=== PATIENT | female | born 1945 | race Caucasian/White ===

== ENCOUNTER → 2018-04-01 00:46 | Outpatient (CLI) | payer MEDICARE, OTHER, SELFPAY ==
--- NOTE | 2018-04-01 09:30 | MERGEMPI_ITS ---
*[facility]* *[facility]* [address] [place] [address] Myocardial Perfusion Imaging - SPECT Yao protocol Date of study: 04/01/2018 *PATIENT PRESENTATION* Height: 160cm (63in) Blood Pressure: Weight: 97.3kg (214lb) BSA: 2.13m^2 Referring physician: Joel Heaton Ordering physician: Jena Mitchell Impressions: In this patient with moderate risk sue treadmill score the pefusion scan being normal predicts a low risk of cardiac events. Summary: 1. Myocardial perfusion imaging: No myocardial perfusion defects noted. 2. The calculated left ventricular ejection fraction after stress: 63%. LV global systolic function is normal. No left ventricular regional motion abnormality. 3. Stress ECG conclusions: The stress ECG is negative. Sue treadmill score: 4. This score predicts a moderate risk of cardiac events. 4. Stress: The target heart rate was achieved. There is resting hypertension with a blunted response to stress. Exercise capacity is fair (6 METS). 5. Baseline ECG: Normal ECG. Indication: R07.9. History: REASON FOR TESTING: VERY OCASIONAL CHEST CRAMPING WITH LEFT ARM NUMBNESS. PMH: NEUROGENIC MEDIATED PRESYNCOPE, CEREBRAL POSTERIOR CIRCULATION DISEASE, SVT, HEADACHES, HYPERTENSION, SLEEP APNEA, GERD, HYPOTHYROIDISM, PROBABLE CVA VS TIA. 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 BREAST CANCER. FAMILY HX: FATHER-CAD. SMOKING: NEVER SMOKER. EXCERCISE: WALKS DAILY. Risk factors: Family history of coronary artery disease. Hypertension. Obesity. Cholesterol: 246mg/dl. HDL: 34mg/dl. LDL: 198mg/dl. Triglycerides: 144mg/dl. ALLERGIES: ANASTROZOLE 1 MG DAILY, DILTIAZEM HCL 300 MG DAILY, ESCITALOPRAM OXALATE 20 MG DAILY, FLAXSEED OIL 4000 MG DAILY, FLUTICASONE PROPIONATE 2 SPRAYS DAILY NEEDED, HYDROCHLOROTHIAZIDE 25 MG DAILY, ADVIL PM 1 NEEDED, LEVOTHYROXINE 137 MCG DAILY, LOSARTAN 100 MG DAILY, MAGNESIUM OXIDE 400 MG DAILY, OMEPRAZOLE 40 MG DAILY. Imaging Technique: Protocol: Yao protocol. Acquisition: Gated SPECT; 1 day - rest/stress. The patient was imaged in the supine position. Attenuation correction used. Isotope administration: - Rest. Tc[99m]-sestamibi. Dose: 10.4mCi. Injection time: 08:30 AM. Injection to stress time: 00:45. - Stress. Tc[99m]-sestamibi. Dose: 33mCi. Injection time: 10:50 AM. 1-2 min before end of exercise Baseline ECG: LAST EKG 06/13/16 SINUS RHYTHM, HR 60. TODAY'S EKG-SINUS RHYTHM, HR 69. Normal ECG. Stress protocol: + +---+ +---+ !Stage !HR !BP (mmHg) !Sat! + +---+ +---+ !Baseline supine !69 !168/80 (109)!---! + +---+ +---+ !Baseline standing !75 !166/80 (109)!97%! + +---+ +---+ !Stage I; 1.7mph, 10degrees; 3 min!119!174/80 (111)!95%! + +---+ +---+ !Recovery; 1 min !119!170/76 (107)!---! + +---+ +---+ !Recovery; 3 min !81 !178/80 (113)!---! + +---+ +---+ !Recovery; 6 min !76 !170/74 (106)!---! + +---+ +---+ * Stress results: Maximal heart rate during stress was 138bpm (95% of maximal predicted heart rate). The maximal predicted heart rate was 145bpm. The target heart rate was achieved. There is resting hypertension with a blunted response to stress. The rate-pressure product for the peak heart rate and blood pressure was 68134fm Hg/min. Exercise capacity is fair (6 METS). Stress ECG: EXCERCISE TESTING ENDED IN 4 MINS 14 SECS DUE TO FATIGUE. MAX HR WAS 138, 95% OF TARGET. NORMAL BLOOD PRESSURE RESPONSE. METS: 6.11 ECTOPY: NONE SEEN. ANGINA: NO REPORTED CHEST PAIN OR PRESSURE. ISCHEMIA: NO ISCHEMIC CHANGES NOTED. FUNCTIONAL CAPACITY: AVERAGE CAPACITY. The stress ECG is negative. Sue treadmill score: 4. This score predicts a moderate risk of cardiac events. Myocardial perfusion: Imaging information: gated. The image quality was good. Left ventricular size is normal. Right ventricular size is normal. No myocardial perfusion defects noted. Ventricular Function (Wall Motion): The calculated left ventricular ejection fraction after stress: 63%. LV global systolic function is normal. No left ventricular regional motion abnormality. Right ventricular function is normal. Study data: Joel Heaton MD supervised and was readily available during the procedure. This study was interpreted by [facility]. Study status: Routine. Consent: The risks, benefits, and alternatives to the procedure were explained to the patient and informed consent was obtained. Procedure: Initial setup. A baseline ECG was recorded. Surface ECG leads and manual cuff blood pressure measurements were monitored. Heart sounds: Normal. Lung sounds: Normal. Treadmill exercise testing was performed using the Yao protocol. Study completion: All catheters inserted during the procedure were removed. The patient tolerated the procedure well and was discharged from the lab. Discharge: The patient left the laboratory in stable condition. Birthdate: Patient birthdate: 1945. Sex: Gender: female. Study date: Study date: 04/01/2018. Study time: 12:30 PM. Signature Documentation: - The imaging portion of this study was interpreted by Nuclear Biomedical Engineer Joel Heaton MD. - The Stress ECG portion of this study was interpreted by Joel Heaton MD. Electronically signed by Joel Heaton 04/01/2018 13:04
== END ==
PROVIDERS: PCP Family Medicine; Visit Provider Family Medicine
DX: R07.89 Other chest pain (principal); R55 Syncope and collapse; R20.0 Anesthesia of skin; I10 Essential (primary) hypertension
CPT/HCPCS: 78452; 93017; 93016; 93018

== ENCOUNTER 2018-05-05 01:59 | Observation (INO) | payer MEDICARE, OTHER, SELFPAY ==
[2018-05-05] VITALS (14 sets, daily range): BP systolic 134–188; BP diastolic 43–83; PULSE 71–91; RESP 16–20; TEMP 36.1–37.1; O2SAT 93–98
[2018-05-05] MEDS: Normal Saline Flush 10 ML SYR IVP ×3 (02:15→08:30)
[2018-05-05 02:32] LABS: Bilirubin Negative (Negative); Blood Negative (Negative); Clarity Clear; Glucose Negative (Negative); Ketones Negative (Negative); Leukocyte Esterase Small (Negative); Nitrite Negative (Negative); Urobilinogen 0.2 EU/dL (Up TO 0.2); pH 5.5 (5-8)
--- NOTE | 2018-05-05 02:38 | W.ED.GENAD ---
Discharge Plan Disposition Patient Disposition: [facility] INPATIENT Condition: Good Discharge Details Chief Complaint: Abd Prob Clinical Impression: Right upper quadrant abdominal pain Primary Care Provider: Jena Mitchell ED Provider: Leonel iKng Meds and New Rx's Prescriptions: No Action anastrozole 1 MG tablet 1 mg PO DAILY RF: 0 diltiazem HCl [Cartia XT] 300 MG capsule,extended release 24hr 300 mg PO DAILY RF: 0 escitalopram oxalate 20 MG tablet 20 mg PO DAILY RF: 0 hydrochlorothiazide 12.5 MG tablet 25 mg PO DAILY RF: 0 ibuprofen-diphenhydramine cit [Advil PM] 1 EACH tablet 1 ea PO PRN RF: 0 levothyroxine 137 MCG tablet 150 mcg PO DAILY RF: 0 omeprazole 40 MG capsule,delayed release(DR/EC) 40 mg PO DAILY RF: 0 magnesium oxide 400 MG capsule 400 mg PO DAILY RF: 0 liraglutide [Victoza 2-Tray] 0.6 mg/0.1 mL (18 mg/3 mL) pen injector RF: 0 Medical Decision Making MDM Narrative Medical decision making narrative: Patient presenting with complaint of pleuritic right sided abdominal pain with tenderness and guarding in the RUQ making this most likely gall bladder disease. IV started and patient made NPO. Labs sent. CT scan ordered. Fentanyl ordered prn for pain. Labs are unremarkable. Urine is contaminated. CT scan shows hepatomegaly and distended gallbladder. Patient continues to have tenderness and guarding on exam. Discussed with surgery, Dr. Mishra for admission for fluids and pain medications and U/S this morning. Patient accepted to surgical service. EKG for admission ordered. Medical Records Medical records reviewed: Yes I reviewed the patient's medical records. Lab Data Lab results reviewed: Yes I reviewed the patient's lab results. Lab results narrative: Patient's labs are unremarkable. Normal WBC. Contaminated urine. ECG Data Attestation: I personally reviewed and interpreted this ECG (s) as follows: Interpretation: Normal sinus rhythm at 77 with normal axis and intervals. Normal EKG HPI - General Adult General Mode of arrival: ambulatory. Date/Time Provider Initiated Documentation: 05/05/18 02:38. Limitations to Documentation: no limitations. Information obtained by: patient, RN notes reviewed and old records reviewed. HPI Narrative: Patient presents to ED with right sided abdominal pain that she noticed just before bed. It has got worse as the night has gone on. She states it hurts more if she takes a deep breath but pain is in abdomen not chest or back. She does not feel short of breath at all. She denies any nausea or vomiting. She has had normal elimination without problems. She has had no fever. She has not noticed a rash. Related Data Home Medications Medication Instructions Recorded Confirmed levothyroxine 150 mcg PO DAILY 09/23/13 05/05/18 magnesium oxide 400 mg PO DAILY 09/23/13 05/05/18 omeprazole 40 mg PO DAILY 09/23/13 05/05/18 anastrozole 1 mg PO DAILY tab-cap 02/29/16 diltiazem HCl [Cartia Xt] 300 mg PO DAILY tab-cap 02/29/16 05/05/18 escitalopram oxalate 20 mg PO DAILY tab-cap 02/29/16 05/05/18 hydrochlorothiazide 25 mg PO DAILY tab-cap 02/29/16 05/05/18 ibuprofen-diphenhydramine cit 1 ea PO PRN 02/29/16 05/05/18 [Advil Pm Caplet] liraglutide [Victoza 2-Tray] 05/05/18 Allergies Allergy/AdvReac Type Severity Reaction Status Date / Time glipizide AdvReac Intermediate body aches Unverified 05/05/18 02:09 Jfaagcq-Kje-Jxr Reductase AdvReac Intermediate Unverified 05/05/18 02:09 Inhibitor General Stated Complaint: Abd Prob JUANITA: 3 Review of Systems Constitutional Denies chills, Denies fever(s), Denies malaise and Denies weakness Eyes Patient Reports system reviewed and no additional complaints, except as docu ENT Reports system reviewed and no additional complaints, except as docu Cardiovascular Denies chest pain, Denies pedal edema, Denies lightheadedness and Denies dyspnea Respiratory Denies cough, Reports pain on inspiration (in abdomen not chest) and Denies dyspnea Gastrointestinal Reports abdominal pain, Denies bloating, Denies constipation, Denies diarrhea, Denies nausea and Denies vomiting Genitourinary Denies hematuria, Denies urinary frequency, Denies difficulty voiding and Denies dysuria Musculoskeletal Reports system reviewed and no additional complaints, except as docu Integumentary/Breasts Reports system reviewed and no additional complaints, except as docu Neurologic Reports system reviewed and no additional complaints, except as docu and Denies weakness PFSH Medical History Diabetes mellitus (Chronic) SVT (supraventricular tachycardia) (Chronic) Syncope (Chronic) Breast Cancer GERD HTN Hypothyroidism Lymphoma Renal Artery stenosis Rotator Cuff Injury Social History Smoking/Tobacco Use Status: Never alcohol intake: never substance use type: does not use Surgical History Excision of neck mass Nail removal (toe) Partial mastectomy with sentinal node Rotator Cuff Repair Exam Const General: cooperative, comfortable and no acute distress Nutritional Appearance: obese Orientation: alert and oriented x3 HENMT Head: normocephalic and atraumatic Mouth: moist mucous membranes Eyes Sclera: sclerae normal Neck Neck: normal visual inspection and supple Resp Effort & Inspection: normal respiratory effort Auscultation: clear to auscultation bilaterally Cardio Rate: regular rate Rhythm: regular rhythm Heart Sounds: S1 normal and S2 normal Pulses: normal peripheral pulses GI Inspection: normal to inspection and non-distended Palpation: soft, not firm, guarding in the RUQ and tender in the RUQ and Guerrero's sign positive Back/Spine/Pelvis Back: no CVA tenderness Skin Rashes: no rashes Neuro General: alert, oriented x3, gait normal, no focal motor deficits and CN's II-XI intact bilaterally Sensory Exam: no sensory deficits noted Extrem General: normal to inspection, no pedal edema and no calf tenderness Course Vital Signs Temperature 97.2 F L 05/05/18 02:01 Pulse 87 05/05/18 02:01 Respiratory Rate 20 05/05/18 02:01 Blood Pressure 186/83 H 05/05/18 02:01 Pulse Oximetry 98 05/05/18 02:01 Temperature 97.2 F L 05/05/18 02:01 Pulse 87 05/05/18 02:01 Respiratory Rate 20 05/05/18 02:01 Blood Pressure 186/83 H 05/05/18 02:01 Pulse Oximetry 98 05/05/18 02:01
[2018-05-05 02:42] LABS: Abs Immature Grans 0.02 k/cumm (0.0-0.09); Absolute Basophil Count 0.02 k/cumm (0.0-0.2); Absolute Eosinophil Count 0.27 k/cumm (0.0-0.7); Absolute Lymphocyte Count 2.06 k/cumm (1.2-3.4); Absolute Monocyte Count 0.75 k/cumm (0.11-0.7); Basophils % 0.2; Eosinophils % 3.2; HCT 41.6 % (36.0-46.0); HGB 13.8 g/dL (12.0-15.5); Immature Grans % 0.2; Lymphocytes % 24.2; Mean Corp. HGB Concentration 33.2 g/dL (32.0-36.0); Mean Corpuscular Hemoglobin 31.2 pg (27.0-33.0); Mean Corpuscular Volume 93.9 fL (80-95); Monocytes % 8.8; Neutrophils % 63.4; Platelet Count 149 x1000/uL (130-400); RBC 4.43 m/cumm (4.00-5.20); RBC Distribution Width 13.9 % (11.7-14.6); White Blood Cell Count 8.52 k/cumm (4.4-10.8)
[2018-05-05 02:50] LABS: Bacteria Moderate HPF (Negative); C & S Indicated? No/Sq. Contamination; Casts Negative LPF (Negative); Crystals Negative HPF (Negative); Epithelial Cells Moderate HPF (Negative); Mucus Negative (Negative); RBC 0-2 (0-2); WBC 20-50 HPF (0-5)
[2018-05-05] MEDS: fentaNYL 100 MCG/2 ML VIAL 50 MCG IVP ×3 (02:53→08:29)
[2018-05-05] MEDS: Lactated Ringers 1,000 ML 150 ML IV (02:53)
[2018-05-05 02:54] LABS: Lipase 217 U/L (73-393)
[2018-05-05 02:59] LABS: ALT 55 U/L (12-78); AST 49 U/L (15-37); Albumin 3.6 g/dL (3.4-5.0); Alkaline Phosphatase 82 U/L (46-116); Anion Gap 7.6 mmol/L (3-11); BUN 20 mg/dL (7-18); Bilirubin, Total 0.6 mg/dL (0.2-1.0); CO2 29.4 mmol/L (21.0-32.0); CREATININE 1.04 mg/dL (0.55-1.02); Calcium 9.2 mg/dL (8.5-10.1); Chloride 103 mmol/L (98-107); Estimated GFR 51.66 (mL/min/1.73m2); Glucose 149 mg/dL (70-100); Potassium 3.9 mmol/L (3.5-5.1); Sodium 140 mmol/L (136-145); Total Protein 7.3 g/dL (6.4-8.2)
--- NOTE | 2018-05-05 03:04 | ED.GENADUL_ITS ---
Discharge Plan Disposition Patient Disposition: [facility] INPATIENT Condition: Good Discharge Details Chief Complaint: Abd Prob Clinical Impression: Right upper quadrant abdominal pain Primary Care Provider: Jena Mitchell ED Provider: Leonel King Meds and New Rx's Prescriptions: No Action anastrozole 1 MG tablet 1 mg PO DAILY RF: 0 diltiazem HCl [Cartia XT] 300 MG capsule,extended release 24hr 300 mg PO DAILY RF: 0 escitalopram oxalate 20 MG tablet 20 mg PO DAILY RF: 0 hydrochlorothiazide 12.5 MG tablet 25 mg PO DAILY RF: 0 ibuprofen-diphenhydramine cit [Advil PM] 1 EACH tablet 1 ea PO PRN RF: 0 levothyroxine 137 MCG tablet 150 mcg PO DAILY RF: 0 omeprazole 40 MG capsule,delayed release(DR/EC) 40 mg PO DAILY RF: 0 magnesium oxide 400 MG capsule 400 mg PO DAILY RF: 0 liraglutide [Victoza 2-Tray] 0.6 mg/0.1 mL (18 mg/3 mL) pen injector RF: 0 Medical Decision Making MDM Narrative Medical decision making narrative: Patient presenting with complaint of pleuritic right sided abdominal pain with tenderness and guarding in the RUQ making this most likely gall bladder disease. IV started and patient made NPO. Labs sent. CT scan ordered. Fentanyl ordered prn for pain. Labs are unremarkable. Urine is contaminated. CT scan shows hepatomegaly and distended gallbladder. Patient continues to have tenderness and guarding on exam. Discussed with surgery, Dr. Mishra for admission for fluids and pain medications and U/S this morning. Patient accepted to surgical service. EKG for admission ordered. Medical Records Medical records reviewed: Yes I reviewed the patient's medical records. Lab Data Lab results reviewed: Yes I reviewed the patient's lab results. Lab results narrative: Patient's labs are unremarkable. Normal WBC. Contaminated urine. ECG Data Attestation: I personally reviewed and interpreted this ECG (s) as follows: Interpretation: Normal sinus rhythm at 77 with normal axis and intervals. Normal EKG HPI - General Adult General Mode of arrival: ambulatory . Date/Time Provider Initiated Documentation: 05/05/18 02:38 . Limitations to Documentation: no limitations . Information obtained by: patient, RN notes reviewed and old records reviewed . HPI Narrative: Patient presents to ED with right sided abdominal pain that she noticed just before bed. It has got worse as the night has gone on. She states it hurts more if she takes a deep breath but pain is in abdomen not chest or back. She does not feel short of breath at all. She denies any nausea or vomiting. She has had normal elimination without problems. She has had no fever. She has not noticed a rash. Related Data Home Medications Medication Instructions Recorded Confirmed levothyroxine 150 mcg PO DAILY 09/23/13 05/05/18 magnesium oxide 400 mg PO DAILY 09/23/13 05/05/18 omeprazole 40 mg PO DAILY 09/23/13 05/05/18 anastrozole 1 mg PO DAILY tab-cap 02/29/16 diltiazem HCl [Cartia Xt] 300 mg PO DAILY tab-cap 02/29/16 05/05/18 escitalopram oxalate 20 mg PO DAILY tab-cap 02/29/16 05/05/18 hydrochlorothiazide 25 mg PO DAILY tab-cap 02/29/16 05/05/18 ibuprofen-diphenhydramine cit 1 ea PO PRN 02/29/16 05/05/18 [Advil Pm Caplet] liraglutide [Victoza 2-Tray] 05/05/18 Allergies Allergy/AdvReac Type Severity Reaction Status Date / Time glipizide AdvReac Intermediate body aches Unverified 05/05/18 02:09 Bjwzowx-Bet-Mox Reductase AdvReac Intermediate Unverified 05/05/18 02:09 Inhibitor General Stated Complaint: Abd Prob JUANITA: 3 Review of Systems Constitutional Denies chills, Denies fever(s), Denies malaise and Denies weakness Eyes Patient Reports system reviewed and no additional complaints, except as docu ENT Reports system reviewed and no additional complaints, except as docu Cardiovascular Denies chest pain, Denies pedal edema, Denies lightheadedness and Denies dyspnea Respiratory Denies cough, Reports pain on inspiration (in abdomen not chest) and Denies dyspnea Gastrointestinal Reports abdominal pain, Denies bloating, Denies constipation, Denies diarrhea, Denies nausea and Denies vomiting Genitourinary Denies hematuria, Denies urinary frequency, Denies difficulty voiding and Denies dysuria Musculoskeletal Reports system reviewed and no additional complaints, except as docu Integumentary/Breasts Reports system reviewed and no additional complaints, except as docu Neurologic Reports system reviewed and no additional complaints, except as docu and Denies weakness PFSH Medical History Diabetes mellitus (Chronic) SVT (supraventricular tachycardia) (Chronic) Syncope (Chronic) Breast Cancer GERD HTN Hypothyroidism Lymphoma Renal Artery stenosis Rotator Cuff Injury Social History Smoking/Tobacco Use Status: Never alcohol intake: never substance use type: does not use Surgical History Excision of neck mass Nail removal (toe) Partial mastectomy with sentinal node Rotator Cuff Repair Exam Const General: cooperative, comfortable and no acute distress Nutritional Appearance: obese Orientation: alert and oriented x3 HENMT Head: normocephalic and atraumatic Mouth: moist mucous membranes Eyes Sclera: sclerae normal Neck Neck: normal visual inspection and supple Resp Effort & Inspection: normal respiratory effort Auscultation: clear to auscultation bilaterally Cardio Rate: regular rate Rhythm: regular rhythm Heart Sounds: S1 normal and S2 normal Pulses: normal peripheral pulses GI Inspection: normal to inspection and non-distended Palpation: soft, not firm, guarding in the RUQ and tender in the RUQ and Guerrero' s sign positive Back/Spine/Pelvis Back: no CVA tenderness Skin Rashes: no rashes Neuro General: alert, oriented x3, gait normal, no focal motor deficits and CN's II- XI intact bilaterally Sensory Exam: no sensory deficits noted Extrem General: normal to inspection, no pedal edema and no calf tenderness Course Vital Signs Temperature 97.2 F L 05/05/18 02:01 Pulse 87 05/05/18 02:01 Respiratory Rate 20 05/05/18 02:01 Blood Pressure 186/83 H 05/05/18 02:01 Pulse Oximetry 98 05/05/18 02:01 Temperature 97.2 F L 05/05/18 02:01 Pulse 87 05/05/18 02:01 Respiratory Rate 20 05/05/18 02:01 Blood Pressure 186/83 H 05/05/18 02:01 Pulse Oximetry 98 05/05/18 02:01
[2018-05-05] MEDS: Omnipaque 350 MG/ML 100 ML BTL IJ (03:13)
--- NOTE | 2018-05-05 03:35 | DI.CT_ITS ---
SYMPTOM/DIAGNOSIS: RUQ PAIN AND TENDERNESS CT ABDOMEN AND PELVIS: Comparison is made with 25 Apr 2016. Images were performed from the lung bases through the ischial tuberosities after IV and without oral contrast. The lung bases are clear. The liver again shows a nodular contour, consistent with cirrhosis. No focal masses are seen. The gallbladder is unremarkable. No wall thickening, stones or abnormal distension seen. The spleen is generous in size measuring 13.5 cm x 15 x 6 cm. A small splenule is again noted. There are small lymph nodes in the region of the celiac axis unchanged The pancreas, adrenals and kidneys are unremarkable. There are mild varices adjacent to the spleen. There is no ascites. The appendix appears normal. There are diverticula in the sigmoid colon but no evidence of diverticulitis. There is a moderate quantity of stool. No small bowel dilatation or wall thickening seen. 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 The endometrium was unremarkable on the previous exam. The bladder appears normal. There are bilateral renal artery stents. There are atherosclerotic changes of the aorta and iliac arteries but no evidence of an aneurysm. Degenerative changes are noted in the spine. No lytic or blastic lesions are identified. IMPRESSION: No acute abnormalities identified. Stable findings of cirrhosis and mild splenomegaly. The gallbladder is unremarkable. Endometrial thickening is noted. Pelvic ultrasound could be considered for further evaluation.
--- NOTE | 2018-05-05 05:11 | DI.VRAD_ITS ---
EXAM: CT Abdomen and Pelvis With Intravenous Contrast EXAM DATE/TIME: 05/05/2018 2:42 AM CLINICAL HISTORY: 73 years old, female; Pain; Abdominal pain; Localized; Right; Patient HX: HX od breast CA in r breast 3 years ago, right sided pain today TECHNIQUE: Axial computed tomography images of the abdomen and pelvis with intravenous contrast. All CT scans at this facility use at least one of these dose optimization techniques: automated exposure control; mA and/or kV adjustment per patient size (includes targeted exams where dose is matched to clinical indication); or iterative reconstruction. Coronal and sagittal reformatted images were created and reviewed. CONTRAST: 100 ml of Omnipaque 350 administered intravenously. COMPARISON: CT - CHEST ABD PELVIS WITH CONTRAST 04/25/2016 9:08 AM FINDINGS: Lower thorax: No acute findings. ABDOMEN: Liver: Moderate hepatic steatosis. Contour of the liver is somewhat nodular. Moderate hepatomegaly. Gallbladder and bile ducts: Gallbladder is moderately distended. Pancreas: Normal. No ductal dilation. Spleen: Small accessory spleen (normal variant). Moderate splenomegaly. Adrenals: Normal. No mass. Kidneys and ureters: Bilateral renal stents are noted. Stomach and bowel: Normal. No obstruction. No mucosal thickening. Appendix: Normal appendix. PELVIS: Bladder: Unremarkable as visualized. Reproductive: Probable bicornuate uterus, better visualized on today's study than on the 2016 study. ABDOMEN and PELVIS: Intraperitoneal space: Normal. No free air. No significant fluid collection. Bones/joints: Moderate degenerative changes, lumbar spine. Mild lumbar scoliosis. Soft tissues: Small, fat containing umbilical hernia. Vasculature: Extensive atherosclerotic change of the aorta and iliac vessels. Aorta is moderately tortuous. Lymph nodes: Normal. No enlarged lymph nodes. IMPRESSION: No acute findings. Hepatocellular disease, moderate to severe. Normal appendix. No hydronephrosis or renal/ureteral calculus. No significant change from the previous study. Dictated and Authenticated by: Hansel Lopez MD. Ordering:FLACO HUTSON MD
--- NOTE | 2018-05-05 05:20 | DI.US_ITS ---
SYMPTOM/DIAGNOSIS: RUQ TENDERNESS/PAIN WITH POS GUERRERO ABDOMEN ULTRASOUND: Comparison is made with CT of the abdomen and pelvis performed earlier the same day. The liver has a coarse echotexture and nodular surface, consistent with cirrhosis. No biliary dilatation is seen. The gallbladder is unremarkable. No wall thickening, stones or sonographic Guerrero's sign seen. There is no ascites. A small accessory spleen is seen. The kidneys, pancreas and aorta are unremarkable. IMPRESSION: Cirrhotic appearing liver. Mild splenomegaly. No evidence of acute cholecystitis or cholelithiasis.
--- NOTE | 2018-05-05 10:45 | PDOC.CMIN ---
- If Service Date Differs Date of service: 05/05/18 Time of Service: 10:45 Care Management Initial Assess REASON FOR HOSPITALIZATION:: RUQ Pain. PAST MEDICAL HISTORY/PAST SURGICAL HISTORY:: Breast cancer, diabetes, GERD, hypertension, hypothyroidism, lymphoma, renal artery stenosis, SVT. Surgical hx: excision of neck mass, partial mastectomy with sentinal node, rotator cuff repair. PREVIOUS FUNCTIONAL STATUS/SOCIAL/FAMILY SUPPORTS:: Silvia resides in her own home in [place] with her , Andi. She has four adult children, two of whom reside locally. Silvia worked for years at [employer] in various capacities and retired five years ago. She reports that she has a great support system with her and children and has no concerns about returning home when medically ready. She is independent with her ADLs and transportation, however reports that she rarely drives at night unless necessary. CURRENT FUNCTIONAL STATUS:: Silvia is lying in bed in ICU when CM visits this morning. She is engaged in conversation, makes good eye contact and is talkative. Silvia reports that her pain is minimal unless she is taking deep breaths. She continues to receive IV fluids. Her ultrasound has just been completed and pt reports she is waiting for results. Silvia reports that she and her have been having difficulty getting their medications due to costs and insurance limitations. Her , Andi, had a [place] in February and is now reportedly taking nine different medications. Silvia reports that she has been taking victoza with good results but the cost is prohibitive. CM discussed [facility] and their services and Silvia agreed to a referral. CM spoke with [facility] and faxed referral; [facility] will follow up with Silvia following her discharge. ADVANCE DIRECTIVES:: None on file at [facility]. Has patient been provided with information about the portal?: Yes Did the patient sign up for the portal?: No CODE STATUS:: Full Code INSURANCE COVERAGE / FINANCIAL ISSUES:: Aetna, Medicare. CURRENT HOME/COMMUNITY SERVICES/EQUIPMENT:: Silvia has no current home or community services. PRIMARY CARE PHYSICIAN:: Jena Mitchell. POTENTIAL DISCHARGE NEEDS:: Follow up appointment with PCP. PATIENT/FAMILY EDUCATION NEEDS:: Discharge education, any limitations and follow up plan of care. Ask Me Three discussion. ANTICIPATED BARRIERS TO DISCHARGE:: No anticipated barriers to discharge. TRANSPORTATION:: Silvia will transport via private vehicle with , Andi. PLAN:: Silvia will discharge home when medically ready per MD. Anticipate pt will discharge with no services and a referral to [facility]. Silvia will follow up with her PCP and plan of care. CM will continue to provide support to patient, family and care team regarding discharge planning and disposition.
--- NOTE | 2018-05-05 10:59 | INITIAL_ITS ---
- If Service Date Differs Date of service: 05/05/18 Time of Service: 10:45 Care Management Initial Assess REASON FOR HOSPITALIZATION:: RUQ Pain. PAST MEDICAL HISTORY/PAST SURGICAL HISTORY:: Breast cancer, diabetes, GERD, hypertension, hypothyroidism, lymphoma, renal artery stenosis, SVT. Surgical hx : excision of neck mass, partial mastectomy with sentinal node, rotator cuff repair. PREVIOUS FUNCTIONAL STATUS/SOCIAL/FAMILY SUPPORTS:: Silvia resides in her own home in [place] with her , Andi. She has four adult children, two of whom reside locally. Silvia worked for years at [employer] in various capacities and retired five years ago. She reports that she has a great support system with her and children and has no concerns about returning home when medically ready. She is independent with her ADLs and transportation, however reports that she rarely drives at night unless necessary. CURRENT FUNCTIONAL STATUS:: Silvia is lying in bed in ICU when CM visits this morning. She is engaged in conversation, makes good eye contact and is talkative. Silvia reports that her pain is minimal unless she is taking deep breaths. She continues to receive IV fluids. Her ultrasound has just been completed and pt reports she is waiting for results. Silvia reports that she and her have been having difficulty getting their medications due to costs and insurance limitations. Her , Andi, had a [place] in February and is now reportedly taking nine different medications. Silvia reports that she has been taking victoza with good results but the cost is prohibitive. CM discussed [facility] and their services and Silvia agreed to a referral. CM spoke with [facility] and faxed referral; [facility] will follow up with Silvia following her discharge. ADVANCE DIRECTIVES:: None on file at [facility]. Has patient been provided with information about the portal?: Yes Did the patient sign up for the portal?: No CODE STATUS:: Full Code INSURANCE COVERAGE / FINANCIAL ISSUES:: Aetna, Medicare. CURRENT HOME/COMMUNITY SERVICES/EQUIPMENT:: Silvia has no current home or community services. PRIMARY CARE PHYSICIAN:: Jena Mitchell. POTENTIAL DISCHARGE NEEDS:: Follow up appointment with PCP. PATIENT/FAMILY EDUCATION NEEDS:: Discharge education, any limitations and follow up plan of care. Ask Me Three discussion. ANTICIPATED BARRIERS TO DISCHARGE:: No anticipated barriers to discharge. TRANSPORTATION:: Silvia will transport via private vehicle with , Andi. PLAN:: Silvia will discharge home when medically ready per MD. Anticipate pt will discharge with no services and a referral to [facility]. Silvia will follow up with her PCP and plan of care. CM will continue to provide support to patient, family and care team regarding discharge planning and disposition.
[2018-05-05] MEDS: Levothyroxine 150 MCG TAB PO (11:21)
[2018-05-05] MEDS: Hydrochlorothiazide 25 MG TAB PO (11:21)
[2018-05-05] MEDS: Magnesium Oxide 400 MG TAB PO (11:22)
--- NOTE | 2018-05-05 13:52 | CHAPLAIN ---
Silvia was in bed when I visited. She was pleasant and easily engaged in a conversation. 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 Silvia told me that test results and eliminated anything bad and she has a follow up appointment with her liver doctor at [facility]. She expects to be discharged later today. She had concerns about covering the cost of a new medication she was taking that was working well for her, and said that her Test Worker Rosa Maria Gonzalez was helping with a referral to the [facility] to see what resources were available to assist with medication expenses. I left when Silvia called.
--- NOTE | 2018-05-05 14:04 | HPE_ITS ---
Date of service: 05/05/18 Time of Service: 07:15 Assessment and Plan (1) RUQ abdominal pain: Start date: 05/05/18 Start time: 07:15 Current visit: Yes Status: Acute 73-year-old woman with a right upper quadrant abdominal pain, clinical exam findings the positive Guerrero sign. Normal laboratory studies. Will admit for pain control fluid hydration, and antiemetics. Will obtain ultrasound right upper quadrant to assess Gault for gallbladder pathology further recommendations be pending diagnostic findings History of Present Illness Chief Complaint: Right upper quadrant abdominal pain Narrative: 73-year-old woman presenting to the emergency room with less than 24 hours of gradual onset right upper quadrant abdominal. The pain started in the right upper quadrant last evening which felt like a small nagging sensation at the outset. The pain persisted through the night eventually waking her due to the intensity. She denies any fever, chills, malaise. She has had no associated nausea vomiting. She does not relate this to eating any particular foods. She has she has had no sick contacts. She has had no similar pain to this. She had a positive Guerrero sign on physical examination by the ER attending. Surgery was consulted to evaluate Review of Systems Constitutional Denies body ache(s), Denies chills, Denies excessive sweating, Denies fever(s), Denies frequent falls, Denies headache(s), Denies malaise, Denies night sweats and Denies weight loss Eyes Patient Denies blurry vision, Denies diplopia, Denies loss of vision and Reports requires corrective lenses ENT Denies dysphagia, Denies vertigo, Denies dizziness, Denies headache(s), Denies hearing loss, Denies hoarseness, Denies epistaxis, Denies neck pain, Denies tinnitus and Denies throat swelling Cardiovascular Denies chest pain at rest, Denies chest pain with activity, Denies syncope, Denies pedal edema, Denies irregular heart rhythm, Denies palpitations and Denies dyspnea Respiratory Denies chest congestion, Denies cough, Denies dyspnea and Denies wheezing Gastrointestinal Reports abdominal pain, Denies melena, Denies bloating, Denies hematochezia, Denies dysphagia, Denies nausea and Denies vomiting Genitourinary Denies urinary frequency, Denies urinary incontinence and Denies urinary hesitancy Musculoskeletal Denies back pain, Denies myalgias, Denies arthralgias, Denies neck pain and Denies stiffness Neurologic Denies vertigo, Denies dizziness, Denies syncope, Denies frequent falls, Denies headache(s), Denies loss of vision and Denies seizure-like activity Psychiatric Denies difficulty concentrating, Denies irritability and Denies mood swings Endocrine Denies excessive sweating and Denies palpitations Hematologic/Lymphatic Denies easy bleeding and Denies easy bruising Allergic/Immunologic Denies throat swelling and Denies wheezing PFSH Medical History Diabetes mellitus (Chronic) SVT (supraventricular tachycardia) (Chronic) Syncope (Chronic) Breast Cancer GERD HTN Hypothyroidism Lymphoma Renal Artery stenosis Rotator Cuff Injury Social History Smoking/Tobacco Use Status: Never alcohol intake: never substance use type: does not use Surgical History Excision of neck mass Nail removal (toe) Partial mastectomy with sentinal node Rotator Cuff Repair Female Reproductive History Menstrual Menopause type: natural Meds Home Medications Medication Instructions Recorded Confirmed Type levothyroxine 150 mcg PO DAILY 09/23/13 05/05/18 History magnesium oxide 400 mg PO DAILY 09/23/13 05/05/18 History omeprazole 40 mg PO DAILY 09/23/13 05/05/18 History anastrozole 1 mg PO DAILY tab-cap 02/29/16 History diltiazem HCl [Cartia Xt] 300 mg PO DAILY tab-cap 02/29/16 05/05/18 History escitalopram oxalate 20 mg PO DAILY tab-cap 02/29/16 05/05/18 History hydrochlorothiazide 25 mg PO DAILY tab-cap 02/29/16 05/05/18 History ibuprofen-diphenhydramine cit 1 ea PO PRN 02/29/16 05/05/18 History [Advil Pm Caplet] liraglutide [Victoza 2-Tray] 05/05/18 History Allergies Allergy/AdvReac Type Severity Reaction Status Date / Time glipizide AdvReac Intermediate body aches Unverified 05/05/18 02:09 [id number] Reductase AdvReac Intermediate Unverified 05/05/18 02:09 Inhibitor Exam Const General: cooperative, comfortable and no acute distress Nutritional Appearance: obese Orientation: alert, awake and oriented x3 HENMT Head: normocephalic and atraumatic Ears: hearing grossly normal bilaterally General nose exam: external nose normal Face and sinus: normal facial exam Mouth: moist mucous membranes Eyes General: appearance normal, both eyes and all related structures Conjunctivae: conjunctivae normal Sclera: sclerae normal Pupils: PERRL EOM: EOM intact bilaterally Neck Neck: normal visual inspection, trachea midline and supple Resp Effort & Inspection: normal respiratory effort, no audible wheezes and not labored Cardio Rate: regular rate Rhythm: regular rhythm Pulses: normal peripheral pulses GI Inspection: non-distended, large pannus and obesity Palpation: soft, no guarding and tender in the RUQ; with no rebound tenderness Rectal Exam - female: deferred Skin General skin exam: no rashes or lesions noted and turgor normal Neuro General: moves all extremities, no focal motor deficits and CN's II-XI intact bilaterally Extrem General: no clubbing, cyanosis or edema Psych Mental Status: mental status grossly normal Affect: normal affect Attitude: cooperative Judgment: judgment good Results Labs : 05/05/18 02:15 05/05/18 02:15 Laboratory Results - last 24 hr 05/05/18 05/05/18 05/05/18 02:09 02:15 02:15 WBC 8.52 RBC 4.43 Hgb 13.8 Hct 41.6 MCV 93.9 MCH 31.2 MCHC 33.2 RDW 13.9 Plt Count 149 MPV 11.0 Immature Gran % 0.2 Neutrophils % 63.4 Lymphocytes % 24.2 Monocytes % 8.8 Eosinophils % 3.2 Basophils % 0.2 Absolute Neutrophils 5.40 Absolute Lymphocytes 2.06 Absolute Monocytes 0.75 H Absolute Eosinophils 0.27 Absolute Basophils 0.02 Sodium 140 Potassium 3.9 Chloride 103 Carbon Dioxide 29.4 Anion Gap 7.6 BUN 20 H Creatinine 1.04 H Estimated GFR/1.73 m2 51.66 Glucose 149 H Calcium 9.2 Total Bilirubin 0.6 AST 49 H ALT 55 Alkaline Phosphatase 82 Total Protein 7.3 Albumin 3.6 Lipase Urine Color Yellow Urine Clarity Clear Urine pH 5.5 Ur Specific [place] 1.010 Urine Protein Negative Urine Ketones Negative Urine Blood Negative Urine Nitrite Negative Urine Bilirubin Negative Urine Urobilinogen 0.2 Ur Leukocyte Esterase Small H Urine RBC 0-2 Urine WBC 20-50 Ur Epithelial Cells Moderate Urine Crystals Negative Urine Bacteria Moderate Urine Casts Negative Urine Mucus Negative Ur Culture Indicated? No/sq. contamination Urine Glucose Negative 05/05/18 02:15 WBC RBC Hgb Hct MCV MCH MCHC RDW Plt Count MPV Immature Gran % Neutrophils % Lymphocytes % Monocytes % Eosinophils % Basophils % Absolute Neutrophils Absolute Lymphocytes Absolute Monocytes Absolute Eosinophils Absolute Basophils Sodium Potassium Chloride Carbon Dioxide Anion Gap BUN Creatinine Estimated GFR/1.73 m2 Glucose Calcium Total Bilirubin AST ALT Alkaline Phosphatase Total Protein Albumin Lipase 217 Urine Color Urine Clarity Urine pH Ur Specific [place] Urine Protein Urine Ketones Urine Blood Urine Nitrite Urine Bilirubin Urine Urobilinogen Ur Leukocyte Esterase Urine RBC Urine WBC Ur Epithelial Cells Urine Crystals Urine Bacteria Urine Casts Urine Mucus Ur Culture Indicated? Urine Glucose
--- NOTE | 2018-05-05 15:11 | DSE_ITS ---
Date of service: 05/05/18 Time of Service: 15:00 DS: Diagnosis Discharge Diagnosis (1) Right flank pain: Start date: 05/04/18 Status: Acute Asessment and Plan: A\\ Right Flank pain associated with activity and breathing. Not affected by eating. US showed cirrhosis of the liver and normal gallbladder P\\ D/C home on Ibuprofen and Tylenol Heat and ice alternating. Follow up with PCP Discharge Plan Disposition Patient Disposition: HOME Condition: Good Discharge Details Reason For Visit: right Flank pain Admit Date/Time: 05/05/18 05:22 Admit Provider: Brennon Mishra Attending Provider: Brennon Mishra Primary Care Provider: Jena Mitchell [facility] Course Hospital Course: Mrs. Vega is a pleasant 73 year old admitted early this morning for Abdominal pain and ? Gallbladder disease. CT scan showed a dilated Gallbladder. Us was done this am and showed cirrhosis of the liver and a normal Galbladder. Patient was started on a diet which she tolerated well. No N/V. No increase in pain with eating. Patient states pain is about the same as when it started. Pain is made worse with movement and breathing. On exam pain is located mostly in the right flank area. There is bruising in the RUQ of the abdominal wall. No Murphies sign. Patient had a normal BM today and is urinating without pain. Home Meds and New Rx's Prescriptions: Continue anastrozole 1 MG tablet 1 mg PO DAILY RF: 0 diltiazem HCl [Cartia XT] 300 MG capsule,extended release 24hr 300 mg PO DAILY RF: 0 escitalopram oxalate 20 MG tablet 20 mg PO DAILY RF: 0 hydrochlorothiazide 12.5 MG tablet 25 mg PO DAILY RF: 0 ibuprofen-diphenhydramine cit [Advil PM] 1 EACH tablet 1 ea PO PRN RF: 0 levothyroxine 137 MCG tablet 150 mcg PO DAILY RF: 0 omeprazole 40 MG capsule,delayed release(DR/EC) 40 mg PO DAILY RF: 0 magnesium oxide 400 MG capsule 400 mg PO DAILY RF: 0 liraglutide 0.6 mg/0.1 mL (18 mg/3 mL) pen injector RF: 0 Discharge Instructions Additional Instructions: Please follow up with your Primary care Physician. Please return to the ED if you develop: fevers >101.5 Nausea or Vomiting Increased shortness of breath Worsening abdominal pain Referrals: Jena Mitchell MD [Primary Care Provider] - (Please see patient for admission follow up. No acute surgical issues found. ) Activity:: Activity as Tolerated Equipment/Supplies:: No Equipment Needed Diet:: Diabetic, heart healthy DS: Summary Time Spent with Patient Greater than 30 minutes Exam Const General: comfortable and no acute distress GI Inspection: abdominal wall ecchymosis (RUQ small bruise is noted) Palpation: soft and tender (Pain in the right flanki area just above the pelvic bone. No guarding or rebound) Abdomen image: 2 1. DS: Data Vitals/I&O Vitals and I&O: Vital Signs Temp 97.0 F L 05/05/18 09:47 Pulse 72 05/05/18 11:25 Resp 18 05/05/18 06:36 BP 185/69 H 05/05/18 11:25 Pulse Ox 96 05/05/18 09:57 Intake & Output 05/04/18 05/05/18 05/05/18 23:59 11:59 23:59 Intake Total 1242.5 / 1242.5 577.5 / 577.5 Output Total 850 / 850 Balance 392.5 / 392.5 577.5 / 577.5 Weight 216 lb 0.848 oz Intake: IV 1242.5 / 1242.5 157.5 / 157.5 Oral 420 / 420 Output: Urine 850 / 850 Other: Urine Color Yellow Urine Appearance Clear Urine Odor None Stool Characteristics Soft Formed Brown Voiding Methods Bedside Commode Labs on day of discharge: Labs from last 24 hours 05/05/18 05/05/18 05/05/18 02:15 02:15 02:15 WBC 8.52 RBC 4.43 Hgb 13.8 Hct 41.6 MCV 93.9 MCH 31.2 MCHC 33.2 RDW 13.9 Plt Count 149 MPV 11.0 Immature Gran % 0.2 Neutrophils % 63.4 Lymphocytes % 24.2 Monocytes % 8.8 Eosinophils % 3.2 Basophils % 0.2 Absolute Neutrophils 5.40 Absolute Lymphocytes 2.06 Absolute Monocytes 0.75 H Absolute Eosinophils 0.27 Absolute Basophils 0.02 Sodium 140 Potassium 3.9 Chloride 103 Carbon Dioxide 29.4 Anion Gap 7.6 BUN 20 H Creatinine 1.04 H Estimated GFR/1.73 m2 51.66 Glucose 149 H Calcium 9.2 Total Bilirubin 0.6 AST 49 H ALT 55 Alkaline Phosphatase 82 Total Protein 7.3 Albumin 3.6 Lipase 217 Urine Color Urine Clarity Urine pH Ur Specific [place] Urine Protein Urine Ketones Urine Blood Urine Nitrite Urine Bilirubin Urine Urobilinogen Ur Leukocyte Esterase Urine RBC Urine WBC Ur Epithelial Cells Urine Crystals Urine Bacteria Urine Casts Urine Mucus Ur Culture Indicated? Urine Glucose 05/05/18 02:09 WBC RBC Hgb Hct MCV MCH MCHC RDW Plt Count MPV Immature Gran % Neutrophils % Lymphocytes % Monocytes % Eosinophils % Basophils % Absolute Neutrophils Absolute Lymphocytes Absolute Monocytes Absolute Eosinophils Absolute Basophils Sodium Potassium Chloride Carbon Dioxide Anion Gap BUN Creatinine Estimated GFR/1.73 m2 Glucose Calcium Total Bilirubin AST ALT Alkaline Phosphatase Total Protein Albumin Lipase Urine Color Yellow Urine Clarity Clear Urine pH 5.5 Ur Specific [place] 1.010 Urine Protein Negative Urine Ketones Negative Urine Blood Negative Urine Nitrite Negative Urine Bilirubin Negative Urine Urobilinogen 0.2 Ur Leukocyte Esterase Small H Urine RBC 0-2 Urine WBC 20-50 Ur Epithelial Cells Moderate Urine Crystals Negative Urine Bacteria Moderate Urine Casts Negative Urine Mucus Negative Ur Culture Indicated? No/sq. contamination Urine Glucose Negative
== END 2018-05-05 16:00 | disposition home or self-care (01) ==
LOC: ER 05:43 → ICU 07:16
PROVIDERS: Admitting Provider Surgery; Emergency Provider Emergency Medicine; PCP Family Medicine; Visit Provider Surgery
DX: R10.11 Right upper quadrant pain (principal); K74.60 Unspecified cirrhosis of liver; E11.9 Type 2 diabetes mellitus without complications; I10 Essential (primary) hypertension; K21.9 Gastro-esophageal reflux disease without esophagitis; E03.9 Hypothyroidism, unspecified
CPT/HCPCS: 36415; 80053; 83690; 93005; 96361; 96374; 96376; 99222; 99235; 99238; 99285; 74177; 76700; 81003; 81015; 85025; 93010; G0378; J3010; J3490

== ENCOUNTER 2018-05-11 20:57 | Inpatient (IN) | payer MEDICARE, SELFPAY ==
[2018-05-11] VITALS (29 sets, daily range): BP systolic 124–175; BP diastolic 53–71; PULSE 81–111; RESP 14–35; TEMP 37.1–38.1; O2SAT 90–95
--- NOTE | 2018-05-11 22:06 | DI.CT_ITS ---
SYMPTOM/DIAGNOSIS: HEADACHE, CONFUSION NONCONTRAST HEAD CT: A noncontrast enhanced examination was carried out. There is no evidence of an intra/extra-axial hemorrhage. The ventricles are unremarkable. There is no skull fracture. The soft tissues are unremarkable. The sinuses are intact. There is no evidence of a mastoid effusion. SUMMARY: No evidence of an acute intracranial abnormality.
--- NOTE | 2018-05-11 22:06 | DI.RAD_ITS ---
SYMPTOM/DIAGNOSIS: FEVER, CONFUSION PA AND LATERAL CHEST: The heart is normal in size. The lungs are clear. The mediastinal structures and pleura appear intact. CONCLUSION: Normal chest. No evidence of acute cardiopulmonary disease.
--- NOTE | 2018-05-11 22:09 | W.ED.GENAD ---
Discharge Plan Disposition Patient Disposition: [facility] INPATIENT Condition: Serious Discharge Details Chief Complaint: Fever Clinical Impression: Sepsis, Urinary tract infection Primary Care Provider: Jena Mitchell ED Provider: Velvet Holguin Home Meds and New Rx's Prescriptions: No Action anastrozole 1 MG tablet 1 mg PO DAILY RF: 0 diltiazem HCl [Cartia XT] 300 MG capsule,extended release 24hr 300 mg PO DAILY RF: 0 escitalopram oxalate 20 MG tablet 20 mg PO DAILY RF: 0 hydrochlorothiazide 12.5 MG tablet 25 mg PO DAILY RF: 0 ibuprofen-diphenhydramine cit [Advil PM] 1 EACH tablet 1 ea PO PRN RF: 0 levothyroxine 137 MCG tablet 150 mcg PO DAILY RF: 0 omeprazole 40 MG capsule,delayed release(DR/EC) 40 mg PO DAILY RF: 0 magnesium oxide 400 MG capsule 400 mg PO DAILY RF: 0 liraglutide 0.6 mg/0.1 mL (18 mg/3 mL) pen injector RF: 0 Medical Decision Making MDM Narrative Medical decision making narrative: Patient presents today with chief complaint of fever. On exam, thought process seemed somewhat delayed. She not having garbled speech but seems to be having difficulty forming her thoughts and expressing herself. She did seem frustrated by this. Her reports that this began around 11:00 today. She is currently endorsing headache. She does appear dry on exam. Patient is tachycardic, tachypneic and febrile. Lungs are clear on exam. Her equal pupils are equal with. Neuro exam is otherwise intact. No chest pain on history or with palpation. No abdominal pain on exam. Patient was seen here recently for right-sided abdominal pain but she reports that the symptoms have not been present for the past few days. She denies any nausea vomiting. No change in bowel habits. Her only other complaint is increased frequency and urgency over the past 24 hours. Denies any dyspareunia. No history of nephrolithiasis. No recent catheter placement. We will obtain laboratory evaluation, CT of the head, chest x-ray and urinalysis. Patient's findings are concerning primarily for urosepsis . Patient has history of diabetes. Reports that she has not been controlling her sugars well as she recently ran out of her Victoza at the beginning of the month. Reports that over the past few days her glucose has been around the 170s-180s. IV was started, patient will receive bolus. Chest x-ray reviewed by radiologist. Advised the lungs are unremarkable no consolidation, pneumothorax, no cardiomegaly, mediastinum is unremarkable, degenerative changes noted in the thoracic spine, atherosclerosis noted in the aortic arch. Advise overall no infiltrates or effusion CT of the patient's head also reviewed by radiologist. Advised brain is unremarkable no hemorrhage, significant white matter disease and no edema. No ventriculomegaly. No acute fracture. Soft tissues are unremarkable. Sinuses are unremarkable, no acute sinusitis. Estimated air cells are unremarkable as visualized. No mass effusion advise overall, no acute focal intracranial lesion Laboratory evaluation significant for WBC of 15.6, neutrophil of 12.14, BUN of 30, creatinine of 1.52, glucose of 234, lactate of 2.9. Urinalysis is concerning for trace blood, trace leukocytes and moderate bacteria and a clean-catch with no epithelial contamination. Given the patient's history, symptoms and laboratory evaluation I am primarily concerned for urosepsis. Patient will begin on 2 g of ceftriaxone. She is currently on her second liter of IV fluid Discussed findings with the patient. I did advise hospitalization for urosepsis. Patient was understanding is in agreement with this plan. Consulted with Dr. Villar regarding dx of urosepsis and admission. He agrees to admission and will place admission orders [facility] - General Adult General Mode of arrival: ambulatory. Date/Time Provider Initiated Documentation: 05/11/18 21:36. Limitations to Documentation: no limitations. Information obtained by: patient and family. HPI Narrative: Patient is 73-year-old female presenting today with chief complaint of fever. She is accompanied by her . Patient was seen here 6 days ago for right-sided abdominal pain. Was evaluated by general surgeons with concern for cholecystitis. Was noted to have some cirrhosis on exam. Patient was ruled out and discharged home. She reports that the right-sided pain she has been having has greatly improved since that time. However, she reports that today she awoke feeling not well. Is endorsing fevers. Has noted increased frequency and urgency of urination. Denies any dysuria or hematuria. Denies any back pain. She is also endorsing headache. She denies any visual changes. No nausea vomiting no change in bowel movements. She reports that she had typical BM today. is also noted her to be increasingly confused and having difficulty expressing her thoughts since approximately 11:00 this morning. No head trauma. No known sick contacts. No recent travel. She denies any leg pain, has not noted any swelling. Denies any chest pain, shortness of breath or difficulty breathing. Patient has history of GERD, hypertension, hyperlipidemia, breast cancer, depression, diabetes type 2, peptic ulcer disease and peripheral vascular disease. Related Data Home Medications Medication Instructions Recorded Confirmed levothyroxine 150 mcg PO DAILY 09/23/13 05/05/18 magnesium oxide 400 mg PO DAILY 09/23/13 05/05/18 omeprazole 40 mg PO DAILY 09/23/13 05/05/18 anastrozole 1 mg PO DAILY tab-cap 02/29/16 diltiazem HCl [Cartia XT] 300 mg PO DAILY tab-cap 02/29/16 05/05/18 escitalopram oxalate 20 mg PO DAILY tab-cap 02/29/16 05/05/18 hydrochlorothiazide 25 mg PO DAILY tab-cap 02/29/16 05/05/18 ibuprofen-diphenhydramine cit 1 ea PO PRN 02/29/16 05/05/18 [Advil PM] liraglutide 05/05/18 Allergies Allergy/AdvReac Type Severity Reaction Status Date / Time glipizide AdvReac Intermediate body aches Unverified 05/11/18 21:12 [id number] Reductase AdvReac Intermediate Unverified 05/11/18 21:12 Inhibitor General Stated Complaint: Fever JUANITA: 3 Review of Systems Constitutional Reports as per HPI, Reports chills, Reports fatigue, Reports fever(s), Reports headache(s) and Reports poor appetite ENT Reports headache(s) Cardiovascular Denies chest pain, Denies chest pain at rest, Denies chest pain with activity, Denies syncope, Denies edema, Denies irregular heart rhythm, Denies palpitations and Denies dyspnea on exertion Respiratory Denies cough, Denies hemoptysis and Denies dyspnea on exertion Gastrointestinal Reports as per HPI, Denies abdominal pain, Denies change in bowel habits, Denies nausea and Denies vomiting Genitourinary Reports as per HPI, Reports urinary frequency, Denies dysuria, Denies pelvic pain, Reports urinary incontinence, Reports urinary urgency and Denies vaginal discharge Musculoskeletal Denies abnormal gait and Denies back pain Integumentary/Breasts Denies rash Neurologic Denies abnormal gait, Denies syncope and Reports headache(s) Endocrine Reports fatigue and Denies palpitations PFSH Medical History Diabetes mellitus (Chronic) SVT (supraventricular tachycardia) (Chronic) Syncope (Chronic) Breast Cancer GERD HTN Hypothyroidism Lymphoma Renal Artery stenosis Rotator Cuff Injury Social History Smoking/Tobacco Use Status: Never alcohol intake: never substance use type: does not use Surgical History Excision of neck mass Nail removal (toe) Partial mastectomy with sentinal node Rotator Cuff Repair Female Reproductive History Menstrual Menopause type: natural Exam Const General: cooperative, comfortable, no acute distress, well developed, well groomed, not anxious, diaphoretic, ill appearing and No well hydrated Nutritional Appearance: well nourished and overweight Orientation: alert and awake HENMT Head: normal to inspection, normocephalic and atraumatic Ears: hearing grossly normal bilaterally and external ears normal Mouth: mucous membranes dry (mucous membranes dry) Teeth and gingiva: dentition normal Throat: posterior oropharynx normal Neck Neck: normal visual inspection, full ROM, no lymphadenopathy and no meningeal signs Resp Effort & Inspection: normal respiratory effort, able to speak in complete sentences and no respiratory distress Auscultation: clear to auscultation bilaterally, no crackles, no rales, no rhonchi and no wheezes Cardio Rate: tachycardic Rhythm: regular rhythm Heart Sounds: S1 normal and S2 normal GI Inspection: normal to inspection, abdominal wall ecchymosis (patient has a 3cm circular area of ecchymosis over the right side of the abdomen. No pain with palpation. Appears to be in later stage of healing with yellowing of the skin. ), no edema, non-distended and no incisions Palpation: soft, no hepatosplenomegaly, no aortic enlargement, not firm, no guarding, no masses, not rigid and nontender Auscultation: normal bowel sounds Back/Spine/Pelvis Back: no CVA tenderness, No back tenderness and other (no rash noted) Skin General skin exam: no rashes or lesions noted Neuro General: alert, awake and oriented x3 Cranial Nerves: CN's II-XI intact bilaterally Cognition: normal cognition Speech: abnormal speech (Patient is having difficulty with expressing thoughts, appears slightly confused and appears frustrated with this difficulty) Gait: gait assisted (brought in via wheelchair. Unstead with stand and pivot per nursing report) Extrem General: normal to inspection, no pedal edema and no calf tenderness Psych Appearance: grossly normal and well kempt Mental Status: mental status grossly normal Speech and Movement: delayed speech Mood: congruent mood Affect: normal affect Attitude: cooperative Course Vital Signs Temperature 38.1 C H 05/11/18 21:09 Pulse 111 H 05/11/18 21:09 Respiratory Rate 26 H 05/11/18 21:09 Blood Pressure 154/64 H 05/11/18 21:09 Pulse Oximetry 93 L 05/11/18 21:09 Temperature 38.1 C H 05/11/18 21:09 Pulse 97 H 05/11/18 22:01 Respiratory Rate 21 05/11/18 22:01 Blood Pressure 170/69 H 05/11/18 22:01 Pulse Oximetry 90 L 05/11/18 21:50
--- NOTE | 2018-05-11 22:12 | ED.GENADUL_ITS ---
Discharge Plan Disposition Patient Disposition: [facility] INPATIENT Condition: Serious Discharge Details Chief Complaint: Fever Clinical Impression: Sepsis, Urinary tract infection Primary Care Provider: Jena Mitchell ED Provider: Velvet Holguin Home Meds and New Rx's Prescriptions: No Action anastrozole 1 MG tablet 1 mg PO DAILY RF: 0 diltiazem HCl [Cartia XT] 300 MG capsule,extended release 24hr 300 mg PO DAILY RF: 0 escitalopram oxalate 20 MG tablet 20 mg PO DAILY RF: 0 hydrochlorothiazide 12.5 MG tablet 25 mg PO DAILY RF: 0 ibuprofen-diphenhydramine cit [Advil PM] 1 EACH tablet 1 ea PO PRN RF: 0 levothyroxine 137 MCG tablet 150 mcg PO DAILY RF: 0 omeprazole 40 MG capsule,delayed release(DR/EC) 40 mg PO DAILY RF: 0 magnesium oxide 400 MG capsule 400 mg PO DAILY RF: 0 liraglutide 0.6 mg/0.1 mL (18 mg/3 mL) pen injector RF: 0 Medical Decision Making MDM Narrative Medical decision making narrative: Patient presents today with chief complaint of fever. On exam, thought process seemed somewhat delayed. She not having garbled speech but seems to be having difficulty forming her thoughts and expressing herself. She did seem frustrated by this. Her reports that this began around 11:00 today. She is currently endorsing headache. She does appear dry on exam. Patient is tachycardic, tachypneic and febrile. Lungs are clear on exam. Her equal pupils are equal with. Neuro exam is otherwise intact. No chest pain on history or with palpation. No abdominal pain on exam. Patient was seen here recently for right-sided abdominal pain but she reports that the symptoms have not been present for the past few days. She denies any nausea vomiting. No change in bowel habits. Her only other complaint is increased frequency and urgency over the past 24 hours. Denies any dyspareunia. No history of nephrolithiasis. No recent catheter placement. We will obtain laboratory evaluation, CT of the head, chest x-ray and urinalysis. Patient's findings are concerning primarily for urosepsis . Patient has history of diabetes. Reports that she has not been controlling her sugars well as she recently ran out of her Victoza at the beginning of the month. Reports that over the past few days her glucose has been around the 170s -180s. IV was started, patient will receive bolus. Chest x-ray reviewed by radiologist. Advised the lungs are unremarkable no consolidation, pneumothorax, no cardiomegaly, mediastinum is unremarkable, degenerative changes noted in the thoracic spine, atherosclerosis noted in the aortic arch. Advise overall no infiltrates or effusion CT of the patient's head also reviewed by radiologist. Advised brain is unremarkable no hemorrhage, significant white matter disease and no edema. No ventriculomegaly. No acute fracture. Soft tissues are unremarkable. Sinuses are unremarkable, no acute sinusitis. Estimated air cells are unremarkable as visualized. No mass effusion advise overall, no acute focal intracranial lesion Laboratory evaluation significant for WBC of 15.6, neutrophil of 12.14, BUN of 30, creatinine of 1.52, glucose of 234, lactate of 2.9. Urinalysis is concerning for trace blood, trace leukocytes and moderate bacteria and a clean- catch with no epithelial contamination. Given the patient's history, symptoms and laboratory evaluation I am primarily concerned for urosepsis. Patient will begin on 2 g of ceftriaxone. She is currently on her second liter of IV fluid Discussed findings with the patient. I did advise hospitalization for urosepsis. Patient was understanding is in agreement with this plan. Consulted with Dr. Villar regarding dx of urosepsis and admission. He agrees to admission and will place admission orders [facility] - General Adult General Mode of arrival: ambulatory . Date/Time Provider Initiated Documentation: 05/11/18 21:36 . Limitations to Documentation: no limitations . Information obtained by: patient and family . HPI Narrative: Patient is 73-year-old female presenting today with chief complaint of fever. She is accompanied by her . Patient was seen here 6 days ago for right-sided abdominal pain. Was evaluated by general surgeons with concern for cholecystitis. Was noted to have some cirrhosis on exam. Patient was ruled out and discharged home. She reports that the right-sided pain she has been having has greatly improved since that time. However, she reports that today she awoke feeling not well. Is endorsing fevers. Has noted increased frequency and urgency of urination. Denies any dysuria or hematuria. Denies any back pain. She is also endorsing headache. She denies any visual changes. No nausea vomiting no change in bowel movements. She reports that she had typical BM today. is also noted her to be increasingly confused and having difficulty expressing her thoughts since approximately 11: 00 this morning. No head trauma. No known sick contacts. No recent travel. She denies any leg pain, has not noted any swelling. Denies any chest pain, shortness of breath or difficulty breathing. Patient has history of GERD, hypertension, hyperlipidemia, breast cancer, depression, diabetes type 2, peptic ulcer disease and peripheral vascular disease. Related Data Home Medications Medication Instructions Recorded Confirmed levothyroxine 150 mcg PO DAILY 09/23/13 05/05/18 magnesium oxide 400 mg PO DAILY 09/23/13 05/05/18 omeprazole 40 mg PO DAILY 09/23/13 05/05/18 anastrozole 1 mg PO DAILY tab-cap 02/29/16 diltiazem HCl [Cartia XT] 300 mg PO DAILY tab-cap 02/29/16 05/05/18 escitalopram oxalate 20 mg PO DAILY tab-cap 02/29/16 05/05/18 hydrochlorothiazide 25 mg PO DAILY tab-cap 02/29/16 05/05/18 ibuprofen-diphenhydramine cit 1 ea PO PRN 02/29/16 05/05/18 [Advil PM] liraglutide 05/05/18 Allergies Allergy/AdvReac Type Severity Reaction Status Date / Time glipizide AdvReac Intermediate body aches Unverified 05/11/18 21:12 [id number]-Ztc-Xyb Reductase AdvReac Intermediate Unverified 05/11/18 21:12 Inhibitor General Stated Complaint: Fever JUANITA: 3 Review of Systems Constitutional Reports as per HPI, Reports chills, Reports fatigue, Reports fever(s), Reports headache(s) and Reports poor appetite ENT Reports headache(s) Cardiovascular Denies chest pain, Denies chest pain at rest, Denies chest pain with activity, Denies syncope, Denies edema, Denies irregular heart rhythm, Denies palpitations and Denies dyspnea on exertion Respiratory Denies cough, Denies hemoptysis and Denies dyspnea on exertion Gastrointestinal Reports as per HPI, Denies abdominal pain, Denies change in bowel habits, Denies nausea and Denies vomiting Genitourinary Reports as per HPI, Reports urinary frequency, Denies dysuria, Denies pelvic pain, Reports urinary incontinence, Reports urinary urgency and Denies vaginal discharge Musculoskeletal Denies abnormal gait and Denies back pain Integumentary/Breasts Denies rash Neurologic Denies abnormal gait, Denies syncope and Reports headache(s) Endocrine Reports fatigue and Denies palpitations PFSH Medical History Diabetes mellitus (Chronic) SVT (supraventricular tachycardia) (Chronic) Syncope (Chronic) Breast Cancer GERD HTN Hypothyroidism Lymphoma Renal Artery stenosis Rotator Cuff Injury Social History Smoking/Tobacco Use Status: Never alcohol intake: never substance use type: does not use Surgical History Excision of neck mass Nail removal (toe) Partial mastectomy with sentinal node Rotator Cuff Repair Female Reproductive History Menstrual Menopause type: natural Exam Const General: cooperative, comfortable, no acute distress, well developed, well groomed, not anxious, diaphoretic, ill appearing and No well hydrated Nutritional Appearance: well nourished and overweight Orientation: alert and awake HENMT Head: normal to inspection, normocephalic and atraumatic Ears: hearing grossly normal bilaterally and external ears normal Mouth: mucous membranes dry (mucous membranes dry) Teeth and gingiva: dentition normal Throat: posterior oropharynx normal Neck Neck: normal visual inspection, full ROM, no lymphadenopathy and no meningeal signs Resp Effort & Inspection: normal respiratory effort, able to speak in complete sentences and no respiratory distress Auscultation: clear to auscultation bilaterally, no crackles, no rales, no rhonchi and no wheezes Cardio Rate: tachycardic Rhythm: regular rhythm Heart Sounds: S1 normal and S2 normal GI Inspection: normal to inspection, abdominal wall ecchymosis (patient has a 3cm circular area of ecchymosis over the right side of the abdomen. No pain with palpation. Appears to be in later stage of healing with yellowing of the skin. ) , no edema, non-distended and no incisions Palpation: soft, no hepatosplenomegaly, no aortic enlargement, not firm, no guarding, no masses, not rigid and nontender Auscultation: normal bowel sounds Back/Spine/Pelvis Back: no CVA tenderness, No back tenderness and other (no rash noted) Skin General skin exam: no rashes or lesions noted Neuro General: alert, awake and oriented x3 Cranial Nerves: CN's II-XI intact bilaterally Cognition: normal cognition Speech: abnormal speech (Patient is having difficulty with expressing thoughts, appears slightly confused and appears frustrated with this difficulty) Gait: gait assisted (brought in via wheelchair. Unstead with stand and pivot per nursing report) Extrem General: normal to inspection, no pedal edema and no calf tenderness Psych Appearance: grossly normal and well kempt Mental Status: mental status grossly normal Speech and Movement: delayed speech Mood: congruent mood Affect: normal affect Attitude: cooperative Course Vital Signs Temperature 38.1 C H 05/11/18 21:09 Pulse 111 H 05/11/18 21:09 Respiratory Rate 26 H 05/11/18 21:09 Blood Pressure 154/64 H 05/11/18 21:09 Pulse Oximetry 93 L 05/11/18 21:09 Temperature 38.1 C H 05/11/18 21:09 Pulse 97 H 05/11/18 22:01 Respiratory Rate 21 05/11/18 22:01 Blood Pressure 170/69 H 05/11/18 22:01 Pulse Oximetry 90 L 05/11/18 21:50
[2018-05-11] MEDS: Normal Saline Flush 10 ML SYR IVP (22:38)
[2018-05-11] MEDS: Acetaminophen 500 MG TAB 1000 MG PO (22:38)
--- NOTE | 2018-05-11 22:40 | DI.VRAD_ITS ---
EXAM: CT Head Without Intravenous Contrast CLINICAL HISTORY: 73 years old, female; Pain and signs and symptoms; Altered mental status/memory loss; Confusion or disorientation; Headache; Headache not specified; Patient HX: Headache, confusion TECHNIQUE: Axial computed tomography images of the head/brain without intravenous contrast. Coronal and sagittal reformatted images were created and reviewed. COMPARISON: MRI - BRAIN W/WO CONTRAST 10/23/2015 4:00 PM FINDINGS: Brain: Unremarkable. No hemorrhage. No significant white matter disease. No edema. Ventricles: Unremarkable. No ventriculomegaly. Bones/joints: Unremarkable. No acute fracture. Soft tissues: Unremarkable. Sinuses: Unremarkable as visualized. No acute sinusitis. Mastoid air cells: Unremarkable as visualized. No mastoid effusion. IMPRESSION: No acute focal intracranial lesions. Dictated and Authenticated by: Herber Ramirez MD. Ordering:JET ALMAZAN MD
--- NOTE | 2018-05-11 22:40 | DI.VRAD_ITS ---
EXAM: XR Chest, 2 Views CLINICAL HISTORY: 73 years old, female; Signs and symptoms; Fever TECHNIQUE: Frontal and lateral views of the chest. COMPARISON: CR - CHEST 2 VIEWS PA,LAT 11/08/2014 7:32 AM FINDINGS: Lungs: Unremarkable. No consolidation. Pleural space: Unremarkable. No pneumothorax. Heart: Unremarkable. No cardiomegaly. Mediastinum: Unremarkable. Bones/joints: Degenerative changes within thoracic spine. Vasculature: Atherosclerotic aortic arch. IMPRESSION: No infiltrates or effusions. Dictated and Authenticated by: Herber Ramirez MD. Ordering:JET ALMAZAN MD
[2018-05-11] MEDS: Normal Saline 1,000 ML 1000 ML IV (22:53)
[2018-05-11 22:55] LABS: Bilirubin Negative (Negative); Blood Trace-intact (Negative); Clarity Clear; Glucose Negative (Negative); Ketones Negative (Negative); Leukocyte Esterase Trace (Negative); Nitrite Negative (Negative); Specific Gravity 1.015 (1.005-1.025); Urobilinogen 0.2 EU/dL (Up TO 0.2); pH 5.5 (5-8)
[2018-05-11 23:08] LABS: Lactate-non-spesis 2.9 mmol/L (0.6-1.4)
[2018-05-11 23:21] LABS: Abs Immature Grans 0.04 k/cumm (0.0-0.09); Absolute Basophil Count 0.03 k/cumm (0.0-0.2); Absolute Eosinophil Count 0.03 k/cumm (0.0-0.7); Absolute Lymphocyte Count 1.66 k/cumm (1.2-3.4); Absolute Monocyte Count 1.75 k/cumm (0.11-0.7); Basophils % 0.2; Eosinophils % 0.2; HCT 40.9 % (36.0-46.0); HGB 14.1 g/dL (12.0-15.5); Immature Grans % 0.3; Lymphocytes % 10.6; Mean Corp. HGB Concentration 34.5 g/dL (32.0-36.0); Mean Corpuscular Hemoglobin 31.5 pg (27.0-33.0); Mean Corpuscular Volume 91.5 fL (80-95); Mean Platelet Volume 11.4 fL (8.0-11.0); Monocytes % 11.2; Neutrophils % 77.5; Platelet Count 125 x1000/uL (130-400); RBC 4.47 m/cumm (4.00-5.20); RBC Distribution Width 14.2 % (11.7-14.6); White Blood Cell Count 15.66 k/cumm (4.4-10.8)
[2018-05-11 23:22] LABS: Absolute Neutrophil Count 12.14 k/cumm (1.2-6.7)
[2018-05-11 23:24] LABS: Bacteria Moderate HPF (Negative); C & S Indicated? Yes; Casts Negative LPF (Negative); Crystals Negative HPF (Negative); Epithelial Cells Negative HPF (Negative); Mucus Negative (Negative); Other Cells Negative (Negative); RBC Negative (0-2)
[2018-05-11 23:38] LABS: ALT 67 U/L (12-78); AST 64 U/L (15-37); Albumin 3.4 g/dL (3.4-5.0); Alkaline Phosphatase 85 U/L (46-116); Anion Gap 11.3 mmol/L (3-11); BUN 30 mg/dL (7-18); Bilirubin, Total 0.9 mg/dL (0.2-1.0); CO2 24.7 mmol/L (21.0-32.0); CREATININE 1.52 mg/dL (0.55-1.02); Calcium 9.4 mg/dL (8.5-10.1); Chloride 94 mmol/L (98-107); Estimated GFR 33.34 (mL/min/1.73m2); Glucose 234 mg/dL (70-100); Potassium 3.7 mmol/L (3.5-5.1); Sodium 130 mmol/L (136-145); Total Protein 7.2 g/dL (6.4-8.2)
[2018-05-11 23:44] LABS: Troponin I < 0.02 ng/mL (0.00-0.06)
[2018-05-12] VITALS (50 sets, daily range): BP systolic 130–166; BP diastolic 39–123; PULSE 77–113; RESP 16–32; TEMP 36–38.4; O2SAT 82–94
[2018-05-12] MEDS: Normal Saline 1,000 ML 1000 ML IV (00:38)
[2018-05-12] MEDS: Normal Saline 1,000 ML 200 ML IV (02:21)
[2018-05-12] MEDS: MEROPENEM 1 GM in Normal Saline 100 ML IVPB ×2 (03:07→14:24)
[2018-05-12] MEDS: VANCOMYCIN 1,500 MG in Normal Saline 500 ML 333.333 MG IVPB (05:12)
[2018-05-12 06:29] LABS: Lactate-non-spesis 2.4 mmol/L (0.6-1.4)
[2018-05-12] MEDS: Acetaminophen 325 MG TAB PO ×2 (06:46→14:23)
[2018-05-12] MEDS: Levothyroxine 150 MCG TAB PO (06:46)
[2018-05-12] MEDS: Omeprazole 20 MG CAPCR 40 MG PO (06:46)
[2018-05-12] MEDS: Heparin 5,000 UNITS/ML VIAL 5000 UNITS SC ×3 (07:12→23:46)
[2018-05-12 07:14] LABS: Abs Immature Grans 0.03 k/cumm (0.0-0.09); Absolute Basophil Count 0.01 k/cumm (0.0-0.2); Absolute Lymphocyte Count 1.13 k/cumm (1.2-3.4); Absolute Monocyte Count 1.33 k/cumm (0.11-0.7); Basophils % 0.1; Eosinophils % 0.2; HCT 37.3 % (36.0-46.0); HGB 12.7 g/dL (12.0-15.5); Immature Grans % 0.2; Lymphocytes % 9.4; Mean Corpuscular Hemoglobin 31.7 pg (27.0-33.0); Mean Platelet Volume 10.7 fL (8.0-11.0); Monocytes % 11.1; Platelet Count 110 x1000/uL (130-400); RBC 4.01 m/cumm (4.00-5.20); White Blood Cell Count 12.01 k/cumm (4.4-10.8)
[2018-05-12 07:15] LABS: Absolute Eosinophil Count 0.02 k/cumm (0.0-0.7); Absolute Neutrophil Count 9.49 k/cumm (1.2-6.7)
[2018-05-12 07:27] LABS: ALT 53 U/L (12-78); AST 48 U/L (15-37); Albumin 2.8 g/dL (3.4-5.0); Alkaline Phosphatase 72 U/L (46-116); Anion Gap 10.9 mmol/L (3-11); BUN 24 mg/dL (7-18); Bilirubin, Total 0.6 mg/dL (0.2-1.0); CO2 24.1 mmol/L (21.0-32.0); CREATININE 1.32 mg/dL (0.55-1.02); Chloride 100 mmol/L (98-107); Estimated GFR 39.23 (mL/min/1.73m2); Glucose 214 mg/dL (70-100); Magnesium 1.8 mg/dL (1.8-2.4); Sodium 135 mmol/L (136-145)
[2018-05-12] MEDS: POTASSIUM CHLORIDE/0.9% NACL 1,000 ML 150 MEQ IV (08:12)
[2018-05-12] MEDS: Magnesium Oxide 400 MG TAB PO ×2 (08:12→09:07)
[2018-05-12] MEDS: Insulin Aspart 300 UNITS/3 ML PEN SC ×3 (08:12→17:27)
[2018-05-12] MEDS: Escitalopram 20 MG TAB PO (08:12)
--- NOTE | 2018-05-12 08:40 | W.PM.HP.N ---
Date of service: 05/12/18 Time of Service: 08:40 Assessment and Plan (1) Sepsis: Current visit: Yes Status: Acute Patient with evidence of fever, tachycardia, and a white blood count greater than 12,000, with a suspected urinary source as well as altered mental status and elevation in lactate. Meets criteria for sepsis. Mrs. Vega has a prior history of multiple UTIs, but her current urinalysis is not overwhelming with only trace LE and 3-5 white blood cells. She also denies any urinary symptoms. However her chest x-ray was interpreted as negative and she has no pulmonary symptoms, and she lacks any GI symptoms including diarrhea. There is also no evidence of obvious infectious skin lesions. Will start patient on treatment for UTI, and secondary to her septic picture will require broad-spectrum antibiotics with coverage for potential ESBL and MRSA species. Current regimen will be renally dosed imipenem as well as vancomycin. Also check renal imaging with an ultrasound. Blood cultures have been drawn and urine cultures are pending at this time. Continue aggressive IV fluid resuscitation, and monitor vitals including blood pressure and temperature carefully. Lactate has improved this morning but not yet normalized, and will be repeated later this afternoon. Given recent right upper quadrant pain and abnormal CT findings of the gallbladder will repeat a right upper quadrant ultrasound as well to rule out potential gallbladder etiology for the patient's fevers. (2) CICI (acute kidney injury): Current visit: Yes Status: Acute Evidence of an acutely elevated creatinine along with an elevated BUN, hyponatremia, and hypochloremia. Acute kidney injury in the setting of febrile illness, likely represents prerenal etiology. Creatinine is improved from 1.52-1.32 this morning, with a baseline of 1.1. Continue IV fluids and monitor creatinine and renal function carefully, renally dose medications, and avoid nephrotoxins. (3) Diabetes mellitus: Current visit: Yes Status: Chronic Continue Victoza, and attempt to reach pharmacy today regarding appropriate home dosing. Maintain patient on sliding scale coverage and ADA diet. (4) SVT (supraventricular tachycardia): Current visit: Yes Status: Chronic Continue home regimen of diltiazem, and monitor heart rate carefully in the setting of acute sepsis. (5) History of syncope: Current visit: Yes Status: Chronic Noted. (6) Hypothyroidism: Current visit: Yes Status: Chronic Continue replacement therapy. (7) Renal artery stenosis: Current visit: Yes Status: Chronic (8) Hypertension: Current visit: Yes Status: Chronic Continue long-acting diltiazem, but hold hydrochlorothiazide in setting of acute kidney injury. Monitor blood pressure carefully. (9) Dyslipidemia: Current visit: Yes Status: Chronic (10) GERD (gastroesophageal reflux disease): Current visit: Yes Status: Chronic Continue PPI therapy. 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 This was discussed with the patient and her spouse, and it appears that they have a follow-up scheduled with GI at [facility]. (12) PVD (peripheral vascular disease): Current visit: Yes Status: Chronic Historical entry of peripheral vascular disease, with a note for right lower extremity stent. Patient does not appear to be on statin or antiplatelet therapy at this time. (13) TERRY (obstructive sleep apnea): Current visit: Yes Status: Chronic Noted TERRY by history, reportedly on BiPAP at home. We will continue BiPAP therapy while the patient is hospitalized. (14) DVT prophylaxis: Current visit: Yes Status: Acute Subcutaneous heparin given acute kidney injury. History of Present Illness Chief Complaint: Fever, Altered Mental Status Narrative: A pleasant 73-year-old woman with past medical history significant for diabetes, noncardiogenic syncope, SVTs, peripheral vascular disease, and nonalcoholic cirrhosis of the liver presents to [facility] emergency department with complaints of fever and altered mental status. Mrs. Vega was recently admitted to [facility] briefly on May 05 of this year with complaints of right upper quadrant pain. At that time a CT of the abdomen showed potential dilation of the gallbladder, and her AST was noted to be elevated as well. She also had bruising overlying the right upper quadrant of the abdomen as well as the right flank region. However, following admission and ultrasound of the abdomen failed to show any abnormalities of the gallbladder. She was noted to have appearance of cirrhosis of the liver by both CT scan as well as ultrasound. The patient's pain was noted to be not postprandial, and occurring with movement and breathing. She was discharged from the hospital at that time without any significant sequelae. The patient remained in her usual state of health until the day of admission when she noted subjective fevers and diaphoresis, and her recognized that she was not acting like her normal self. At that time the decision was made to bring the patient to the hospital for further evaluation. Workup in the ED showed evidence of leukocytosis, fever, elevated lactate, and a mildly abnormal urinalysis. Her AST was also elevated, but chronically so and unchanged. She was also noted to have an acute kidney injury. Her chest x-ray was negative for any infiltrates or effusions. The patient was also noted to be confused, with some degree of improvement following fluid resuscitation. Further questioning revealed that the patient had a lack of dysuria or urinary symptoms, no further right upper quadrant or flank pain, no GI symptoms including diarrhea, no cough or dyspnea, and no skin lesions. Given her overall condition a diagnosis of sepsis was made and the patient was referred for admission for further evaluation and treatment. Review of Systems Review of Systems All systems reviewed & are unremarkable except as noted in HPI and below PFSH Medical History Diabetes mellitus (Chronic) SVT (supraventricular tachycardia) (Chronic) Syncope (Chronic) Breast Cancer GERD HTN Hypothyroidism Lymphoma Renal Artery stenosis Rotator Cuff Injury Social History Smoking/Tobacco Use Status: Never alcohol intake: never substance use type: does not use additional social history: with 4 children. 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 Denies alcohol or tobacco use. Surgical History Excision of neck mass Nail removal (toe) Partial mastectomy with sentinal node Rotator Cuff Repair Female Reproductive History Menstrual Menopause type: natural Meds Home Medications Medication Instructions Recorded Confirmed Type levothyroxine 150 mcg PO DAILY 09/23/13 05/12/18 History magnesium oxide 400 mg PO DAILY 09/23/13 05/12/18 History omeprazole 40 mg PO DAILY 09/23/13 05/12/18 History anastrozole 1 mg PO DAILY tab-cap 02/29/16 05/12/18 History diltiazem HCl [Cartia XT] 300 mg PO DAILY tab-cap 02/29/16 05/12/18 History escitalopram oxalate 20 mg PO DAILY tab-cap 02/29/16 05/12/18 History hydrochlorothiazide 25 mg PO DAILY tab-cap 02/29/16 05/12/18 History ibuprofen-diphenhydramine cit 1 ea PO PRN 02/29/16 05/12/18 History [Advil PM] liraglutide 05/05/18 History Allergies Allergy/AdvReac Type Severity Reaction Status Date / Time glipizide AdvReac Intermediate body aches Unverified 05/11/18 21:12 Bgwdgly-Myf-Bdc Reductase AdvReac Intermediate Unverified 05/11/18 21:12 Inhibitor Exam Narrative Exam Narrative: General: Patient appears comfortable, Awake and alert, oriented but with mild difficulty remembering events from prior to admission, NAD Neck: Supple CV: Regular, tachycardic, S1S2, No obvious rubs, murmurs, or gallops. Pulmonary: Clear to auscultation bilaterally, no crackles, wheezing, or rhonchi Abdomen: + Bowel Sounds, soft, nontender, nondistended Vascular: Mild equal b/l non-pitting lower extremity edema Neurologic: CN II-XII grossly intact. No focal deficits. Psych: Normal mood and affect. Results Imaging Chest x-ray: report reviewed Imaging Studies: EXAM: CT Head Without Intravenous Contrast CLINICAL HISTORY: 73 years old, female; Pain and signs and symptoms; Altered mental status/memory loss; Confusion or disorientation; Headache; Headache not specified; Patient HX: Headache, confusion TECHNIQUE: Axial computed tomography images of the head/brain without intravenous contrast. Coronal and sagittal reformatted images were created and reviewed. COMPARISON: MRI - BRAIN W/WO CONTRAST 10/23/2015 4:00 PM FINDINGS: Brain: Unremarkable. No hemorrhage. No significant white matter disease. No edema. Ventricles: Unremarkable. No ventriculomegaly. Bones/joints: Unremarkable. No acute fracture. Soft tissues: Unremarkable. Sinuses: Unremarkable as visualized. No acute sinusitis. Mastoid air cells: Unremarkable as visualized. No mastoid effusion. IMPRESSION: No acute focal intracranial lesions. EXAM: XR Chest, 2 Views CLINICAL HISTORY: 73 years old, female; Signs and symptoms; Fever TECHNIQUE: Frontal and lateral views of the chest. COMPARISON: CR - CHEST 2 VIEWS PA,LAT 11/08/2014 7:32 AM FINDINGS: Lungs: Unremarkable. No consolidation. Pleural space: Unremarkable. No pneumothorax. Heart: Unremarkable. No cardiomegaly. Mediastinum: Unremarkable. Bones/joints: Degenerative changes within thoracic spine. Vasculature: Atherosclerotic aortic arch. IMPRESSION: No infiltrates or effusions. Labs : 05/12/18 06:20 05/12/18 06:20 Laboratory Results - last 24 hr 05/11/18 05/11/18 05/11/18 22:15 22:45 22:45 WBC RBC Hgb Hct MCV MCH MCHC RDW Plt Count MPV Immature Gran % Neutrophils % Lymphocytes % Monocytes % Eosinophils % Basophils % Absolute Neutrophils Absolute Lymphocytes Absolute Monocytes Absolute Eosinophils Absolute Basophils Sodium 130 L Potassium 3.7 Chloride 94 L Carbon Dioxide 24.7 Anion Gap 11.3 H BUN 30 H Creatinine 1.52 H Estimated GFR/1.73 m2 33.34 Glucose 234 H Lactate 2.9 H Calcium 9.4 Magnesium 2.0 Total Bilirubin 0.9 AST 64 H ALT 67 Alkaline Phosphatase 85 Troponin I < 0.02 Total Protein 7.2 Albumin 3.4 Urine Color Yellow Urine Clarity Clear Urine pH 5.5 Ur Specific Zaleski 1.015 Urine Protein 30 H Urine Ketones Negative Urine Blood Trace-intact H Urine Nitrite Negative Urine Bilirubin Negative Urine Urobilinogen 0.2 Ur Leukocyte Esterase Trace H Urine RBC Negative Urine WBC 3-5 Ur Epithelial Cells Negative Urine Crystals Negative Urine Bacteria Moderate Urine Casts Negative Urine Mucus Negative Urine Other Negative Ur Culture Indicated? Yes Urine Glucose Negative 05/11/18 05/12/18 05/12/18 22:45 06:20 06:20 WBC 15.66 H 12.01 H RBC 4.47 4.01 Hgb 14.1 12.7 Hct 40.9 37.3 MCV 91.5 93.0 MCH 31.5 31.7 MCHC 34.5 34.0 RDW 14.2 14.0 Plt Count 125 L 110 L MPV 11.4 H 10.7 Immature Gran % 0.3 0.2 Neutrophils % 77.5 79.0 Lymphocytes % 10.6 9.4 Monocytes % 11.2 11.1 Eosinophils % 0.2 0.2 Basophils % 0.2 0.1 Absolute Neutrophils 12.14 H 9.49 H Absolute Lymphocytes 1.66 1.13 L Absolute Monocytes 1.75 H 1.33 H Absolute Eosinophils 0.03 0.02 Absolute Basophils 0.03 0.01 Sodium 135 L Potassium 3.0 L Chloride 100 Carbon Dioxide 24.1 Anion Gap 10.9 BUN 24 H Creatinine 1.32 H Estimated GFR/1.73 m2 39.23 Glucose 214 H Lactate Calcium 8.0 L Magnesium 1.8 Total Bilirubin 0.6 AST 48 H ALT 53 Alkaline Phosphatase 72 Troponin I Total Protein 6.0 L Albumin 2.8 L Urine Color Urine Clarity Urine pH Ur Specific Zaleski Urine Protein Urine Ketones Urine Blood Urine Nitrite Urine Bilirubin Urine Urobilinogen Ur Leukocyte Esterase Urine RBC Urine WBC Ur Epithelial Cells Urine Crystals Urine Bacteria Urine Casts Urine Mucus Urine Other Ur Culture Indicated? Urine Glucose 05/12/18 06:20 WBC RBC Hgb Hct MCV MCH MCHC RDW Plt Count MPV Immature Gran % Neutrophils % Lymphocytes % Monocytes % Eosinophils % Basophils % Absolute Neutrophils Absolute Lymphocytes Absolute Monocytes Absolute Eosinophils Absolute Basophils Sodium Potassium Chloride Carbon Dioxide Anion Gap BUN Creatinine Estimated GFR/1.73 m2 Glucose Lactate 2.4 H Calcium Magnesium Total Bilirubin AST ALT Alkaline Phosphatase Troponin I Total Protein Albumin Urine Color Urine Clarity Urine pH Ur Specific Zaleski Urine Protein Urine Ketones Urine Blood Urine Nitrite Urine Bilirubin Urine Urobilinogen Ur Leukocyte Esterase Urine RBC Urine WBC Ur Epithelial Cells Urine Crystals Urine Bacteria Urine Casts Urine Mucus Urine Other Ur Culture Indicated? Urine Glucose
[2018-05-12] MEDS: POTASSIUM CHLORIDE 20 MEQ/100 ML BAG 50 MEQ IVPB (09:08)
[2018-05-12] MEDS: Potassium Chloride 20 MEQ TABCR 40 MEQ PO (09:08)
--- NOTE | 2018-05-12 10:15 | PDOC.CMIN ---
- If Service Date Differs Date of service: 05/12/18 Time of Service: 10:15 Care Management Initial Assess REASON FOR HOSPITALIZATION:: Sepsis. PAST MEDICAL HISTORY/PAST SURGICAL HISTORY:: Breast cancer, diabetes, GERD, hypertension, hypothyroidism, lymphoma, renal artery stenosis, SVT. Surgical hx: excision of neck mass, partial mastectomy with sentinal node, rotator cuff repair. PREVIOUS FUNCTIONAL STATUS/SOCIAL/FAMILY SUPPORTS:: angelina resides in her own home in [place] with her , Andi. She has four adult children, two of whom reside locally. Silvia worked for years at [employer] in various capacities and retired five years ago. She reports that she has a great support system with her and children and has no concerns about returning home when medically ready. She is independent with her ADLs and transportation, however reports that she rarely drives at night unless necessary. ADVANCE DIRECTIVES:: None on file at [employer]. Has patient been provided with information about the portal?: Yes Did the patient sign up for the portal?: No CODE STATUS:: Full Code INSURANCE COVERAGE / FINANCIAL ISSUES:: Aetna, Medicare. CURRENT HOME/COMMUNITY SERVICES/EQUIPMENT:: No current home or community services. PRIMARY CARE PHYSICIAN:: Jena Mitchell. POTENTIAL DISCHARGE NEEDS:: Follow up appointment with PCP. PATIENT/FAMILY EDUCATION NEEDS:: Discharge education, any limitations and follow up plan of care. Ask Me Three discussion. ANTICIPATED BARRIERS TO DISCHARGE:: No anticipated barriers to discharge. TRANSPORTATION:: Silvia will transport via private vehicle with , Andi. PLAN:: Silvia will discharge home when medically ready per MD. Anticipate pt will discharge with no services. Silvia will follow up with her PCP and plan of care. CM will continue to provide support to patient, family and care team regarding discharge planning and disposition. Readmission - Within the Past 30 Days Yes or No: Y - Date of First Admission Date of 1st Admission: 05/05/18 - Date of this Admission Date of Admission: 05/12/18 This admission was: Through ED - Office Visit Since 1st Admission Have you seen your PCP in the office since discharge?: No Had an appointment Been Scheduled?: Yes Describe barriers for scheduling or getting an appointment: Pt reports that she did not follow up with her PCP due to her medications being messed up. - Speicalist Appointments Have you seen any other specialist since your 1st Admission?: No - I. Interview patient and/or Family Difficulty reaching your doctor or getting an office appt?: No Have you had trouble purchasing/ or taking medication?: Yes Describe barriers fpr purchasing or taking medication: Pt is struggling with costs of victoza. How do you take your medications and set up your pills?: Independently. Have you had trouble with getting meals at home?: No Did you feel ready for discharge when you left the last time: Yes Were services received that you thought were set up on disch: No What services were received?: No services at discharge. Referral to [facility] was made at last admission and pt has an appointment with them on 05/18. If patient did not receive services, were there orders at: No Did you call your physician beore you came to the ED?: No Did your physician tell you to come in?: No - If the patient had a VNA ordered Did the patient have a VNA order?: No - ED visits How many ED visits in the past 12 months: 2
--- NOTE | 2018-05-12 10:20 | INITIAL_ITS ---
- If Service Date Differs Date of service: 05/12/18 Time of Service: 10:15 Care Management Initial Assess REASON FOR HOSPITALIZATION:: Sepsis. PAST MEDICAL HISTORY/PAST SURGICAL HISTORY:: Breast cancer, diabetes, GERD, hypertension, hypothyroidism, lymphoma, renal artery stenosis, SVT. Surgical hx : excision of neck mass, partial mastectomy with sentinal node, rotator cuff repair. PREVIOUS FUNCTIONAL STATUS/SOCIAL/FAMILY SUPPORTS:: angelina resides in her own home in [place] with her , Andi. She has four adult children, two of whom reside locally. Silvia worked for years at [employer] in various capacities and retired five years ago. She reports that she has a great support system with her and children and has no concerns about returning home when medically ready. She is independent with her ADLs and transportation, however reports that she rarely drives at night unless necessary. ADVANCE DIRECTIVES:: None on file at [facility]. Has patient been provided with information about the portal?: Yes Did the patient sign up for the portal?: No CODE STATUS:: Full Code INSURANCE COVERAGE / FINANCIAL ISSUES:: Aetna, Medicare. CURRENT HOME/COMMUNITY SERVICES/EQUIPMENT:: No current home or community services. PRIMARY CARE PHYSICIAN:: Jena Mitchell. POTENTIAL DISCHARGE NEEDS:: Follow up appointment with PCP. PATIENT/FAMILY EDUCATION NEEDS:: Discharge education, any limitations and follow up plan of care. Ask Me Three discussion. ANTICIPATED BARRIERS TO DISCHARGE:: No anticipated barriers to discharge. TRANSPORTATION:: Silvia will transport via private vehicle with , Andi. PLAN:: Silvia will discharge home when medically ready per MD. Anticipate pt will discharge with no services. Silvia will follow up with her PCP and plan of care. CM will continue to provide support to patient, family and care team regarding discharge planning and disposition. Readmission - Within the Past 30 Days Yes or No: Y - Date of First Admission Date of 1st Admission: 05/05/18 - Date of this Admission Date of Admission: 05/12/18 This admission was: Through ED - Office Visit Since 1st Admission Have you seen your PCP in the office since discharge?: No Had an appointment Been Scheduled?: Yes Describe barriers for scheduling or getting an appointment: Pt reports that she did not follow up with her PCP due to her medications being messed up. - Speicalist Appointments Have you seen any other specialist since your 1st Admission?: No - I. Interview patient and/or Family Difficulty reaching your doctor or getting an office appt?: No Have you had trouble purchasing/ or taking medication?: Yes Describe barriers fpr purchasing or taking medication: Pt is struggling with costs of victoza. How do you take your medications and set up your pills?: Independently. Have you had trouble with getting meals at home?: No Did you feel ready for discharge when you left the last time: Yes Were services received that you thought were set up on disch: No What services were received?: No services at discharge. Referral to [facility] was made at last admission and pt has an appointment with them on 05/18. If patient did not receive services, were there orders at: No Did you call your physician beore you came to the ED?: No Did your physician tell you to come in?: No - If the patient had a VNA ordered Did the patient have a VNA order?: No - ED visits How many ED visits in the past 12 months: 2
--- NOTE | 2018-05-12 10:22 | DI.US_ITS ---
SYMPTOMS/DIAGNOSIS: SEPSIS ABDOMINAL ULTRASOUND: The aorta and vena cava are normal. The liver is enlarged and echogenic with a nodular surface raising the possibility of cirrhosis. There is no evidence of biliary dilatation. The gallbladder is intact. There is no evidence of cholelithiasis or biliary dilatation. The pancreas is unremarkable. The spleen is enlarged with a maximal diameter of 14 cm. The kidneys are unremarkable. There is no evidence of free fluid. SUMMARY: Hepatosplenomegaly is demonstrated and there is an apparent nodular fatty liver. The findings unchanged when compared with the previous study of 05/05/18. RENAL ULTRASOUND: The right kidney measures 12.9 x 3.6 x 6.7 cm. The left kidney 11.2 x 5.8 x 4.1 cm. There is no evidence of hydronephrosis or nephrolithiasis. The prevoid bladder contains 174 cc's. The postvoid bladder contains 0. The ureteral jets were not visualized. The bladder wall thickness is 2 mm. SUMMARY: No tract pathology is demonstrated. As noted above there is hepatosplenomegaly and a fatty nodular liver is demonstrated, unchanged when compared with the prior exam.
[2018-05-12] MEDS: Losartan 50 MG TAB 25 MG PO (11:56)
--- NOTE | 2018-05-12 12:08 | PHARADMIT ---
Addendum entered by Keiry Alcaraz 05/14/18 11:58: Pharmacy Note Subjective pt septic with bactermeia and UTI Objective no fevers, bp ok, FS 145 Assessment ceftriaxone IV day 2, per MD note:once her bacteremia is cleared she can be switched to oral antibiotics and treated for 14 day course of antibiotics.HCTZ juan med still on hold Plan watch for micro results and switch of IV abx to PO, follow FS Original Note: Addendum entered by Angie Pérez 05/13/18 16:29: Pharmacy Note Subjective Objective VS-okay weight-101.9kg (up) BG-231 Assessment vanco and meropenem discontinued, ceftriaxone ordered blood and urine cultures grew E.coli repeat blood cultures pending Plan continue to watch V, labs, blood cultures and for med changes Original Note: Admission Pharmacy Clinical Review Sepsis Code Status DNR/DNI Current Weight 95.8 kg Renally Cleared and Narrow Therapeutic Index Meds Crcl ~40.6 mL/min using adjusted body weight current meds okay QTc Value / Action Taken BP Control, Fever BP 130/67 Tmax 38.2 Electrolytes reviewed Na 135 K+3.0 DVT Prophylaxis heparin Opiate Usage / Scheduled Bowel Regimen Ordered no/prn Plt/SCr for Heparin / Enoxaparin plt 110 SCr 1.32 INR for Warfarin n/a H/H stable, WBC/Bands h/h 12.7/37.3 wbc 12.01 Antibiotic appropriateness meropenem and vanco Cultures and Sensitivities urine culture: gram- vivi, blood culture: 1 pending other grew gram- rods Surgical ABX d/c within 24 hr n/a DM control / Insulin Dosing Bg 214 sliding scale aspart Heart Failure (Check EF%) (NIRMALA's, B-Block, Diuretics) diltiazem, losartan, HCTZ(home med) IV to PO Switch n/a Home Meds Reviewed -escitalopram may enhance the antiplatelet effect of ibuprofen -omeprazole may increase the serum concentration of escitalopram (increased risk of adverse effects/toxicity) -separate admin of levothyroxine and magnesium oxide Home Meds Not Ordered hydrochlorothiazide, advil PM (PRN) Comments pts own victoza (liraglutide) ordered but has not been checked yet by pharmacy
[2018-05-12 12:47] LABS: Lactate-non-spesis 3.4 mmol/L (0.6-1.4)
[2018-05-12 13:06] LABS: Anion Gap 8.3 mmol/L (3-11); BUN 24 mg/dL (7-18); CO2 23.7 mmol/L (21.0-32.0); Calcium 8.3 mg/dL (8.5-10.1); Chloride 101 mmol/L (98-107); Estimated GFR 33.85 (mL/min/1.73m2); Glucose 334 mg/dL (70-100); Potassium 4.8 mmol/L (3.5-5.1); Sodium 133 mmol/L (136-145)
[2018-05-12 15:34] LABS: Lactate-non-spesis 2.1 mmol/L (0.6-1.4)
--- NOTE | 2018-05-12 16:07 | RESPIRATORY ---
I spoke with patient about her CPAP. She is having her own unit brought in this evening. She is aware that, if needed, we do have machines here she could use.
[2018-05-12] MEDS: Lactated Ringers 1,000 ML 150 ML IV ×2 (17:26→23:46)
[2018-05-12] MEDS: VANCOMYCIN 1,000 MG in Normal Saline 250 ML 166.666 MG IV (23:46)
[2018-05-13] VITALS (58 sets, daily range): BP systolic 121–142; BP diastolic 47–56; PULSE 66–93; RESP 13–29; TEMP 36–37.5; O2SAT 91–97
[2018-05-13] MEDS: MEROPENEM 1 GM in Normal Saline 100 ML IVPB ×2 (02:34→14:55)
[2018-05-13] MEDS: Omeprazole 20 MG CAPCR 40 MG PO (06:58)
[2018-05-13] MEDS: Heparin 5,000 UNITS/ML VIAL 5000 UNITS SC ×3 (06:58→22:30)
[2018-05-13] MEDS: Levothyroxine 150 MCG TAB PO (06:58)
[2018-05-13] MEDS: Magnesium Oxide 400 MG TAB PO (08:02)
[2018-05-13] MEDS: Acetaminophen 325 MG TAB PO ×3 (08:02→22:35)
[2018-05-13] MEDS: Escitalopram 20 MG TAB PO (08:02)
[2018-05-13] MEDS: Losartan 50 MG TAB 25 MG PO (08:02)
[2018-05-13] MEDS: Lactated Ringers 1,000 ML 150 ML IV (08:03)
[2018-05-13] MEDS: Insulin Aspart 300 UNITS/3 ML PEN SC ×3 (08:08→18:23)
--- NOTE | 2018-05-13 09:19 | PDOC.CMPRO ---
- If Service Date Differs Date of service: 05/13/18 Time of Service: :19 Care Management Progress Note S/O: Silvia is sitting in her recliner in ICU when CM visits this morning. She is engaged in conversation, makes good eye contact and is talkative and cheerful. Silvia's brought her BiPap to the hospital yesterday and she reports that she slept well and is feeling great. She is looking forward to going home when ready per MD. Silvia continues to receive IV fluids and IV antibiotics and is a MS overflow. A: 73 year old female admitted with sepsis. P: Silvia will discharge when medically ready per MD. Anticipate pt will discharge with no services and follow up with her PCP. Silvia will transport via private vehicle with her , Andi. CM will continue to offer support to patient, family and care team regarding discharge planning and disposition.
[2018-05-13 11:15] LABS: Abs Immature Grans 0.02 k/cumm (0.0-0.09); Absolute Basophil Count 0.02 k/cumm (0.0-0.2); Absolute Eosinophil Count 0.22 k/cumm (0.0-0.7); Absolute Monocyte Count 1.26 k/cumm (0.11-0.7); Absolute Neutrophil Count 6.68 k/cumm (1.2-6.7); Basophils % 0.2; Eosinophils % 2.1; HCT 36.4 % (36.0-46.0); Immature Grans % 0.2; Lymphocytes % 21.2; Mean Corpuscular Hemoglobin 31.3 pg (27.0-33.0); Mean Corpuscular Volume 94.8 fL (80-95); Mean Platelet Volume 11.2 fL (8.0-11.0); Monocytes % 12.1; Neutrophils % 64.2; Platelet Count 116 x1000/uL (130-400); RBC 3.84 m/cumm (4.00-5.20); RBC Distribution Width 14.2 % (11.7-14.6)
[2018-05-13 11:30] LABS: Anion Gap 8.6 mmol/L (3-11); BUN 20 mg/dL (7-18); CO2 24.4 mmol/L (21.0-32.0); CREATININE 1.24 mg/dL (0.55-1.02); Chloride 103 mmol/L (98-107); Estimated GFR 42.17 (mL/min/1.73m2); Glucose 231 mg/dL (70-100); Sodium 136 mmol/L (136-145)
[2018-05-13] MEDS: Normal Saline Flush 10 ML SYR IVP (14:34)
--- NOTE | 2018-05-13 15:21 | W.PM.PROGNOT ---
Date of service: 05/13/18 Time of Service: 12:30 Assessment and Plan (1) Sepsis: Current visit: Yes Status: Acute Patient presented to the hospital in sepsis with fever leukocytosis evidence of a UTI and acute kidney injury. She was found to have E. coli bacteremia and E. coli UTI. She has responded to the meropenem. Her urine culture shows pansensitive E. coli to all antibiotics tested. At this point we are going to discontinue her vancomycin and meropenem and step her down to ceftriaxone. We will repeat her blood cultures and once her bacteremia is cleared she can be switched to oral antibiotics and treated for 14 day course of antibiotics. (2) E coli bacteremia: Current visit: Yes Status: Acute As above (3) CICI (acute kidney injury): Current visit: Yes Status: Resolved Her acute renal insufficiency has resolved. Her cramps come down from 1.52 down to 1.24. At this point we can discontinue IV fluids she is taking oral food and fluids quite well. I will recheck her labs in the morning (4) Hypertension: Current visit: Yes Status: Chronic Her home dose of losartan And diltiazem was resumed and her blood pressures have improved. We are still withholding her hydrochlorothiazide. (5) DVT prophylaxis: Current visit: Yes Status: Acute Continue low-dose heparin subcutaneous for DVT prophylaxis Subjective Patient reports: no new complaints and feels better Interval history since last seen: Patient has been afebrile since 2300 hrs. last night. Urine and blood cultures are both growing E. coli. Urine culture shows pansensitive D to all antibiotics tested. I will switch her from meropenem to ceftriaxone and repeat her blood cultures today. If follow blood cultures show clearance of her bacteremia that I will switch her over to oral antibiotics and discharge her home probably on Friday. Exam Const General: cooperative, healthy appearing, no acute distress and well developed Nutritional Appearance: overweight Orientation: alert, awake and oriented x3 Resp Effort & Inspection: normal respiratory effort and able to speak in complete sentences Auscultation: clear to auscultation bilaterally Cardio Jugular venous pressure: no JVD Palpation: normal PMI Rate: regular rate Rhythm: regular rhythm Heart Sounds: S1 normal and normal, physiologic split S2 GI Inspection: normal to inspection Auscultation: normal bowel sounds General: No CVA tenderness Back/Spine/Pelvis Back: no CVA tenderness Psych Appearance: grossly normal and well kempt Mental Status: mental status grossly normal Speech and Movement: speech and movement normal Mood: congruent mood Affect: normal affect Attitude: cooperative Thought Process: normal Thought Content: normal Insight: insight good Judgment: judgment good Objective Objective Clinical Data: Abnormal lab results 05/12/18 05/13/18 05/13/18 Range/Units 15:30 11:10 11:10 RBC 3.84 L (4.00-5.20) m/cumm Plt Count 116 L (130-400) x1000/uL MPV 11.2 H (8.0-11.0) fL Absolute Monocytes 1.26 H (0.11-0.7) k/cumm BUN 20 H (7-18) mg/dL Creatinine 1.24 H (0.55-1.02) mg/dL Glucose 231 H D (70-100) mg/dL Lactate 2.1 H (0.6-1.4) mmol/L Calcium 8.0 L (8.5-10.1) mg/dL Vital Signs Temp 36.4 C L 05/13/18 12:01 Pulse 66 05/13/18 11:44 Resp 24 05/13/18 07:45 BP 121/52 L 05/13/18 11:44 Pulse Ox 91 L 05/13/18 11:44 Intake & Output 05/12/18 05/13/18 05/13/18 23:59 11:59 23:59 Intake Total 6558.0 / 6558.0 887.5 / 887.5 240 / 240 Output Total 2200 / 2200 1675 / 1675 400 / 400 Balance 4358.0 / 4358.0 -787.5 / -787.5 -160 / -160 Weight 101.9 kg Intake: IV 4810.0 / 4810.0 347.5 / 347.5 Oral 1748 / 1748 540 / 540 240 / 240 Output: Urine 2200 / 2200 1675 / 1675 400 / 400 Other: Urine Color Yellow Yellow Yellow Urine Appearance Clear Clear Clear Urine Odor Normal None Comment mixed with stool, approximate amount. mixed with stool. Stool Occult Blood Negative Stool Size Moderate Large Moderate Stool Characteristics Formed Soft Soft Formed Brown Brown Voiding Methods Bedside Commode Bedside Commode Bedside Commode Diaper Laboratory Results WBC 10.40 k/cumm (4.4-10.8) 05/13/18 11:10 RBC 3.84 m/cumm (4.00-5.20) L 05/13/18 11:10 Hgb 12.0 g/dL (12.0-15.5) 05/13/18 11:10 Hct 36.4 % (36.0-46.0) 05/13/18 11:10 MCV 94.8 fL (80-95) 05/13/18 11:10 MCH 31.3 pg (27.0-33.0) 05/13/18 11:10 MCHC 33.0 g/dL (32.0-36.0) 05/13/18 11:10 RDW 14.2 % (11.7-14.6) 05/13/18 11:10 Plt Count 116 x1000/uL (130-400) L 05/13/18 11:10 MPV 11.2 fL (8.0-11.0) H 05/13/18 11:10 Immature Gran % 0.2 05/13/18 11:10 Neutrophils % 64.2 05/13/18 11:10 Lymphocytes % 21.2 05/13/18 11:10 Monocytes % 12.1 05/13/18 11:10 Eosinophils % 2.1 05/13/18 11:10 Basophils % 0.2 05/13/18 11:10 Absolute Neutrophils 6.68 k/cumm (1.2-6.7) 05/13/18 11:10 Absolute Lymphocytes 2.20 k/cumm (1.2-3.4) 05/13/18 11:10 Absolute Monocytes 1.26 k/cumm (0.11-0.7) H 05/13/18 11:10 Absolute Eosinophils 0.22 k/cumm (0.0-0.7) 05/13/18 11:10 Absolute Basophils 0.02 k/cumm (0.0-0.2) 05/13/18 11:10 Sodium 136 mmol/L (136-145) 05/13/18 11:10 Potassium 4.0 mmol/L (3.5-5.1) 05/13/18 11:10 Chloride 103 mmol/L (98-107) 05/13/18 11:10 Carbon Dioxide 24.4 mmol/L (21.0-32.0) 05/13/18 11:10 Anion Gap 8.6 mmol/L (3-11) 05/13/18 11:10 BUN 20 mg/dL (7-18) H 05/13/18 11:10 Creatinine 1.24 mg/dL (0.55-1.02) H 05/13/18 11:10 Estimated GFR/1.73 m2 42.17 (mL/min/1.73m2) 05/13/18 11:10 Glucose 231 mg/dL (70-100) H D 05/13/18 11:10 Lactate 2.1 mmol/L (0.6-1.4) H 05/12/18 15:30 Calcium 8.0 mg/dL (8.5-10.1) L 05/13/18 11:10 Magnesium 1.8 mg/dL (1.8-2.4) 05/12/18 06:20 Total Bilirubin 0.6 mg/dL (0.2-1.0) 05/12/18 06:20 AST 48 U/L (15-37) H 05/12/18 06:20 ALT 53 U/L (12-78) 05/12/18 06:20 Alkaline Phosphatase 72 U/L (46-116) 05/12/18 06:20 Troponin I < 0.02 ng/mL (0.00-0.06) 05/11/18 22:45 Total Protein 6.0 g/dL (6.4-8.2) L 05/12/18 06:20 Albumin 2.8 g/dL (3.4-5.0) L 05/12/18 06:20 Urine Color Yellow (Yellow) 05/11/18 22:15 Urine Clarity Clear 05/11/18 22:15 Urine pH 5.5 (5-8) 05/11/18 22:15 Ur Specific [place] 1.015 (1.005-1.025) 05/11/18 22:15 Urine Protein 30 mg/dL (Negative) H 05/11/18 22:15 Urine Ketones Negative mg/dL (Negative) 05/11/18 22:15 Urine Blood Trace-intact (Negative) H 05/11/18 22:15 Urine Nitrite Negative (Negative) 05/11/18 22:15 Urine Bilirubin Negative (Negative) 05/11/18 22:15 Urine Urobilinogen 0.2 EU/dL (Up TO 0.2) 05/11/18 22:15 Ur Leukocyte Esterase Trace (Negative) H 05/11/18 22:15 Urine RBC Negative (0-2) 05/11/18 22:15 Urine WBC 3-5 HPF (0-5) 05/11/18 22:15 Ur Epithelial Cells Negative HPF (Negative) 05/11/18 22:15 Urine Crystals Negative HPF (Negative) 05/11/18 22:15 Urine Bacteria Moderate HPF (Negative) 05/11/18 22:15 Urine Casts Negative LPF (Negative) 05/11/18 22:15 Urine Mucus Negative (Negative) 05/11/18 22:15 Urine Other Negative (Negative) 05/11/18 22:15 Ur Culture Indicated? Yes 05/11/18 22:15 Urine Glucose Negative mg/dL (Negative) 05/11/18 22:15
--- NOTE | 2018-05-13 15:37 | DM INPTCON_ITS ---
DESCRIPTION/ASSESSMENT: Appreciate diabetes consult for Cherry Vega who is hospitalized with urinary infection. She is known to outpatient diabetes. BMI 37 A1c 7.9 3 months ago. Blood sugars here have recovered from 200s to less than 200 today taking sensitive insulin correction. She is managed with Victoza at home. She is eating 100% of her meals here at about 40grams carb per meal. INTERVENTION: Blood sugars slightly elevated by food but may be better managed with moderate insulin correction, or the addition of 1 unit carbohydrate per 15 grams carbohydrate consumed. PLAN: Will follow blood sugars and visit her prior to discharge.
[2018-05-14 07:00] VITALS: O2SAT 93
[2018-05-14] MEDS: Omeprazole 20 MG CAPCR 40 MG PO (07:08)
[2018-05-14] MEDS: Levothyroxine 150 MCG TAB PO (07:08)
[2018-05-14] MEDS: Heparin 5,000 UNITS/ML VIAL 5000 UNITS SC ×3 (07:08→21:44)
[2018-05-14 07:12] VITALS: BP 141/60; PULSE 73
[2018-05-14 07:12] LABS: Lactate-non-spesis 1.5 mmol/L (0.6-1.4)
[2018-05-14 07:28] VITALS: TEMP 37.3; O2SAT 96
[2018-05-14] MEDS: Insulin Aspart 300 UNITS/3 ML PEN SC ×3 (08:08→17:33)
[2018-05-14] MEDS: Losartan 50 MG TAB 25 MG PO (08:17)
[2018-05-14] MEDS: Magnesium Oxide 400 MG TAB PO (08:17)
[2018-05-14] MEDS: Escitalopram 20 MG TAB PO (08:17)
--- NOTE | 2018-05-14 12:59 | W.PM.PROGNOT ---
Date of service: 05/14/18 Time of Service: 12:59 Assessment and Plan (1) Sepsis: Current visit: Yes Status: Acute Patient presented to the hospital in sepsis with fever leukocytosis evidence of a UTI and acute kidney injury. She was found to have E. coli bacteremia and E. coli UTI. She has responded to the meropenem. Her urine culture shows pansensitive E. coli to all antibiotics tested. Patient has since been switched to Rocephin 2 g IV daily and is doing well. Assuming that her repeat blood cultures from yesterday show no growth she can be switched to an oral cephalosporin and discharged home tomorrow (2) E coli bacteremia: Current visit: Yes Status: Acute As above (3) Hypertension: Current visit: Yes Status: Chronic Her home dose of losartan And diltiazem was resumed and her blood pressures have improved. We are still withholding her hydrochlorothiazide. (4) DVT prophylaxis: Current visit: Yes Status: Acute Continue low-dose heparin subcutaneous for DVT prophylaxis Subjective Patient reports: no new complaints Interval history since last seen: Patient's feeling good. She has no acute complaints. Specifically she denies any dysuria, fever, chills, shortness of breath or chest pain or abdominal pain nor any nausea or vomiting. Her blood cultures grew E. coli as did her urine culture. I am waiting for the repeat blood cultures post antibiotic treatment. She remains on ceftriaxone 2 g IV daily. If her repeat blood cultures from yesterday come back no growth that I will switch her over to an oral antibiotic probably Keflex 500 mg 4 times daily and discharge her home tomorrow morning assuming she has no overnight fevers. She should be treated for a total of 14 days including the 3 days that she is been in here. Exam Const General: cooperative, healthy appearing, comfortable, no acute distress, well developed and well groomed Nutritional Appearance: obese Orientation: alert, awake and oriented x3 Resp Effort & Inspection: normal respiratory effort and able to speak in complete sentences Auscultation: clear to auscultation bilaterally Cardio Jugular venous pressure: no JVD Palpation: normal PMI Rate: regular rate Rhythm: regular rhythm Heart Sounds: S1 normal, S2 normal, normal, physiologic split S2, no gallops, no murmurs and no rubs GI Inspection: normal to inspection Palpation: soft Percussion: normal to percussion Auscultation: normal bowel sounds Extrem General: normal to inspection, full ROM, normal capillary refill and no clubbing, cyanosis or edema Objective Objective Clinical Data: Abnormal lab results 05/14/18 Range/Units 07:07 Lactate 1.5 H (0.6-1.4) mmol/L Vital Signs Temp 37.3 C 05/14/18 07:28 Pulse 73 05/14/18 07:12 Resp 24 05/13/18 07:45 BP 141/60 H 05/14/18 07:12 Pulse Ox 96 05/14/18 07:28 Intake & Output 05/13/18 05/14/18 05/14/18 23:59 11:59 23:59 Intake Total 670 / 670 980 / 980 Output Total 1650 / 1650 1725 / 1725 Balance -980 / -980 -745 / -745 Weight 101 kg Intake: IV 150 / 150 Oral 520 / 520 980 / 980 Output: Urine 1650 / 1650 1725 / 1725 Other: Urine Color Yellow Yellow Urine Appearance Clear Clear Urine Odor Normal None Comment mixed with stool. reported void x 1 in private bathroom. Stool Size Small Stool Characteristics Formed Voiding Methods Bedside Commode Toilet Laboratory Results WBC 10.40 k/cumm (4.4-10.8) 05/13/18 11:10 RBC 3.84 m/cumm (4.00-5.20) L 05/13/18 11:10 Hgb 12.0 g/dL (12.0-15.5) 05/13/18 11:10 Hct 36.4 % (36.0-46.0) 05/13/18 11:10 MCV 94.8 fL (80-95) 05/13/18 11:10 MCH 31.3 pg (27.0-33.0) 05/13/18 11:10 MCHC 33.0 g/dL (32.0-36.0) 05/13/18 11:10 RDW 14.2 % (11.7-14.6) 05/13/18 11:10 Plt Count 116 x1000/uL (130-400) L 05/13/18 11:10 MPV 11.2 fL (8.0-11.0) H 05/13/18 11:10 Immature Gran % 0.2 05/13/18 11:10 Neutrophils % 64.2 05/13/18 11:10 Lymphocytes % 21.2 05/13/18 11:10 Monocytes % 12.1 05/13/18 11:10 Eosinophils % 2.1 05/13/18 11:10 Basophils % 0.2 05/13/18 11:10 Absolute Neutrophils 6.68 k/cumm (1.2-6.7) 05/13/18 11:10 Absolute Lymphocytes 2.20 k/cumm (1.2-3.4) 05/13/18 11:10 Absolute Monocytes 1.26 k/cumm (0.11-0.7) H 05/13/18 11:10 Absolute Eosinophils 0.22 k/cumm (0.0-0.7) 05/13/18 11:10 Absolute Basophils 0.02 k/cumm (0.0-0.2) 05/13/18 11:10 Sodium 136 mmol/L (136-145) 05/13/18 11:10 Potassium 4.0 mmol/L (3.5-5.1) 05/13/18 11:10 Chloride 103 mmol/L (98-107) 05/13/18 11:10 Carbon Dioxide 24.4 mmol/L (21.0-32.0) 05/13/18 11:10 Anion Gap 8.6 mmol/L (3-11) 05/13/18 11:10 BUN 20 mg/dL (7-18) H 05/13/18 11:10 Creatinine 1.24 mg/dL (0.55-1.02) H 05/13/18 11:10 Estimated GFR/1.73 m2 42.17 (mL/min/1.73m2) 05/13/18 11:10 Glucose 231 mg/dL (70-100) H D 05/13/18 11:10 Lactate 1.5 mmol/L (0.6-1.4) H 05/14/18 07:07 Calcium 8.0 mg/dL (8.5-10.1) L 05/13/18 11:10 Magnesium 1.8 mg/dL (1.8-2.4) 05/12/18 06:20 Total Bilirubin 0.6 mg/dL (0.2-1.0) 05/12/18 06:20 AST 48 U/L (15-37) H 05/12/18 06:20 ALT 53 U/L (12-78) 05/12/18 06:20 Alkaline Phosphatase 72 U/L (46-116) 05/12/18 06:20 Troponin I < 0.02 ng/mL (0.00-0.06) 05/11/18 22:45 Total Protein 6.0 g/dL (6.4-8.2) L 05/12/18 06:20 Albumin 2.8 g/dL (3.4-5.0) L 05/12/18 06:20 Urine Color Yellow (Yellow) 05/11/18 22:15 Urine Clarity Clear 05/11/18 22:15 Urine pH 5.5 (5-8) 05/11/18 22:15 Ur Specific [place] 1.015 (1.005-1.025) 05/11/18 22:15 Urine Protein 30 mg/dL (Negative) H 05/11/18 22:15 Urine Ketones Negative mg/dL (Negative) 05/11/18 22:15 Urine Blood Trace-intact (Negative) H 05/11/18 22:15 Urine Nitrite Negative (Negative) 05/11/18 22:15 Urine Bilirubin Negative (Negative) 05/11/18 22:15 Urine Urobilinogen 0.2 EU/dL (Up TO 0.2) 05/11/18 22:15 Ur Leukocyte Esterase Trace (Negative) H 05/11/18 22:15 Urine RBC Negative (0-2) 05/11/18 22:15 Urine WBC 3-5 HPF (0-5) 05/11/18 22:15 Ur Epithelial Cells Negative HPF (Negative) 05/11/18 22:15 Urine Crystals Negative HPF (Negative) 05/11/18 22:15 Urine Bacteria Moderate HPF (Negative) 05/11/18 22:15 Urine Casts Negative LPF (Negative) 05/11/18 22:15 Urine Mucus Negative (Negative) 05/11/18 22:15 Urine Other Negative (Negative) 05/11/18 22:15 Ur Culture Indicated? Yes 05/11/18 22:15 Urine Glucose Negative mg/dL (Negative) 05/11/18 22:15
--- NOTE | 2018-05-14 13:20 | PDOC.CMPRO ---
Care Management Progress Note S/O-Met with Cherry today. 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 She is feeling good and looking forward to d/c home when MD indicates she is ready. She has been working on getting assistance from drug [employer] for one of her prescriptions since she is now in the donut hole on her prescription plan. But she has proved herself quite capable of managing this. Gave her some suggestions to pursue in May during open enrollment for Medicare part D. No change tp overall plan. A-73 yo woman admitted with sepsis. P-d/c home as per MD when medically stable, no services anticipated. to transport.
--- NOTE | 2018-05-14 14:09 | NUR.NOTE ---
Nursing Note: Pt walked from ICU to unit 217. A&Ox3, energetic and talkative. LS clear, HR reg, BS positive. Reported BM today. denies pain. oriented to room and call [facility] system.
--- NOTE | 2018-05-14 15:18 | CMPROGNOTE_ITS ---
Care Management Progress Note S/O-Met with Cherry today. 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 She is feeling good and looking forward to d/c home when MD indicates she is ready. She has been working on getting assistance from drug [employer] for one of her prescriptions since she is now in the donut hole on her prescription plan. But she has proved herself quite capable of managing this. Gave her some suggestions to pursue in May during open enrollment for Medicare part D. No change tp overall plan. A-73 yo woman admitted with sepsis. P-d/c home as per MD when medically stable, no services anticipated. to transport.
[2018-05-14] MEDS: Acetaminophen 325 MG TAB PO ×2 (15:48→21:50)
[2018-05-14 16:48] VITALS: BP 130/69; PULSE 67; RESP 17; TEMP 37.2; O2SAT 95
[2018-05-14] MEDS: Cephalexin 500 MG CAP PO (19:45)
[2018-05-14 20:00] VITALS: PULSE 66; RESP 18; TEMP 36.3; O2SAT 96
[2018-05-15 00:35] VITALS: BP 137/74; PULSE 63; RESP 16; TEMP 35.9; O2SAT 94
[2018-05-15] MEDS: Levothyroxine 150 MCG TAB PO (06:08)
[2018-05-15] MEDS: Heparin 5,000 UNITS/ML VIAL 5000 UNITS SC (06:11)
[2018-05-15 07:35] VITALS: BP 128/64; PULSE 64; RESP 20; TEMP 36.2; O2SAT 95
[2018-05-15 07:39] LABS: Abs Immature Grans 0.01 k/cumm (0.0-0.09); Absolute Basophil Count 0.03 k/cumm (0.0-0.2); Absolute Eosinophil Count 0.27 k/cumm (0.0-0.7); Absolute Lymphocyte Count 1.79 k/cumm (1.2-3.4); Absolute Monocyte Count 0.71 k/cumm (0.11-0.7); Absolute Neutrophil Count 2.21 k/cumm (1.2-6.7); Basophils % 0.6; Eosinophils % 5.4; HCT 34.4 % (36.0-46.0); HGB 11.2 g/dL (12.0-15.5); Immature Grans % 0.2; Lymphocytes % 35.7; Mean Corp. HGB Concentration 32.6 g/dL (32.0-36.0); Mean Corpuscular Volume 95.3 fL (80-95); Mean Platelet Volume 11.7 fL (8.0-11.0); Monocytes % 14.1; Platelet Count 135 x1000/uL (130-400); RBC 3.61 m/cumm (4.00-5.20); RBC Distribution Width 14.2 % (11.7-14.6); White Blood Cell Count 5.02 k/cumm (4.4-10.8)
[2018-05-15 08:03] LABS: ALT 63 U/L (12-78); AST 59 U/L (15-37); Albumin 2.6 g/dL (3.4-5.0); Alkaline Phosphatase 111 U/L (46-116); Anion Gap 9.5 mmol/L (3-11); BUN 19 mg/dL (7-18); Bilirubin, Total 0.3 mg/dL (0.2-1.0); CO2 25.5 mmol/L (21.0-32.0); CREATININE 0.92 mg/dL (0.55-1.02); Calcium 8.9 mg/dL (8.5-10.1); Chloride 106 mmol/L (98-107); Estimated GFR 59.51 (mL/min/1.73m2); Glucose 159 mg/dL (70-100); Potassium 4.2 mmol/L (3.5-5.1); Sodium 141 mmol/L (136-145); Total Protein 5.9 g/dL (6.4-8.2)
[2018-05-15] MEDS: Magnesium Oxide 400 MG TAB PO (08:07)
[2018-05-15] MEDS: Cephalexin 500 MG CAP PO ×2 (08:07→11:57)
[2018-05-15] MEDS: Escitalopram 20 MG TAB PO (08:07)
[2018-05-15] MEDS: Omeprazole 20 MG CAPCR 40 MG PO (08:07)
[2018-05-15] MEDS: Insulin Aspart 300 UNITS/3 ML PEN SC ×2 (08:09→11:57)
[2018-05-15 08:20] VITALS: O2SAT 97
--- NOTE | 2018-05-15 13:46 | PDOC.CMPRO ---
- If Service Date Differs Date of service: 05/15/18 Time of Service: 13:46
--- NOTE | 2018-05-15 13:50 | PDOC.CMDIS ---
- If Service Date Differs Date of service: 05/15/18 Time of Service: 13:50 LACE Index Scoring Tool - Questions: Length of Stay (in days): 4 - 6 Acuity (Admit via E.D.?): Yes Comorbidities: Diabetes w/o Complication E.D. Visits: 2 - Answers: Total Score: 10 Risk of Readmission: High Risk Care Management Discharge Reason for Hospitalization: Sepsis. Discharge Plan: Silvia will discharge home when medically ready per MD. Anticipate pt will discharge with no services and follow up with PCP. Silvia will transport via private vehicle with her , Andi. Patient/Family Education Needs: Discharge education, any limitations and follow up plan of care. Ask Me Three discussion.
--- NOTE | 2018-05-15 14:50 | DSE_ITS ---
Date of service: 05/15/18 Time of Service: 14:50 DS: Diagnosis Discharge Diagnosis (1) Sepsis: Status: Acute (2) E coli bacteremia: Status: Acute (3) Hypertension: Status: Chronic (4) DVT prophylaxis: Status: Acute (5) E. coli UTI: Status: Acute Asessment and Plan: discharge on continued Keflex w/ repeat U.A. and urine culture upon completion of antibiotics Discharge Plan Disposition Patient Disposition: HOME Condition: Improving Discharge Details Chief Complaint: Fever Reason For Visit: SEPSIS Admit Date/Time: 05/12/18 00:25 Admit Provider: Jean Carlos Villar Attending Provider: Jhon Watts Primary Care Provider: Jena Mitchell ED Provider: Velvet Holguin [facility] Course Hospital Course: 73-year-old female with past medical history of type 2 diabetes mellitus, noncardiogenic syncope, PSVT, peripheral vascular disease, [place] who presented to the emergency department on May 12, 2018 with complaints of fever and altered mental status. She recently been hospitalized briefly for right upper quadrant abdominal pain and workup included CT scan of the abdomen that showed a dilated gallbladder and elevated AST. Subsequent ultrasound the abdomen failed to show any abnormalities of her gallbladder. She was noted to have cirrhosis of liver both on CAT scan and ultrasound. Eventually she was discharged to the hospital but then re-presented to the emergency department on May 12, 2018 with fever leukocytosis and lactic acidosis and a mildly abnormal urinalysis. Her AST remained elevated but unchanged from prior hospitalization. Patient was noted by her to be confused but with IV fluid hydration emergency room her mental status was clearing. Blood and urine cultures were obtained and she was started on parenteral antibiotics including ceftriaxone 2 g IV daily. She remains on ceftriaxone and her fevers resolved her leukocytosis resolved. Repeat blood cultures were obtained and came back no growth at which point her ceftriaxone was discontinued on May 14, 2018 and she was put on Keflex. She did well overnight had no fevers or chills and no dysuria. She is now discharged home to continue on Keflex 500 mg 4 times a day for another 11 days. 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 Home Meds and New Rx's Prescriptions: Continue diltiazem HCl [Cartia XT] 300 MG capsule,extended release 24hr 300 mg PO DAILY RF: 0 escitalopram oxalate 20 MG tablet 20 mg PO DAILY RF: 0 hydrochlorothiazide 12.5 MG tablet 25 mg PO DAILY RF: 0 ibuprofen-diphenhydramine cit [Advil PM] 1 EACH tablet 1 ea PO PRN RF: 0 levothyroxine 137 MCG tablet 150 mcg PO DAILY RF: 0 omeprazole 40 MG capsule,delayed release(DR/EC) 40 mg PO DAILY RF: 0 magnesium oxide 400 MG capsule 400 mg PO DAILY RF: 0 liraglutide 0.6 mg/0.1 mL (18 mg/3 mL) pen injector 1.8 mg subcut DAILY RF: 0 losartan 50 mg Tablet 25 mg PO DAILY RF: 0 Discharge Instructions Instructions: Sepsis (GEN) Stand Alone Forms: Nursing Discharge Form Referrals: Jena Mitchell MD [Primary Care Provider] - 05/20/18 9:15 am Print Language: Nepali Activity:: Activity as Tolerated Equipment/Supplies:: No Equipment Needed Diet:: As Tolerated Discharge Orders Discharge Orders: Discharge Order (Routine); Ordered 05/15/18 Ordered By: Jhon Watts Discharge Data Discharge Date/Time-TO BE ENTERED AT DEPARTURE: 05/15/18 15:32 DS: Summary Status at Discharge Functional status at discharge: independent ambulation Overall status at discharge: patient is progressing back to baseline Time Spent with Patient Greater than 30 minutes Exam Const General: cooperative, healthy appearing, comfortable, no acute distress, well developed and well groomed Nutritional Appearance: obese and overweight Orientation: alert, awake and oriented x3 Resp Effort & Inspection: normal respiratory effort and able to speak in complete sentences Auscultation: clear to auscultation bilaterally Cardio Jugular venous pressure: no JVD Palpation: normal PMI Rate: regular rate Rhythm: regular rhythm Heart Sounds: S1 normal, S2 normal, normal, physiologic split S2, no gallops, no murmurs and no rubs GI Inspection: normal to inspection Palpation: soft Percussion: normal to percussion Auscultation: normal bowel sounds General: No CVA tenderness Back/Spine/Pelvis Back: no CVA tenderness Extrem General: normal to inspection, full ROM, normal capillary refill and no clubbing , cyanosis or edema Psych Appearance: grossly normal and well kempt Mental Status: mental status grossly normal Speech and Movement: speech and movement normal Mood: congruent mood Affect: normal affect Attitude: cooperative Thought Process: normal Thought Content: normal Insight: insight good Judgment: judgment good DS: Data Vitals/I&O Vitals and I&O: Vital Signs Temp 36.2 C L 05/15/18 07:35 Pulse 64 05/15/18 07:35 Resp 20 05/15/18 07:35 BP 128/64 05/15/18 07:35 Pulse Ox 97 05/15/18 08:20 Intake & Output 05/14/18 05/15/18 05/15/18 23:59 11:59 23:59 Intake Total 960 / 960 365 / 365 250 / 250 Balance 960 / 960 365 / 365 250 / 250 Weight 99.5 kg Intake: Oral 960 / 960 365 / 365 250 / 250 Other: Comment Void x1 in the toilet. Voiding Methods Toilet Labs on day of discharge: Labs from last 24 hours 05/15/18 05/15/18 05/15/18 07:10 07:10 05:35 WBC 5.02 RBC 3.61 L Hgb 11.2 L Hct 34.4 L MCV 95.3 H MCH 31.0 MCHC 32.6 RDW 14.2 Plt Count 135 MPV 11.7 H Immature Gran % 0.2 Neutrophils % 44.0 Lymphocytes % 35.7 Monocytes % 14.1 Eosinophils % 5.4 Basophils % 0.6 Absolute Neutrophils 2.21 Absolute Lymphocytes 1.79 Absolute Monocytes 0.71 H Absolute Eosinophils 0.27 Absolute Basophils 0.03 Sodium 141 Cancelled Potassium 4.2 Cancelled Chloride 106 Cancelled Carbon Dioxide 25.5 Cancelled Anion Gap 9.5 Cancelled BUN 19 H Cancelled Creatinine 0.92 Cancelled Estimated GFR/1.73 m2 59.51 Cancelled Glucose 159 H Cancelled Calcium 8.9 Cancelled Total Bilirubin 0.3 AST 59 H ALT 63 Alkaline Phosphatase 111 Total Protein 5.9 L Albumin 2.6 L Preliminary micro results at discharge 05/13/18 15:41 Blood Culture - Preliminary Blood NO GROWTH 24 HOURS 05/13/18 15:34 Blood Culture - Preliminary Blood NO GROWTH 24 HOURS
== END 2018-05-15 15:32 | disposition home or self-care (01) | DRG 872 ==
LOC: ER 05-12 00:33 → ICU 05-12 12:25 → MS 05-15 09:33 → ICU 05-27 13:59
PROVIDERS: Admitting Provider Internal Medicine; Emergency Provider Physician Assistant; PCP Family Medicine; Visit Provider Internal Medicine
DX: A41.51 Sepsis due to Escherichia coli [E. coli] (principal); N39.0 Urinary tract infection, site not specified; N17.9 Acute kidney failure, unspecified; I47.1 Supraventricular tachycardia; I10 Essential (primary) hypertension; K75.81 Nonalcoholic steatohepatitis (NASH); K74.60 Unspecified cirrhosis of liver; E11.51 Type 2 diabetes mellitus with diabetic peripheral angiopathy without gangrene; E03.9 Hypothyroidism, unspecified; I70.1 Atherosclerosis of renal artery; E78.5 Hyperlipidemia, unspecified; K21.9 Gastro-esophageal reflux disease without esophagitis; Z95.820 Peripheral vascular angioplasty status with implants and grafts; G47.33 Obstructive sleep apnea (adult) (pediatric)
CPT/HCPCS: 36410; 36415; 76770; 80048; 80053; 87040; 87077; 96361; 96365; 96366; 99223; 99232; 99238; 99285; 70450; 71046; 76700; 81003; 81015; 83605; 83735; 84484; 85025; 87086; 87186; 99220; 99221; J1644; J3480

== ENCOUNTER 2018-06-02 01:59 | Outpatient (CLI) | payer MEDICARE, SELFPAY ==
[2018-06-02 09:21] LABS: HCT 40.4 % (36.0-46.0); HGB 13.2 g/dL (12.0-15.5); Mean Corp. HGB Concentration 32.7 g/dL (32.0-36.0); Mean Corpuscular Hemoglobin 31.1 pg (27.0-33.0); Mean Corpuscular Volume 95.1 fL (80-95); Mean Platelet Volume 10.6 fL (8.0-11.0); Platelet Count 140 x1000/uL (130-400); RBC 4.25 m/cumm (4.00-5.20); RBC Distribution Width 13.5 % (11.7-14.6); White Blood Cell Count 5.89 k/cumm (4.4-10.8)
[2018-06-02 10:20] LABS: ALT 97 U/L (12-78); AST 84 U/L (15-37); Albumin 3.6 g/dL (3.4-5.0); Alkaline Phosphatase 128 U/L (46-116); Anion Gap 7.5 mmol/L (3-11); BUN 20 mg/dL (7-18); Bilirubin, Total 0.5 mg/dL (0.2-1.0); CO2 29.5 mmol/L (21.0-32.0); CREATININE 1.28 mg/dL (0.55-1.02); Calcium 8.9 mg/dL (8.5-10.1); Chloride 103 mmol/L (98-107); Estimated GFR 40.65 (mL/min/1.73m2); Glucose 136 mg/dL (70-100); Potassium 4.7 mmol/L (3.5-5.1); Sodium 140 mmol/L (136-145); Total Protein 6.8 g/dL (6.4-8.2)
== END 2018-06-02 02:19 ==
PROVIDERS: PCP Family Medicine; Visit Provider Family Medicine
DX: K74.69 Other cirrhosis of liver (principal); I10 Essential (primary) hypertension; E03.9 Hypothyroidism, unspecified
CPT/HCPCS: 36415; 80053; 85027; 84443

== ENCOUNTER 2018-06-17 11:58 | Outpatient (REF) | payer MEDICARE, SELFPAY | END 2018-06-17 12:18 | LOC: NCHCN 11:58 | PROVIDERS: PCP Family Medicine; Visit Provider Family Medicine | DX: N39.0 Urinary tract infection, site not specified (principal) | CPT/HCPCS: 87086 ==

== ENCOUNTER 2018-08-03 06:11 | Day surgery (SDC) | payer MEDICARE, SELFPAY ==
[2018-08-03 06:28] VITALS: BP 137/69; PULSE 75; RESP 18; TEMP 36.4; O2SAT 94
[2018-08-03] MEDS: Lactated Ringers 1,000 ML 80 ML IV ×2 (06:57→08:30)
[2018-08-03] MEDS: Oxymetazolone 0.05% SPRAY 15 ML BTL (08:03)
[2018-08-03 08:44] VITALS: BP 112/58; PULSE 77; RESP 14; TEMP 36.4; O2SAT 99
[2018-08-03 08:49] VITALS: BP 107/56; PULSE 80; RESP 14; TEMP 36.4; O2SAT 98
[2018-08-03 08:54] VITALS: BP 109/61; PULSE 80; RESP 15; TEMP 36.4; O2SAT 98
[2018-08-03 09:09] VITALS: BP 110/56; PULSE 78; RESP 15; TEMP 36.4; O2SAT 97
[2018-08-03 10:20] VITALS: BP 120/48; PULSE 72; RESP 16; TEMP 36.4; O2SAT 91
--- NOTE | 2018-08-03 11:23 | ROE_ITS ---
DATE OF PROCEDURE: August 03, 2018 PREOPERATIVE DIAGNOSIS: 1. Chronic nasal obstruction. 2. Nasoseptal deviation. 3. Inferior turbinate hypertrophy with obstruction. 4. Obstructive sleep apnea. POSTOPERATIVE DIAGNOSIS: Same. PROCEDURE: 1. Nasal septal reconstruction. 2. Bilateral inferior turbinate reduction submucosally. SURGEON: Mark Gonsalez D.O. ANESTHESIA: General. COMPLICATIONS: None. CONDITION: Patient tolerated the procedure well. INDICATIONS FOR PROCEDURE: This is a pleasant 73-year-old female who presents with a long history of chronic difficulty breathing through her nose. She has opted to proceed with surgery. She also has associated obstructive sleep apnea she is looking to improve symptoms as it relates to this as well. Risks and complications were discussed in detail. Consent was placed in the chart. PROCEDURE: The patient was brought back to the operating suite in stable condition, placed supine on the operating table and intubated in a normal fashion. The table was rotated 90 degrees. Afrin-soa ked pledgets were placed into bilateral nares. The initial 15 cc's of 1% Lidocaine with 1:100,000 ep inephrine was injected into the septum and inferior turbinates bilaterally with a significant deviati on to the right with 80% obstruction of the right-sided naris. The patient was prepped and draped in normal fashion. A time-out was taken to confirm proper patient and procedure. A #15 blade scalpel was used to perform a Mary Esther-type incision in the left septal mucosa. A submuco teo subperichondrial flap was elevated. A cross-over incision through the septal cartilage was perfo rmed. A similar subperichondrial flap on the right side was performed. The anterior cartilage had o ssified. Some of the cartilage was removed with a swivel knife, but most was excised with a double-a ction true-cutting instrument. The entire septoplasty was performed in similar fashion. Appropriate superior and caudal strut was maintained for support. The obstruction was relieved. A #15 blade scalpel was used to incise the anterior face of the inferior turbinates bilaterally. A 2 .0 mm inferior turbinate blade was used to remove the soft tissue and cartilage bilaterally. L-frac ture with a Smitha elevator was performed. Stab incisions were closed with #4-0 chromic gut suture. The subperichondrial flaps of the septum were reapproximated with #4-0 chromic gut suture. Richardson spl ints were placed with Bactroban and suture to the columella. The patient had a great result with mid line anatomy and was stable to PACU. Estimated blood loss was 5 cc's. No complications noted.
== END 2018-08-03 11:05 | disposition home or self-care (01) ==
PROVIDERS: PCP Family Medicine; Visit Provider Otolaryngology Otolaryngology/Facial Plastic Surgery
PROC: (CPT 30520; principal; 2018-08-03 07:30)
DX: J34.89 Other specified disorders of nose and nasal sinuses (principal); J34.3 Hypertrophy of nasal turbinates; J34.2 Deviated nasal septum; G47.33 Obstructive sleep apnea (adult) (pediatric)
CPT/HCPCS: 30520; 30930; J0131; J0690; J1100; J2250; J2405; J3010

== ENCOUNTER 2018-12-01 08:03 | Outpatient (CLI) | payer MEDICARE, SELFPAY ==
[2018-12-01 09:58] LABS: BUN 32 mg/dL (7-18); CREATININE 1.34 mg/dL (0.55-1.02); Calcium 9.1 mg/dL (8.5-10.1); Chloride 103 mmol/L (98-107); Estimated GFR 38.56 (mL/min/1.73m2); Glucose 146 mg/dL (70-100); Potassium 4.4 mmol/L (3.5-5.1); Sodium 139 mmol/L (136-145); TSH (W/Ref FT4) 1.23 uIU/mL (0.358-3.74)
== END 2018-12-01 08:23 ==
PROVIDERS: PCP Family Medicine; Visit Provider Family Medicine
DX: E11.9 Type 2 diabetes mellitus without complications (principal); I10 Essential (primary) hypertension; E03.9 Hypothyroidism, unspecified
CPT/HCPCS: 36415; 80048; 84443

== ENCOUNTER 2018-12-04 06:20 | Emergency (ER) | payer MEDICARE, SELFPAY ==
[2018-12-04] VITALS (33 sets, daily range): BP systolic 116–157; BP diastolic 51–68; PULSE 88–116; RESP 11–19; TEMP 36.6; O2SAT 91–98
--- NOTE | 2018-12-04 07:15 | W.ED.GENAD ---
Discharge Plan Disposition Patient Disposition: HOME Condition: Improving Discharge Details Chief Complaint: Dizzy/Sync Clinical Impression: Syncope, Nausea & vomiting Primary Care Provider: Jena Mitchell ED Provider: Kain Hendricks Home Meds and New Rx's Prescriptions: No Action diltiazem HCl [Cartia XT] 300 MG capsule,extended release 24hr 300 mg PO DAILY RF: 0 escitalopram oxalate 20 MG tablet 20 mg PO DAILY RF: 0 hydrochlorothiazide 12.5 MG tablet 25 mg PO DAILY RF: 0 ibuprofen-diphenhydramine cit [Advil PM] 1 EACH tablet 1 ea PO PRN RF: 0 omeprazole 40 MG capsule,delayed release(DR/EC) 40 mg PO DAILY RF: 0 levothyroxine 150 mcg Capsule 150 mcg PO DAILY RF: 0 liraglutide 0.6 mg/0.1 mL (18 mg/3 mL) pen injector 1.8 mg subcut HS RF: 0 Discharge Instructions Instructions: Acute Nausea and Vomiting (ED) Additional Instructions: 1. Drink plenty of fluids. Advance diet as tolerated 2. Continue all medications as prescribed. 3. Acetaminophen 1000mg every 4 hours (up to 5 time a day) and/or ibuprofen 600mg every 6 hours as needed for fever or pain. Return to the Emergency Department (ED) if your condition worsens, does not improve as expected, or for ANY other concerns. Specifically, return if you have new or uncontrolled pain, worsening fever, difficulty breathing, vomiting, or are unable to drink fluids. Discharge Data Discharge Date/Time-TO BE ENTERED AT DEPARTURE: 12/04/18 10:20 Medical Decision Making <Leonel King MD - Last Filed: 12/04/18 20:20> Patient here with nausea and vomiting all night. She had syncope this morning. May be related to dehydration but she is reporting syncope last week as well. 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 Presumably compression on the right carotid is what caused her syncope. She does appear to have a hyperactive right carotid as carotid massage on the size causes heart rate dropped by about 30 points. However, this morning she is also somewhat orthostatic. Will place IV and get labs. Will give fluids and Zofran. Will scan her head as she has had 2 episodes of syncope with head trauma. She is neurologically intact with only mild headache. Discussed with radiologist, Dr. Westfall. We will also get CT neck with contrast to evaluate for recurrent lymphoma. Patient will be signed out to oncoming physician Dr. Hendricks who will follow up on labs and CAT scan and disposition patient appropriately. Lab Data Lab results reviewed: Yes I reviewed the patient's lab results. ECG Data Attestation: I personally reviewed and interpreted this ECG (s) as follows: Interpretation: Sinus rhythm at 96. Normal intervals and axis. Normal ST segments. <Kain Hendricks MD - Last Filed: 12/04/18 17:47> Assumed care of this 73-year-old woman who presented with a syncopal episode temporally associated with recurrent nausea and emesis. Had a previous syncope remotely associated with a right neck mass and has since had one episode of unprovoked syncope last week. Nonfocal exam. Care transferred with labs and CT imaging pending. Labs nondiagnostic. CT also negative with incomplete opacification of the carotid artery due to contrast timing. However, no radiographic evidence of an acute neck mass. On reevaluation after receiving the IV crystalloid and IV ondansetron, patient subjectively improved with complete resolution of nausea and subjective lightheadedness. Discussed unclear etiology of her recurrent symptoms of syncope and reviewed negative diagnostic findings here. Discharged home with a plan for aggressive hydration, continued medications, and outpatient PCP follow-up as needed. Pt evaluated immediately prior to discharge with improved symptoms, normal vital signs, and tolerating PO. The patient feels appropriate for discharge home. Discussed clinical/diagnostic findings. Discharged with a clear plan for outpatient follow up. Given usual and customary return instructions prior to discharge. HPI <Leonel King MD - Last Filed: 12/04/18 20:20> General Mode of arrival: wheelchair. Date/Time Provider Initiated Documentation: 12/04/18 06:41. Limitations to Documentation: no limitations. Information obtained by: patient. HPI Narrative: Patient presents to ED with syncope this morning. She had been up all night with nausea/vomiting. She had some crampy pain but really had no diarrhea. Still has nausea but has not really having any abdominal pain. She has no chest pain. She has no shortness of breath. She has no fever. She went to the bathroom this morning to urinate. Apparently passed out and was found on the floor by her . She has no complaints of neck or back pain. She has normal neurologically. She reports passing out last week as well. This was not really associated with any type of illness or activity. 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 She is concerned that maybe she has had recurrence. Related Data Home Medications Medication Instructions Recorded Confirmed omeprazole 40 mg PO DAILY 09/23/13 12/04/18 diltiazem HCl [Cartia XT] 300 mg PO DAILY tab-cap 02/29/16 12/04/18 escitalopram oxalate 20 mg PO DAILY tab-cap 02/29/16 12/04/18 hydrochlorothiazide 25 mg PO DAILY tab-cap 02/29/16 12/04/18 ibuprofen-diphenhydramine cit 1 ea PO PRN 02/29/16 12/04/18 [Advil PM] liraglutide 1.8 mg SUBCUT HS 05/05/18 12/04/18 levothyroxine 150 mcg PO DAILY 07/30/18 12/04/18 Allergies Allergy/AdvReac Type Severity Reaction Status Date / Time tamoxifen Allergy Intermediate liver Verified 12/04/18 07:56 complications amlodipine AdvReac Intermediate leg pain Verified 12/04/18 07:56 atenolol AdvReac Intermediate leg pain Verified 12/04/18 07:56 doxazosin AdvReac Intermediate leg pain Verified 12/04/18 07:56 enalapril AdvReac Intermediate leg pain Verified 12/04/18 07:56 glipizide AdvReac Intermediate body aches Unverified 12/04/18 07:56 lisinopril AdvReac Intermediate leg pain Verified 12/04/18 07:56 sertraline AdvReac Intermediate leg pain Verified 12/04/18 07:56 simvastatin [From Zocor] AdvReac Intermediate leg pain Verified 12/04/18 07:56 Uwptmey-Xyl-Vix Reductase AdvReac Intermediate leg pains Unverified 12/04/18 07:56 Inhibitor ticlopidine AdvReac Intermediate leg pain Verified 12/04/18 07:56 valsartan AdvReac Intermediate leg pain Verified 12/04/18 07:56 General Stated Complaint: Dizzy/Sync JUANITA: 3 Review of Systems <Leonel King MD - Last Filed: 12/04/18 20:20> Review of Systems 06/07 Review of Systems completed and is negative except as stated above in HPI (Systems reviewed: Const, Eyes, ENT, Resp, CV, GI, , MSK, Skin, Neuro) PFSH <Leonel King MD - Last Filed: 12/04/18 20:20> Medical History TERRY (obstructive sleep apnea) (Chronic) PVD (peripheral vascular disease) (Chronic) 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) GERD (gastroesophageal reflux disease) (Chronic) Dyslipidemia (Chronic) Hypertension (Chronic) Renal artery stenosis (Chronic) Hypothyroidism (Chronic) History of syncope (Chronic) Diabetes mellitus (Chronic) SVT (supraventricular tachycardia) (Chronic) Syncope (Chronic) Breast Cancer (Inactive) Lymphoma (Inactive) Surgical History Excision of neck mass (Inactive) Nail removal (toe) (Inactive) Partial mastectomy with sentinal node (Inactive) Rotator Cuff Repair (Inactive) Social History Smoking/Tobacco Use Status: Never Alcohol Intake: never Drug use: Never Substance use type: does not use Do you feel safe in your relationship?: Yes Additional Social history: with 4 children. 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 Denies alcohol or tobacco use. Female Reproductive History Menstrual Menopause type: natural Exam <Leonel King MD - Last Filed: 12/04/18 20:20> Narrative Exam Narrative: 1. Const: WDWN female in NAD. 2. Eyes: No conjunctival injection or scleral icterus. 3. ENT: NC/AT. No facial swelling or tenderness. Mucous membranes moist. 4. Neck: Supple without adenopathy. Trachea midline. 5. CVS: RRR with murmur. Good radial pulses. Right carotid massage causes decreased HR. 6. RESP: Unlabored respiratory effort. Clear to auscultation bilaterally. No wheezes, rales or rhonchi. 7. GI: Soft, NT/ND, no hepatosplenomegaly. No guarding or rebound. 8. MSK: No C/C/E present. No deformity or tenderness noted. 9. Skin: Warm and dry. No rashes. 10. Neuro: A&O x3. 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 Sensation grossly intact, no focal neurologic deficits. 11. Psych: Appropriate mood and affect. Course <Leonel King MD - Last Filed: 12/04/18 20:20> Vital Signs Temperature 97.9 F 12/04/18 06:31 Pulse 94 H 12/04/18 06:31 Respiratory Rate 16 12/04/18 06:31 Blood Pressure 150/59 H 12/04/18 06:31 Pulse Oximetry 95 12/04/18 06:31 Temperature 97.9 F 12/04/18 06:31 Temperature Source Temporal Artery Scan 12/04/18 06:31 Pulse 93 H 12/04/18 07:00 Pulse 93 H 12/04/18 06:46 Respiratory Rate 15 12/04/18 06:36 Respiratory Effort 12/04/18 06:36 Respiratory Depth Normal 12/04/18 06:36 Respiratory Pattern Normal 12/04/18 06:36 Blood Pressure 138/55 L 12/04/18 07:00 Blood Pressure Mean 75 12/04/18 06:46 Pulse Oximetry 96 12/04/18 06:46 Oxygen Delivery Method Room Air 12/04/18 06:31 Oxygen Flow Rate 0 12/04/18 06:31 Pain Level 2 12/04/18 06:36 Sign Out <Leonel King MD - Last Filed: 12/04/18 20:20> Sign Out Data: Sign Out Comment: signed out pending labs/CT results Last updated by Leonel King MD at 12/04/18 08:33
[2018-12-04] MEDS: Lactated Ringers 1,000 ML 500 ML IV (07:23)
[2018-12-04] MEDS: Ondansetron 4 MG/2 ML VIAL IVP (07:23)
[2018-12-04 08:03] LABS: ALT 87 U/L (12-78); AST 53 U/L (15-37); Albumin 3.8 g/dL (3.4-5.0); Alkaline Phosphatase 195 U/L (46-116); Anion Gap 13.2 mmol/L (3-11); BUN 32 mg/dL (7-18); Bilirubin, Total 0.7 mg/dL (0.2-1.0); CO2 23.8 mmol/L (21.0-32.0); CREATININE 1.36 mg/dL (0.55-1.02); Calcium 9.1 mg/dL (8.5-10.1); Chloride 100 mmol/L (98-107); Estimated GFR 37.91 (mL/min/1.73m2); Glucose 214 mg/dL (70-100); Potassium 4.1 mmol/L (3.5-5.1); Sodium 137 mmol/L (136-145); Total Protein 7.5 g/dL (6.4-8.2)
[2018-12-04 08:04] LABS: Troponin I < 0.02 ng/mL (0.00-0.06)
--- NOTE | 2018-12-04 08:30 | ED.GENADUL_ITS ---
Discharge Plan Disposition Patient Disposition: HOME Condition: Improving Discharge Details Chief Complaint: Dizzy/Sync Clinical Impression: Syncope, Nausea & vomiting Primary Care Provider: Jena Mitchell ED Provider: Kain Hendricks Home Meds and New Rx's Prescriptions: No Action diltiazem HCl [Cartia XT] 300 MG capsule,extended release 24hr 300 mg PO DAILY RF: 0 escitalopram oxalate 20 MG tablet 20 mg PO DAILY RF: 0 hydrochlorothiazide 12.5 MG tablet 25 mg PO DAILY RF: 0 ibuprofen-diphenhydramine cit [Advil PM] 1 EACH tablet 1 ea PO PRN RF: 0 omeprazole 40 MG capsule,delayed release(DR/EC) 40 mg PO DAILY RF: 0 levothyroxine 150 mcg Capsule 150 mcg PO DAILY RF: 0 liraglutide 0.6 mg/0.1 mL (18 mg/3 mL) pen injector 1.8 mg subcut HS RF: 0 Discharge Instructions Instructions: Acute Nausea and Vomiting (ED) Additional Instructions: 1. Drink plenty of fluids. Advance diet as tolerated 2. Continue all medications as prescribed. 3. Acetaminophen 1000mg every 4 hours (up to 5 time a day) and/or ibuprofen 600mg every 6 hours as needed for fever or pain. Return to the Emergency Department (ED) if your condition worsens, does not improve as expected, or for ANY other concerns. Specifically, return if you have new or uncontrolled pain, worsening fever, difficulty breathing, vomiting, or are unable to drink fluids. Discharge Data Discharge Date/Time-TO BE ENTERED AT DEPARTURE: 12/04/18 10:20 Medical Decision Making <Leonel King MD - Last Filed: 12/04/18 20:20> Patient here with nausea and vomiting all night. She had syncope this morning. May be related to dehydration but she is reporting syncope last week as well. 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 Presumably compression on the right carotid is what caused her syncope. She does appear to have a hyperactive right carotid as carotid massage on the size causes heart rate dropped by about 30 points. However, this morning she is also somewhat orthostatic. Will place IV and get labs. Will give fluids and Zofran. Will scan her head as she has had 2 episodes of syncope with head trauma. She is neurologically intact with only mild headache. Discussed with radiologist, Dr. Westfall. We will also get CT neck with contrast to evaluate for recurrent lymphoma. Patient will be signed out to oncoming physician Dr. Hendricks who will follow up on labs and CAT scan and disposition patient appropriately. Lab Data Lab results reviewed: Yes I reviewed the patient's lab results. ECG Data Attestation: I personally reviewed and interpreted this ECG (s) as follows: Interpretation: Sinus rhythm at 96. Normal intervals and axis. Normal ST segments. <Kain Hendricks MD - Last Filed: 12/04/18 17:47> Assumed care of this 73-year-old woman who presented with a syncopal episode temporally associated with recurrent nausea and emesis. Had a previous syncope remotely associated with a right neck mass and has since had one episode of unprovoked syncope last week. Nonfocal exam. Care transferred with labs and CT imaging pending. Labs nondiagnostic. CT also negative with incomplete opacification of the carotid artery due to contrast timing. However, no radiographic evidence of an acute neck mass. On reevaluation after receiving the IV crystalloid and IV ondansetron, patient subjectively improved with complete resolution of nausea and subjective lightheadedness. Discussed unclear etiology of her recurrent symptoms of syncope and reviewed negative diagnostic findings here. Discharged home with a plan for aggressive hydration, continued medications, and outpatient PCP follow-up as needed. Pt evaluated immediately prior to discharge with improved symptoms, normal vital signs, and tolerating PO. The patient feels appropriate for discharge home. Discussed clinical/diagnostic findings. Discharged with a clear plan for outpatient follow up. Given usual and customary return instructions prior to discharge. HPI <Leonel King MD - Last Filed: 12/04/18 20:20> General Mode of arrival: wheelchair . Date/Time Provider Initiated Documentation: 12/04/18 06:41 . Limitations to Documentation: no limitations . Information obtained by: patient . HPI Narrative: Patient presents to ED with syncope this morning. She had been up all night with nausea/vomiting. She had some crampy pain but really had no diarrhea. Still has nausea but has not really having any abdominal pain. She has no chest pain. She has no shortness of breath. She has no fever. She went to the bathroom this morning to urinate. Apparently passed out and was found on the floor by her . She has no complaints of neck or back pain. She has normal neurologically. She reports passing out last week as well. This was not really associated with any type of illness or activity. 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 She is concerned that maybe she has had recurrence. Related Data Home Medications Medication Instructions Recorded Confirmed omeprazole 40 mg PO DAILY 09/23/13 12/04/18 diltiazem HCl [Cartia XT] 300 mg PO DAILY tab-cap 02/29/16 12/04/18 escitalopram oxalate 20 mg PO DAILY tab-cap 02/29/16 12/04/18 hydrochlorothiazide 25 mg PO DAILY tab-cap 02/29/16 12/04/18 ibuprofen-diphenhydramine cit 1 ea PO PRN 02/29/16 12/04/18 [Advil PM] liraglutide 1.8 mg SUBCUT HS 05/05/18 12/04/18 levothyroxine 150 mcg PO DAILY 07/30/18 12/04/18 Allergies Allergy/AdvReac Type Severity Reaction Status Date / Time tamoxifen Allergy Intermediate liver Verified 12/04/18 07:56 complications amlodipine AdvReac Intermediate leg pain Verified 12/04/18 07:56 atenolol AdvReac Intermediate leg pain Verified 12/04/18 07:56 doxazosin AdvReac Intermediate leg pain Verified 12/04/18 07:56 enalapril AdvReac Intermediate leg pain Verified 12/04/18 07:56 glipizide AdvReac Intermediate body aches Unverified 12/04/18 07:56 lisinopril AdvReac Intermediate leg pain Verified 12/04/18 07:56 sertraline AdvReac Intermediate leg pain Verified 12/04/18 07:56 simvastatin [From Zocor] AdvReac Intermediate leg pain Verified 12/04/18 07:56 Vpwhivz-Ynt-Obg Reductase AdvReac Intermediate leg pains Unverified 12/04/18 07:56 Inhibitor ticlopidine AdvReac Intermediate leg pain Verified 12/04/18 07:56 valsartan AdvReac Intermediate leg pain Verified 12/04/18 07:56 General Stated Complaint: Dizzy/Sync JUANITA: 3 Review of Systems <Leonel King MD - Last Filed: 12/04/18 20:20> Review of Systems 06/07 Review of Systems completed and is negative except as stated above in HPI (Systems reviewed: Const, Eyes, ENT, Resp, CV, GI, , MSK, Skin, Neuro) PFSH <Leonel King MD - Last Filed: 12/04/18 20:20> Medical History TERRY (obstructive sleep apnea) (Chronic) PVD (peripheral vascular disease) (Chronic) 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) GERD (gastroesophageal reflux disease) (Chronic) Dyslipidemia (Chronic) Hypertension (Chronic) Renal artery stenosis (Chronic) Hypothyroidism (Chronic) History of syncope (Chronic) Diabetes mellitus (Chronic) SVT (supraventricular tachycardia) (Chronic) Syncope (Chronic) Breast Cancer (Inactive) Lymphoma (Inactive) Surgical History Excision of neck mass (Inactive) Nail removal (toe) (Inactive) Partial mastectomy with sentinal node (Inactive) Rotator Cuff Repair (Inactive) Social History Smoking/Tobacco Use Status: Never Alcohol Intake: never Drug use: Never Substance use type: does not use Do you feel safe in your relationship?: Yes Additional Social history: with 4 children. 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 Denies alcohol or tobacco use. Female Reproductive History Menstrual Menopause type: natural Exam <Leonel King MD - Last Filed: 12/04/18 20:20> Narrative Exam Narrative: 1. Const: WDWN female in NAD. 2. Eyes: No conjunctival injection or scleral icterus. 3. ENT: NC/AT. No facial swelling or tenderness. Mucous membranes moist. 4. Neck: Supple without adenopathy. Trachea midline. 5. CVS: RRR with murmur. Good radial pulses. Right carotid massage causes decreased HR. 6. RESP: Unlabored respiratory effort. Clear to auscultation bilaterally. No wheezes, rales or rhonchi. 7. GI: Soft, NT/ND, no hepatosplenomegaly. No guarding or rebound. 8. MSK: No C/C/E present. No deformity or tenderness noted. 9. Skin: Warm and dry. No rashes. 10. Neuro: A&O x3. 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 Sensation grossly intact, no focal neurologic deficits. 11. Psych: Appropriate mood and affect. Course <Leonel King MD - Last Filed: 12/04/18 20:20> Vital Signs Temperature 97.9 F 12/04/18 06:31 Pulse 94 H 12/04/18 06:31 Respiratory Rate 16 12/04/18 06:31 Blood Pressure 150/59 H 12/04/18 06:31 Pulse Oximetry 95 12/04/18 06:31 Temperature 97.9 F 12/04/18 06:31 Temperature Source Temporal Artery Scan 12/04/18 06:31 Pulse 93 H 12/04/18 07:00 Pulse 93 H 12/04/18 06:46 Respiratory Rate 15 12/04/18 06:36 Respiratory Effort 12/04/18 06:36 Respiratory Depth Normal 12/04/18 06:36 Respiratory Pattern Normal 12/04/18 06:36 Blood Pressure 138/55 L 12/04/18 07:00 Blood Pressure Mean 75 12/04/18 06:46 Pulse Oximetry 96 12/04/18 06:46 Oxygen Delivery Method Room Air 12/04/18 06:31 Oxygen Flow Rate 0 12/04/18 06:31 Pain Level 2 12/04/18 06:36 Sign Out <Leonel King MD - Last Filed: 12/04/18 20:20> Sign Out Data: Sign Out Comment: signed out pending labs/CT results Last updated by Leonel King MD at 12/04/18 08:33
[2018-12-04] MEDS: Omnipaque 350 MG/ML 50 ML BTL IJ (08:46)
--- NOTE | 2018-12-04 08:47 | DI.CT_ITS ---
SYMPTOM/DIAGNOSIS: H/O RT NECK LYMPHOMA WITH SYNCOPE, HEAD TRAUMA CRANIAL CT (WITHOUT CONTRAST): A noncontrast cranial CT was performed. The ventricular system is normal in appearance. There is no evidence of an intracranial mass lesion. There is no evidence of a subdural or epidural hematoma. No focal areas of decreased attenuation are seen. CONCLUSION: Normal noncontrast Cranial CT. NECK CT: CT examination of the cervical region was performed with intravenous infusion of 50 cc's of Omnipaque 350. The contrast bolus is suboptimal and there is poor opacification of the carotid arteries. No gross extrinsic carotid compression seen. Vertebral arteries are also suboptimally opacified but grossly intact as visualized. No cervical mass or adenopathy is seen. Tracheal laryngeal structures appear intact. Salivary glands are unremarkable. CONCLUSION: Poor opacification of vascular structures. No gross extrinsic compression. If there is a clinical suspicion of vascular pathology, additional evaluation with MR angiography may be considered.
[2018-12-04 08:48] LABS: Abs Immature Grans 0.01 k/cumm (0.0-0.09); Absolute Basophil Count 0.01 k/cumm (0.0-0.2); Absolute Eosinophil Count 0.09 k/cumm (0.0-0.7); Absolute Lymphocyte Count 0.57 k/cumm (1.2-3.4); Absolute Monocyte Count 0.33 k/cumm (0.11-0.7); Absolute Neutrophil Count 7.19 k/cumm (1.2-6.7); Basophils % 0.1; Eosinophils % 1.1; HCT 42.3 % (36.0-46.0); HGB 13.9 g/dL (12.0-15.5); Immature Grans % 0.1; Mean Corp. HGB Concentration 32.9 g/dL (32.0-36.0); Mean Corpuscular Hemoglobin 30.5 pg (27.0-33.0); Mean Corpuscular Volume 92.8 fL (80-95); Mean Platelet Volume 11.1 fL (8.0-11.0); Neutrophils % 87.7; Platelet Count 152 x1000/uL (130-400); RBC 4.56 m/cumm (4.00-5.20); RBC Distribution Width 13.5 % (11.7-14.6)
[2018-12-04 09:38] LABS: Bilirubin Negative (Negative); Blood Negative (Negative); Clarity Clear; Glucose Negative (Negative); Ketones Negative (Negative); Leukocyte Esterase Negative (Negative); Nitrite Negative (Negative); Specific Gravity 1.015 (1.005-1.025); Urobilinogen 0.2 EU/dL (Up TO 0.2)
== END 2018-12-04 10:20 | disposition home or self-care (01) ==
PROVIDERS: Emergency Medicine; Emergency Provider Emergency Medicine; PCP Family Medicine
DX: R55 Syncope and collapse (principal); R11.2 Nausea with vomiting, unspecified; I10 Essential (primary) hypertension; E11.9 Type 2 diabetes mellitus without complications
CPT/HCPCS: 36415; 70491; 80053; 93005; 96361; 96374; 99285; 70450; 81003; 83735; 84484; 85025; 93010; J2405; Q9967

== ENCOUNTER 2018-12-09 13:35 | Outpatient (REF) | payer MEDICARE, SELFPAY ==
[2018-12-09 19:58] LABS: COMMENT (LAB VIEW ONLY) 37.08 mg/dL
== END 2018-12-09 13:55 ==
LOC: NCHCN 13:35
PROVIDERS: PCP Family Medicine; Visit Provider Family Medicine
DX: E11.9 Type 2 diabetes mellitus without complications (principal)
CPT/HCPCS: 82043; 82570

== ENCOUNTER 2018-12-16 02:13 | Outpatient (CLI) | payer MEDICARE, SELFPAY ==
--- NOTE | 2018-12-22 10:59 | HOLTER_ITS ---
DATE OF DICTATION: December 22, 2018 STUDY INDICATION: Syncope. REQUESTING PROVIDER: Jena Mitchell M.D. FINDINGS: The patient was monitored for two days. Average heart rate 71 bpm, range 63-110 bpm. One PVC. 238 PAC's. 13 atrial runs, longest 6 beats, fastest 145 bpm. No pauses greater than 3 seconds. No high-degree heart block. No patient events. FINAL INTERPRETATION: Rare atrial arrhythmias, asymptomatic.
== END 2018-12-16 02:33 ==
PROVIDERS: PCP Family Medicine; Visit Provider Family Medicine
DX: R55 Syncope and collapse (principal); I49.1 Atrial premature depolarization
CPT/HCPCS: 93225

== ENCOUNTER 2018-12-21 13:56 | Outpatient (CLI) | payer MEDICARE, SELFPAY | END 2018-12-21 14:16 | PROVIDERS: PCP Family Medicine; Visit Provider Family Medicine | DX: R55 Syncope and collapse (principal); I49.1 Atrial premature depolarization | CPT/HCPCS: 93226 ==

== ENCOUNTER 2018-12-22 10:30 | Outpatient (CLI) | payer MEDICARE, SELFPAY | END 2018-12-22 10:50 | PROVIDERS: PCP Family Medicine; Referring Provider Family Medicine; Visit Provider Student in an Organized Health Care Education/Training Program | DX: R55 Syncope and collapse (principal); I49.1 Atrial premature depolarization | CPT/HCPCS: 93227 ==

== ENCOUNTER 2019-03-31 12:53 | Emergency (ER) | payer MEDICARE, SELFPAY ==
[2019-03-31 12:58] VITALS: BP 149/59; PULSE 76; RESP 16; TEMP 36.4; O2SAT 96
--- NOTE | 2019-03-31 13:25 | W.ED.GENAD ---
Discharge Plan Disposition Patient Disposition: HOME Condition: Improving Discharge Details Chief Complaint: Orthopedic Clinical Impression: Knee osteoarthritis Primary Care Provider: Jena Mitchell ED Provider: Donavon Beckwith Home Meds and New Rx's Prescriptions: Continued diltiazem HCl [Cartia XT] 300 MG capsule,extended release 24hr 300 mg PO DAILY RF: 0 escitalopram oxalate 20 MG tablet 20 mg PO DAILY RF: 0 hydrochlorothiazide 12.5 MG tablet 25 mg PO DAILY RF: 0 omeprazole 40 MG capsule,delayed release(DR/EC) 40 mg PO DAILY RF: 0 levothyroxine 150 mcg Capsule 150 mcg PO DAILY RF: 0 diphenhydramine-acetaminophen [Acetaminophen PM] 25-500 mg Tablet RF: 0 liraglutide 0.6 mg/0.1 mL (18 mg/3 mL) pen injector 1.8 mg subcut HS RF: 0 Discharge Instructions Instructions: Arthritis (ED), Arthralgia (ED) Additional Instructions: Return if you develop a fever, redness, worsening swelling or pain. May use Tylenol if needed for discomfort. May apply gentle compression with an Jayden bandage for support and relief. Elevate the knee and apply ice to reduce discomfort. Continue your regular medications. Medical Decision Making 74yof with acute on chronic worsening of R knee pain, mostly in the face of recent increase of exercise. No fall or other acute injury. Exam with no signs of acute findings. Referred for x-ray which does not reveal acute findings. She may have an exacerbation of underlying arthritis. Discussed with her home management including conservative measures. She is stable for discharge to home. [facility] General Mode of arrival: ambulatory. Date/Time Provider Initiated Documentation: 03/31/19 13:05. Limitations to Documentation: no limitations. Information obtained by: patient. History of Present Illness 74 year old F presents to the emergency department with the chief complaint of R knee pain aworse over 2 days, described as moderate, Quality is described as dull, and is localized to the right and lower extremity. Patient reports no radiation. Patient started experiencing this hour(s) and it has been constant. Rest improves symptom(s), Movement worsens symptoms . Patient notes no other symptoms.. Patient did receive the following treatments prior to arrival, none Related Data Home Medications Medication Instructions Recorded Confirmed omeprazole 40 mg PO DAILY 09/23/13 03/31/19 diltiazem HCl [Cartia XT] 300 mg PO DAILY tab-cap 02/29/16 03/31/19 escitalopram oxalate 20 mg PO DAILY tab-cap 02/29/16 03/31/19 hydrochlorothiazide 25 mg PO DAILY tab-cap 02/29/16 03/31/19 liraglutide 1.8 mg SUBCUT HS 05/05/18 03/31/19 levothyroxine 150 mcg PO DAILY 07/30/18 03/31/19 diphenhydramine-acetaminophen tab 03/31/19 [Acetaminophen PM] Allergies Allergy/AdvReac Type Severity Reaction Status Date / Time tamoxifen Allergy Intermediate liver Verified 03/31/19 13:04 complications amlodipine AdvReac Intermediate leg pain Verified 03/31/19 13:04 atenolol AdvReac Intermediate leg pain Verified 03/31/19 13:04 doxazosin AdvReac Intermediate leg pain Verified 03/31/19 13:04 enalapril AdvReac Intermediate leg pain Verified 03/31/19 13:04 glipizide AdvReac Intermediate body aches Unverified 03/31/19 13:04 lisinopril AdvReac Intermediate leg pain Verified 03/31/19 13:04 sertraline AdvReac Intermediate leg pain Verified 03/31/19 13:04 simvastatin [From Zocor] AdvReac Intermediate leg pain Verified 03/31/19 13:04 Gaolpqo-Zlq-Gqf Reductase AdvReac Intermediate leg pains Unverified 03/31/19 13:04 Inhibitor ticlopidine AdvReac Intermediate leg pain Verified 03/31/19 13:04 valsartan AdvReac Intermediate leg pain Verified 03/31/19 13:04 General Stated Complaint: Orthopedic JUANITA: 4 Review of Systems Review of Systems 6 systems reviewed and otherwise negative [facility] Medical History Breast Cancer (Inactive) 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) Diabetes mellitus (Chronic) Dyslipidemia (Chronic) GERD (gastroesophageal reflux disease) (Chronic) History of syncope (Chronic) Hypertension (Chronic) Hypothyroidism (Chronic) Lymphoma (Inactive) TERRY (obstructive sleep apnea) (Chronic) PVD (peripheral vascular disease) (Chronic) Renal artery stenosis (Chronic) SVT (supraventricular tachycardia) (Chronic) Syncope (Chronic) Surgical History Excision of neck mass (Inactive) Nail removal (toe) (Inactive) Partial mastectomy with sentinal node (Inactive) Rotator Cuff Repair (Inactive) Social History Smoking/Tobacco Use Status: Never Alcohol Intake: never Drug use: Never Substance use type: does not use Do you feel safe in your relationship?: Yes Additional Social history: with 4 children. 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 Denies alcohol or tobacco use. Female Reproductive History Menstrual Menopause type: natural Exam Narrative Exam Narrative: GEN: awake, alert, oriented 3. Pleasant, well groomed, interactive. HEAD: Normocephalic, atraumatic ENT: Mucous membranes moist, oropharynx unremarkable, External ear exam unremarkable EYES: PERRL, EOMI EXT: Full ROM, no edema, no rash. Motor 5 out of 5. Sensation intact throughout. No laxity of the right leg/knee, no sniffing and tenderness. Neuro: Grossly normal neurologic exam, conversant, interactive. Psych: Speech fluent, thoughts congruent, affect normal Course Vital Signs Temperature 36.4 C L 03/31/19 12:58 Pulse 76 03/31/19 12:58 Respiratory Rate 16 03/31/19 12:58 Blood Pressure 149/59 H 03/31/19 12:58 Pulse Oximetry 96 03/31/19 12:58 Temperature 36.4 C L 03/31/19 12:58 Temperature Source Temporal Artery Scan 03/31/19 12:58 Pulse 76 03/31/19 12:58 Respiratory Rate 16 03/31/19 12:58 Blood Pressure 149/59 H 03/31/19 12:58 Blood Pressure Position Sitting 03/31/19 12:58 Pulse Oximetry 96 03/31/19 12:58 Oxygen Delivery Method Room Air 03/31/19 12:58 Oxygen Flow Rate 0 03/31/19 12:58 Pain Level 7 03/31/19 12:58
--- NOTE | 2019-03-31 13:27 | DI.RAD_ITS ---
SYMPTOMS/DIAGNOSIS: ACUTE ON CHRONIC PAIN RIGHT KNEE: No fracture or joint effusion is seen. Degenerative changes are noted greatest in the medial femoral tibial joint and patellofemoral joint. There is a stent seen presumably in the distal popliteal artery. IMPRESSION: Degenerative changes. No acute abnormality.
== END 2019-03-31 14:51 | disposition home or self-care (01) ==
PROVIDERS: Emergency Provider Emergency Medicine; PCP Family Medicine
DX: M17.11 Unilateral primary osteoarthritis, right knee (principal); M25.561 Pain in right knee; G89.29 Other chronic pain; E11.9 Type 2 diabetes mellitus without complications; I10 Essential (primary) hypertension
CPT/HCPCS: 73562; 99283

== ENCOUNTER 2020-01-21 10:02 | Outpatient (REF) | payer MEDICARE, SELFPAY ==
[2020-01-24 10:41] LABS: NT-proBNP 334 pg/mL (<300)
== END 2020-01-21 10:22 ==
LOC: NCHCN 10:02
PROVIDERS: PCP Family Medicine; Visit Provider Nurse Practitioner Family
DX: R06.02 Shortness of breath (principal); I10 Essential (primary) hypertension; E11.9 Type 2 diabetes mellitus without complications
CPT/HCPCS: 80053; 85027; 83880; 84443

== ENCOUNTER 2020-02-08 08:11 | Outpatient (CLI) | payer MEDICARE, SELFPAY ==
--- NOTE | 2020-02-08 08:45 | DI.NM_ITS ---
APPROVED REPORT Exam: Exercise Treadmill Patient Location: Out-Patient Room/Bed: Stress Nurse: Isabel Arias RN BMI: 39.85 Baseline Rhythm: Sinus Rhythm, PAC's, PVC's Indications: Patient reports 6 to 8 weeks of SOB and left lateral chest ???dull pressure??? (12/02) wi th activity that goes away after 5 ??? 10 minutes with sitting down. Of note patient???s pass ed away approximately four weeks ago. Medical History Medical History: GERD, TERRY, DVT, Hypothyroidism, SVT, Syncope, Renal Artery Stenosis. Cardiac Medications: Hydrochlorothiazide, Diltiazam. Allergies: Simvastatin, Statins, Ticlopidine, Valsartan, Tamoxifen, Amlodipine, Atenolol, Lisinopril, Doxazosin, Enalapril, Glipizide, Sertraline. Cardiac Risk Factors: FHX of CAD, HTN, Hyperlipidemia, PVD, Diabetes (insulin) Previous Cardiac Procedures: None Pretest Chest Pain Characteristics: None Exercise History: Sedentary Physical Disabilities: Legs Lung Sounds: Clear to auscultation Heart Sounds: Regular, Murmur Stress Test Details Test: Exercise stress testing was performed using a Yao protocol. Nuclear Acquisition: Rest Tc-99m/Stress Tc-99m 1 day Rest Isotope: Tc-99m Sestamibi. Dose: 10.2 Date: 02/08/2020 Injection Time: 0900 Stress Isotope: Tc-99m Sestamibi. Dose: 32 Date: 02/08/2020 Injection Time: 1042 HR Resting HR Supine: 64 bpm Max Heart Rate (APMHR): 144 bpm Resting HR Standin bpm Target HR (85% APMHR): 122 bpm Max HR Achieved: 134 bpm % of APMHR: 93 HR response to stress: Normal HR response to stress BP Resting BP Supine: 166/70 mmHg Resting BP Standin/70 mmHg Max BP: 184/62 mmHg BP response to stress: Normal blood pressure response to stress. ECG Resting ECG: Sinus Rhythm, PAC's, PVC's Stress ECG: Sinus Tachycardia ST Change: Normal Recovery ECG: Sinus Rhythm Recovery ST Change: Normal Recovery Arrhythmia: None Clinical Reason for Termination: Fatigue Stress Symptoms: None reported per patient. Exercise duration: 4 min30 sec Highest Stage Reached: Stage 2: 2.5 mph at 12% grade. Exercise capacity: 6.43 METs Functional Capacity: Average Capacity Stress ECG Conclusion 1. Patient exercised for 4 minutes and 30 seconds (6 METS) 2. There was no evidence of ischemia on the ECG portion of the exam. Stress Test Summary STAGE Time (mins) Speed (mph) Grade (%) HR BP SYMPTOMS METS Supine 64 166/70 Standing 72 168/70 1 3 1.7 10 114 170/74 4.6 2 6 2.5 12 130 7 1 min recovery 117 192/60 3 min recovery 81 184/62 6 min recovery 77 168/60 MPI Conclusion Ejection fraction was 63% with stress. There were no wall motion abnormalities. Is a very small reversible defect at the apex which could be due to diaphragmatic attenuation. Clinical correlation is recommended. Radiologist Interpretation Radiologist agrees with Disc Jockey's Interpretation. Radiologist Interpretation by: Rupinder Vu MD Interpretation Date/Time: 02/11/2020 10:16:28
== END 2020-02-08 08:31 ==
PROVIDERS: PCP Family Medicine; Visit Provider Family Medicine
DX: R06.02 Shortness of breath (principal); R07.89 Other chest pain; I47.1 Supraventricular tachycardia; R55 Syncope and collapse; I10 Essential (primary) hypertension; E78.5 Hyperlipidemia, unspecified; E11.9 Type 2 diabetes mellitus without complications; Z79.4 Long term (current) use of insulin; Z82.49 Family history of ischemic heart disease and other diseases of the circulatory system
CPT/HCPCS: 78452; 93016; 93018; 93017

== ENCOUNTER 2020-03-28 00:59 | Outpatient (CLI) | payer MEDICARE, SELFPAY ==
--- NOTE | 2020-03-28 10:35 | DI.US_ITS ---
APPROVED REPORT EXAM: Comprehensive 2D, Doppler, and color-flow Echocardiogram Patient Location: Out-Patient Quilter Fixer: Vinita Ge RDCS (AE) Indications: SOB Other Information Study Quality: Good Conclusion Left Ventricle : The left ventricle is normal size. The left ventricular systolic function is normal. The left ventricular ejection fraction is within the normal range. There is normal left ventricular wall thickness. There is normal LV segmental wall motion. Diastolic function is indeterminate. There is evidence of impaired relaxation. LVEF is 60%. Right Ventricle : The right ventricle is normal size. The right ventricular systolic function is norm al. The RVSP is 27 mmHg. Atria : The left atrium size is normal. The right atrium size is normal. Aortic Valve : Aortic valve is probably trileaflet. Aortic valve is calcified. Mild aortic stenosis. Peak aortic valve gradient is 30.5mmHg. Highest mean aortic valve gradient is 18.7mmHg. Calculated AV A by the continuity equation is 1.37cm2. No aortic regurgitation is present. Mitral Valve : There is mitral annular calcification. The mitral valve is thickened but opens well. N o evidence of mitral valve stenosis. Mild mitral regurgitation. Great Vessels : The aortic root is normal in size. The ascending aorta is moderately dilated. Aortic arch is normal in caliber. IVC is normal in size and collapses >50% with inspiration. Compared to echocardiogram from 09/01/2018, there is no significant change. Wall motion Left Ventricle The left ventricle is normal size. The left ventricular systolic function is normal. The left ventric ular ejection fraction is within the normal range. There is normal left ventricular wall thickness. T here is normal LV segmental wall motion. Diastolic function is indeterminate. There is evidence of im paired relaxation. There is no ventricular septal defect visualized. LVEF is 60%. Right Ventricle The right ventricle is normal size. The right ventricular systolic function is normal. The RVSP is 27 mmHg. Atria The left atrium size is normal. The right atrium size is normal. The interatrial septum is intact wit h no evidence for an atrial septal defect. Aortic Valve Aortic valve is probably trileaflet. Aortic valve is calcified. Mild aortic stenosis. Peak aortic bryn ve gradient is 30.5mmHg. Highest mean aortic valve gradient is 18.7mmHg. Calculated BROOKS by the contin uity equation is 1.37cm2. No aortic regurgitation is present. Mitral Valve There is mitral annular calcification. The mitral valve is thickened but opens well. No evidence of m itral valve stenosis. Mild mitral regurgitation. Tricuspid Valve The tricuspid valve is normal in structure. There is no tricuspid valve stenosis. Trace tricuspid reg urgitation. Pulmonic Valve The pulmonary valve is normal in structure. There is no pulmonic valvular stenosis. There is no pulmo tram valvular regurgitation. Great Vessels The aortic root is normal in size. The ascending aorta is moderately dilated. Aortic arch is normal i n caliber. IVC is normal in size and collapses >50% with inspiration. Pericardium There is no pericardial effusion. 2D Dimensions IVSD d PLAX 1.01 cm F: 0.6-1.0 LV Vol A2C d MOD 107.9 mL LVPW d PLAX 1.03 cm F: 0.6 - 1.0 LV Vol A4C d MOD 107.2 mL LVID d PLAX 5.16 cm F: 3.8 - 5.2 LA vol/ BSA A2C s A-L 30.8 mL/m2 LVDs 3.60 cm F: 2.2 - 3.5 LA vol/ BSA A4C s A-L 31.3 mL/m2 Ao Root d 1.96 cm F: 2.7 - 3.3 LA Vol/ BSA Biplane s A-L 31.4 mL/m2 RA Area A4C 11.91 cm2 LA Area A4C s MOD 20.68 cm2 RA Vol/ BSA A4C s A-L 12.7 mL/m2 LA Area A2C s MOD 20.77 cm2 Ao Asc Diam d 3.74 cm F: 2.3 - 3.1 LV EF A4C MOD 59.9 % LV EF Teichholz 56.4 % LV EF A2C MOD 61.2 % LVEF (Colon's) 61.16 % F: 54 - 74 LV EF Biplane MOD 61.2 % LV Volume 83.15 mL F: 46 - 106 SV 68.59 mL LV Volume Index 40.16 mL/m2 F: 29 - 61 SV Index 33.12 mL/m2 LV Vol Biplane MOD 112.2 mL FS 29.65 % M-Mode TAPSE 2.72 cm (M/F) >1.7 LV Diastology MV E' medial 0.083 (>0.07 m/s) E/A Ratio 0.9 LV E/e MED 14.10 (<14) MV E Vmax 1.17 (0.4-1.3 m/s) MV E' lateral 0.067 (>0.1 m/s) MV A Vmax 1.35 (0.4-1.3 m/s) LV E/e LAT 17.45 (<14) MV E/A Ratio 0.86 MV E/E' medial 14.12 MV E/E' lateral 17.45 Aortic Valve LVOT Area 2.88 cm2 AoV Area Vmax 1.37 cm2 LVOT Vmax 1.31 m/s AoV Area/ BSA (Vmax) 0.66 cm2/m2 LVOT Mean Onesimo. 0.84 m/s BROOKS Mean Onesimo. 1.15 cm2 LVOT Peak Grad 6.9 mmHg BROOKS Mean Onesimo. Index 0.56 cm2/m2 LVOT Mean Grad 3.3 mmHg LVOT VTI 0.304 m LVOT Diam s 1.90 cm AoV Vmax 2.76 m/s Velocity Ratio 0.47 AoV Mean Onesimo. 2.09 m/s AoV Peak Grad 30.5 mmHg LVOT SV 87.69 mL AoV Mean Grad 18.7 mmHg AoV VTI 0.598 m AoV Area VTI 1.47 cm2 AoV Area/ BSA (VTI) 0.71 cm/m2 Mitral Valve MV DT 287 (160-240 msec) MR Vmax 5.65 m/s MV PHT 83 msec MR VTI 1.947 m MV Area PHT 2.64 cm2 MR Peak Grad 127.5 mmHg MV VTI 0.449 m MR Mean Grad 89.4 mmHg MV Area VTI 1.95 (4.0-6.0 cm2) MR PISA Radius 0.44 cm MR EROA 0.08 cm2 MR Aliasing Velocity 0.35 m/s MR PISA 1.23 cm2 Pulmonary Valve PV Vmax 1.25 (0.5-1.5 m/s) RVOT Peak Gr. 2.78 mmHg PV Peak Grad 6.3 mmHg RVOT Mean Gr. 1.30 mmHg PV Mean Grad 4.3 mmHg RVOT VTI 0.163 m PV VTI 0.287 m RVOT Vmax 0.83 m/s Tricuspid Valve TR Peak Grad 24.1 mmHg TR Vmax 2.46 m/s RA Pressure 3.00 mmHg RVSP (TR) 27.1 mmHg
== END 2020-03-28 01:19 ==
PROVIDERS: PCP Family Medicine; Visit Provider Nurse Practitioner Family
DX: R06.02 Shortness of breath (principal); I08.0 Rheumatic disorders of both mitral and aortic valves
CPT/HCPCS: 93306

== ENCOUNTER 2020-03-29 13:46 | Outpatient (CLI) | payer MEDICARE, SELFPAY ==
[2020-03-29 14:30] LABS: HCT 36.6 % (36.0-46.0); HGB 11.7 g/dL (11.2-15.7); MCH 29.4 pg (27.0-33.0); MPV 10.2 fL (8.0-11.0); Platelet Count 140 10^3/uL (130-400); RBC 3.98 10^6/uL (3.93-5.22); RDW 18.6 % (11.7-14.6); WBC 6.01 10^3/uL (4.4-10.8)
[2020-03-29 14:46] LABS: LDH 158 U/L (81-234)
[2020-03-29 14:47] LABS: ALT 52 U/L (14-59); AST 53 U/L (15-37); Albumin 3.5 g/dL (3.4-5.0); Alkaline Phosphatase 134 U/L (46-116); Anion Gap 9.2 mmol/L (3-11); BUN 29 mg/dL (7-18); Bilirubin, Total 0.3 mg/dL (0.2-1.0); CO2 25.8 mmol/L (21.0-32.0); CREATININE 1.16 mg/dL (0.55-1.02); Calcium 9.2 mg/dL (8.5-10.1); Chloride 103 mmol/L (98-107); Glucose 166 mg/dL (74-106); Potassium 3.6 mmol/L (3.5-5.1); Sodium 138 mmol/L (136-145); Total Protein 7.1 g/dL (6.4-8.2)
[2020-03-29 14:51] LABS: Hemoglobin A1C 6.6 % (3.8-5.6)
== END 2020-03-29 14:06 ==
PROVIDERS: Internal Medicine Hematology & Oncology; PCP Family Medicine; Visit Provider Nurse Practitioner Family
DX: E11.9 Type 2 diabetes mellitus without complications (principal); R06.2 Wheezing; C88.4 Extranodal marginal zone B-cell lymphoma of mucosa-associated lymphoid tissue [MALT-lymphoma]; C50.911 Malignant neoplasm of unspecified site of right female breast
CPT/HCPCS: 36415; 80053; 85027; 83036; 83615

== ENCOUNTER 2020-04-26 04:33 | Outpatient (CLI) | payer MEDICARE, SELFPAY ==
--- NOTE | 2020-04-26 | DI.US_ITS ---
EXAM: US ABDOMEN CLINICAL HISTORY: CIRRHOSIS NONALCOHOLIC, K74.69 TECHNIQUE: Ultrasound abdomen performed using standard protocol. US US ABDOMEN from 05/05/2018 US US ABDOMEN LIMITED HEPATOLOGY PROTOCOL from 06/10/2019 CT,NM,TMT NM MPI REST STRESS GRP from 02/08/2020 FINDINGS: ABDOMINAL AORTA AND IVC: Visualized portions normal caliber. PANCREAS: Normal where visualized. LIVER: Enlarged liver measuring 20.1 cm in length. Nodular contour of the liver suggesting hepatic c irrhosis. There is a coarsened echotexture. Hepatopedal flow in the Portal Vein. GALLBLADDER: No evidence of cholelithiasis. No evidence of wall thickening. No pericholecystic fluid identified. BILIARY SYSTEM: Common bile duct measures < 7 mm. No intrahepatic biliary ductal dilation. CARRERA'S SIGN: Negative. KIDNEYS: Kidneys are symmetric in size. No evidence of renal calculi. No evidence of hydronephrosis. No renal mass or cyst identified. SPLEEN: 15.3 cm in length. ASCITES: None seen. IMPRESSION: 1. Hepatosplenomegaly. 2. Findings suggestive of hepatic cirrhosis. DATA REPOSITORY:
== END 2020-04-26 04:53 ==
PROVIDERS: PCP Family Medicine; Visit Provider Family Medicine
DX: R16.2 Hepatomegaly with splenomegaly, not elsewhere classified (principal); K74.69 Other cirrhosis of liver
CPT/HCPCS: 76700

== ENCOUNTER 2020-06-13 11:57 | Outpatient (CLI) | payer MEDICARE, SELFPAY ==
--- NOTE | 2020-06-13 10:30 | DI.RAD_ITS ---
EXAM: XR SHOULDER LT COMPLETE 2+V CLINICAL HISTORY: left shoulder pain. TECHNIQUE: 2D digital imaging was performed. COMPARISON: No exams were available for comparison FINDINGS: BONES: No acute fracture is present. No bony destructive lesion is seen. JOINTS: No dislocation present. There is mild spurring at the AC joint undersurface of the acromion as well as glenohumeral joint. Subchondral cysts are seen in the humeral head. There is mild glenoh umeral joint space narrowing. No tendon or joint space calcifications are seen. IMPRESSION: Mild degenerative changes. DATA REPOSITORY: RADIATION DOSE DELIVERED:
== END 2020-06-13 12:17 ==
PROVIDERS: PCP Family Medicine; Referring Provider Family Medicine; Visit Provider Student in an Organized Health Care Education/Training Program
DX: M19.012 Primary osteoarthritis, left shoulder (principal); M25.512 Pain in left shoulder; M75.22 Bicipital tendinitis, left shoulder; X50.9XXA Other and unspecified overexertion or strenuous movements or postures, initial encounter; I10 Essential (primary) hypertension
CPT/HCPCS: 20610; 99204; 99215; 73030; J1030

== ENCOUNTER 2020-09-18 16:10 | Outpatient (REF) | payer OTHER, SELFPAY ==
[2020-09-18 18:27] LABS: COMMENT (LAB VIEW ONLY) 22.17 mg/dL; Microalb ug/mg Crea 29.3 ug/mg Cr
== END 2020-09-18 16:30 ==
LOC: NCHCN 16:10
PROVIDERS: PCP Family Medicine; Visit Provider Family Medicine
DX: E11.9 Type 2 diabetes mellitus without complications (principal)
CPT/HCPCS: 82043; 82570

== ENCOUNTER 2020-10-12 00:53 | Outpatient (CLI) | payer OTHER, SELFPAY ==
--- NOTE | 2020-10-12 10:25 | DI.MAMMO_ITS ---
EXAM: MG MAMMO SCREENING 60 MIN DUR CLINICAL HISTORY: SCREENING, PERSONAL H/O BREAST CA ON RT,Z85.3. TECHNIQUE: Bilateral full field digital CC and MLO mammographic images were obtained with 3D tomosyn thesis and utilizing computer aided detection (CAD). COMPARISON: Prior mammograms dating back to 2010, the most recent being October 2017. This 75 year ol d patient underwent right breast lumpectomy at age 70 followed by radiation therapy.. FINDINGS: Right breast lumpectomy site remains stable. Some dystrophic calcification is again noted. No new m alignant-appearing microcalcification groups in the right breast. No new masses. In the opposite-left breast there are microcalcifications in the lower medial quadrant which are unch anged from prior studies. No new masses. No new malignant-appearing microcalcification groups. No new architectural distortion. IMPRESSION: No radiographic evidence of malignancy. Stable benign findings. Is stable appearance of the right breast lumpectomy site. BI-RADS Category 2 - Benign Findings Breast Density - Category B - Scattered areas of fibroglandular density Breast density Category C or D implies that the patient has dense breast tissue. Dense breast tissue can make it harder to find cancer on a mammogram. Dense breast tissue is also associated with an incr eased risk of breast cancer. This information about the result of the mammogram report was provided to the patient to raise their awareness. Use this report when you speak with the patient about their risks for breast cancer, which includes their family history. At that time, you may recommend additional screening tests (Ultrasoun d or MRI) as these tests may add significant information. A negative radiographic report should not delay biopsy if a dominant or clinically suspicious mass is present. Up to ten percent of cancers are not identified on mammography. A negative report may reinforce clinical impression. Adenosis and dense breasts may obscure an underlying neoplasm. False positive reports average 6 to 10%. Patient will receive a letter notifying them of these results.
== END 2020-10-12 00:54 ==
LOC: DI 00:54
PROVIDERS: PCP Family Medicine; Visit Provider Family Medicine
DX: Z12.31 Encounter for screening mammogram for malignant neoplasm of breast (principal); Z85.3 Personal history of malignant neoplasm of breast
CPT/HCPCS: 77063; 77067

== ENCOUNTER 2020-12-06 09:27 | Outpatient (CLI) | payer OTHER, SELFPAY ==
--- NOTE | 2020-12-06 | DI.RAD_ITS ---
EXAM: XR CHEST 2V PA LATERAL CLINICAL HISTORY: SOB, R06.02. TECHNIQUE: 2D digital imaging was performed. COMPARISON: CR XR CHEST 2V PA LATERAL from 05/11/2018 FINDINGS: Heart size is normal. The mediastinum is not widened. Lungs are clear. No infiltrates nor pleural effusions. IMPRESSION: No acute pulmonary findings. DATA REPOSITORY: RADIATION DOSE DELIVERED:
== END 2020-12-06 09:47 ==
PROVIDERS: PCP Family Medicine; Visit Provider Family Medicine
DX: R06.02 Shortness of breath (principal)
CPT/HCPCS: 71046

== ENCOUNTER 2020-12-06 14:44 | Outpatient (REF) | payer OTHER, SELFPAY ==
[2020-12-06 13:27] LABS: Abs Immature Grans 0.02 10^3/uL (0.0-0.06); Absolute Basophil Count 0.03 10^3/uL (0.0-0.2); Absolute Eosinophil Count 0.27 10^3/uL (0.0-0.7); Absolute Lymphocyte Count 1.27 10^3/uL (1.2-3.4); Absolute Monocyte Count 0.56 10^3/uL (0.1-0.8); Absolute Neutrophil Count 3.36 10^3/uL (1.2-6.7); Basophils % 0.5; Eosinophils % 4.9; HCT 36.8 % (36.0-46.0); HGB 11.9 g/dL (11.2-15.7); Immature Grans % 0.4; MCH 30.5 pg (27.0-33.0); MCHC 32.3 % (32.0-36.0); MCV 94.4 fL (80-95); MPV 11.2 fL (8.0-11.0); Monocytes % 10.2; Nucleated RBC 0 %; Platelet Count 145 10^3/uL (130-400); RDW 13.6 % (11.7-14.6); RDW-SD 46.9 fL; WBC 5.51 10^3/uL (4.4-10.8)
== END 2020-12-06 14:45 | disposition home or self-care (01) ==
LOC: NCHCN 14:44
PROVIDERS: PCP Family Medicine; Visit Provider Family Medicine
DX: R06.02 Shortness of breath (principal)
CPT/HCPCS: 85025

== ENCOUNTER → 2020-12-11 10:47 | Outpatient (BNVA) | payer OTHER, SELFPAY | PROVIDERS: PCP Family Medicine; Referring Provider Family Medicine; Visit Provider Internal Medicine Cardiovascular Disease | DX: I35.0 Nonrheumatic aortic (valve) stenosis (principal); I73.9 Peripheral vascular disease, unspecified; I10 Essential (primary) hypertension; R06.09 Other forms of dyspnea; E11.9 Type 2 diabetes mellitus without complications | CPT/HCPCS: 99203; 99214 ==

== ENCOUNTER 2021-01-08 11:31 | Outpatient (REF) | payer OTHER, MEDICARE, SELFPAY ==
[2021-01-08 15:34] LABS: HCT 37.6 % (36.0-46.0); HGB 12.7 g/dL (11.2-15.7); MCH 32.4 pg (27.0-33.0); MCHC 33.8 % (32.0-36.0); MCV 95.9 fL (80-95); MPV 11.4 fL (8.0-11.0); Platelet Count 163 10^3/uL (130-400); RBC 3.92 10^6/uL (3.93-5.22); RDW 13.5 % (11.7-14.6); RDW-SD 46.4 fL; WBC 5.71 10^3/uL (4.4-10.8)
[2021-01-08 16:17] LABS: ALT 40 U/L (14-59); AST 39 U/L (15-37); Albumin 3.7 g/dL (3.4-5.0); Alkaline Phosphatase 128 U/L (46-116); Anion Gap 9.4 mmol/L (3-11); BUN 25 mg/dL (7-18); Bilirubin, Total 0.6 mg/dL (0.2-1.0); CO2 27.6 mmol/L (21.0-32.0); CREATININE 1.3 mg/dL (0.55-1.02); Calcium 9.3 mg/dL (8.5-10.1); Chloride 105 mmol/L (98-107); Estimated GFR 39.72 (mL/min/1.73m2); Glucose 128 mg/dL (74-106); Potassium 4.4 mmol/L (3.5-5.1); Sodium 142 mmol/L (136-145); TSH (W/Ref FT4) 0.34 uIU/mL (0.36-3.74); Total Protein 6.9 g/dL (6.4-8.2)
[2021-01-08 17:27] LABS: FREE T4 1.06 ng/dL (0.76-1.46)
== END 2021-01-08 11:32 | disposition home or self-care (01) ==
LOC: NCHCN 11:31
PROVIDERS: PCP Family Medicine; Visit Provider Family Medicine
DX: I10 Essential (primary) hypertension (principal); E11.9 Type 2 diabetes mellitus without complications; E03.9 Hypothyroidism, unspecified
CPT/HCPCS: 80053; 85027; 84439; 84443

== ENCOUNTER 2021-01-16 01:21 | Outpatient (CLI) | payer OTHER, MEDICARE, SELFPAY ==
--- NOTE | 2021-01-16 09:00 | ETT_ITS ---
APPROVED REPORT Exam: Exercise Treadmill Patient Location: Out-Patient Room/Bed: Stress Nurse: Hortencia Patterson RN Ordering Provider:HILARY HADLEY, Contact Number: [phone] BMI: 40.02 Baseline Rhythm: Sinus Rhythm Indications: Dyspnea on exertion Medical History Medical History: Hypertension, hyperlipidemia, diabetes, obesity, PVD, PAD, mild aortic stenosis, ricky d, syncope, breast ca, lymphoma, TERRY, SVT, heart murmur, hypothyroidism, nonalcoholic steatohepatitis , CHENG Cardiac Medications: Omeprazole, liraglutide, irbesartan, HCTZ, diltiazem Allergies: ticlopidine, valsartan, tueigcj-yzy-quc reductase inhibitor, lisinopril, sertraline, simva statin, doxazosin, enalapril, glipizine, tamoxifan, amlodipine, atenolol Cardiac Risk Factors: Hypertension, hyperlipidemia, diabetes, obesity, PVD, family hx Previous Cardiac Procedures: None Pretest Chest Pain Characteristics: mild SOB Exercise History: Physicaly active (walks) Physical Disabilities: None Lung Sounds: Clear to auscultation Heart Sounds: Murmur Stress Test Details Test: Exercise stress testing was performed using a Yao protocol. Rest Stress HR Resting HR Supine: 63 bpm Max Heart Rate (APMHR): 143 bpm Resting HR Standin bpm Target HR (85% APMHR): 121 bpm Max HR Achieved: 136 bpm % of APMHR: 95 Recovery HR: 68 bpm HR response to stress: Normal HR response to stress BP Resting BP Supine: 140/66 mmHg Resting BP Standin/66 mmHg Max BP: 168/60 mmHg Recovery BP: 136/64 mmHg BP response to stress: Normal blood pressure response to stress. ECG Resting ECG: Sinus Rhythm Ectopy: None Stress ECG: Sinus Tachycardia ST Change: No significant ST segment changes noted Arrhythmia: Occasional PVCs Recovery ECG: Sinus Rhythm Recovery ST Change: No significant ST segment changes noted Recovery Arrhythmia: Occasional PACs and PVCs Clinical Reason for Termination: Fatigue, Dyspnea Stress Symptoms: General Fatigue, Dyspnea Exercise duration: 4 min9 sec Highest Stage Reached: Stage 2: 2.5 mph at 12% grade. Exercise capacity: 6.03 METs Conway Treadmill Score: 4 Rate Pressure Product: [id number] Stress ECG Conclusion 1. The patient exercised for 4 minutes (6 METS). Exercise was stopped due to fatigue and dyspnea. 2. The patient no symptoms suggestive of ischemia 3. Patient's heart rate and blood pressure augmented appropriately. 4. There is no evidence of ischemia on the ECG portion of the exam. Conway Treadmill Score is 4 which is Moderate risk. Stress Test Summary STAGE Time (mins) Speed (mph) Grade (%) HR BP SYMPTOMS METS Supine 63 140/66 Standing 69 144/66 mild SOB, SpO2 95% 1 3 1.7 10 118 150/62 4.6 2 6 2.5 12 132 moderate SOB, SpO2 95% 7 1 min recovery 111 168/60 3 min recovery 75 152/58 SOB resolved, SpO2 98% 6 min recovery 68 136/64
== END 2021-01-16 01:41 ==
PROVIDERS: PCP Family Medicine; Visit Provider Internal Medicine Cardiovascular Disease
DX: R06.09 Other forms of dyspnea (principal); I10 Essential (primary) hypertension; E78.5 Hyperlipidemia, unspecified; E11.51 Type 2 diabetes mellitus with diabetic peripheral angiopathy without gangrene; E66.9 Obesity, unspecified; Z68.41 Body mass index [BMI] 40.0-44.9, adult; I73.9 Peripheral vascular disease, unspecified; Z82.49 Family history of ischemic heart disease and other diseases of the circulatory system
CPT/HCPCS: 93016; 93018; 93017

== ENCOUNTER 2021-03-12 12:32 | Outpatient (REF) | payer OTHER, SELFPAY ==
[2021-03-12 21:11] LABS: TSH (W/Ref FT4) 1.62 uIU/mL (0.36-3.74)
== END 2021-03-12 12:33 | disposition home or self-care (01) ==
LOC: LBN 12:32
PROVIDERS: PCP Family Medicine; Visit Provider Family Medicine
DX: E03.9 Hypothyroidism, unspecified (principal)
CPT/HCPCS: 84443

== ENCOUNTER 2021-04-18 11:42 | Emergency (ER) | payer OTHER, SELFPAY ==
[2021-04-18] VITALS (25 sets, daily range): BP systolic 129–188; BP diastolic 56–103; PULSE 70–95; RESP 15–26; TEMP 36.4; O2SAT 92–96
--- NOTE | 2021-04-18 11:30 | RT.EKG_ITS ---
APPROVED REPORT Exam: Resting ECG Reason for Exam: sob Patient Location: E HR:82 bpm ECG Measurements Heart Rate 82 AXIS VT [id number] P [id number] QRSd 79 QRS 61 QT 384 T 29 QTc 450 Conclusion Atrial fibrillation...? atrial activity
--- NOTE | 2021-04-18 11:49 | W.ED.GENAD ---
Discharge Plan Disposition Patient Disposition: HOME Condition: Stable Discharge Details Clinical Impression: A-fib, Shortness of breath, Acute UTI Primary Care Provider: Jena Mitchell ED Provider: Lenny Massey Home Meds and New Rx's Prescriptions: New levofloxacin 750 mg tablet 750 mg PO DAILY Qty: 5 RF: 0 furosemide [Lasix] 20 mg tablet 20 mg PO DAILY Qty: 20 RF: 0 Continued irbesartan 300 mg tablet 300 mg PO DAILY RF: 0 gabapentin 100 mg capsule 100 mg PO QHS RF: 0 diltiazem HCl [Cartia XT] 300 MG capsule,extended release 24hr 300 mg PO DAILY RF: 0 escitalopram oxalate 20 MG tablet 20 mg PO DAILY RF: 0 hydrochlorothiazide 12.5 MG tablet 25 mg PO DAILY RF: 0 omeprazole 40 MG capsule,delayed release(DR/EC) 40 mg PO DAILY RF: 0 levothyroxine 150 mcg Capsule 150 mcg PO DAILY RF: 0 diphenhydramine-acetaminophen [Acetaminophen PM] 25-500 mg Tablet RF: 0 liraglutide 0.6 mg/0.1 mL (18 mg/3 mL) pen injector 1.8 mg subcut HS RF: 0 Discharge Instructions Instructions: A-fib (Atrial Fibrillation) (ED), Urinary Tract Infection in Women (ED) Additional Instructions: take the furosemide daily until you see your primary care provider if you feel more ill, have severe worsening symptoms or fevers return to the emergency department discuss starting a blood thinner with your primary care provider for atrial fibrillation Medical Decision Making 76 yo female with hx of aortic stenosis, has had dyspnea with exertion for over a year, t2dm, pvd, gerd, hld, htn, nonalcoholic liver disease, who comes in with dyspnea with exertion that she feels worsened over the past two weeks after having diarrhea that has resolved. She denies chest pain, fevers, cough. She went to express care and they relayed her room air saturation was 88% and was sent here. She is in no distress on the stretcher speaking in full sentences with no visible respiratory distress and room air saturation here without therapy prehospital is 95%. She has no jvd, no wheezing on lung exam. Bedside u/s shows normal appearing EF no pericardial effusion, does have b lines bilaterally. Suspect pulmonary edema based on symptoms and u/s findings. Will obtain labs including cbc, cmp, troponin, d dimer as she is wells score low and chest xray and give a dose of lasix. patient stable, labs unremarkable other than urine suspicious for uti and d dimer over 1000, will obtain cta for pe pt remains stable ambulating unassisted without dyspnea or hypoxia and appears well. CT on my read shows pleural effusions. Has nitrites and leuks but denies urinary symptoms. AWaiting cta read cta shows pleural effusions and ground glass opacities no pe per Dr. Hodgson. HAs not had a cough or fever so seems unlikely pneumonia. She is covid negative. She remains stable and appears well. Discussed results with patient and she would like to go home which I feel is reasonable given stable vital signs and lack of chest pain. Do not feel repeat troponin indicated as had over a week of symptoms. Will prescribe her lasix until she sees her pcp and levofloxacin for her possible uti. I did discuss with her that she is in afib and will need to be on anticoagulation. She would like to discuss this with her pcp. She will follow up with her pcp and return precautions given Differential Diagnosis Differential Diagnosis: chf, afib, anemia, electrolyte abnormality Medical Records Medical records reviewed: Yes I reviewed the patient's medical records. Imaging Data Radiologic Study: Attestation: I personally reviewed and interpreted this imaging study as follows: Imaging: X-Ray My impression: no acute findings Radiologic Study #2: Attestation: I personally reviewed and interpreted this imaging study as follows: Imaging: CT Scan My impression: pleural effusions Lab Data Lab results reviewed: Yes I reviewed the patient's lab results. ECG Data Attestation: I personally reviewed and interpreted this ECG (s) as follows: Prior ECG tracings: not available for review Interpretation: afib rate of [address] t wave ischemic findings HPI General Mode of arrival: EMS. Date/Time Provider Initiated Documentation: 04/18/21 11:43. Limitations to Documentation: no limitations. Information obtained by: patient. History of Present Illness 76 year old F presents to the emergency department with the chief complaint of dyspnea, described as moderate, Patient reports no radiation. Patient started experiencing this week(s) (3) and it has been intermittent. Rest improves symptom(s), Movement worsens symptoms . Patient notes denies cough. Patient did receive the following treatments prior to arrival, none Related Data Home Medications Medication Instructions Recorded Confirmed omeprazole 40 mg PO DAILY 09/23/13 04/18/21 diltiazem HCl [Cartia XT] 300 mg PO DAILY tab-cap 02/29/16 04/18/21 escitalopram oxalate 20 mg PO DAILY tab-cap 02/29/16 04/18/21 hydrochlorothiazide 25 mg PO DAILY tab-cap 02/29/16 04/18/21 liraglutide 1.8 mg SUBCUT HS 05/05/18 04/18/21 levothyroxine 150 mcg PO DAILY 07/30/18 04/18/21 diphenhydramine-acetaminophen tab 03/31/19 06/13/20 [Acetaminophen PM] irbesartan 300 mg tablet 300 mg PO DAILY 06/13/20 04/18/21 gabapentin 100 mg capsule 100 mg PO QHS 12/11/20 04/18/21 furosemide [Lasix] 20 mg PO DAILY #20 tab 04/18/21 levofloxacin 750 mg PO DAILY #5 tab 04/18/21 Previous Rx's Medication Instructions Recorded furosemide [Lasix] 20 mg PO DAILY #20 tab 04/18/21 levofloxacin 750 mg PO DAILY #5 tab 04/18/21 Allergies Allergy/AdvReac Type Severity Reaction Status Date / Time tamoxifen Allergy Intermediate liver Verified 04/18/21 11:52 complications amlodipine AdvReac Intermediate leg pain Verified 04/18/21 11:52 atenolol AdvReac Intermediate leg pain Verified 04/18/21 11:52 doxazosin AdvReac Intermediate leg pain Verified 04/18/21 11:52 enalapril AdvReac Intermediate leg pain Verified 04/18/21 11:52 glipizide AdvReac Intermediate body aches Unverified 04/18/21 11:52 lisinopril AdvReac Intermediate leg pain Verified 04/18/21 11:52 sertraline AdvReac Intermediate leg pain Verified 04/18/21 11:52 simvastatin [From Zocor] AdvReac Intermediate leg pain Verified 04/18/21 11:52 [id number]-Wkt Reductase AdvReac Intermediate leg pains Unverified 04/18/21 11:52 Inhibitor ticlopidine AdvReac Intermediate leg pain Verified 04/18/21 11:52 valsartan AdvReac Intermediate leg pain Verified 04/18/21 11:52 General JUANITA: 4 Review of Systems All systems reviewed & are unremarkable except as noted in HPI and below Constitutional Constitutional: Denies chills, Denies fever(s) and Denies weakness Cardiovascular Cardiovascular: Denies chest pain Respiratory Respiratory: Denies cough Gastrointestinal Gastrointestinal: Denies abdominal pain, Denies nausea and Denies vomiting Musculoskeletal Musculoskeletal: Denies joint swelling Neurologic Neurologic: Denies weakness [facility] Medical History (Updated 04/18/21 @ 14:19 by Lenny Massey MD) Aortic stenosis Breast Cancer Cirrhosis of liver not due to alcohol Diabetes mellitus Dyslipidemia Dyspnea on exertion GERD (gastroesophageal reflux disease) History of syncope Hypertension Hypothyroidism Lymphoma TERRY (obstructive sleep apnea) PVD (peripheral vascular disease) Renal artery stenosis SVT (supraventricular tachycardia) Syncope Surgical History Excision of neck mass Nail removal (toe) Partial mastectomy with sentinal node Rotator Cuff Repair Social History Smoking/Tobacco Use Status: Never Smoking risk assessment performed?: Yes Alcohol Intake: never Drug use: Never Substance use type: does not use Do you feel safe in your relationship?: Yes Additional Social history: with 4 children. 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 Denies alcohol or tobacco use. Female Reproductive History Menstrual Menopause type: natural Exam Const General: no acute distress Orientation: alert HENMT Head: normal to inspection Ears: external ears normal General nose exam: external nose normal Mouth: moist mucous membranes Eyes General: appearance normal, both eyes and all related structures Neck Neck: normal visual inspection Resp Effort & Inspection: able to speak in complete sentences and no audible wheezes Cardio Rate: regular rate Skin General skin exam: no rashes or lesions noted Neuro General: patient alert and patient oriented x3 Extrem General: normal to inspection Psych Mental Status: mental status grossly normal
--- NOTE | 2021-04-18 12:00 | DI.RAD_ITS ---
Exam(s) XR PORTABLE CHEST AP EXAM: XR PORTABLE CHEST AP CLINICAL HISTORY: shortness of breath. TECHNIQUE: 2D digital imaging was performed. COMPARISON: CR XR CHEST 2V PA LATERAL from 05/11/2018 CR XR CHEST 2V PA LATERAL from 05/11/2018 CR XR CHEST 2V PA LATERAL from 12/06/2020 FINDINGS: Heart size is upper normal. The mediastinum is not widened. There appears to be a pulmonary venous hypertension pattern. There also appears to be blunting of le ft costophrenic angle which may indicate a small pleural effusion. Also slightly increased markings in the left lower lobe retrocardiac region. IMPRESSION: Findings as above. Possible early pulmonary edema. Recommend nonportable PA and lateral views when clinically possible. DATA REPOSITORY: RADIATION DOSE DELIVERED: All CT scans at this facility use at least one of these dose optimization techniques: automated exposure control; mA and/or kV adjustment per patient size (includes targeted e xams where dose is matched to clinical indication); or iterative reconstruction.
[2021-04-18 12:19] LABS: Abs Immature Grans 0.07 10^3/uL (0.0-0.06); Absolute Basophil Count 0.05 10^3/uL (0.0-0.2); Absolute Eosinophil Count 0.26 10^3/uL (0.0-0.7); Absolute Lymphocyte Count 1.31 10^3/uL (1.2-3.4); Absolute Monocyte Count 0.67 10^3/uL (0.1-0.8); Absolute Neutrophil Count 4.43 10^3/uL (1.2-6.7); Basophils % 0.7; Eosinophils % 3.8; HCT 36.2 % (36.0-46.0); HGB 11.3 g/dL (11.2-15.7); Lymphocytes % 19.3; MCH 29.3 pg (27.0-33.0); MCHC 31.2 % (32.0-36.0); MCV 93.8 fL (80-95); MPV 10.7 fL (8.0-11.0); Monocytes % 9.9; Neutrophils % 65.3; Nucleated RBC 0 %; Platelet Count 243 10^3/uL (130-400); RBC 3.86 10^6/uL (3.93-5.22); RDW 14.2 % (11.7-14.6); RDW-SD 47.8 fL; WBC 6.79 10^3/uL (4.4-10.8)
[2021-04-18] MEDS: Furosemide 20 MG/2 ML VIAL IVP (12:19)
[2021-04-18 12:20] LABS: Bilirubin Negative (Negative); Blood Negative (Negative); Clarity Sl Cloudy (Clear); Glucose Negative (Negative); Ketones Negative (Negative); Leukocyte Esterase Moderate (Negative); Nitrite Positive (Negative); Specific Gravity 1.025 (1.005-1.025); Urobilinogen 0.2 EU/dL (Up TO 0.2); pH 6.5 (5-8)
[2021-04-18] MEDS: Normal Saline Flush 10 ML SYR IVP (12:20)
[2021-04-18 12:27] LABS: Bacteria Many HPF (Negative); C & S Indicated? No/Sq. Contamination; Casts Negative LPF (Negative); Crystals Negative HPF (Negative); Epithelial Cells Many HPF (Negative); Mucus Negative (Negative); RBC 0-2 HPF (0-2); WBC >50 HPF (0-5)
[2021-04-18 12:31] LABS: Magnesium 2.2 mg/dL (1.8-2.4)
[2021-04-18 12:31] LABS: Source Nasal/Nares
[2021-04-18 12:41] LABS: ALT 30 U/L (14-59); AST 36 U/L (15-37); Albumin 3.3 g/dL (3.4-5.0); Alkaline Phosphatase 194 U/L (46-116); BUN 22 mg/dL (7-18); Bilirubin, Direct 0.2 mg/dL (0.0-0.2); Bilirubin, Total 0.6 mg/dL (0.2-1.0); CREATININE 1.1 mg/dL (0.55-1.02); Calcium 9.1 mg/dL (8.5-10.1); Chloride 105 mmol/L (98-107); Estimated GFR 48.04 (mL/min/1.73m2); Glucose 142 mg/dL (74-106); NT-proBNP 2550 pg/mL (<300); Potassium 4.1 mmol/L (3.5-5.1); Sodium 142 mmol/L (136-145); TSH (W/Ref FT4) 7.67 uIU/mL (0.36-3.74); Total Protein 7.5 g/dL (6.4-8.2); Troponin I < 0.05 ng/mL (<0.06)
[2021-04-18 12:59] LABS: D-Dimer 1529 ng/mlFEU (<500)
[2021-04-18] MEDS: cefTRIAXone 2 GM/50 ML BAG IVPB (13:04)
[2021-04-18 13:06] LABS: FREE T4 1.12 ng/dL (0.76-1.46)
[2021-04-18] MEDS: Omnipaque 350 MG/ML 100 ML BTL IJ (13:31)
--- NOTE | 2021-04-18 13:42 | DI.CT_ITS ---
Exam(s) CT CHEST PE CTA EXAM: CT CHEST PE CTA CLINICAL HISTORY: dyspnea, elevated d dimer. TECHNIQUE: Imaging Protocol: CT angiography of the chest was performed using pulmonary embolus jeanne col. Multi planar reconstructions were performed. CONTRAST MATERIAL: Intravenous: Omnipaque 350 Contrast volume: 100 cc FINDINGS: CHEST: PULMONARY ARTERIES: There are no intraluminal filling defects to suggest acute pulmonary emboli. LUNGS: There moderate-sized bilateral pleural effusions now evident. There are no pleural effusions evident on the April 2018 CT scan.. There is bilateral mosaic pattern in both lung mcclendon probab ly an element of air trapping although cannot exclude ground-glass infiltrates. No significant focal findings in the trachea and mainstem bronchi. MEDIASTINUM: There is no hilar nor mediastinal adenopathy. Thyroid gland appears diminutive.Anterior to the innominate vein in the immediate retrosternal region there is a small well-defined 3 x 2 kassidy meter bubble. This does not appear to be intraluminal. CARDIAC: Heart size is upper normal. There is no pericardial effusion.Thoracic aorta is atherosclero tic but not enlarged. No dissection evident. There is no significant shift of the interventricular septum. PARTIALLY VISUALIZED UPPERMOST ABDOMEN: Liver appears cirrhotic OSSEOUS: No significant osseous lesions.. IMPRESSION: 1. No evidence of acute pulmonary emboli. No evidence of pulmonary infarction. 2. However, there are moderate size bilateral pleural effusions (which were not evident on the upperm ost images of an abdominal CT scan performed April 2018). 3. There is bilateral mosaic pattern consistent with air trapping and possible subtle ground-glass in filtrates.. 4. Lower most images reveal a cirrhotic appearing liver. RADIATION DOSE DELIVERED: 550.41mGy.cm Total DLP DATA REPOSITORY: All CT scans at this facility are submitted to the National Radiology Data Registry (NRDR) Dose Index Registry (DIR) with the [employer] (ACR). RADIATION OPTIMIZATION: All CT scans at this facility use at least one of these dose optimization te chniques: automated exposure control; mA and/or kV adjustment per patient size (includes targeted exa ms where dose is matched to clinical indication); or iterative reconstruction.
[2021-04-18 13:47] LABS: COVID-19 PCR Negative (Negative)
--- NOTE | 2021-04-18 15:11 | NUR.NOTE ---
Referral given verbally by phone to [facility], for new afib, CHF, to be seen ABENA. Dodie Thomas Nursing Note:
== END 2021-04-18 15:15 | disposition home or self-care (01) ==
PROVIDERS: Emergency Provider Emergency Medicine; PCP Family Medicine
DX: I48.91 Unspecified atrial fibrillation (principal); R06.02 Shortness of breath; N39.0 Urinary tract infection, site not specified; B96.20 Unspecified Escherichia coli [E. coli] as the cause of diseases classified elsewhere; R79.1 Abnormal coagulation profile; Z20.822 Contact with and (suspected) exposure to COVID-19; Z03.818 Encounter for observation for suspected exposure to other biological agents ruled out
CPT/HCPCS: 36415; 51701; 71275; 80053; 87077; 87635; 93005; 96365; 96375; 99285; 71045; 81003; 81015; 82248; 83735; 83880; 84439; 84443; 84484; 85025; 85379; 87086; 87186; 93010; J1941; J3490

== ENCOUNTER 2021-04-25 12:13 | Outpatient (REF) | payer OTHER, SELFPAY ==
[2021-04-25 14:55] LABS: Anion Gap 6.7 mmol/L (3-11); BUN 27 mg/dL (7-18); CO2 27.3 mmol/L (21.0-32.0); CREATININE 1.2 mg/dL (0.55-1.02); Calcium 9.1 mg/dL (8.5-10.1); Chloride 105 mmol/L (98-107); Estimated GFR 43.45 (mL/min/1.73m2); Glucose 161 mg/dL (74-106); NT-proBNP 300 pg/mL (<300); Potassium 4.3 mmol/L (3.5-5.1); Sodium 139 mmol/L (136-145); TSH (W/Ref FT4) 3.57 uIU/mL (0.36-3.74)
== END 2021-04-25 12:14 | disposition home or self-care (01) ==
LOC: NCHCN 12:13
PROVIDERS: PCP Family Medicine; Visit Provider Family Medicine
DX: I48.0 Paroxysmal atrial fibrillation (principal); I51.9 Heart disease, unspecified; G47.00 Insomnia, unspecified; R51.9 Headache, unspecified; R06.09 Other forms of dyspnea; E03.9 Hypothyroidism, unspecified
CPT/HCPCS: 80048; 83880; 84443

== ENCOUNTER 2021-05-04 01:21 | Outpatient (CLI) | payer OTHER, SELFPAY ==
--- NOTE | 2021-05-21 08:44 | ZIOP_ITS ---
Date of service: 05/21/21 Time of Service: 08:44 14 Day Architectural Inspector Referring Provider:: Jena Mitchell Indications:: Atrial fibrillation Note: This is a 14-day monitor reportedly ordered for atrial fibrillation The predominant rhythm was sinus, with an average heart rate of 80. Minimum was 60, maximum 146. There were no supraventricular dysrhythmias. There was no atrial fibrillation. There were occasional ventricular ectopic beats. There were rare ventricular couplets. There was no ventricular tachycardia There was no high-grade AV block. There were no pauses greater than 3 seconds Patient symptoms did not correspond to any dysrhythmia
== END 2021-05-04 01:22 | disposition home or self-care (01) ==
LOC: RT 01:21
PROVIDERS: PCP Family Medicine; Visit Provider Family Medicine
DX: I48.91 Unspecified atrial fibrillation (principal)
CPT/HCPCS: 93246

== ENCOUNTER 2021-05-17 02:14 | Outpatient (CLI) | payer OTHER, SELFPAY ==
[2021-05-17] MEDS: Albuterol HFA 18 GM 200 PUFF INH IH (16:07)
[2021-05-17] MEDS: Inhaler, Assist Device 1 EACH MC (16:08)
--- NOTE | 2021-05-21 13:14 | W.PFT ---
Date of service: 05/17/21 Time of Service: 15:12 Pulmonary Function Test Result Requesting Provider Duchene Indications: Dyspnea on exertion Interpretation Spirometry: There is no airflow limitation. There is no significant bronchodilator response. Lung Volumes: Lung volumes are normal. Diffusion Capacity: The diffusion is normal. Airway Pressure: Airways resistance is normal. Impression Normal pulmonary function test Clinical Correlation therefore is recommended.
== END 2021-05-17 02:15 | disposition home or self-care (01) ==
LOC: RT 02:15
PROVIDERS: PCP Family Medicine; Visit Provider Student in an Organized Health Care Education/Training Program
DX: R06.09 Other forms of dyspnea (principal)
CPT/HCPCS: 94060; 94726; 94729

== ENCOUNTER 2021-05-21 08:44 | Outpatient (CLI) | payer OTHER, SELFPAY | END 2021-05-21 08:45 | LOC: CARDO 05-22 10:50 | PROVIDERS: PCP Family Medicine; Referring Provider Family Medicine; Visit Provider Internal Medicine Cardiovascular Disease | DX: I48.91 Unspecified atrial fibrillation (principal); I49.3 Ventricular premature depolarization | CPT/HCPCS: 93248 ==

== ENCOUNTER → 2021-05-28 01:04 | Outpatient (CLI) | payer OTHER, SELFPAY ==
--- NOTE | 2021-05-28 14:32 | DI.US_ITS ---
APPROVED REPORT EXAM: Comprehensive 2D, Doppler, and color-flow Echocardiogram Patient Location: Out-Patient Gis Scientist: Vinita Ge RDCS (AE) Indications: A Fib, Mitral Regurgitation, Aortic stenosis, Concern for shunt Echo Enhancing Agent Indication: Rule out Shunt Agent(s) / Amount(s) Used: Agitated Saline 30.0 cc Comments: Contrast study was performed with 3 IV injections of 10ccs of agitated normal saline, at re st, with cough and post valsalva maneuver. Negative contrast study for shunt flow. Other Information Study Quality: Good Conclusion Normal left ventricular wall thickness and chamber size. Estimated ejection fraction is 60 to 65%. There are no segmental wall motion abnormalities Normal right ventricular size and systolic function Both atria are normal in size. There is no evidence of interatrial shunting with agitated saline Sclerotic trileaflet aortic valve. There is mild aortic stenosis. Calculated aortic valve area is 1 .3 cm??. There is trace aortic regurgitation Mild mitral annular calcification. Thickened mitral leaflets. Mild mitral regurgitation Normal tricuspid valve with trace regurgitation. Estimated right ventricular systolic pressure is no rmal, 17 mmHg Mildly dilated ascending aorta measuring 3.61 cm Wall motion Left Ventricle The left ventricle is normal size. The left ventricular systolic function is normal. The left ventric ular ejection fraction is within the normal range. There is normal left ventricular wall thickness. T here is normal LV segmental wall motion. There is no ventricular septal defect visualized. LVEF is 60 -65%. Right Ventricle The right ventricle is normal size. The right ventricular systolic function is normal. The RVSP is 17 .2mmHg. Atria The left atrium size is normal. The right atrium size is normal. The interatrial septum is intact wit h no evidence for an atrial septal defect. Saline bubble contrast intravenous injection does not demo nstrate PFO. Aortic Valve Aortic valve is calcified. Aortic valve is trileaflet. Mild to moderate aortic stenosis. Peak aortic valve gradient is 36.9mmHg. Highest mean aortic valve gradient is 18.9mmHg. Calculated BROOKS by the con tinuity equation is 1.31cm2. Trace aortic regurgitation. Mitral Valve Mild mitral annular calcification. No evidence of mitral valve stenosis. Mild mitral regurgitation. Tricuspid Valve The tricuspid valve is normal in structure. There is no tricuspid valve stenosis. Trace tricuspid reg urgitation. Pulmonic Valve The pulmonary valve is normal in structure. There is no pulmonic valvular stenosis. Trace pulmonic re gurgitation. Great Vessels The aortic root is normal in size. The ascending aorta is moderately dilated.3.61 cm Aortic arch is n ormal in caliber. IVC is normal in size and collapses >50% with inspiration. Pericardium There is no pericardial effusion. 2D Dimensions IVSD d PLAX 0.70 cm F: 0.6-1.0 LV Vol A2C d MOD 100.9 mL LVPW d PLAX 0.70 cm F: 0.6 - 1.0 LV Vol A4C d MOD 124.7 mL LVID d PLAX 5.04 cm F: 3.8 - 5.2 LA vol/ BSA A2C s A-L 30.7 mL/m2 LVDs 3.35 cm F: 2.2 - 3.5 LA vol/ BSA A4C s A-L 27.1 mL/m2 Ao Root d 2.96 cm F: 2.7 - 3.3 LA Vol/ BSA Biplane s A-L 31.2 mL/m2 RA Area A4C 13.70 cm2 LA Area A4C s MOD 18.84 cm2 RA Vol/ BSA A4C s A-L 16.2 mL/m2 LA Area A2C s MOD 21.63 cm2 Ao Asc Diam d 3.61 cm F: 2.3 - 3.1 LV EF A4C MOD 59.9 % LV EF Teichholz 61.1 % LV EF A2C MOD 65.3 % LVEF (Colon's) 63.27 % F: 54 - 74 LV EF Biplane MOD 63.3 % LV Volume 90.63 mL F: 46 - 106 SV 76.64 mL LV Volume Index 45.08 mL/m2 F: 29 - 61 SV Index 38.06 mL/m2 LV Vol Biplane MOD 121.1 mL FS 32.85 % M-Mode TAPSE 2.40 cm (M/F) >1.7 LV Diastology MV E' medial 0.081 (>0.07 m/s) E/A Ratio 0.9 LV E/e MED 13.00 (<14) MV E Vmax 1.06 (0.4-1.3 m/s) MV E' lateral 0.078 (>0.1 m/s) MV A Vmax 1.20 (0.4-1.3 m/s) LV E/e LAT 13.50 (<14) MV E/A Ratio 0.87 MV E/E' medial 13.01 MV E/E' lateral 13.50 Aortic Valve LVOT Area 3.02 cm2 AoV Area Vmax 1.31 cm2 LVOT Vmax 1.32 m/s AoV Area/ BSA (Vmax) 0.65 cm2/m2 LVOT Mean Onesimo. 0.86 m/s BROOKS Mean Onesimo. 1.33 cm2 LVOT Peak Grad 6.9 mmHg BROOKS Mean Onesimo. Index 0.66 cm2/m2 LVOT Mean Grad 3.5 mmHg AR DT 1269 msec LVOT VTI 0.293 m AR PHT 368 msec LVOT Diam s 1.95 cm AoV Vmax 3.04 m/s Velocity Ratio 0.43 AoV Mean Onesimo. 1.96 m/s AoV Peak Grad 36.9 mmHg LVOT SV 88.38 mL AoV Mean Grad 18.9 mmHg AoV VTI 0.662 m AoV Area VTI 1.34 cm2 AoV Area/ BSA (VTI) 0.66 cm/m2 Mitral Valve MV DT 291 (160-240 msec) MR Vmax 5.01 m/s MV PHT 85 msec MR VTI 1.147 m MV Area PHT 2.60 cm2 MR Peak Grad 100.4 mmHg MV VTI 0.489 m MR Mean Grad 72.3 mmHg MV VTI Annulus 0.507 m MR PISA Radius 0.45 cm MV Area VTI 1.87 (4.0-6.0 cm2) MR EROA 0.09 cm2 MR Aliasing Velocity 0.35 m/s MR PISA 1.27 cm2 Pulmonary Valve PV Vmax 1.36 (0.5-1.5 m/s) RVOT Peak Gr. 2.66 mmHg PV Peak Grad 7.5 mmHg RVOT Mean Gr. 1.40 mmHg PV Mean Grad 3.6 mmHg RVOT VTI 0.158 m PV VTI 0.232 m RVOT Vmax 0.81 m/s Tricuspid Valve TR Peak Grad 14.2 mmHg TR Vmax 1.89 m/s RA Pressure 3.00 mmHg RVSP (TR) 17.2 mmHg
== END ==
PROVIDERS: PCP Family Medicine; Visit Provider Family Medicine
DX: I48.91 Unspecified atrial fibrillation (principal); I08.0 Rheumatic disorders of both mitral and aortic valves; I77.810 Thoracic aortic ectasia
CPT/HCPCS: 93306

== ENCOUNTER 2021-06-06 10:04 | Inpatient (IN) | payer OTHER, SELFPAY ==
[2021-06-06] VITALS (89 sets, daily range): BP systolic 110–157; BP diastolic 23–61; PULSE 69–103; RESP 13–33; TEMP 36.4–36.6; O2SAT 95–99
--- NOTE | 2021-06-06 10:00 | RT.EKG_ITS ---
APPROVED REPORT Exam: Resting ECG Reason for Exam: dizzy Patient Location: E HR:78 bpm ECG Measurements Heart Rate 78 AXIS MA 176 P 68 QRSd 84 QRS 58 QT 392 T 50 QTc 446 Conclusion Sinus rhythm...normal P axis, V-rate 60- 99. Sinus. No STEMI. I have reviewed and interpreted ECG and agree with software generated interpretation.
--- NOTE | 2021-06-06 10:34 | ED.GENADUL_ITS ---
Discharge Plan Disposition Patient Disposition: [facility] INPATIENT Condition: Stable Discharge Details Clinical Impression: Acute anemia, Lower GI bleed, Melena Admit Date/Time: 06/06/21 13:58 Admit Provider: Justina Ibarra Attending Provider: Justina Ibarra Primary Care Provider: Jena Mitchell ED Provider: Celi Golden Discharge Data Discharge Date/Time-TO BE ENTERED AT DEPARTURE: 06/06/21 16:17 Medical Decision Making 76-year-old female with a history of hypertension, hyperlipidemia, diabetes, GERD, liver cirrhosis, hypothyroidism, sleep apnea, recently diagnosed Afib on Xarelto presents for dizziness and weakness for the past 2 weeks. She was seen in the ED at the end of March for dyspnea on exertion and found to have likely acute CHF exacerbation and UTI which was treated with diuretics and antibiotics. She followed up with pulmonology who agreed this is likely volume overload. She had an outpatient echocardiogram on 05/28 which noted: Conclusion Normal left ventricular wall thickness and chamber size. Estimated ejection fraction is 60 to 65%. There are no segmental wall motion abnormalities Normal right ventricular size and systolic function Both atria are normal in size. There is no evidence of interatrial shunting with agitated saline Sclerotic trileaflet aortic valve. There is mild aortic stenosis. Calculated aortic valve area is 1.3 cm??. There is trace aortic regurgitation Mild mitral annular calcification. Thickened mitral leaflets. Mild mitral regurgitation Normal tricuspid valve with trace regurgitation. Estimated right ventricular systolic pressure is normal, 17 mmHg Mildly dilated ascending aorta measuring 3.61 cm EKG today notes a rate of 78, sinus, no STEMI and nondiagnostic. Vitals within normal limits. Abdomen soft but the abdomen soft but diffusely tender. Rectal exam appears normal externally but notes maroon color which is heme positive. Labs reviewed. White blood cell count 7. Hemoglobin 6.9, down trended from 11.3 on 04/18/21. Hematocrit 22.8. Platelets 207. Troponin negative. CT imaging reviewed and negative for acute findings. There is no evidence of esophageal varices. Patient states she had complained to Dr. 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 A CT neck was also obtained here today per patient request. Discussion with blood bank notes that patient antibody screen for the type and screen was positive, revealing agglutination similar to what would be seen with a h/o recent transfusion which patient denies. They are going to discuss with the pathologist and the [place] and may have to wait 3 to 4 hours for blood transfusion. Case discussed with case discussed with hospitalist who accepts patient for admission. Medical Records Medical records reviewed: Yes I reviewed the patient's medical records. Imaging Data Radiologic Study: Radiologist's impression: CT NECK WO CLINICAL HISTORY: h/o parotid cancer, assess for mass. TECHNIQUE: Imaging Protocol: Axial CT angiography was performed with multi- slice acquisition and multi-planar and/or 3D reconstructions. CONTRAST MATERIAL: Intravenous: Omnipaque 350 Contrast volume:structured data in ml COMPARISON: CT CT neck w from 12/04/2018 FINDINGS: The tissues of the nasopharynx are symmetrical. No significant findings in the oropharynx and hypopharynx. Valleculae appear unremarkable as does the free edge of the epiglottis. No obvious masses the level of the aryepiglottic folds and vocal cords and subglottic airway appears unremarkable. Thyroid gland is diminutive. Left parotid gland appears unremarkable. Some scarring is noted around the right parotid gland. No calculi nor distinct masses in the parotid glands. No masses in the submandibular glands. Lymph nodes: There is no obvious lymphadenopathy in the neck and supraclavicular regions. Osseous: No significant osseous lesions evident. Visualized paranasal sinuses: Clear. No mucosal thickening or fluid levels. IMPRESSION: 1. There appears to be evidence of prior surgery in the region of the right parotid gland. No obvious masses evident. Also no lymphadenopathy seen. CT CHEST/ABD/PEL W CLINICAL HISTORY: short of breath, abdominal pain, rectal bleeding. TECHNIQUE: Imaging Protocol: Axial computed tomography images with coronal and sagittal reformatted images were created and reviewed CONTRAST MATERIAL: Intravenous: Omnipaque 350 Contrast volume:100 ml Oral: None COMPARISON: CT CT CHEST PE CTA from 04/18/2021 FINDINGS: CHEST: LUNGS: The bilateral pleural effusions which were evident on the CT scan of 04/18/2021 have resolved. There presently no pleural effusions. There are no confluent pulmonary infiltrates. Also no metastatic appearing nodules in either lung field.. No focal findings in the trachea and mainstem bronchi. MEDIASTINUM: There is no hilar nor mediastinal adenopathy. CARDIAC: Heart size is normal. There is no pericardial effusion.Caliber of the ascending thoracic aorta and aortic arch are normal. The descending thoracic aorta is atherosclerotic with upper normal diameter. OSSEOUS: No significant osseous lesions.. ABDOMEN: There is no ascites. LIVER: Liver is slightly prominent and is cirrhotic in appearance. However, there are no discrete focal hepatic lesions identified GALLBLADDER/BILIARY: No obvious gallbladder pathology. CBD is not dilated. PANCREAS: No evidence of pancreatic mass nor dilatation of the pancreatic duct. SPLEEN: Spleen is upper normal size. There is an exophytic nodule off the posterior aspect the spleen which measures 12 x 12 millimeters. Probably a splenule. ADRENALS: There are no significant adrenal masses. KIDNEYS: No calculi nor hydronephrosis. No solid renal masses. No cysts evident. ABDOMINAL AORTA: Calcified and atherosclerotic. Maximum diameter 2.5 cm LYMPH NODES: There is no retroperitoneal nor paraaortic adenopathy. ABDOMINAL WALL: Small fat containing anterior abdominal wall umbilical hernia. No bowel loops therein. No bowel obstruction. GI: There is no evidence of bowel obstruction. PELVIS: LYMPH NODES: There is no intrapelvic nor inguinal adenopathy. GI: No evidence of appendicitis.There are sigmoid diverticuli. There is no evidence of diverticulitis. URINARY BLADDER: No calculi nor masses evident REPRODUCTIVE: Uterus and adnexal regions appear age-appropriate. No abnormal fluid in pelvis OSSEOUS: Left hip prosthesis. IMPRESSION: 1. Compared to the CT scan of March 2021 the previously present bilateral pleural effusions are no longer present. There are no metastatic appearing nodules in either lung field. 2. Enlarged and cirrhotic liver. Spleen size upper normal. No ascites. 3. Sigmoid diverticuli but no evidence of acute diverticulitis. 4. Left hip prosthesis Lab Data Lab results reviewed: Yes I reviewed the patient's lab results. ECG Data Attestation: I personally reviewed and interpreted this ECG (s) as follows: Interpretation: rate of 78, sinus. No acute ST elevation or depression. TX 176. QRS 84. QTc 446. HPI General Mode of arrival: ambulatory . Date/Time Provider Initiated Documentation: 06/06/21 10:05 . Limitations to Documentation: no limitations . Information obtained by: patient . HPI Narrative: Patient is a 76-year-old female with a history of hypertension, hyperlipidemia, diabetes, liver cirrhosis, recently diagnosed atrial fibrillation on Xarelto presents for dizziness and generalized weakness for the past 2 weeks. She states she does feel the symptoms at rest but they are worse with movement. She does also admit to intermittent shortness of breath and abdominal pain. Patient states she has had diminished appetite over the past 2 weeks. She denies any known fever, cough, vomiting, diarrhea or urinary symptoms. Patient was seen here in the ED at the end of March for dyspnea on exertion and diagnosed with a CHF exacerbation and UTI and treated with diuretics and antibiotics. Patient states she has been taking her Xarelto as directed. She does admit to occasional dark stools but denies any hematuria or epistaxis. Related Data Home Medications Medication Instructions Recorded Confirmed omeprazole 40 mg PO DAILY 09/23/13 06/06/21 diltiazem HCl [Cartia XT] 300 mg PO DAILY tab-cap 02/29/16 06/06/21 escitalopram oxalate 20 mg PO DAILY tab-cap 02/29/16 06/06/21 liraglutide 1.8 mg SUBCUT HS 05/05/18 06/06/21 diphenhydramine-acetaminophen tab 03/31/19 05/15/21 [Acetaminophen PM] gabapentin 100 mg capsule 100 mg PO QHS 12/11/20 06/06/21 fluticasone propionate 50 2 spray INTRANASAL DAILY 04/25/21 06/06/21 mcg/actuation nasal spray,suspension irbesartan 300 mg tablet 300 mg PO DAILY 04/25/21 06/06/21 liraglutide 0.6 mg/0.1 mL (18 mg/3 0.6 mg SUBCUT DAILY 04/25/21 06/06/21 mL) subcutaneous pen injector meclizine 12.5 mg tablet See Rx Instructions PO DAILY 04/25/21 06/06/21 rivaroxaban 10 mg tablet 10 mg PO DAILY 04/25/21 06/06/21 furosemide [Lasix] 40 mg PO DAILY 06/06/21 06/06/21 levothyroxine 125 mcg PO DAILY 06/06/21 06/06/21 Allergies Allergy/AdvReac Type Severity Reaction Status Date / Time tamoxifen Allergy Intermediate liver Verified 06/06/21 10:31 complications amlodipine AdvReac Intermediate leg pain Verified 06/06/21 10:31 atenolol AdvReac Intermediate leg pain Verified 06/06/21 10:31 doxazosin AdvReac Intermediate leg pain Verified 06/06/21 10:31 enalapril AdvReac Intermediate leg pain Verified 06/06/21 10:31 glipizide AdvReac Intermediate body aches Unverified 06/06/21 15:57 lisinopril AdvReac Intermediate leg pain Verified 06/06/21 10:31 sertraline AdvReac Intermediate leg pain Verified 06/06/21 10:31 simvastatin [From Zocor] AdvReac Intermediate leg pain Verified 06/06/21 10:31 Kmwtkji-SRZ-CuI Reductase AdvReac Intermediate leg pains Unverified 06/06/21 15:57 Inhibitor [Hadyqnm-Lhj-Hbf Reductase Inhibitor] ticlopidine AdvReac Intermediate leg pain Verified 06/06/21 10:31 valsartan AdvReac Intermediate leg pain Verified 06/06/21 10:31 General Stated Complaint: Dizzy/Sync JUANITA: 3 Review of Systems All systems reviewed & are unremarkable except as noted in HPI and below Constitutional Constitutional: Reports as per HPI, Denies chills, Reports fatigue, Denies fever(s), Reports headache(s), Reports poor appetite and Reports weakness Eyes Eyes: Denies blurry vision ENT Ears, Nose, Mouth, and Throat: Reports dizziness, Reports headache(s), Denies sore throat and Denies throat swelling Cardiovascular Cardiovascular: Denies chest pain, Reports dyspnea and Reports dyspnea on exertion Respiratory Respiratory: Denies cough, Reports dyspnea and Reports dyspnea on exertion Gastrointestinal Gastrointestinal: Reports abdominal pain, Denies diarrhea and Denies vomiting Genitourinary Genitourinary: Denies hematuria and Denies dysuria Musculoskeletal Musculoskeletal: Denies back pain and Denies numbness Integumentary/Breasts Skin/Breast: Denies lesions and Denies rash Neurologic Neurologic: Reports dizziness, Reports headache(s), Denies localized weakness, D enies numbness and Reports weakness Endocrine Endocrine: Reports fatigue Allergic/Immunologic Allergic/Immunologic: Denies throat swelling [facility] Medical History Aortic stenosis Breast Cancer Cirrhosis of liver not due to alcohol Diabetes mellitus Dyslipidemia Dyspnea on exertion GERD (gastroesophageal reflux disease) History of syncope Hypertension Hypothyroidism Lymphoma TERRY (obstructive sleep apnea) PVD (peripheral vascular disease) Renal artery stenosis SVT (supraventricular tachycardia) Syncope Surgical History Excision of neck mass Nail removal (toe) Partial mastectomy with sentinal node Rotator Cuff Repair Social History Smoking/Tobacco Use Status: Never Smoking risk assessment performed?: Yes Alcohol Intake: never Drug use: Never Substance use type: does not use Do you feel safe at home: Yes Do you feel safe in your relationship?: Yes Additional Social history: with 4 children. 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 Denies alcohol or tobacco use. Female Reproductive History Menstrual Menopause type: natural Exam Const General: cooperative and no acute distress HENMT Head: normal to inspection Face and sinus: normal facial exam Eyes General: appearance normal, both eyes and all related structures EOM: EOM intact bilaterally Neck Neck: normal visual inspection and No submandibular swelling Lymphatic: no lymphadenopathy noted Chest Chest: normal inspection of the chest and no tenderness Resp Effort & Inspection: normal respiratory effort and able to speak in complete sentences Auscultation: clear to auscultation bilaterally Cardio Rate: regular rate Rhythm: regular rhythm GI Inspection: normal to inspection Palpation: soft, not firm, not rigid and tender (diffuse) Auscultation: hypoactive bowel sounds Rectal Exam - female: visual inspection normal and heme positive stool Rectal exam heme positive - female: gross blood (maroon colored) Skin General skin exam: no rashes or lesions noted Neuro General: patient alert, patient awake and patient oriented x3 Cognition: normal cognition Speech: speech normal Motor: muscle tone normal throughout Sensory Exam: no sensory deficits noted Extrem General: normal to inspection, full ROM, capillary refill normal, no calf tenderness bilaterally and no edema Psych Appearance: grossly normal Mental Status: mental status grossly normal Speech and Movement: speech and movement normal Affect: normal affect Course Vital Signs Vital signs: Vital Signs Temperature 97.5 F L 06/06/21 10:12 Pulse 80 06/06/21 10:12 Blood Pressure 157/50 H 06/06/21 10:12 Pulse Oximetry 97 06/06/21 10:12 Temperature 97.5 F L 06/06/21 10:12 Temperature Source Temporal Artery Scan 06/06/21 10:12 Pulse 80 06/06/21 10:12 Respiratory Rate 17 06/06/21 10:24 Respiratory Effort Non-Labored 06/06/21 10:24 Respiratory Depth Normal 06/06/21 10:24 Respiratory Pattern Normal 06/06/21 10:24 Blood Pressure 157/50 H 06/06/21 10:12 Blood Pressure Position Supine 06/06/21 10:12 Pulse Oximetry 97 06/06/21 10:12 Oxygen Delivery Method Room Air 06/06/21 10:12 Oxygen Flow Rate 0 06/06/21 10:12 Pain Level 0 06/06/21 10:12
[2021-06-06 10:40] LABS: Abs Immature Grans 0.07 10^3/uL (0.0-0.06); Absolute Basophil Count 0.03 10^3/uL (0.0-0.2); Absolute Eosinophil Count 0.31 10^3/uL (0.0-0.7); Absolute Lymphocyte Count 1.68 10^3/uL (1.2-3.4); Absolute Neutrophil Count 4.64 10^3/uL (1.2-6.7); Basophils % 0.4; Eosinophils % 4.2; HCT 22.8 % (36.0-46.0); Immature Grans % 0.9; Lymphocytes % 22.6; MCH 28.9 pg (27.0-33.0); MCHC 30.3 % (32.0-36.0); MCV 95.4 fL (80-95); MPV 10.8 fL (8.0-11.0); Monocytes % 9.4; Neutrophils % 62.5; Nucleated RBC 0 %; Platelet Count 207 10^3/uL (130-400); RBC 2.39 10^6/uL (3.93-5.22); RDW 15.4 % (11.7-14.6); RDW-SD 53.1 fL; WBC 7.43 10^3/uL (4.4-10.8)
[2021-06-06 10:56] LABS: ALT 34 U/L (14-59); AST 31 U/L (15-37); Albumin 2.9 g/dL (3.4-5.0); Alkaline Phosphatase 115 U/L (46-116); Anion Gap 8.7 mmol/L (3-11); BUN 51 mg/dL (7-18); Bilirubin, Total 0.4 mg/dL (0.2-1.0); CO2 24.3 mmol/L (21.0-32.0); CREATININE 1.4 mg/dL (0.55-1.02); Calcium 8.4 mg/dL (8.5-10.1); Chloride 106 mmol/L (98-107); Estimated GFR 36.37 (mL/min/1.73m2); Glucose 207 mg/dL (74-106); Potassium 4.6 mmol/L (3.5-5.1); Sodium 139 mmol/L (136-145); Total Protein 6.2 g/dL (6.4-8.2)
[2021-06-06 10:59] LABS: Troponin I < 0.05 ng/mL (<0.06)
[2021-06-06 11:00] LABS: HGB 6.9 g/dL (11.2-15.7)
[2021-06-06 11:47] LABS: Diff Comment RBC Morph Reviewed; RBC Morphology Normal
[2021-06-06 12:18] LABS: Bilirubin Negative (Negative); Blood Trace-lysed (Negative); Clarity Clear (Clear); Glucose Negative (Negative); Ketones Negative (Negative); Leukocyte Esterase Small (Negative); Nitrite Negative (Negative); Urobilinogen 0.2 EU/dL (Up TO 0.2)
[2021-06-06 12:29] LABS: Bacteria Few HPF (Negative); C & S Indicated? No/Sq. Contamination; Casts Negative LPF (Negative); Crystals Negative HPF (Negative); Epithelial Cells Moderate HPF (Negative); Mucus Negative (Negative)
--- NOTE | 2021-06-06 13:27 | DI.CT_ITS ---
Exam(s) CT NECK WO EXAM: CT NECK WO CLINICAL HISTORY: h/o parotid cancer, assess for mass. TECHNIQUE: Imaging Protocol: Axial CT angiography was performed with multi-slice acquisition and mu lti-planar and/or 3D reconstructions. CONTRAST MATERIAL: Intravenous: Omnipaque 350 Contrast volume:structured data in ml COMPARISON: CT CT neck w from 12/04/2018 FINDINGS: The tissues of the nasopharynx are symmetrical. No significant findings in the oropharynx and hypoph arynx. Valleculae appear unremarkable as does the free edge of the epiglottis. No obvious masses th e level of the aryepiglottic folds and vocal cords and subglottic airway appears unremarkable. Thyro id gland is diminutive. Left parotid gland appears unremarkable. Some scarring is noted around the right parotid gland. No calculi nor distinct masses in the parotid glands. No masses in the submandibular glands. Lymph nodes: There is no obvious lymphadenopathy in the neck and supraclavicular regions. Osseous: No significant osseous lesions evident. Visualized paranasal sinuses: Clear. No mucosal thickening or fluid levels. IMPRESSION: 1. There appears to be evidence of prior surgery in the region of the right parotid gland. No obviou s masses evident. Also no lymphadenopathy seen. RADIATION DOSE DELIVERED: 1,109.2mGy.cm Total DLP DATA REPOSITORY: All CT scans at this facility are submitted to the National Radiology Data Registry (NRDR) Dose Index Registry (DIR) with the [employer] ([employer]). RADIATION OPTIMIZATION: All CT scans at this facility use at least one of these dose optimization te chniques: automated exposure control; mA and/or kV adjustment per patient size (includes targeted exa ms where dose is matched to clinical indication); or iterative reconstruction.
--- NOTE | 2021-06-06 13:28 | DI.CT_ITS ---
Exam(s) CT CHEST/ABD/PEL W EXAM: CT CHEST/ABD/PEL W CLINICAL HISTORY: short of breath, abdominal pain, rectal bleeding. TECHNIQUE: Imaging Protocol: Axial computed tomography images with coronal and sagittal reformatted images were created and reviewed CONTRAST MATERIAL: Intravenous: Omnipaque 350 Contrast volume:100 ml Oral: None COMPARISON: CT CT CHEST PE CTA from 04/18/2021 FINDINGS: CHEST: LUNGS: The bilateral pleural effusions which were evident on the CT scan of 04/18/2021 have resolved. There presently no pleural effusions. There are no confluent pulmonary infiltrates. Also no metas tatic appearing nodules in either lung field.. No focal findings in the trachea and mainstem bronchi . MEDIASTINUM: There is no hilar nor mediastinal adenopathy. CARDIAC: Heart size is normal. There is no pericardial effusion.Caliber of the ascending thoracic ao rta and aortic arch are normal. The descending thoracic aorta is atherosclerotic with upper normal d iameter. OSSEOUS: No significant osseous lesions.. ABDOMEN: There is no ascites. LIVER: Liver is slightly prominent and is cirrhotic in appearance. However, there are no discrete fo renae hepatic lesions identified GALLBLADDER/BILIARY: No obvious gallbladder pathology. CBD is not dilated. PANCREAS: No evidence of pancreatic mass nor dilatation of the pancreatic duct. SPLEEN: Spleen is upper normal size. There is an exophytic nodule off the posterior aspect the splee n which measures 12 x 12 millimeters. Probably a splenule. ADRENALS: There are no significant adrenal masses. KIDNEYS: No calculi nor hydronephrosis. No solid renal masses. No cysts evident. ABDOMINAL AORTA: Calcified and atherosclerotic. Maximum diameter 2.5 cm LYMPH NODES: There is no retroperitoneal nor paraaortic adenopathy. ABDOMINAL WALL: Small fat containing anterior abdominal wall umbilical hernia. No bowel loops therei n. No bowel obstruction. GI: There is no evidence of bowel obstruction. PELVIS: LYMPH NODES: There is no intrapelvic nor inguinal adenopathy. GI: No evidence of appendicitis.There are sigmoid diverticuli. There is no evidence of diverticuliti s. URINARY BLADDER: No calculi nor masses evident REPRODUCTIVE: Uterus and adnexal regions appear age-appropriate. No abnormal fluid in pelvis OSSEOUS: Left hip prosthesis. IMPRESSION: 1. Compared to the CT scan of March 2021 the previously present bilateral pleural effusions are no l onger present. There are no metastatic appearing nodules in either lung field. 2. Enlarged and cirrhotic liver. Spleen size upper normal. No ascites. 3. Sigmoid diverticuli but no evidence of acute diverticulitis. 4. Left hip prosthesis RADIATION DOSE DELIVERED: 1,340.02mGy.cm Total DLP DATA REPOSITORY: All CT scans at this facility are submitted to the National Radiology Data Registry (NRDR) Dose Index Registry (DIR) with the [employer] (ACR). RADIATION OPTIMIZATION: All CT scans at this facility use at least one of these dose optimization te chniques: automated exposure control; mA and/or kV adjustment per patient size (includes targeted exa ms where dose is matched to clinical indication); or iterative reconstruction.
[2021-06-06] MEDS: Normal Saline - Diluent 50 ML VIAL IV (13:31)
[2021-06-06] MEDS: Omnipaque 350 MG/ML 100 ML BTL IJ (13:31)
[2021-06-06 14:19] LABS: Source Nasal/Nares
--- NOTE | 2021-06-06 14:21 | HPE_ITS ---
Date of service: 06/06/21 Time of Service: 14:21 Assessment and Plan Assessment and plan (1) Lower GI bleed: Status: Acute Assessment and plan: rectal in ED shows hematochezia but there is question of dark stools at home over past few days. given protonix 80 mg bolus in ED, will continue BID with carafate qid last upper endoscopy was at [facility] in 2019, no evidence of esophageal varices. hemodynamically stable. will receive 1 unit of PRBC and follow H&H q6H overnight surgical consult placed, will be NPO after midnight for scope in am. xarelto will be discontinued. (2) A-fib: Status: Chronic Assessment and plan: in NSR. xarelto discontinued telemetry monitoring continue diltiazem (3) STEVENS (nonalcoholic steatohepatitis): Status: Acute Assessment and plan: followed by GI at [facility] (4) GERD (gastroesophageal reflux disease): Status: Chronic Assessment and plan: is on omeprazole at home. will place on protonix 80 mg BID. carafate QID (5) Diabetes mellitus: Status: Chronic Assessment and plan: NPO, will check blood sugars ac/hs. hold any home meds while npo (6) Hypothyroidism: Status: Chronic Assessment and plan: TSH 3.57 on Apr 25, 2021 continue home medication (7) Hypertension: Status: Chronic Assessment and plan: may consider holding leno inhibitor in setting of bleeding. monitor and adjust as needed. (8) DVT prophylaxis: Status: Acute Assessment and plan: no heparin in setting of acute GI bleed, TEDS and scd's only discussed with Dr Ibarra History of Present Illness History of Present Illness Chief Complaint: dizziness Narrative: presents to ED with weakness, shortness of breath and dizziness. she was recently started on xarelto for new afib, now in sinus rhythm. rectal shows maroon stool. hemoglobin 6.9. she consented to receive blood which has been delayed d/t antibodies making cross match challenging. she is hemodynamically stable and asymptomatic at rest. she was seen by surgery and plan to scope her on tomorrow. she denies any other c/o. Review of Systems All systems reviewed & are unremarkable except as noted in HPI and below Constitutional Constitutional: Denies fever(s), Reports lethargy and Reports weakness Cardiovascular Cardiovascular: Denies chest pain, Denies syncope, Denies rapid heart rate, Reports dyspnea and Reports dyspnea on exertion Respiratory Respiratory: Reports dyspnea and Reports dyspnea on exertion Gastrointestinal Gastrointestinal: Denies abdominal pain and Reports melena Neurologic Neurologic: Denies syncope and Reports weakness [facility] Medical History Aortic stenosis Breast Cancer Cirrhosis of liver not due to alcohol Diabetes mellitus Dyslipidemia Dyspnea on exertion GERD (gastroesophageal reflux disease) History of syncope Hypertension Hypothyroidism Lymphoma TERRY (obstructive sleep apnea) PVD (peripheral vascular disease) Renal artery stenosis SVT (supraventricular tachycardia) Syncope Surgical History Excision of neck mass Nail removal (toe) Partial mastectomy with sentinal node Rotator Cuff Repair Social History Smoking/Tobacco Use Status: Never Smoking risk assessment performed?: Yes Alcohol Intake: never Drug use: Never Substance use type: does not use Do you feel safe at home: Yes Do you feel safe in your relationship?: Yes Additional Social history: with 4 children. 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 Denies alcohol or tobacco use. Female Reproductive History Menstrual Menopause type: natural Meds Allergies and Home Medications Allergies Allergy/AdvReac Type Severity Reaction Status Date / Time tamoxifen Allergy Intermediate liver Verified 06/06/21 10:31 complications amlodipine AdvReac Intermediate leg pain Verified 06/06/21 10:31 atenolol AdvReac Intermediate leg pain Verified 06/06/21 10:31 doxazosin AdvReac Intermediate leg pain Verified 06/06/21 10:31 enalapril AdvReac Intermediate leg pain Verified 06/06/21 10:31 glipizide AdvReac Intermediate body aches Unverified 06/06/21 15:57 lisinopril AdvReac Intermediate leg pain Verified 06/06/21 10:31 sertraline AdvReac Intermediate leg pain Verified 06/06/21 10:31 simvastatin [From Zocor] AdvReac Intermediate leg pain Verified 06/06/21 10:31 [id number]-[id number] Reductase AdvReac Intermediate leg pains Unverified 06/06/21 15:57 Inhibitor [Cxvaqvl-Sgh-Syt Reductase Inhibitor] ticlopidine AdvReac Intermediate leg pain Verified 06/06/21 10:31 valsartan AdvReac Intermediate leg pain Verified 06/06/21 10:31 Home Medications Medication Instructions Recorded Confirmed Type omeprazole 40 mg PO DAILY 09/23/13 06/06/21 History diltiazem HCl [Cartia XT] 300 mg PO DAILY tab-cap 02/29/16 06/06/21 History escitalopram oxalate 20 mg PO DAILY tab-cap 02/29/16 06/06/21 History liraglutide 1.8 mg SUBCUT HS 05/05/18 06/06/21 History diphenhydramine-acetaminophen tab 03/31/19 05/15/21 History [Acetaminophen PM] gabapentin 100 mg capsule 100 mg PO QHS 12/11/20 06/06/21 History fluticasone propionate 50 2 spray INTRANASAL DAILY 04/25/21 06/06/21 History mcg/actuation nasal spray,suspension irbesartan 300 mg tablet 300 mg PO DAILY 04/25/21 06/06/21 History liraglutide 0.6 mg/0.1 mL (18 mg/3 0.6 mg SUBCUT DAILY 04/25/21 06/06/21 History mL) subcutaneous pen injector meclizine 12.5 mg tablet See Rx Instructions PO DAILY 04/25/21 06/06/21 History rivaroxaban 10 mg tablet 10 mg PO DAILY 04/25/21 06/06/21 History furosemide [Lasix] 40 mg PO DAILY 06/06/21 06/06/21 History levothyroxine 125 mcg PO DAILY 06/06/21 06/06/21 History Exam Const General: cooperative, healthy appearing, comfortable and well groomed Nutritional Appearance: obese Orientation: alert, awake and oriented x3 HENMT Head: normal to inspection, normocephalic and atraumatic Mouth: oral mucosae normal Resp Effort & Inspection: normal respiratory effort Auscultation: clear to auscultation bilaterally Cardio Rate: regular rate Rhythm: regular rhythm Heart Sounds: murmur systolic IV/ GI Inspection: normal to inspection Palpation: soft and nontender Skin General skin exam: no rashes or lesions noted Extrem General: normal to inspection and full ROM Results Labs Result diagrams: 06/06/21 10:20 06/06/21 10:20 Labs: Laboratory Results - last 24 hr 06/06/21 06/06/21 06/06/21 10:20 10:20 11:25 WBC 7.43 RBC 2.39 L Hgb 6.9 L* Hct 22.8 L MCV 95.4 H MCH 28.9 MCHC 30.3 L RDW 15.4 H Plt Count 207 MPV 10.8 Immature Gran % 0.9 Neutrophils % 62.5 Lymphocytes % 22.6 Monocytes % 9.4 Eosinophils % 4.2 Basophils % 0.4 Nucleated RBC % 0 Absolute Neutrophils 4.64 Absolute Lymphocytes 1.68 Absolute Monocytes 0.70 Absolute Eosinophils 0.31 Absolute Basophils 0.03 RBC Morphology Normal Sodium 139 Potassium 4.6 Chloride 106 Carbon Dioxide 24.3 Anion Gap 8.7 BUN 51 H Creatinine 1.4 H Estimated GFR/1.73 m2 36.37 Glucose 207 H Calcium 8.4 L Magnesium 2.0 Total Bilirubin 0.4 AST 31 ALT 34 Alkaline Phosphatase 115 Troponin I < 0.05 Total Protein 6.2 L Albumin 2.9 L Urine Color Urine Clarity Urine pH Ur Specific [place] Urine Protein Urine Ketones Urine Blood Urine Nitrite Urine Bilirubin Urine Urobilinogen Ur Leukocyte Esterase Urine RBC Urine WBC Ur Epithelial Cells Urine Crystals Urine Bacteria Urine Casts Urine Mucus Ur Culture Indicated? Urine Glucose COVID-19 Source Patient ABO/Rh A Positive Crossmatch See Detail 06/06/21 06/06/21 12:07 14:15 WBC RBC Hgb Hct MCV MCH MCHC RDW Plt Count MPV Immature Gran % Neutrophils % Lymphocytes % Monocytes % Eosinophils % Basophils % Nucleated RBC % Absolute Neutrophils Absolute Lymphocytes Absolute Monocytes Absolute Eosinophils Absolute Basophils RBC Morphology Sodium Potassium Chloride Carbon Dioxide Anion Gap BUN Creatinine Estimated GFR/1.73 m2 Glucose Calcium Magnesium Total Bilirubin AST ALT Alkaline Phosphatase Troponin I Total Protein Albumin Urine Color Yellow Urine Clarity Clear Urine pH 6.0 Ur Specific [place] 1.020 Urine Protein Negative Urine Ketones Negative Urine Blood Trace-lysed H Urine Nitrite Negative Urine Bilirubin Negative Urine Urobilinogen 0.2 Ur Leukocyte Esterase Small H Urine RBC 5-10 H Urine WBC 3-5 Ur Epithelial Cells Moderate Urine Crystals Negative Urine Bacteria Few Urine Casts Negative Urine Mucus Negative Ur Culture Indicated? No/Sq. Contamination Urine Glucose Negative COVID-19 Source Nasal/Nares Patient ABO/Rh Crossmatch Last Vital Signs Temp 36.4 C L 06/06/21 10:12 Pulse 79 06/06/21 12:31 Resp 19 06/06/21 12:42 BP 145/51 H 06/06/21 12:31 Pulse Ox 95 06/06/21 12:42
[2021-06-06 15:40] LABS: Iron 70 ug/dL (50-170); Total Iron Binding Capacity 385 ug/dL (250-450); Transferrin Sat 18 % (15-50)
[2021-06-06 16:07] LABS: Ferritin 14 ng/mL (8-252); Folate 10.1 ng/mL (8.6-20.0); Vitamin B12 359 pg/mL (193-986)
--- NOTE | 2021-06-06 16:07 | SCONE_ITS ---
Date of service: 06/06/21 Time of Service: 16:07 Assessment and Plan Assessment and plan (1) Acute anemia: Status: Acute Assessment and plan: 76 year old female with anemia and possible melena. Stool was positive for blood in the ER. She is hemodynamically stable. She did take her Xeralto today. As long as patient stays stable will plan on EGD tomorrow afternoon. She may have clear liquids until after breakfast. Plan for EGD hopefully after 1 pm History of Present Illness History of Present Illness Chief Complaint: Anemia Narrative: Patient is a 76-year-old female with a history of hypertension, hyperlipidemia, diabetes, liver cirrhosis, recently diagnosed atrial fibrillation on Xarelto who presented to the ER for dizziness and generalized weakness for the past 2 weeks. She states she does feel the symptoms at rest but they are worse with movement. She does also admit to intermittent shortness of breath and abdominal pain. Patient states she has had diminished appetite over the past 2 weeks. She denies any known fever, cough, vomiting, diarrhea or urinary symptoms. Patient was seen here in the ED at the end of March for dyspnea on exertion and diagnosed with a CHF exacerbation and UTI and treated with diuretics and antibiotics. Patient states she has been taking her Xarelto as directed. NO hematochezia. Patient questions dark stools? No diarrhea. She has been in sinus rhythm in the ER Labs revealed the patient to be anemic CT scan reviewed today. FINDINGS: CHEST: LUNGS: The bilateral pleural effusions which were evident on the CT scan of 04/18/2021 have resolved. There presently no pleural effusions. There are no confluent pulmonary infiltrates. Also no metastatic appearing nodules in either lung field.. No focal findings in the trachea and mainstem bronchi. MEDIASTINUM: There is no hilar nor mediastinal adenopathy. CARDIAC: Heart size is normal. There is no pericardial effusion.Caliber of the ascending thoracic aorta and aortic arch are normal. The descending thoracic aorta is atherosclerotic with upper normal diameter. OSSEOUS: No significant osseous lesions.. ABDOMEN: There is no ascites. LIVER: Liver is slightly prominent and is cirrhotic in appearance. However, there are no discrete focal hepatic lesions identified GALLBLADDER/BILIARY: No obvious gallbladder pathology. CBD is not dilated. PANCREAS: No evidence of pancreatic mass nor dilatation of the pancreatic duct. SPLEEN: Spleen is upper normal size. There is an exophytic nodule off the posterior aspect the spleen which measures 12 x 12 millimeters. Probably a splenule. ADRENALS: There are no significant adrenal masses. KIDNEYS: No calculi nor hydronephrosis. No solid renal masses. No cysts evident. ABDOMINAL AORTA: Calcified and atherosclerotic. Maximum diameter 2.5 cm LYMPH NODES: There is no retroperitoneal nor paraaortic adenopathy. ABDOMINAL WALL: Small fat containing anterior abdominal wall umbilical hernia. No bowel loops therein. No bowel obstruction. GI: There is no evidence of bowel obstruction. PELVIS: LYMPH NODES: There is no intrapelvic nor inguinal adenopathy. GI: No evidence of appendicitis.There are sigmoid diverticuli. There is no evidence of diverticulitis. URINARY BLADDER: No calculi nor masses evident REPRODUCTIVE: Uterus and adnexal regions appear age-appropriate. No abnormal f luid in pelvis OSSEOUS: Left hip prosthesis. IMPRESSION: 1. Compared to the CT scan of March 2021 the previously present bilateral pleural effusions are no longer present. There are no metastatic appearing nodules in either lung field. 2. Enlarged and cirrhotic liver. Spleen size upper normal. No ascites. 3. Sigmoid diverticuli but no evidence of acute diverticulitis. 4. Left hip prosthesis She had an ECHO recently which showed mild to moderate aortic stenosis. EF was 65%. PFT's were normal Consults Consult date: 06/06/21 Requesting physician: Justina Ibarra Review of Systems Constitutional Constitutional: Denies fever(s), Denies headache(s), Reports poor appetite and Reports weakness Eyes Eyes: Denies change in vision ENT Ears, Nose, Mouth, and Throat: Denies change in voice, Denies dysphagia, Denies headache(s) and Denies hoarseness Cardiovascular Cardiovascular: Denies chest pain, Denies chest pain at rest, Denies irregular heart rhythm, Denies dyspnea and Denies dyspnea on exertion Respiratory Respiratory: Denies cough, Denies dyspnea and Denies dyspnea on exertion Gastrointestinal Gastrointestinal: Reports as per HPI, Denies dysphagia, Denies dyspepsia and Denies heartburn Genitourinary Genitourinary: Denies dysuria, Denies urinary incontinence and Denies urinary urgency Neurologic Neurologic: Denies headache(s) and Reports weakness Endocrine Endocrine: Reports system reviewed and no additional complaints, except as documented Hematologic/Lymphatic Hematologic/Lymphatic: Denies easy bruising and Denies lymphadenopathy [facility] Medical History Aortic stenosis Breast Cancer Cirrhosis of liver not due to alcohol Diabetes mellitus Dyslipidemia Dyspnea on exertion GERD (gastroesophageal reflux disease) History of syncope Hypertension Hypothyroidism Lymphoma TERRY (obstructive sleep apnea) PVD (peripheral vascular disease) Renal artery stenosis SVT (supraventricular tachycardia) Syncope Surgical History Excision of neck mass Nail removal (toe) Partial mastectomy with sentinal node Rotator Cuff Repair Social History Smoking/Tobacco Use Status: Never Smoking risk assessment performed?: Yes Alcohol Intake: never Drug use: Never Substance use type: does not use Do you feel safe at home: Yes Do you feel safe in your relationship?: Yes Additional Social history: with 4 children. 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 Denies alcohol or tobacco use. Female Reproductive History Menstrual Menopause type: natural Exam Const General: healthy appearing, comfortable and no acute distress Orientation: alert and oriented x3 HENMT Head: normocephalic and atraumatic Eyes Pupils: PERRL Resp Effort & Inspection: normal respiratory effort Auscultation: clear to auscultation bilaterally Cardio Rate: regular rate Rhythm: regular rhythm Heart Sounds: no click, no gallops and no murmurs GI Inspection: normal to inspection Palpation: soft, hepatomegaly, nontender and No ascites Auscultation: normal bowel sounds Rectal Exam - female: other (done by the ER physician and was positive for blood) Results Last Vital Signs Temp 97.5 F L 06/06/21 10:12 Pulse 70 06/06/21 15:34 Resp 18 06/06/21 15:50 BP 147/41 H 06/06/21 15:34 Pulse Ox 95 06/06/21 15:50 Labs Result diagrams: 06/06/21 10:20 06/06/21 10:20 Labs: Laboratory Results - last 24 hr 06/06/21 06/06/21 06/06/21 10:20 10:20 10:20 WBC 7.43 RBC 2.39 L Hgb 6.9 L* Hct 22.8 L MCV 95.4 H MCH 28.9 MCHC 30.3 L RDW 15.4 H Plt Count 207 MPV 10.8 Immature Gran % 0.9 Neutrophils % 62.5 Lymphocytes % 22.6 Monocytes % 9.4 Eosinophils % 4.2 Basophils % 0.4 Nucleated RBC % 0 Absolute Neutrophils 4.64 Absolute Lymphocytes 1.68 Absolute Monocytes 0.70 Absolute Eosinophils 0.31 Absolute Basophils 0.03 RBC Morphology Normal Sodium 139 Potassium 4.6 Chloride 106 Carbon Dioxide 24.3 Anion Gap 8.7 BUN 51 H Creatinine 1.4 H Estimated GFR/1.73 m2 36.37 Glucose 207 H Calcium 8.4 L Magnesium 2.0 Iron 70 TIBC 385 Transferrin % Sat 18 Total Bilirubin 0.4 AST 31 ALT 34 Alkaline Phosphatase 115 Troponin I < 0.05 Total Protein 6.2 L Albumin 2.9 L Urine Color Urine Clarity Urine pH Ur Specific [place] Urine Protein Urine Ketones Urine Blood Urine Nitrite Urine Bilirubin Urine Urobilinogen Ur Leukocyte Esterase Urine RBC Urine WBC Ur Epithelial Cells Urine Crystals Urine Bacteria Urine Casts Urine Mucus Ur Culture Indicated? Urine Glucose COVID-19 Source Patient ABO/Rh Crossmatch 06/06/21 06/06/21 06/06/21 11:25 12:07 14:15 WBC RBC Hgb Hct MCV MCH MCHC RDW Plt Count MPV Immature Gran % Neutrophils % Lymphocytes % Monocytes % Eosinophils % Basophils % Nucleated RBC % Absolute Neutrophils Absolute Lymphocytes Absolute Monocytes Absolute Eosinophils Absolute Basophils RBC Morphology Sodium Potassium Chloride Carbon Dioxide Anion Gap BUN Creatinine Estimated GFR/1.73 m2 Glucose Calcium Magnesium Iron TIBC Transferrin % Sat Total Bilirubin AST ALT Alkaline Phosphatase Troponin I Total Protein Albumin Urine Color Yellow Urine Clarity Clear Urine pH 6.0 Ur Specific [place] 1.020 Urine Protein Negative Urine Ketones Negative Urine Blood Trace-lysed H Urine Nitrite Negative Urine Bilirubin Negative Urine Urobilinogen 0.2 Ur Leukocyte Esterase Small H Urine RBC 5-10 H Urine WBC 3-5 Ur Epithelial Cells Moderate Urine Crystals Negative Urine Bacteria Few Urine Casts Negative Urine Mucus Negative Ur Culture Indicated? No/Sq. Contamination Urine Glucose Negative COVID-19 Source Nasal/Nares Patient ABO/Rh A Positive Crossmatch See Detail
[2021-06-06] MEDS: Sucralfate 1 GM TAB PO ×2 (17:42→21:14)
[2021-06-06] MEDS: Insulin Aspart 300 UNITS/3 ML PEN SC ×2 (17:42→21:39)
[2021-06-06 20:25] LABS: HGB 5.8 g/dL (11.2-15.7)
[2021-06-06] MEDS: Gabapentin 100 MG CAP PO (21:13)
[2021-06-07] VITALS (20 sets, daily range): BP systolic 105–153; BP diastolic 56–71; PULSE 67–85; RESP 14–20; TEMP 36–37.2; O2SAT 9–99; BMI 39.3
[2021-06-07 00:13] LABS: COVID-19 PCR Negative (Negative)
[2021-06-07 00:29] LABS: HCT 19.1 % (36.0-46.0)
[2021-06-07] MEDS: Acetaminophen 325 MG TAB PO (03:41)
[2021-06-07] MEDS: Sucralfate 1 GM TAB PO ×3 (03:42→21:16)
[2021-06-07] MEDS: Pantoprazole 40 MG VIAL 80 MG IVP (04:27)
[2021-06-07] MEDS: Levothyroxine 125 MCG TAB PO (06:22)
--- NOTE | 2021-06-07 07:40 | PGE_ITS ---
Documented by User: DEV Arteaga 06/07/21 07:45 Date of Service Date of service: 06/07/21 Time of Service: 07:40 Assessment and Plan Assessment and plan (1) Acute anemia: Status: Acute Assessment and plan: Patient was receiving blood transfusion. She denies any pain at this time. Patient denies noting any bloody stools or melena over night. Last Hgb 6.0; Next one is currently pending Diet- NPO until after procedure Plan for EGD later this afternoon. Subjective Subjective Interval history since last seen: Arrive with patient sitting up in bed. She reports she is feeling well this morning. Denies having any nausea, vomiting, bloody or black tarry stools over night. She denies any abdominal pain or bloating. Exam Const General: cooperative, healthy appearing and comfortable Orientation: alert and oriented x3 Resp Effort & Inspection: normal respiratory effort, no audible wheezes and no cough Objective Last Vital Signs Temp 36.4 C L 06/07/21 06:44 Pulse 78 06/07/21 06:44 Resp 14 06/07/21 06:44 BP 126/69 06/07/21 06:44 Pulse Ox 95 06/07/21 06:44 Laboratory Results - last 24 hr 06/06/21 06/06/21 06/06/21 10:20 10:20 10:20 WBC 7.43 RBC 2.39 L Hgb 6.9 L* Hct 22.8 L MCV 95.4 H MCH 28.9 MCHC 30.3 L RDW 15.4 H Plt Count 207 MPV 10.8 Immature Gran % 0.9 Neutrophils % 62.5 Lymphocytes % 22.6 Monocytes % 9.4 Eosinophils % 4.2 Basophils % 0.4 Nucleated RBC % 0 Absolute Neutrophils 4.64 Absolute Lymphocytes 1.68 Absolute Monocytes 0.70 Absolute Eosinophils 0.31 Absolute Basophils 0.03 RBC Morphology Normal Sodium 139 Potassium 4.6 Chloride 106 Carbon Dioxide 24.3 Anion Gap 8.7 BUN 51 H Creatinine 1.4 H Estimated GFR/1.73 m2 36.37 Glucose 207 H Calcium 8.4 L Magnesium 2.0 Iron TIBC Transferrin % Sat Ferritin 14 Total Bilirubin 0.4 AST 31 ALT 34 Alkaline Phosphatase 115 Troponin I < 0.05 Total Protein 6.2 L Albumin 2.9 L Vitamin B12 359 Folate 10.1 Urine Color Urine Clarity Urine pH Ur Specific [place] Urine Protein Urine Ketones Urine Blood Urine Nitrite Urine Bilirubin Urine Urobilinogen Ur Leukocyte Esterase Urine RBC Urine WBC Ur Epithelial Cells Urine Crystals Urine Bacteria Urine Casts Urine Mucus Ur Culture Indicated? Urine Glucose COVID-19 Source SARS-CoV-2 (PCR) Patient ABO/Rh Antibody Screen Crossmatch 06/06/21 06/06/21 06/06/21 10:20 11:25 12:07 WBC RBC Hgb Hct MCV MCH MCHC RDW Plt Count MPV Immature Gran % Neutrophils % Lymphocytes % Monocytes % Eosinophils % Basophils % Nucleated RBC % Absolute Neutrophils Absolute Lymphocytes Absolute Monocytes Absolute Eosinophils Absolute Basophils RBC Morphology Sodium Potassium Chloride Carbon Dioxide Anion Gap BUN Creatinine Estimated GFR/1.73 m2 Glucose Calcium Magnesium Iron 70 TIBC 385 Transferrin % Sat 18 Ferritin Total Bilirubin AST ALT Alkaline Phosphatase Troponin I Total Protein Albumin Vitamin B12 Folate Urine Color Yellow Urine Clarity Clear Urine pH 6.0 Ur Specific [place] 1.020 Urine Protein Negative Urine Ketones Negative Urine Blood Trace-lysed H Urine Nitrite Negative Urine Bilirubin Negative Urine Urobilinogen 0.2 Ur Leukocyte Esterase Small H Urine RBC 5-10 H Urine WBC 3-5 Ur Epithelial Cells Moderate Urine Crystals Negative Urine Bacteria Few Urine Casts Negative Urine Mucus Negative Ur Culture Indicated? No/Sq. Contamination Urine Glucose Negative COVID-19 Source SARS-CoV-2 (PCR) Patient ABO/Rh A Positive Antibody Screen POSITIVE Crossmatch See Detail 06/06/21 06/06/21 06/07/21 14:15 19:50 00:15 WBC RBC Hgb 5.8 L* 6.0 L* Hct 19.0 L* 19.1 L* MCV MCH MCHC RDW Plt Count MPV Immature Gran % Neutrophils % Lymphocytes % Monocytes % Eosinophils % Basophils % Nucleated RBC % Absolute Neutrophils Absolute Lymphocytes Absolute Monocytes Absolute Eosinophils Absolute Basophils RBC Morphology Sodium Potassium Chloride Carbon Dioxide Anion Gap BUN Creatinine Estimated GFR/1.73 m2 Glucose Calcium Magnesium Iron TIBC Transferrin % Sat Ferritin Total Bilirubin AST ALT Alkaline Phosphatase Troponin I Total Protein Albumin Vitamin B12 Folate Urine Color Urine Clarity Urine pH Ur Specific [place] Urine Protein Urine Ketones Urine Blood Urine Nitrite Urine Bilirubin Urine Urobilinogen Ur Leukocyte Esterase Urine RBC Urine WBC Ur Epithelial Cells Urine Crystals Urine Bacteria Urine Casts Urine Mucus Ur Culture Indicated? Urine Glucose COVID-19 Source Nasal/Nares SARS-CoV-2 (PCR) Negative Patient ABO/Rh Antibody Screen Crossmatch Documented by User: Audrey Post DO 06/07/21 16:36
[2021-06-07] MEDS: Insulin Aspart 300 UNITS/3 ML PEN SC ×3 (07:50→17:28)
[2021-06-07] MEDS: Escitalopram 20 MG TAB PO (08:02)
[2021-06-07] MEDS: Cyanocobalamin 500 MCG TAB 1000 MCG PO (08:02)
[2021-06-07] MEDS: Furosemide 20 MG TAB 40 MG PO (08:02)
[2021-06-07] MEDS: dilTIAZem CD 300 MG CAPCR PO (08:02)
[2021-06-07] MEDS: Irbesartan 75 MG TAB 300 MG PO (08:02)
--- NOTE | 2021-06-07 11:00 | ANES.PREOP_ITS ---
General Info Date of Service Date Performed: 06/07/21 Height: 5 ft 3 in Weight: 100.7 kg Body Mass Index (BMI): 39.3 Surgical Procedure: Operation Date: 06/07/21 13:35 Proposed Procedures Side Surgeon p Gastroscopy Karli Potts MD Meds Allergies and Home Medications Allergies Allergy/AdvReac Type Severity Reaction Status Date / Time tamoxifen Allergy Intermediate liver Verified 06/06/21 10:31 complications amlodipine AdvReac Intermediate leg pain Verified 06/06/21 10:31 atenolol AdvReac Intermediate leg pain Verified 06/06/21 10:31 doxazosin AdvReac Intermediate leg pain Verified 06/06/21 10:31 enalapril AdvReac Intermediate leg pain Verified 06/06/21 10:31 glipizide AdvReac Intermediate body aches Unverified 06/06/21 15:57 lisinopril AdvReac Intermediate leg pain Verified 06/06/21 10:31 sertraline AdvReac Intermediate leg pain Verified 06/06/21 10:31 simvastatin [From Zocor] AdvReac Intermediate leg pain Verified 06/06/21 10:31 Xbdzxcq-RNE-QrM Reductase AdvReac Intermediate leg pains Unverified 06/06/21 15:57 Inhibitor [Anxgcyd-Pwa-Kxk Reductase Inhibitor] ticlopidine AdvReac Intermediate leg pain Verified 06/06/21 10:31 valsartan AdvReac Intermediate leg pain Verified 06/06/21 10:31 Home Medication Medication Instructions Recorded omeprazole 40 mg PO DAILY 09/23/13 diltiazem HCl [Cartia XT] 300 mg PO DAILY tab-cap 02/29/16 escitalopram oxalate 20 mg PO DAILY tab-cap 02/29/16 liraglutide 1.8 mg SUBCUT HS 05/05/18 diphenhydramine-acetaminophen tab 03/31/19 [Acetaminophen PM] gabapentin 100 mg capsule 100 mg PO QHS 12/11/20 fluticasone propionate 50 2 spray INTRANASAL DAILY 04/25/21 mcg/actuation nasal spray,suspension irbesartan 300 mg tablet 300 mg PO DAILY 04/25/21 liraglutide 0.6 mg/0.1 mL (18 mg/3 0.6 mg SUBCUT DAILY 04/25/21 mL) subcutaneous pen injector meclizine 12.5 mg tablet See Rx Instructions PO DAILY 04/25/21 rivaroxaban 10 mg tablet 10 mg PO DAILY 04/25/21 furosemide [Lasix] 40 mg PO DAILY 06/06/21 levothyroxine 125 mcg PO DAILY 06/06/21 Current Visit Medications: Current Medications Generic Name Dose Route Start Last Admin Trade Name Freq PRN Reason Stop Dose Admin Acetaminophen 0 mg 06/06/21 14:03 06/07/21 03:41 Acetaminophen 325 Mg Tab PO 650 mg Q4H PRN PRN Administration Al Hydrox/Mg Hydrox/Simethicone 30 ml 06/06/21 14:03 Mylanta Suspension 30 Ml Cup PO Q2H PRN PRN Cyanocobalamin 1,000 mcg 06/06/21 18:15 Cyanocobalamin 1000 Mcg/Ml Vial IM/SC TODAY PAVITHRA Cyanocobalamin 1,000 mcg 06/07/21 08:30 06/07/21 08:02 Cyanocobalamin 500 Mcg Tab PO 1,000 mcg DAILY PAVITHRA Administration Dextrose 0 gm 06/06/21 14:08 Glucose 40% Oral Solution 15 Gm/37.5 Gm Tube PO DIRECTED PRN Dextrose/Water 0 gm 06/06/21 14:08 Dextrose 50%-Water 25 Gm/50 Ml Syr IVP DIRECTED PRN Diltiazem HCl 300 mg 06/07/21 08:30 06/07/21 08:02 Diltiazem Cd 300 Mg Capcr PO 300 mg DAILY PAVITHRA Administration Dimethicone/Zinc Oxide 0 gm 06/06/21 13:58 Rasih Protect Cream 142 Gm Tube TP PRN PRN Docusate Sodium 100 mg 06/06/21 13:58 Docusate Sodium 100 Mg Cap PO TID PRN PRN Escitalopram Oxalate 20 mg 06/07/21 08:30 06/07/21 08:02 Escitalopram 20 Mg Tab PO 20 mg DAILY PAVITHRA Administration Fluticasone Propionate 0 gm 06/07/21 08:30 06/07/21 08:02 Fluticasone Nasal [place] 16 Gm Btl NS Not Given DAILY PAVITHRA Furosemide 40 mg 06/07/21 08:30 06/07/21 08:02 Furosemide 20 Mg Tab PO 40 mg DAILY PAVITHRA Administration Gabapentin 100 mg 06/06/21 22:00 06/06/21 21:13 Gabapentin 100 Mg Cap PO 100 mg HS PAVITHRA Administration Sodium Chloride 500 mls @ 0 mls/hr 06/06/21 13:58 Saline 500ml Bag IV PRN PRN As Directed IV Miscellaneous Supplies 1 each 06/06/21 14:00 Iv Access IV DIRECTED [facility] Insulin Aspart 0 units 06/06/21 17:00 06/07/21 07:50 Insulin Aspart 300 Units/3 Ml Pen SC 1 unit 0800,1200,1700,2200 PAVITHRA Administration Protocol Irbesartan 300 mg 06/07/21 08:30 06/07/21 08:02 Irbesartan 75 Mg Tab PO 300 mg DAILY PAVITHRA Administration Levothyroxine Sodium 125 mcg 06/07/21 06:00 06/07/21 06:22 Levothyroxine 125 Mcg Tab PO 125 mcg DAILY@0600 PAVITHRA Administration Magnesium Hydroxide 30 ml 06/06/21 13:58 Milk Of Magnesia 30 Ml Cup PO DAILY PRN PRN Pantoprazole Sodium 80 mg 06/06/21 04:00 06/07/21 04:27 Pantoprazole 40 Mg Vial IVP 80 mg Q12H PAVITHRA Administration Sodium Chloride 0 ml 06/06/21 13:58 Normal Saline Flush 10 Ml Syr IVP PRN PRN Sucralfate 1 gm 06/06/21 16:00 06/07/21 10:39 Sucralfate 1 Gm Tab PO Not Given Q6H PAVITHRA PFSH Active Problems Active Problems: Problem Status Onset Code Acute anemia D64.9 Lower GI bleed K92.2 Melena K92.1 A-fib I48.91 Shortness of breath R06.02 Acute UTI N39.0 Dyspnea on exertion R06.00 Aortic stenosis I35.0 Left rotator cuff tear M75.102 Tendinitis of long head of biceps brachii of left shoulder M75.22 Hypertrophy of inferior nasal turbinate J34.3 Nasal obstruction J34.89 Nasal septal deviation J34.2 Sensorineural hearing loss of both ears H90.3 Recurrent UTI 03/15/16 N39.0 Type 2 diabetes mellitus with diabetic peripheral angiopathy without gangrene E11.51 Peripheral vascular angioplasty status with implants and grafts Z95.820 Gastro-esophageal reflux disease without esophagitis K21.9 Hyperlipidemia E78.5 E. coli UTI N39.0, B96.20 STEVENS (nonalcoholic steatohepatitis) K75.81 E coli bacteremia R78.81 CICI (acute kidney injury) N17.9 DVT prophylaxis Sepsis A41.9 TERRY (obstructive sleep apnea) G47.33 PVD (peripheral vascular disease) I73.9 Cirrhosis of liver not due to alcohol GERD (gastroesophageal reflux disease) K21.9 Dyslipidemia E78.5 Hypertension I10 Renal artery stenosis I70.1 Hypothyroidism E03.9 History of syncope Z87.898 SVT (supraventricular tachycardia) I47.1 Diabetes mellitus E11.9 Right flank pain R10.9 RUQ abdominal pain R10.11 Abdominal pain 09/23/13 R10.9 Diarrhea 09/23/13 R19.7 Medical History Medical History Aortic stenosis Breast Cancer Cirrhosis of liver not due to alcohol Diabetes mellitus Dyslipidemia Dyspnea on exertion GERD (gastroesophageal reflux disease) History of syncope Hypertension Hypothyroidism Lymphoma TERRY (obstructive sleep apnea) PVD (peripheral vascular disease) Renal artery stenosis SVT (supraventricular tachycardia) Syncope Surgical History Surgical History Excision of neck mass Nail removal (toe) Partial mastectomy with sentinal node Rotator Cuff Repair Tobacco Smoking/Tobacco Use Status: Never Alcohol Alcohol Intake: never Substance Use Substance use: Never Substance use type: does not use Vital Signs and Lab Results Vital Signs Most Recent Vital Signs in EMR: Most Recent Vital Signs Temp Pulse Resp BP Pulse Ox 36.0 C L 85 14 110/58 L 98 06/07/21 09:07 06/07/21 09:07 06/07/21 09:07 06/07/21 09:07 06/07/21 09:07 Point of Care Results Point of Care Results: Finger Stick Blood Glucose 175 06/07/21 07:50 Lab Results Result Diagrams: 06/07/21 00:15 06/06/21 10:20 Blood Type / Crossmatch: Patient ABO/Rh A Positive 06/06/21 11:25 06/06/21 Antibody Screen POSITIVE 06/06/21 11:25 06/06/21 Crossmatch See Detail 06/06/21 11:25 06/06/21 Complete Blood Count: White Blood Count 7.43 10^3/uL (4.4-10.8) 06/06/21 10:20 06/06/21 Red Blood Count 2.39 10^6/uL (3.93-5.22) L 06/06/21 10:20 06/06/21 Hemoglobin 6.0 g/dL (11.2-15.7) L* 06/07/21 00:15 06/07/21 Hematocrit 19.1 % (36.0-46.0) L* 06/07/21 00:15 06/07/21 Platelet Count 207 10^3/uL (130-400) 06/06/21 10:20 06/06/21 Complete Metabolic Panel: Sodium Level 139 mmol/L (136-145) 06/06/21 10:20 06/06/21 Potassium Level 4.6 mmol/L (3.5-5.1) 06/06/21 10:06/06/21 Chloride Level 106 mmol/L (98-107) 06/06/21 10:20 06/06/21 Carbon Dioxide Level 24.3 mmol/L (21.0-32.0) 06/06/21 10:20 06/06/21 Blood Urea Nitrogen 51 mg/dL (7-18) H 06/06/21 10:20 06/06/21 Creatinine 1.4 mg/dL (0.55-1.02) H 06/06/21 10:20 06/06/21 Estimated GFR/1.73 m2 36.37 (mL/min/1.73m2) 06/06/21 10:20 06/06/21 Magnesium Level 2.0 mg/dL (1.8-2.4) 06/06/21 10:06/06/21 Calcium Level 8.4 mg/dL (8.5-10.1) L 06/06/21 10:20 06/06/21 Albumin 2.9 g/dL (3.4-5.0) L 06/06/21 10:06/06/21 Glucose Level 207 mg/dL (74-106) H 06/06/21 10:20 06/06/21 Liver Function Panel: Alanine Aminotransferase (ALT/SGPT) 34 U/L (14-59) 06/06/21 10: 1 Aspartate Amino Transf (AST/SGOT) 31 U/L (15-37) 06/06/21 10:06/06/21 Coagulation Panel: No Data to Display Cardiac Panel: Troponin I < 0.05 ng/mL (<0.06) 06/06/21 10:20 06/06/21 Arterial Blood Gas: No Data to Display Venous Blood Gas: No Data to Display Pancreas Panel: No Data to Display Thyroid Panel: No Data to Display Infectious Disease: Coronavirus (COVID-19)(PCR) Negative (Negative) 06/06/21 14:15 06/06/21 Coronavirus 2019 Source Nasal/Nares 06/06/21 14:15 06/06/21 Blood Cultures: No Data to Display Toxicology Panel: No Data to Display Imaging and Studies Imaging and Studies EKG Summary: 05/2012: sinus rhythm. Stress Test Summary: 01/12: 6 mets, exercise was stopped due to fatigue, no symptoms of ischemia, LVEF 63%, no WMA. Echocardiogram Summary: 06/14: LVEF 60-65%, mild MR. mild , trace AR. Carotid Artery Summary:: 2019: Right <50%stenosis, Left <50% stenosis. left vertebral artery occlusion. Pulmonary Function Summary: 05/15: normal. Anesthesia Assessment and Plan Anesthesia History Personal History: No History of Anesthesia Complications Family History: No Family History of Anesthesia Complications Exercise Tolerance Exercise Tolerance: Metabolic Equivalents>4 Cardiac & Pulmonary Exam Cardiac Exam: Normal S1/S2 Heart Sounds Pulmonary Exam: Clear Bilateral Breath Sounds Airway Exam Known Difficult Airway: Yes Mallampati Class: 2 Mouth Opening: Normal (> 3cm) Thyromental Distance: Less than 3 cm Neck Range of Motion: Limited ROM Neck Circumference: Thick Teeth Condition: Other ASA Classification ASA Score: ASA 3 Emergency Case?: Yes NPO Status NPO Status: NPO Clears >2 hours, Solids >8 hours Anesthesia Plan Resuscitation Status: Full Code Anesthesia Technique: General Anesthesia Airway Planned: Endotracheal Tube Monitors Used: Standard Monitors Preoperative Comments:: 76 yo female with low h/h, ?GIB for EGD. Has received 2 units of blood over night, H/H pending. Sig PMHx: DM2, PVD s/p SFA stent 2008, L vertebral artery occlusion, TERRY on CPAP, STEVENS, mild-mod , mild , parotid cancer, CKDIII. STEVENS cirrhosis, renal artery stenosis with stents. Previous Anes: difficult airway per [facility] and [facility] anes records. however has been a VL grade 1 for her hip with easy mask with OPA. Has had an EGD with 50 prop/200 gtt without issues. She currently denies nausea/vomiting, is appropriately NPO and endorses hunger. States she has never vomited blood. Plan: Propofol.
--- NOTE | 2021-06-07 12:28 | W.DIABETESNO ---
Date of service: 06/07/21 Time of Service: 12:28 Diabetes Note NOTE: Acknowledge consult for DSMES. Pt. is currently NPO for gi work up. Blood glucose at target. Ordered for a correction insulin. Will follow up with pt. prior to d/c to assess her DSMES needs. Time Spent in Nutritional Counseling and Treatment: 0
[2021-06-07 12:30] LABS: Abs Immature Grans 0.05 10^3/uL (0.0-0.06); Absolute Basophil Count 0.04 10^3/uL (0.0-0.2); Absolute Eosinophil Count 0.25 10^3/uL (0.0-0.7); Absolute Lymphocyte Count 1.78 10^3/uL (1.2-3.4); Absolute Monocyte Count 0.64 10^3/uL (0.1-0.8); Absolute Neutrophil Count 4.67 10^3/uL (1.2-6.7); Basophils % 0.5; Eosinophils % 3.4; HGB 7.6 g/dL (11.2-15.7); Immature Grans % 0.7; MCH 29.5 pg (27.0-33.0); MCHC 31.7 % (32.0-36.0); MPV 10.5 fL (8.0-11.0); Monocytes % 8.6; Neutrophils % 62.8; Nucleated RBC 0 %; Platelet Count 180 10^3/uL (130-400); RBC 2.58 10^6/uL (3.93-5.22); RDW 15.3 % (11.7-14.6); RDW-SD 51.4 fL; WBC 7.43 10^3/uL (4.4-10.8)
[2021-06-07 12:37] LABS: Anion Gap 7.8 mmol/L (3-11); BUN 50 mg/dL (7-18); CO2 28.2 mmol/L (21.0-32.0); CREATININE 1.6 mg/dL (0.55-1.02); Calcium 8.5 mg/dL (8.5-10.1); Chloride 105 mmol/L (98-107); Estimated GFR 31.17 (mL/min/1.73m2); Glucose 156 mg/dL (74-106); Potassium 4.1 mmol/L (3.5-5.1); Sodium 141 mmol/L (136-145)
--- NOTE | 2021-06-07 14:03 | CHAPLAIN ---
Silvia was resting in bed when I visited. She said she received two units of blood after midnight last night, so she hasn't slept well yell. She lives in the basement of her son's house, and another son lives nearby. A granddaughter drove her to the ER, after she was at the Urgent Care place to get check out and was sent from their to the ED. Silvia said she is scheduled for a scope this afternoon and she is looking forward to getting some answers after that. She was very pleasant and seemed comfortable being here.
--- NOTE | 2021-06-07 14:04 | W.PM.ENDDOP ---
Date of service: 06/07/21 Time of Service: 14:04 Endoscopy Report DATE OF PROCEDURE: 06/07/21 PRE-OP DIAGNOSIS: Anemia POST-OP DIAGNOSIS: same (gastritis) PROCEDURE: EGD SURGEON: Karli Potts ANESTHESIA TYPE: General:No Airway ESTIMATED BLOOD LOSS: 0 PATHOLOGY: none sent COMPLICATIONS: None DISPOSITION: PACU INDICATIONS: 76 year old female with anemia and possible melena. Stool was positive for blood in the ER. She is hemodynamically stable. She did take her Xeralto today. Risks, benefits and complications have been reviewed. Complications include but are not limited to bleeding, pain, perforation, sore throat, aspiration, and adverse reaction to the medications. Questions were entertained and answered to their satisfaction and they wished to proceed. No guarantees were given or implied. FINDINGS: Gastritis NO source of bleeding PROCEDURE DESCRIPTION: After informed consent was obtained the patient was take to the procedure room and placed in a supine position. Monitors were applied and a time out was done. The patients name, date of , procedure type, allergies to medications and metal in their body was reviewed. A bite block was placed and the patient was sedated. Once sedated and comfortable the gastroscope was advanced through the oropharynx which was grossly normal into the esophagus. The proximal and mid-esophagus were normal. In the distal esophagus there was no inflammation noted. The scope was advanced into the stomach and through the pylorus into the 3rd portion of the duodenum. The duodenum was noted to be normal. The scope was retracted back into the stomach. There was moderate inflammation noted of the antrum and body. There were no ulcers. The scope was retroflexed. The cardia and fundus were noted to be normal. There was no hiatal hernia noted. The scope was retracted back into the esophagus. The Z line was regular. The GE junction was at 35 cm. The scope was removed and the patient was woken up and taken back to [facility] in stable condition. Follow up: 2-3 weeks in the office. I was unable to find a source for her bleeding. She will need a colonoscopy which we can schedule when I see her in the office. Continue PPI single dose and carafate
--- NOTE | 2021-06-07 14:10 | W.ANESPOSTOP ---
Postoperative Evaluation Date, Time and Location Date Performed: 06/07/21 Time Performed: 14:10 Patient Location: Med/Surg Vital Signs Most Recent Imported Vital Signs: Most Recent Vital Signs Temp Pulse Resp BP Pulse Ox 36.5 C 73 15 105/61 92 06/07/21 13:58 06/07/21 13:58 06/07/21 13:58 06/07/21 13:58 06/07/21 13:58 Pain Score Most Recent Pain Score: Most Recent Pain Score Pain Level 0 06/07/21 13:58 Assessment Mental Status: Awake (Alert & Oriented to Patient Baseline) Airway and Respiratory Function: Patent airway with normal (patient baseline) respiratory exam Cardiovascular Function: Hemodynamically Stable Hydration Status: Adequately Hydrated Nausea & Vomiting: No Nausea or Vomiting Pain: Pt. Denies Any Pain Peripheral Nerve Block: Patient did not receive a nerve block
--- NOTE | 2021-06-07 14:41 | W.PM.PROGNOT ---
Date of Service Date of service: 06/07/21 Time of Service: 12:56 Assessment and Plan Assessment and plan (1) Lower GI bleed: Start date: 06/07/21 Start time: 12:56 Status: Acute Assessment and plan: EDG today with gastritis. She received 2 units. H/H 7.6/24.0, patient states she feels great. Will keep and monitor overnight repeat labs in am. given protonix 80 mg bolus in ED, will continue BID with carafate qid Will need outpatient Colonoscopy Stop xarelto until f/u with cardiology She has not had any bleeding since admission (2) A-fib: Start date: 06/07/21 Start time: 12:56 Status: Chronic Assessment and plan: in NSR. xarelto discontinued telemetry dcd continue diltiazem (3) STEVENS (nonalcoholic steatohepatitis): Start date: 06/07/21 Start time: 12:56 Status: Acute Assessment and plan: followed by GI at [facility] [facility] (4) GERD (gastroesophageal reflux disease): Start date: 06/07/21 Start time: 12:56 Status: Chronic Assessment and plan: is on omeprazole at home. will place on protonix po BID . carafate QID (5) Diabetes mellitus: Start date: 06/07/21 Start time: 12:56 Status: Chronic Assessment and plan: On CHO/HH diet FS ACHS continue SSI (6) Hypothyroidism: Start date: 06/07/21 Start time: 12:56 Status: Chronic Assessment and plan: TSH 3.57 on Apr 25, 2021 continue home medication (7) Hypertension: Start date: 06/07/21 Start time: 12:56 Status: Chronic Assessment and plan: may consider holding leno inhibitor in setting of bleeding. monitor and adjust as needed. (8) DVT prophylaxis: Start date: 06/07/21 Start time: 12:56 Status: Acute Assessment and plan: no heparin in setting of acute GI bleed, TEDS and scd's only discussed with Dr Ibarra Subjective Subjective Patient reports: feels better Interval history since last seen: states she feels great. H/H from noon 7.6 and 24. Surgery did upper and found only gastritis. She would benefit from outpatient colonoscopy. Will hold off on xarelto until f/u with cardiology, patient would like watchman procedure and will set up appt on discharge. Will keep overnight and monitor labs in am. Exam Const General: cooperative, healthy appearing, comfortable and well groomed Nutritional Appearance: obese Orientation: alert, awake and oriented x3 HENMT Head: normal to inspection, normocephalic and atraumatic Mouth: oral mucosae normal Resp Effort & Inspection: normal respiratory effort Auscultation: clear to auscultation bilaterally Cardio Rate: regular rate Rhythm: regular rhythm Heart Sounds: murmur systolic IV/ GI Inspection: normal to inspection Palpation: soft and nontender Skin General skin exam: no rashes or lesions noted Extrem General: normal to inspection and full ROM Objective Last Vital Signs Temp 36.5 C 06/07/21 13:58 Pulse 73 06/07/21 13:58 Resp 15 06/07/21 13:58 BP 105/61 06/07/21 13:58 Pulse Ox 92 06/07/21 13:58 Laboratory Results - last 24 hr 06/06/21 06/06/21 06/06/21 10:20 10:20 11:25 WBC RBC Hgb Hct MCV MCH MCHC RDW Plt Count MPV Immature Gran % Neutrophils % Lymphocytes % Monocytes % Eosinophils % Basophils % Nucleated RBC % Absolute Neutrophils Absolute Lymphocytes Absolute Monocytes Absolute Eosinophils Absolute Basophils Sodium Potassium Chloride Carbon Dioxide Anion Gap BUN Creatinine Estimated GFR/1.73 m2 Glucose Calcium Magnesium Iron 70 TIBC 385 Transferrin % Sat 18 Ferritin 14 Vitamin B12 359 Folate 10.1 SARS-CoV-2 (PCR) Patient ABO/Rh A Positive Antibody Screen POSITIVE Antibody Identification See Comment Crossmatch See Detail 06/06/21 06/06/21 06/07/21 14:15 19:50 00:15 WBC RBC Hgb 5.8 L* 6.0 L* Hct 19.0 L* 19.1 L* MCV MCH MCHC RDW Plt Count MPV Immature Gran % Neutrophils % Lymphocytes % Monocytes % Eosinophils % Basophils % Nucleated RBC % Absolute Neutrophils Absolute Lymphocytes Absolute Monocytes Absolute Eosinophils Absolute Basophils Sodium Potassium Chloride Carbon Dioxide Anion Gap BUN Creatinine Estimated GFR/1.73 m2 Glucose Calcium Magnesium Iron TIBC Transferrin % Sat Ferritin Vitamin B12 Folate SARS-CoV-2 (PCR) Negative Patient ABO/Rh Antibody Screen Antibody Identification Crossmatch 06/07/21 06/07/21 12:25 12:25 WBC 7.43 RBC 2.58 L Hgb 7.6 L Hct 24.0 L D MCV 93.0 MCH 29.5 MCHC 31.7 L RDW 15.3 H Plt Count 180 MPV 10.5 Immature Gran % 0.7 Neutrophils % 62.8 Lymphocytes % 24.0 Monocytes % 8.6 Eosinophils % 3.4 Basophils % 0.5 Nucleated RBC % 0 Absolute Neutrophils 4.67 Absolute Lymphocytes 1.78 Absolute Monocytes 0.64 Absolute Eosinophils 0.25 Absolute Basophils 0.04 Sodium 141 Potassium 4.1 Chloride 105 Carbon Dioxide 28.2 Anion Gap 7.8 BUN 50 H Creatinine 1.6 H Estimated GFR/1.73 m2 31.17 Glucose 156 H Calcium 8.5 Magnesium 2.0 Iron TIBC Transferrin % Sat Ferritin Vitamin B12 Folate SARS-CoV-2 (PCR) Patient ABO/Rh Antibody Screen Antibody Identification Crossmatch
--- NOTE | 2021-06-07 18:40 | PDOC.CMIN ---
- If Service Date Differs Date of service: 06/07/21 Time of Service: 18:40 Care Management Initial Assess REASON FOR HOSPITALIZATION:: Anemia due to acute GI blood loss PAST MEDICAL HISTORY/PAST SURGICAL HISTORY:: Aortic stenosis. Breast Cancer. Cirrhosis of liver not due to alcohol. Diabetes mellitus. Dyslipidemia. Dyspnea on exertion. GERD (gastroesophageal reflux disease). History of syncope. Hypertension. Hypothyroidism. Lymphoma. TERRY (obstructive sleep apnea). PVD (peripheral vascular disease). Renal artery stenosis. SVT (supraventricular tachycardia). Syncope. Excision of neck mass. Nail removal (toe). Partial mastectomy with sentinal node. Rotator Cuff Repair PREVIOUS FUNCTIONAL STATUS/SOCIAL/FAMILY SUPPORTS:: Silvia resides in [place], she is with four children. 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 Her son Yoav resides in an apartment in the upstairs of her house and is her primary contact. She is mostly independent with ADLs, does require minimum assistance with ambulation. CURRENT FUNCTIONAL STATUS:: Silvia is in high spirits and feeling well per provider. Has patient been provided with info about the portal/API?: Yes Did the patient sign up for the portal?: Yes (Previously) CODE STATUS:: Full Code INSURANCE COVERAGE / FINANCIAL ISSUES:: [employer] [place] CURRENT HOME/COMMUNITY SERVICES/EQUIPMENT:: Bedside commode, raised toilet seat, grab bars, shower chair, hand held shower, FWW, CPAP, glucometer PRIMARY CARE PHYSICIAN:: Jena Mitchell M.D. POTENTIAL DISCHARGE NEEDS:: Follow up appointments. PATIENT/FAMILY EDUCATION NEEDS:: Review discharge instructions, discuss Ask Me Three. ANTICIPATED BARRIERS TO DISCHARGE:: None identified. TRANSPORTATION:: Via private vehicle with family. PLAN:: Silvia will return home when ready per MD, she will have outpatient follow up with cardiology and for a colonoscopy. EGD noted gastritis today, blood tranfusion completed. CM continues to follow.
[2021-06-07] MEDS: Pantoprazole 40 MG TABCR PO (21:16)
[2021-06-07] MEDS: Gabapentin 100 MG CAP PO (21:16)
[2021-06-08 00:02] VITALS: BP 121/51; PULSE 79; RESP 18; TEMP 36.7; O2SAT 97
[2021-06-08 03:32] VITALS: BP 123/74; PULSE 89; RESP 18; TEMP 36.6; O2SAT 97
[2021-06-08] MEDS: Sucralfate 1 GM TAB PO ×2 (05:00→10:15)
[2021-06-08] MEDS: Levothyroxine 125 MCG TAB PO (05:00)
[2021-06-08 07:30] LABS: Abs Immature Grans 0.02 10^3/uL (0.0-0.06); Absolute Basophil Count 0.03 10^3/uL (0.0-0.2); Absolute Eosinophil Count 0.27 10^3/uL (0.0-0.7); Absolute Neutrophil Count 4.04 10^3/uL (1.2-6.7); Basophils % 0.5; Eosinophils % 4.1; HCT 23.9 % (36.0-46.0); HGB 7.6 g/dL (11.2-15.7); Immature Grans % 0.3; MCH 29.5 pg (27.0-33.0); MCHC 31.8 % (32.0-36.0); MCV 92.6 fL (80-95); MPV 11.1 fL (8.0-11.0); Monocytes % 10.5; Neutrophils % 60.6; Nucleated RBC 0 %; Platelet Count 166 10^3/uL (130-400); RBC 2.58 10^6/uL (3.93-5.22); RDW 15.3 % (11.7-14.6); RDW-SD 50.9 fL; WBC 6.66 10^3/uL (4.4-10.8)
[2021-06-08] MEDS: Insulin Aspart 300 UNITS/3 ML PEN SC (08:24)
[2021-06-08] MEDS: Irbesartan 75 MG TAB 300 MG PO (08:25)
[2021-06-08] MEDS: dilTIAZem CD 300 MG CAPCR PO (08:25)
[2021-06-08] MEDS: Furosemide 20 MG TAB 40 MG PO (08:25)
[2021-06-08] MEDS: Cyanocobalamin 500 MCG TAB 1000 MCG PO (08:28)
[2021-06-08] MEDS: Pantoprazole 40 MG TABCR PO (08:28)
[2021-06-08] MEDS: Escitalopram 20 MG TAB PO (08:28)
[2021-06-08] MEDS: Fluticasone NASAL SPRAY 16 GM BTL NS (08:29)
[2021-06-08 09:09] VITALS: BP 165/67; PULSE 78; RESP 18; TEMP 36.1; O2SAT 96
[2021-06-08] MEDS: IRON SUCROSE COMPLEX 200 MG in Normal Saline 100 ML 400 MG IVPB (09:26)
[2021-06-08] MEDS: Normal Saline Flush 10 ML SYR IVP ×2 (09:26→10:15)
--- NOTE | 2021-06-08 10:50 | DSE_ITS ---
Date of service: 06/08/21 Time of Service: 10:50 DS: Diagnosis Discharge Diagnosis (1) Lower GI bleed: Status: Acute (2) A-fib: Status: Chronic (3) STEVENS (nonalcoholic steatohepatitis): Status: Acute (4) GERD (gastroesophageal reflux disease): Status: Chronic (5) Diabetes mellitus: Status: Chronic (6) Hypothyroidism: Status: Chronic (7) Hypertension: Status: Chronic Discharge Plan Disposition Patient Disposition: HOME Condition: Stable Discharge Details Reason For Visit: Anemia Due to Acute GI Blood Loss Admit Date/Time: 06/06/21 14:00 Admit Provider: Justina Ibarra Attending Provider: Justina Ibarra Primary Care Provider: Jena Mitchell [facility] Course Hospital Course: This is a very pleasant 76 year old who presented to the ED with complaints of weakness, shortness of breath and dizziness. she was recently started on xarelto for new afib, now in sinus rhythm. rectal shows maroon stool. hemoglobin 6.9. she consented to receive blood which has been delayed d/t antibodies making cross match challenging. she is hemodynamically stable and asymptomatic at rest. She received 2 units of PRBC and hemoglobin now stable. She was started on protonix IV and carafate. she underwent upper endoscopy which showed gastritis. Her diet was advanced which she was tolerated well. plan is for discharge to home and outpatient f/u with colonoscopy. she continues to remain in NSR and xarelto was placed on hold. she is discharged to home with no services. discharge discussed with Dr Ibarra Home Meds and New Rx's Prescriptions: New sucralfate 1 gram Tablet 1 g PO QACHS Qty: 120 RF: 0 pantoprazole 40 mg Tablet,Delayed Release (Dr/Ec) 40 mg PO BID@ Qty: 60 RF: 0 Continued gabapentin 100 mg capsule 100 mg PO QHS RF: 0 diltiazem HCl [Cartia XT] 300 MG capsule,extended release 24hr 300 mg PO DAILY RF: 0 escitalopram oxalate 20 MG tablet 20 mg PO DAILY RF: 0 Victoza 2-Tray 0.6 mg/0.1 mL (18 mg/3 mL) pen injector 0.6 mg subcut DAILY RF: 0 irbesartan 300 mg tablet 300 mg PO DAILY RF: 0 meclizine 12.5 mg tablet See Rx Instructions PO DAILY RF: 0 fluticasone propionate [Allergy Relief (fluticasone)] 50 mcg/actuation spray,suspension 2 spray intranasal DAILY RF: 0 diphenhydramine-acetaminophen [Acetaminophen PM] 25-500 mg Tablet RF: 0 levothyroxine 125 mcg Tablet 125 mcg PO DAILY RF: 0 furosemide [Lasix] 20 mg tablet 40 mg PO DAILY RF: 0 liraglutide 0.6 mg/0.1 mL (18 mg/3 mL) pen injector 1.8 mg subcut HS RF: 0 Discontinued Xarelto 10 mg tablet 10 mg PO DAILY RF: 0 omeprazole 40 MG capsule,delayed release(DR/EC) 40 mg PO DAILY RF: 0 Discharge Instructions Instructions: Gastrointestinal Bleeding (DC) Additional Instructions: monitor for bleeding, lightheadedness, shortness of breath, chest pain, diz ziness or concerns and report immediately hold your xarelto until discussed at cardiology evaluation you were found to have gastritis on your EGD, prescriptions have been called into your pharmacy for protonix and carafate, take as directed. Stand Alone Forms: Nursing Discharge Form Referrals: Mary Sweet MD [ [facility] STAFF PHYSICIAN] - 06/19/21 10:40 am (This a ppointment will be at [facility] in [facility]) Karli Potts MD [ [facility] STAFF PHYSICIAN] - 06/22/21 9:00 am Jena Mitchell MD [Primary Care Provider] - 06/15/21 12:30 pm Activity:: Activity as Tolerated Equipment/Supplies:: No Equipment Needed Diet:: As Tolerated Discharge Orders Discharge Orders: Discharge Order (Routine); Ordered 06/08/21 Ordered By: Sugey Kaplan Discharge Data Discharge Date/Time-TO BE ENTERED AT DEPARTURE: 06/08/21 11:47 DS: Summary Time Spent with Patient providing and/or coordinating discharge services: Less than 30 minutes Status at Discharge Functional status at discharge: independent ambulation Overall status at discharge: patient is back to baseline Mental Status: mental status grossly normal Speech and Movement: speech and movement normal Mood: congruent mood Affect: normal affect Exam Const General: cooperative, healthy appearing, comfortable and well groomed Nutritional Appearance: obese Orientation: alert, awake and oriented x3 HENMT Head: normal to inspection, normocephalic and atraumatic Mouth: oral mucosae normal Resp Effort & Inspection: normal respiratory effort Auscultation: clear to auscultation bilaterally Cardio Rate: regular rate Rhythm: regular rhythm Heart Sounds: murmur systolic IV/ GI Inspection: normal to inspection Palpation: soft and nontender Skin General skin exam: no rashes or lesions noted Extrem General: normal to inspection and full ROM Psych Mental Status: mental status grossly normal Speech and Movement: speech and movement normal Mood: congruent mood Affect: normal affect DS: Data Vitals/I&O Vitals and I&O: Vital Signs Temperature 36.1 C L 06/08/21 09:09 Temperature Source Tympanic 06/08/21 09:09 Pulse 78 06/08/21 09:09 Pulse Rhythm Regular 06/08/21 02:30 Pulse 70 06/06/21 15:50 Respiratory Rate 18 06/08/21 09:09 Respiratory Effort Non-Labored 06/08/21 02:30 Respiratory Depth Normal 06/08/21 02:30 Respiratory Pattern Normal 06/08/21 02:30 Blood Pressure 165/67 H 06/08/21 09:09 Blood Pressure Mean 65 06/06/21 15:34 Blood Pressure Position Supine 06/06/21 10:12 Pulse Oximetry 96 06/08/21 09:09 Oxygen Delivery Method Room Air 06/08/21 09:09 Oxygen Flow Rate 0 06/08/21 09:09 Pain Level 0 06/08/21 09:09 Comment 06/07/21 14:56 Intake & Output 06/07/21 06/07/21 06/08/21 11:59 23:59 11:59 Intake Total 600 / 2180 1580 / 2180 Output Total 2000 / 3200 1200 / 3200 650 / 650 Balance -1400 / -1020 380 / -1020 -650 / -650 Weight 100.7 kg 101.4 kg Intake: Oral 1580 / 1580 Blood Product 500 / 500 Rbc Leuko Reduced Unit 250 / 250 [id number] Rbc Leuko Reduced Unit 250 / 250 [id number] Other 100 / 100 Rbc Leuko Reduced Unit 100 / 100 [id number] Output: Urine 2000 / 3200 1200 / 3200 650 / 650 Other: Urine Color Pale Yellow Pale Yellow Yellow Urine Appearance Clear Clear Clear Data Completed and Pending Labs on day of discharge: Labs from last 24 hours 06/08/21 06/07/21 06/07/21 06:29 12:25 12:25 WBC 6.66 7.43 RBC 2.58 L 2.58 L Hgb 7.6 L 7.6 L Hct 23.9 L 24.0 L D MCV 92.6 93.0 MCH 29.5 29.5 MCHC 31.8 L 31.7 L RDW 15.3 H 15.3 H Plt Count 166 180 MPV 11.1 H 10.5 Immature Gran % 0.3 0.7 Neutrophils % 60.6 62.8 Lymphocytes % 24.0 24.0 Monocytes % 10.5 8.6 Eosinophils % 4.1 3.4 Basophils % 0.5 0.5 Nucleated RBC % 0 0 Absolute Neutrophils 4.04 4.67 Absolute Lymphocytes 1.60 1.78 Absolute Monocytes 0.70 0.64 Absolute Eosinophils 0.27 0.25 Absolute Basophils 0.03 0.04 Sodium 141 Potassium 4.1 Chloride 105 Carbon Dioxide 28.2 Anion Gap 7.8 BUN 50 H Creatinine 1.6 H Estimated GFR/1.73 m2 31.17 Glucose 156 H Calcium 8.5 Magnesium 2.0 Blood Type (Referred) Blood Group (off-site) Antibody Identification Antibody ID Referred Direct Antiglob Test Crossmatch 06/06/21 06/06/21 11:25 11:25 WBC RBC Hgb Hct MCV MCH MCHC RDW Plt Count MPV Immature Gran % Neutrophils % Lymphocytes % Monocytes % Eosinophils % Basophils % Nucleated RBC % Absolute Neutrophils Absolute Lymphocytes Absolute Monocytes Absolute Eosinophils Absolute Basophils Sodium Potassium Chloride Carbon Dioxide Anion Gap BUN Creatinine Estimated GFR/1.73 m2 Glucose Calcium Magnesium Blood Type (Referred) Pending Blood Group (off-site) Pending Antibody Identification See Comment Antibody ID Referred Pending Direct Antiglob Test Pending Crossmatch See Detail [facility] Medical History (Updated 06/07/21 @ 12:27 by Tommie Mcconnell CRNA) Aortic stenosis Breast Cancer Cirrhosis of liver not due to alcohol Diabetes mellitus Difficult airway Per [facility] anesthesia notes she is a difficult airway. She has had previous intubations with VL grade 1 view. Also easy mask with 90 mm OPA, and successful LMA placement in the past. Dyslipidemia Dyspnea on exertion GERD (gastroesophageal reflux disease) History of syncope Hypertension Hypothyroidism Lymphoma TERRY (obstructive sleep apnea) PVD (peripheral vascular disease) Renal artery stenosis SVT (supraventricular tachycardia) Syncope Surgical History Excision of neck mass Nail removal (toe) Partial mastectomy with sentinal node Rotator Cuff Repair Social History Smoking/Tobacco Use Status: Never Smoking risk assessment performed?: Yes Alcohol Intake: never Drug use: Never Substance use type: does not use Do you feel safe at home: Yes Do you feel safe in your relationship?: Yes Additional Social history: with 4 children. 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 Denies alcohol or tobacco use. Female Reproductive History Menstrual Menopause type: natural
--- NOTE | 2021-06-08 18:35 | PDOC.CMDIS ---
- If Service Date Differs Date of service: 06/08/21 Time of Service: 18:36 LACE Index Scoring Tool - Questions: Length of Stay (in days): 2 Acuity (Admit via E.D.?): Yes Comorbidities: Diabetes w/o Complication, Any Tumor, Liver or Renal Disease E.D. Visits: 2 - Answers: Total Score: 12 Risk of Readmission: High Risk Care Management Discharge Reason for Hospitalization: Anemia due to acute GI blood loss Discharge Plan: Silvia will return home when ready per MD, she will have outpatient follow up with her PCP, cardiology and for a colonoscopy. She will transport via private vehicle with family. Patient/Family Education Needs: Review discharge instructions, discuss Ask Me Three.
== END 2021-06-08 11:47 | disposition home or self-care (01) | DRG 378 ==
LOC: ER 15:49 → MS 06-07 09:26
PROVIDERS: Nurse Practitioner Family; Surgery; Admitting Provider Internal Medicine; Emergency Provider Physician Assistant; PCP Family Medicine; Visit Provider Internal Medicine
PROC: 0DJ68ZZ Inspection of Stomach, Via Natural or Artificial Opening Endoscopic (ICD-10-PCS; CPT 43235; principal; 2021-06-07 13:30)
DX: K92.1 Melena (principal); I48.20 Chronic atrial fibrillation, unspecified; D62 Acute posthemorrhagic anemia; I47.1 Supraventricular tachycardia; K75.81 Nonalcoholic steatohepatitis (NASH); K21.9 Gastro-esophageal reflux disease without esophagitis; E11.9 Type 2 diabetes mellitus without complications; E03.9 Hypothyroidism, unspecified; I10 Essential (primary) hypertension; I35.0 Nonrheumatic aortic (valve) stenosis; Z85.3 Personal history of malignant neoplasm of breast; E78.5 Hyperlipidemia, unspecified; G47.33 Obstructive sleep apnea (adult) (pediatric); I70.1 Atherosclerosis of renal artery; I73.9 Peripheral vascular disease, unspecified; Z20.822 Contact with and (suspected) exposure to COVID-19; Z79.01 Long term (current) use of anticoagulants; K74.69 Other cirrhosis of liver; K29.70 Gastritis, unspecified, without bleeding
CPT/HCPCS: 43235; 36415; 74177; 80048; 80053; 86850; 86900; 86901; 86920; 87635; 93005; 99221; 99232; 99285; 70490; 71260; 81003; 81015; 82607; 82728; 82746; 83540; 83550; 83735; 84484; 85014; 85018; 85025; 86644; 86860; 86870; 86880; 86885; 86905; 93010; 99223; 99233; 99239; J1756; J2001; J3490; P9016

== ENCOUNTER 2021-06-11 19:38 | Emergency (ER) | payer OTHER, SELFPAY ==
[2021-06-11] VITALS (23 sets, daily range): BP systolic 126–147; BP diastolic 36–47; PULSE 67–78; RESP 12–31; TEMP 36.8; O2SAT 96–98
--- NOTE | 2021-06-11 19:30 | RT.EKG_ITS ---
APPROVED REPORT Exam: Resting ECG Reason for Exam: dizziness Patient Location: E HR:71 bpm ECG Measurements Heart Rate 71 AXIS HI 191 P 61 QRSd 78 QRS 57 QT 399 T 39 QTc 433 Conclusion Sinus rhythm...normal P axis, V-rate 60- 99 Low voltage, precordial leads...precordial leads <1.0mV
--- NOTE | 2021-06-11 20:01 | W.ED.GENAD ---
Discharge Plan Disposition Patient Disposition: HOME Condition: Stable Discharge Details Clinical Impression: Urinary tract infection, Anemia, Dizziness Primary Care Provider: Jena Mitchell ED Provider: Lenny Massey [place] Meds and New Rx's Prescriptions: New levofloxacin 750 mg tablet 750 mg PO DAILY Qty: 5 RF: 0 Continued gabapentin 100 mg capsule 100 mg PO QHS RF: 0 diltiazem HCl [Cartia XT] 300 MG capsule,extended release 24hr 300 mg PO DAILY RF: 0 escitalopram oxalate 20 MG tablet 20 mg PO DAILY RF: 0 Victoza 2-Tray 0.6 mg/0.1 mL (18 mg/3 mL) pen injector 0.6 mg subcut DAILY RF: 0 irbesartan 300 mg tablet 300 mg PO DAILY RF: 0 meclizine 12.5 mg tablet See Rx Instructions PO DAILY RF: 0 fluticasone propionate [Allergy Relief (fluticasone)] 50 mcg/actuation spray,suspension 2 spray intranasal DAILY RF: 0 diphenhydramine-acetaminophen [Acetaminophen PM] 25-500 mg Tablet RF: 0 levothyroxine 125 mcg Tablet 125 mcg PO DAILY RF: 0 furosemide [Lasix] 20 mg tablet 40 mg PO DAILY RF: 0 sucralfate 1 gram Tablet 1 g PO QACHS Qty: 120 RF: 0 pantoprazole 40 mg Tablet,Delayed Release (Dr/Ec) 40 mg PO BID@0730,1999 Qty: 60 RF: 0 liraglutide 0.6 mg/0.1 mL (18 mg/3 mL) pen injector 1.8 mg subcut HS RF: 0 Discharge Instructions Instructions: Urinary Tract Infection in Women (ED) Additional Instructions: You have anemia but do not need to have a blood transfusion you have a urinary tract infection based on your urine results follow up withyour primary care provider as scheduled on Friday if you feel more ill, have difficulty breathing or chest pain return to the emergency department Medical Decision Making 76 yo female who had been on xarelto for afib but was admitted for anemia in the setting of a gi bleed so this has since been held and was d/c'd on 06/08 comes in stating she still feels shaking in her arms and legs and that sometimes her knees give out. She denies any loc and has no t had shortness of breath, chest pain, vomit, falls or head trauma. She is in no distress and ambulated to her room using her wheelchair without difficulty. She has no focal motor or sensation deficits on exam with clear speech. No melena. Suspect she could have anemia vs electrolyte abnormalities, will obtain cbc and metabolic panel. Given lack of chest pain/pressure or dyspnea do not feel she requires workup for acs. No findings on exam to suggest cva. h/h stable from prior no need for transfusion. She does have mild increase in her creatinine and apparently hasn't been drinking fluids well so could be dehydrated. Has uti based on UA and has had some burning so will treat with antibiotics. I discussed with her and she is ambulating on her own and feels comfortable with d/c and I feel this is reasonable. She has f/u with pcp on Friday and return precautions given Differential Diagnosis Differential Diagnosis: anemia, electrolyte abnormality Medical Records Medical records reviewed: Yes I reviewed the patient's medical records. Lab Data Lab results reviewed: Yes I reviewed the patient's lab results. ECG Data Attestation: I personally reviewed and interpreted this ECG (s) as follows: Prior ECG tracings: available for review Interpretation: sinus rhythm, rate of 71, no acute st t wave ischemic findings HPI General Mode of arrival: ambulatory. Date/Time Provider Initiated Documentation: 06/11/21 19:39. Limitations to Documentation: no limitations. Information obtained by: patient. History of Present Illness 76 year old F presents to the emergency department with the chief complaint of feels shaky, Patient reports no radiation. Patient started experiencing this week(s) (1) and it has been constant. No relieving factors improve symptom(s), No exacerbating factors reported . Patient notes no other symptoms.. Patient did receive the following treatments prior to arrival, none Related Data Home Medications Medication Instructions Recorded Confirmed diltiazem HCl [Cartia XT] 300 mg PO DAILY tab-cap 02/29/16 06/06/21 escitalopram oxalate 20 mg PO DAILY tab-cap 02/29/16 06/06/21 liraglutide 1.8 mg SUBCUT HS 05/05/18 06/06/21 diphenhydramine-acetaminophen tab 03/31/19 05/15/21 [Acetaminophen PM] gabapentin 100 mg capsule 100 mg PO QHS 12/11/20 06/06/21 fluticasone propionate 50 2 spray INTRANASAL DAILY 04/25/21 06/06/21 mcg/actuation nasal spray,suspension irbesartan 300 mg tablet 300 mg PO DAILY 04/25/21 06/06/21 liraglutide 0.6 mg/0.1 mL (18 mg/3 0.6 mg SUBCUT DAILY 04/25/21 06/06/21 mL) subcutaneous pen injector meclizine 12.5 mg tablet See Rx Instructions PO DAILY 04/25/21 06/06/21 furosemide [Lasix] 40 mg PO DAILY 06/06/21 06/06/21 levothyroxine 125 mcg PO DAILY 06/06/21 06/06/21 pantoprazole 40 mg PO BID@ #60 tab 06/08/21 sucralfate 1 g PO QACHS #120 tab 06/08/21 levofloxacin 750 mg PO DAILY #5 tab 06/11/21 Previous Rx's Medication Instructions Recorded pantoprazole 40 mg PO BID@ #60 tab 06/08/21 sucralfate 1 g PO QACHS #120 tab 06/08/21 levofloxacin 750 mg PO DAILY #5 tab 06/11/21 Allergies Allergy/AdvReac Type Severity Reaction Status Date / Time tamoxifen Allergy Intermediate liver Verified 06/11/21 19:55 complications amlodipine AdvReac Intermediate leg pain Verified 06/11/21 19:55 atenolol AdvReac Intermediate leg pain Verified 06/11/21 19:55 doxazosin AdvReac Intermediate leg pain Verified 06/11/21 19:55 enalapril AdvReac Intermediate leg pain Verified 06/11/21 19:55 glipizide AdvReac Intermediate body aches Unverified 06/11/21 19:55 lisinopril AdvReac Intermediate leg pain Verified 06/11/21 19:55 sertraline AdvReac Intermediate leg pain Verified 06/11/21 19:55 simvastatin [From Zocor] AdvReac Intermediate leg pain Verified 06/11/21 19:55 Fhmlvze-WAK-JbE Reductase AdvReac Intermediate leg pains Unverified 06/11/21 19:55 Inhibitor [Gpqywth-Eoc-Yqy Reductase Inhibitor] ticlopidine AdvReac Intermediate leg pain Verified 06/11/21 19:55 valsartan AdvReac Intermediate leg pain Verified 06/11/21 19:55 General Stated Complaint: Dizzy/Sync JUANITA: 3 Review of Systems All systems reviewed & are unremarkable except as noted in HPI and below Constitutional Constitutional: Denies chills, Denies fever(s) and Denies weakness Cardiovascular Cardiovascular: Denies chest pain and Denies dyspnea Respiratory Respiratory: Denies cough and Denies dyspnea Gastrointestinal Gastrointestinal: Denies abdominal pain, Denies nausea and Denies vomiting Musculoskeletal Musculoskeletal: Denies joint swelling Integumentary/Breasts Skin/Breast: Denies rash Neurologic Neurologic: Denies weakness [facility] Medical History (Updated 06/11/21 @ 21:34 by Lenny Massey MD) Aortic stenosis Breast Cancer Cirrhosis of liver not due to alcohol Diabetes mellitus Difficult airway Per [facility] anesthesia notes she is a difficult airway. She has had previous intubations with VL grade 1 view. Also easy mask with 90 mm OPA, and successful LMA placement in the past. Dyslipidemia Dyspnea on exertion GERD (gastroesophageal reflux disease) History of syncope Hypertension Hypothyroidism Lymphoma TERRY (obstructive sleep apnea) PVD (peripheral vascular disease) Renal artery stenosis SVT (supraventricular tachycardia) Syncope Surgical History Excision of neck mass Nail removal (toe) Partial mastectomy with sentinal node Rotator Cuff Repair Social History Smoking/Tobacco Use Status: Never Smoking risk assessment performed?: Yes Alcohol Intake: never Drug use: Never Substance use type: does not use Do you feel safe at home: Yes Do you feel safe in your relationship?: Yes Additional Social history: with 4 children. 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 Denies alcohol or tobacco use. Female Reproductive History Menstrual Menopause type: natural Exam Const General: no acute distress Orientation: alert HENMT Head: normal to inspection Ears: external ears normal General nose exam: external nose normal Mouth: moist mucous membranes Eyes General: appearance normal, both eyes and all related structures Neck Neck: normal visual inspection Resp Effort & Inspection: normal respiratory effort and able to speak in complete sentences Cardio Rate: regular rate Skin General skin exam: no rashes or lesions noted Neuro General: patient alert and patient oriented x3 Extrem General: normal to inspection Psych Mental Status: mental status grossly normal Course Vital Signs Vital signs: Vital Signs Temperature 36.8 C 06/11/21 19:47 Pulse 75 06/11/21 19:47 Respiratory Rate 16 06/11/21 19:47 Blood Pressure 147/47 H 06/11/21 19:47 Pulse Oximetry 97 06/11/21 19:47 Temperature 36.8 C 06/11/21 19:47 Temperature Source Tympanic 06/11/21 19:47 Pulse 75 06/11/21 19:47 Respiratory Rate 16 06/11/21 19:47 Respiratory Effort Non-Labored 06/11/21 19:54 Blood Pressure 147/47 H 06/11/21 19:47 Pulse Oximetry 97 06/11/21 19:47 Oxygen Delivery Method Room Air 06/11/21 19:47 Oxygen Flow Rate 0 06/11/21 19:47 Pain Level 0 06/11/21 19:47
[2021-06-11 20:22] LABS: Source Nasal/Nares
[2021-06-11 20:24] LABS: Abs Immature Grans 0.05 10^3/uL (0.0-0.06); Absolute Basophil Count 0.04 10^3/uL (0.0-0.2); Absolute Eosinophil Count 0.28 10^3/uL (0.0-0.7); Absolute Lymphocyte Count 1.67 10^3/uL (1.2-3.4); Absolute Neutrophil Count 4.39 10^3/uL (1.2-6.7); Basophils % 0.6; Eosinophils % 3.9; HCT 24.8 % (36.0-46.0); HGB 7.7 g/dL (11.2-15.7); Immature Grans % 0.7; Lymphocytes % 23.4; MCH 29.7 pg (27.0-33.0); MCV 95.8 fL (80-95); MPV 10.8 fL (8.0-11.0); Monocytes % 9.8; Neutrophils % 61.6; Nucleated RBC 0 %; Platelet Count 211 10^3/uL (130-400); RBC 2.59 10^6/uL (3.93-5.22); RDW 15.7 % (11.7-14.6); WBC 7.13 10^3/uL (4.4-10.8)
[2021-06-11] MEDS: Acetaminophen 500 MG TAB 1000 MG PO (20:28)
[2021-06-11 20:35] LABS: Bilirubin Negative (Negative); Blood Negative (Negative); Clarity Sl Cloudy (Clear); Glucose Negative (Negative); Ketones Negative (Negative); Leukocyte Esterase Moderate (Negative); Nitrite Negative (Negative); Urobilinogen 0.2 EU/dL (Up TO 0.2); pH 5.5 (5-8)
[2021-06-11 20:38] LABS: PTT Activated 20.3 sec (21.0-27.5); Prothrombin Time 10.2 sec (9.3-11.0)
[2021-06-11 20:45] LABS: Bacteria Many HPF (Negative); C & S Indicated? Yes; Crystals Negative HPF (Negative); Epithelial Cells Few HPF (Negative); Mucus Negative (Negative); Other Cells Mod Transitional (Negative); RBC 0-2 HPF (0-2); WBC >50 HPF (0-5)
[2021-06-11 21:18] LABS: ALT 50 U/L (14-59); AST 58 U/L (15-37); Albumin 3.2 g/dL (3.4-5.0); Alkaline Phosphatase 142 U/L (46-116); Anion Gap 9.5 mmol/L (3-11); BUN 34 mg/dL (7-18); Bilirubin, Total 0.3 mg/dL (0.2-1.0); CO2 25.5 mmol/L (21.0-32.0); CREATININE 1.8 mg/dL (0.55-1.02); Calcium 8.5 mg/dL (8.5-10.1); Chloride 106 mmol/L (98-107); Estimated GFR 27.21 (mL/min/1.73m2); Glucose 153 mg/dL (74-106); Magnesium 2.1 mg/dL (1.8-2.4); Potassium 4.3 mmol/L (3.5-5.1); Sodium 141 mmol/L (136-145); Total Protein 6.5 g/dL (6.4-8.2); Troponin I < 0.05 ng/mL (<0.06)
[2021-06-11] MEDS: levoFLOXacin 500 MG, levoFLOXacin 250 MG 750 MG PO (21:23)
[2021-06-11 23:12] LABS: COVID-19 PCR Negative (Negative)
== END 2021-06-11 21:50 | disposition home or self-care (01) ==
PROVIDERS: Emergency Provider Emergency Medicine; PCP Family Medicine
DX: N39.0 Urinary tract infection, site not specified (principal); B96.20 Unspecified Escherichia coli [E. coli] as the cause of diseases classified elsewhere; R42 Dizziness and giddiness; D64.9 Anemia, unspecified; Z86.2 Personal history of diseases of the blood and blood-forming organs and certain disorders involving the immune mechanism
CPT/HCPCS: 36415; 80053; 86850; 86900; 86901; 87077; 87635; 93005; 99283; 81003; 81015; 83735; 84484; 85025; 85610; 85730; 86870; 87086; 87186; 93010

== ENCOUNTER 2021-06-18 16:41 | Emergency (ER) | payer OTHER, SELFPAY ==
[2021-06-18] VITALS (32 sets, daily range): BP systolic 131–184; BP diastolic 48–78; PULSE 66–113; RESP 14–25; TEMP 36.2–36.3; O2SAT 92–98
--- NOTE | 2021-06-18 17:27 | ED.GENADUL_ITS ---
Discharge Plan Disposition Patient Disposition: HOME Condition: Improving Discharge Details Clinical Impression: Hematochezia Primary Care Provider: Jena Mitchell ED Provider: Donavon Beckwith Home Meds and New Rx's Prescriptions: Continued gabapentin 100 mg capsule 100 mg PO QHS RF: 0 diltiazem HCl [Cartia XT] 300 MG capsule,extended release 24hr 300 mg PO DAILY RF: 0 escitalopram oxalate 20 MG tablet 20 mg PO DAILY RF: 0 Victoza 2-Tray 0.6 mg/0.1 mL (18 mg/3 mL) pen injector 0.6 mg subcut DAILY RF: 0 irbesartan 300 mg tablet 150 mg PO DAILY RF: 0 meclizine 12.5 mg tablet See Rx Instructions PO DAILY RF: 0 fluticasone propionate [Allergy Relief (fluticasone)] 50 mcg/actuation spray,suspension 2 spray intranasal DAILY RF: 0 diphenhydramine-acetaminophen [Acetaminophen PM] 25-500 mg Tablet RF: 0 levothyroxine 125 mcg Tablet 125 mcg PO DAILY RF: 0 furosemide [Lasix] 20 mg tablet 40 mg PO DAILY RF: 0 sucralfate 1 gram Tablet 1 g PO QACHS Qty: 120 RF: 0 pantoprazole 40 mg Tablet,Delayed Release (Dr/Ec) 40 mg PO BID@0730,2000 Qty: 60 RF: 0 levofloxacin 750 mg tablet 750 mg PO DAILY Qty: 5 RF: 0 Discharge Instructions Additional Instructions: Your work-up today included blood work which showed a hemoglobin that increased to 8.6. You underwent CT imaging which did not show any evidence of acute process. I discussed your case with on-call surgery, Dr. Post. The surgical team has plans to see you in clinic this week as scheduled. Please hold any further use of aspirin. Return to the emerge department for any acute concerns. Medical Decision Making 68-year-old female with recent melena 10 days ago which is associated with anemia, for which she was admitted, transfused, and underwent unremarkable upper endoscopy on June 07. Now presents with 2 episodes of lower abdominal cramping and hematochezia at home. Associated with mild weakness. No syncope or chest pain. She arrives to ER with a pulse of 100, blood pressure 140/62, oxygenating normally. Her rectal exam is guaiac negative at this time. Nonetheless, concern for colitis, other etiologies for lower GI bleed. Patient IV access established, screening labs obtained and referred for CT imaging. Labs note that her hemoglobin has risen, 8.6 today. Platelets 208. Chemistries note BUN 33, creatinine 1.5. Persistent mild elevation of LFTs. CT images show colonic diverticulosis without evidence of acute process. Patient had a further episode of red-colored stool tested guaiac negative here. I discussed her case with Dr. Post and the surgery team has plans for the patient be seen in follow-up this week. I will have her stop her daily aspirin in the interim. She is stable and appropriate for discharge home at this time. HPI General Mode of arrival: ambulatory . Date/Time Provider Initiated Documentation: 06/18/21 16:42 . Limitations to Documentation: no limitations . Information obtained by: patient . History of Present Illness 76 year old F presents to the emergency department with the chief complaint of Hematochezia, described as moderate, and is localized to the abdomen. Patient reports no radiation. Patient started experiencing this hour(s) and it has been now resolved. No relieving factors improve symptom(s), No exacerbating factors reported . Patient notes weakness; denies loss of appetite, shortness of breath and syncope. Patient did receive the following treatments prior to arrival, none Related Data Home Medications Medication Instructions Recorded Confirmed diltiazem HCl [Cartia XT] 300 mg PO DAILY tab-cap 02/29/16 06/18/21 escitalopram oxalate 20 mg PO DAILY tab-cap 02/29/16 06/18/21 diphenhydramine-acetaminophen tab 03/31/19 05/15/21 [Acetaminophen PM] gabapentin 100 mg capsule 100 mg PO QHS 12/11/20 06/18/21 fluticasone propionate 50 2 spray INTRANASAL DAILY 04/25/21 06/18/21 mcg/actuation nasal spray,suspension irbesartan 300 mg tablet 150 mg PO DAILY 04/25/21 06/06/21 liraglutide 0.6 mg/0.1 mL (18 mg/3 0.6 mg SUBCUT DAILY 04/25/21 06/18/21 mL) subcutaneous pen injector meclizine 12.5 mg tablet See Rx Instructions PO DAILY 04/25/21 06/18/21 furosemide [Lasix] 40 mg PO DAILY 06/06/21 06/18/21 levothyroxine 125 mcg PO DAILY 06/06/21 06/18/21 pantoprazole 40 mg PO BID@ #60 tab 06/08/21 06/18/21 sucralfate 1 g PO QACHS #120 tab 06/08/21 06/18/21 levofloxacin 750 mg PO DAILY #5 tab 06/11/21 06/18/21 Previous Rx's Medication Instructions Recorded pantoprazole 40 mg PO BID@ #60 tab 06/08/21 sucralfate 1 g PO QACHS #120 tab 06/08/21 levofloxacin 750 mg PO DAILY #5 tab 06/11/21 Allergies Allergy/AdvReac Type Severity Reaction Status Date / Time tamoxifen Allergy Intermediate liver Verified 06/18/21 17:08 complications amlodipine AdvReac Intermediate leg pain Verified 06/18/21 17:08 atenolol AdvReac Intermediate leg pain Verified 06/18/21 17:08 doxazosin AdvReac Intermediate leg pain Verified 06/18/21 17:08 enalapril AdvReac Intermediate leg pain Verified 06/18/21 17:08 glipizide AdvReac Intermediate body aches Unverified 06/18/21 17:08 lisinopril AdvReac Intermediate leg pain Verified 06/18/21 17:08 sertraline AdvReac Intermediate leg pain Verified 06/18/21 17:08 simvastatin [From Zocor] AdvReac Intermediate leg pain Verified 06/18/21 17:08 Nbzbjpr-EKR-IcX Reductase AdvReac Intermediate leg pains Unverified 06/18/21 17:08 Inhibitor [Tpyyydx-Ulk-Vle Reductase Inhibitor] ticlopidine AdvReac Intermediate leg pain Verified 06/18/21 17:08 valsartan AdvReac Intermediate leg pain Verified 06/18/21 17:08 General Stated Complaint: GI Bleed JUANITA: 2 Review of Systems Narrative: No syncope or chest pain. Mild lower abdominal pain. Had an eventful upper endoscopy on June 07. 8 systems reviewed and otherwise negative. Fully immunized against COVID-19 including booster [facility] Medical History Aortic stenosis Breast Cancer Cirrhosis of liver not due to alcohol Diabetes mellitus Difficult airway [place] [facility] [place] she is a difficult airway. She has had previous intubations with VL grade 1 view. Also easy mask with 90 mm OPA, and successful LMA placement in the past. Dyslipidemia Dyspnea on exertion GERD (gastroesophageal reflux disease) History of syncope Hypertension Hypothyroidism Lymphoma TERRY (obstructive sleep apnea) PVD (peripheral vascular disease) Renal artery stenosis SVT (supraventricular tachycardia) Syncope Surgical History Excision of neck mass Nail removal (toe) Partial mastectomy with sentinal node Rotator Cuff Repair Social History Smoking/Tobacco Use Status: Never Smoking risk assessment performed?: Yes Alcohol Intake: never Drug use: Never Substance use type: does not use Do you feel safe at home: Yes Do you feel safe in your relationship?: Yes Additional Social history: with 4 children. 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 Denies alcohol or tobacco use. Female Reproductive History Menstrual Menopause type: natural Exam Narrative Exam Narrative: GEN: awake, alert, oriented 3. Pleasant, well groomed, interac tive. HEAD: Normocephalic, atraumatic ENT: Mucous membranes moist, oropharynx unremarkable, External ear exam unremarkable EYES: PERRL, EOMI NECK: Full ROM, no CHRISTOPHER, no menigismus CHEST/RESP: Nontender, clear to auscultation bilateral, no wheeze/rhonchi/rales CARDIOVASCULAR: RRR, 2 out of 6 to 3 out of 6 systolic ejection murmur, rub yassine. 2+ Rad pulse bilateral ABDOMEN: Soft, mild lower abdominal tenderness without rebound or guarding, no mass. +Bowel sounds. Normal rectal tone, brown stool that is guaiac negative EXT: Full ROM, no edema, no rash Neuro: Grossly normal neurologic exam, conversant, interactive. Psych: Speech fluent, thoughts congruent, affect normal Course Vital Signs Vital signs: Vital Signs Temperature 36.3 C L 06/18/21 17:05 Pulse 100 H 06/18/21 17:05 Respiratory Rate 20 06/18/21 17:05 Blood Pressure 137/62 06/18/21 17:05 Pulse Oximetry 96 06/18/21 17:05 Temperature 36.3 C L 06/18/21 17:05 Temperature Source Temporal Artery Scan 06/18/21 17:05 Pulse 100 H 06/18/21 17:05 Respiratory Rate 20 06/18/21 17:05 Respiratory Effort Non-Labored 06/18/21 17:12 Blood Pressure 137/62 06/18/21 17:05 Blood Pressure Position Sitting 06/18/21 17:05 Pulse Oximetry 96 06/18/21 17:05 Oxygen Delivery Method Room Air 06/18/21 17:05 Oxygen Flow Rate 0 06/18/21 17:05 Pain Level 2 06/18/21 17:05
[2021-06-18 17:38] LABS: Abs Immature Grans 0.05 10^3/uL (0.0-0.06); Absolute Basophil Count 0.02 10^3/uL (0.0-0.2); Absolute Eosinophil Count 0.26 10^3/uL (0.0-0.7); Absolute Monocyte Count 0.73 10^3/uL (0.1-0.8); Absolute Neutrophil Count 3.87 10^3/uL (1.2-6.7); Basophils % 0.3; Eosinophils % 4.2; HCT 28.7 % (36.0-46.0); HGB 8.6 g/dL (11.2-15.7); Immature Grans % 0.8; Lymphocytes % 19.6; MCH 28.9 pg (27.0-33.0); MCV 96.3 fL (80-95); MPV 10.6 fL (8.0-11.0); Monocytes % 11.9; Neutrophils % 63.2; Nucleated RBC 0 %; Platelet Count 208 10^3/uL (130-400); RBC 2.98 10^6/uL (3.93-5.22); RDW 15.7 % (11.7-14.6); RDW-SD 53.8 fL; WBC 6.13 10^3/uL (4.4-10.8)
--- NOTE | 2021-06-18 17:45 | DI.CT_ITS ---
Exam(s) CT ABDOMEN PELVIS WO EXAM: CT ABDOMEN PELVIS WO CLINICAL HISTORY: hematochezia, lower abd pain (elev Cr). TECHNIQUE: Imaging Protocol: Axial computed tomography images with coronal and sagittal reformatted images were created and reviewed. Oral: / no COMPARISON: CT CT CHEST/ABD/PEL W from 06/06/2021 FINDINGS: ABDOMEN: Lung Bases: Normal where visualized. Liver: Stable nodular appearance. No measurable mass. Gallbladder and biliary tract: No radiodense calculus or dilation. Pancreas: Normal density, no abnormal calcifications or inflammatory process. Spleen: Mildly enlarged. Stable mild perisplenic varices. Kidneys: Normal size, contour and axis. No radiodense stones or obstructive uropathy. No masses seen. Adrenal glands: No masses seen. Lymph nodes: Within normal limits. Abdominal Aorta: Abdominal portion non-dilated. Atherosclerotic changes. PELVIS: Bladder: Symmetric distention, no gross wall thickening. Bowel: No obstruction or bowel wall thickening. Sigmoid diverticulosis. No diverticulitis. Normal appendix. Peritoneal cavity: No ascites, collection or mesenteric inflammatory response. Reproductive organs: Within normal limits. Bones: Left hip prosthesis. Degenerative changes lumbar spine. Degenerative changes right hip. IMPRESSION: Cirrhotic liver. Diverticulosis without evidence of diverticulitis. No acute abnormality. RADIATION DOSE DELIVERED: 1,123.33mGy.cm Total DLP DATA REPOSITORY: All CT scans at this facility are submitted to the National Radiology Data Registry (NRDR) Dose Index Registry (DIR) with the [employer] (ACR). RADIATION OPTIMIZATION: All CT scans at this facility use at least one of these dose optimization te chniques: automated exposure control; mA and/or kV adjustment per patient size (includes targeted exa ms where dose is matched to clinical indication); or iterative reconstruction.
[2021-06-18 17:52] LABS: ALT 61 U/L (14-59); AST 52 U/L (15-37); Albumin 3.2 g/dL (3.4-5.0); Alkaline Phosphatase 178 U/L (46-116); Anion Gap 6.8 mmol/L (3-11); BUN 33 mg/dL (7-18); Bilirubin, Total 0.3 mg/dL (0.2-1.0); CO2 28.2 mmol/L (21.0-32.0); CREATININE 1.5 mg/dL (0.55-1.02); Chloride 106 mmol/L (98-107); Estimated GFR 33.58 (mL/min/1.73m2); Glucose 165 mg/dL (74-106); Potassium 4.3 mmol/L (3.5-5.1); Sodium 141 mmol/L (136-145); Total Protein 6.8 g/dL (6.4-8.2)
[2021-06-18] MEDS: Normal Saline 250 ML IV (17:55)
[2021-06-18 18:18] LABS: Prothrombin Time 10.3 sec (9.3-11.0)
[2021-06-18] MEDS: ACETAMINOPHEN 1,000 MG/100 ML BTL 400 MG IVPB (18:46)
--- NOTE | 2021-06-18 19:20 | DI.VRAD_ITS ---
PROCEDURE INFORMATION: Exam: CT Abdomen And Pelvis Without Contrast Exam date and time: 06/18/2021 5:58 PM Age: 76 years old Clinical indication: Abdominal pain; Localized; Patient HX: Hematochezia, lower abd pain (elev cr) TECHNIQUE: Imaging protocol: Computed tomography of the abdomen and pelvis without contrast. COMPARISON: CT CHEST/ABD/PEL W 06/06/2021 1:21 PM FINDINGS: Lungs: Bibasilar linear opacities of atelectasis and/or fibrosis. Liver: Cirrhotic liver. Gallbladder and bile ducts: No calcified stones. No ductal dilation. Pancreas: No ductal dilation. Spleen: Enlarged spleen measures 15.6 centimetres in craniocaudal dimension. Likely 12 mm accessory spleen adjacent to the spleen. Adrenal glands: Normal. No mass. Kidneys and ureters: Unremarkable. No hydronephrosis. Stomach and bowel: Colonic diverticulosis. Appendix: No evidence of appendicitis. Intraperitoneal space: No free air. No significant fluid collection. Vasculature: Perisplenic venous varices. Atherosclerotic abdominal aorta and distal branches. Lymph nodes: No enlarged lymph nodes. Urinary bladder: Unremarkable as visualized. Reproductive: Unremarkable as visualized. Bones/joints: Status post left hip replacement. Multilevel degenerative changes within thoracic and lumbar spine. Degenerative changes within right hip joint. Soft tissues: Unremarkable. Other findings: The abdomen is obese. IMPRESSION: 1. Cirrhotic liver, portal hypertension. 2. Colonic diverticulosis, no evidence for acute diverticulitis. Dictated and Authenticated by: Herber Ramirez MD. Ordering:AGUEDA Raphael MD
--- NOTE | 2021-06-18 19:30 | NUR.NOTE ---
Patient up to bedside commode. Denies dizziness. Tolerates movement well. Nursing Note:
[2021-06-20 12:56] LABS: Ferritin 309 ng/mL (8-252)
== END 2021-06-18 19:52 | disposition home or self-care (01) ==
PROVIDERS: Emergency Provider Emergency Medicine; PCP Family Medicine
DX: K92.1 Melena (principal)
CPT/HCPCS: 36415; 80053; 86850; 86900; 86901; 96361; 96365; 99284; 74176; 82728; 85025; 85610; 85730; 86870; J0131

== ENCOUNTER 2021-06-19 10:24 | Outpatient (CLI) | payer OTHER, SELFPAY ==
--- NOTE | 2021-06-19 10:15 | RT.EKG_ITS ---
APPROVED REPORT Exam: Resting ECG Reason for Exam: HTN, afib Patient Location: O HR:85 bpm ECG Measurements Heart Rate 85 AXIS OR 183 P 60 QRSd 93 QRS 44 QT 364 T 25 QTc 433 Conclusion Sinus rhythm...normal P axis, V-rate 50- 99 Normal Electrocardiogram
== END 2021-06-19 10:25 | disposition home or self-care (01) ==
LOC: DI.CARD 10:27
PROVIDERS: PCP Family Medicine; Referring Provider Family Medicine; Visit Provider Internal Medicine Cardiovascular Disease
DX: I10 Essential (primary) hypertension (principal); I48.91 Unspecified atrial fibrillation
CPT/HCPCS: 93010

== ENCOUNTER → 2021-06-19 10:24 | Outpatient (BNVA) | payer OTHER, SELFPAY | PROVIDERS: PCP Family Medicine; Referring Provider Family Medicine; Visit Provider Internal Medicine Cardiovascular Disease | DX: I48.91 Unspecified atrial fibrillation (principal); I10 Essential (primary) hypertension; D64.9 Anemia, unspecified; I35.0 Nonrheumatic aortic (valve) stenosis; E11.9 Type 2 diabetes mellitus without complications | CPT/HCPCS: 93005; 99214; 99213 ==

== ENCOUNTER 2021-06-22 00:27 | Outpatient (CLI) | payer OTHER, SELFPAY ==
--- NOTE | 2021-06-22 | DI.MRI_ITS ---
Exam(s) MR BRAIN WO/W EXAM: MR BRAIN WO/W CLINICAL HISTORY: HEADACHE, R51.9, ATRIAL FIB, I48.0, VERTIGO, H81.10 TECHNIQUE: Multiplanar multisequence MRI of the brain was performed. Post contrast imaging was also performed including axial and coronal T1 weighted images as well as MP rage imaging. COMPARISON: No exams were available for comparison FINDINGS: There is mild generalized cerebral atrophy and there are scattered areas of abnormal signal in perive ntricular white matter consistent with mild microvascular ischemic changes. The orbital and temporal bone structures appear intact as does the pituitary. Diffusion weighted imaging shows no evidence of infarction. Susceptibility weighted imaging shows no evidence of intracranial hemorrhage. There is normal flow void in the [place] vasculature. Post contrast imaging shows no evidence of a mass lesion or enhancing lesion in the brain. IMPRESSION: Brain MR examination is essentially normal for age. Mild changes of atrophy and microvascular ischem ic changes noted. No mass lesion or enhancing lesion. DATA REPOSITORY:
[2021-06-22] MEDS: Normal Saline Flush 10 ML SYR IVP (14:04)
[2021-06-22] MEDS: Gadoterate meglumine 20 ML VIAL IVP (14:05)
== END 2021-06-22 00:47 ==
PROVIDERS: PCP Family Medicine; Visit Provider Family Medicine
DX: G31.1 Senile degeneration of brain, not elsewhere classified; H81.10 Benign paroxysmal vertigo, unspecified ear; R27.0 Ataxia, unspecified; R51.9 Headache, unspecified; I48.0 Paroxysmal atrial fibrillation; R10.9 Unspecified abdominal pain; D50.9 Iron deficiency anemia, unspecified; I48.91 Unspecified atrial fibrillation
CPT/HCPCS: 36415; 70553; 99213; 99214; 82565

== ENCOUNTER 2021-06-22 14:27 | Outpatient (REF) | payer OTHER, SELFPAY ==
[2021-06-22 09:50] LABS: Anion Gap 7.3 mmol/L (3-11); BUN 32 mg/dL (7-18); CO2 28.7 mmol/L (21.0-32.0); CREATININE 1.5 mg/dL (0.55-1.02); Calcium 9.1 mg/dL (8.5-10.1); Chloride 107 mmol/L (98-107); Estimated GFR 33.58 (mL/min/1.73m2); Glucose 132 mg/dL (74-106); Potassium 4.3 mmol/L (3.5-5.1); Sodium 143 mmol/L (136-145)
[2021-06-22 09:54] LABS: HGB 9.2 g/dL (11.2-15.7)
[2021-06-22 10:04] LABS: HCT 29.5 % (36.0-46.0)
== END 2021-06-22 14:28 | disposition home or self-care (01) ==
LOC: LBN 14:27
PROVIDERS: PCP Family Medicine; Visit Provider Surgery
DX: D50.9 Iron deficiency anemia, unspecified (principal); R42 Dizziness and giddiness; D64.9 Anemia, unspecified
CPT/HCPCS: 80048; 85014; 85018

== ENCOUNTER 2021-06-27 21:10 | Outpatient (REF) | payer OTHER, SELFPAY ==
[2021-06-27 20:12] LABS: HCT 29.8 % (36.0-46.0); HGB 9.1 g/dL (11.2-15.7)
[2021-06-27 20:16] LABS: Anion Gap 7.9 mmol/L (3-11); BUN 30 mg/dL (7-18); CO2 27.1 mmol/L (21.0-32.0); CREATININE 1.3 mg/dL (0.55-1.02); Calcium 8.9 mg/dL (8.5-10.1); Chloride 108 mmol/L (98-107); Estimated GFR 39.61 (mL/min/1.73m2); Glucose 150 mg/dL (74-106); Potassium 4.4 mmol/L (3.5-5.1); Sodium 143 mmol/L (136-145)
== END 2021-06-27 21:11 | disposition home or self-care (01) ==
LOC: NCHCN 21:10
PROVIDERS: PCP Family Medicine; Visit Provider Family Medicine
DX: E11.9 Type 2 diabetes mellitus without complications (principal); I10 Essential (primary) hypertension; D50.9 Iron deficiency anemia, unspecified
CPT/HCPCS: 80048; 85014; 85018

== ENCOUNTER 2021-07-04 15:56 | Outpatient (CLI) | payer OTHER, SELFPAY ==
[2021-07-04 09:36] LABS: Abs Immature Grans 0.03 10^3/uL (0.0-0.06); Absolute Basophil Count 0.03 10^3/uL (0.0-0.2); Absolute Eosinophil Count 0.22 10^3/uL (0.0-0.7); Absolute Lymphocyte Count 1.11 10^3/uL (1.2-3.4); Absolute Monocyte Count 0.65 10^3/uL (0.1-0.8); Basophils % 0.6; Eosinophils % 4.6; HCT 34.5 % (36.0-46.0); HGB 10.5 g/dL (11.2-15.7); Immature Grans % 0.6; Lymphocytes % 23.4; MCH 29.7 pg (27.0-33.0); MCHC 30.4 % (32.0-36.0); MCV 97.7 fL (80-95); MPV 10.7 fL (8.0-11.0); Monocytes % 13.7; Neutrophils % 57.1; Nucleated RBC 0 %; Platelet Count 161 10^3/uL (130-400); RBC 3.53 10^6/uL (3.93-5.22); RDW 17.7 % (11.7-14.6); RDW-SD 62.7 fL; WBC 4.74 10^3/uL (4.4-10.8)
[2021-07-04 09:53] LABS: Albumin 3.4 g/dL (3.4-5.0); BUN 36 mg/dL (7-18); Bilirubin, Total 0.5 mg/dL (0.2-1.0); CREATININE 1.5 mg/dL (0.55-1.02); Estimated GFR 33.58 (mL/min/1.73m2); Glucose 158 mg/dL (74-106); Total Protein 7.3 g/dL (6.4-8.2)
[2021-07-04 09:54] LABS: ALT 45 U/L (14-59); AST 60 U/L (15-37); Alkaline Phosphatase 148 U/L (46-116); Anion Gap 7.3 mmol/L (3-11); CO2 25.7 mmol/L (21.0-32.0); Chloride 108 mmol/L (98-107); LDH 234 U/L (81-234); Potassium 5.2 mmol/L (3.5-5.1); Sodium 141 mmol/L (136-145)
== END 2021-07-04 15:57 | disposition home or self-care (01) ==
LOC: LBO 15:58
PROVIDERS: PCP Family Medicine; Visit Provider Internal Medicine Hematology & Oncology
DX: C85.80 Other specified types of non-Hodgkin lymphoma, unspecified site (principal)
CPT/HCPCS: 36415; 80053; 83615; 85025

== ENCOUNTER 2021-07-16 12:49 | Outpatient (REF) | payer OTHER, SELFPAY ==
[2021-07-16 15:32] LABS: HCT 34.1 % (36.0-46.0); HGB 10.8 g/dL (11.2-15.7); MCH 30.8 pg (27.0-33.0); MCHC 31.7 % (32.0-36.0); MCV 97.2 fL (80-95); MPV 11.6 fL (8.0-11.0); Platelet Count 173 10^3/uL (130-400); RBC 3.51 10^6/uL (3.93-5.22); RDW 15.9 % (11.7-14.6); RDW-SD 55.8 fL
[2021-07-16 15:56] LABS: Anion Gap 8.1 mmol/L (3-11); BUN 23 mg/dL (7-18); CO2 27.9 mmol/L (21.0-32.0); CREATININE 1.3 mg/dL (0.55-1.02); Calcium 9.1 mg/dL (8.5-10.1); Chloride 108 mmol/L (98-107); Estimated GFR 39.61 (mL/min/1.73m2); Ferritin 95 ng/mL (8-252); Glucose 170 mg/dL (74-106); Potassium 4.2 mmol/L (3.5-5.1); Sodium 144 mmol/L (136-145)
[2021-07-16 16:44] LABS: NT-proBNP 341 pg/mL (<300)
== END 2021-07-16 12:50 | disposition home or self-care (01) ==
LOC: NCHCN 12:49
PROVIDERS: PCP Family Medicine; Visit Provider Family Medicine
DX: N18.9 Chronic kidney disease, unspecified (principal); D50.9 Iron deficiency anemia, unspecified; I51.9 Heart disease, unspecified
CPT/HCPCS: 80048; 85027; 82728; 83880

== ENCOUNTER → 2021-07-24 09:25 | Outpatient (BNVA) | payer OTHER, SELFPAY | PROVIDERS: PCP Family Medicine; Referring Provider Family Medicine; Visit Provider Surgery | DX: R10.84 Generalized abdominal pain (principal); D50.9 Iron deficiency anemia, unspecified; K92.1 Melena | CPT/HCPCS: 99212; 99213 ==

== ENCOUNTER 2021-08-01 11:57 | Outpatient (REF) | payer OTHER, SELFPAY ==
[2021-08-01 15:38] LABS: COMMENT (LAB VIEW ONLY) 9.58 mg/dL; Microalb ug/mg Crea 49.1 ug/mg Cr
== END 2021-08-01 11:58 | disposition home or self-care (01) ==
LOC: NCHCN 11:57
PROVIDERS: PCP Family Medicine; Visit Provider Family Medicine
DX: E11.9 Type 2 diabetes mellitus without complications (principal)
CPT/HCPCS: 82043; 82570

== ENCOUNTER 2021-08-13 01:52 | Outpatient (CLI) | payer OTHER, SELFPAY ==
[2021-08-13 13:34] LABS: Source Nasal/Nares
[2021-08-13 18:38] LABS: COVID-19 PCR Negative (Negative)
== END 2021-08-13 01:53 | disposition home or self-care (01) ==
LOC: LBO 01:53
PROVIDERS: PCP Family Medicine; Visit Provider Surgery
DX: Z20.822 Contact with and (suspected) exposure to COVID-19 (principal); Z01.818 Encounter for other preprocedural examination
CPT/HCPCS: 87635

== ENCOUNTER 2021-08-15 10:29 | Day surgery (SDC) | payer OTHER, SELFPAY ==
--- NOTE | 2021-08-14 11:15 | BOWEL_PTH ---
PATIENT: Silvia Vega LOC: [facility] U#:[id number] AGE/SX: 76/F ROOM: RE08/15/[address]: Karli Potts MD : [id number] BED: DIS: 08/15/2021 SPEC #: [id number] RECD: 08/15/21 12:58 STATUS: JASON REQ #: [id number] KYLAH: 08/14/21 11:[address]: Karli Potts DEPT: Surgical Specimen RECD BY: Tere Potter ENTERED: 08/15/21 13:01 SP TYPE: Bowel OTHR DR: Jena Mitchell Tissues: 1 - STOMACH BIOPSY 2 - STOMACH BIOPSY 3 - ESOPHAGUS BIOPSY 4 - BIOPSY BOWEL 5 - BIOPSY BOWEL 6 - BIOPSY BOWEL 7 - BIOPSY BOWEL 8 - BIOPSY BOWEL 9 - BIOPSY BOWEL Procedures: GROSS AND MICRO LEVEL 4 IMMUNOPEROXIDASE STAIN Comments: [id number]
--- NOTE | 2021-08-15 06:49 | COLE_ITS ---
Colonoscopy Report Date of procedure: 08/15/21 Pre-op diagnosis general: anemia, abdominal pain Post-op diagnosis procedure note: other (Gastritis, colorectal polyps) Procedure: 1. EGD with biopsies 2. Colonoscopy with polypectomy Surgeon: Karli Potts Anesthesia Type: General:No Airway (Herminio Wahl, CAREY) Estimated blood loss (mL): 5 Pathology: other (Gastric bx, GE junction bx, ascending polyps x4, transverse polyp, descending polyp, and rectal polyps x3) Complications: None Disposition: same day Indications: Vee is feeling better since the last time I have seen her. She is no longer shaking and her vertigo has quieted down. Her shortness of breath has also improved. She saw pulmonology who felt that most of her shortness of breath was due to deconditioning. She has not had any more hematochezia since her second visit to the emergency department. Her hemoglobin has continued to improve. She is now complaining of more diffuse abdominal pain bloating intermittent nausea and anorexia. We will proceed with colonoscopy and upper endoscopy at this time. Risks, benefits and complications have been reviewed. Complications include but are not limited to bleeding, pain, perforation, missed small lesion/polyp, sore throat, aspiration and adverse reaction to the medications. Questions were entertained and answered to their satisfaction and they wished to proceed. No guarantees were given or implied. Colonoscopy and esophagogastroduodenoscopy under sedation Prep: Miralax/Dulcolax Procedure Start Time: 11:16 Procedure End Time: 12:01 Retraction Time: 23 minutes Findings: moderate gastritis despite omeprazole 40 mg BID and Carafate, bx done to rule out H. pylori Multiple polyps and diverticulosis Procedure Description: After informed consent was obtained the patient was take to the procedure room and placed in a supine position. Monitors were a pplied and a time out was done. The patients name, date of , procedure type, allergies to medications and metal in their body was reviewed. A bite block was placed and the patient was sedated. Once sedated and comfortable the gastroscope was advanced through the oropharynx which was grossly normal into the esophagus. The proximal and mid- esophagus were normal. In the distal esophagus there was no inflammation noted. The scope was advanced into the stomach and through the pylorus into the 3rd portion of the duodenum. The duodenum was noted to be normal. The scope was retracted back into the stomach. There was moderate inflammation noted in the antrum and body. Biopsies were done to rule out H. pylori. There were no ulcers. The scope was retro-flexed. The cardia and fundus were noted to be normal. There was no hiatal hernia noted. The scope was retracted back into the esophagus and biopsies were done of the GE junction to rule out Mcqueen's. The Z line was regular. The GE junction was at 41 cm. While the patient was still sedated they were placed in a left decubitous position. A rectal exam was done. External exam was normal. Internal exam revealed a normal sphincter tone and no palpable masses. The scope was then introduced and retro-flexed. No internal hemorrhoids, masses or polyps were identified on retroflexion. The scope was then advanced to the cecum without difficulty. The ileocecal valve and appendiceal orifice were identified. The prep was adequate. The scope was then slowly retracted over 23 minutes back into the rectum. Polyps were removed with hot snare in the ascending colon x2. Polyps were removed with cold forceps in the ascending colon x2, transverse colon x1, descending colon x1, and rectum x3. There was moderate díaz- diverticulosis noted. The scope was removed and the patient was woken up and taken back to Same day surgery in stable condition. The patient tolerated the procedure well and there were no immediate complications. Follow up: will depend on final pathology results
--- NOTE | 2021-08-15 06:50 | W.PM.DSUDISC ---
Discharge Plan Disposition Patient Disposition: HOME Condition: Good Discharge Details Reason For Visit: Colonoscopy/EGD Attending Provider: Karli Potts Primary Care Provider: Jena Mitchell Home Meds and New Rx's Prescriptions: Continued gabapentin 100 mg capsule 100 mg PO QHS RF: 0 ferrous sulfate [Feosol] 325 mg (65 mg iron) tablet 650 mg PO DAILY RF: 0 meclizine 12.5 mg tablet See Rx Instructions PO DAILY Qty: 30 RF: 3 diltiazem HCl [Cartia XT] 300 MG capsule,extended release 24hr 300 mg PO DAILY RF: 0 escitalopram oxalate 20 MG tablet 20 mg PO DAILY RF: 0 Victoza 2-Tray 0.6 mg/0.1 mL (18 mg/3 mL) pen injector 0.6 mg subcut DAILY RF: 0 irbesartan 300 mg tablet 150 mg PO DAILY RF: 0 fluticasone propionate [Allergy Relief (fluticasone)] 50 mcg/actuation spray,suspension 2 spray intranasal DAILY RF: 0 diphenhydramine-acetaminophen [Acetaminophen PM] 25-500 mg Tablet 1 tab PO HS PRNRF: 0 levothyroxine 125 mcg Tablet 125 mcg PO DAILY RF: 0 furosemide [Lasix] 20 mg tablet 40 mg PO DAILY RF: 0 sucralfate 1 gram Tablet 1 g PO QACHS Qty: 120 RF: 0 pantoprazole 40 mg Tablet,Delayed Release (Dr/Ec) 40 mg PO BID@0730,2000 Qty: 60 RF: 0 Discontinued bisacodyl [Dulcolax (bisacodyl)] 5 mg tablet,delayed release (DR/EC) 5 mg PO ONCE Qty: 4 RF: 0 polyethylene glycol 3350 17 gram/dose powder 17 g PO ONCE Qty: 238 RF: 0 Discharge Instructions Instructions: Diet for Stomach Ulcers and Gastritis (ED), Gastritis (DC), Colorectal Polyps (DC) Additional Instructions: Findings: inflammation of the stomach multiple polyps diverticulosis Follow up: I will call you with results Please call if you develop: fevers >101.5 Nausea or Vomiting Abdominal pain that is not transient Rectal bleeding that is more then a tbsp A hard abdomen and inability to pass gas DAY SURGERY UNIT POST ENDOSCOPY INSTRUCTIONS Instructions for everyone who is given Anesthesia: For your safety, please do the following for the next 24 Hours: a. Do not drive or operate dangerous equipment b. Do not drink alcohol beverages or use any recreational drugs for the first 24 hours or while taking pain medications. The medications in your body may have a reaction that can be dangerous. c. Do not make any important decisions or sign any important papers 1. Generally there are no restrictions on your activity after a day or so has gone by, but you may feel a bit fatigued for a few days. 2. After you arrive home you may have a light meal and return to a normal diet as you can tolerate it without feeling sick to your stomach. 3. After surgery, you may feel pain or discomfort. This should be only transient, but if it persists please contact your doctor. 4. If there are any questions regarding the findings of your procedure, please feel free to contact your doctor. 6. If you are unable to contact your doctor with a problem, contact the hospital at [phone]. 7. Continue all your regular medications unless directed otherwise. I understand the above instructions and have no questions. Signature of Patient or Responsible Adult Escort Date/Time Name of Responsible Adult Escort Signature of Nurse Date/Time Activity:: Activity as Tolerated Diet:: low acid and high fiber Discharge Orders Discharge Orders: Discharge Order (Routine); Ordered 08/15/21 Ordered By: Karli Potts
[2021-08-15 10:49] VITALS: BP 144/82; PULSE 78; RESP 20; TEMP 36.4; O2SAT 95
[2021-08-15] MEDS: Lactated Ringers 1,000 ML 80 ML IV (10:54)
--- NOTE | 2021-08-15 10:55 | W.ANESPRE ---
General Info Date of Service Date Performed: 08/15/21 Height: 5 ft 3 in Weight: 106.367 kg Body Mass Index (BMI): 41.5 Surgical Procedure: Operation Date: 08/15/21 11:20 Proposed Procedures Side Surgeon p Colonoscopy/Gastroscopy Karli Potts MD Meds Allergies and Home Medications Allergies Allergy/AdvReac Type Severity Reaction Status Date / Time tamoxifen Allergy Intermediate liver Verified 08/15/21 10:45 complications amlodipine AdvReac Intermediate leg pain Verified 08/15/21 10:45 atenolol AdvReac Intermediate leg pain Verified 08/15/21 10:45 doxazosin AdvReac Intermediate leg pain Verified 08/15/21 10:45 enalapril AdvReac Intermediate leg pain Verified 08/15/21 10:45 glipizide AdvReac Intermediate body aches Unverified 08/15/21 10:45 lisinopril AdvReac Intermediate leg pain Verified 08/15/21 10:45 sertraline AdvReac Intermediate leg pain Verified 08/15/21 10:45 simvastatin [From Zocor] AdvReac Intermediate leg pain Verified 08/15/21 10:45 Hfprttq-TIL-CiM Reductase AdvReac Intermediate leg pains Unverified 08/15/21 10:45 Inhibitor [Qyvszob-Dum-Ehr Reductase Inhibitor] ticlopidine AdvReac Intermediate leg pain Verified 08/15/21 10:45 valsartan AdvReac Intermediate leg pain Verified 08/15/21 10:45 Home Medication Medication Instructions Recorded diltiazem HCl [Cartia XT] 300 mg PO DAILY tab-cap 02/29/16 escitalopram oxalate 20 mg PO DAILY tab-cap 02/29/16 diphenhydramine-acetaminophen 1 tab PO HS PRN 03/31/19 [Acetaminophen PM] gabapentin 100 mg capsule 100 mg PO QHS 12/11/20 fluticasone propionate 50 2 spray INTRANASAL DAILY 04/25/21 mcg/actuation nasal spray,suspension irbesartan 300 mg tablet 150 mg PO DAILY 04/25/21 liraglutide 0.6 mg/0.1 mL (18 mg/3 0.6 mg SUBCUT DAILY 04/25/21 mL) subcutaneous pen injector furosemide [Lasix] 40 mg PO DAILY 06/06/21 levothyroxine 125 mcg PO DAILY 06/06/21 pantoprazole 40 mg PO BID@0730,1999 #60 tab 06/08/21 sucralfate 1 g PO QACHS #120 tab 06/08/21 ferrous sulfate 325 mg (65 mg 650 mg PO DAILY tab 06/22/21 iron) tablet meclizine 12.5 mg tablet See Rx Instructions PO DAILY #30 06/22/21 tab bisacodyl 5 mg tablet,delayed 5 mg PO ONCE #4 tab 07/24/21 release polyethylene glycol 3350 17 17 g PO ONCE #238 g 07/24/21 gram/dose oral powder Current Visit Medications: Current Medications Generic Name Dose Route Start Last Admin Trade Name Freq PRN Reason Stop Dose Admin Hyoscyamine Sulfate 0.125 mg 08/15/21 06:51 Hyoscyamine 0.125 Mg Sl/Oral/Chew SL DIRECTED PRN Ringer's Solution 1,000 mls @ 80 mls/hr 08/15/21 06:00 IV 09/13/21 23:59 INFUSION [facility] IV Miscellaneous Supplies 1 each 08/15/21 06:00 Iv Access IV 09/13/21 23:59 DIRECTED [facility] Ondansetron HCl 4 mg 08/15/21 06:51 Ondansetron 4 Mg/2 Ml Vial IVP Q4H PRN PRN Nausea / Vomiting Sodium Chloride 0 ml 08/15/21 06:00 Normal Saline Flush 10 Ml Syr IV 09/13/21 23:59 PRN PRN Sodium Chloride 0 ml 08/15/21 06:00 Normal Saline 10 Ml Vial IJ 09/13/21 23:59 DIRECTED PRN Sterile Water 0 ml 08/15/21 06:00 Water,Injection,Sterile 10 Ml Vial IJ 09/13/21 23:59 DIRECTED PRN PFSH Active Problems Active Problems: Problem Status Onset Code Abdominal pain 09/23/13 R10.9 Diarrhea 09/23/13 R19.7 RUQ abdominal pain R10.11 Right flank pain R10.9 Diabetes mellitus E11.9 SVT (supraventricular tachycardia) I47.1 History of syncope Z87.898 Renal artery stenosis I70.1 GERD (gastroesophageal reflux disease) K21.9 Cirrhosis of liver not due to alcohol Sepsis A41.9 DVT prophylaxis CICI (acute kidney injury) N17.9 E coli bacteremia R78.81 E. coli UTI N39.0, B96.20 Peripheral vascular angioplasty status with implants and grafts Z95.820 Nasal obstruction J34.89 Hypertrophy of inferior nasal turbinate J34.3 Tendinitis of long head of biceps brachii of left shoulder M75.22 Left rotator cuff tear M75.102 Aortic stenosis I35.0 Dyspnea on exertion R06.00 A-fib I48.91 Acute UTI N39.0 Acute anemia D64.9 Lower GI bleed K92.2 Melena K92.1 Urinary tract infection N39.0 Anemia D64.9 Hematochezia K92.1 Medical History Medical History Breast Cancer Diabetes mellitus Difficult airway Per [facility] [place] [place] anesthesia notes she is a difficult airway. She has had previous intubations with VL grade 1 view. Also easy mask with 90 mm OPA, and successful LMA placement in the past. Dizziness Dyslipidemia Gastro-esophageal reflux disease without esophagitis Hyperlipidemia Hypertension Hypothyroidism Lymphoma Nasal septal deviation STEVENS (nonalcoholic steatohepatitis) TERRY (obstructive sleep apnea) PVD (peripheral vascular disease) Recurrent UTI (03/15/16) Sensorineural hearing loss of both ears Shortness of breath SVT (supraventricular tachycardia) F/U with Dr. Sweet Syncope Type 2 diabetes mellitus with diabetic peripheral angiopathy without gangrene Medical History Comments:: Hx of Difficult airway Surgical History Surgical History Excision of neck mass Nail removal (toe) Partial mastectomy with sentinal node Pt. states this is incorrect, she had a lumpectomy Rotator Cuff Repair Tobacco Smoking/Tobacco Use Status: Never Alcohol Alcohol Intake: never Substance Use Substance use: Never Substance use type: does not use Vital Signs and Lab Results Vital Signs Most Recent Vital Signs in EMR: Most Recent Vital Signs Temp Pulse Resp BP Pulse Ox 36.4 C L 78 20 144/82 H 95 08/15/21 10:49 08/15/21 10:49 08/15/21 10:49 08/15/21 10:49 08/15/21 10:49 Point of Care Results Point of Care Results: Finger Stick Blood Glucose 153 08/15/21 10:48 Lab Results Blood Type / Crossmatch: No Data to Display Complete Blood Count: No Data to Display Complete Metabolic Panel: No Data to Display Liver Function Panel: No Data to Display Coagulation Panel: No Data to Display Cardiac Panel: No Data to Display Arterial Blood Gas: No Data to Display Venous Blood Gas: No Data to Display Pancreas Panel: No Data to Display Thyroid Panel: No Data to Display Infectious Disease: Coronavirus (COVID-19)(PCR) Negative (Negative) 08/13/21 11:23 08/13/21 Coronavirus 2019 Source Nasal/Nares 08/13/21 11:23 08/13/21 Blood Cultures: No Data to Display Toxicology Panel: No Data to Display Imaging and Studies Imaging and Studies Study information below may be from another EMR and interpreted by another provider. Please see original notes in EMR for more complete details. EKG Summary: 05/2012: sinus rhythm. Stress Test Summary: 01/12: 6 mets, exercise was stopped due to fatigue, no symptoms of ischemia, LVEF 63%, no WMA. Echocardiogram Summary: 06/14: LVEF 60-65%, mild MR. mild , trace AR. Carotid Artery Summary:: 2019: Right <50%stenosis, Left <50% stenosis. left vertebral artery occlusion. Pulmonary Function Summary: 05/15: normal. Anesthesia Assessment and Plan Anesthesia History Personal History: Other (Known difficult airway ) Family History: No Family History of Anesthesia Complications Exercise Tolerance Exercise Tolerance: Metabolic Equivalents>4 Pertinent Negatives Pertinent Negatives: No Symptoms of GERD, No Major Cardiovascular Symptoms or Complaints (Hx CHF, A FIB) and No Major Pulmonary Symptoms or Complaints (TERRY wears CPAP every night 20 years) Cardiac & Pulmonary Exam Cardiac Exam: Normal S1/S2 Heart Sounds Pulmonary Exam: Clear Bilateral Breath Sounds Implantable Cardiac Device Does patient have a Pacemaker or an ICD?: No Airway Exam Known Difficult Airway: Yes Mallampati Class: 2 Mouth Opening: Normal (> 3cm) Thyromental Distance: Less than 3 cm Neck Range of Motion: Limited ROM Neck Circumference: Thick Teeth Condition: Other ASA Classification ASA Score: ASA 3 Emergency Case?: No NPO Status NPO Status: NPO Clears >2 hours, Solids >8 hours Anesthesia Plan Resuscitation Status: Full Code Anesthesia Technique: General Anesthesia Airway Planned: Natural Airway Monitors Used: Standard Monitors
[2021-08-15 11:01] VITALS: BMI 41.5
[2021-08-15 12:15] VITALS: BP 125/61; PULSE 67; PULSE 68; RESP 12; RESP 18; TEMP 36; TEMPC 36.2; O2SAT 94; O2SAT 98
--- NOTE | 2021-08-15 12:15 | W.ANESPOSTOP ---
Postoperative Evaluation Date, Time and Location Date Performed: 08/15/21 Time Performed: 12:15 Patient Location: Day Surgery Unit Vital Signs Most Recent Imported Vital Signs: Most Recent Vital Signs Temp Pulse Resp BP Pulse Ox 36.4 C L 78 20 144/82 H 95 08/15/21 10:49 08/15/21 10:49 08/15/21 10:49 08/15/21 10:49 08/15/21 10:49 Most Recent Manually Entered Vital Signs: Adult Blood Pressure: 125/61 Heart Rate: 68 Respirations: 12 Oxygen Saturation (%): 98 Temperature (C): 36.2 C Pain Score (0-10 Scale): 0 Pain Score Most Recent Pain Score: Most Recent Pain Score Pain Level 0 08/15/21 10:49 Assessment Mental Status: Awake (Alert & Oriented to Patient Baseline) Airway and Respiratory Function: Patent airway with normal (patient baseline) respiratory exam Cardiovascular Function: Hemodynamically Stable Hydration Status: Adequately Hydrated Nausea & Vomiting: No Nausea or Vomiting Pain: Pt. Denies Any Pain Peripheral Nerve Block: Patient did not receive a nerve block
[2021-08-15 12:49] VITALS: BP 142/59; PULSE 63; RESP 16; TEMP 36.5; O2SAT 95
== END 2021-08-15 10:30 | disposition home or self-care (01) ==
LOC: SUR 10:30
PROVIDERS: PCP Family Medicine; Visit Provider Surgery
PROC: (CPT 45385; principal; 2021-08-15 11:15)
DX: D64.9 Anemia, unspecified (principal); K29.50 Unspecified chronic gastritis without bleeding; K21.00 Gastro-esophageal reflux disease with esophagitis, without bleeding; K21.9 Gastro-esophageal reflux disease without esophagitis; D12.2 Benign neoplasm of ascending colon; D12.3 Benign neoplasm of transverse colon; D12.4 Benign neoplasm of descending colon; K62.1 Rectal polyp; K57.30 Diverticulosis of large intestine without perforation or abscess without bleeding; I48.91 Unspecified atrial fibrillation; I35.0 Nonrheumatic aortic (valve) stenosis
CPT/HCPCS: 45385; 45380; 43239; 88305; 88361

== ENCOUNTER 2021-10-25 02:19 | Emergency (ER) | payer OTHER, SELFPAY ==
[2021-10-25] VITALS (24 sets, daily range): BP systolic 118–158; BP diastolic 47–100; PULSE 61–74; RESP 14–22; TEMP 36.3–36.6; O2SAT 92–97
--- NOTE | 2021-10-25 02:15 | RT.EKG_ITS ---
APPROVED REPORT Exam: Resting ECG Reason for Exam: ruq pain Patient Location: E HR:64 bpm ECG Measurements Heart Rate 64 AXIS IN 196 P 62 QRSd 74 QRS 67 QT 425 T 54 QTc 439 Conclusion Sinus rhythm...normal P axis, V-rate 60- 99 Low voltage, precordial leads...precordial leads <1.0mV Physician: no stemi
[2021-10-25 02:37] LABS: Abs Immature Grans 0.02 10^3/uL (0.0-0.06); Absolute Basophil Count 0.04 10^3/uL (0.0-0.2); Absolute Eosinophil Count 0.24 10^3/uL (0.0-0.7); Absolute Monocyte Count 0.67 10^3/uL (0.1-0.8); Absolute Neutrophil Count 4.49 10^3/uL (1.2-6.7); Basophils % 0.6; Eosinophils % 3.6; HCT 38.2 % (36.0-46.0); HGB 12.1 g/dL (11.2-15.7); Immature Grans % 0.3; MCH 30.9 pg (27.0-33.0); MCHC 31.7 % (32.0-36.0); MCV 97.7 fL (80-95); MPV 10.7 fL (8.0-11.0); Monocytes % 10.1; Neutrophils % 67.4; Nucleated RBC 0 %; Platelet Count 144 10^3/uL (130-400); RBC 3.91 10^6/uL (3.93-5.22); RDW 14.1 % (11.7-14.6); RDW-SD 50.9 fL; WBC 6.66 10^3/uL (4.4-10.8)
[2021-10-25] MEDS: Ondansetron 4 MG/2 ML VIAL IVP (02:38)
[2021-10-25 02:53] LABS: ALT 48 U/L (14-59); AST 45 U/L (15-37); Albumin 3.7 g/dL (3.4-5.0); Alkaline Phosphatase 157 U/L (46-116); Anion Gap 10.2 mmol/L (3-11); BUN 26 mg/dL (7-18); Bilirubin, Total 0.5 mg/dL (0.2-1.0); CO2 24.8 mmol/L (21.0-32.0); CREATININE 1.5 mg/dL (0.55-1.02); Calcium 9.2 mg/dL (8.5-10.1); Chloride 104 mmol/L (98-107); Estimated GFR 33.58 (mL/min/1.73m2); Glucose 172 mg/dL (74-106); Lipase 142 U/L (73-393); Potassium 4.7 mmol/L (3.5-5.1); Sodium 139 mmol/L (136-145); Total Protein 7.2 g/dL (6.4-8.2); Troponin I < 50 ng/L (<or=60)
[2021-10-25 03:00] LABS: Bilirubin Negative (Negative); Blood Negative (Negative); Clarity Clear (Clear); Glucose Negative (Negative); Ketones Negative (Negative); Leukocyte Esterase Trace (Negative); Nitrite Negative (Negative); Specific Gravity >= 1.030 (1.005-1.025); Urobilinogen 0.2 EU/dL (Up TO 0.2)
--- NOTE | 2021-10-25 03:00 | DI.CT_ITS ---
Exam(s) CT ABDOMEN PELVIS WO EXAM: CT ABDOMEN PELVIS WO CLINICAL HISTORY: ruq pain, vomiting, eval gb. TECHNIQUE: Imaging Protocol: Axial computed tomography images with coronal and sagittal reformatted images were created and reviewed. Oral: no COMPARISON: CT CT ABDOMEN PELVIS WO from 06/18/2021 FINDINGS: ABDOMEN: Lung Bases: Normal where visualized. Liver: Nodular, cirrhotic appearance. No measurable mass. Gallbladder and biliary tract: Gallbladder appears somewhat contracted. No radiodense calculus or di lation. Pancreas: Normal density, no abnormal calcifications or inflammatory process. Spleen: Normal. Kidneys: Normal size, contour and axis. No radiodense stones or obstructive uropathy. No masses seen. Adrenal glands: No masses seen. Lymph nodes: Within normal limits. Abdominal Aorta: Abdominal portion non-dilated. Severe atherosclerotic changes. Bilateral renal sam ry stents. Stomach and small bowel: Food and fluid are noted in the stomach. No abnormal gastric distension. D ilatation of loops of small bowel with fecalization. No discrete transition point identified. PELVIS: Bladder: Empty. Bowel: Diverticulosis without evidence of diverticulitis. Normal appendix. Moderate quantity of sto ol. Peritoneal cavity: No ascites, collection or mesenteric inflammatory response. Reproductive organs: Within normal limits. Bones: Left hip prosthesis creating artifact. Degenerative disc changes, most severe at L2-3 and L3- 4. IMPRESSION: Small-bowel obstruction. No change in cirrhotic appearing liver. RADIATION DOSE DELIVERED: 1,039.3mGy.cm Total DLP DATA REPOSITORY: All CT scans at this facility are submitted to the National Radiology Data Registry (NRDR) Dose Index Registry (DIR) with the [employer] ([employer]). RADIATION OPTIMIZATION: All CT scans at this facility use at least one of these dose optimization te chniques: automated exposure control; mA and/or kV adjustment per patient size (includes targeted exa ms where dose is matched to clinical indication); or iterative reconstruction.
--- NOTE | 2021-10-25 03:03 | ED.GENADUL_ITS ---
Discharge Plan Disposition Patient Disposition: [facility] Condition: Improving Discharge Details Chief Complaint: Abd Prob Clinical Impression: SBO (small bowel obstruction) Primary Care Provider: Jena Mitchell ED Provider: Saeid Kent Home Meds and New Rx's Prescriptions: No Action gabapentin 100 mg capsule 100 mg PO QHS 0RF ferrous sulfate [Feosol] 325 mg (65 mg iron) tablet 650 mg PO DAILY 0RF diltiazem HCl [Cartia XT] 300 MG capsule,extended release 24hr 300 mg PO DAILY 0RF escitalopram oxalate 20 MG tablet 20 mg PO DAILY 0RF Victoza 2-Tray 0.6 mg/0.1 mL (18 mg/3 mL) pen injector 0.6 mg subcut HS 0RF irbesartan 300 mg tablet 150 mg PO DAILY 0RF fluticasone propionate [Allergy Relief (fluticasone)] 50 mcg/actuation spray,suspension 2 spray intranasal DAILY PRN0RF Rx Instructions: administer into each nostril diphenhydramine-acetaminophen [Acetaminophen PM] 25-500 mg Tablet 1 tab PO HS PRN0RF levothyroxine 125 mcg Tablet 125 mcg PO DAILY 0RF furosemide [Lasix] 20 mg tablet 40 mg PO DAILY 0RF sucralfate 1 gram Tablet 1 g PO QACHS Qty: 120 0RF meclizine 12.5 mg tablet See Rx Instructions PO DAILY PRN0RF Rx Instructions: take 1-2 tablets every 8 hours as needed for nausea. pantoprazole 40 mg tablet,delayed release (DR/EC) 40 mg PO BID 0RF Medical Decision Making This is a 76-year-old female with a past medical history of diabetes, hypertension, high cholesterol, hypothyroidism, peptic ulcer disease, previous SVT, not currently on any blood thinner, who presents today for evaluation of right upper quadrant abdominal pain. Patient states that for the last 2 to 3 hours she has had mild right upper quadrant abdominal pain bloating and nausea. She had hotdogs and macaroni and cheese for dinner. She denies any diarrhea or chest pain. Her right upper quadrant pain radiating to the right lateral aspect of her abdomen. She denies any dysuria, hematuria, numbness tingling or weakness. No history of heart attack or stroke.No other complaints at this ti me. Physical exam demonstrates minimal ruq tenderness. Negative murphys sign. Differential includes gallbladder pathology, pancreatitis, less likely cardiac. will monitor closely and reasess. [address] scan shows evidence of small bowel obstruction. No evidence of gallbladder pathology. Patient still feels distended and slightly nauseous. No vomiting here. We will place an NG tube. Laboratory work-up shows normal white count, no bandemia or left shift. Electrolytes are all normal, BUN is 26, creatinine 1.5, these are patient baseline. Transaminases normal, bilirubin normal, lipase normal. Troponin and EKG unremarkable. Urinalysis negative for significant infection. Currently there are no beds available at [facility]. We did reach out to [facility] and they spoke with the night hospitalist. He agrees with the assessment and plan and agrees for transfer. I have extensively reviewed the treatment plan with the patient. I have addressed all patient concerns at this time. I have also discussed the plan with the admitting physician and they agree with the current assessment and plan and have agreed to assume responsibility for the patient. All parties demonstrate verbal understanding and agreement with our assessment and plan at this time. The documentation in this chart was dictated using [employer] dictation software. Please excuse any dictation errors. At time of transfer the patient was reassessed and continued to demonstrate current medical stability. No signs of acute respiratory distress requiring intubation, hemodynamic instability requiring pressor support, or rapidly declining mental status. The patient is stable for transport. FINDINGS: Liver: Nodular hepatic cirrhosis. Gallbladder and bile ducts: The gallbladder is contracted but otherwise normal in appearance. Pancreas: Normal. No ductal dilation. Spleen: Normal. No splenomegaly. Adrenal glands: Normal. No mass. Kidneys and ureters: Normal. No hydronephrosis. Stomach and bowel: Dilated loops of proximal small bowel are noted measuring up to 3 cm with a collapsed appearance of distal small bowel loops. Findings are compatible with a small bowel obstruction. Consider adhesions a likely etiology. Colonic diverticulosis is present without evidence for inflammation. Appendix: No evidence of appendicitis. Intraperitoneal space: Unremarkable. No free air. No significant fluid collection. Vasculature: Unremarkable. No abdominal aortic aneurysm. Lymph nodes: Unremarkable. No enlarged lymph nodes. Urinary bladder: Unremarkable as visualized. Reproductive: Unremarkable as visualized. Bones/joints: Unremarkable. No acute fracture. Soft tissues: Unremarkable. IMPRESSION: 1. Nodular hepatic cirrhosis. 2. Small bowel obstruction. Thank you for allowing us to participate in the care of your patient. Dictated and Authenticated by: Kain Fournier MD 10/25/2021 3:27 AM Eastern Time ([place] & [place]) HPI General Date/Time Provider Initiated Documentation: 10/25/21 02:25 . HPI Narrative: This is a 76-year-old female with a past medical history of diabetes, hypertension, high cholesterol, hypothyroidism, peptic ulcer disease, previous SVT, who presents today for evaluation of right upper quadrant abdominal pain. Patient states that for the last 2 to 3 hours she has had mild right upper quadrant abdominal pain bloating and nausea. She had hotdogs and macaroni and cheese for dinner. She denies any diarrhea or chest pain. Her right upper quadrant pain radiating to the right lateral aspect of her abdomen. She denies any dysuria, hematuria, numbness tingling or weakness. No history of heart attack or stroke.No other complaints at this time. Related Data Home Medications Medication Instructions Recorded Confirmed diltiazem HCl 300 mg 300 mg PO DAILY tab-cap 02/29/16 10/25/21 capsule,extended release 24 hr (Cartia XT) escitalopram oxalate 20 mg tablet 20 mg PO DAILY tab-cap 02/29/16 10/25/21 diphenhydramine 25 1 tab PO HS PRN 03/31/19 10/25/21 mg-acetaminophen 500 mg tablet (Acetaminophen PM) gabapentin 100 mg capsule 100 mg PO QHS 12/11/20 10/25/21 fluticasone propionate 50 2 spray INTRANASAL DAILY PRN 04/25/21 10/25/21 mcg/actuation nasal spray,suspension (Allergy Relief (fluticasone)) irbesartan 300 mg tablet 150 mg PO DAILY 04/25/21 10/25/21 liraglutide 0.6 mg/0.1 mL (18 mg/3 0.6 mg SUBCUT HS 04/25/21 10/25/21 mL) subcutaneous pen injector (Victoza 2-Tray) furosemide 20 mg tablet (Lasix) 40 mg PO DAILY 06/06/21 10/25/21 levothyroxine 125 mcg tablet 125 mcg PO DAILY 06/06/21 10/25/21 sucralfate 1 gram tablet 1 g PO QACHS #120 tab 06/08/21 10/25/21 ferrous sulfate 325 mg (65 mg 650 mg PO DAILY tab 06/22/21 10/25/21 iron) tablet (Feosol) meclizine 12.5 mg tablet See Rx Instructions PO DAILY PRN 10/25/21 10/25/21 pantoprazole 40 mg tablet,delayed 40 mg PO BID 10/25/21 10/25/21 release Previous Rx's Medication Instructions Recorded sucralfate 1 gram tablet 1 g PO QACHS #120 tab 06/08/21 Allergies Allergy/AdvReac Type Severity Reaction Status Date / Time tamoxifen Allergy Intermediate liver Verified 10/25/21 02:30 complications amlodipine AdvReac Intermediate leg pain Verified 10/25/21 02:30 atenolol AdvReac Intermediate leg pain Verified 10/25/21 02:30 doxazosin AdvReac Intermediate leg pain Verified 10/25/21 02:30 enalapril AdvReac Intermediate leg pain Verified 10/25/21 02:30 glipizide AdvReac Intermediate body aches Unverified 10/25/21 02:30 lisinopril AdvReac Intermediate leg pain Verified 10/25/21 02:30 sertraline AdvReac Intermediate leg pain Verified 10/25/21 02:30 simvastatin [From Zocor] AdvReac Intermediate leg pain Verified 10/25/21 02:30 Khfeoei-NKD-XkY Reductase AdvReac Intermediate leg pains Unverified 10/25/21 02:30 Inhibitor [Lrmkmia-Jft-Udl Reductase Inhibitor] ticlopidine AdvReac Intermediate leg pain Verified 10/25/21 02:30 valsartan AdvReac Intermediate leg pain Verified 10/25/21 02:30 General Stated Complaint: Abd Prob JUANITA: 3 Review of Systems All systems reviewed & are unremarkable except as noted in HPI and below PFSH All Active Problems (Updated 10/25/21 @ 04:06 by Saeid Kent DO) SBO (small bowel obstruction) (Acute) Hyperplastic colon polyp (Acute) Tubular adenoma of colon (Acute) Diabetes mellitus (Chronic) SVT (supraventricular tachycardia) (Chronic) History of syncope (Chronic) Renal artery stenosis (Chronic) GERD (gastroesophageal reflux disease) (Chronic) 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 coli UTI (Acute) Peripheral vascular angioplasty status with implants and grafts (Acute) Nasal obstruction (Chronic) Hypertrophy of inferior nasal turbinate (Chronic) Tendinitis of long head of biceps brachii of left shoulder (Acute) Left rotator cuff tear (Acute) Aortic stenosis (Chronic) Dyspnea on exertion (Acute) A-fib (Chronic) Acute UTI (Acute) Acute anemia (Acute) Lower GI bleed (Acute) Melena (Acute) Urinary tract infection (Acute) Anemia (Chronic) Hematochezia (Acute) Medical History Breast Cancer Diabetes mellitus Difficult airway [place] [facility] [place] she is a difficult airway. She has had previous intubations with VL grade 1 view. Also easy mask with 90 mm OPA, and successful LMA placement in the past. Dizziness Dyslipidemia Gastro-esophageal reflux disease without esophagitis Hyperlipidemia Hypertension Hypothyroidism Lymphoma Nasal septal deviation STEVENS (nonalcoholic steatohepatitis) TERRY (obstructive sleep apnea) PVD (peripheral vascular disease) Recurrent UTI (03/15/16) Sensorineural hearing loss of both ears Shortness of breath SVT (supraventricular tachycardia) F/U with Dr. Sweet Syncope Type 2 diabetes mellitus with diabetic peripheral angiopathy without gangrene Surgical History Excision of neck mass History of colonoscopy (~07/2021) History of esophagogastroduodenoscopy (EGD) (~07/2021) Nail removal (toe) Partial mastectomy with sentinal node Pt. states this is incorrect, she had a lumpectomy Rotator Cuff Repair Social History Smoking/Tobacco Use Status: Never Smoking risk assessment performed?: Yes Alcohol Intake: never Drug use: Never Substance use type: does not use Do you feel safe at home: Yes Do you feel safe in your relationship?: Yes Female Reproductive History Menstrual Menopause type: natural Exam Narrative Exam Narrative: 1.Const: Well-nourished, Well-developed, appearing stated age 2.Eyes: PERRL, no conjunctival injection, and symmetrical lids. 3.ENT: Atraumatic external nose and ears. Moist MM. Neck: Symmetric, trachea midline, No thyromegaly. 4.CVS: +S1/S2, No murmurs or gallops. Peripheral pulses 2+ and equal in all extremities. Brisk capillary refill in all extremities. 5.RESP: Unlabored respiratory effort. Clear to auscultation bilaterally. No wheezes rales or rhonchi 6.GI: Soft, Nontender/Nondistended, No hepatosplenomegaly. No guarding or rebound. minimal RUQ tenderness, negative murpheys sign 7.MSK: Normocephalic/Atraumatic, Extremities w/o deformity or ttp No cyanosis or clubbing, Normal movement of all extremities 8.Skin: Warm, Dry. No rashes or lesions. 9.Neuro: manager customer II-XII grossly intact. Sensation grossly intact, no focal neurologic deficits. 10.Psych: (AAO) x3. Appropriate mood and affect Course Vital Signs Vital signs: Vital Signs Temperature 36.3 C L 10/25/21 02:19 Pulse 63 10/25/21 02:19 Respiratory Rate 22 10/25/21 02:19 Blood Pressure 158/59 H 10/25/21 02:19 Pulse Oximetry 97 10/25/21 02:19 Temperature 36.3 C L 10/25/21 02:19 Temperature Source Skin 10/25/21 02:19 Pulse 63 10/25/21 02:19 Respiratory Rate 22 10/25/21 02:19 Respiratory Effort Non-Labored 10/25/21 02:21 Blood Pressure 158/59 H 10/25/21 02:19 Blood Pressure Position Supine 10/25/21 02:19 Pulse Oximetry 97 10/25/21 02:19 Oxygen Delivery Method Room Air 10/25/21 02:19 Oxygen Flow Rate 0 10/25/21 02:19 Pain Level 0 10/25/21 02:21 Lab/Test Results Lab/Test Results: Laboratory Tests Range/Units 10/25/21 10/25/21 02:27 02:27 WBC (4.4-10.8) 10^3/uL 6.66 RBC (3.93-5.22) 10^6/uL 3.91 L Hgb (11.2-15.7) g/dL 12.1 Hct (36.0-46.0) % 38.2 MCV (80-95) fL 97.7 H MCH (27.0-33.0) pg 30.9 MCHC (32.0-36.0) % 31.7 L RDW (11.7-14.6) % 14.1 Plt Count (130-400) 10^3/uL 144 MPV (8.0-11.0) fL 10.7 Immature Gran % 0.3 Neutrophils % 67.4 Lymphocytes % 18.0 Monocytes % 10.1 Eosinophils % 3.6 Basophils % 0.6 Nucleated RBC % % 0 Absolute Neutrophils (1.2-6.7) 10^3/uL 4.49 Absolute Lymphocytes (1.2-3.4) 10^3/uL 1.20 Absolute Monocytes (0.1-0.8) 10^3/uL 0.67 Absolute Eosinophils (0.0-0.7) 10^3/uL 0.24 Absolute Basophils (0.0-0.2) 10^3/uL 0.04 Sodium (136-145) mmol/L 139 Potassium (3.5-5.1) mmol/L 4.7 Chloride (98-107) mmol/L 104 Carbon Dioxide (21.0-32.0) mmol/L 24.8 Anion Gap (3-11) mmol/L 10.2 BUN (7-18) mg/dL 26 H Creatinine (0.55-1.02) mg/dL 1.5 H Estimated GFR/1.73 m2 (mL/min/1.73m2) 33.58 Glucose (74-106) mg/dL 172 H Calcium (8.5-10.1) mg/dL 9.2 Total Bilirubin (0.2-1.0) mg/dL 0.5 AST (15-37) U/L 45 H ALT (14-59) U/L 48 Alkaline Phosphatase (46-116) U/L 157 H Troponin I (<or=60) ng/L < 50 Total Protein (6.4-8.2) g/dL 7.2 Albumin (3.4-5.0) g/dL 3.7 Lipase (73-393) U/L 142
[2021-10-25 03:04] LABS: Bacteria Few HPF (Negative); C & S Indicated? Yes; Casts Negative LPF (Negative); Crystals Negative HPF (Negative); Epithelial Cells Few HPF (Negative); Mucus Negative (Negative); RBC Negative HPF (0-2)
--- NOTE | 2021-10-25 03:27 | DI.VRAD_ITS ---
PROCEDURE INFORMATION: Exam: CT Abdomen And Pelvis Without Contrast Exam date and time: 10/25/2021 3:05 AM Age: 76 years old Clinical indication: Other: Ruq pain, vomiting, eval gb TECHNIQUE: Imaging protocol: Computed tomography of the abdomen and pelvis without contrast. Radiation optimization: All CT scans at this facility use at least one of these dose optimization techniques: automated exposure control; mA and/or kV adjustment per patient size (includes targeted exams where dose is matched to clinical indication); or iterative reconstruction. COMPARISON: CT ABDOMEN PELVIS WO 06/18/2021 6:58 PM FINDINGS: Liver: Nodular hepatic cirrhosis. Gallbladder and bile ducts: The gallbladder is contracted but otherwise normal in appearance. Pancreas: Normal. No ductal dilation. Spleen: Normal. No splenomegaly. Adrenal glands: Normal. No mass. Kidneys and ureters: Normal. No hydronephrosis. Stomach and bowel: Dilated loops of proximal small bowel are noted measuring up to 3 cm with a collapsed appearance of distal small bowel loops. Findings are compatible with a small bowel obstruction. Consider adhesions a likely etiology. Colonic diverticulosis is present without evidence for inflammation. Appendix: No evidence of appendicitis. Intraperitoneal space: Unremarkable. No free air. No significant fluid collection. Vasculature: Unremarkable. No abdominal aortic aneurysm. Lymph nodes: Unremarkable. No enlarged lymph nodes. Urinary bladder: Unremarkable as visualized. Reproductive: Unremarkable as visualized. Bones/joints: Unremarkable. No acute fracture. Soft tissues: Unremarkable. IMPRESSION: 1. Nodular hepatic cirrhosis. 2. Small bowel obstruction. Dictated and Authenticated by: Kain Fournier MD. Ordering:MILADY Breaux MD
[2021-10-25] MEDS: Benzocaine 20% 60 ML CAN (04:11)
[2021-10-25 04:19] LABS: Source Nasal/Nares
[2021-10-25 04:56] LABS: COVID-19 PCR Negative (Negative)
== END 2021-10-25 04:38 | disposition short-term general hospital (02) ==
PROVIDERS: Emergency Provider Student in an Organized Health Care Education/Training Program; PCP Family Medicine
DX: K56.609 Unspecified intestinal obstruction, unspecified as to partial versus complete obstruction (principal); R10.11 Right upper quadrant pain
CPT/HCPCS: 36415; 80053; 83690; 87635; 93005; 96374; 99285; 74176; 81003; 81015; 84484; 85025; 87086; 93010; J2405

== ENCOUNTER → 2021-10-30 01:09 | Outpatient (CLI) | payer OTHER, SELFPAY ==
--- NOTE | 2021-10-30 | DI.CT_ITS ---
Exam(s) CT CHEST W EXAM: CT CHEST W CLINICAL HISTORY: LYMPHOMA C85.80. TECHNIQUE: Multi planar reconstructions were performed. CONTRAST MATERIAL: Omnipaque 350; 70 cc COMPARISON: CT CT CHEST/ABD/PEL W from 06/06/2021 FINDINGS: CHEST: LUNGS: Mild subpleural increased markings in the right upper lobe are unchanged. There are no new in filtrates nor pleural effusions. No new ominous pulmonary nodules. No new findings in the trachea a nd mainstem bronchi. MEDIASTINUM: There is no hilar nor mediastinal adenopathy. No axillary nor supraclavicular adenopathy . Visualized thyroid is diminutive. CARDIAC: Heart size is normal. There is no pericardial effusion.Thoracic aorta is atherosclerotic bu t not enlarged at the level of the ascending thoracic aorta. The descending thoracic aorta is athero sclerotic minimally prominent caliber. VISUALIZED UPPER ABDOMEN:There are no significant adrenal masses. Liver is again noted to have cirrh otic appearance. Mild splenomegaly. Exophytic splenule noted, unchanged. No ascites evident. OSSEOUS: No significant osseous lesions.. IMPRESSION: 1. No new pulmonary findings. No new nodules nor pleural effusions and no intrathoracic adenopathy 2. Atherosclerotic thoracic aorta but without prominent aneurysm. 3. Cirrhotic appearing liver. Mild splenomegaly. RADIATION DOSE DELIVERED: 578.87mGy.cm Total DLP DATA REPOSITORY: All CT scans at this facility are submitted to the National Radiology Data Registry (NRDR) Dose Index Registry (DIR) with the [employer] ([employer]). RADIATION OPTIMIZATION: All CT scans at this facility use at least one of these dose optimization te chniques: automated exposure control; mA and/or kV adjustment per patient size (includes targeted exa ms where dose is matched to clinical indication); or iterative reconstruction.
--- NOTE | 2021-10-30 | DI.CT_ITS ---
Exam(s) CT NECK W EXAM: CT NECK W CLINICAL HISTORY: LYMPHOMA C85.80, INCLUDE PAROTID GLANDS. TECHNIQUE: Imaging Protocol: Axial CT angiography was performed with multi-slice acquisition and mu lti-planar and/or 3D reconstructions. CONTRAST MATERIAL: Intravenous: Omnipaque 350 Contrast volume:structured data in ml COMPARISON: CT CT NECK WO from 06/06/2021 FINDINGS: Nasopharynx: Unremarkable Oropharynx: Unremarkable Hypopharynx: Unremarkable. Aryepiglottic folds unremarkable. Vocal cords and subglottic airway: Unremarkable. Thyroid gland: Not enlarged. No obvious significant nodules Salivary glands: Submandibular glands unremarkable Left parotid gland unremarkable. Asymmetry in the parotid glands again noted. The left parotid glan d again appears unremarkable. The right parotid gland again exhibits some increased density without a distinct mass and probably related to prior inflammatory process or radiation. No obstructing calc kisha evident. Lymph nodes: No lymphadenopathy evident in the neck. No adenopathy in the supraclavicular regions. Vascular: Atherosclerotic disease of both upper common carotid arteries, carotid bulbs and proximal i nternal carotid arteries, with approximately 80 percent stenosis at the origin of the right ICA and 9 0 percent stenosis at the origin of the left ICA. IMPRESSION: 1. Abnormal appearance of the right parotid gland is unchanged from the prior study of 06/06/2021, pr obably sequelae of inflammatory disease. No calculi evident. 2. No lymphadenopathy evident in the neck and supraclavicular regions. 3. Tight stenosis at the origin of both internal carotid arteries. RADIATION DOSE DELIVERED: 442.71mGy.cm Total DLP DATA REPOSITORY: All CT scans at this facility are submitted to the National Radiology Data Registry (NRDR) Dose Index Registry (DIR) with the [employer] ([employer]). RADIATION OPTIMIZATION: All CT scans at this facility use at least one of these dose optimization te chniques: automated exposure control; mA and/or kV adjustment per patient size (includes targeted exa ms where dose is matched to clinical indication); or iterative reconstruction.
[2021-10-30] MEDS: Omnipaque 350 MG/ML 100 ML BTL IJ (15:05)
[2021-10-30] MEDS: Normal Saline Flush 10 ML SYR IVP (15:06)
--- NOTE | 2021-10-30 18:33 | DI.VRAD_ITS ---
PROCEDURE INFORMATION: Exam: CT Neck With Contrast Exam date and time: 10/30/2021 3:14 PM Age: 76 years old Clinical indication: Dyspnea / difficulty breathing; Patient HX: Neck pain TECHNIQUE: Imaging protocol: Computed tomography images of the neck with contrast. Radiation optimization: All CT scans at this facility use at least one of these dose optimization techniques: automated exposure control; mA and/or kV adjustment per patient size (includes targeted exams where dose is matched to clinical indication); or iterative reconstruction. Contrast material: OMNI-PAQUE 350; Contrast volume: 45 ml; Contrast route: INTRAVENOUS (IV); COMPARISON: CT NECK WO 06/06/2021 1:15 PM FINDINGS: Nasopharynx: Unremarkable. Oropharynx: Unremarkable. No significant tonsillar enlargement. Hypopharynx: Unremarkable. Larynx: Unremarkable. Normal epiglottis. Retropharyngeal space: Unremarkable. Submandibular/Parotid glands: There is asymmetric increase in density involving the right parotid gland as compared with the left which could reflect an element of parotitis. Submandibular glands are unremarkable. Thyroid: Normal. No enlarged or calcified nodules. Lymph nodes: Unremarkable. No lymphadenopathy. Trachea: Visualized trachea is unremarkable. Lungs: Unremarkable as visualized. 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 Cervical spondylosis is evident with the most advanced facet arthropathy seen on the right side at C2-C3 and C5-C6 and on the left side at C3-C4 and C4-C5. No acute cervical fractures are detected. Vasculature: Atherosclerotic calcification and severe stenosis noted at the origin of the left internal carotid artery. Soft tissues: Unremarkable. No significant soft tissue swelling. IMPRESSION: 1. Asymmetric increase in density throughout the substance the right parotid gland as compared with the left could reflect an element of parotitis. No distal obstructing stone detected. Please correlate with clinical data. 2. No soft tissue masses or mucosal lesions are detected involving the aerodigestive tract. 3. Severe stenosis noted at the origin of the left internal carotid artery as above. Dictated and Authenticated by: Viet Cornejo MD. Ordering:CATALINA Weldon MD
== END ==
PROVIDERS: PCP Family Medicine; Visit Provider Internal Medicine Hematology & Oncology
DX: C85.80 Other specified types of non-Hodgkin lymphoma, unspecified site (principal); K11.8 Other diseases of salivary glands; I65.23 Occlusion and stenosis of bilateral carotid arteries; K74.69 Other cirrhosis of liver; R16.1 Splenomegaly, not elsewhere classified
CPT/HCPCS: 70491; 80053; 71260; 83615; 85025; J3490

== ENCOUNTER 2021-10-31 15:33 | Outpatient (REF) | payer OTHER, SELFPAY ==
[2021-10-31 15:01] LABS: Calculated LDL 140 mg/dL (<100); Cholesterol 200 mg/dL (<200); Ferritin 91 ng/mL (8-252); HDL Cholesterol 34 mg/dL (40-60); TSH (W/Ref FT4) 2.33 uIU/mL (0.36-3.74); Triglyceride 130 mg/dL (<150)
== END 2021-10-31 15:34 | disposition home or self-care (01) ==
LOC: NCHCN 15:33
PROVIDERS: PCP Family Medicine; Visit Provider Family Medicine
DX: E11.9 Type 2 diabetes mellitus without complications (principal); I10 Essential (primary) hypertension; E03.9 Hypothyroidism, unspecified; E78.5 Hyperlipidemia, unspecified; R60.0 Localized edema
CPT/HCPCS: 80061; 82728; 84443

== ENCOUNTER → 2021-12-18 10:14 | Outpatient (BNVA) | payer OTHER, SELFPAY | PROVIDERS: PCP Family Medicine; Visit Provider Internal Medicine Cardiovascular Disease | DX: I48.91 Unspecified atrial fibrillation (principal); I10 Essential (primary) hypertension; I35.0 Nonrheumatic aortic (valve) stenosis | CPT/HCPCS: 99214; 99213 ==

== ENCOUNTER → 2022-01-03 00:17 | Outpatient (CLI) | payer OTHER, SELFPAY ==
--- NOTE | 2022-01-03 13:30 | DI.DEXA_ITS ---
Exam(s) XR DEXA BONE DENSITY W/WO EL EXAM: XR DEXA BONE DENSITY W/WO EL CLINICAL HISTORY: OSTEOPENIA, OTHER SPECIFIED DISORDERS OF BONE DENSITY, M85.88 TECHNIQUE: COMPARISON: CR LEFT HIP COMPLETE from 02/07/2012 FINDINGS: DEXA scan was performed according to the usual protocol. Please see the accompanying data sheets. F indings for right hip scanning are T-score -0.2 with right femoral neck T-score -1.7. Findings for lumbar spine scanning are T-score 2.1. Prior examination of 2014 showed lumbar T-score 1.5. Left forearm scanning shows T-score 0.1. Prior examination of 2014 showed left forearm T-score -0.1. IMPRESSION: The measurements are consistent with osteopenia according to the WHO criteria. The lateral vertebral scanogram shows no evidence of a vertebral compression fracture. RADIATION DOSE DELIVERED: Total DLP
--- NOTE | 2022-01-03 14:00 | DI.MAMMO_ITS ---
Exam(s) MG MAMMO SCREENING 60 MIN DUR EXAM: MG MAMMO SCREENING 60 MIN DUR CLINICAL HISTORY: H/O BREAST CA, RIGHT SIDE, Z85.3; SCREENING TECHNIQUE: Mammograms were interpreted according to the usual protocol including computer analysis w [employer] CAD system, tomosynthesis and C-view imaging. COMPARISON: FINDINGS: The breasts are heterogeneously dense. Prior right lumpectomy noted, coarse calcifications are noted associated with the lumpectomy site consistent with dystrophic calcifications. No dominant mass pam ntified. No clumped microcalcification seen. Current examination is compared with previous examinations including September 2020 and there has been no gross interval change appearance comparison with previous studies. IMPRESSION: No specific evidence of malignancy at this time. Routine screening examinations are suggested at yea rly intervals due to the history of breast carcinoma. BI-RADS Category 1 - Negative Breast Density - Category B - Scattered areas of fibroglandular density
== END ==
PROVIDERS: PCP Family Medicine; Visit Provider Family Medicine
DX: Z12.31 Encounter for screening mammogram for malignant neoplasm of breast (principal); Z85.3 Personal history of malignant neoplasm of breast; Z98.890 Other specified postprocedural states; M85.88 Other specified disorders of bone density and structure, other site
CPT/HCPCS: 77063; 77067; 77080

== ENCOUNTER 2022-01-24 11:44 | Outpatient (CLI) | payer OTHER, SELFPAY ==
--- NOTE | 2022-01-24 11:30 | DI.RAD_ITS ---
Exam(s) XR HIP RT COMPLETE AP PELVIS EXAM: XR HIP RT COMPLETE AP PELVIS CLINICAL HISTORY: RIGHT HIP PAIN. TECHNIQUE: 2D digital imaging was performed. COMPARISON: CT CT ABDOMEN PELVIS WO from 10/25/2021 CR XR DEXA BONE DENSITY W/WO EL from 01/03/2022 FINDINGS: Two views Left hip prosthesis again noted. Components appear to be in satisfactory. Degenerative changes in right hip are noted moderate joint space narrowing superiorly and degenerativ e subarticular cysts. No ominous osseous lesions. IMPRESSION: Significant degenerative changes in the right hip. Stable left hip prosthesis DATA REPOSITORY: RADIATION DOSE DELIVERED:
== END 2022-01-24 11:45 | disposition home or self-care (01) ==
LOC: DIORS 11:45
PROVIDERS: PCP Family Medicine; Referring Provider Family Medicine; Visit Provider Student in an Organized Health Care Education/Training Program
DX: M16.11 Unilateral primary osteoarthritis, right hip (principal)
CPT/HCPCS: 99214; 73502

== ENCOUNTER → 2022-02-14 12:51 | Outpatient (BNVA) | payer OTHER, SELFPAY | PROVIDERS: PCP Family Medicine; Referring Provider Family Medicine; Visit Provider Physician Assistant Surgical | DX: Z01.818 Encounter for other preprocedural examination (principal); I10 Essential (primary) hypertension; E11.9 Type 2 diabetes mellitus without complications; I48.91 Unspecified atrial fibrillation; I35.0 Nonrheumatic aortic (valve) stenosis; K74.60 Unspecified cirrhosis of liver; M16.11 Unilateral primary osteoarthritis, right hip ==

== ENCOUNTER 2022-02-22 02:23 | Outpatient (CLI) | payer OTHER, SELFPAY ==
[2022-02-22 10:23] LABS: HCT 39.4 % (36.0-46.0); HGB 12.9 g/dL (11.2-15.7); MCH 30.3 pg (27.0-33.0); MCHC 32.7 % (32.0-36.0); MCV 93 fL (80-95); MPV 10.1 fL (8.0-11.0); Platelet Count 131 10^3/uL (130-400); RBC 4.26 10^6/uL (3.93-5.22); RDW 13.2 % (11.7-14.6); RDW-SD 45.2 fL; WBC 5.21 10^3/uL (4.4-10.8)
[2022-02-22 11:04] LABS: Hemoglobin A1C 6.3 % (<5.7)
[2022-02-22 11:05] LABS: Anion Gap 7.6 mmol/L (3-11); BUN 30 mg/dL (7-18); CO2 26.4 mmol/L (21.0-32.0); CREATININE 1.5 mg/dL (0.55-1.02); Calcium 9.5 mg/dL (8.5-10.1); Chloride 103 mmol/L (98-107); Estimated GFR 33.58 (mL/min/1.73m2); Glucose 141 mg/dL (74-106); Potassium 4.9 mmol/L (3.5-5.1); Sodium 137 mmol/L (136-145)
[2022-02-22 11:57] LABS: Source Nasal/Nares
[2022-02-22 14:51] LABS: COVID-19 PCR Negative (Negative)
== END 2022-02-22 02:24 | disposition home or self-care (01) ==
LOC: LBO 02:24
PROVIDERS: PCP Family Medicine; Visit Provider Student in an Organized Health Care Education/Training Program
DX: M25.551 Pain in right hip (principal); M16.11 Unilateral primary osteoarthritis, right hip; E11.9 Type 2 diabetes mellitus without complications; I10 Essential (primary) hypertension; E03.9 Hypothyroidism, unspecified; Z20.822 Contact with and (suspected) exposure to COVID-19; Z01.818 Encounter for other preprocedural examination; Z01.812 Encounter for preprocedural laboratory examination
CPT/HCPCS: 36415; 80048; 85027; 87635; U0005; 83036

== ENCOUNTER 2022-02-22 02:45 | Outpatient (CLI) | payer OTHER, SELFPAY | END 2022-02-22 02:46 | disposition home or self-care (01) | LOC: LBO 02:45 | PROVIDERS: PCP Family Medicine; Visit Provider Student in an Organized Health Care Education/Training Program ==

== ENCOUNTER 2022-02-26 08:28 | Day surgery (SDC) | payer OTHER, SELFPAY ==
--- NOTE | 2022-02-26 09:35 | NUR.NOTE ---
0850: Tommie Vizcaino CRNA in to speak to pt. regarding imaging in October. [employer]LECT[employer] ENGINE[employer] recommended pt. have follow up regarding the imaging before having hip replaced. Pt. in agreement. 0910: in to see pt. similiar discussion had. Pt. canceled today per providers. Nursing Note:
--- NOTE | 2022-02-26 09:46 | PDOC.ANES ---
Date of service: 02/26/22 Time of Service: 08:35 Anesthesia Note Report Anesthesia Note: Silvia is an extremely pleasant individual who was scheduled for a EVAN today but was unfortunately canceled. She has a history of PVD (SFA and renal artery stents, left vertebral artery occlusion), TERRY/CPAP, CKDIII, STEVENS/cirrhosis, parotid CA with radiation and chemo, aortic stenosis, afib (hx). She is listed as a difficult airway, but has been intubated via VL without difficulty on multiple occasions. On chart review for her procedure today it was noted that she had a neck CT on 10/30/21 which showed severe ICA stenosis (80% and 90%). There are no notes addressing this stenosis and it management within the [facility] or [facility] system. She was attempted to be reached prior to her arrival here, but I was unsuccessful. On her arrival she seems unaware that she has any stenosis in her carotids. We discussed that she should follow up with her PCP or vascular in regards to this. We discussed that given her stenosis she likely should not undergo an elective hip replacement until that has been further evaluated. It is unclear how asymptomatic she is from this, as she does endorse dizziness, but unclear if any lateraled symptoms, but has not had a stroke or TIA. She understands why she is being canceled (risk of severe neurologic complications up to and including ). We did discuss if he following up on this leads to her being medically managed that she may be a candidate here for surgery, but that it would warrant a bigger discussion of her risk, and that she may be better suited at a larger center.
== END 2022-02-26 08:29 | disposition home or self-care (01) ==
LOC: SUR 08:29
PROVIDERS: PCP Family Medicine; Visit Provider Student in an Organized Health Care Education/Training Program
DX: M16.11 Unilateral primary osteoarthritis, right hip (principal); Z53.09 Procedure and treatment not carried out because of other contraindication; I65.29 Occlusion and stenosis of unspecified carotid artery

== ENCOUNTER 2022-03-25 02:30 | Outpatient (CLI) | payer OTHER, SELFPAY ==
[2022-03-25 14:34] LABS: Source Nasal/Nares
[2022-03-25 16:43] LABS: COVID-19 PCR Negative (Negative)
== END 2022-03-25 02:31 | disposition home or self-care (01) ==
PROVIDERS: PCP Family Medicine; Visit Provider Student in an Organized Health Care Education/Training Program
DX: Z20.822 Contact with and (suspected) exposure to COVID-19 (principal); Z01.818 Encounter for other preprocedural examination
CPT/HCPCS: 87635

== ENCOUNTER 2022-03-26 05:43 | Day surgery (SDC) | payer OTHER, SELFPAY ==
[2022-03-26] VITALS (7 sets, daily range): BP systolic 109–129; BP diastolic 33–56; PULSE 54–64; RESP 15–17; TEMP 36.2–36.5; O2SAT 93–98; BMI 41.1
[2022-03-26] MEDS: Acetaminophen 500 MG TAB 1000 MG PO (06:50)
[2022-03-26] MEDS: Lactated Ringers 1,000 ML 80 ML IV (06:51)
[2022-03-26] MEDS: Celecoxib 200 MG CAP 400 MG PO (06:51)
--- NOTE | 2022-03-26 07:14 | DSE_ITS ---
Date of service: 03/26/22 Time of Service: 11:34 DS: Diagnosis Discharge Diagnosis (1) Primary osteoarthritis of right hip: Status: Acute Discharge Plan Disposition Patient Disposition: HOME Condition: Good Discharge Details Reason For Visit: Right hip DJD Attending Provider: Jose Alberto Galindo Primary Care Provider: Jena Mitchell Home Meds and New Rx's Prescriptions: New celecoxib [Celebrex] 200 mg capsule 200 mg PO BID Qty: 30 0RF aspirin 81 mg tablet,delayed release (DR/EC) 81 mg PO BID 30 Days Qty: 60 0RF acetaminophen 500 mg tablet 500 mg PO Q6H PRN (Reason: pain) Qty: 60 2RF docusate sodium [Colace] 100 mg capsule 100 mg PO BID Qty: 30 0RF oxycodone 5 mg tablet 5 mg PO Q6H PRN (Reason: severe post-operative pain) Qty: 12 0RF Rx Instructions: Take one tablet up to every 6 hours as needed for severe pain Continued furosemide [Lasix] 20 mg tablet 20 mg PO DAILY irbesartan 300 mg tablet 300 mg PO DAILY gabapentin 100 mg capsule 100 mg PO QHS ferrous sulfate [Feosol] 325 mg (65 mg iron) tablet 650 mg PO DAILY diltiazem HCl [Cartia XT] 300 MG capsule,extended release 24hr 300 mg PO DAILY escitalopram oxalate 20 MG tablet 20 mg PO DAILY Victoza 2-Tray 0.6 mg/0.1 mL (18 mg/3 mL) pen injector 0.6 mg subcut HS fluticasone propionate [Allergy Relief (fluticasone)] 50 mcg/actuation spray,suspension 2 spray intranasal DAILY PRN Rx Instructions: administer into each nostril levothyroxine 125 mcg Tablet 125 mcg PO DAILY sucralfate 1 gram Tablet 1 g PO QACHS Qty: 120 0RF meclizine 12.5 mg tablet See Rx Instructions PO DAILY PRN Rx Instructions: take 1-2 tablets every 8 hours as needed for nausea. pantoprazole 40 mg tablet,delayed release (DR/EC) 40 mg PO BID Discontinued diphenhydramine-acetaminophen [Acetaminophen PM] 25-500 mg Tablet 1 tab PO HS PRN aspirin 81 mg Capsule,Delayed Release(Dr/Ec) 81 mg PO DAILY Discharge Instructions Additional Instructions: Total Hip Discharge Instructions Activity: The most important activity is to walk. You should try to take short walks a few times a day. You have no restrictions on movement or positioning, but do not try to force what you do. You will find some stiffness and weakness with hip flexion (lifting your knee). Do not try to strengthen this too early, continue to practice walking and stairs and this will come. - Outpatient physical therapy can be helpful to help return you to a normal gait and improve your flexibility and strength. This can start around 2 weeks. For some patients, it?s not necessary. Usually this is determined at the time of discharge or at the first post-operative visit. - You should wear the MICHAEL hose on both legs for 2 weeks. Dressing: Keep the surgical dressing in place for at least one week. After the first week it may be removed and replace with light gauze and tape or nothing. It may get wet after 3 days but avoid soaking the dressing. If it gets wet, just lightly pat dry. It is important to always keep some gauze between skin folds, especially when you are sitting. Spend some time with the wound exposed when you are lying flat as the incision does wrinkle onto itself. Medications: - You should take Tylenol and an anti-inflammatory Celebrex as your primary pain control medications. If the Celebrex is too expensive or not covered, please call the office for another alternative (Advil/Ibuprofen or Naproxen/Aleve). - You have been prescribed a stronger pain medication Oxycodone for breakthrough pain, take as needed as prescribed. - You take a stomach acid reduction agent Pantoprozole at baseline - we will continue with this medication to help reduce stomach acid and reflux. - You will be taking Aspirin 81mg twice a day for DVT prevention unless instructed otherwise. - If you have constipation you should take Colace (which has been prescribed) or Miralax (which is available [id number]). It takes most people 3-4 days to have a bowel movement. Follow-up: 2 weeks If you have any acute concerns or questions, please do not hesitate to contact the office at [phone]. You may contact Dr. Galindo with any questions after hours through the hospital at [phone] or on his cell phone at [phone]. Referrals: Jose Alberto Galindo MD [ [facility] STAFF PHYSICIAN] - Equipment/Supplies: Walker Activity:: Activity as Tolerated Remove Dressings/Wound Care:: Do Not Remove Shower/Bathe:: Cover Diet:: As Tolerated Discharge Orders Discharge Orders: Discharge Order (Routine); Ordered 03/26/22 Ordered By: Jose Alberto Galindo DS: Summary Time Spent with Patient providing and/or coordinating discharge services: Less than 30 minutes Status at Discharge Functional status at discharge: uses cane/walker Overall status at discharge: patient is progressing back to baseline Mental Status: mental status grossly normal Speech and Movement: speech and movement normal Mood: congruent mood Affect: normal affect Exam Psych Mental Status: mental status grossly normal Speech and Movement: speech and movement normal Mood: congruent mood Affect: normal affect DS: Data Vitals/I&O Vitals and I&O: Vital Signs Temperature 97.7 F 03/26/22 06:16 Pulse 64 03/26/22 06:16 Respiratory Rate 16 03/26/22 06:16 Blood Pressure 127/56 L 03/26/22 06:16 Pulse Oximetry 96 03/26/22 06:16 Oxygen Delivery Method Room Air 03/26/22 06:16 Oxygen Flow Rate 0 03/26/22 06:16 Pain Level 0 03/26/22 06:16 Intake & Output 03/25/22 03/25/22 03/26/22 11:59 23:59 11:59 Weight 227 lb 15.998 oz 232 lb 2.348 oz PFSH All Active Problems Diabetes mellitus (Chronic) SVT (supraventricular tachycardia) (Chronic) History of syncope (Chronic) Renal artery stenosis (Chronic) GERD (gastroesophageal reflux disease) (Chronic) 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 coli UTI (Acute) Peripheral vascular angioplasty status with implants and grafts (Acute) Nasal obstruction (Chronic) Hypertrophy of inferior nasal turbinate (Chronic) Tendinitis of long head of biceps brachii of left shoulder (Acute) Left rotator cuff tear (Acute) Aortic stenosis (Chronic) Dyspnea on exertion (Acute) A-fib (Chronic) Acute UTI (Acute) Acute anemia (Acute) Lower GI bleed (Acute) Melena (Acute) Urinary tract infection (Acute) Anemia (Chronic) Hematochezia (Acute) Tubular adenoma of colon (Acute) Hyperplastic colon polyp (Acute) Primary osteoarthritis of right hip (Acute) Medical History Breast Cancer Diabetes mellitus Difficult airway Per [facility] anesthesia notes she is a difficult airway. She has had previous intubations with VL grade 1 view. Also easy mask with 90 mm OPA, and successful LMA placement in the past. Dizziness Dyslipidemia Gastro-esophageal reflux disease without esophagitis Hyperlipidemia Hypertension Hypothyroidism Lymphoma Nasal septal deviation STEVENS (nonalcoholic steatohepatitis) TERRY (obstructive sleep apnea) PVD (peripheral vascular disease) Recurrent UTI (03/15/16) Sensorineural hearing loss of both ears Shortness of breath SVT (supraventricular tachycardia) F/U with Dr. Sweet Syncope Type 2 diabetes mellitus with diabetic peripheral angiopathy without gangrene Surgical History Excision of neck mass History of colonoscopy (~07/2021) History of esophagogastroduodenoscopy (EGD) (~07/2021) History of total left hip replacement Hx of tonsillectomy Nail removal (toe) Partial mastectomy with sentinal node Pt. states this is incorrect, she had a lumpectomy Rotator Cuff Repair Social History Smoking/Tobacco Use Status: Never Smoking risk assessment performed?: Yes Alcohol Intake: never Drug use: Never Substance use type: does not use Do you feel safe at home: Yes Do you feel safe in your relationship?: Yes Female Reproductive History Menstrual Menopause type: natural
--- NOTE | 2022-03-26 07:22 | HPE_ITS ---
Assessment and Plan Assessment and plan (1) Primary osteoarthritis of right hip: Status: Acute Assessment and plan: Silvia is a 77-year-old who has known arthritis about the right hip. She has a complex history with renal artery stenosis, femoral artery stenosis, and carotid stenosis. She has had stenting of the more occluded vessels and more recent evaluation of her carotids shows no need for intervention. She is medically stable although complex. She continues have right hip pain with severe arthritis seen on x-ray. She had a successful left hip replacement and is looking forward to proceeding with right hip replacement today. Once again, I went over in detail the possible complications of hip replacement. These include but are not limited to bleeding, infection, pain, stiffness, weakness, damage to nerves (especially the lateral femoral cutaneous nerve), damage to vessels, damage to muscle and tendon, fracture, leg length inequality, wound healing complications, instability, dislocation, and blood clot. Questions were answered. I again expressed that this is a surgery to improve functional quality of life. After a review of the presented information and risks, Silvia desired to proceed. History of Present Illness History of Present Illness Chief Complaint: Right Hip Pain Narrative: Pau is a 77-year-old who has known right hip arthritis. Please see the previous office note for complete detailed history including history and physical. She is had no significant changes in her medical history. She has seen vascular surgery at [facility] for evaluation of her carotid stenosis. She has been cleared for surgery without any indication for surgical intervention for her carotid stenosis with the only recommendation to continue her aspirin. She continues have pain about the right hip. She had a successful left hip replacement. She is COVID-19 negative. She denies any chest pain or shortness of breath. She denies any claudication symptoms. She denies any headache or vision changes. 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 coli UTI (Acute) Peripheral vascular angioplasty status with implants and grafts (Acute) Nasal obstruction (Chronic) Hypertrophy of inferior nasal turbinate (Chronic) Tendinitis of long head of biceps brachii of left shoulder (Acute) Left rotator cuff tear (Acute) Aortic stenosis (Chronic) Dyspnea on exertion (Acute) A-fib (Chronic) Acute UTI (Acute) Acute anemia (Acute) Lower GI bleed (Acute) Melena (Acute) Urinary tract infection (Acute) Anemia (Chronic) Hematochezia (Acute) Tubular adenoma of colon (Acute) Hyperplastic colon polyp (Acute) Primary osteoarthritis of right hip (Acute) Medical History Breast Cancer Diabetes mellitus Difficult airway Per [facility] anesthesia notes she is a difficult airway. She has had previous intubations with VL grade 1 view. Also easy mask with 90 mm OPA, and successful LMA placement in the past. Dizziness Dyslipidemia Gastro-esophageal reflux disease without esophagitis Hyperlipidemia Hypertension Hypothyroidism Lymphoma Nasal septal deviation STEVENS (nonalcoholic steatohepatitis) TERRY (obstructive sleep apnea) PVD (peripheral vascular disease) Recurrent UTI (03/15/16) Sensorineural hearing loss of both ears Shortness of breath SVT (supraventricular tachycardia) F/U with Dr. Sweet Syncope Type 2 diabetes mellitus with diabetic peripheral angiopathy without gangrene Surgical History Excision of neck mass History of colonoscopy (~07/2021) History of esophagogastroduodenoscopy (EGD) (~07/2021) History of total left hip replacement Hx of tonsillectomy Nail removal (toe) Partial mastectomy with sentinal node Pt. states this is incorrect, she had a lumpectomy Rotator Cuff Repair Social History Smoking/Tobacco Use Status: Never Smoking risk assessment performed?: Yes Alcohol Intake: never Drug use: Never Substance use type: does not use Do you feel safe at home: Yes Do you feel safe in your relationship?: Yes Female Reproductive History Menstrual Menopause type: natural Meds Allergies and Home Medications Allergies Allergy/AdvReac Type Severity Reaction Status Date / Time tamoxifen Allergy Intermediate liver Verified 03/26/22 06:09 complications amlodipine AdvReac Intermediate leg pain Verified 03/26/22 06:09 atenolol AdvReac Intermediate leg pain Verified 03/26/22 06:09 doxazosin AdvReac Intermediate leg pain Verified 03/26/22 06:09 enalapril AdvReac Intermediate leg pain Verified 03/26/22 06:09 glipizide AdvReac Intermediate body aches Verified 03/26/22 06:09 lisinopril AdvReac Intermediate leg pain Verified 03/26/22 06:09 sertraline AdvReac Intermediate leg pain Verified 03/26/22 06:09 simvastatin [From Zocor] AdvReac Intermediate leg pain Verified 03/26/22 06:09 Vpanlyp-EOM-DkT Reductase AdvReac Intermediate leg pains Verified 03/26/22 06:09 Inhibitor [Qgrddjg-Avc-Lvs Reductase Inhibitor] ticlopidine AdvReac Intermediate leg pain Verified 03/26/22 06:09 valsartan AdvReac Intermediate leg pain Verified 03/26/22 06:09 Home Medications Medication Instructions Recorded Confirmed Type diltiazem HCl 300 mg 300 mg PO DAILY 02/29/16 03/26/22 History capsule,extended release 24 hr (Cartia XT) escitalopram oxalate 20 mg tablet 20 mg PO DAILY 02/29/16 03/26/22 History gabapentin 100 mg capsule 100 mg PO QHS 12/11/20 03/26/22 History fluticasone propionate 50 2 spray intranasal DAILY PRN 04/25/21 03/25/22 History mcg/actuation nasal spray,suspension (Allergy Relief (fluticasone)) liraglutide 0.6 mg/0.1 mL (18 mg/3 0.6 mg subcut HS 04/25/21 03/26/22 History mL) subcutaneous pen injector (Victoza 2-Tray) levothyroxine 125 mcg tablet 125 mcg PO DAILY 06/06/21 03/26/22 History sucralfate 1 gram tablet 1 g PO QACHS #120 tabs 06/08/21 03/26/22 Rx ferrous sulfate 325 mg (65 mg 650 mg PO DAILY 06/22/21 03/25/22 History iron) tablet (Feosol) meclizine 12.5 mg tablet See Rx Instructions PO DAILY PRN 10/25/21 03/26/22 History pantoprazole 40 mg tablet,delayed 40 mg PO BID 10/25/21 03/26/22 History release furosemide 20 mg tablet (Lasix) 20 mg PO DAILY 02/14/22 03/26/22 History irbesartan 300 mg tablet 300 mg PO DAILY 02/14/22 03/26/22 History acetaminophen 500 mg tablet 500 mg PO Q6H PRN pain #60 tabs 03/26/22 Rx aspirin 81 mg tablet,delayed 81 mg PO BID 30 days #60 tabs 03/26/22 Rx release celecoxib 200 mg capsule (Celebrex) 200 mg PO BID #30 caps 03/26/22 Rx docusate sodium 100 mg capsule 100 mg PO BID #30 caps 03/26/22 Rx (Colace) oxycodone 5 mg tablet 5 mg PO Q6H PRN severe 03/26/22 Rx post-operative pain #12 tabs Exam Resp Effort & Inspection: normal respiratory effort Auscultation: clear to auscultation bilaterally Cardio Rate: regular rate Rhythm: regular rhythm Extrem Other: Right hip is evaluated without any signs of skin defect or infection. Right leg does appear to be shorter than the left side by about 5 to 6 mm. Results Last Vital Signs Temp 36.5 C 03/26/22 06:16 Pulse 64 03/26/22 06:16 Resp 16 03/26/22 06:16 BP 127/56 L 03/26/22 06:16 Pulse Ox 96 03/26/22 06:16
[2022-03-26] MEDS: ceFAZolin 2 GM/50 ML BAG IVPB (07:51)
--- NOTE | 2022-03-26 08:04 | W.ANESPRE ---
General Info Date of Service Date Performed: 03/26/22 Height: 5 ft 3 in Weight: 105.3 kg Body Mass Index (BMI): 41.1 Surgical Procedure: Operation Date: 03/26/22 07:50 Proposed Procedure Side Surgeon p Hip Total Hip Anterior Right Jose Alberto Galindo MD Actual Procedure Side Surgeon p Hip Total Hip Anterior Right Jose Alberto Galindo MD Pre-Op Diagnosis Post-Op Diagnosis OSTEOARTHRITIS RIGHT HIP Meds Allergies and Home Medications Allergies Allergy/AdvReac Type Severity Reaction Status Date / Time tamoxifen Allergy Intermediate liver Verified 03/26/22 06:09 complications amlodipine AdvReac Intermediate leg pain Verified 03/26/22 06:09 atenolol AdvReac Intermediate leg pain Verified 03/26/22 06:09 doxazosin AdvReac Intermediate leg pain Verified 03/26/22 06:09 enalapril AdvReac Intermediate leg pain Verified 03/26/22 06:09 glipizide AdvReac Intermediate body aches Verified 03/26/22 06:09 lisinopril AdvReac Intermediate leg pain Verified 03/26/22 06:09 sertraline AdvReac Intermediate leg pain Verified 03/26/22 06:09 simvastatin [From Zocor] AdvReac Intermediate leg pain Verified 03/26/22 06:09 Zougghl-ARF-NpI Reductase AdvReac Intermediate leg pains Verified 03/26/22 06:09 Inhibitor [Uojsipj-Owt-Rpm Reductase Inhibitor] ticlopidine AdvReac Intermediate leg pain Verified 03/26/22 06:09 valsartan AdvReac Intermediate leg pain Verified 03/26/22 06:09 Home Medication Medication Instructions Recorded diltiazem HCl 300 mg 300 mg PO DAILY 02/29/16 capsule,extended release 24 hr (Cartia XT) escitalopram oxalate 20 mg tablet 20 mg PO DAILY 02/29/16 gabapentin 100 mg capsule 100 mg PO QHS 12/11/20 fluticasone propionate 50 2 spray intranasal DAILY PRN 04/25/21 mcg/actuation nasal spray,suspension (Allergy Relief (fluticasone)) liraglutide 0.6 mg/0.1 mL (18 mg/3 0.6 mg subcut HS 04/25/21 mL) subcutaneous pen injector (Solar Junctiontoza 2-Tray) levothyroxine 125 mcg tablet 125 mcg PO DAILY 06/06/21 sucralfate 1 gram tablet 1 g PO QACHS #120 tabs 06/08/21 ferrous sulfate 325 mg (65 mg 650 mg PO DAILY 06/22/21 iron) tablet (Feosol) meclizine 12.5 mg tablet See Rx Instructions PO DAILY PRN 10/25/21 pantoprazole 40 mg tablet,delayed 40 mg PO BID 10/25/21 release furosemide 20 mg tablet (Lasix) 20 mg PO DAILY 02/14/22 irbesartan 300 mg tablet 300 mg PO DAILY 02/14/22 acetaminophen 500 mg tablet 500 mg PO Q6H PRN pain #60 tabs 03/26/22 aspirin 81 mg tablet,delayed 81 mg PO BID 30 days #60 tabs 03/26/22 release celecoxib 200 mg capsule (Celebrex) 200 mg PO BID #30 caps 03/26/22 docusate sodium 100 mg capsule 100 mg PO BID #30 caps 03/26/22 (Colace) oxycodone 5 mg tablet 5 mg PO Q6H PRN severe 03/26/22 post-operative pain #12 tabs Current Visit Medications: Current Medications Generic Name Dose Route Start Last Admin Trade Name Freq PRN Reason Stop Dose Admin Acetaminophen 1,000 mg 03/26/22 06:00 03/26/22 06:50 Acetaminophen 500 Mg Tab PO 03/26/22 16:00 1,000 mg PREOP PAVITHRA Administration Acetaminophen 1,000 mg 03/26/22 14:00 Acetaminophen 500 Mg Tab PO TID PAVITHRA Aspirin 81 mg 03/26/22 20:00 Aspirin E.C. 81 Mg Tabec PO BID PAVITHRA Celecoxib 400 mg 03/26/22 06:00 03/26/22 06:51 Celecoxib 200 Mg Cap PO 03/26/22 16:00 400 mg PREOP PAVITHRA Administration Celecoxib 200 mg 03/26/22 20:00 Celecoxib 200 Mg Cap PO BID PAVITHRA Docusate Sodium 100 mg 03/26/22 07:09 Docusate Sodium 100 Mg Cap PO BID PRN PRN Constipation Hydromorphone HCl 0.5 mg 03/26/22 07:09 Hydromorphone 2 Mg/Ml Vial IVP Q2H PRN PRN Tranexamic Acid 1,000 mg/ 60 mls @ 360 mls/hr 03/26/22 06:00 Sodium Chloride IV 03/26/22 16:00 PREOP PAVITHRA Ringer's Solution 1,000 mls @ 80 mls/hr 03/26/22 06:00 03/26/22 06:51 IV 04/24/22 23:59 80 mls/hr INFUSION PAVITHRA Administration Cefazolin Sodium/Dextrose 2 gm in 50 mls @ 100 mls/hr 03/26/22 06:00 Ancef Duplex IVPB 03/26/22 16:00 PREOP PAVITHRA Cefazolin Sodium/Dextrose 1 gm in 50 mls @ 100 mls/hr 03/26/22 08:00 Ancef Duplex IVPB 03/27/22 00:29 Q8H PAVITHRA IV Miscellaneous Supplies 1 each 03/26/22 06:00 Iv Access IV 04/24/22 23:59 DIRECTED PAVITHRA Oxycodone HCl 0 mg 03/26/22 07:09 Oxycodone 5 Mg Tab PO Q3H PRN PRN Pain Pantoprazole Sodium 40 mg 03/27/22 07:30 Pantoprazole 40 Mg Tabcr PO DAILY@0730 PAVITHRA Polyethylene Glycol 17 gm 03/26/22 07:09 Polyethylene Glycol 3350 17 Gm Packet PO BID PRN PRN Constipation Sodium Chloride 0 ml 03/26/22 06:00 Normal Saline Flush 10 Ml Syr IV 04/24/22 23:59 PRN PRN Sodium Chloride 0 ml 03/26/22 06:00 Normal Saline 10 Ml Vial IJ 04/24/22 23:59 DIRECTED PRN Sterile Water 0 ml 03/26/22 06:00 Water,Injection,Sterile 10 Ml Vial IJ 04/24/22 23:59 DIRECTED PRN PFSH Active Problems Active Problems: Problem Status Onset Code Abdominal pain 09/23/13 R10.9 Diarrhea 09/23/13 R19.7 RUQ abdominal pain R10.11 Right flank pain R10.9 Diabetes mellitus E11.9 SVT (supraventricular tachycardia) I47.1 History of syncope Z87.898 Renal artery stenosis I70.1 GERD (gastroesophageal reflux disease) K21.9 Cirrhosis of liver not due to alcohol Sepsis A41.9 DVT prophylaxis CICI (acute kidney injury) N17.9 E coli bacteremia R78.81 E. coli UTI N39.0, B96.20 Peripheral vascular angioplasty status with implants and grafts Z95.820 Nasal obstruction J34.89 Hypertrophy of inferior nasal turbinate J34.3 Tendinitis of long head of biceps brachii of left shoulder M75.22 Left rotator cuff tear M75.102 Aortic stenosis I35.0 Dyspnea on exertion R06.00 A-fib I48.91 Acute UTI N39.0 Acute anemia D64.9 Lower GI bleed K92.2 Melena K92.1 Urinary tract infection N39.0 Anemia D64.9 Hematochezia K92.1 Tubular adenoma of colon D12.6 Hyperplastic colon polyp K63.5 Primary osteoarthritis of right hip M16.11 Medical History Medical History Breast Cancer Diabetes mellitus Difficult airway Per [facility] [place] notes she is a difficult airway. She has had previous intubations with VL grade 1 view. Also easy mask with 90 mm OPA, and successful LMA placement in the past. Dizziness Dyslipidemia Gastro-esophageal reflux disease without esophagitis Hyperlipidemia Hypertension Hypothyroidism Lymphoma Nasal septal deviation STEVENS (nonalcoholic steatohepatitis) TERRY (obstructive sleep apnea) PVD (peripheral vascular disease) Recurrent UTI (03/15/16) Sensorineural hearing loss of both ears Shortness of breath SVT (supraventricular tachycardia) F/U with Dr. Sweet Syncope Type 2 diabetes mellitus with diabetic peripheral angiopathy without gangrene Medical History Comments:: Per [facility] [place] notes she is a difficult airway. She has had previous intubations with VL grade 1 view. Also easy mask with 90 mm OPA, and successful LMA placement in the past. Surgical History Surgical History Excision of neck mass History of colonoscopy (~07/2021) History of esophagogastroduodenoscopy (EGD) (~07/2021) History of total left hip replacement Hx of tonsillectomy Nail removal (toe) Partial mastectomy with sentinal node Pt. states this is incorrect, she had a lumpectomy Rotator Cuff Repair Tobacco Smoking/Tobacco Use Status: Never Alcohol Alcohol Intake: never Substance Use Substance use: Never Substance use type: does not use Vital Signs and Lab Results Vital Signs Most Recent Vital Signs in EMR: Most Recent Vital Signs Temp Pulse Resp BP Pulse Ox 36.5 C 64 16 127/56 L 96 03/26/22 06:16 03/26/22 06:16 03/26/22 06:16 03/26/22 06:16 03/26/22 06:16 Point of Care Results Point of Care Results: Finger Stick Blood Glucose 145 03/26/22 06:15 Lab Results Blood Type / Crossmatch: No Data to Display Complete Blood Count: No Data to Display Complete Metabolic Panel: No Data to Display Liver Function Panel: No Data to Display Coagulation Panel: No Data to Display Cardiac Panel: No Data to Display Arterial Blood Gas: No Data to Display Venous Blood Gas: No Data to Display Pancreas Panel: No Data to Display Thyroid Panel: No Data to Display Infectious Disease: Coronavirus (COVID-19)(PCR) Negative (Negative) 03/25/22 10:04 Coronavirus 2019 Source Nasal/Nares 03/25/22 10:04 Blood Cultures: No Data to Display Toxicology Panel: No Data to Display Imaging and Studies Imaging and Studies Study information below may be from another EMR and interpreted by another provider. Please see original notes in EMR for more complete details. EKG Summary: 05/2012: sinus rhythm. Stress Test Summary: 01/12: 6 mets, exercise was stopped due to fatigue, no symptoms of ischemia, LVEF 63%, no WMA. Echocardiogram Summary: 06/14: LVEF 60-65%, mild MR. mild , trace AR. Carotid Artery Summary:: 2019: Right <50%stenosis, Left <50% stenosis. left vertebral artery occlusion. 2021: Right 50%-79% stenosis, Left <50% stenosis. Left vertebral artery occlusion Pulmonary Function Summary: 05/15: normal. Anesthesia Assessment and Plan Anesthesia History Personal History: No History of Anesthesia Complications Family History: No Family History of Anesthesia Complications Exercise Tolerance Exercise Tolerance: Metabolic Equivalents>4 Pertinent Negatives Pertinent Negatives: No Symptoms of GERD and No History of CVA/TIA Cardiac & Pulmonary Exam Cardiac Exam: Heart Murmur Present Pulmonary Exam: Wheezing Present (Albuterol in OR) Implantable Cardiac Device Does patient have a Pacemaker or an ICD?: No Airway Exam Known Difficult Airway: Yes Mallampati Class: 2 Mouth Opening: Normal (> 3cm) Thyromental Distance: Less than 3 cm Neck Range of Motion: Limited ROM Neck Circumference: Thick Teeth Condition: Generalized Poor Dentition and Removable Dentures/Plates Upper ASA Classification ASA Score: ASA 3 Emergency Case?: No NPO Status NPO Status: NPO Clears >2 hours, Solids >8 hours Anesthesia Plan Resuscitation Status: Full Code Anesthesia Technique: Spinal Anesthesia Airway Planned: Natural Airway Monitors Used: Standard Monitors, Arterial Line (As necessary) and Cerebral Oximetry (As necessary)
--- NOTE | 2022-03-26 08:55 | DI.RAD_ITS ---
Exam(s) XR HIP RT IN OR EXAM: XR HIP RT IN OR CLINICAL HISTORY: OSTEOARTHRITIS RIGHT HIP TECHNIQUE: 2D and realtime digital imaging was performed. CONTRAST MATERIAL: Refer to procedure report. COMPARISON: No exams were available for comparison FINDINGS: Fluoroscopy was provided for Dr. Galindo during the performance of a right total hip replacement. Please refer to the procedure report for complete details. Ka,r=4.8 mGy IMPRESSION: RADIATION DOSE DELIVERED:
--- NOTE | 2022-03-26 10:21 | W.PM.OP ---
Date of service: 03/26/22 Time of Service: 09:20 Operative Note Operative Note DATE OF PROCEDURE: 03/26/22 PRE-OP DIAGNOSIS: Right Hip Osteoarthritis POST-OP DIAGNOSIS: same PROCEDURE: Right Anterior Total Hip Arthroplasty with Intraoperative Navigation SURGEON: Jose Alberto Galindo [employer]ANCH SALES MANAGER: Audrey Cook ANESTHESIA TYPE: Spinal Refer to Anesthesia Record ESTIMATED BLOOD LOSS: 350 PATHOLOGY: none sent TOURNIQUET TIME: 0 COMPLICATIONS: Other (Small avulsion of the superior-anterior aspect of the greater trochanter not involving abductor insertion) Patient was transported to: PACU Patient's condition: stable Implants: 1. Depuy Bethany Acetabular Component, 52mm 2. Depuy Acetabular Liner, [id number] 3. Depuy Corail High Offset Collared Femoral Stem, Size 12 4. Depuy Altrx Ceramic Femoral Head, Size 36+1.5mm Indications: I have seen Silvia in clinic for symptoms of hip arthritis, confirmed with radiographic findings. She has exhausted nonoperative methods and was having significant limitations in daily function and desired better function and less pain. I discussed the technical details of a hip replacement. I explained the risks of the procedure to include, but not limited to, bleeding, infection, pain, stiffness, fracture, damage to nerves and vessels, damage to muscles and tendons, loosening, instability, leg length inequality, need for repeat procedure, blood clot and cardiopulmonary demise. Despite these risks, Silvia elected to proceed. Findings: There was significant signs of arthritis throughout the hip throughout the femur and the acetabulum. Procedure Description: Silvia was greeted in the preoperative holding area where the correct side was identified and marked. The consent was reviewed with the patient and signed. The history and physical was updated. All questions were answered. She was taken back to the operating room. A spinal anesthestic was then administered. The feet were wrapped with cast padding and Coban and then placed into the boot liners and then into the boots. Care was taken to protect the skin and make sure the heels were fully down and the boots were stable. The patient was then positioned onto the HANA table. Both legs were held in a neutral position. SCDs were applied. The patient was then slid down onto a peroneal post. Prophylactic antibiotics in the form of Cefazolin were administered. 1g of Tranxemic Acid was given intravenously within 30 minutes of incision. The right leg was then prepped with Chloraprep and draped in a standard fashion. A second prep with Chloraprep was performed prior to placement of a shower-curtain type drape with Iodine impregnated skin protection. A timeout to confirm correct identity, side and site, procedure, allergies, anesthesia, and medical concerns was performed. An obliquely oriented incision was made starting lateral to the ASIS and running distal over the Tensor Fascia Komal (TFL) muscle belly toward the fibular head, approximately 10cm. The skin and soft tissue was dissected sharply, through Elder?s fascia, and to the fascia of the TFL. With the fascia and superior border of the IT band identified, the fascia was incised with a new knife just above any perforators from the IT band. The TFL muscle belly was bluntly dissected away from the fascia and moved laterally. The fat between TFL and rectus was identified to ensure the dissection was not within the TFL. Blunt dissection created space between abductors and the capsule and retractor was placed over the lateral femoral neck. The fibers of the rectus femoris tendon were identified and these were freed from the anterior capsule. A second cobra retractor was placed around the medial femoral neck. The TFL was further retracted laterally to show the deep fascia. Careful dissection through this layer identified three main crossing vessels of the lateral femoral circumflex. These were cauterized in multiple locations and then cut without any noticeable bleeding. The TFL was further released bluntly from the deep fascia to expose anterior hip capsule and fat The Angel orthopaedic retractor was then placed beneath the TFL and against sartorius and medial soft tissues to protect and retract the soft tissues. A T-capsulotomy was then performed starting at the superior lateral acetabulum and moving distally to the intertrochanteric ridge. These capsular flaps were tagged with a No. 1 Ethibond and elevated from within. The capsular flaps were released to the shoulder of the lateral neck and to the lesser trochanter to give excellent visualization of the proximal femur. A neck osteotomy was performed using an oscillating saw based on preoperative templates. This cut started in the shoulder and of the lateral neck and exited medially. The saw was at all times directed medially to avoid injury to the greater trochanter. Gross traction was applied to the leg and the osteotomy opened. The femoral head was removed with a corkscrew, making sure to protect the TFL on its exit. Traction was released after head removal. This was measured on the back table to determine the starting reamer size. Portions of the rectus obscuring visualization were minimally elevated off the superior acetabulum. An anterior retractor was placed over the anterior wall between capsule and labrum and attached to the Gripper retraction system. The femur was rotated to 90 degrees and medial capsule was fully released until the lesser trochanter was palpable and visible; the femur was returned to 30 degrees. A posterior retractor was placed similarly between capsule and labrum. This provided excellent visualization. The contents of the cotyloid fossa were removed with electrocautery and the labrum was removed with a knife. There was a notable floor osteophyte. There was significant chondromalacia of the superior acetabulum. Acetabular reaming began with a 48mm reamer. This first reaming was directed anterior to posterior and medial to get down to the true floor. This was inspected and reamed until the true floor was reached. The anterior retractor was then released and entry and exit was provided by traction on the capsular flaps. I then reamed sequentially up to a 52mm reamer where good fit was obtained. The larger reamers were oriented based on anatomical reference of the anterior and lateral howard to ensure proper abduction and anteversion. Positioning and size was confirmed with the fluoroscopy. A 52mm Depuy Bethany acetabular component was selected. The deep tissues were irrigated. The acetabular component was then impacted in a position of about 40-45 degrees of abduction and 15-20 degrees of anteversion, using the patient?s anatomy as the ultimate landmark. Fluoroscopy was used to confirm this. There was excellent registered respiratory technician of the acetabular component and the inserting handle was removed. The acetabular liner, Depuy [id number] polyethylene liner, was inserted and lined up with the tines of the acetabular component. There was no soft tissue interposition. The liner was then impacted into position and confirmed to be well-seated. A portion of the leah-articular cocktail was then injected around the acetabulum into the capsule and periosteum. This cocktail consisted of 123mg of Ropivacaine, 0.25mg of Epinephrine, 0.04mg of Clonidine, and 15mg of Ketorolac, diluted to 50cc. The leg was rotated to 120 degrees. Any remaining medial capsule was released until the lesser trochanter was easily palpable. A retractor was placed medially. The lateral capsule was further released into the shoulder to allow access to the greater trochanter. A Murry retractor was placed over the greater trochanter which allowed the trochanter to flip in front of the capsule for excellent exposure. The leg was brought down into maximal extension and 20 degrees of adduction while ensuring there was no impingement on the acetabulum. Any remnant capsule within the trochanter was released. Piriformis and obturator externis were identified and protected. There was excellent access to the proximal femur. The lateral neck remnant was removed with a rongeur. A blunt canal probe was used to identify the canal and trajectory for later broaching. A box osteotome initiated the broach course. A small curved rasp and a curved curette were used to work laterally. Broaching then began with a size 8 Corail broach. This was inserted manually around the trochanter and into the canal before mallet blows. The broach was seated to a few millimeters below the cut level based on the neck cut and the preoperative template. Sequential broaching was continued with the Teqcyclese pneumatic broaching device until a tight fit was obtained with good rotational control of the femur. A trial high offset neck was inserted along with a +1.5 trial head. The leg was brought out of extension and adduction and then reduced with traction and internal rotation. The leg was stable anteriorly in a position of 30 degrees of extension and 90 degrees of external rotation. Fluoroscopy was used to ensure there was no fracture and the stem was seated well. Leg lengths were checked with an AP pelvis and pelvic reference points. [employer] navigation system was used to confirm appropriate positioning and leg length and offset. This demonstrated accurate offset recreation with slight (1-2mm) over leg length correction. THus, I advanced the broach another 1-2 mm. Once content with the desired offset and leg lengths, the leg was brought back into extension, external rotation and adduction. In removing the last broach there was a smal avulsion of the anterior aspect of the superior greater trochanter. It did not extend into the body of the trochanter or distally into the shaft. It was attached to neighboring bone through soft tissue and thus was left in place. The periosteum and surrounding tissue was injected with remaining portion of the leah-articular cocktail. The proximal femur was irrigated as well as the deep tissues. The Depuy Corail high offset collared stem, size 12, was then manually inserted into the proximal femur making sure to control rotation. It was then malleted into position with light blows, giving breaks to allow bone expansion and decrease risk of fracture. The selected Depuy Altrx Ceramic Head, size 36+1.5mm, was then placed onto the clean and dry trunnion and secured with impaction onto the tapered fit. The leg was brought back out of extension and adduction and reduced with traction and internal rotation. Stability was confirmed with no shuck at 90 degrees of external rotation and 30 degrees of extension. No impingement through range of motion arc. Final x-ray images were obtained with fluoroscopy to confirm adequate positioning. The greater trochanter was examined under fluoroscopy and showed no unstable fracture components. The small avulsion fracture which is identified was unable to be detailed on the x-ray. The deep tissues were thoroughly irrigated with Surgiphor, betadine solution. This was allowed to sit in the wound for 3 minutes before being thoroughly irrigated out with normal saline. The capsule was then reapproximated with the previously placed Ethibond sutures. The TFL fascia was finally closed with a No. 2 Stratafix, barbed suture. Deep tissues were then reapproximated with 0 Vicryl and a running 2-0 Vicryl. The skin was closed with a running 4-0 Monocryl in a subcuticular fashion. This was reinforced with skin glue. A Mepilex silver dressing was applied. At the end of the case, all counts were correct. Silvia was transferred to the hospital bed without difficulty and suffering a small avulsion fracture greater trochanter which will not change any postop protocols. Silvia has a good prognosis. Physical therapy will start today and without restrictions, weight-bearing as tolerated. Aspirin 81mg BID will be used for DVT prophylaxis.
--- NOTE | 2022-03-26 10:53 | IN_ITS ---
Date of service: 03/26/22 Time of Service: 10:53 PT Notes Visit Reasons: Right hip DJD Physical Therapy Day Surgery Initial Evaluation Date: 03/26/2022 Referring Doctor: DEV Gann PT Orders: PT CONSULT: S/p Ortho surgery Precautions: WBAT on right LE with AD. Patient Profile/Admitting Diagnosis: Silvia is a 77-year-old female with primary osteoarthritis of the right hip and is status post right anterior total hip arthroplasty on postoperative day 0. PMHX: All Active Problems? 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 coli UTI (Acute) Peripheral vascular angioplasty status with implants and grafts (Acute) Nasal obstruction (Chronic) Hypertrophy of inferior nasal turbinate (Chronic) Tendinitis of long head of biceps brachii of left shoulder (Acute) Left rotator cuff tear (Acute) Aortic stenosis (Chronic) Dyspnea on exertion (Acute) A-fib (Chronic) Acute UTI (Acute) Acute anemia (Acute) Lower GI bleed (Acute) Melena (Acute) Urinary tract infection (Acute) Anemia (Chronic) Hematochezia (Acute) Tubular adenoma of colon (Acute) Hyperplastic colon polyp (Acute) Primary osteoarthritis of right hip (Acute) Medical History? Breast Cancer Diabetes mellitus Difficult airway [place] [facility] [place] she is a difficult airway. She has had previous intubations with VL grade 1 view. Also easy mask with 90 mm OPA, and successful LMA placement in the past.Dizziness Dyslipidemia Gastro-esophageal reflux disease without esophagitis Hyperlipidemia Hypertension Hypothyroidism Lymphoma Nasal septal deviation STEVENS (nonalcoholic steatohepatitis) TERRY (obstructive sleep apnea) PVD (peripheral vascular disease) Recurrent UTI (03/15/16) Sensorineural hearing loss of both ears Shortness of breath SVT (supraventricular tachycardia) F/U with Dr. Sweet Syncope Type 2 diabetes mellitus with diabetic peripheral angiopathy without gangrene Surgical History? Excision of neck mass History of colonoscopy (~07/2021) History of esophagogastroduodenoscopy (EGD) (~07/2021) History of total left hip replacement Hx of tonsillectomy Nail removal (toe) Partial mastectomy with sentinal node Pt. states this is incorrect, she had a lumpectomy Rotator Cuff Repair Social History/Home Situation: Lives alone in a private home with 1 small step to enter. Independent with all aspects of ADLs prior to surgery has 2 four-wheel walkers at home. Equipment Owned/DME: 2 4WWs Subjective: Agreeable to PT consult. Pleasant and cooperative. Reports 1/10 pain in the right hip with movement. Denies headache, chest pain, and dizziness throughout session. Objective: General Observation: Mepilex Ag over surgical incision. TEDS in B legs. In NAD. Mental Status: Alert and oriented x4 Pain: 1/10 in the right hip ROM: Right Lower Extremity: Hip flexion WFL. Hip abduction WFL. Knee flexion WFL. Ankle dorsiflexion WFL. Ankle plantarflexion WFL. Left Lower Extremity: Hip flexion WFL. Hip abduction WFL. Knee flexion WFL. Ankle dorsiflexion WFL. Ankle plantarflexion WFL. Strength: Right Lower Extremity: Hip flexors 4/5. Hip abductors 4/5. Knee flexors 5/5. Knee extensors 5/5. Ankle dorsiflexors 5/5. Ankle plantarflexors 5/5. Left Lower Extremity:Hip flexors 5/5. Hip abductors 5/5. Knee flexors 5/5. Knee extensors 5/5. Ankle dorsiflexors 5/5. Ankle plantarflexors 5/5. Sensation: Intact as to pain and light pressure in bilateral lower extremities. Bed Mobility/Transfers: Supine to sit standby assist Sit to stand standby assist Stand to sit standby assist Bed to chair standby assist Gait: Tolerated level surface ambulation 150 feet using front wheeled walker with step through gait pattern requiring only standby assist. No shortness of breath. No loss of balance. No report of increased pain. Initial report of lightheadedness resolved after couple of minutes. Nurse Baptiste providing wheelchair follow for safety. Balance: Static Sitting: Normal Dynamic Sitting: Normal Static Standing: Fair Dynamic Standing: Fair normal Special Tests: Mobility Limitations Standardized Measure [facility] AM-PAC 6 clicks Basic Mobility Inpatient Short Form: Raw Score: 24 CMS Score: 0% deficit Informed Consent/Education: Patient instructed in purpose of PT consult. Packet containing EVAN exercise protocol has been given to patient. Education and training on initial set of exercises that can be done at home have been completed with patient. Assessment: Patient requires the use of a front wheeled walker to maximize independence and reduce fall risk at this time. Patient presents with clinical signs and symptoms consistent with current/admitting diagnoses that have resulted to mobility limitations, gait instability, generalized weakness, and impairment of motor control as demonstrated by the following impairment level findings: 1. Decreased strength to right hip major muscle groups 2. Impaired standing balance Impairments are contributing to the following functional limitations: 1. Inability to safely ambulate without assistive device 2. Increase completion time for mobility ADL performance 3. Increased fall risk Patient is assessed as a 00311 moderate complexity based on the following: History: 77-year-old female with impairment level findings, functional limitations, and past medical history as indicated above Examination: Demonstrable impairment in strength, balance, and mobility level with underlying impairments and functional limitations as documented above Presentation: Evolving Decision Makin moderate complexity Goals: N/A. PT evaluation and 1-2 treatment sessions only for functional mobility training using recommended AD and for HEP instruction. Plan of Care/Treatment Plan: N/A. PT evaluation and 1-2 treatment session only for functional mobility training using recommended AD and for HEP instruction. DISCHARGE RECOMMENDATIONS: [] Home with no services [] [] Home with services [specify] [X] Home with outpatient PT. Home when medically cleared by orthopedic surgeon. Will benefit from outpatient physical therapy services in order to facilitate return to independent community ambulation and ADL performance without an assistive device. [] SNF for continued rehabilitation [] [] Anthropologist Care [] [] SNF versus LTC based on ability to participate and progress [] TREATMENT CODE/TIME: 32258 x 20 minutes, 22388 x 12 minutes beginning at 10:53 AM. Thank you for the opportunity to participate in the care of this patient. Thank you for the opportunity to participate in the care of this patient. Pau Reynaga PT, DPT, CLT [facility] [place], [place]
--- NOTE | 2022-03-26 11:18 | W.ANESPOSTOP ---
Postoperative Evaluation Date, Time and Location Date Performed: 03/26/22 Time Performed: 10:17 Patient Location: Day Surgery Unit Vital Signs Most Recent Imported Vital Signs: Most Recent Vital Signs Temp Pulse Resp BP Pulse Ox 36.3 C L 57 L 16 128/53 L 93 03/26/22 10:27 03/26/22 10:27 03/26/22 10:27 03/26/22 10:27 03/26/22 10:27 Pain Score Most Recent Pain Score: Most Recent Pain Score Pain Level 0 03/26/22 10:27 Assessment Mental Status: Awake (Alert & Oriented to Patient Baseline) Airway and Respiratory Function: Patent airway with normal (patient baseline) respiratory exam Cardiovascular Function: Hemodynamically Stable Hydration Status: Adequately Hydrated Nausea & Vomiting: No Nausea or Vomiting Pain: Pain is tolerable per patient Peripheral Nerve Block: Patient did not receive a nerve block
== END 2022-03-26 12:13 | disposition home or self-care (01) ==
PROVIDERS: PCP Family Medicine; Visit Provider Student in an Organized Health Care Education/Training Program
PROC: (CPT 27130; principal; 2022-03-26 07:30)
DX: M16.11 Unilateral primary osteoarthritis, right hip (principal); M96.89 Other intraoperative and postprocedural complications and disorders of the musculoskeletal system; S72.115A Nondisplaced fracture of greater trochanter of left femur, initial encounter for closed fracture; Y79.2 Prosthetic and other implants, materials and accessory orthopedic devices associated with adverse incidents; Y92.234 Operating room of hospital as the place of occurrence of the external cause
CPT/HCPCS: 20985; 27130; C1776; 97162; 97530; 73501; J0690; J1100; J2370; J2405

== ENCOUNTER 2022-04-08 10:19 | Outpatient (CLI) | payer OTHER, SELFPAY ==
--- NOTE | 2022-04-08 10:00 | DI.RAD_ITS ---
Exam(s) XR HIP RT COMPLETE AP PELVIS EXAM: XR HIP RT COMPLETE AP PELVIS CLINICAL HISTORY: 1ST POST OP R EVAN. TECHNIQUE: 2D digital imaging was performed. COMPARISON: CR XR HIP RT COMPLETE AP PELVIS from 01/24/2022 XA XR HIP RT IN OR from 03/26/2022 FINDINGS: Two views: Stable position alignment of the components of the recently placed right hip prosthesis. There is a 2.8 by 2.4 cm calcific density seen just above the greater trochanter. This is possibly consistent w ith fracture fragment off the greater trochanter at this level. However, it was not evident on the f luoroscopic images of 03/26/2022. Left hip prosthesis remain stable. IMPRESSION: There is a 28 x 24 millimeter calcific density just above the greater trochanter of the right hip. T his was not evident on intraoperative images of 03/26/2022.. Therefore this may represent an interva l fracture. DATA REPOSITORY: RADIATION DOSE DELIVERED:
== END 2022-04-08 10:20 | disposition home or self-care (01) ==
LOC: DIORS 10:20
PROVIDERS: PCP Family Medicine; Referring Provider Family Medicine; Visit Provider Physician Assistant
DX: Z96.641 Presence of right artificial hip joint (principal); Z47.1 Aftercare following joint replacement surgery
CPT/HCPCS: 73502

== ENCOUNTER → 2022-04-23 00:56 | Outpatient (CLI) | payer OTHER, SELFPAY ==
--- NOTE | 2022-04-23 | DI.US_ITS ---
Exam(s) US ABDOMEN LIMITED EXAM: US ABDOMEN LIMITED CLINICAL HISTORY: 6 MO F/U LIVER,CIRRHOSIS, K74.69,? HCC TECHNIQUE: Ultrasound performed using standard protocol. COMPARISON: US US ECHOCARDIOGRAM W BUBBLES from 05/28/2021 FINDINGS: The liver is enlarged and has a markedly nodular surface contour consistent with cirrhosis. No focal hepatic lesion seen. Portal venous flow is hepatopetal. Gallbladder is unremarkable in appearance with no cholelithiasis or gallbladder wall thickening. Pancreas appears intact as visualized. Right kidney appears normal. IMPRESSION: The appearance is consistent with hepatic cirrhosis with no focal hepatic lesion seen. DATA REPOSITORY:
== END ==
PROVIDERS: PCP Family Medicine; Visit Provider Family Medicine
DX: K74.60 Unspecified cirrhosis of liver (principal)
CPT/HCPCS: 76705

== ENCOUNTER → 2022-05-13 14:37 | Outpatient (BNVA) | payer OTHER, SELFPAY | PROVIDERS: PCP Family Medicine; Referring Provider Family Medicine; Visit Provider Student in an Organized Health Care Education/Training Program | DX: Z47.1 Aftercare following joint replacement surgery (principal); Z96.641 Presence of right artificial hip joint ==

== ENCOUNTER 2022-06-24 14:59 | Outpatient (CLI) | payer OTHER, SELFPAY ==
--- NOTE | 2022-06-24 14:45 | DI.RAD_ITS ---
Exam(s) XR KNEE LT 3V AP,LAT,ÁNGEL EXAM: XR KNEE LT 3V AP,LAT,ÁNGEL CLINICAL HISTORY: left knee pain. TECHNIQUE: 2D digital imaging was performed. Three views. COMPARISON: CR XR knee RT 3V AP,lat,ángel from 03/31/2019 FINDINGS: BONES: No acute fracture is present. No bony destructive lesion is seen. JOINTS: Moderate narrowing medial femoral tibial joint. Mild spurring from the femoral condyles and tibial plateaus. Spurring at the patellofemoral joint and quadriceps insertion. The knee is normall y aligned. No joint effusion is seen. SOFT TISSUE: Vascular calcifications. IMPRESSION: Moderate degenerative changes medial femoral tibial joint. DATA REPOSITORY: RADIATION DOSE DELIVERED:
== END 2022-06-24 15:00 | disposition home or self-care (01) ==
LOC: DIORS 14:59
PROVIDERS: PCP Family Medicine; Referring Provider Family Medicine; Visit Provider Physician Assistant
DX: M17.12 Unilateral primary osteoarthritis, left knee (principal); M70.62 Trochanteric bursitis, left hip
CPT/HCPCS: 20610; 73562; J1040

== ENCOUNTER 2022-07-16 04:20 | Emergency (ER) | payer OTHER, SELFPAY ==
[2022-07-16 04:28] VITALS: BP 173/59; PULSE 71; RESP 20; TEMP 36.5; O2SAT 96
--- NOTE | 2022-07-16 04:30 | RT.EKG_ITS ---
APPROVED REPORT Exam: Resting ECG Reason for Exam: sob Patient Location: E HR:69 bpm ECG Measurements Heart Rate 69 AXIS MT 200 P 70 QRSd 77 QRS 58 QT 397 T 39 QTc 425 Conclusion Sinus rhythm...normal P axis, V-rate 60- 99 Low voltage, precordial leads...precordial leads <1.0mV sinus rhtyhm, normal axis, normal intervals, non ischemic
--- NOTE | 2022-07-16 04:30 | DI.RAD_ITS ---
Exam(s) XR CHEST 1V IN DI DEPT EXAM: XR CHEST 1V IN DI DEPT CLINICAL HISTORY: shortness of breath TECHNIQUE: 2D digital imaging was performed of the chest. One image was obtained. An AP view was ob tained. COMPARISON: CR XR PORTABLE CHEST AP from 04/18/2021 FINDINGS: MEDIASTINUM: Normal. HEART: Normal. PULMONARY VASCULATURE: There is prominence of the pulmonary vessels raising the question of pulmonary artery hypertension. Please correlate clinically. LUNGS: There are increased lung markings in the bases bilaterally, left greater than right. No focal consolidations are present. PLEURAL SPACE: No pleural effusion or pneumothorax. BONE:Within normal limits for the patient's age. OTHER FINDINGS:Normal. IMPRESSION: Increased lung markings in the bases, left greater than right. Pneumonia cannot be excluded. DATA REPOSITORY: RADIATION DOSE DELIVERED:
--- NOTE | 2022-07-16 04:43 | ED.GENADUL_ITS ---
Discharge Plan Disposition Patient Disposition: Home Condition: Improving Discharge Details Chief Complaint: SOB Clinical Impression: Shortness of breath Primary Care Provider: Jena Mitchell ED Provider: Yan Redding Home Meds and New Rx's Prescriptions: No Action irbesartan 300 mg tablet 300 mg PO DAILY gabapentin 100 mg capsule 100 mg PO QHS ferrous sulfate [Feosol] 325 mg (65 mg iron) tablet 650 mg PO DAILY diltiazem HCl [Cartia XT] 300 MG capsule,extended release 24hr 300 mg PO DAILY escitalopram oxalate 20 MG tablet 20 mg PO DAILY Victoza 2-Tray 0.6 mg/0.1 mL (18 mg/3 mL) pen injector 0.6 mg subcut HS fluticasone propionate [Allergy Relief (fluticasone)] 50 mcg/actuation spray,suspension 2 spray intranasal DAILY PRN Rx Instructions: administer into each nostril aspirin [Adult Aspirin Regimen] 81 mg tablet,delayed release (DR/EC) 81 mg PO DAILY levothyroxine 125 mcg Tablet 125 mcg PO DAILY sucralfate 1 gram Tablet 1 g PO QACHS Qty: 120 0RF meclizine 12.5 mg tablet See Rx Instructions PO DAILY PRN Rx Instructions: take 1-2 tablets every 8 hours as needed for nausea. pantoprazole 40 mg tablet,delayed release (DR/EC) 40 mg PO BID fexofenadine [Nelda] 60 mg Tablet 60 mg PO DAILY magnesium [Mag-200] 200 mg Tablet 400 mg PO DAILY AZO Complete Feminine Balance 5 billion cell Capsule 1 cap PO acetaminophen 500 mg tablet 500 mg PO Q6H PRN (Reason: pain) Qty: 60 2RF Discharge Instructions Instructions: Dyspnea (ED) Additional Instructions: Please follow-up with your primary care physician. Please return to the emergency department for any worsening symptoms. Medical Decision Making 77-year-old female history of A. fib CKD sleep apnea presents with shortness of breath this evening, uses CPAP at night. Does have edema to bilateral ankles. Was on Lasix in the past however was taken off because her blood pressure normalized. Afebrile nontoxic no hypoxia. Consider symptomatic sleep apnea versus viral syndrome versus worsening CKD versus CHF less likely ACS or PE. Screening labs imaging trial of Lasix likely home with close follow-up. 5: 58 putting out good urine after Lasix administration. Feeling better. No respiratory distress, normoxic. X-ray read as possible left lower lobe consolidation however patient has no fever has no productive cough no chills no sick symptoms of infection. More likely early fluid overload state. Patient to follow-up with her primary care physician. Given return precautions for worsening symptoms. Sign Out No HPI General Date/Time Provider Initiated Documentation: 07/16/22 04:21 . HPI Narrative: 77-year-old female history of CKD, A. fib, presents with shortness of breath worsening over the last day worse with laying flat, resolved by sitting, uses CPAP at night. Related Data Home Medications Medication Instructions Recorded Confirmed diltiazem HCl 300 mg 300 mg PO DAILY 02/29/16 07/16/22 capsule,extended release 24 hr (Cartia XT) escitalopram oxalate 20 mg tablet 20 mg PO DAILY 02/29/16 07/16/22 gabapentin 100 mg capsule 100 mg PO QHS 12/11/20 07/16/22 fluticasone propionate 50 2 spray intranasal DAILY PRN 04/25/21 07/16/22 mcg/actuation nasal spray,suspension (Allergy Relief (fluticasone)) liraglutide 0.6 mg/0.1 mL (18 mg/3 0.6 mg subcut HS 04/25/21 07/16/22 mL) subcutaneous pen injector (Victoza 2-Tray) levothyroxine 125 mcg tablet 125 mcg PO DAILY 06/06/21 07/16/22 sucralfate 1 gram tablet 1 g PO QACHS #120 tabs 06/08/21 07/16/22 ferrous sulfate 325 mg (65 mg 650 mg PO DAILY 06/22/21 07/16/22 iron) tablet (Feosol) meclizine 12.5 mg tablet See Rx Instructions PO DAILY PRN 10/25/21 07/16/22 pantoprazole 40 mg tablet,delayed 40 mg PO BID 10/25/21 07/16/22 release irbesartan 300 mg tablet 300 mg PO DAILY 02/14/22 07/16/22 acetaminophen 500 mg tablet 500 mg PO Q6H PRN pain #60 tabs 03/26/22 07/16/22 aspirin 81 mg tablet,delayed 81 mg PO DAILY 06/19/22 07/16/22 release (Adult Aspirin Regimen) L. crisanalia, gasseri, jensenii, 1 cap PO 07/16/22 rhamnosus 5 billion cell capsule (AZO Complete Feminine Balance) fexofenadine 60 mg tablet 60 mg PO DAILY 07/16/22 07/16/22 magnesium 200 mg tablet 400 mg PO DAILY 07/16/22 07/16/22 Previous Rx's Medication Instructions Recorded sucralfate 1 gram tablet 1 g PO QACHS #120 tabs 06/08/21 acetaminophen 500 mg tablet 500 mg PO Q6H PRN pain #60 tabs 03/26/22 Allergies Allergy/AdvReac Type Severity Reaction Status Date / Time tamoxifen Allergy Intermediate liver Verified 07/16/22 04:41 complications amlodipine AdvReac Intermediate leg pain Verified 07/16/22 04:41 atenolol AdvReac Intermediate leg pain Verified 07/16/22 04:41 doxazosin AdvReac Intermediate leg pain Verified 07/16/22 04:41 enalapril AdvReac Intermediate leg pain Verified 07/16/22 04:41 glipizide AdvReac Intermediate body aches Verified 07/16/22 04:41 lisinopril AdvReac Intermediate leg pain Verified 07/16/22 04:41 sertraline AdvReac Intermediate leg pain Verified 07/16/22 04:41 simvastatin [From Zocor] AdvReac Intermediate leg pain Verified 07/16/22 04:41 Duhltvz-LQI-HbM Reductase AdvReac Intermediate leg pains Verified 07/16/22 04:41 Inhibitor [Qhssfna-Xlt-Qrz Reductase Inhibitor] ticlopidine AdvReac Intermediate leg pain Verified 07/16/22 04:41 valsartan AdvReac Intermediate leg pain Verified 07/16/22 04:41 General Stated Complaint: SOB JUANITA: 2 Review of Systems Narrative: Review of Systems Constitutional: negative Eyes: negative ENT: negative Cardiovascular: negative Respiratory: shortness of breath Gastrointestinal: negative : negative Musculoskeletal: negative Skin: negative Neurologic: negative Psych: negative PFSH All Active Problems (Updated 07/16/22 @ 05:59 by Yan Redding MD) Shortness of breath (Acute) Trochanteric bursitis, left hip (Acute) Left knee DJD (Acute) Depo-Medrol injection: 06/24/2022 Benign paroxysmal positional vertigo (Acute) Sleep apnea (Acute) Mitral regurgitation (Chronic) Diastolic dysfunction (Acute) CKD (chronic kidney disease) (Chronic) History of total right hip replacement (Acute 03/26/22) Diabetes mellitus (Chronic) SVT (supraventricular tachycardia) (Chronic) History of syncope (Chronic) Renal artery stenosis (Chronic) GERD (gastroesophageal reflux disease) (Chronic) 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 coli UTI (Acute) Peripheral vascular angioplasty status with implants and grafts (Acute) Nasal obstruction (Chronic) Hypertrophy of inferior nasal turbinate (Chronic) Tendinitis of long head of biceps brachii of left shoulder (Acute) Left rotator cuff tear (Acute) Aortic stenosis (Chronic) Dyspnea on exertion (Acute) A-fib (Chronic) Acute UTI (Acute) Acute anemia (Acute) Lower GI bleed (Acute) Melena (Acute) Urinary tract infection (Acute) Anemia (Chronic) Hematochezia (Acute) Tubular adenoma of colon (Acute) Hyperplastic colon polyp (Acute) Medical History (Updated 07/16/22 @ 05:59 by Yan Redding MD) Breast Cancer Diabetes mellitus Difficult airway [place] [facility] [place] notes she is a difficult airway. She has had previous intubations with VL grade 1 view. Also easy mask with 90 mm OPA, and successful LMA placement in the past. Dizziness Dyslipidemia Gastro-esophageal reflux disease without esophagitis History of small bowel obstruction Hyperlipidemia Hypertension Hypothyroidism Lymphoma Nasal septal deviation STEVENS (nonalcoholic steatohepatitis) TERRY (obstructive sleep apnea) PVD (peripheral vascular disease) Recurrent UTI (03/15/16) Sensorineural hearing loss of both ears Shortness of breath SVT (supraventricular tachycardia) F/U with Dr. Sweet Syncope Type 2 diabetes mellitus with diabetic peripheral angiopathy without gangrene Surgical History (Updated 04/08/22 @ 10:20 by Merlene Ugalde RN) Excision of neck mass History of colonoscopy (~07/2021) History of esophagogastroduodenoscopy (EGD) (~07/2021) History of total left hip replacement Hx of tonsillectomy Nail removal (toe) Partial mastectomy with sentinal node Pt. states this is incorrect, she had a lumpectomy Rotator Cuff Repair Social History Smoking/Tobacco Use Status: Never Smoking risk assessment performed?: Yes Alcohol Intake: never Drug use: Never Substance use type: does not use Do you feel safe at home: Yes Do you feel safe in your relationship?: Yes Female Reproductive History Menstrual Menopause type: natural Exam Narrative Exam Narrative: Physical Examination General: alert, awake, cooperative, resting comfortably, no acute distress HEENT: normocephalic, atraumatic; PERRL, EOM intact, conjunctiva normal; no nasal discharge; moist mucous membranes, oral and pharyngeal mucosa normal, tolerating secretions Neck: supple, trachea midline; full ROM Chest: normal to inspection Respiratory: normal respiratory effort, speaking in full sentences, clear to auscultation, no wheezing, rales or rhonchi Cardiac: regular rate, regular rhythm, S1S2 intact, no murmurs rubs or gallops GI: abdomen soft, non-tender, non-distended; no palpable mass or hepatosplenomegaly Skin: no lesions, rashes or trauma appreciated Neuro: AAOx3, normal speech, moving all extremities Extremities: Edema to bilateral ankles Psych: Appropriate mood and affect Course Vital Signs Vital signs: Vital Signs Temperature 36.5 C 07/16/22 04:28 Pulse 71 07/16/22 04:28 Respiratory Rate 20 07/16/22 04:28 Blood Pressure 173/59 H 07/16/22 04:28 Pulse Oximetry 96 07/16/22 04:28 Temperature 36.5 C 07/16/22 04:28 Temperature Source Temporal Artery Scan 07/16/22 04:28 Pulse 71 07/16/22 04:28 Respiratory Rate 20 07/16/22 04:28 Respiratory Effort 07/16/22 04:28 Blood Pressure 173/59 H 07/16/22 04:28 Blood Pressure Position Supine 07/16/22 04:28 Pulse Oximetry 96 07/16/22 04:28 Pain Level 0 07/16/22 04:28
[2022-07-16 04:58] LABS: Abs Immature Grans 0.02 10^3/uL (0.0-0.06); Absolute Basophil Count 0.03 10^3/uL (0.0-0.2); Absolute Lymphocyte Count 1.07 10^3/uL (1.2-3.4); Absolute Monocyte Count 0.52 10^3/uL (0.1-0.8); Absolute Neutrophil Count 2.44 10^3/uL (1.2-6.7); Basophils % 0.7; Eosinophils % 4.7; HCT 34.4 % (36.0-46.0); HGB 11.1 g/dL (11.2-15.7); Immature Grans % 0.5; MCH 31.5 pg (27.0-33.0); MCHC 32.3 % (32.0-36.0); MCV 98 fL (80-95); MPV 10.4 fL (8.0-11.0); Monocytes % 12.1; Platelet Count 112 10^3/uL (130-400); RBC 3.52 10^6/uL (3.93-5.22); RDW 13.1 % (11.7-14.6); RDW-SD 46.8 fL; WBC 4.28 10^3/uL (4.4-10.8)
[2022-07-16] MEDS: Furosemide 40 MG/4 ML VIAL IVP (05:13)
[2022-07-16 05:20] VITALS: RESP 20
[2022-07-16 05:21] LABS: ALT 37 U/L (14-59); AST 30 U/L (15-37); Albumin 3.3 g/dL (3.4-5.0); Alkaline Phosphatase 129 U/L (46-116); Anion Gap 8.6 mmol/L (3-11); BUN 27 mg/dL (7-18); Bilirubin, Total 0.5 mg/dL (0.2-1.0); CO2 27.4 mmol/L (21.0-32.0); CREATININE 1.5 mg/dL (0.55-1.02); Calcium 9.1 mg/dL (8.5-10.1); Chloride 105 mmol/L (98-107); Estimated GFR 35.23 (mL/min/1.73m2); Glucose 123 mg/dL (74-106); NT-proBNP 1638 pg/mL (<300); Sodium 141 mmol/L (136-145); Total Protein 6.4 g/dL (6.4-8.2); Troponin I < 50 ng/L (<or=60)
--- NOTE | 2022-07-16 05:35 | DI.VRAD_ITS ---
PROCEDURE INFORMATION: Exam: XR Chest Exam date and time: 07/16/2022 5:06 AM Age: 77 years old Clinical indication: Shortness of breath; Patient HX: SOB TECHNIQUE: Imaging protocol: Radiologic exam of the chest. Views: 1 view. COMPARISON: CT CHEST W 10/30/2021 3:05 PM FINDINGS: Lungs: There is increased opacity through the left lower lung zone which obscures the left hemidiaphragm. Otherwise, no pulmonary consolidation is seen. Pleural spaces: A left pleural effusion is not confidently excluded. No right-sided pleural effusion or pneumothorax is seen. Heart/Mediastinum: Heart size appears normal. The main pulmonary arteries are enlarged suggesting pulmonary hypertension. Atherosclerotic calcification noted at the apex of the aortic arch. Bones/joints: The visualized bony structures appear grossly intact, as seen. There are osteophytes along the margin of the thoracic spine. IMPRESSION: 1. Increased opacity through the left lower lung zone. Consolidation suspected. Pneumonia or aspiration could have this appearance. Clinical correlation is recommended. 2. A small left pleural effusion is not confidently excluded. Dictated and Authenticated by: Kong Gruber MD. Ordering:JULIAN Heredia MD
== END 2022-07-16 06:58 | disposition home or self-care (01) ==
PROVIDERS: Emergency Provider Emergency Medicine; PCP Family Medicine
DX: R06.02 Shortness of breath (principal); R60.0 Localized edema
CPT/HCPCS: 36415; 80053; 93005; 96374; 99284; 71045; 83880; 84484; 85025; 93010; J1940

== ENCOUNTER 2022-08-20 04:01 | Outpatient (CLI) | payer OTHER, SELFPAY ==
[2022-08-20 09:39] LABS: Abs Immature Grans 0.02 10^3/uL (0.0-0.06); Absolute Basophil Count 0.03 10^3/uL (0.0-0.2); Absolute Eosinophil Count 0.22 10^3/uL (0.0-0.7); Absolute Lymphocyte Count 1.14 10^3/uL (1.2-3.4); Absolute Monocyte Count 0.52 10^3/uL (0.1-0.8); Basophils % 0.7; Eosinophils % 5.3; HCT 38.7 % (36.0-46.0); HGB 12.5 g/dL (11.2-15.7); Immature Grans % 0.5; Lymphocytes % 27.6; MCH 31.3 pg (27.0-33.0); MCHC 32.3 % (32.0-36.0); MCV 97 fL (80-95); MPV 10.4 fL (8.0-11.0); Monocytes % 12.6; Neutrophils % 53.3; Platelet Count 125 10^3/uL (130-400); RDW 12.8 % (11.7-14.6); RDW-SD 45.7 fL; WBC 4.13 10^3/uL (4.4-10.8)
[2022-08-20 10:12] LABS: ALT 38 U/L (14-59); AST 36 U/L (15-37); Albumin 3.5 g/dL (3.4-5.0); Alkaline Phosphatase 199 U/L (46-116); Anion Gap 8.3 mmol/L (3-11); BUN 21 mg/dL (7-18); Bilirubin, Total 0.6 mg/dL (0.2-1.0); CO2 26.7 mmol/L (21.0-32.0); CREATININE 1.2 mg/dL (0.55-1.02); Calcium 9.2 mg/dL (8.5-10.1); Chloride 107 mmol/L (98-107); Estimated GFR 46.05 (mL/min/1.73m2); Glucose 120 mg/dL (74-106); LDH 165 U/L (81-234); Potassium 4.5 mmol/L (3.5-5.1); Sodium 142 mmol/L (136-145); Total Protein 6.9 g/dL (6.4-8.2)
== END 2022-08-20 04:02 | disposition home or self-care (01) ==
LOC: LBO 04:01
PROVIDERS: PCP Family Medicine; Visit Provider Internal Medicine Hematology & Oncology
DX: C85.80 Other specified types of non-Hodgkin lymphoma, unspecified site (principal)
CPT/HCPCS: 36415; 80053; 83615; 85025

== ENCOUNTER 2022-09-27 13:46 | Outpatient (REF) | payer MEDICARE, SELFPAY ==
[2022-09-27 19:47] LABS: Bilirubin Negative (Negative); Blood Negative (Negative); Clarity Clear (Clear); Glucose 100 mg/dL (Negative); Ketones Trace mg/dL (Negative); Leukocyte Esterase Negative (Negative); Nitrite Positive (Negative); pH 5.5 (5-8)
[2022-09-27 19:57] LABS: Bacteria Many HPF (Negative); Epithelial Cells Few HPF (Negative); RBC 0-2 HPF (0-2); WBC 20-50 HPF (0-5)
[2022-09-27 19:58] LABS: C & S Indicated? Yes; Casts Negative LPF (Negative); Crystals Negative HPF (Negative); Mucus Negative (Negative)
[2022-09-27 20:08] LABS: TSH (W/Ref FT4) 4.66 uIU/mL (0.36-3.74)
[2022-09-27 20:25] LABS: COMMENT (LAB VIEW ONLY) 74.94 mg/dL
[2022-09-27 20:56] LABS: FREE T4 0.98 ng/dL (0.76-1.46)
== END 2022-09-27 13:47 | disposition home or self-care (01) ==
LOC: NCHCN 13:46
PROVIDERS: PCP Family Medicine; Visit Provider Family Medicine
DX: E11.9 Type 2 diabetes mellitus without complications (principal); N39.41 Urge incontinence
CPT/HCPCS: 87077; 81003; 81015; 82043; 82570; 84439; 84443; 87086; 87186

== ENCOUNTER 2022-10-23 01:14 | Outpatient (CLI) | payer MEDICARE, SELFPAY ==
--- NOTE | 2022-10-23 | DI.US_ITS ---
Exam(s) US RENAL EXAM: US RENAL CLINICAL HISTORY: URINARY INCONTINENCE N39.41. TECHNIQUE: Peoples scale, color and spectral Doppler were used. COMPARISON: No exams were available for comparison FINDINGS: Renal size in cm: Right: 10.8. Left: 10.2. Echogenicity: Normal. Hydronephrosis: No. Cyst or mass: No. Nephrolithiasis: No. Other findings: Incidental note is made of splenomegaly with the spleen measuring 17 cm long. Bladder:Normal. Ureteral jets: Right: Not visualized on this examination. Left: Visualized and unremarkable. Prevoid vol:100 cc Postvoid vol:0 cc Renal color flow: Symmetric and within normal limits. IMPRESSION: 1. Unremarkable renal examination. 2. Splenomegaly. Unexpected findings DATA REPOSITORY:
== END 2022-10-23 01:34 ==
PROVIDERS: PCP Family Medicine; Visit Provider Family Medicine
DX: N39.41 Urge incontinence (principal); R16.1 Splenomegaly, not elsewhere classified
CPT/HCPCS: 76770

== ENCOUNTER 2022-11-02 20:35 | Emergency (ER) | payer MEDICARE, SELFPAY ==
[2022-11-02] VITALS (19 sets, daily range): BP systolic 170–196; BP diastolic 44–74; PULSE 68–94; RESP 14–28; TEMP 37; O2SAT 90–93
--- NOTE | 2022-11-02 20:45 | DI.RAD_ITS ---
Exam(s) XR PORTABLE CHEST AP EXAM: XR PORTABLE CHEST AP CLINICAL HISTORY: sob,cough, congestion, r/o pneumonia TECHNIQUE: 2D digital imaging was performed. COMPARISON: CR,XR XR CHEST 1V IN DI DEPT from 07/16/2022 FINDINGS: Leads overlie the chest. This somewhat obscures the lower lobes. The heart size is normal. There is a small small left pleural effusion is also probably tiny right p leural effusion. There are increased interstitial markings vascular prominence which could indicate mild CHF. Mildly increased densities at the left lung base greater than right. This could indicate pneumonia. Degenerative changes are noted in the spine. IMPRESSION: Question of CHF and/or left lower lobe infiltrate. DATA REPOSITORY: RADIATION DOSE DELIVERED:
--- NOTE | 2022-11-02 20:45 | RT.EKG_ITS ---
APPROVED REPORT Exam: Resting ECG Reason for Exam: sob Patient Location: E HR:72 bpm ECG Measurements Heart Rate 72 AXIS IL 190 P 82 QRSd 86 QRS 67 QT 426 T 49 QTc 466 Conclusion Sinus rhythm...normal P axis, V-rate 60- 99 Physician: no stemi
--- NOTE | 2022-11-02 21:02 | W.ED.GENAD ---
Discharge Plan Disposition Patient Disposition: Home Condition: Good Discharge Details Clinical Impression: Community acquired pneumonia Primary Care Provider: Jena Mitchell ED Provider: Saeid Kent Home Meds and New Rx's Prescriptions: New doxycycline hyclate 100 mg capsule 100 mg PO BID Qty: 14 0RF Continued irbesartan 300 mg tablet 300 mg PO DAILY gabapentin 100 mg capsule 100 mg PO QHS ferrous sulfate [Feosol] 325 mg (65 mg iron) tablet 650 mg PO DAILY diltiazem HCl [Cartia XT] 300 MG capsule,extended release 24hr 300 mg PO DAILY escitalopram oxalate 20 MG tablet 20 mg PO DAILY Victoza 2-Tray 0.6 mg/0.1 mL (18 mg/3 mL) pen injector 0.6 mg subcut HS fluticasone propionate [Allergy Relief (fluticasone)] 50 mcg/actuation spray,suspension 2 spray intranasal DAILY PRN Rx Instructions: administer into each nostril aspirin [Adult Aspirin Regimen] 81 mg tablet,delayed release (DR/EC) 81 mg PO DAILY levothyroxine 125 mcg Tablet 125 mcg PO DAILY meclizine 12.5 mg tablet See Rx Instructions PO DAILY PRN Rx Instructions: take 1-2 tablets every 8 hours as needed for nausea. fexofenadine 60 mg Tablet 60 mg PO DAILY magnesium 200 mg Tablet 400 mg PO DAILY AZO Complete Feminine Balance 5 billion cell Capsule 1 cap PO acetaminophen 500 mg tablet 500 mg PO Q6H PRN (Reason: pain) Qty: 60 2RF Discharge Instructions Instructions: Community Acquired Pneumonia (ED) Additional Instructions: At this time you have mild pneumonia. Please take the antibiotic doxycycline as directed. If you notice any worsening of your symptoms, or any new symptoms such as vomiting, diarrhea, fever, chills, shortness of breath, chest pain, numbness, weakness, or fainting , please return immediately to the emergency department for reevaluation. Please follow up with your primary care provider as soon as possible for reassessment and reevaluation. As always, it was a pleasure participating in your medical care today. Referrals: Jena Mitchell MD [Primary Care Provider] - Medical Decision Making 77-year-old female with a past medical history of GERD, hypertension, hypothyroidism, high cholesterol, type 2 diabetes, previous SVT, who was on anticoagulants before but was taken off after GI bleed, who presents today for evaluation of shortness of breath. Patient states that for the last 5 days she has had mild cold symptoms with congestion runny nose and cough. She has been coughing up green sputum. She noticed tonight that she felt more short of breath, and checked her oxygen and noticed that she was in the low 80s to high 90s. She came to the ER for further assessment. She denies any fever. She denies any vomiting or diarrhea. She denies any chest pain. No other complaints at this time. She does admit to a few pound weight gain, she did have an echo in 2020 which showed an normal ejection fraction. Physical exam demonstrates a well-appearing female. Oxygenation stable, she is mildly hypertensive but she has not taken her nighttime blood pressure medications. No significant crackles noted on lung exam, no pitting edema in the lower extremities. Differential includes mild CHF, pneumonia, COVID. Symptoms seem less likely for PE. She denies any history of blood clots. We will evaluate for these etiologies, monitor closely and reassess. 11:31 PM Chest x-ray shows evidence of mild pneumonia. Laboratory work-up is stable, EKG stable, troponin negative, proBNP slightly elevated at 1500, COVID flu and RSV are all negative. We did give 20 mg of Lasix IV, chest x-ray does show what I feel is some superimposed mild mild CHF. After Lasix and IV doxycycline patient was ambulated throughout the ER, and clinically she feels well/much better. Oxygenation got to the lowest point of 89% however it came back to the 90s very quickly. She otherwise feels well. Discussed observation versus discharge and patient prefers to go home at this time when the risks and benefits. Patient will be discharged. Prescription for doxycycline will be sent to her pharmacy. Discussed red flags for which to return. I have extensively reviewed the treatment plan and discharge instructions with the patient. I have addressed all patient concerns at this time. The patient was made aware of what symptoms to monitor for that would warrant a return to the emergency department. Discussed the plan with the patient, they demonstrate verbal understanding and agreement with our assessment and plan at this time. The documentation in this chart was dictated using [employer] dictation software. Please excuse any dictation errors. FINDINGS: Lungs: Left basilar subsegmental airspace consolidation which may represent infiltrate or atelectasis. Pleural spaces: Bilateral costophrenic angle blunting consistent with small pleural effusions. Heart/Mediastinum: Normal heart size. Bones/joints: Degenerative thoracic spine. IMPRESSION: 1. Mild left basilar airspace consolidation suggesting atelectasis or basilar infiltrate. 2. Small bilateral pleural effusions. 3. Degenerative thoracic spine features. Thank you for allowing us to participate in the care of your patient. Dictated and Authenticated by: Fran Monahan MD 11/02/2022 10:02 PM Eastern Time ([place] & [place]) HPI General Date/Time Provider Initiated Documentation: 11/02/22 20:35. HPI Narrative: 77-year-old female with a past medical history of GERD, hypertension, hypothyroidism, high cholesterol, type 2 diabetes, previous SVT, who was on anticoagulants before but was taken off after GI bleed, who presents today for evaluation of shortness of breath. Patient states that for the last 5 days she has had mild cold symptoms with congestion runny nose and cough. She has been coughing up green sputum. She noticed tonight that she felt more short of breath, and checked her oxygen and noticed that she was in the low 80s to high 90s. She came to the ER for further assessment. She denies any fever. She denies any vomiting or diarrhea. She denies any chest pain. No other complaints at this time. She does admit to a few pound weight gain, she did have an echo in 2020 which showed an normal ejection fraction. Related Data Home Medications Medication Instructions Recorded Confirmed diltiazem HCl 300 mg 300 mg PO DAILY 02/29/16 07/16/22 capsule,extended release 24 hr (Cartia XT) escitalopram oxalate 20 mg tablet 20 mg PO DAILY 02/29/16 07/16/22 gabapentin 100 mg capsule 100 mg PO QHS 12/11/20 07/16/22 fluticasone propionate 50 2 spray intranasal DAILY PRN 04/25/21 07/16/22 mcg/actuation nasal spray,suspension (Allergy Relief (fluticasone)) liraglutide 0.6 mg/0.1 mL (18 mg/3 0.6 mg subcut HS 04/25/21 07/16/22 mL) subcutaneous pen injector (Pixium Visionza 2-Tray) levothyroxine 125 mcg tablet 125 mcg PO DAILY 06/06/21 07/16/22 ferrous sulfate 325 mg (65 mg 650 mg PO DAILY 06/22/21 07/16/22 iron) tablet (Feosol) meclizine 12.5 mg tablet See Rx Instructions PO DAILY PRN 10/25/21 07/16/22 irbesartan 300 mg tablet 300 mg PO DAILY 02/14/22 07/16/22 acetaminophen 500 mg tablet 500 mg PO Q6H PRN pain #60 tabs 03/26/22 07/16/22 aspirin 81 mg tablet,delayed 81 mg PO DAILY 06/19/22 07/16/22 release (Adult Aspirin Regimen) L. crispatus, gasseri, jensenii, 1 cap PO 07/16/22 rhamnosus 5 billion cell capsule (AZO Complete Feminine Balance) fexofenadine 60 mg tablet 60 mg PO DAILY 07/16/22 07/16/22 magnesium 200 mg tablet 400 mg PO DAILY 07/16/22 07/16/22 doxycycline hyclate 100 mg capsule 100 mg PO BID #14 caps 11/02/22 Previous Rx's Medication Instructions Recorded acetaminophen 500 mg tablet 500 mg PO Q6H PRN pain #60 tabs 03/26/22 doxycycline hyclate 100 mg capsule 100 mg PO BID #14 caps 11/02/22 Allergies Allergy/AdvReac Type Severity Reaction Status Date / Time tamoxifen Allergy Intermediate liver Verified 07/16/22 04:41 complications amlodipine AdvReac Intermediate leg pain Verified 07/16/22 04:41 atenolol AdvReac Intermediate leg pain Verified 07/16/22 04:41 doxazosin AdvReac Intermediate leg pain Verified 07/16/22 04:41 enalapril AdvReac Intermediate leg pain Verified 07/16/22 04:41 glipizide AdvReac Intermediate body aches Verified 07/16/22 04:41 lisinopril AdvReac Intermediate leg pain Verified 07/16/22 04:41 sertraline AdvReac Intermediate leg pain Verified 07/16/22 04:41 simvastatin [From Zocor] AdvReac Intermediate leg pain Verified 07/16/22 04:41 Ijzwjat-TBK-RpO Reductase AdvReac Intermediate leg pains Verified 07/16/22 04:41 Inhibitor [Owhwjno-Tjz-Uxz Reductase Inhibitor] ticlopidine AdvReac Intermediate leg pain Verified 07/16/22 04:41 valsartan AdvReac Intermediate leg pain Verified 07/16/22 04:41 General Stated Complaint: SOB JUANITA: 3 Review of Systems All systems reviewed & are unremarkable except as noted in HPI and below PFSH All Active Problems (Updated 11/02/22 @ 23:12 by Saeid Kent DO) Community acquired pneumonia (Acute) Trochanteric bursitis, left hip (Acute) Left knee DJD (Acute) Depo-Medrol injection: 06/24/2022 Benign paroxysmal positional vertigo (Acute) Sleep apnea (Acute) Mitral regurgitation (Chronic) Diastolic dysfunction (Acute) CKD (chronic kidney disease) (Chronic) History of total right hip replacement (Acute 03/26/22) Diabetes mellitus (Chronic) SVT (supraventricular tachycardia) (Chronic) History of syncope (Chronic) Renal artery stenosis (Chronic) GERD (gastroesophageal reflux disease) (Chronic) 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 coli UTI (Acute) Peripheral vascular angioplasty status with implants and grafts (Acute) Nasal obstruction (Chronic) Hypertrophy of inferior nasal turbinate (Chronic) Tendinitis of long head of biceps brachii of left shoulder (Acute) Left rotator cuff tear (Acute) Aortic stenosis (Chronic) Dyspnea on exertion (Acute) A-fib (Chronic) Acute UTI (Acute) Acute anemia (Acute) Lower GI bleed (Acute) Melena (Acute) Urinary tract infection (Acute) Anemia (Chronic) Hematochezia (Acute) Tubular adenoma of colon (Acute) Hyperplastic colon polyp (Acute) Medical History Breast Cancer Diabetes mellitus Difficult airway Per [facility] anesthesia notes she is a difficult airway. She has had previous intubations with VL grade 1 view. Also easy mask with 90 mm OPA, and successful LMA placement in the past. Dizziness Dyslipidemia Gastro-esophageal reflux disease without esophagitis History of small bowel obstruction Hyperlipidemia Hypertension Hypothyroidism Lymphoma Nasal septal deviation STEVENS (nonalcoholic steatohepatitis) TERRY (obstructive sleep apnea) PVD (peripheral vascular disease) Recurrent UTI (03/15/16) Sensorineural hearing loss of both ears Shortness of breath SVT (supraventricular tachycardia) F/U with Dr. Sweet Syncope Type 2 diabetes mellitus with diabetic peripheral angiopathy without gangrene Surgical History Excision of neck mass History of colonoscopy (~07/2021) History of esophagogastroduodenoscopy (EGD) (~07/2021) History of total left hip replacement Hx of tonsillectomy Nail removal (toe) Partial mastectomy with sentinal node Pt. states this is incorrect, she had a lumpectomy Rotator Cuff Repair Social History Smoking/Tobacco Use Status: Never Smoking risk assessment performed?: Yes Alcohol Intake: never Drug use: Never Substance use type: does not use Do you feel safe at home: Yes Do you feel safe in your relationship?: Yes Female Reproductive History Menstrual Menopause type: natural Exam Narrative Exam Narrative: 1.Const: Well-nourished, Well-developed, appearing stated age 2.Eyes: PERRL, no conjunctival injection, and symmetrical lids. 3.ENT: Atraumatic external nose and ears. Moist MM. Neck: Symmetric, trachea midline, No thyromegaly. 4.CVS: +S1/S2, No murmurs or gallops. Peripheral pulses 2+ and equal in all extremities. Brisk capillary refill in all extremities. 5.RESP: Unlabored respiratory effort. Clear to auscultation bilaterally. No wheezes rales or rhonchi 6.GI: Soft, Nontender/Nondistended, No hepatosplenomegaly. No guarding or rebound. 7.MSK: Normocephalic/Atraumatic, Extremities w/o deformity or ttp No cyanosis or clubbing, Normal movement of all extremities, no pitting edema 8.Skin: Warm, Dry. No rashes or lesions. 9.Neuro: hydrochloric acid operator II-XII grossly intact. Sensation grossly intact, no focal neurologic deficits. 10.Psych: (AAO) x3. Appropriate mood and affect Course Vital Signs Vital signs: Vital Signs Temperature 37.0 C 11/02/22 20:40 Pulse 94 H 11/02/22 20:40 Respiratory Rate 24 11/02/22 20:40 Blood Pressure 196/67 H 11/02/22 20:40 Pulse Oximetry 93 11/02/22 20:40 Temperature 37.0 C 11/02/22 20:40 Temperature Source Oral 11/02/22 20:40 Pulse 94 H 11/02/22 20:40 Respiratory Rate 24 11/02/22 20:40 Blood Pressure 196/67 H 11/02/22 20:40 Blood Pressure Position Sitting 11/02/22 20:40 Pulse Oximetry 93 11/02/22 20:40 Oxygen Delivery Method Room Air 11/02/22 20:40 Oxygen Flow Rate 0 11/02/22 20:40 Pain Level 8 11/02/22 20:40
[2022-11-02 21:07] LABS: Abs Immature Grans 0.02 10^3/uL (0.0-0.06); Absolute Basophil Count 0.03 10^3/uL (0.0-0.2); Absolute Eosinophil Count 0.27 10^3/uL (0.0-0.7); Absolute Lymphocyte Count 1.36 10^3/uL (1.2-3.4); Absolute Monocyte Count 0.68 10^3/uL (0.1-0.8); Absolute Neutrophil Count 3.81 10^3/uL (1.2-6.7); Basophils % 0.5; Eosinophils % 4.4; HCT 35.6 % (36.0-46.0); HGB 11.9 g/dL (11.2-15.7); Immature Grans % 0.3; MCH 32.6 pg (27.0-33.0); MCHC 33.4 % (32.0-36.0); MCV 98 fL (80-95); MPV 10.9 fL (8.0-11.0); Neutrophils % 61.8; Platelet Count 139 10^3/uL (130-400); RBC 3.65 10^6/uL (3.93-5.22); RDW 13.6 % (11.7-14.6); RDW-SD 48.4 fL; WBC 6.17 10^3/uL (4.4-10.8)
[2022-11-02 21:30] LABS: ALT 35 U/L (14-59); AST 34 U/L (15-37); Albumin 3.6 g/dL (3.4-5.0); Alkaline Phosphatase 221 U/L (46-116); Anion Gap 9.1 mmol/L (3-11); BUN 22 mg/dL (7-18); Bilirubin, Total 0.6 mg/dL (0.2-1.0); CO2 27.9 mmol/L (21.0-32.0); CREATININE 1.3 mg/dL (0.55-1.02); Calcium 9.5 mg/dL (8.5-10.1); Chloride 104 mmol/L (98-107); Estimated GFR 41.83 (mL/min/1.73m2); Glucose 154 mg/dL (74-106); NT-proBNP 1556 pg/mL (<300); Potassium 3.9 mmol/L (3.5-5.1); Sodium 141 mmol/L (136-145); Total Protein 7.1 g/dL (6.4-8.2); Troponin I < 50 ng/L (<or=60)
[2022-11-02 21:40] LABS: COVID-19 PCR Negative (Negative); Influenza A PCR Negative (Negative); Influenza B PCR Negative (Negative); RSV PCR Negative (Negative)
[2022-11-02 21:42] LABS: Source Nasopharynx
--- NOTE | 2022-11-02 22:03 | DI.VRAD_ITS ---
PROCEDURE INFORMATION: Exam: XR Chest Exam date and time: 11/02/2022 8:49 PM Age: 77 years old Clinical indication: Cough and shortness of breath and other: Congestion; Patient HX: SOB, cough, congestion, R/O pneumonia TECHNIQUE: Imaging protocol: Radiologic exam of the chest. Views: 1 view. COMPARISON: XR CHEST 1V IN DI DEPT 07/16/2022 5:06 AM FINDINGS: Lungs: Left basilar subsegmental airspace consolidation which may represent infiltrate or atelectasis. Pleural spaces: Bilateral costophrenic angle blunting consistent with small pleural effusions. Heart/Mediastinum: Normal heart size. Bones/joints: Degenerative thoracic spine. IMPRESSION: 1. Mild left basilar airspace consolidation suggesting atelectasis or basilar infiltrate. 2. Small bilateral pleural effusions. 3. Degenerative thoracic spine features. Dictated and Authenticated by: Fran Monahan MD. Ordering:MILADY Breaux MD
[2022-11-02] MEDS: Furosemide 20 MG/2 ML VIAL IVP (22:21)
[2022-11-02] MEDS: DOXYCYCLINE 100 MG in Normal Saline 100 ML IVPB (22:26)
--- NOTE | 2022-11-02 23:32 | NUR.NOTE ---
Nursing Note: Pt ambulated with SPO2 monitoring in hallway in ER. Pt dropped to 89% at the lowest value. Pt denies feeling SOB or trouble breathing. aware.
== END 2022-11-02 23:46 | disposition home or self-care (01) ==
PROVIDERS: Emergency Provider Student in an Organized Health Care Education/Training Program; PCP Family Medicine
DX: J18.9 Pneumonia, unspecified organism (principal); I12.9 Hypertensive chronic kidney disease with stage 1 through stage 4 chronic kidney disease, or unspecified chronic kidney disease; E11.22 Type 2 diabetes mellitus with diabetic chronic kidney disease; Z20.822 Contact with and (suspected) exposure to COVID-19; R79.89 Other specified abnormal findings of blood chemistry; N18.9 Chronic kidney disease, unspecified
CPT/HCPCS: 80053; 87637; 93005; 96365; 96375; 99284; 71045; 83880; 84484; 85025; 93010; J1941

== ENCOUNTER 2022-11-25 01:25 | Outpatient (CLI) | payer OTHER, SELFPAY ==
--- NOTE | 2022-11-25 | DI.US_ITS ---
Exam(s) US ABDOMEN LIMITED EXAM: US ABDOMEN LIMITED CLINICAL HISTORY: HEPATIC CIRRHOSIS,K74.60,SCREENING FOR HCC TECHNIQUE: Ultrasound abdomen performed using standard protocol. COMPARISON: CT CT ABDOMEN PELVIS WO from 10/25/2021 FINDINGS: There is no ascites evident. LIVER: Liver appears somewhat cirrhotic. No discrete focal hepatic lesions. GALLBLADDER/BILIARY: There are no gallstones. No gallbladder wall edema nor pericholecystic fluid. The common hepatic duct isnot dilated, measuring 3-4mm at the level of yumiko hepatis. PANCREAS: There is no evidence of pancreatic mass nor dilatation of the pancreatic duct. RIGHT KIDNEY:No evidence of solid mass, calculus, nor hydronephrosis. No cortical cysts evident. IMPRESSION: 1. No evidence of cholelithiasis nor dilatation of the biliary tree. 2. Cirrhotic appearing liver. This was also evident on prior see CT scan of October 2021. 3. There is no ascites. DATA REPOSITORY:
== END 2022-11-25 01:45 ==
PROVIDERS: PCP Family Medicine; Visit Provider Nurse Practitioner Adult Health
DX: K74.60 Unspecified cirrhosis of liver (principal)
CPT/HCPCS: 76705

== ENCOUNTER 2022-11-29 08:37 | Outpatient (CLI) | payer OTHER, SELFPAY ==
--- NOTE | 2022-11-29 08:30 | DI.RAD_ITS ---
Exam(s) XR HIP RT COMPLETE AP PELVIS EXAM: XR HIP RT COMPLETE AP PELVIS CLINICAL HISTORY: R THR pain. TECHNIQUE: 2D digital imaging was performed. Three images were obtained. AP, lateral and oblique vi ews were obtained. COMPARISON: CR XR HIP RT COMPLETE AP PELVIS from 04/08/2022 FINDINGS: BONES: There are stable post operative changes present. No fracture or dislocation. There is a well corticated osseous density again seen superior to the greater trochanter on the right. This is chron ic. JOINTS: The orthopedic hardware is in good position. No evidence of hardware loosening. SOFT TISSUE: Atherosclerosis is present. IMPRESSION: Stable postoperative changes. DATA REPOSITORY: RADIATION DOSE DELIVERED:
== END 2022-11-29 08:38 | disposition home or self-care (01) ==
LOC: DIORS 08:37
PROVIDERS: PCP Family Medicine; Referring Provider Family Medicine; Visit Provider Student in an Organized Health Care Education/Training Program
DX: M70.61 Trochanteric bursitis, right hip (principal); Z96.641 Presence of right artificial hip joint; M70.62 Trochanteric bursitis, left hip
CPT/HCPCS: 20610; 73502; J1040

== ENCOUNTER 2022-12-05 02:04 | Outpatient (CLI) | payer OTHER, SELFPAY ==
[2022-12-05 11:21] LABS: Absolute Basophil Count 0.05 10^3/uL (0.0-0.2); Absolute Eosinophil Count 0.35 10^3/uL (0.0-0.7); Absolute Monocyte Count 0.77 10^3/uL (0.1-0.8); Absolute Neutrophil Count 5.69 10^3/uL (1.2-6.7); Basophils % 0.6; Eosinophils % 3.9; HCT 38.7 % (36.0-46.0); HGB 12.4 g/dL (11.2-15.7); Immature Grans % 1.1; Lymphocytes % 22.3; MCH 30.8 pg (27.0-33.0); MCV 96 fL (80-95); MPV 10.3 fL (8.0-11.0); Monocytes % 8.6; Neutrophils % 63.5; Platelet Count 184 10^3/uL (130-400); RBC 4.02 10^6/uL (3.93-5.22); RDW 13.1 % (11.7-14.6); RDW-SD 46.6 fL; WBC 8.96 10^3/uL (4.4-10.8)
[2022-12-05 12:04] LABS: ALT 61 U/L (14-59); AST 50 U/L (15-37); Albumin 3.7 g/dL (3.4-5.0); Alkaline Phosphatase 156 U/L (46-116); Anion Gap 4.5 mmol/L (3-11); BUN 38 mg/dL (7-18); Bilirubin, Total 0.7 mg/dL (0.2-1.0); CO2 29.5 mmol/L (21.0-32.0); CREATININE 1.5 mg/dL (0.55-1.02); Calcium 9.5 mg/dL (8.5-10.1); Chloride 107 mmol/L (98-107); Estimated GFR 35.23 (mL/min/1.73m2); Glucose 162 mg/dL (74-106); NT-proBNP 1488 pg/mL (<300); Potassium 5.4 mmol/L (3.5-5.1); Sodium 141 mmol/L (136-145); Total Protein 7.3 g/dL (6.4-8.2)
== END 2022-12-05 02:05 | disposition home or self-care (01) ==
LOC: LBO 02:04
PROVIDERS: PCP Family Medicine; Visit Provider Internal Medicine Cardiovascular Disease
DX: I50.32 Chronic diastolic (congestive) heart failure (principal); I48.0 Paroxysmal atrial fibrillation
CPT/HCPCS: 36415; 80053; 83880; 85025

== ENCOUNTER 2023-01-06 15:47 | Outpatient (CLI) | payer OTHER, SELFPAY ==
[2023-01-06 11:34] LABS: Abs Immature Grans 0.02 10^3/uL (0.0-0.06); Absolute Basophil Count 0.04 10^3/uL (0.0-0.2); Absolute Eosinophil Count 0.18 10^3/uL (0.0-0.7); Absolute Lymphocyte Count 1.12 10^3/uL (1.2-3.4); Absolute Monocyte Count 0.48 10^3/uL (0.1-0.8); Absolute Neutrophil Count 2.66 10^3/uL (1.2-6.7); Basophils % 0.9; HCT 38.9 % (36.0-46.0); HGB 12.4 g/dL (11.2-15.7); Immature Grans % 0.4; Lymphocytes % 24.9; MCH 30.5 pg (27.0-33.0); MCHC 31.9 % (32.0-36.0); MCV 96 fL (80-95); MPV 10.2 fL (8.0-11.0); Monocytes % 10.7; Neutrophils % 59.1; Platelet Count 142 10^3/uL (130-400); RBC 4.07 10^6/uL (3.93-5.22); RDW 13.6 % (11.7-14.6); RDW-SD 48.1 fL
== END 2023-01-06 15:48 | disposition home or self-care (01) ==
LOC: LBO 15:52
PROVIDERS: PCP Family Medicine
DX: I48.19 Other persistent atrial fibrillation (principal)
CPT/HCPCS: 36415; 85025

== ENCOUNTER → 2023-01-27 11:11 | Outpatient (BNVA) | payer OTHER, SELFPAY | PROVIDERS: PCP Family Medicine; Referring Provider Family Medicine; Visit Provider Student in an Organized Health Care Education/Training Program | DX: M48.062 Spinal stenosis, lumbar region with neurogenic claudication (principal); Z96.641 Presence of right artificial hip joint | CPT/HCPCS: 99213 ==

== ENCOUNTER 2023-02-07 08:12 | Inpatient (IN) | payer OTHER, SELFPAY ==
[2023-02-07] VITALS (117 sets, daily range): BP systolic 113–160; BP diastolic 39–74; PULSE 65–96; RESP 13–33; TEMP 36.2–36.3; O2SAT 89–98
--- NOTE | 2023-02-07 08:00 | RT.EKG_ITS ---
APPROVED REPORT Exam: Resting ECG Reason for Exam: chest pain Patient Location: E HR:79 bpm ECG Measurements Heart Rate 79 AXIS AL [id number] P [id number] QRSd 82 QRS 62 QT 399 T 32 QTc 459 Conclusion Atrial fibrillation...? atrial activity Low voltage, precordial leads...precordial leads <1.0mV
--- NOTE | 2023-02-07 08:45 | DI.RAD_ITS ---
Exam(s) XR PORTABLE CHEST AP EXAM: XR PORTABLE CHEST AP CLINICAL HISTORY: chest pain. TECHNIQUE: 2D digital imaging was performed. COMPARISON: CR,XR XR CHEST 1V IN DI DEPT from 07/16/2022 CR,XR XR PORTABLE CHEST AP from 11/02/2022 FINDINGS: Single AP portable view. Mild cardiomegaly. Mediastinum not widened. Pulmonary venous hypertension pattern evident both lung [place]. No airspace pulmonary edema. No lar ge pleural effusions. Previously present infiltrate in left lower lobe appears less evident on the p resent study. IMPRESSION: Pulmonary venous hypertension pattern. Bordering on interstitial pulmonary edema. Recommend nonport able P a and lateral views when clinically possible. DATA REPOSITORY: RADIATION DOSE DELIVERED:
--- NOTE | 2023-02-07 08:50 | ED.GENADUL_ITS ---
Discharge Plan Disposition Patient Disposition: Admit to [facility] Discharge Details Clinical Impression: Unstable angina Admit Date/Time: 02/07/23 12:00 Admit Provider: Jhon Watts Attending Provider: Jhon Watts Primary Care Provider: Jena Mitchell ED Provider: Reginald Salgado Discharge Data Discharge Date/Time-TO BE ENTERED AT DEPARTURE: 02/07/23 16:23 Medical Decision Making 853??77-year-old female with history of hypertension, hyperlipidemia, diabetes, coronary artery disease with plan for stent, atrial fibrillation, on Eliquis, here with chest pain with associated shortness of breath, dizziness and nausea. Patient has no chest pain at this time but notes that she does have pain with any exertion. Patient is hemodynamically stable. She is saturating well in no respiratory distress. Suspect acute coronary syndrome. EKG was reviewed and interpreted by me: Please see report, rate controlled atrial fibrillation at 79 bpm, no STEMI, subtle ST depressions noted laterally V4 to V6. I will check troponin. Consider acute CHF and will check BNP. 1013 -- Labs reviewed: anemia noted, I compared to prior from 01/14 - significant decrease. Patient does note intermittent dark stools. She had history of GI bleed. Will not initiate heparin at this time. Patient reassessed and notes that she had just experienced brief left chest pain described as pressure with radiation to left left. Pain resolved. Concern for unstable angina. I called [facility] [place] transfer center to request transfer. ECG sent, awaiting return call. -- [facility] [place] returned call. I spoke with pearl hand and discussed ED presentation and course. Cardiology team will accept patient in [facility] but no bed available at this time. They will list patient for transfer tomorrow. Plan to hospitalize here until transfer can be completed. I spoke with hospitalist on- call, Dr. Watts, he will admit the patient. Lab Data Lab results reviewed: Yes I reviewed the patient's lab results. Labs: Laboratory Tests Range/Units 02/07/23 02/07/23 02/07/23 08:52 08:52 08:52 WBC (4.4-10.8) 10^3/uL 4.64 RBC (3.93-5.22) 10^6/uL 2.86 L Hgb (11.2-15.7) g/dL 9.0 L Hct (36.0-46.0) % 27.8 L MCV (80-95) fL 97 H MCH (27.0-33.0) pg 31.5 MCHC (32.0-36.0) % 32.4 RDW (11.7-14.6) % 14.8 H Plt Count (130-400) 10^3/uL 148 MPV (8.0-11.0) fL 10.6 Immature Gran % 0.4 Neutrophils % 64.3 Lymphocytes % 19.6 Monocytes % 11.2 Eosinophils % 4.1 Basophils % 0.4 Nucleated RBC % (0.0-0.3) % 0.0 Absolute Neutrophils (1.2-6.7) 10^3/uL 2.98 Absolute Lymphocytes (1.2-3.4) 10^3/uL 0.91 L Absolute Monocytes (0.1-0.8) 10^3/uL 0.52 Absolute Eosinophils (0.0-0.7) 10^3/uL 0.19 Absolute Basophils (0.0-0.2) 10^3/uL 0.02 APTT (21.5-31.9) sec Sodium (136-145) mmol/L 142 Potassium (3.5-5.1) mmol/L 3.8 Chloride (98-107) mmol/L 108 H Carbon Dioxide (21.0-32.0) mmol/L 24.6 Anion Gap (3-11) mmol/L 9.4 BUN (7-18) mg/dL 28 H Creatinine (0.55-1.02) mg/dL 1.3 H Est GFR (CKD-EPI 2020) (mL/min/1.73m2) 41.83 Glucose (74-106) mg/dL 138 H Calcium (8.5-10.1) mg/dL 8.4 L Magnesium (1.8-2.4) mg/dL 2.1 Total Bilirubin (0.2-1.0) mg/dL 0.4 AST (15-37) U/L 33 ALT (14-59) U/L 27 Alkaline Phosphatase (46-116) U/L 162 H Troponin I (<or=60) ng/L < 50 NT-Pro-B Natriuret Pep (<300) pg/mL 1405 H Cancelled Total Protein (6.4-8.2) g/dL 6.1 L Albumin (3.4-5.0) g/dL 3.0 L Range/Units 02/07/23 08:52 WBC (4.4-10.8) 10^3/uL RBC (3.93-5.22) 10^6/uL Hgb (11.2-15.7) g/dL Hct (36.0-46.0) % MCV (80-95) fL MCH (27.0-33.0) pg MCHC (32.0-36.0) % RDW (11.7-14.6) % Plt Count (130-400) 10^3/uL MPV (8.0-11.0) fL Immature Gran % Neutrophils % Lymphocytes % Monocytes % Eosinophils % Basophils % Nucleated RBC % (0.0-0.3) % Absolute Neutrophils (1.2-6.7) 10^3/uL Absolute Lymphocytes (1.2-3.4) 10^3/uL Absolute Monocytes (0.1-0.8) 10^3/uL Absolute Eosinophils (0.0-0.7) 10^3/uL Absolute Basophils (0.0-0.2) 10^3/uL APTT (21.5-31.9) sec 24.4 Sodium (136-145) mmol/L Potassium (3.5-5.1) mmol/L Chloride (98-107) mmol/L Carbon Dioxide (21.0-32.0) mmol/L Anion Gap (3-11) mmol/L BUN (7-18) mg/dL Creatinine (0.55-1.02) mg/dL Est GFR (CKD-EPI 2020) (mL/min/1.73m2) Glucose (74-106) mg/dL Calcium (8.5-10.1) mg/dL Magnesium (1.8-2.4) mg/dL Total Bilirubin (0.2-1.0) mg/dL AST (15-37) U/L ALT (14-59) U/L Alkaline Phosphatase (46-116) U/L Troponin I (<or=60) ng/L NT-Pro-B Natriuret Pep (<300) pg/mL Total Protein (6.4-8.2) g/dL Albumin (3.4-5.0) g/dL HPI General Mode of arrival: ambulatory . Date/Time Provider Initiated Documentation: 02/07/23 08:13 . Limitations to Documentation: no limitations . Information obtained by: patient . HPI Narrative: 77-year-old female with multiple medical problems including history of diabetes, hypertension, hyperlipidemia, GERD, peripheral vascular disease, atrial fibrillation on Eliquis, coronary artery disease noted recently with plan for cardiac stent placement in February, here with chief complaint of chest discomfort. Patient notes chest pain, localized left anterior chest that is been intermitten t since yesterday. She has associated shortness of breath, nausea and dizziness. Pain also seems to radiate into her left arm. Patient has associated headache. She states when she lays down shortness of breath is worse. She does note some lower extremity edema. No calf pain. Related Data Home Medications Medication Instructions Recorded Confirmed diltiazem HCl 300 mg 300 mg PO DAILY 02/29/16 02/07/23 capsule,extended release 24 hr (Cartia XT) escitalopram oxalate 20 mg tablet 20 mg PO DAILY 02/29/16 02/07/23 gabapentin 100 mg capsule 100 mg PO QHS 12/11/20 02/07/23 fluticasone propionate 50 2 spray intranasal DAILY PRN 04/25/21 02/07/23 mcg/actuation nasal spray,suspension (Allergy Relief (fluticasone)) liraglutide 0.6 mg/0.1 mL (18 mg/3 0.6 mg subcut HS 04/25/21 02/07/23 mL) subcutaneous pen injector (Victoza 2-Tray) levothyroxine 125 mcg tablet 150 mcg PO DAILY 06/06/21 02/07/23 ferrous sulfate 325 mg (65 mg 650 mg PO DAILY 06/22/21 01/27/23 iron) tablet (Feosol) meclizine 12.5 mg tablet See Rx Instructions PO DAILY PRN 10/25/21 02/07/23 irbesartan 300 mg tablet 300 mg PO DAILY 02/14/22 02/07/23 acetaminophen 500 mg tablet 500 mg PO Q6H PRN pain #60 tabs 03/26/22 02/07/23 aspirin 81 mg tablet,delayed 81 mg PO DAILY 06/19/22 01/27/23 release (Adult Aspirin Regimen) L. crispatus, gasseri, jensenii, 1 cap PO 07/16/22 01/27/23 rhamnosus 5 billion cell capsule (AZO Complete Feminine Balance) fexofenadine 60 mg tablet 60 mg PO DAILY 07/16/22 01/27/23 magnesium 200 mg tablet 400 mg PO DAILY 07/16/22 01/27/23 apixaban 5 mg tablet (Eliquis) 5 mg PO BID 01/27/23 02/07/23 diphenhydramine HCl 25 mg capsule 25 mg PO QHS PRN 01/27/23 02/07/23 (Benadryl) furosemide 40 mg tablet 40 mg PO BID 02/07/23 02/07/23 rosuvastatin 20 mg tablet 20 mg PO DAILY 02/07/23 02/07/23 Previous Rx's Medication Instructions Recorded acetaminophen 500 mg tablet 500 mg PO Q6H PRN pain #60 tabs 03/26/22 Allergies Allergy/AdvReac Type Severity Reaction Status Date / Time tamoxifen Allergy Intermediate liver Verified 01/27/23 11:24 complications amlodipine AdvReac Intermediate leg pain Verified 01/27/23 11:24 atenolol AdvReac Intermediate leg pain Verified 02/07/23 08:22 doxazosin AdvReac Intermediate leg pain Verified 02/07/23 08:22 enalapril AdvReac Intermediate leg pain Verified 02/07/23 08:22 glipizide AdvReac Intermediate body aches Verified 02/07/23 08:22 lisinopril AdvReac Intermediate leg pain Verified 02/07/23 08:22 sertraline AdvReac Intermediate leg pain Verified 02/07/23 08:22 simvastatin [From Zocor] AdvReac Intermediate leg pain Verified 02/07/23 08:22 Llknsmn-UZI-SkU Reductase AdvReac Intermediate leg pains Verified 02/07/23 08:22 Inhibitor [Hgxbbbh-Lbw-Usp Reductase Inhibitor] ticlopidine AdvReac Intermediate leg pain Verified 02/07/23 08:22 valsartan AdvReac Intermediate leg pain Verified 02/07/23 08:22 General Stated Complaint: Chest Pain JUANITA: 2 Review of Systems All systems reviewed & are unremarkable except as noted in HPI and below Constitutional Constitutional: Denies fever(s) Respiratory Respiratory: Reports as per HPI PFSH All Active Problems (Updated 02/13/23 @ 20:30 by Reginald Salgado MD) Unstable angina (Acute) Dyspnea (Acute) Angina at rest (Acute) Coronary atherosclerosis (Acute) Spinal stenosis (Acute) Trochanteric bursitis, right hip (Acute) DEPO MEDROL 11/29/22 Trochanteric bursitis, left hip (Acute) DEPO MEDROL 11/29/22 Left knee DJD (Acute) Depo-Medrol injection: 06/24/2022 Benign paroxysmal positional vertigo (Acute) Sleep apnea (Acute) Mitral regurgitation (Chronic) Diastolic dysfunction (Acute) CKD (chronic kidney disease) (Chronic) History of total right hip replacement (Acute 03/26/22) Diabetes mellitus (Chronic) SVT (supraventricular tachycardia) (Chronic) History of syncope (Chronic) Renal artery stenosis (Chronic) GERD (gastroesophageal reflux disease) (Chronic) 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 coli UTI (Acute) Peripheral vascular angioplasty status with implants and grafts (Acute) Nasal obstruction (Chronic) Hypertrophy of inferior nasal turbinate (Chronic) Tendinitis of long head of biceps brachii of left shoulder (Acute) Left rotator cuff tear (Acute) Aortic stenosis (Chronic) Dyspnea on exertion (Acute) A-fib (Chronic) Acute UTI (Acute) Acute anemia (Acute) Lower GI bleed (Acute) Melena (Acute) Urinary tract infection (Acute) Anemia (Chronic) Hematochezia (Acute) Tubular adenoma of colon (Acute) Hyperplastic colon polyp (Acute) Medical History Breast Cancer Diabetes mellitus Difficult airway Per [facility] [place] anesthesia notes she is a difficult airway. She has had previous intubations with VL grade 1 view. Also easy mask with 90 mm OPA, and successful LMA placement in the past. Dizziness Dyslipidemia Gastro-esophageal reflux disease without esophagitis History of small bowel obstruction Hyperlipidemia Hypertension Hypothyroidism Lymphoma Nasal septal deviation STEVENS (nonalcoholic steatohepatitis) TERRY (obstructive sleep apnea) PVD (peripheral vascular disease) Recurrent UTI (03/15/16) Sensorineural hearing loss of both ears Shortness of breath SVT (supraventricular tachycardia) F/U with Dr. Sweet Syncope Type 2 diabetes mellitus with diabetic peripheral angiopathy without gangrene Surgical History Excision of neck mass History of colonoscopy (~07/2021) History of esophagogastroduodenoscopy (EGD) (~07/2021) History of total left hip replacement Hx of tonsillectomy Nail removal (toe) Partial mastectomy with sentinal node Pt. states this is incorrect, she had a lumpectomy Rotator Cuff Repair Social History Smoking/Tobacco Use Status: Never Smoking risk assessment performed?: Yes Alcohol Intake: never Drug use: Never Substance use type: does not use Do you feel safe at home: Yes Do you feel safe in your relationship?: Yes Female Reproductive History Menstrual Menopause type: natural Exam Const General: cooperative and no acute distress HENMT Mouth: moist mucous membranes Eyes Conjunctivae: normal conjunctivae Sclera: normal sclerae Neck Neck: trachea midline and supple Resp Auscultation: clear to auscultation bilaterally, no rales, no rhonchi and no wheezes Cardio Rate: regular rate and not tachycardic Rhythm: abnormal rhythm irregularly irregular Heart Sounds: murmur systolic III/ GI Palpation: soft, not firm, no guarding, no masses, not rigid and nontender Skin General skin exam: no rashes or lesions noted Neuro General: patient alert, patient awake and tone normal Extrem General: no calf tenderness and edema Laterality: bilateral Psych Appearance: grossly normal Mental Status: mental status grossly normal Course Vital Signs Vital signs: Vital Signs Temperature 36.3 C L 02/07/23 08:15 Pulse 94 H 02/07/23 08:15 Respiratory Rate 20 02/07/23 08:15 Blood Pressure 159/60 H 02/07/23 08:15 Pulse Oximetry 96 02/07/23 08:15 Temperature 36.3 C L 02/07/23 08:15 Temperature Source Skin 02/07/23 08:15 Pulse 94 H 02/07/23 08:15 Respiratory Rate 20 02/07/23 08:15 Blood Pressure 159/60 H 02/07/23 08:15 Blood Pressure Position Supine 02/07/23 08:15 Pulse Oximetry 96 02/07/23 08:15 Oxygen Delivery Method Room Air 02/07/23 08:15 Oxygen Flow Rate 0 02/07/23 08:15 Pain Level 5 02/07/23 08:15
[2023-02-07 09:01] LABS: Abs Immature Grans 0.02 10^3/uL (0.0-0.06); Absolute Basophil Count 0.02 10^3/uL (0.0-0.2); Absolute Eosinophil Count 0.19 10^3/uL (0.0-0.7); Absolute Lymphocyte Count 0.91 10^3/uL (1.2-3.4); Absolute Monocyte Count 0.52 10^3/uL (0.1-0.8); Absolute Neutrophil Count 2.98 10^3/uL (1.2-6.7); Basophils % 0.4; Eosinophils % 4.1; HCT 27.8 % (36.0-46.0); Immature Grans % 0.4; Lymphocytes % 19.6; MCH 31.5 pg (27.0-33.0); MCHC 32.4 % (32.0-36.0); MCV 97 fL (80-95); MPV 10.6 fL (8.0-11.0); Monocytes % 11.2; Neutrophils % 64.3; Platelet Count 148 10^3/uL (130-400); RBC 2.86 10^6/uL (3.93-5.22); RDW 14.8 % (11.7-14.6); RDW-SD 52.3 fL; WBC 4.64 10^3/uL (4.4-10.8)
[2023-02-07 09:14] LABS: PTT Activated 24.4 sec (21.5-31.9)
[2023-02-07 09:21] LABS: ALT 27 U/L (14-59); AST 33 U/L (15-37); Alkaline Phosphatase 162 U/L (46-116); Anion Gap 9.4 mmol/L (3-11); BUN 28 mg/dL (7-18); Bilirubin, Total 0.4 mg/dL (0.2-1.0); CO2 24.6 mmol/L (21.0-32.0); CREATININE 1.3 mg/dL (0.55-1.02); Calcium 8.4 mg/dL (8.5-10.1); Chloride 108 mmol/L (98-107); Estimated GFR 41.83 (mL/min/1.73m2); Glucose 138 mg/dL (74-106); Magnesium 2.1 mg/dL (1.8-2.4); Potassium 3.8 mmol/L (3.5-5.1); Sodium 142 mmol/L (136-145); Total Protein 6.1 g/dL (6.4-8.2); Troponin I < 50 ng/L (<or=60)
[2023-02-07 09:40] LABS: NT-proBNP 1405 pg/mL (<300)
--- NOTE | 2023-02-07 12:18 | HPE_ITS ---
Date of service: 02/07/23 Time of Service: 12:18 [facility] All Active Problems Spinal stenosis (Acute) Trochanteric bursitis, right hip (Acute) DEPO MEDROL 11/29/22 Trochanteric bursitis, left hip (Acute) DEPO MEDROL 11/29/22 Left knee DJD (Acute) Depo-Medrol injection: 06/24/2022 Benign paroxysmal positional vertigo (Acute) Sleep apnea (Acute) Mitral regurgitation (Chronic) Diastolic dysfunction (Acute) CKD (chronic kidney disease) (Chronic) History of total right hip replacement (Acute 03/26/22) Diabetes mellitus (Chronic) SVT (supraventricular tachycardia) (Chronic) History of syncope (Chronic) Renal artery stenosis (Chronic) GERD (gastroesophageal reflux disease) (Chronic) 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 coli UTI (Acute) Peripheral vascular angioplasty status with implants and grafts (Acute) Nasal obstruction (Chronic) Hypertrophy of inferior nasal turbinate (Chronic) Tendinitis of long head of biceps brachii of left shoulder (Acute) Left rotator cuff tear (Acute) Aortic stenosis (Chronic) Dyspnea on exertion (Acute) A-fib (Chronic) Acute UTI (Acute) Acute anemia (Acute) Lower GI bleed (Acute) Melena (Acute) Urinary tract infection (Acute) Anemia (Chronic) Hematochezia (Acute) Tubular adenoma of colon (Acute) Hyperplastic colon polyp (Acute) Medical History Breast Cancer Diabetes mellitus Difficult airway [place] [facility] [place] she is a difficult airway. She has had previous intubations with VL grade 1 view. Also easy mask with 90 mm OPA, and successful LMA placement in the past. Dizziness Dyslipidemia Gastro-esophageal reflux disease without esophagitis History of small bowel obstruction Hyperlipidemia Hypertension Hypothyroidism Lymphoma Nasal septal deviation STEVENS (nonalcoholic steatohepatitis) TERRY (obstructive sleep apnea) PVD (peripheral vascular disease) Recurrent UTI (03/15/16) Sensorineural hearing loss of both ears Shortness of breath SVT (supraventricular tachycardia) F/U with Dr. Sweet Syncope Type 2 diabetes mellitus with diabetic peripheral angiopathy without gangrene Surgical History Excision of neck mass History of colonoscopy (~07/2021) History of esophagogastroduodenoscopy (EGD) (~07/2021) History of total left hip replacement Hx of tonsillectomy Nail removal (toe) Partial mastectomy with sentinal node Pt. states this is incorrect, she had a lumpectomy Rotator Cuff Repair Social History Smoking/Tobacco Use Status: Never Smoking risk assessment performed?: Yes Alcohol Intake: never Drug use: Never Substance use type: does not use Do you feel safe at home: Yes Do you feel safe in your relationship?: Yes Female Reproductive History Menstrual Menopause type: natural Meds Allergies and Home Medications Allergies Allergy/AdvReac Type Severity Reaction Status Date / Time tamoxifen Allergy Intermediate liver Verified 01/27/23 11:24 complications amlodipine AdvReac Intermediate leg pain Verified 01/27/23 11:24 atenolol AdvReac Intermediate leg pain Verified 02/07/23 08:22 doxazosin AdvReac Intermediate leg pain Verified 02/07/23 08:22 enalapril AdvReac Intermediate leg pain Verified 02/07/23 08:22 glipizide AdvReac Intermediate body aches Verified 02/07/23 08:22 lisinopril AdvReac Intermediate leg pain Verified 02/07/23 08:22 sertraline AdvReac Intermediate leg pain Verified 02/07/23 08:22 simvastatin [From Zocor] AdvReac Intermediate leg pain Verified 02/07/23 08:22 Uujwnke-BJA-CjP Reductase AdvReac Intermediate leg pains Verified 02/07/23 08:22 Inhibitor [Aukybtz-Afv-Pxd Reductase Inhibitor] ticlopidine AdvReac Intermediate leg pain Verified 02/07/23 08:22 valsartan AdvReac Intermediate leg pain Verified 02/07/23 08:22 Home Medications Medication Instructions Recorded Confirmed Type diltiazem HCl 300 mg 300 mg PO DAILY 02/29/16 02/07/23 History capsule,extended release 24 hr (Cartia XT) escitalopram oxalate 20 mg tablet 20 mg PO DAILY 02/29/16 02/07/23 History gabapentin 100 mg capsule 100 mg PO QHS 12/11/20 02/07/23 History fluticasone propionate 50 2 spray intranasal DAILY PRN 04/25/21 02/07/23 History mcg/actuation nasal spray,suspension (Allergy Relief (fluticasone)) liraglutide 0.6 mg/0.1 mL (18 mg/3 0.6 mg subcut HS 04/25/21 02/07/23 History mL) subcutaneous pen injector (Victoza 2-Tray) levothyroxine 125 mcg tablet 150 mcg PO DAILY 06/06/21 02/07/23 History ferrous sulfate 325 mg (65 mg 650 mg PO DAILY 06/22/21 01/27/23 History iron) tablet (Feosol) meclizine 12.5 mg tablet See Rx Instructions PO DAILY PRN 10/25/21 02/07/23 History irbesartan 300 mg tablet 300 mg PO DAILY 02/14/22 02/07/23 History acetaminophen 500 mg tablet 500 mg PO Q6H PRN pain #60 tabs 03/26/22 02/07/23 Rx aspirin 81 mg tablet,delayed 81 mg PO DAILY 06/19/22 01/27/23 History release (Adult Aspirin Regimen) L. crispatus, gasseri, jensenii, 1 cap PO 07/16/22 01/27/23 History rhamnosus 5 billion cell capsule (AZO Complete Feminine Balance) fexofenadine 60 mg tablet 60 mg PO DAILY 07/16/22 01/27/23 History magnesium 200 mg tablet 400 mg PO DAILY 07/16/22 01/27/23 History apixaban 5 mg tablet (Eliquis) 5 mg PO BID 01/27/23 02/07/23 History diphenhydramine HCl 25 mg capsule 25 mg PO QHS PRN 01/27/23 02/07/23 History (Benadryl) furosemide 40 mg tablet 40 mg PO BID 02/07/23 02/07/23 History rosuvastatin 20 mg tablet 20 mg PO DAILY 02/07/23 02/07/23 History Results Labs 02/07/23 08:52 02/07/23 08:52 Labs: Laboratory Results - last 24 hr 02/07/23 02/07/23 02/07/23 08:52 08:52 08:52 WBC 4.64 RBC 2.86 L Hgb 9.0 L Hct 27.8 L MCV 97 H MCH 31.5 MCHC 32.4 RDW 14.8 H Plt Count 148 MPV 10.6 Immature Gran % 0.4 Neutrophils % 64.3 Lymphocytes % 19.6 Monocytes % 11.2 Eosinophils % 4.1 Basophils % 0.4 Nucleated RBC % 0.0 Absolute Neutrophils 2.98 Absolute Lymphocytes 0.91 L Absolute Monocytes 0.52 Absolute Eosinophils 0.19 Absolute Basophils 0.02 APTT Sodium 142 Potassium 3.8 Chloride 108 H Carbon Dioxide 24.6 Anion Gap 9.4 BUN 28 H Creatinine 1.3 H Est GFR (CKD-EPI 2020) 41.83 Glucose 138 H Calcium 8.4 L Magnesium 2.1 Total Bilirubin 0.4 AST 33 ALT 27 Alkaline Phosphatase 162 H Troponin I < 50 NT-Pro-B Natriuret Pep 1405 H Cancelled Total Protein 6.1 L Albumin 3.0 L Crossmatch 02/07/23 02/07/23 08:52 11:28 WBC RBC Hgb Hct MCV MCH MCHC RDW Plt Count MPV Immature Gran % Neutrophils % Lymphocytes % Monocytes % Eosinophils % Basophils % Nucleated RBC % Absolute Neutrophils Absolute Lymphocytes Absolute Monocytes Absolute Eosinophils Absolute Basophils APTT 24.4 Sodium Potassium Chloride Carbon Dioxide Anion Gap BUN Creatinine Est GFR (CKD-EPI 2020) Glucose Calcium Magnesium Total Bilirubin AST ALT Alkaline Phosphatase Troponin I NT-Pro-B Natriuret Pep Total Protein Albumin Crossmatch See Detail Last Vital Signs Temp 36.3 C L 02/07/23 08:15 Pulse 65 02/07/23 11:31 Resp 19 02/07/23 11:43 BP 148/51 H 02/07/23 11:31 Pulse Ox 94 02/07/23 11:43
[2023-02-07 12:34] LABS: Troponin I < 50 ng/L (<or=60)
[2023-02-07 15:10] LABS: HCT 28.7 % (36.0-46.0); HGB 9.2 g/dL (11.2-15.7)
[2023-02-07 15:27] LABS: Troponin I < 50 ng/L (<or=60)
--- NOTE | 2023-02-07 16:24 | DSE_ITS ---
Date of service: 02/07/23 Time of Service: 16:24 DS: Diagnosis Discharge Diagnosis (1) Dyspnea: Status: Acute Asessment and Plan: patient presented w/ worsening dyspnea not associated w/ acute CHF nor hypoxemia but associated w/ chest tightness. Patient was ruled out for acute CA by serial troponin butr was found to be anemic w/ Hb of 9 gm. Patient reported recent melena stools. However she was not acutely bleeding upon presentation. Patient has been on Eliquis for atrial fibrillation and had a known atrial thrombus and was awaiting a Watchman procedure which had originally been planned for December when QUIANA demonstrated the GABY thrombus. Cardiac cath at that time was done d/t abnormal stress MPI and demonstrated multivessel disease and she says that she was rescheduled for her Watchman procedure and caridiac stenting for February of this year. However w/ the presentation of worsening angina and anemia she was admitted pending transfer to [facility]. Dr. Reginald Salgado called cardiology at [facility] who accepted her for transfer pending bed availablity. Patient was admitted and in less than hour after admitted to the medical floor [facility] called to indicate that they have a bed. (2) Angina at rest: Status: Acute (3) A-fib: Status: Chronic (4) Anemia: Status: Chronic (5) Melena: Status: Acute (6) Coronary atherosclerosis: Status: Acute (7) Diabetes mellitus: (8) Dyslipidemia: Discharge Plan Disposition Patient Disposition: Transfer-Acute Inpatient Care Specific Acute Inpt Facility: [facility] Condition: Stable Discharge Details Reason For Visit: Anemia,Angina,GI bleeding Admit Date/Time: 02/07/23 12:00 Admit Provider: Jhon Watts Attending Provider: Jhon Watts Primary Care Provider: Jena Mitchell [facility] Course Hospital Course: Patient has hx of known chronic atrial fibrillation, anticoagulated w/ apixaban and on diltiazem XT for rate control and she has known GABY thrombus and CAD diagnosed in December at [facility] by cardiac cath. Patient also has hx of GI bleeding that occurred when she was previously put on anticoagulants. Last upper and lower endoscopy performed here at [facility] was 08/15/[address] Potts (gastritis and colon w/ diverticulosis w/ multiple polyps bx tubular adenoma). Patient now presents w/ anginal quality pain and dyspnea that began yesterday that has been intermittent. Dyspnea last night caused her to have to sit up to breath. She says that she could not tolerate her CPAP (she has TERRY). Patient also notes she has been having some dark black colored stools but no bright red blood per rectum and no hematemesis and no abdominal pains. On arrival to the ED, her CP had resolved. EKG demonstrated afib at controlled rate of 79 bpm w/ some mild non-specific ST-T changes laterally. Serial troponin I was negative x 3 sets over 6hr. Hb was low at 9.0 gm (previous level was normal at 12.4 gm on 01/06/23. Repeat hemoglobin 6hr after arrival was unchanged at 9.2 gm. Patient is currently pain free. Dr. Reginald Salgado called [facility] cardiology and got acceptance for her transfer upon condition of bed availability. As no bed was immediately available she was admitted to [facility] for blood transfusion and monitoring of her angina and initiation of nitrates as well as continuation of her other meds except the holding of her Eliquis. Less than an hour after admission to medical /surgical floor, [facility] called to indicate they have a bed and can take the patient today. Patient was discharged in stable and improved condition. NO transfusion was given as the patient antibody screen came back positive on a díaz reactive antibody screen which will require workup by [facility]. Patient reports that this happened to her in the past. I spoke w/ Dr. Amaro, pathologist for [facility], he indicated that the specimen requires antibody testing at specialty lab such as [facility]. 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 Home Meds and New Rx's Prescriptions: No Action irbesartan 300 mg tablet 300 mg PO DAILY gabapentin 100 mg capsule 100 mg PO QHS ferrous sulfate [Feosol] 325 mg (65 mg iron) tablet 650 mg PO DAILY Patient Comments: pt states not taking Eliquis 5 mg tablet 5 mg PO BID diphenhydramine HCl [Benadryl] 25 mg capsule 25 mg PO QHS PRN diltiazem HCl [Cartia XT] 300 MG capsule,extended release 24hr 300 mg PO DAILY escitalopram oxalate 20 MG tablet 20 mg PO DAILY Victoza 2-Tray 0.6 mg/0.1 mL (18 mg/3 mL) pen injector 0.6 mg subcut HS fluticasone propionate [Allergy Relief (fluticasone)] 50 mcg/actuation spray,suspension 2 spray intranasal DAILY PRN Rx Instructions: administer into each nostril aspirin [Adult Aspirin Regimen] 81 mg tablet,delayed release (DR/EC) 81 mg PO DAILY Patient Comments: pt states not taking levothyroxine 125 mcg Tablet 150 mcg PO DAILY meclizine 12.5 mg tablet See Rx Instructions PO DAILY PRN Rx Instructions: take 1-2 tablets every 8 hours as needed for nausea. fexofenadine 60 mg Tablet 60 mg PO DAILY Patient Comments: pt states not taking magnesium 200 mg Tablet 400 mg PO DAILY Patient Comments: pt states not taking AZO Complete Feminine Balance 5 billion cell Capsule 1 cap PO Patient Comments: pt states not taking furosemide 40 mg tablet 40 mg PO BID Patient Comments: Take 1 tablet by mouth twice a day am and 2 pm rosuvastatin 20 mg tablet 20 mg PO DAILY Patient Comments: TAKE ONE TABLET BY MOUTH EVERY DAY acetaminophen 500 mg tablet 500 mg PO Q6H PRN (Reason: pain) Qty: 60 2RF Discharge Instructions Instructions: Angina (DC), Gastrointestinal Bleeding (DC) Activity:: Activity as Tolerated Equipment/Supplies:: No Equipment Needed Diet:: Carb Counting Discharge Orders Discharge Orders: Discharge Order (Routine); Ordered 02/07/23 Ordered By: Jhon Watts DS: Summary Time Spent with Patient providing and/or coordinating discharge services: Less than 30 minutes Specific discharge activities: Interview/exam of patient; review of discharge instructions, completion of prescriptions/discharge instructions; discussion w/ nursing and CM; documentation of hospital visit Status at Discharge Functional status at discharge: independent ambulation Overall status at discharge: patient is back to baseline Mental Status: mental status grossly normal Speech and Movement: speech and movement normal Mood: congruent mood Affect: normal affect Exam Narrative Exam Narrative: Mrs. Vega is alert oriented lying in bed in no acute distress. HEENT is unremarkable neck is obese no overt JVD carotid pulses irregularly irregular and controlled rate Lungs are clear to auscultation anteriorly and posteriorly Heart is irregularly irregular harsh systolic murmur along the aortic outflow tract consistent with either aortic stenosis or aortic sclerosis. I did not hear any transmitted murmurs into the base of her carotids., She has a softer holosystolic murmur over the apex consistent with mitral regurgitation. Abdomen soft nontender normal bowel sounds no bruits no organomegaly Lower extremities without pitting edema or cyanosis Neurologic exam grossly intact no focal motor deficits no focal cranial nerve deficits. Psych Mental Status: mental status grossly normal Speech and Movement: speech and movement normal Mood: congruent mood Affect: normal affect DS: Data Vitals/I&O Vitals and I&O: Vital Signs Temperature 36.2 C L 02/07/23 13:30 Temperature Source Skin 02/07/23 08:15 Pulse 96 H 02/07/23 13:30 Pulse Rhythm Irregular 02/07/23 14:00 Pulse 76 02/07/23 09:31 Respiratory Rate 20 02/07/23 13:30 Respiratory Effort Normal 02/07/23 14:00 Respiratory Depth Normal 02/07/23 14:00 Respiratory Pattern Normal 02/07/23 14:00 Blood Pressure 160/74 H 02/07/23 13:30 Blood Pressure Mean 78 02/07/23 09:31 Blood Pressure Position Supine 02/07/23 08:15 Pulse Oximetry 95 02/07/23 13:30 Oxygen Delivery Method Room Air 02/07/23 13:30 Oxygen Flow Rate 0 02/07/23 13:30 Pain Level 0 02/07/23 13:30 Intake & Output 02/06/23 02/07/23 02/07/23 23:59 11:59 23:59 Weight 104.326 kg Data Completed and Pending Labs on day of discharge: Labs from last 24 hours 02/07/23 02/07/23 02/07/23 21:00 15:00 15:00 WBC RBC Hgb Pending 9.2 L Hct Pending 28.7 L MCV MCH MCHC RDW Plt Count MPV Immature Gran % Neutrophils % Lymphocytes % Monocytes % Eosinophils % Basophils % Nucleated RBC % Absolute Neutrophils Absolute Lymphocytes Absolute Monocytes Absolute Eosinophils Absolute Basophils APTT Sodium Potassium Chloride Carbon Dioxide Anion Gap BUN Creatinine Est GFR (CKD-EPI 2020) Glucose Calcium Magnesium Total Bilirubin AST ALT Alkaline Phosphatase Troponin I < 50 NT-Pro-B Natriuret Pep Total Protein Albumin Blood Type (Referred) Patient ABO/Rh Blood Group (off-site) Antibody Screen Antibody Identification Antibody ID Referred Direct Antiglob Test Crossmatch 02/07/23 02/07/23 02/07/23 13:30 12:00 11:28 WBC RBC Hgb Hct MCV MCH MCHC RDW Plt Count MPV Immature Gran % Neutrophils % Lymphocytes % Monocytes % Eosinophils % Basophils % Nucleated RBC % Absolute Neutrophils Absolute Lymphocytes Absolute Monocytes Absolute Eosinophils Absolute Basophils APTT Sodium Potassium Chloride Carbon Dioxide Anion Gap BUN Creatinine Est GFR (CKD-EPI 2020) Glucose Calcium Magnesium Total Bilirubin AST ALT Alkaline Phosphatase Troponin I < 50 NT-Pro-B Natriuret Pep Total Protein Albumin Blood Type (Referred) Pending Patient ABO/Rh A Positive Blood Group (off-site) Pending Antibody Screen POSITIVE Antibody Identification Panagglutinin Antibody ID Referred Pending Direct Antiglob Test Pending Crossmatch See Detail 02/07/23 02/07/23 02/07/23 08:52 08:52 08:52 WBC 4.64 RBC 2.86 L Hgb 9.0 L Hct 27.8 L MCV 97 H MCH 31.5 MCHC 32.4 RDW 14.8 H Plt Count 148 MPV 10.6 Immature Gran % 0.4 Neutrophils % 64.3 Lymphocytes % 19.6 Monocytes % 11.2 Eosinophils % 4.1 Basophils % 0.4 Nucleated RBC % 0.0 Absolute Neutrophils 2.98 Absolute Lymphocytes 0.91 L Absolute Monocytes 0.52 Absolute Eosinophils 0.19 Absolute Basophils 0.02 APTT 24.4 Sodium Potassium Chloride Carbon Dioxide Anion Gap BUN Creatinine Est GFR (CKD-EPI 2020) Glucose Calcium Magnesium Total Bilirubin AST ALT Alkaline Phosphatase Troponin I NT-Pro-B Natriuret Pep Cancelled Total Protein Albumin Blood Type (Referred) Patient ABO/Rh Blood Group (off-site) Antibody Screen Antibody Identification Antibody ID Referred Direct Antiglob Test Crossmatch 02/07/23 08:52 WBC RBC Hgb Hct MCV MCH MCHC RDW Plt Count MPV Immature Gran % Neutrophils % Lymphocytes % Monocytes % Eosinophils % Basophils % Nucleated RBC % Absolute Neutrophils Absolute Lymphocytes Absolute Monocytes Absolute Eosinophils Absolute Basophils APTT Sodium 142 Potassium 3.8 Chloride 108 H Carbon Dioxide 24.6 Anion Gap 9.4 BUN 28 H Creatinine 1.3 H Est GFR (CKD-EPI 2020) 41.83 Glucose 138 H Calcium 8.4 L Magnesium 2.1 Total Bilirubin 0.4 AST 33 ALT 27 Alkaline Phosphatase 162 H Troponin I < 50 NT-Pro-B Natriuret Pep 1405 H Total Protein 6.1 L Albumin 3.0 L Blood Type (Referred) Patient ABO/Rh Blood Group (off-site) Antibody Screen Antibody Identification Antibody ID Referred Direct Antiglob Test Crossmatch [facility] All Active Problems (Updated 02/07/23 @ 16:27 by Jhon Watts MD) Dyspnea (Acute) Angina at rest (Acute) Coronary atherosclerosis (Acute) Spinal stenosis (Acute) Trochanteric bursitis, right hip (Acute) DEPO MEDROL 11/29/22 Trochanteric bursitis, left hip (Acute) DEPO MEDROL 11/29/22 Left knee DJD (Acute) Depo-Medrol injection: 06/24/2022 Benign paroxysmal positional vertigo (Acute) Sleep apnea (Acute) Mitral regurgitation (Chronic) Diastolic dysfunction (Acute) CKD (chronic kidney disease) (Chronic) History of total right hip replacement (Acute 03/26/22) Diabetes mellitus (Chronic) SVT (supraventricular tachycardia) (Chronic) History of syncope (Chronic) Renal artery stenosis (Chronic) GERD (gastroesophageal reflux disease) (Chronic) 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 coli UTI (Acute) Peripheral vascular angioplasty status with implants and grafts (Acute) Nasal obstruction (Chronic) Hypertrophy of inferior nasal turbinate (Chronic) Tendinitis of long head of biceps brachii of left shoulder (Acute) Left rotator cuff tear (Acute) Aortic stenosis (Chronic) Dyspnea on exertion (Acute) A-fib (Chronic) Acute UTI (Acute) Acute anemia (Acute) Lower GI bleed (Acute) Melena (Acute) Urinary tract infection (Acute) Anemia (Chronic) Hematochezia (Acute) Tubular adenoma of colon (Acute) Hyperplastic colon polyp (Acute) Medical History Breast Cancer Diabetes mellitus Difficult airway Per [facility] anesthesia notes she is a difficult airway. She has had previous intubations with VL grade 1 view. Also easy mask with 90 mm OPA, and successful LMA placement in the past. Dizziness Dyslipidemia Gastro-esophageal reflux disease without esophagitis History of small bowel obstruction Hyperlipidemia Hypertension Hypothyroidism Lymphoma Nasal septal deviation STEVENS (nonalcoholic steatohepatitis) TERRY (obstructive sleep apnea) PVD (peripheral vascular disease) Recurrent UTI (03/15/16) Sensorineural hearing loss of both ears Shortness of breath SVT (supraventricular tachycardia) F/U with Dr. Sweet Syncope Type 2 diabetes mellitus with diabetic peripheral angiopathy without gangrene Surgical History Excision of neck mass History of colonoscopy (~07/2021) History of esophagogastroduodenoscopy (EGD) (~07/2021) History of total left hip replacement Hx of tonsillectomy Nail removal (toe) Partial mastectomy with sentinal node Pt. states this is incorrect, she had a lumpectomy Rotator Cuff Repair Social History Smoking/Tobacco Use Status: Never Smoking risk assessment performed?: Yes Alcohol Intake: never Drug use: Never Substance use type: does not use Do you feel safe at home: Yes Do you feel safe in your relationship?: Yes Female Reproductive History Menstrual Menopause type: natural Time Spent with Patient Time Spent with Patient: <45 minutes Time was spent: preparing to see the patient(eg.review tests), obtaining and/or reviewing separately otained hiistory, ordering medications,tests, procedures, referring, communicating with other health childcare center administrator, indepentently interpreting results, counseling the patient and care coordination
== END 2023-02-07 17:47 | disposition short-term general hospital (02) | DRG 303 ==
LOC: ER 12:06 → MS 13:20
PROVIDERS: Admitting Provider Internal Medicine; Emergency Provider Student in an Organized Health Care Education/Training Program; PCP Family Medicine; Visit Provider Internal Medicine
DX: I25.119 Atherosclerotic heart disease of native coronary artery with unspecified angina pectoris (principal); K92.1 Melena; N17.9 Acute kidney failure, unspecified; I47.1 Supraventricular tachycardia; R06.00 Dyspnea, unspecified; I51.3 Intracardiac thrombosis, not elsewhere classified; D64.9 Anemia, unspecified; Z79.01 Long term (current) use of anticoagulants; I48.91 Unspecified atrial fibrillation; E78.5 Hyperlipidemia, unspecified; R42 Dizziness and giddiness; R11.0 Nausea; I73.9 Peripheral vascular disease, unspecified; K21.9 Gastro-esophageal reflux disease without esophagitis; M48.00 Spinal stenosis, site unspecified; M70.62 Trochanteric bursitis, left hip; M17.12 Unilateral primary osteoarthritis, left knee; K74.60 Unspecified cirrhosis of liver; I08.0 Rheumatic disorders of both mitral and aortic valves; Z85.3 Personal history of malignant neoplasm of breast; G47.33 Obstructive sleep apnea (adult) (pediatric); E11.22 Type 2 diabetes mellitus with diabetic chronic kidney disease; I12.9 Hypertensive chronic kidney disease with stage 1 through stage 4 chronic kidney disease, or unspecified chronic kidney disease; E11.51 Type 2 diabetes mellitus with diabetic peripheral angiopathy without gangrene; Z79.85 Long-term (current) use of injectable non-insulin antidiabetic drugs
CPT/HCPCS: 36415; 80053; 86850; 86900; 86901; 86920; 93005; 71045; 83735; 83880; 84484; 85014; 85018; 85025; 85730; 86860; 86870; 86880; 93010; 99235

== ENCOUNTER 2023-02-17 17:07 | Emergency (ER) | payer OTHER, SELFPAY ==
[2023-02-17] VITALS (51 sets, daily range): BP systolic 104; BP diastolic 56; PULSE 78; RESP 12–30; TEMP 36.4; O2SAT 97
--- NOTE | 2023-02-17 17:00 | RT.EKG_ITS ---
APPROVED REPORT Exam: Resting ECG Reason for Exam: syncopal Patient Location: E HR:84 bpm ECG Measurements Heart Rate 84 AXIS [place] [id number] P [id number] QRSd 83 QRS 44 QT 389 T 43 QTc 461 Conclusion Atrial fibrillation...? atrial activity Low voltage, precordial leads...precordial leads <1.0mV
[2023-02-17] MEDS: ACETAMINOPHEN 1,000 MG/100 ML BTL 400 MG IVPB (17:40)
--- NOTE | 2023-02-17 18:00 | DI.CT_ITS ---
Exam(s) CT HEAD CERVICAL SPINE WO EXAM: CT HEAD CERVICAL SPINE WO CLINICAL HISTORY: fall. TECHNIQUE: Imaging Protocol: Axial computed tomography images with coronal and sagittal reformatted images were created and reviewed COMPARISON: CT CT NECK W from 10/30/2021 FINDINGS: Head CT Ventricles and Extra axial spaces: Normal in size and morphology for the patient's age. Hemorrhage: None. Cerebral parenchyma: Normal. Midline shift: None. Brainstem/Cerebellum: Normal. Calvarium: Normal. Visualized Paranasal sinuses/Mastoids: Clear. Cervical Spine CT BONES: Vertebral body heights are maintained. Alignment is normal. There is no evidence of acute frac ture. Degenerative disc changes and facet degenerative changes are seen . SOFT TISSUES: No paraspinal hematoma. The airway appears intact. IMPRESSION: Head CT: No acute abnormality. C-spine CT: Degenerative changes, no acute abnormality. RADIATION DOSE DELIVERED: 1,240.59mGy.cm Total DLP DATA REPOSITORY: All CT scans at this facility are submitted to the National Radiology Data Registry (NRDR) Dose Index Registry (DIR) with the [employer] ([employer]). RADIATION OPTIMIZATION: All CT scans at this facility use at least one of these dose optimization te chniques: automated exposure control; mA and/or kV adjustment per patient size (includes targeted exa ms where dose is matched to clinical indication); or iterative reconstruction.
--- NOTE | 2023-02-17 18:00 | DI.RAD_ITS ---
Exam(s) XR CHEST 2V PA LATERAL EXAM: XR CHEST 2V PA LATERAL CLINICAL HISTORY: syncope TECHNIQUE: 2D digital imaging was performed. COMPARISON: CR XR PORTABLE CHEST AP from 02/07/2023 FINDINGS: Electronic devices and over left upper lung. HEART: Normal size. Aorta: Not dilated. Calcification at arch. Mildly tortuous. PULMONARY VASCULATURE: Normal. LUNGS: Clear. PLEURAL SPACE: No pleural effusion or pneumothorax. BONE:Degenerative changes. No compression fracture. IMPRESSION: No acute abnormality. DATA REPOSITORY: RADIATION DOSE DELIVERED:
--- NOTE | 2023-02-17 18:03 | W.ED.GENAD ---
Discharge Plan Disposition Patient Disposition: Home Condition: Stable Discharge Details Clinical Impression: Syncope, Blunt head trauma Primary Care Provider: Jena Mitchell ED Provider: Lenny Massey Home Meds and New Rx's Prescriptions: Continued irbesartan 300 mg tablet 300 mg PO DAILY gabapentin 100 mg capsule 100 mg PO QHS ferrous sulfate [Feosol] 325 mg (65 mg iron) tablet 650 mg PO DAILY Patient Comments: pt states not taking Eliquis 5 mg tablet 5 mg PO BID diphenhydramine HCl [Benadryl] 25 mg capsule 25 mg PO QHS PRN diltiazem HCl [Cartia XT] 300 MG capsule,extended release 24hr 300 mg PO DAILY escitalopram oxalate 20 MG tablet 20 mg PO DAILY Victoza 2-Tray 0.6 mg/0.1 mL (18 mg/3 mL) pen injector 0.6 mg subcut HS fluticasone propionate [Allergy Relief (fluticasone)] 50 mcg/actuation spray,suspension 2 spray intranasal DAILY PRN Rx Instructions: administer into each nostril aspirin [Adult Aspirin Regimen] 81 mg tablet,delayed release (DR/EC) 81 mg PO DAILY Patient Comments: pt states not taking levothyroxine 125 mcg Tablet 150 mcg PO DAILY meclizine 12.5 mg tablet See Rx Instructions PO DAILY PRN Rx Instructions: take 1-2 tablets every 8 hours as needed for nausea. fexofenadine 60 mg Tablet 60 mg PO DAILY Patient Comments: pt states not taking magnesium 200 mg Tablet 400 mg PO DAILY Patient Comments: pt states not taking AZO Complete Feminine Balance 5 billion cell Capsule 1 cap PO Patient Comments: pt states not taking furosemide 40 mg tablet 40 mg PO BID Patient Comments: Take 1 tablet by mouth twice a day am and 2 pm rosuvastatin 20 mg tablet 20 mg PO DAILY Patient Comments: TAKE ONE TABLET BY MOUTH EVERY DAY acetaminophen 500 mg tablet 500 mg PO Q6H PRN (Reason: pain) Qty: 60 2RF Discharge Instructions Instructions: Syncope (ED) Additional Instructions: your blood work and imaging did not show concerning findings at this time follow up with your primary care provider and/or adhesive primer as soon as possible, discuss if your diltiazem or irbesartan should be lowered if you feel more ill, have chest pain or difficulty breathing return to the emergency department Medical Decision Making 77 yo female with hx of CAD s/p VASIL[place] [facility] [place], HFpEF, htn, afib, who comes in with cc of syncope. She states she has had two episodes where she goes to stand up and completely loses consciousness and had an episode this morning. She denies fevers, chills, chest pain, dyspnea. It is unclear why she came in now rather then this morning. She is caox4 on arrival speaking clearly in no distress and appears well. She has no calf tenderness, clear lungs, no focal neuro deficits, no significant signs of trauma. She has no hypoxia or tachycardia so doubt PE. She has no tearing back pain and equal pulses peripherally so doubt dissection. Will proceed with cbc, cmp, ekg/troponin, cxr and given she states the syncope caused her to fall will obtain ct head/c spine imaging unremarkable, labs unremarkable, symptoms for over 3 hours so do not feel delta troponin would be of benefit. Pt has a zio patch she got today on already. I offered observation admission but she declined, has clinical decision making capacity and understands reasons for observation admission and still wants d/c. She will f/u with her pcp hector and return precautions given. I did recommend discussing with her pcp lowering her dilt or irbesartan and she states she will discuss this with her pcp. Differential Diagnosis Differential Diagnosis: orthostasis, anemia, acs Imaging Data Radiologic Study: Attestation: I personally reviewed and interpreted this imaging study as follows: Imaging: CT Scan Radiologist's impression: no acute findings Radiologic Study #2: Attestation: I personally reviewed and interpreted this imaging study as follows: Imaging: X-Ray Radiologist's impression: no acute findings Lab Data Lab results reviewed: Yes I reviewed the patient's lab results. ECG Data Attestation: I personally reviewed and interpreted this ECG (s) as follows: Prior ECG tracings: available for review Interpretation: afib rate of 84, no stemi, qtc 461 HPI General Mode of arrival: wheelchair. Date/Time Provider Initiated Documentation: 02/17/23 17:09. Limitations to Documentation: no limitations. Information obtained by: patient. History of Present Illness 77 year old F presents to the emergency department with the chief complaint of syncope, described as moderate, Patient started experiencing this hour(s) (10) and it has been now resolved. No relieving factors improve symptom(s), No exacerbating factors reported . Patient notes denies chest pain and fever/chills. Patient did receive the following treatments prior to arrival, none Related Data Home Medications Medication Instructions Recorded Confirmed diltiazem HCl 300 mg 300 mg PO DAILY 02/29/16 02/17/23 capsule,extended release 24 hr (Cartia XT) escitalopram oxalate 20 mg tablet 20 mg PO DAILY 02/29/16 02/17/23 gabapentin 100 mg capsule 100 mg PO QHS 12/11/20 02/17/23 fluticasone propionate 50 2 spray intranasal DAILY PRN 04/25/21 02/17/23 mcg/actuation nasal spray,suspension (Allergy Relief (fluticasone)) liraglutide 0.6 mg/0.1 mL (18 mg/3 0.6 mg subcut HS 04/25/21 02/17/23 mL) subcutaneous pen injector (Victoza 2-Tray) levothyroxine 125 mcg tablet 150 mcg PO DAILY 06/06/21 02/17/23 ferrous sulfate 325 mg (65 mg 650 mg PO DAILY 06/22/21 02/17/23 iron) tablet (Feosol) meclizine 12.5 mg tablet See Rx Instructions PO DAILY PRN 10/25/21 02/17/23 irbesartan 300 mg tablet 300 mg PO DAILY 02/14/22 02/17/23 acetaminophen 500 mg tablet 500 mg PO Q6H PRN pain #60 tabs 03/26/22 02/17/23 aspirin 81 mg tablet,delayed 81 mg PO DAILY 06/19/22 02/17/23 release (Adult Aspirin Regimen) L. crispatus, gasseri, jensenii, 1 cap PO 07/16/22 01/27/23 rhamnosus 5 billion cell capsule (AZO Complete Feminine Balance) fexofenadine 60 mg tablet 60 mg PO DAILY 07/16/22 02/17/23 magnesium 200 mg tablet 400 mg PO DAILY 07/16/22 02/17/23 apixaban 5 mg tablet (Eliquis) 5 mg PO BID 01/27/23 02/17/23 diphenhydramine HCl 25 mg capsule 25 mg PO QHS PRN 01/27/23 02/17/23 (Benadryl) furosemide 40 mg tablet 40 mg PO BID 02/07/23 02/17/23 rosuvastatin 20 mg tablet 20 mg PO DAILY 02/07/23 02/17/23 Previous Rx's Medication Instructions Recorded acetaminophen 500 mg tablet 500 mg PO Q6H PRN pain #60 tabs 03/26/22 Allergies Allergy/AdvReac Type Severity Reaction Status Date / Time tamoxifen Allergy Intermediate liver Verified 01/27/23 11:24 complications amlodipine AdvReac Intermediate leg pain Verified 01/27/23 11:24 atenolol AdvReac Intermediate leg pain Verified 02/07/23 08:22 doxazosin AdvReac Intermediate leg pain Verified 02/07/23 08:22 enalapril AdvReac Intermediate leg pain Verified 02/07/23 08:22 glipizide AdvReac Intermediate body aches Verified 02/07/23 08:22 lisinopril AdvReac Intermediate leg pain Verified 02/07/23 08:22 sertraline AdvReac Intermediate leg pain Verified 02/07/23 08:22 simvastatin [From Zocor] AdvReac Intermediate leg pain Verified 02/07/23 08:22 Ipvhype-NQG-ItC Reductase AdvReac Intermediate leg pains Verified 02/07/23 08:22 Inhibitor [Mzioljt-Lik-Pku Reductase Inhibitor] ticlopidine AdvReac Intermediate leg pain Verified 02/07/23 08:22 valsartan AdvReac Intermediate leg pain Verified 02/07/23 08:22 General Stated Complaint: [id number] JUANITA: 3 Review of Systems All systems reviewed & are unremarkable except as noted in HPI and below Constitutional Constitutional: Denies chills, Denies fever(s) and Denies weakness Cardiovascular Cardiovascular: Denies chest pain and Denies dyspnea Respiratory Respiratory: Denies cough and Denies dyspnea Gastrointestinal Gastrointestinal: Denies abdominal pain, Denies nausea and Denies vomiting Integumentary/Breasts Skin/Breast: Denies rash Neurologic Neurologic: Denies weakness PFSH All Active Problems (Updated 02/17/23 @ 20:25 by Lenny Massey MD) Unstable angina (Acute) Syncope (Chronic) Blunt head trauma (Acute) Dyspnea (Acute) Angina at rest (Acute) Coronary atherosclerosis (Acute) Spinal stenosis (Acute) Trochanteric bursitis, right hip (Acute) DEPO MEDROL 11/29/22 Trochanteric bursitis, left hip (Acute) DEPO MEDROL 11/29/22 Left knee DJD (Acute) Depo-Medrol injection: 06/24/2022 Benign paroxysmal positional vertigo (Acute) Sleep apnea (Acute) Mitral regurgitation (Chronic) Diastolic dysfunction (Acute) CKD (chronic kidney disease) (Chronic) History of total right hip replacement (Acute 03/26/22) Diabetes mellitus (Chronic) SVT (supraventricular tachycardia) (Chronic) History of syncope (Chronic) Renal artery stenosis (Chronic) GERD (gastroesophageal reflux disease) (Chronic) 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 coli UTI (Acute) Peripheral vascular angioplasty status with implants and grafts (Acute) Nasal obstruction (Chronic) Hypertrophy of inferior nasal turbinate (Chronic) Tendinitis of long head of biceps brachii of left shoulder (Acute) Left rotator cuff tear (Acute) Aortic stenosis (Chronic) Dyspnea on exertion (Acute) A-fib (Chronic) Acute UTI (Acute) Acute anemia (Acute) Lower GI bleed (Acute) Melena (Acute) Urinary tract infection (Acute) Anemia (Chronic) Hematochezia (Acute) Tubular adenoma of colon (Acute) Hyperplastic colon polyp (Acute) Medical History Breast Cancer Diabetes mellitus Difficult airway Per [facility] anesthesia notes she is a difficult airway. She has had previous intubations with VL grade 1 view. Also easy mask with 90 mm OPA, and successful LMA placement in the past. Dizziness Dyslipidemia Gastro-esophageal reflux disease without esophagitis History of small bowel obstruction Hyperlipidemia Hypertension Hypothyroidism Lymphoma Nasal septal deviation STEVENS (nonalcoholic steatohepatitis) TERRY (obstructive sleep apnea) PVD (peripheral vascular disease) Recurrent UTI (03/15/16) Sensorineural hearing loss of both ears Shortness of breath SVT (supraventricular tachycardia) F/U with Dr. Sweet Syncope Type 2 diabetes mellitus with diabetic peripheral angiopathy without gangrene Surgical History Excision of neck mass History of colonoscopy (~07/2021) History of esophagogastroduodenoscopy (EGD) (~07/2021) History of total left hip replacement Hx of tonsillectomy Nail removal (toe) Partial mastectomy with sentinal node Pt. states this is incorrect, she had a lumpectomy Rotator Cuff Repair Social History Smoking/Tobacco Use Status: Never Smoking risk assessment performed?: Yes Alcohol Intake: never Drug use: Never Substance use type: does not use Do you feel safe at home: Yes Do you feel safe in your relationship?: Yes Female Reproductive History Menstrual Menopause type: natural Exam Const General: no acute distress Orientation: alert HENMT Head: normal to inspection Ears: external ears normal General nose exam: external nose normal Mouth: moist mucous membranes Eyes General: appearance normal, both eyes and all related structures Neck Neck: normal visual inspection Resp Effort & Inspection: normal respiratory effort and able to speak in complete sentences Auscultation: clear to auscultation bilaterally Cardio Jugular venous pressure: no JVD Rate: regular rate Skin General skin exam: no rashes or lesions noted Neuro General: patient alert and patient oriented x3 Extrem General: normal to inspection Psych Mental Status: mental status grossly normal Course Vital Signs Vital signs: Vital Signs Temperature 36.4 C 02/17/23 17:12 Pulse 78 02/17/23 17:12 Respiratory Rate 18 02/17/23 17:12 Blood Pressure 104/56 L 02/17/23 17:12 Pulse Oximetry 97 02/17/23 17:12 Temperature 36.4 C 02/17/23 17:12 Pulse 78 02/17/23 17:12 Respiratory Rate 18 02/17/23 17:12 Blood Pressure 104/56 L 02/17/23 17:12 Blood Pressure Position Sitting 02/17/23 17:12 Pulse Oximetry 97 02/17/23 17:12 Oxygen Delivery Method Room Air 02/17/23 17:12 Oxygen Flow Rate 0 02/17/23 17:12
[2023-02-17 18:10] LABS: Abs Immature Grans 0.07 10^3/uL (0.0-0.06); Absolute Basophil Count 0.05 10^3/uL (0.0-0.2); Absolute Eosinophil Count 0.35 10^3/uL (0.0-0.7); Absolute Lymphocyte Count 2.12 10^3/uL (1.2-3.4); Absolute Monocyte Count 1.07 10^3/uL (0.1-0.8); Absolute Neutrophil Count 6.56 10^3/uL (1.2-6.7); Basophils % 0.5; Eosinophils % 3.4; HCT 27.2 % (36.0-46.0); HGB 8.9 g/dL (11.2-15.7); Immature Grans % 0.7; Lymphocytes % 20.7; MCH 31.8 pg (27.0-33.0); MCHC 32.7 % (32.0-36.0); MCV 97 fL (80-95); MPV 10.4 fL (8.0-11.0); Monocytes % 10.5; Neutrophils % 64.2; Platelet Count 246 10^3/uL (130-400); RDW 16.1 % (11.7-14.6); RDW-SD 56.9 fL; WBC 10.22 10^3/uL (4.4-10.8)
[2023-02-17 18:24] LABS: INR 1.1 (0.9-1.1); PTT Activated 22.9 sec (21.5-31.9)
[2023-02-17] MEDS: Normal Saline 500 ML IV (18:24)
[2023-02-17 18:32] LABS: ALT 31 U/L (14-59); AST 44 U/L (15-37); Albumin 3.1 g/dL (3.4-5.0); Alkaline Phosphatase 170 U/L (46-116); Anion Gap 9.7 mmol/L (3-11); BUN 40 mg/dL (7-18); Bilirubin, Total 0.4 mg/dL (0.2-1.0); CO2 27.3 mmol/L (21.0-32.0); CREATININE 1.6 mg/dL (0.55-1.02); Calcium 8.9 mg/dL (8.5-10.1); Chloride 101 mmol/L (98-107); Glucose 133 mg/dL (74-106); Magnesium 2.1 mg/dL (1.8-2.4); Potassium 3.6 mmol/L (3.5-5.1); Sodium 138 mmol/L (136-145); Total Protein 6.4 g/dL (6.4-8.2); Troponin I < 50 ng/L (<or=60)
--- NOTE | 2023-02-17 19:33 | DI.VRAD_ITS ---
PROCEDURE INFORMATION: Exam: CT Head Without Contrast Exam date and time: 02/17/2023 7:10 PM Age: 77 years old Clinical indication: Injury or trauma; Blunt trauma (contusions or hematomas); With loss of consciousness; Not specified; Injury date: 02/17/23; Injury details: Fall, sycope; Prior surgery; Surgery date: 3-7 days post-operative; Surgery type: Recent stent placed in neck TECHNIQUE: Imaging protocol: Computed tomography of the head without contrast. Radiation optimization: All CT scans at this facility use at least one of these dose optimization techniques: automated exposure control; mA and/or kV adjustment per patient size (includes targeted exams where dose is matched to clinical indication); or iterative reconstruction. COMPARISON: MR BRAIN WO/W 06/22/2021 1:57 PM FINDINGS: Brain: Cerebral sulci show bilateral symmetry with no supratentorial mass or mass effect detected. A few poorly marginated hypodensities seen throughout the deep and periventricular white matter of both cerebral hemispheres may reflect mild microvascular ischemic changes. Brainstem and cerebellum are unremarkable and there is no evidence of acute transcortical infarction or recent intracranial hemorrhage. Cerebral ventricles: Ventricular and cisternal spaces are normal in size and configuration and there is no midline shift or hydrocephalus. Paranasal sinuses: Grossly clear throughout. Mastoid air cells: Grossly clear bilaterally. Bones/joints: Bony calvarium and skull base are intact and no acute fractures are detected. Soft tissues: Unremarkable. IMPRESSION: Suspected microvascular ischemic changes of mild degree with no evidence of acute transcortical infarction, recent hemorrhage or hydrocephalus. No acute intracranial process is detected. PROCEDURE INFORMATION: Exam: CT Cervical Spine Without Contrast Exam date and time: 02/17/2023 7:10 PM Age: 77 years old Clinical indication: Injury or trauma; Blunt trauma (contusions or hematomas); With loss of consciousness; Not specified; Injury date: 02/17/23; Injury details: Fall, sycope; Prior surgery; Surgery date: 3-7 days post-operative; Surgery type: Recent stent placed in neck TECHNIQUE: Imaging protocol: Computed tomography of the cervical spine without contrast. Radiation optimization: All CT scans at this facility use at least one of these dose optimization techniques: automated exposure control; mA and/or kV adjustment per patient size (includes targeted exams where dose is matched to clinical indication); or iterative reconstruction. COMPARISON: CT NECK W 10/30/2021 3:11 PM FINDINGS: Bones/joints: The craniocervical and atlantoaxial articulations appear grossly preserved and the odontoid process is intact. Incomplete fusion of the posterior arch of C1 is a common developmental variant. There are mild anterolistheses of C3 upon C4, C4 upon C5 and C5 upon C6 and there is gross preservation of vertebral body height throughout cervical levels with no vertebral body fractures or other significant subluxations detected. Changes of facet arthropathy are most advanced on the right side at C2-C3 and C5-C6 and on the left side at C3-C4 and C4-C5 with no acute fractures detected involving the posterior elements of the cervical spine. Discs/Spinal canal/Neural foramina: Loss of disc space height with posterior osteocartilaginous ridging is most significant at C6-C7 resulting in canal narrowing and possible mass-effect upon the ventral cord which could be better evaluated with MRI. Uncovertebral and facet changes produce left foraminal distortions/narrowings at C3-C4 and C6-C7. Lungs: No pneumothorax or consolidation detected at the lung apices. Soft tissues: Unremarkable. IMPRESSION: Cervical spondylosis with suspected central canal and foraminal narrowing as above. No acute cervical fractures are detected. Dictated and Authenticated by: Viet Cornejo MD. Ordering:JEFF Galvez MD
--- NOTE | 2023-02-17 20:00 | DI.VRAD_ITS ---
PROCEDURE INFORMATION: Exam: XR Chest Exam date and time: 02/17/2023 7:17 PM Age: 77 years old Clinical indication: Other: Sycope; Patient HX: Syncope/ fall; Additional info: PT has heart monitor on TECHNIQUE: Imaging protocol: Radiologic exam of the chest. Views: 2 views. COMPARISON: CR XR PORTABLE CHEST AP 02/07/2023 9:03 AM FINDINGS: Lungs: Unremarkable. No consolidation. Pleural spaces: Unremarkable. No pleural effusion. No pneumothorax. Heart/Mediastinum: Grossly stable. Bones/joints: Unremarkable. IMPRESSION: No acute findings. Dictated and Authenticated by: Rohan Young MD. Ordering:JEFF Galvez MD
== END 2023-02-17 20:30 | disposition home or self-care (01) ==
PROVIDERS: Emergency Provider Emergency Medicine; PCP Family Medicine
DX: R55 Syncope and collapse (principal); I48.91 Unspecified atrial fibrillation; I25.10 Atherosclerotic heart disease of native coronary artery without angina pectoris; I13.0 Hypertensive heart and chronic kidney disease with heart failure and stage 1 through stage 4 chronic kidney disease, or unspecified chronic kidney disease; I50.32 Chronic diastolic (congestive) heart failure; N18.9 Chronic kidney disease, unspecified; E11.22 Type 2 diabetes mellitus with diabetic chronic kidney disease; E11.42 Type 2 diabetes mellitus with diabetic polyneuropathy; Z95.5 Presence of coronary angioplasty implant and graft; Z79.82 Long term (current) use of aspirin; Z79.01 Long term (current) use of anticoagulants; Z79.84 Long term (current) use of oral hypoglycemic drugs
CPT/HCPCS: 80053; 93005; 96361; 96365; 99285; 70450; 71046; 72125; 83735; 84484; 85025; 85610; 85730; 93010; 99284; J0131

== ENCOUNTER 2023-03-24 02:42 | Outpatient (CLI) | payer OTHER, SELFPAY ==
[2023-03-24 16:24] LABS: Abs Immature Grans 0.02 10^3/uL (0.0-0.06); Absolute Basophil Count 0.03 10^3/uL (0.0-0.2); Absolute Eosinophil Count 0.35 10^3/uL (0.0-0.7); Absolute Lymphocyte Count 1.21 10^3/uL (1.2-3.4); Absolute Monocyte Count 0.73 10^3/uL (0.1-0.8); Absolute Neutrophil Count 3.88 10^3/uL (1.2-6.7); Basophils % 0.5; Eosinophils % 5.6; HCT 36.2 % (36.0-46.0); HGB 11.1 g/dL (11.2-15.7); Immature Grans % 0.3; Lymphocytes % 19.5; MCH 28.9 pg (27.0-33.0); MCHC 30.7 % (32.0-36.0); MCV 94 fL (80-95); Monocytes % 11.7; Neutrophils % 62.4; Platelet Count 257 10^3/uL (130-400); RBC 3.84 10^6/uL (3.93-5.22); RDW-SD 55.4 fL; WBC 6.22 10^3/uL (4.4-10.8)
[2023-03-24 16:54] LABS: Hemoglobin A1C 5.6 % (<5.7)
[2023-03-24 17:41] LABS: Anion Gap 9.4 mmol/L (3-11); BUN 20 mg/dL (7-18); CO2 29.6 mmol/L (21.0-32.0); CREATININE 1.5 mg/dL (0.55-1.02); Calcium 9.1 mg/dL (8.5-10.1); Chloride 103 mmol/L (98-107); Estimated GFR 35.01 (mL/min/1.73m2); Glucose 124 mg/dL (74-106); Potassium 3.6 mmol/L (3.5-5.1); Sodium 142 mmol/L (136-145); TSH (W/Ref FT4) 0.58 uIU/mL (0.36-3.74)
== END 2023-03-24 02:43 | disposition home or self-care (01) ==
LOC: LBO 02:42
PROVIDERS: PCP Family Medicine; Visit Provider Family Medicine
DX: E11.9 Type 2 diabetes mellitus without complications (principal); I48.20 Chronic atrial fibrillation, unspecified
CPT/HCPCS: 36415; 80048; 83036; 84443; 85025

== ENCOUNTER → 2023-04-02 01:02 | Outpatient (CLI) | payer OTHER, SELFPAY ==
--- NOTE | 2023-04-02 07:45 | DI.MRI_ITS ---
Exam(s) MR LOWER JOINT RT WO EXAM: MR LOWER JOINT RT WO CLINICAL HISTORY: PAIN,H/O TOTAL HIP REPLACEMENT,Z96.641,T84.84XA TECHNIQUE: Multiplanar multisequence MRI of Pelvis was performed COMPARISON: CR XR HIP RT COMPLETE AP PELVIS from 11/29/2022 FINDINGS: Bones: Bilateral hip prostheses. No abnormal signal surrounding the prostheses. There is no fractur e or contusion pattern. Lesser trochanter fragment again noted above femoral neck region. Joints: No significant joint effusion is present. The SI joints and symphysis pubis are well maintain ed. Musculotendinous structures: Musculotendinous structures demonstrate no abnormality. Intrapelvic structures: Sigmoid diverticulosis. Bicornuate uterus. Thickened endometrium to 10 mill imeters. Ovaries normal. Urinary bladder nearly empty. Fatty containing left inguinal hernia.. IMPRESSION: Bilateral hip prostheses. No abnormal surrounding bony lucencies. No joint effusions. No tendon tear identified. Bicornuate uterus with thickened endometrium. 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 DATA REPOSITORY:
--- NOTE | 2023-04-02 07:45 | DI.MRI_ITS ---
Exam(s) MR LUMBAR SPINE WO EXAM: MR LUMBAR SPINE WO CLINICAL HISTORY: pain,SPINAL STENOSIS, M48.00. TECHNIQUE: Multiplanar multisequence MRI of the Lumbar spine was performed. COMPARISON: CT ABD PELVIS WITH CONTRAST from 09/23/2013 CT CHEST ABD PELVIS WITH CONTRAST from 07/10/[address] ABDOMEN PELVIS WO from 10/25/2021 CR,XR XR CHEST 2V PA LATERAL from 02/17/2023 FINDINGS: Bones: The last intervertebral disc space is designated the L5/S1 level for the numbering purpose of this examination. The vertebral body heights are well maintained. Mild degenerative levoscoliosis. No spondylolysis or spondylolisthesis. There are a rounded lesions high T1 signal consistent with no suspicious bony lesions. Hemangiomas s een in the L1, L2, L3, S1 and S2 vertebral bodies. Cord: The conus tip ends at the T12 L1 level. It is of normal size and signal intensity. T12-L1: No disc herniations or bulges are present. No central spinal canal or neural foraminal stenos is. L1-2: No disc herniations or bulges are present. No central spinal canal or neural foraminal stenosis . L2-3: Severe loss of disc height. Degenerative signal changes in the endplates. Broad-based disc os teophytes. Minimal facet degenerative changes. Mild bilateral neural foraminal narrowing. Mild akin tral canal stenosis. L3-4: Marked loss of disc height eccentric toward the right. Endplate osteophytes eccentric toward the right. Moderate right neural foraminal narrowing. Mild central canal stenosis. L4-5: Moderate loss of disc height. Broad-based disc osteophytes. Facet degenerative changes and li gamentous hypertrophy combine to produce mild central canal stenosis and moderate to severe bilateral neural foraminal narrowing. L5-S1: Disc osteophytes worse project posteriorly. Facet degenerative changes combine with disc oste ophytes to produce severe left neural foraminal narrowing and moderate to severe right neural foramin al narrowing. No central canal stenosis. The visualized SI joints and sacrum are well maintained. Soft tissues: The paraspinal soft tissues are unremarkable. The spleen is noted to be enlarged. This appears stable when compared with prior exams back to 2013. IMPRESSION: Advanced degenerative disc changes. Mild central canal stenosis at L2-3, L3-4 and L4-5. Neural fora niki narrowing is most severe on the left at L5-S1. No evidence of disc herniation. Spleen is noted to be enlarged, stable back to 2014.. DATA REPOSITORY:
== END ==
PROVIDERS: PCP Family Medicine; Visit Provider Student in an Organized Health Care Education/Training Program
DX: M99.63 Osseous and subluxation stenosis of intervertebral foramina of lumbar region (principal); T84.84XA Pain due to internal orthopedic prosthetic devices, implants and grafts, initial encounter; Z96.643 Presence of artificial hip joint, bilateral; M48.061 Spinal stenosis, lumbar region without neurogenic claudication
CPT/HCPCS: 73721; 72148

== ENCOUNTER 2023-04-11 10:21 | Outpatient (CLI) | payer OTHER, SELFPAY ==
--- NOTE | 2023-04-11 10:10 | DI.RAD_ITS ---
Exam(s) XR HIP RT AP LAT ONLY EXAM: XR HIP RT AP LAT ONLY CLINICAL HISTORY: eval R EVAN and pain. TECHNIQUE: 2D digital imaging was performed. COMPARISON: CR XR HIP RT COMPLETE AP PELVIS from 11/29/2022 FINDINGS: 2 views. There is stable position alignment of the components of the right hip prosthesis. No fracture or loo sening evident. Some dystrophic calcification is again noted. This appears unchanged. IMPRESSION: DATA REPOSITORY: RADIATION DOSE DELIVERED:
== END 2023-04-11 10:22 | disposition home or self-care (01) ==
LOC: DIORS 10:22
PROVIDERS: PCP Family Medicine; Referring Provider Family Medicine; Visit Provider Student in an Organized Health Care Education/Training Program
DX: S76.911A Strain of unspecified muscles, fascia and tendons at thigh level, right thigh, initial encounter (principal); S72.111A Displaced fracture of greater trochanter of right femur, initial encounter for closed fracture; X58.XXXA Exposure to other specified factors, initial encounter; T84.84XA Pain due to internal orthopedic prosthetic devices, implants and grafts, initial encounter; Z96.641 Presence of right artificial hip joint
CPT/HCPCS: 99215; 73502

== ENCOUNTER → 2023-04-15 01:52 | Outpatient (CLI) | payer OTHER, SELFPAY ==
--- NOTE | 2023-04-15 | DI.US_ITS ---
Exam(s) US PELVIS TRANSVAGINAL EXAM: US PELVIS TRANSVAGINAL CLINICAL HISTORY: ENDOMETRIAL THICKENING, R93.89, H/O BREAST CA, NEVER ON HORMONE TREATMENT TECHNIQUE: Ultrasound of the pelvis was performed both transabdominal and transvaginal. COMPARISON: US US ABDOMEN LIMITED from 11/25/2022 FINDINGS: Performed 04/15/2023. Submitted to me for interpretation on today's date, Friday04/29/2023 UTERUS: Anteverted Measures 6 cm length x 3 cm AP x 5 cm wide. There are no uterine fibroids. The endometrium is abnormally thickened measuring 13 mm thickness and contains multiple cystic compon ents and appears somewhat vascular. There is no free fluid in the endometrial canal. CERVIX: There are no obvious nabothian cysts. RIGHT OVARY: Not visualized LEFT OVARY: Measures 1.4 x 1.1 x 1 cm No significant cysts nor masses evident in the left ovary. CUL-DE-SAC: There is a small amount of free fluid in the cul-de-sac. IMPRESSION: 1. Abnormal appearing endometrium which is thickened and exhibits multiple cystic regions. First con sideration is to rule out endometrial malignancy. 2. Right ovary is not seen. Left ovary unremarkable. 3. Small amount of free fluid in the cul-de-sac noted. DATA REPOSITORY:
== END ==
PROVIDERS: PCP Family Medicine; Visit Provider Family Medicine
DX: R93.89 Abnormal findings on diagnostic imaging of other specified body structures (principal); Z85.3 Personal history of malignant neoplasm of breast
CPT/HCPCS: 76830; 76856

== ENCOUNTER → 2023-04-22 15:03 | Outpatient (CLI) | payer OTHER, SELFPAY ==
--- NOTE | 2023-04-22 14:21 | DI.RAD_ITS ---
Exam(s) XR RIBS LT W PA LAT CHEST EXAM: XR RIBS LT W PA LAT CHEST CLINICAL HISTORY: LT SIDED RIB PAIN, R07.81 TECHNIQUE: 2D digital imaging was performed. Six images are obtained. COMPARISON: CR,XR XR CHEST 2V PA LATERAL from 02/17/2023 FINDINGS: MEDIASTINUM: Normal. HEART: Normal. PULMONARY VASCULATURE: Normal. LUNGS: Clear. PLEURAL SPACE: There are small bilateral pleural effusions, right greater than left. BONE:Within normal limits for the patient's age. LEFT RIBS: Normal. OTHER FINDINGS:Normal. IMPRESSION: 1. Small bilateral pleural effusions, right greater than left. 2. Unremarkable left ribs. DATA REPOSITORY: RADIATION DOSE DELIVERED:
== END ==
PROVIDERS: PCP Family Medicine; Visit Provider Nurse Practitioner Family
DX: R07.81 Pleurodynia (principal)
CPT/HCPCS: 71046; 71100

== ENCOUNTER → 2023-04-25 00:57 | Outpatient (CLI) | payer OTHER, SELFPAY ==
--- NOTE | 2023-04-25 08:45 | DI.CT_ITS ---
Exam(s) CT LOWER EXTREMITY RT WO EXAM: CT LOWER EXTREMITY RT WO CLINICAL HISTORY: PAIN, ? 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 TECHNIQUE: Imaging Protocol: Axial computed tomography images with coronal and sagittal reformatted images were created and reviewed. CONTRAST MATERIAL: Oral: no COMPARISON: CR XR HIP RT COMPLETE AP PELVIS from 11/29/2022 MR MR LOWER JOINT RT WO from 04/02/2023 CR XR HIP RT AP LAT ONLY from 04/11/2023 FINDINGS: The right hip prosthesis shows no change in alignment from prior exams. There are no abnormal surrou nding lucencies. No evidence of acute fracture. A bony fragment is again noted above the greater tr ochanter, also a chronic finding. Soft tissues: No evidence hematoma or subcutaneous edema. No abnormal signal within the muscle. IMPRESSION: No evidence of loosening of the right hip prosthesis. RADIATION DOSE DELIVERED: 675.01mGy.cmTotal DLP 675.01mGy.cm Total DLP DATA REPOSITORY: All CT scans at this facility are submitted to the National Radiology Data Registry (NRDR) Dose Index Registry (DIR) with the [employer] ([employer]). RADIATION OPTIMIZATION: All CT scans at this facility use at least one of these dose optimization te chniques: automated exposure control; mA and/or kV adjustment per patient size (includes targeted exa ms where dose is matched to clinical indication); or iterative reconstruction.
== END ==
PROVIDERS: PCP Family Medicine; Visit Provider Student in an Organized Health Care Education/Training Program
DX: T84.84XD Pain due to internal orthopedic prosthetic devices, implants and grafts, subsequent encounter; Z96.641 Presence of right artificial hip joint; S72.111D Displaced fracture of greater trochanter of right femur, subsequent encounter for closed fracture with routine healing; Z98.890 Other specified postprocedural states
CPT/HCPCS: 73700

== ENCOUNTER 2023-04-25 03:00 | Outpatient (CLI) | payer OTHER, SELFPAY ==
[2023-04-25 14:51] LABS: ESR 11 mm/hr (0-30)
== END 2023-04-25 03:01 | disposition home or self-care (01) ==
LOC: LBO 03:00
PROVIDERS: PCP Family Medicine; Visit Provider Student in an Organized Health Care Education/Training Program
DX: S72.111D Displaced fracture of greater trochanter of right femur, subsequent encounter for closed fracture with routine healing (principal); T84.84XD Pain due to internal orthopedic prosthetic devices, implants and grafts, subsequent encounter; Z96.641 Presence of right artificial hip joint; X58.XXXD Exposure to other specified factors, subsequent encounter
CPT/HCPCS: 36415; 85652; 86140

== ENCOUNTER → 2023-05-01 02:49 | Outpatient (CLI) | payer OTHER, SELFPAY ==
--- NOTE | 2023-05-01 14:05 | DI.RAD_ITS ---
Exam(s) RF JOINT INJECTION FLUORO GUID EXAM: RF JOINT INJECTION FLUORO GUID CLINICAL HISTORY: R HIP INJ,RT HIP PAIN, M25.551,Z96.641 TECHNIQUE: 2D and realtime digital imaging was performed. CONTRAST MATERIAL: Refer to procedure report. COMPARISON: No exams were available for comparison FINDINGS: Fluoroscopy was provided for Dr. Galindo during the performance of a right hip injection. Please r efer to the procedure report for complete details. Ka,r=0.83 mGy IMPRESSION: RADIATION DOSE DELIVERED:
[2023-05-01] MEDS: Bupivacaine 0.5% Pres-Free 10 ML VIAL IJ (14:16)
--- NOTE | 2023-05-02 07:51 | W.PROCNOTE ---
Date of service: 05/01/23 Time of Service: 14:05 Procedure Note Date of procedure: 05/01/23 Procedure: Right Hip Injection with Fluoroscopic Guidance Surgeon/Proceduralist/Physician: Jose Alberto Galindo Procedure Diagnosis: Right Hip Pain s/p EVAN Procedure Indications: Cherry has had progressive pain of the RIGHT hip and groin following a hip replacement. She initially did well but now is having significant worsening of symptoms affecting all daily activities. In the work-up process I recommended aspiration of the hip and anesthetic injection. I had discussed the risks of the procedure and the patient elected to proceed. Procedure Description: Cherry was greeted in the flouroscopy room. The correct side was identified and the consent was reviewed with the patient and signed. The patient was then placed in the supine position on the fluoroscopy table. The RIGHT hip was then prepped with Chloraprep. The anterolateral injection starting point was identiifed by bony landmarks and fluoroscopy. The skin and soft tissue in the tract of the injection was anesthetized with 1% Lidocaine. A spinal needle was then inserted deep into the hip joint at the level of the lateral femoral neck under fluoroscopic guidance. The needle tip was felt to be contacting the ceramic head and this was also confirmed with fluoroscopy. Aspiration was attempted but there was no expressible fluid. I reposition the needle 1 more time lower down on the head with tactile confirmation of contact with femoral head. However, there is no fluid for aspiration. I then proceeded with the injection which went smoothly easily, containing 10 cc of 0.5% bupivacaine. The patient tolerated the procedure well and noted improvement in pre-injection pain. She was able to walk out of the procedure room with much less pain than preinjection.
== END ==
PROVIDERS: PCP Family Medicine; Visit Provider Student in an Organized Health Care Education/Training Program
DX: M25.551 Pain in right hip (principal); T84.84XA Pain due to internal orthopedic prosthetic devices, implants and grafts, initial encounter; Z96.641 Presence of right artificial hip joint
CPT/HCPCS: 20610; 77002

== ENCOUNTER 2023-06-16 14:17 | Outpatient (CLI) | payer OTHER, SELFPAY ==
[2023-06-16 14:46] LABS: Abs Immature Grans 0.11 10^3/uL (0.0-0.06); Absolute Basophil Count 0.05 10^3/uL (0.0-0.2); Basophils % 0.4; Eosinophils % 0.7; HGB 13.1 g/dL (11.2-15.7); Immature Grans % 0.8; Lymphocytes % 8.6; MCHC 32.8 % (32.0-36.0); MCV 92 fL (80-95); MPV 10.8 fL (8.0-11.0); Monocytes % 9.4; Neutrophils % 80.1; Platelet Count 131 10^3/uL (130-400); RBC 4.36 10^6/uL (3.93-5.22); RDW 15.5 % (11.7-14.6); RDW-SD 51.6 fL; WBC 13.67 10^3/uL (4.4-10.8)
[2023-06-16 14:48] LABS: Absolute Lymphocyte Count 1.18 10^3/uL (1.2-3.4); Absolute Monocyte Count 1.28 10^3/uL (0.1-0.8); Absolute Neutrophil Count 10.95 10^3/uL (1.2-6.7)
[2023-06-16 15:09] LABS: ALT 39 U/L (14-59); AST 48 U/L (15-37); Albumin 3.1 g/dL (3.4-5.0); Alkaline Phosphatase 285 U/L (46-116); Anion Gap 7.8 mmol/L (3-11); BUN 26 mg/dL (7-18); Bilirubin, Total 1.5 mg/dL (0.2-1.0); C-Reactive Protein 9.38 mg/dL (0.0-0.3); CO2 26.2 mmol/L (21.0-32.0); CREATININE 1.5 mg/dL (0.55-1.02); Calcium 9.5 mg/dL (8.5-10.1); Chloride 102 mmol/L (98-107); Estimated GFR 35.01 (mL/min/1.73m2); Glucose 99 mg/dL (74-106); Lipase 22 U/L (16-77); Potassium 3.4 mmol/L (3.5-5.1); Sodium 136 mmol/L (136-145)
== END 2023-06-16 14:18 | disposition home or self-care (01) ==
PROVIDERS: PCP Family Medicine; Visit Provider Nurse Practitioner Family
DX: R10.9 Unspecified abdominal pain (principal)
CPT/HCPCS: 36415; 80053; 83690; 85025; 86140

== ENCOUNTER 2023-06-16 15:35 | Outpatient (REF) | payer OTHER, SELFPAY | END 2023-06-16 15:36 | disposition home or self-care (01) | LOC: LBN 15:35 | PROVIDERS: PCP Family Medicine; Visit Provider Nurse Practitioner Family | DX: R10.9 Unspecified abdominal pain (principal) | CPT/HCPCS: 87077; 87086; 87186 ==

== ENCOUNTER 2023-06-28 14:13 | Outpatient (REF) | payer OTHER, SELFPAY ==
[2023-06-28 15:58] LABS: Abs Immature Grans 0.04 10^3/uL (0.0-0.06); Absolute Basophil Count 0.04 10^3/uL (0.0-0.2); Absolute Eosinophil Count 0.29 10^3/uL (0.0-0.7); Absolute Lymphocyte Count 1.13 10^3/uL (1.2-3.4); Absolute Monocyte Count 0.69 10^3/uL (0.1-0.8); Absolute Neutrophil Count 5.27 10^3/uL (1.2-6.7); Basophils % 0.5; Eosinophils % 3.9; HCT 37.2 % (36.0-46.0); Immature Grans % 0.5; Lymphocytes % 15.1; MCH 30.8 pg (27.0-33.0); MCHC 32.3 % (32.0-36.0); MCV 96 fL (80-95); MPV 10.7 fL (8.0-11.0); Monocytes % 9.2; Neutrophils % 70.8; Platelet Count 159 10^3/uL (130-400); RBC 3.89 10^6/uL (3.93-5.22); RDW-SD 56.1 fL; WBC 7.46 10^3/uL (4.4-10.8)
== END 2023-06-28 14:14 | disposition home or self-care (01) ==
LOC: LBN 14:13
PROVIDERS: PCP Family Medicine; Visit Provider Nurse Practitioner Family
DX: N39.8 Other specified disorders of urinary system (principal); N93.8 Other specified abnormal uterine and vaginal bleeding
CPT/HCPCS: 85025

== ENCOUNTER 2023-07-02 12:27 | Outpatient (REF) | payer OTHER, SELFPAY ==
[2023-07-02 17:40] LABS: COMMENT (LAB VIEW ONLY) 23.59 mg/dL; Microalb ug/mg Crea 83.9 ug/mg Cr
== END 2023-07-02 12:28 | disposition home or self-care (01) ==
LOC: NCHCN 12:27
PROVIDERS: PCP Family Medicine; Visit Provider Family Medicine
DX: E11.9 Type 2 diabetes mellitus without complications (principal)
CPT/HCPCS: 82043; 82570

== ENCOUNTER → 2023-07-11 13:21 | Outpatient (CLI) | payer OTHER, SELFPAY ==
--- NOTE | 2023-07-11 13:52 | DI.RAD_ITS ---
Exam(s) XR CHEST 2V PA LATERAL EXAM: XR CHEST 2V PA LATERAL CLINICAL HISTORY: DYSPNEA, R06.00, SHORTNESS OF BREATH SINCE YESTERDAY, KNOWN CHF. TECHNIQUE: 2D digital imaging was performed. COMPARISON: CR XR RIBS LT W PA LAT CHEST from 04/22/2023 FINDINGS: 2 views: Aortic valve TAVR again noted Heart size is normal. The mediastinum is not widened. Mild increased interstitial markings. No distinct Reece B lines. Blunting of the right costophreni c angle may indicate a small amount of right pleural fluid IMPRESSION: Aortic valve TAVR. Heart size upper normal. Subtle small amount of right pleural fluid. DATA REPOSITORY: RADIATION DOSE DELIVERED:
== END ==
PROVIDERS: PCP Family Medicine; Visit Provider Physician Assistant Medical
DX: J90 Pleural effusion, not elsewhere classified (principal); Z95.2 Presence of prosthetic heart valve; R06.00 Dyspnea, unspecified
CPT/HCPCS: 71046

== ENCOUNTER 2023-07-11 15:08 | Outpatient (CLI) | payer OTHER, SELFPAY ==
[2023-07-11 14:17] LABS: Abs Immature Grans 0.01 10^3/uL (0.0-0.06); Absolute Basophil Count 0.03 10^3/uL (0.0-0.2); Absolute Eosinophil Count 0.26 10^3/uL (0.0-0.7); Absolute Lymphocyte Count 0.96 10^3/uL (1.2-3.4); Absolute Monocyte Count 0.81 10^3/uL (0.1-0.8); Basophils % 0.6; Eosinophils % 5.2; HCT 38.8 % (36.0-46.0); HGB 12.5 g/dL (11.2-15.7); Immature Grans % 0.2; Lymphocytes % 19.3; MCH 30.3 pg (27.0-33.0); MCHC 32.2 % (32.0-36.0); MCV 94 fL (80-95); MPV 10.5 fL (8.0-11.0); Monocytes % 16.3; Neutrophils % 58.4; Platelet Count 162 10^3/uL (130-400); RBC 4.13 10^6/uL (3.93-5.22); RDW 15.2 % (11.7-14.6); RDW-SD 52.8 fL; WBC 4.97 10^3/uL (4.4-10.8)
[2023-07-11 15:01] LABS: Anion Gap 9.6 mmol/L (3-11); BUN 23 mg/dL (7-18); CO2 27.4 mmol/L (21.0-32.0); CREATININE 1.4 mg/dL (0.55-1.02); Calcium 9.6 mg/dL (8.5-10.1); Chloride 106 mmol/L (98-107); Estimated GFR 38.03 (mL/min/1.73m2); Glucose 107 mg/dL (74-106); NT-proBNP 4062 pg/mL (<300); Potassium 3.5 mmol/L (3.5-5.1); Sodium 143 mmol/L (136-145)
== END 2023-07-11 15:09 | disposition home or self-care (01) ==
LOC: LBO 15:08
PROVIDERS: PCP Family Medicine; Visit Provider Physician Assistant Medical
DX: R06.00 Dyspnea, unspecified (principal)
CPT/HCPCS: 36415; 80048; 83880; 85025

== ENCOUNTER 2023-07-23 12:40 | Outpatient (REF) | payer OTHER, SELFPAY ==
[2023-07-23 16:00] LABS: BUN 22 mg/dL (7-18); CREATININE 1.5 mg/dL (0.55-1.02); Calcium 9.5 mg/dL (8.5-10.1); Chloride 106 mmol/L (98-107); Estimated GFR 35.01 (mL/min/1.73m2); Glucose 151 mg/dL (74-106); NT-proBNP 1766 pg/mL (<300); Potassium 5.1 mmol/L (3.5-5.1); Sodium 142 mmol/L (136-145)
== END 2023-07-23 12:41 | disposition home or self-care (01) ==
LOC: NCHCN 12:40
PROVIDERS: PCP Family Medicine; Visit Provider Family Medicine
DX: I50.9 Heart failure, unspecified (principal)
CPT/HCPCS: 80048; 83880

== ENCOUNTER 2023-07-25 01:39 | Outpatient (CLI) | payer OTHER, SELFPAY ==
[2023-07-25 10:31] LABS: HCT 40.2 % (36.0-46.0); HGB 12.9 g/dL (11.2-15.7); MCH 30.7 pg (27.0-33.0); MCHC 32.1 % (32.0-36.0); MCV 96 fL (80-95); MPV 10.7 fL (8.0-11.0); Platelet Count 153 10^3/uL (130-400); RDW 15.1 % (11.7-14.6); RDW-SD 53.4 fL; WBC 5.71 10^3/uL (4.4-10.8)
[2023-07-25 11:20] LABS: Anion Gap 7.3 mmol/L (3-11); BUN 17 mg/dL (7-18); CO2 26.7 mmol/L (21.0-32.0); CREATININE 1.3 mg/dL (0.55-1.02); Calcium 9.3 mg/dL (8.5-10.1); Chloride 106 mmol/L (98-107); Estimated GFR 41.57 (mL/min/1.73m2); Glucose 138 mg/dL (74-106); Potassium 4.5 mmol/L (3.5-5.1); Sodium 140 mmol/L (136-145)
== END 2023-07-25 01:40 | disposition home or self-care (01) ==
LOC: LBO 01:39
PROVIDERS: PCP Family Medicine; Visit Provider Student in an Organized Health Care Education/Training Program
DX: Z01.818 Encounter for other preprocedural examination
CPT/HCPCS: 36415; 80048; 85027; 86850; 86900; 86901; 86870

== ENCOUNTER 2023-07-29 08:23 | Inpatient (IN) | payer OTHER, SELFPAY ==
[2023-07-29] VITALS (10 sets, daily range): BP systolic 109–161; BP diastolic 45–66; PULSE 52–70; RESP 12–20; TEMP 35.8–36.5; O2SAT 92–95; BMI 39.4
[2023-07-29] MEDS: Acetaminophen 500 MG TAB 1000 MG PO ×3 (09:28→20:41)
[2023-07-29] MEDS: Celecoxib 200 MG CAP 400 MG PO (09:28)
[2023-07-29] MEDS: Lactated Ringers 1,000 ML 80 ML IV (09:29)
--- NOTE | 2023-07-29 12:00 | DI.RAD_ITS ---
Exam(s) XR HIP RT IN OR EXAM: XR HIP RT IN OR CLINICAL HISTORY: RIGHT HIP PAIN. TECHNIQUE: 2D and realtime digital imaging was performed. COMPARISON: CR XR HIP RT AP LAT ONLY from 04/11/2023 FINDINGS: Please see procedure note for details. Fluoro time: 29.5seconds RADIATION DOSE DELIVERED: Ka,r=6.1 mGy
--- NOTE | 2023-07-29 12:34 | ANES.PREOP_ITS ---
General Info Date of Service Date Performed: 07/29/23 Height: 5 ft 3 in Weight: 101 kg Body Mass Index (BMI): 39.4 Surgical Procedure: Operation Date: 07/29/23 13:50 Proposed Procedure Side Surgeon p Hip Total Hip Acetabular Revision Anterior Right Jose Alberto Galindo MD Meds Allergies and Home Medications Allergies Allergy/AdvReac Type Severity Reaction Status Date / Time tamoxifen Allergy Intermediate liver Verified 07/29/23 08:43 complications amlodipine AdvReac Intermediate leg pain Verified 07/29/23 08:43 atenolol AdvReac Intermediate leg pain Verified 07/29/23 08:43 doxazosin AdvReac Intermediate leg pain Verified 07/29/23 08:43 enalapril AdvReac Intermediate leg pain Verified 07/29/23 08:43 glipizide AdvReac Intermediate body aches Verified 07/29/23 08:43 lisinopril AdvReac Intermediate leg pain Verified 07/29/23 08:43 sertraline AdvReac Intermediate leg pain Verified 07/29/23 08:43 simvastatin [From Zocor] AdvReac Intermediate leg pain Verified 07/29/23 08:43 Dcizynp-NCD-QgU Reductase AdvReac Intermediate leg pains Verified 07/29/23 08:43 Inhibitor [Mqtcxff-Fth-Qiv Reductase Inhibitor] ticlopidine AdvReac Intermediate leg pain Verified 07/29/23 08:43 valsartan AdvReac Intermediate leg pain Verified 07/29/23 08:43 Home Medication Medication Instructions Recorded diltiazem HCl 300 mg 300 mg PO DAILY 02/29/16 capsule,extended release 24 hr (Cartia XT) escitalopram oxalate 20 mg tablet 20 mg PO DAILY 02/29/16 gabapentin 100 mg capsule 100 mg PO QHS 12/11/20 fluticasone propionate 50 2 spray intranasal DAILY PRN 04/25/21 mcg/actuation nasal spray,suspension (Allergy Relief (fluticasone)) levothyroxine 125 mcg tablet 150 mcg PO DAILY 06/06/21 meclizine 12.5 mg tablet See Rx Instructions PO DAILY PRN 10/25/21 aspirin 81 mg tablet,delayed 81 mg PO DAILY 06/19/22 release (Adult Aspirin Regimen) L. crispatus, gasseri, jensenii, 1 cap PO DIRECTED PRN 07/16/22 rhamnosus 5 billion cell capsule (AZO Complete Feminine Balance) furosemide 40 mg tablet 40 mg PO BID 02/07/23 rosuvastatin 20 mg tablet 20 mg PO DAILY 02/07/23 bupropion HCl 100 mg tablet 100 mg PO DAILY 05/20/23 clopidogrel 75 mg tablet 75 mg PO DAILY 05/20/23 empagliflozin 10 mg tablet 10 mg PO DAILY 05/20/23 (Jardiance) metoprolol succinate 25 mg 25 mg PO DAILY 05/20/23 tablet,extended release 24 hr pantoprazole 40 mg tablet,delayed 40 mg PO DAILY 05/20/23 release ferrous sulfate 325 mg (65 mg 650 mg PO Q OTHER DAY 07/08/23 iron) tablet (Feosol) acetaminophen 500 mg tablet 1,000 mg (2 x 500 mg) PO Q8H PRN 07/29/23 pain #90 tabs dexamethasone 4 mg tablet 4 mg PO DAILY #2 tabs 07/29/23 docusate sodium 100 mg capsule 100 mg PO BID #30 caps 07/29/23 (Colace) meloxicam 15 mg tablet 15 mg PO DAILY #30 tabs 07/29/23 oxycodone 5 mg tablet 5 mg PO Q6H PRN #12 tabs 07/29/23 Current Visit Medications: Current Medications Generic Name Dose Route Start Last Admin Trade Name Bobby PRN Reason Stop Dose Admin Acetaminophen 1,000 mg 07/29/23 06:00 07/29/23 09:28 Acetaminophen 500 Mg Tab PO 1,000 mg PREOP PAVITHRA Administration Celecoxib 400 mg 07/29/23 06:00 07/29/23 09:28 Celecoxib 200 Mg Cap PO 400 mg PREOP PAVITHRA Administration Tranexamic Acid 1,000 mg/ 60 mls @ 360 mls/hr 07/29/23 06:00 Sodium Chloride IV 07/29/23 23:59 PREOP PAVITHRA Ringer's Solution 1,000 mls @ 80 mls/hr 07/29/23 06:00 07/29/23 09:29 IV 07/29/23 23:59 80 mls/hr INFUSION PAVITHRA Administration Cefazolin Sodium/Dextrose 2 gm in 50 mls @ 100 mls/hr 07/29/23 06:00 Ancef Duplex IVPB 07/29/23 23:59 PREOP PAVITHRA IV Miscellaneous Supplies 1 each 07/29/23 06:00 Iv Access IV 07/29/23 23:59 DIRECTED PAVITHRA Sodium Chloride 0 ml 07/29/23 06:00 Normal Saline Flush 10 Ml Syr IV 07/29/23 23:59 PRN PRN Sodium Chloride 0 ml 07/29/23 06:00 Normal Saline 10 Ml Vial IJ 07/29/23 23:59 DIRECTED PRN Sterile Water 0 ml 07/29/23 06:00 Water,Injection,Sterile 10 Ml Vial IJ 07/29/23 23:59 DIRECTED PRN PFSH Active Problems Active Problems: Problem Status Onset Code Strain of right iliopsoas muscle S76.811A Imbalance R26.89 Displaced fracture of greater trochanter of right femur, subsequent encounter for closed fracture with nonunion S72.111K Strain of right iliopsoas muscle S76.911A Pain due to right hip joint prosthesis T84.84XA, Z96.641 Unstable angina I20.0 Dyspnea R06.00 Angina at rest I20.8 Coronary atherosclerosis I25.10 Spinal stenosis M48.00 Left knee DJD M17.12 Benign paroxysmal positional vertigo H81.10 Sleep apnea G47.30 Mitral regurgitation I34.0 Diastolic dysfunction I51.89 CKD (chronic kidney disease) N18.9 History of total right hip replacement 03/26/22 Z96.641 Hyperplastic colon polyp K63.5 Tubular adenoma of colon D12.6 Hematochezia K92.1 Anemia D64.9 Urinary tract infection N39.0 Melena K92.1 Lower GI bleed K92.2 Acute anemia D64.9 Acute UTI N39.0 A-fib I48.91 Dyspnea on exertion R06.00 Aortic stenosis I35.0 Left rotator cuff tear M75.102 Tendinitis of long head of biceps brachii of left shoulder M75.22 Hypertrophy of inferior nasal turbinate J34.3 Nasal obstruction J34.89 Peripheral vascular angioplasty status with implants and grafts Z95.820 E. coli UTI N39.0, B96.20 E coli bacteremia R78.81 CICI (acute kidney injury) N17.9 DVT prophylaxis Cirrhosis of liver not due to alcohol GERD (gastroesophageal reflux disease) K21.9 Renal artery stenosis I70.1 History of syncope Z87.898 SVT (supraventricular tachycardia) I47.1 Diabetes mellitus E11.9 Right flank pain R10.9 RUQ abdominal pain R10.11 Diarrhea 09/23/13 R19.7 Abdominal pain 09/23/13 R10.9 Medical History Medical History (Updated 07/29/23 @ 12:37 by Audrey Cook) History of small bowel obstruction Dizziness Difficult airway Per [facility] anesthesia notes she is a difficult airway. She has had previous intubations with VL grade 1 view. Also easy mask with 90 mm OPA, and successful LMA placement in the past. Shortness of breath Nasal septal deviation Sensorineural hearing loss of both ears Recurrent UTI (03/15/16) Type 2 diabetes mellitus with diabetic peripheral angiopathy without gangrene Gastro-esophageal reflux disease without esophagitis Hyperlipidemia STEVENS (nonalcoholic steatohepatitis) TERRY (obstructive sleep apnea) PVD (peripheral vascular disease) Dyslipidemia Hypertension Hypothyroidism Diabetes mellitus Syncope SVT (supraventricular tachycardia) F/U with Dr. Sweet Lymphoma Breast Cancer Medical History Comments:: Per [facility] anesthesia notes she is a difficult airway. She has had previous intubations with VL grade 1 view. Also easy mask with 90 mm OPA, and successful LMA placement in the past. Surgical History Surgical History History of heart assist device [employer] [facility] History of lumpectomy of right breast Hx of tonsillectomy History of total left hip replacement History of esophagogastroduodenoscopy (EGD) (~07/2021) History of colonoscopy (~07/2021) Rotator Cuff Repair Partial mastectomy with sentinal node Pt. states this is incorrect, she had a lumpectomy Nail removal (toe) Excision of neck mass Tobacco Smoking/Tobacco Use Status: Never Alcohol Alcohol Intake: never Substance Use Substance use: Never Substance use type: does not use Vital Signs and Lab Results Vital Signs Most Recent Vital Signs in EMR: Most Recent Vital Signs Temp Pulse Resp BP Pulse Ox 36.5 C 52 L 16 145/58 H 94 07/29/23 08:57 07/29/23 08:57 07/29/23 08:57 07/29/23 08:57 07/29/23 08:57 Point of Care Results Point of Care Results: Finger Stick Blood Glucose 151 07/29/23 09:40 Lab Results Blood Type / Crossmatch: Patient ABO/Rh A Positive 07/25/23 Antibody Screen POSITIVE 07/25/23 Complete Blood Count: White Blood Count 5.71 10^3/uL (4.4-10.8) 07/25/23 10:17 Red Blood Count 4.20 10^6/uL (3.93-5.22) 07/25/23 10:17 Hemoglobin 12.9 g/dL (11.2-15.7) 07/25/23 10:17 Hematocrit 40.2 % (36.0-46.0) 07/25/23 10:17 Platelet Count 153 10^3/uL (130-400) 07/25/23 10:17 Complete Metabolic Panel: Sodium 140 mmol/L (136-145) 07/25/23 10:17 Potassium 4.5 mmol/L (3.5-5.1) 07/25/23 10:17 Chloride 106 mmol/L (98-107) 07/25/23 10:17 Carbon Dioxide 26.7 mmol/L (21.0-32.0) 07/25/23 10:17 BUN 17 mg/dL (7-18) 07/25/23 10:17 Creatinine 1.3 mg/dL (0.55-1.02) H 07/25/23 10:17 Est GFR (CKD-EPI 2020) 41.57 (mL/min/1.73m2) 07/25/23 10:17 Calcium 9.3 mg/dL (8.5-10.1) 07/25/23 10:17 Glucose 138 mg/dL (74-106) H 07/25/23 10:17 Liver Function Panel: No Data to Display Coagulation Panel: No Data to Display Cardiac Panel: NT-Pro-B Natriuret Pep 1766 pg/mL (<300) H 07/23/23 Arterial Blood Gas: No Data to Display Venous Blood Gas: No Data to Display Pancreas Panel: No Data to Display Thyroid Panel: No Data to Display Infectious Disease: No Data to Display Blood Cultures: No Data to Display Toxicology Panel: No Data to Display Imaging and Studies Imaging and Studies Study information below may be from another EMR and interpreted by another provider. Please see original notes in EMR for more complete details. EKG Summary: 05/2012: sinus rhythm. Stress Test Summary: 01/12: 6 mets, exercise was stopped due to fatigue, no symptoms of ischemia, LVEF 63%, no WMA. Echocardiogram Summary: 06/13/23: EF 66%, LA moderately dilated, no regurgitation, Across prothesis: Peak/Mean 27/13 mmHg. Carotid Artery Summary:: 2019: Right <50%stenosis, Left <50% stenosis. left vertebral artery occlusion. 2021: Right 50%-79% stenosis, Left <50% stenosis. Left vertebral artery occlusion Pulmonary Function Summary: 05/15: normal. Anesthesia Assessment and Plan Anesthesia History Personal History: Other Family History: No Family History of Anesthesia Complications Exercise Tolerance Exercise Tolerance: Metabolic Equivalents>4 Pertinent Negatives Pertinent Negatives: No Symptoms of GERD Cardiac & Pulmonary Exam Cardiac Exam: Normal S1/S2 Heart Sounds (PCI to RCA 01/2023) Pulmonary Exam: Clear Bilateral Breath Sounds Implantable Cardiac Device Does patient have a Pacemaker or an ICD?: No Airway Exam Known Difficult Airway: Yes Mallampati Class: 2 Mouth Opening: Normal (> 3cm) Thyromental Distance: Less than 3 cm Neck Range of Motion: Limited ROM Neck Circumference: Thick Teeth Condition: Generalized Poor Dentition and Removable Dentures/Plates Upper ASA Classification ASA Score: ASA 3 Emergency Case?: No NPO Status NPO Status: NPO Clears >2 hours, Solids >8 hours Anesthesia Plan Resuscitation Status: Full Code Anesthesia Technique: General Anesthesia Airway Planned: Endotracheal Tube Monitors Used: Standard Monitors, Arterial Line and SedLine Preoperative Comments:: Extensive medical history reviewed with patient and chart reviewed completed per [facility] records. Patient noted to have ischemic stroke in February 2023 following TAVR that was medically managed. Patient reports no significant residual medical deficits. Patient was cleared per [facility] cardiology (07/22/23) for her hip surgery at [facility]. Discussed with patient her elevated risk for subsequent stroke given the interval of time from last ischemic stroke and after extensive risk discussion with patient and Dr. Galindo, patient understands risk and wishes to proceed with surgery. Patient was given the option to wait until the 6/month interval but expressed her debilitating hip pain and frequent falls. Patient verbalizes and understands risk and wishes to proceed today.
--- NOTE | 2023-07-29 12:37 | DSE_ITS ---
Date of service: 07/30/23 Time of Service: 14:32 DS: Diagnosis Discharge Diagnosis (1) Pain due to right hip joint prosthesis: Status: Resolved Discharge Plan Disposition Patient Disposition: Home Condition: Good Discharge Details Reason For Visit: Painful right EVAN Admit Date/Time: 07/29/23 08:23 Admit Provider: Jose Alberto Galindo Attending Provider: Jose Alberto Galindo Primary Care Provider: Jena Mitchell [place] [facility] Course Hospital Course: Patient was admitted to the medical/surgical floor following the procedure. The surgery was tolerated well without any notable medical, surgical, or anesthetic complications. Mobilization began postoperatively. She was voiding spontaneously. Vitals were stable. Physical therapy worked with the patient and was cleared for discharge home. No acute medical issues. Pain was controlled on oral regimen. Home Meds and New Rx's Prescriptions: New meloxicam 15 mg tablet 15 mg PO DAILY Qty: 30 1RF Rx Instructions: Take one tablet daily for pain and inflammation acetaminophen 500 mg tablet 1,000 mg PO Q8H PRN Qty: 90 0RF Rx Instructions: Take two tablets up to every 8 hours as needed for pain dexamethasone 4 mg tablet 4 mg PO DAILY Qty: 2 0RF Rx Instructions: Take one tablet once daily for two days docusate sodium [Colace] 100 mg capsule 100 mg PO BID Qty: 30 0RF oxycodone 5 mg tablet 5 mg PO Q6H PRNQty: 12 0RF Rx Instructions: Take one tablet up to every 6 hours as needed for severe postoperative pain Continued gabapentin 100 mg capsule 100 mg PO QHS ferrous sulfate [Feosol] 325 mg (65 mg iron) tablet 650 mg PO Q OTHER DAY Patient Comments: pt states not taking bupropion HCl 100 mg tablet 100 mg PO DAILY pantoprazole 40 mg tablet,delayed release (DR/EC) 40 mg PO DAILY Jardiance 10 mg tablet 10 mg PO DAILY metoprolol succinate 25 mg tablet extended release 24 hr 25 mg PO DAILY Patient Comments: pot states she cut s this pill in half. Dose is 12.5 mg clopidogrel 75 mg tablet 75 mg PO DAILY diltiazem HCl [Cartia XT] 300 MG capsule,extended release 24hr 300 mg PO DAILY escitalopram oxalate 20 MG tablet 20 mg PO DAILY fluticasone propionate [Allergy Relief (fluticasone)] 50 mcg/actuation spray,suspension 2 spray intranasal DAILY PRN Rx Instructions: administer into each nostril aspirin [Adult Aspirin Regimen] 81 mg tablet,delayed release (DR/EC) 81 mg PO DAILY Patient Comments: pt states not taking levothyroxine 125 mcg Tablet 150 mcg PO DAILY meclizine 12.5 mg tablet See Rx Instructions PO DAILY PRN Rx Instructions: take 1-2 tablets every 8 hours as needed for nausea. AZO Complete Feminine Balance 5 billion cell Capsule 1 cap PO DIRECTED PRN Patient Comments: pt states not taking furosemide 40 mg tablet 40 mg PO BID Patient Comments: Take 1 tablet by mouth twice a day am and 2 pm rosuvastatin 20 mg tablet 20 mg PO DAILY Patient Comments: TAKE ONE TABLET BY MOUTH EVERY DAY Discontinued acetaminophen 500 mg tablet 500 mg PO Q6H PRN (Reason: pain) Qty: 60 2RF Discharge Instructions Additional Instructions: Total Hip Revision Discharge Instructions Activity: The most important activity is to walk. You should try to take short walks a few times a day. You have no restrictions on movement or positioning, but do not try to force what you do. You will find some stiffness and weakness with hip flexion (lifting your knee). Do not try to strengthen this too early, continue to practice walking and stairs and this will come. - Outpatient physical therapy can be helpful to help return you to a normal gait and improve your flexibility and strength. This can start around 2 weeks. For some patients, it?s not necessary. Usually this is determined at the time of discharge or at the first post-operative visit. - You should wear the MICHAEL hose on both legs for 2 weeks. Dressing: Keep the surgical dressing in place for at least one week. After the first week it may be removed and replace with light gauze and tape or nothing. It may get wet after 3 days but avoid soaking the dressing. If it gets wet, just lightly pat dry. It is important to always keep some gauze between skin folds, especially when you are sitting. Spend some time with the wound exposed when you are lying flat as the incision does wrinkle onto itself. Medications: YOU ARE GOING TO HOLD MELOXICAM AND LASIX (FUROSEMIDE) UNTIL INSTRUCTED OTHERWISE BY DR. GALINDO AFTER LABS - Continue to take adequate water and fluids - You should take Tylenol and an anti-inflammatory Meloxicam as your primary pain control medications. If the Meloxicam is too expensive or not covered, please call the office for another alternative (Advil/Ibuprofen or Naproxen/Aleve). - You have been prescribed a stronger pain medication Oxycodone for breakthrough pain, take as needed as prescribed. - You have also been prescribed a stomach acid reduction agent Pantoprozole to help reduce stomach acid and reflux. - You have also been prescribed Decadron to help with post-operative nausea and pain. You will take this for two days starting tomorrow. - You will continue with your baseline anticoagulation of Plavix and Aspirin. - If you have constipation you should take Colace or Miralax (both [id number]). It takes most people 3-4 days to have a bowel movement. Follow-up: - LABS, 08/01/23, at 12pm. - Dr. Galindo, 08/11/23 at 1:45pm If you have any acute concerns or questions, please do not hesitate to contact the office at [phone]. You may contact Dr. Galindo with any questions after hours through the hospital at [phone] or on his cell phone at [phone]. 1. Encounter Date and Reason I certify that Silvia Vega was seen by Audrey Cook on 07/29/23 and that I had a hase-tf-camp encounter with this patient that meets the physician face to face encounter requirements. 2. Clinical Findings Supporting Skilled Need and Homebound Status I certify that home health services are medically necessary, include either intermittent mcc and/or physical/speech therapy, and that this patient is homebound in that absences from the home require considerable and taxing effort and are infrequent or of short duration, or are attributable to the need to receive medical care. [X] (a) Attached documentation from encounter provides clinical findings supporting skilled need and homebound status (including what assistance patient requires to leave the home). The encounter with the patient was in whole, or in part, for the following medical condition, which is the primary reason for home health care: Painful right EVAN Fpc: Physical Therapy: Silvia will benefit from physical therapy for gait, balance and lower extremity weakness following revision of right EVAN. They are weightbearing as tolerated without restrictions. Initial focus should be on home ambulation and range of motion. Speech Therapy: Homebound: Silvia is home bound; they are unable to leave their home without assistance. 3. Certification and Authentication I certify that I composed the above information based on my clinical judgment relating to this patient's medical condition and, if applicable, clinical findings communicated to me by the NPP or inpatient physician who performed the Home Health Referral. All further orders will be obtained through Dr. Galindo ([facility] Based Physician - Orthopedic Surgeon) Referrals: Jose Alberto Galindo MD [ [facility] STAFF PHYSICIAN] - Activity:: Activity as Tolerated Equipment/Supplies:: Walker Diet:: As Tolerated Discharge Orders Discharge Orders: Discharge Order (Routine); Ordered 07/30/23 Ordered By: Jose Alberto Galindo DS: Summary Time Spent with Patient providing and/or coordinating discharge services: Less than 30 minutes Status at Discharge Functional status at discharge: uses cane/walker Overall status at discharge: patient is progressing back to baseline Mental Status: mental status grossly normal Speech and Movement: speech and movement normal Mood: congruent mood Affect: normal affect Exam Psych Mental Status: mental status grossly normal Speech and Movement: speech and movement normal Mood: congruent mood Affect: normal affect DS: Data Vitals/I&O Vitals and I&O: Vital Signs Temperature 97.7 F 07/29/23 08:57 Pulse 52 L 07/29/23 08:57 Pulse Rhythm Regular 07/29/23 08:57 Respiratory Rate 16 07/29/23 08:57 Respiratory Depth Normal 07/29/23 08:57 Blood Pressure 145/58 H 07/29/23 08:57 Pulse Oximetry 94 07/29/23 08:57 Oxygen Delivery Method Room Air 07/29/23 08:57 Oxygen Flow Rate 0 07/29/23 08:57 Pain Level 4 07/29/23 09:46 Intake & Output 12/04/23 12/05/23 12/05/23 23:59 11:59 23:59 Weight 229 lb 0.012 oz 222 lb 10.67 oz Data Completed and Pending Labs on day of discharge: Labs from last 24 hours 07/29/23 11:50 Antibody Titer Pending Antibody ID Referred Pending [facility] All Active Problems Hyperkalemia (Acute) Loosening of prosthesis of right hip joint (Acute) s/p Revision R Acetabular Component (07/29/23) History of revision of total hip arthroplasty (Acute 07/29/23) Strain of right iliopsoas muscle (Acute) Imbalance (Acute) Displaced fracture of greater trochanter of right femur, subsequent encounter for closed fracture with nonunion (Acute) Strain of right iliopsoas muscle (Acute) Unstable angina (Acute) Dyspnea (Acute) Angina at rest (Acute) Coronary atherosclerosis (Acute) Spinal stenosis (Acute) Left knee DJD (Acute) Depo-Medrol injection: 06/24/2022 Benign paroxysmal positional vertigo (Acute) Sleep apnea (Acute) Mitral regurgitation (Chronic) Diastolic dysfunction (Acute) CKD (chronic kidney disease) (Chronic) 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 She has had previous intubations with VL grade 1 view. Also easy mask with 90 mm OPA, and successful LMA placement in the past. Shortness of breath Nasal septal deviation Sensorineural hearing loss of both ears Recurrent UTI (03/15/16) Type 2 diabetes mellitus with diabetic peripheral angiopathy without gangrene Gastro-esophageal reflux disease without esophagitis Hyperlipidemia STEVENS (nonalcoholic steatohepatitis) TERRY (obstructive sleep apnea) PVD (peripheral vascular disease) Dyslipidemia Hypertension Hypothyroidism Diabetes mellitus Syncope SVT (supraventricular tachycardia) F/U with Dr. Sweet Lymphoma Breast Cancer Surgical History History of heart assist device [employer] History of lumpectomy of right breast Hx of tonsillectomy History of total left hip replacement History of esophagogastroduodenoscopy (EGD) (~07/2021) History of colonoscopy (~07/2021) Rotator Cuff Repair Partial mastectomy with sentinal node Pt. states this is incorrect, she had a lumpectomy Nail removal (toe) Excision of neck mass Social History Smoking/Tobacco Use Status: Never Smoking risk assessment performed?: Yes Alcohol Intake: never Drug use: Never Substance use type: does not use Housing: house Do you feel safe at home: Yes Do you feel safe in your relationship?: Yes Female Reproductive History Menstrual Menopause type: natural
[2023-07-29] MEDS: ceFAZolin 2 GM/50 ML BAG IVPB (13:55)
--- NOTE | 2023-07-29 16:30 | ROE_ITS ---
Date of service: 07/29/23 Time of Service: 14:00 Operative Note Operative Note DATE OF PROCEDURE: 07/29/23 PRE-OP DIAGNOSIS: Painful Right Hip Replacement POST-OP DIAGNOSIS: other (Right Hip Acetabular Component Loosening) PROCEDURE: Right Anterior Hip Acetabular Revision with Dual Mobility Component SURGEON: Jose Alberto Galindo MARINE UNDERWRITER: Audrey Cook ANESTHESIA TYPE: Spinal Refer to Anesthesia Record ESTIMATED BLOOD LOSS: 450 PATHOLOGY: none sent TOURNIQUET TIME: 0 COMPLICATIONS: None Patient was transported to: PACU Patient's condition: stable Implants: 1. [employer] Redapt Acetabular Component, 58mm 2. [employer] Dual Mobility Acetabular Liner, [id number] 3. [employer] Dual Mobility Liner, [id number] 4. Depuy Altrx Ceramic Titainium Sleeve Revision Femoral Head, Size 36+5mm Indications: I have seen Cherry in clinic for symptoms of right hip pain following hip replacement. She had a greater trochanter fracture which she tolerated well but developed this anterior groin and thigh pain. This persisted and was eliminated with a diagnostic hip injection. Given these findings my suspicion is that she had a potentially loose S-type component as well as iliopsoas tendinitis. Given a failure of nonoperative options, I offered revision hip replacement, likely revision of the acetabular component along with an iliopsoas tenotomy. I discussed the technical details. I explained the risks of the procedure to include, but not limited to, bleeding, infection, pain, stiffness, fracture, damage to nerves and vessels, damage to muscles and tendons, recurrent loosening, instability, leg length inequality, need for repeat procedure, blood clot and cardiopulmonary demise. Despite these risks, Cherry elected to proceed. A long discussion was had between myself, Cherry, and anesthesia, Nadeen Valdes CRNA. Given her cardiac history and the stroke perpetuated from the PCI procedure she had increased risk of anesthetic complication. Despite this increased risk and recommendation to consider tertiary referral or delay for continued time, Cherry preferred to proceed despite this risk. Findings: Upon induction she had a notable hypotensive event. She responded very quickly to medications and from that point forward was stable. There is significant scarring seen throughout the entirety of the hip at all levels. There was notable synovitis within the hip itself. Interestingly, there is seem to be a ring of soft tissue at the base of the femoral head and the femoral head did not seem to be fully seated onto the trunnion. Furthermore, the acetabular component was grossly loose. And iliopsoas tenotomy was performed. Synovectomy of the hip was performed. A revision acetabular component with a dual mobility interface was placed. Procedure Description: Cherry was greeted in the preoperative holding area where the correct side was identified and marked. The consent was reviewed with the patient and signed. The history and physical was updated. All questions were answered. She was taken back to the operating room. An arterial line was placed by anesthesia for blood pressure monitoring during the case. A general anesthetic was then administered. During induction she had significant hypotension which responded well to medications. After this event she was otherwise stable. The feet were wrapped with cast padding and Coban and then placed into the boot liners and then into the boots. Care was taken to protect the skin and make sure the heels were fully down and the boots were stable. The patient was then positioned onto the HANA table. Both legs were held in a neutral position. SCDs were applied. The patient was then slid down onto a peroneal post. Prophylactic antibiotics in the form of Cefazolin were administered. 1g of Tranxemic Acid was given intravenously within 30 minutes of incision. The right leg was then prepped with Chloraprep and draped in a standard fashion. A second prep with Chloraprep was performed prior to placement of a shower-curtain type drape with Iodine impregnated skin protection. A timeout to confirm correct identity, side and site, procedure, allergies, anesthesia, and additional medical concerns was performed. The previous incision about the anterolateral hip was utilized. The skin and soft tissue was dissected sharply, through Elder?s fascia, and to the fascia of the TFL. With the fascia and superior border of the IT band identified, the fascia was incised with a new knife just above any perforators from the IT band. There is significant scarring within this layer. While the fascia was these identifiable, it was difficult to dissect the TFL muscle belly away from the fascia. This plane was developed and the TFL was dissected and moved laterally. However, it was very challenging to free up completely given his adhesion to the medial aspect of the fascial sheath. There was dense scarring between the capsule and the abductor tendons with an elevated tip of the greater trochanter was made normal anatomical placement of retractors challenging. The fibers of the rectus femoris tendon were identified and these were freed from the anterior capsule. A second cobra retractor was placed around the medial femoral neck. The TFL was further retracted laterally to show the deep fascia. This fascia was dissected sharply down onto the remnant femoral neck and the implant. A T-capsulotomy was then performed starting at the superior lateral acetabulum and moving distally to the intertrochanteric ridge. These capsular flaps were tagged with a No. 1 Ethibond and elevated from within. The capsular flaps were released to the shoulder of the lateral neck and to the lesser trochanter to give excellent visualization of the proximal femur. I continue to rotate the leg and release the capsule from the medial femur as well as release the iliopsoas tendon from the lesser trochanter. The hip was then dislocated. During dislocation it was noted that the head seem to be moving on top of the trunnion with a rim of soft tissue interposed between the ceramic head and the femoral neck. The head was removed. There was soft tissue seen within this space. Synovectomy was performed within the hip removing excess synovium and capsular tissue for visualization of the acetabular component. This was taken around the entirety of the rim of the acetabular component. Once visualization was obtained with a retractor over the anterior wall and a retractor of the posterior wall, the acetabular component was removed. The Robson acetabular extraction system was utilized. When I placed the first, shorter blade, extractor device in the cup it immediately went around the cup edge. Without the use of a mallet I was able to suspend this completely. As soon as I try to place the longer blade device on the cup the acetabular component was seen to be moving. Therefore I removed the polyethylene liner. A Neftaly was utilized to pull the acetabular component out. There was a fibrous rind underneath the acetabular component between it and the bone. There is no gross bony defects of her very small area anteriorly. Acetabular reaming began with a 52mm reamer. I utilized x-ray to make sure that I had substantial space but there was a medial space and therefore I advanced the SR component medially. However, there was notable expansion of this acetabular socket. I easing up to 56 mm reamer before I contacted the anterior posterior rims. I then reamed with a 57 mm reamer where is able to get some good fit. A 58mm [employer] Redapt acetabular component was selected. The acetabulum was reamed around the periphery with the selected acetabular size to prevent a rim fit. The deep tissues were irrigated. The majority of this fibrous material was removed with the reaming process but the cup was inspected to make sure there was no interposed soft tissue. The acetabular component was then impacted in a position of about 40-45 degrees of abduction and 15-20 degrees of anteversion, using the patient?s anatomy as the ultimate landmark. Fluoroscopy was used to confirm this. There was excellent collection card clerk of the acetabular component and the inserting handle was removed. A primary acetabular screw was placed into the ilium by drilling through one of the holes in the acetabular component. This was measured and an approrpriately sized screw was placed with excellent purchase. It was checked not to be proud. A second screw was placed in a similar fashion. 1 additional screw was also placed although all 3 screws had excellent bite. The dual mobility acetabular liner, [employer]hew [id number] polyethylene liner, was inserted and lined up. It seated easily and was then impacted in position. A portion of the leah-articular cocktail was then injected around the acetabulum into the capsule and periosteum. This cocktail consisted of 123mg of Ropivacaine, 0.25mg of Epinephrine, 0.04mg of Clonidine, and 15mg of Ketorolac, diluted to 50cc. The leg was rotated to 120 degrees. Any remaining medial capsule was released until the lesser trochanter was easily palpable. A retractor was placed medially. The lateral capsule was further released to allow exposure of the femoral component. The leg was dropped and the soft tissue retracted such that we had access to the trunnion. The trunnion was cleaned aggressively with a lap pad make sure there is no debris on the trunnion. On the back table, the DePuy Altrx ceramic head with titanium sleeve, 28+5 mm, was inserted into the [employer] dual mobility liner, 44 x 28 mm. This was then inserted onto the clean and dried trunnion and impacted. The leg was brought out of extension and external rotation and then reduced with traction and internal rotation. The leg was stable anteriorly in a position of 30 degrees of extension and 90 degrees of external rotation. Fluoroscopy was used to ensure there was no fracture and the stem was seated well. Leg lengths were checked with an AP pelvis and pelvic reference points. The periosteum and surrounding tissue was injected with remaining portion of the leah-articular cocktail. Final x-ray images were obtained with fluoroscopy to confirm adequate positioning and no intraoperative fracture. The deep tissues were thoroughly irrigated with Irrisept chlorhexidine solution. This was allowed to sit in the wound for 3 minutes before being thoroughly irrigated out with normal saline. The capsule was then reapproximated with the previously placed Ethibond sutures. The TFL fascia was finally closed with a No. 2 Stratafix, barbed suture. Deep tissues were then reapproximated with 0 Vicryl and a running 2-0 Vicryl. The skin was closed with a running 4-0 Monocryl in a subcuticular fashion. This was reinforced with skin glue. A Mepilex silver dressing was applied. At the end of the case, all counts were correct. Cherry was awakened from anesthesia, moving all 4 extremities and cooperating conversing. She was then transferred to the hospital bed without difficulty and suffering no apparent complication. Cherry has a good prognosis. Physical therapy will start today and without restrictions, weight-bearing as tolerated. Aspirin 81mg BID will be used for DVT prophylaxis.
[2023-07-29] MEDS: fentaNYL 100 MCG/2 ML VIAL IVP ×2 (16:40→17:04)
--- NOTE | 2023-07-29 18:27 | W.ANESPOSTOP ---
Postoperative Evaluation Date, Time and Location Date Performed: 07/29/23 Time Performed: 17:15 Patient Location: Med/Surg Vital Signs Most Recent Imported Vital Signs: Most Recent Vital Signs Temp Pulse Resp BP Pulse Ox 35.8 C L 61 15 109/57 L 94 07/29/23 17:39 07/29/23 17:39 07/29/23 17:39 07/29/23 17:39 07/29/23 17:39 Pain Score Most Recent Pain Score: Most Recent Pain Score Pain Level [Right Hip] 4 07/29/23 09:46 Pain Level 8 07/29/23 17:39 Assessment Mental Status: Awake (Alert & Oriented to Patient Baseline) Airway and Respiratory Function: Patent airway with normal (patient baseline) respiratory exam Cardiovascular Function: Hemodynamically Stable Hydration Status: Adequately Hydrated Nausea & Vomiting: No Nausea or Vomiting Pain: Pain is tolerable per patient Peripheral Nerve Block: Patient did not receive a nerve block
[2023-07-29] MEDS: oxyCODONE 5 MG TAB PO (18:33)
[2023-07-29] MEDS: ceFAZolin 1 GM/50 ML BAG IVPB (18:33)
[2023-07-29] MEDS: Celecoxib 200 MG CAP PO (20:41)
[2023-07-29] MEDS: Gabapentin 100 MG CAP PO (21:14)
[2023-07-30 00:18] VITALS: BP 122/65; PULSE 62; RESP 18; TEMP 35.9; O2SAT 96
[2023-07-30] MEDS: ceFAZolin 1 GM/50 ML BAG IVPB ×2 (02:06→10:35)
[2023-07-30 03:15] VITALS: BP 125/67; PULSE 79; RESP 18; TEMP 36.3; O2SAT 94
[2023-07-30] MEDS: oxyCODONE 5 MG TAB PO (03:16)
[2023-07-30] MEDS: Levothyroxine 125 MCG TAB PO (05:35)
[2023-07-30 06:54] VITALS: BP 127/68; PULSE 72; RESP 22; O2SAT 96
[2023-07-30 07:05] LABS: HCT 35.5 % (36.0-46.0); HGB 11.4 g/dL (11.2-15.7); MCH 30.5 pg (27.0-33.0); MCHC 32.1 % (32.0-36.0); MCV 95 fL (80-95); MPV 9.9 fL (8.0-11.0); Platelet Count 150 10^3/uL (130-400); RBC 3.74 10^6/uL (3.93-5.22); RDW 14.6 % (11.7-14.6); RDW-SD 50.5 fL; WBC 11.37 10^3/uL (4.4-10.8)
[2023-07-30 07:31] LABS: Anion Gap 6.7 mmol/L (3-11); BUN 28 mg/dL (7-18); CO2 25.3 mmol/L (21.0-32.0); CREATININE 1.8 mg/dL (0.55-1.02); Calcium 9.2 mg/dL (8.5-10.1); Chloride 104 mmol/L (98-107); Estimated GFR 28.13 (mL/min/1.73m2); Glucose 175 mg/dL (74-106); Sodium 136 mmol/L (136-145)
[2023-07-30 07:39] LABS: Potassium 6.1 mmol/L (3.5-5.1)
--- NOTE | 2023-07-30 08:00 | RT.EKG_ITS ---
APPROVED REPORT Exam: Resting ECG Reason for Exam: K+ 6.1 Patient Location: I HR:90 bpm ECG Measurements Heart Rate [address] [id number] P [id number] QRSd 96 QRS 71 QT 387 T 30 QTc 474 Conclusion Atrial fibrillation...? atrial activity Low voltage, extremity and precordial leads...extremity<0.5mV, precordial<1.0mV
[2023-07-30] MEDS: Escitalopram 20 MG TAB PO (08:13)
[2023-07-30] MEDS: buPROPion 100 MG TAB PO (08:13)
[2023-07-30] MEDS: Rosuvastatin 20 MG TAB PO (08:13)
[2023-07-30] MEDS: Celecoxib 200 MG CAP PO (08:13)
[2023-07-30] MEDS: Metoprolol CR 25 MG TABCR 12.5 MG PO (08:13)
[2023-07-30] MEDS: Aspirin E.C. 81 MG TABEC PO (08:13)
[2023-07-30] MEDS: Furosemide 40 MG TAB PO (08:14)
[2023-07-30] MEDS: Clopidogrel 75 MG TAB PO (08:14)
[2023-07-30] MEDS: Pantoprazole 40 MG TABCR PO (08:14)
[2023-07-30] MEDS: Acetaminophen 500 MG TAB 1000 MG PO ×2 (08:14→14:30)
[2023-07-30] MEDS: dilTIAZem CD 300 MG CAPCR PO (08:14)
[2023-07-30] MEDS: Empaglifozin 10 MG TAB PO (08:14)
[2023-07-30 08:31] VITALS: PULSE 88; O2SAT 94
[2023-07-30] MEDS: Normal Saline 1,000 ML 1000 ML IV (09:18)
--- NOTE | 2023-07-30 09:22 | W.PM.PROGNOT ---
Date of Service Date of service: 07/30/23 Time of Service: 09:05 Assessment and Plan Assessment and plan (1) A-fib: Status: Chronic Assessment and plan: Known chronic A-fib. Implantation of Watchman device last year. Chronically on Plavix and aspirin which has been restarted. (2) Diabetes mellitus: Status: Chronic Assessment and plan: Well-controlled on home medications of Jardiance primarily. She is hyperglycemic this morning which we will treat with insulin. I will also place her into a sliding scale as is normal to have some hyperglycemia after surgery. Goal is to limit peak glucose readings above 200. (3) Loosening of prosthesis of right hip joint: Status: Acute Assessment and plan: The right acetabular component was grossly loose yesterday in the operating room. A revision of the right acetabulum was completed with success. She has significant impairment with pain. She is to start physical therapy today. Weightbearing as tolerated with assistive devices. No restrictions. (4) Hyperkalemia: Status: Acute Assessment and plan: Cherry does have hyperkalemia this morning. She seems to run slightly high in the low fives upper fours at baseline. She has no symptoms today. However, will check an EKG which was reviewed and shows atrial fibrillation and potentially some mild peaking of the T waves. She has no ongoing symptoms. She has not had her morning Lasix as of yet which will help out with potassium levels. Is also possible she has a slight bit dry and I will give her a bolus of normal saline. I will recheck labs now and then later this afternoon. As long she is asymptomatic we will continue with recovery as planned. Subjective Subjective Interval history since last seen: Cherry is doing well. She denies any chest pain or shortness of breath. She denies any significant pain. She is able to mobilize last night. She no longer reports the pain in her right hip and groin which she had before. She denies significant numbness or tingling. Her morning labs did show a stable hemoglobin but a elevated potassium level 6.1 which is above her baseline of around 5. EKG was ordered which shows atrial fibrillation with may be slight peaking of T waves. Exam Narrative Exam Narrative: Sitting up in hospital bed. No acute distress. Alert orient x3. Evaluation the right hip has a clean dry and intact dressing. No significant ecchymosis. No pain with hip internal and external rotation. Sensation grossly intact to light touch over the femoral and site nerve distributions. She has intact ankle dorsiflexion, plantarflexion, EHL, FHL. Objective Last Vital Signs Temp 36.3 C L 07/30/23 03:15 Pulse 88 07/30/23 08:31 Resp 22 07/30/23 06:54 BP 127/68 07/30/23 06:54 Pulse Ox 94 07/30/23 08:31 Laboratory Results - last 24 hr 07/30/23 06:40 WBC 11.37 H RBC 3.74 L Hgb 11.4 Hct 35.5 L MCV 95 MCH 30.5 MCHC 32.1 RDW 14.6 Plt Count 150 MPV 9.9 Sodium 136 Potassium 6.1 H* Chloride 104 Carbon Dioxide 25.3 Anion Gap 6.7 BUN 28 H Creatinine 1.8 H Est GFR (CKD-EPI 2020) 28.13 Glucose 175 H Calcium 9.2 Time Spent with Patient Time Spent with Patient: <25 minutes Time was spent: obtaining and/or reviewing separately otained hiistory, ordering medications,tests, procedures, indepentently interpreting results, counseling the patient and care coordination
[2023-07-30 09:30] LABS: Anion Gap 9.2 mmol/L (3-11); BUN 29 mg/dL (7-18); CO2 22.8 mmol/L (21.0-32.0); CREATININE 1.9 mg/dL (0.55-1.02); Calcium 9.2 mg/dL (8.5-10.1); Chloride 104 mmol/L (98-107); Estimated GFR 26.36 (mL/min/1.73m2); Glucose 223 mg/dL (74-106); Magnesium 2.2 mg/dL (1.8-2.4); Potassium 5.9 mmol/L (3.5-5.1); Sodium 136 mmol/L (136-145)
[2023-07-30] MEDS: Insulin Aspart 100 UNITS/ML UNIT SC (10:28)
--- NOTE | 2023-07-30 11:45 | PT.INIE ---
PT Notes Visit Reasons: Painful right EVAN Physical Therapy Inpatient Initial Evaluation Date: 07/30/2023 Referring Doctor: DEV Gann PT Orders: PT CONSULT: S/P Ortho surgery Precautions: WBAT on right LE with AD. Patient Profile/Admitting Diagnosis: Cherry is a 77-year-old female with painful R EVAN prosthesis and R iliopsoas strain S/P right acetabular revision of R EVAN on postoperative day 1. She had her initial EVAN back on 03/26/2022. PMHX: All Active Problems (Updated 07/26/23 @ 08:56 by Jose Alberto Galindo MD) Strain of right iliopsoas muscle (Acute) Imbalance (Acute) Displaced fracture of greater trochanter of right femur, subsequent encounter for closed fracture with nonunion (Acute) Strain of right iliopsoas muscle (Acute) Pain due to right hip joint prosthesis (Acute) Unstable angina (Acute) Dyspnea (Acute) Angina at rest (Acute) Coronary atherosclerosis (Acute) Spinal stenosis (Acute) Left knee DJD (Acute) Depo-Medrol injection: 06/24/2022 Benign paroxysmal positional vertigo (Acute) Sleep apnea (Acute) Mitral regurgitation (Chronic) Diastolic dysfunction (Acute) CKD (chronic kidney disease) (Chronic) 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 coli UTI (Acute) Peripheral vascular angioplasty status with implants and grafts (Acute) Nasal obstruction (Chronic) Hypertrophy of inferior nasal turbinate (Chronic) Tendinitis of long head of biceps brachii of left shoulder (Acute) Left rotator cuff tear (Acute) Aortic stenosis (Chronic) Dyspnea on exertion (Acute) A-fib (Chronic) Acute UTI (Acute) Acute anemia (Acute) Lower GI bleed (Acute) Melena (Acute) Urinary tract infection (Acute) Anemia (Chronic) Hematochezia (Acute) Tubular adenoma of colon (Acute) Hyperplastic colon polyp (Acute) Medical History History of small bowel obstruction Dizziness Difficult airway [place] [facility] [place] she is a difficult airway. She has had previous intubations with VL grade 1 view. Also easy mask with 90 mm OPA, and successful LMA placement in the past. Shortness of breath Nasal septal deviation Sensorineural hearing loss of both ears Recurrent UTI (03/15/16) Type 2 diabetes mellitus with diabetic peripheral angiopathy without gangrene Gastro-esophageal reflux disease without esophagitis Hyperlipidemia STEVENS (nonalcoholic steatohepatitis) TERRY (obstructive sleep apnea) PVD (peripheral vascular disease) Dyslipidemia Hypertension Hypothyroidism Diabetes mellitus Syncope SVT (supraventricular tachycardia) F/U with Dr. Sweet Lymphoma Breast Cancer Surgical History Hx of tonsillectomy History of total left hip replacement History of esophagogastroduodenoscopy (EGD) (~07/2021) History of colonoscopy (~07/2021) Rotator Cuff Repair Partial mastectomy with sentinal node Pt. states this is incorrect, she had a lumpectomy Nail removal (toe) Excision of neck mass Social History/Home Situation: Lives alone in a private home with no steps to enter. Independent with all aspects of ADLs prior to surgery has 2 four-wheel walkers at home. Equipment Owned/DME: 2 4WWs Subjective: Agreeable to PT consult. Pleasant and cooperative. Reports 0/10 pain in the right hip with movement. Denies headache, chest pain, and dizziness throughout session. Objective: General Observation: Mepilex Ag over surgical incision. TEDS in B legs readjusted to prevent undue presseure in proximal legs. In NAD. Mental Status: Alert and oriented x4 Pain: 0/10 in the right hip ROM: Right Lower Extremity: Hip flexion WFL. Hip abduction WFL. Knee flexion WFL. Ankle dorsiflexion WFL. Ankle plantarflexion WFL. Left Lower Extremity: Hip flexion WFL. Hip abduction WFL. Knee flexion WFL. Ankle dorsiflexion WFL. Ankle plantarflexion WFL. Strength: Right Lower Extremity: Hip flexors 4/5. Hip abductors 4/5. Knee flexors 5/5. Knee extensors 5/5. Ankle dorsiflexors 5/5. Ankle plantarflexors 5/5. Left Lower Extremity:Hip flexors 5/5. Hip abductors 5/5. Knee flexors 5/5. Knee extensors 5/5. Ankle dorsiflexors 5/5. Ankle plantarflexors 5/5. Sensation: Intact as to pain and light pressure in bilateral lower extremities. Bed Mobility/Transfers: Supine to sit standby assist Sit to stand standby assist Stand to sit standby assist Bed to chair standby assist Gait: Tolerated level surface ambulation 200 feet using front-wheeled walker with step through gait pattern requiring only standby assist. Minimla shortness of breath noted that resolved with rest. No loss of balance. No report of increased pain. Balance: Static Sitting: Normal Dynamic Sitting: Normal Static Standing: Fair Dynamic Standing: Fair Special Tests: Mobility Limitations Standardized Measure [facility] AM-PAC 6 clicks Basic Mobility Inpatient Short Form: Raw Score: 23 CMS Score:11% deficit Informed Consent/Education: Patient was instructed in purpose of PT consult. Packet containing EVAN exercise protocol will be given by SLIM Issa before patient leaves today. Education and training on initial set of exercises that can be done at home have been completed with patient. Assessment: Patient requires the use of a front-wheeled walker for all mobility ADL performance to maximize independence and reduce fall risk at this time. Patient presents with clinical signs and symptoms consistent with current/admitting diagnoses that have resulted to mobility limitations, gait instability, generalized weakness, and impairment of motor control as demonstrated by the following impairment level findings: 1. Decreased strength to right hip major muscle groups 2. Impaired standing balance Impairments are contributing to the following functional limitations: 1. Inability to safely ambulate without assistive device 2. Increase completion time for mobility ADL performance 3. Increased fall risk Patient is assessed as a 78046 moderate complexity based on the following: History: 77-year-old female with impairment level findings, functional limitations, and past medical history as indicated above Examination: Demonstrable impairment in strength, balance, and mobility level with underlying impairments and functional limitations as documented above Presentation: Evolving Decision Makin moderate complexity Goals: N/A. PT evaluation and 1-2 treatment sessions only for functional mobility training using recommended AD and for HEP instruction. Plan of Care/Treatment Plan: N/A. PT evaluation and 1-2 treatment session only for functional mobility training using recommended AD and for HEP instruction. DISCHARGE RECOMMENDATIONS: [] Home with no services [] [] Home with services [specify] [X] Home with outpatient PT. Home when medically cleared by orthopedic surgeon. Will benefit from outpatient physical therapy services in order to facilitate return to independent community ambulation and ADL performance without an assistive device. [] SNF for continued rehabilitation [] [] Nursing Home Care [] [] SNF versus LTC based on ability to participate and progress [] TREATMENT CODE/TIME: 21443 x 20 minutes, 22243 x 10 minutes beginning at 11:45 AM. Thank you for the opportunity to participate in the care of this patient. Thank you for the opportunity to participate in the care of this patient. Pau Reynaga PT, DPT, CLT [facility] [place], [place]
--- NOTE | 2023-07-30 11:54 | RESPIRATORY ---
Inspected patient's home CPAP unit that was in the bag and not used last night. Pt has a [employer] CPAP 10-20 with no O2 bleed-in. DME: [place]. Patient advised her sleep doctor was looking into why her DME hadn't been sending her new supplies for the last year.
[2023-07-30] MEDS: Insulin Aspart 300 UNITS/3 ML PEN SC (12:21)
[2023-07-30 13:29] LABS: Anion Gap 10.4 mmol/L (3-11); BUN 32 mg/dL (7-18); CO2 21.6 mmol/L (21.0-32.0); Calcium 9.1 mg/dL (8.5-10.1); Chloride 103 mmol/L (98-107); Estimated GFR 24.79 (mL/min/1.73m2); Glucose 224 mg/dL (74-106); Potassium 5.4 mmol/L (3.5-5.1); Sodium 135 mmol/L (136-145)
--- NOTE | 2023-07-30 13:33 | PTTR_ITS ---
Date of service: 07/30/23 Time of Service: 13:08 PT Notes Visit Reasons: Painful right EVAN Inpatient Physical Therapy Treatment Note [facility] Date: 07/30/23 PRECAUTIONS: Fall, standard, activity as tolerated SUBJECTIVE: Patient reports feeling pretty good, eager to participate, states that she knows the protocol. OBJECTIVE: Sitting in recliner, agreeable to therapy. ? PAIN: discomfort reported, pain denied. VITALS: monitored by nursing staff. ? ? BED MOBILITY/TRANSFERS? Rolling L/R: not assessed Supine-sit: not assessed ? Sit-supine: not assessed ? Sit-stand: independent ? Stand-sit: independent ? Bed-Chair: independent ? Chair-bed: independent ? Therapeutic Exercises ([id number]): Direct one-on-one instruction in therapeutic exercises to develop strength, endurance, range of motion and flexibility. ? Exercises: HEP issued and reviewed as established by DPT Pau Reynaga. Exercises as follows: * Glute sets 5 second hold x10 * ankle pumps x10 * heel slides x10 * seated marching x10 * seated LAQ x10 Ambulation ? Assistive Device: FWW? Weight bearing: WBAT RLE with AD Assist: SBA ? Distance:? 300 feet? Deviation: Gait largely unremarkable. Patient demonstrates symmetrical step length, adequate toe off, adequate step height and length. ? Provided skilled instruction in proper exercise performance Provided skilled manual cues to facilitate proper muscle recruitment and/or form. ASSESSMENT:? Patient tolerates therapy well, no SOB, no LOB, no c/o increased pain or fatigue from treatment session. PLAN: Continue global strengthening per plan of care until patient is medically cleared for discharge. TREATMENT CODE/TIME: 22 minutes beginning at 13:08
== END 2023-07-30 15:20 | disposition home or self-care (01) | DRG 467 ==
LOC: PDS 12:41 → MS 17:22
PROVIDERS: Admitting Provider Student in an Organized Health Care Education/Training Program; PCP Family Medicine; Visit Provider Student in an Organized Health Care Education/Training Program
PROC: 0SRA0JA Replacement of Right Hip Joint, Acetabular Surface with Synthetic Substitute, Uncemented, Open Approach (ICD-10-PCS; CPT 27137; principal; 2023-07-29 13:30)
DX: I48.20 Chronic atrial fibrillation, unspecified; T84.84XA Pain due to internal orthopedic prosthetic devices, implants and grafts, initial encounter; E87.5 Hyperkalemia; T84.030A Mechanical loosening of internal right hip prosthetic joint, initial encounter; Z95.818 Presence of other cardiac implants and grafts; E11.65 Type 2 diabetes mellitus with hyperglycemia
CPT/HCPCS: 27137; 36415; 80048; 85027; 97110; 97162; 97530; 73501; 83735; 86860; 86870; 86880; 86885; 86886; 93005; 93010; 94760; J0171; J0690; J1100; J1815; J2001; J2371; J2405; J2704; J3010

== ENCOUNTER 2023-08-01 03:15 | Outpatient (CLI) | payer OTHER, SELFPAY ==
[2023-08-01 12:12] LABS: HCT 34.5 % (36.0-46.0); HGB 11.2 g/dL (11.2-15.7); MCHC 32.5 % (32.0-36.0); MCV 96 fL (80-95); MPV 10.3 fL (8.0-11.0); Platelet Count 152 10^3/uL (130-400); RBC 3.61 10^6/uL (3.93-5.22); RDW 14.9 % (11.7-14.6); RDW-SD 52.6 fL
[2023-08-01 12:38] LABS: BUN 30 mg/dL (7-18); CO2 24.3 mmol/L (21.0-32.0); CREATININE 1.4 mg/dL (0.55-1.02); Chloride 106 mmol/L (98-107); Estimated GFR 38.03 (mL/min/1.73m2); Glucose 180 mg/dL (74-106)
[2023-08-01 12:44] LABS: Abs Immature Grans 0.05 10^3/uL (0.0-0.06); Absolute Basophil Count 0.04 10^3/uL (0.0-0.2); Absolute Eosinophil Count 0.27 10^3/uL (0.0-0.7); Absolute Lymphocyte Count 1.26 10^3/uL (1.2-3.4); Absolute Neutrophil Count 4.81 10^3/uL (1.2-6.7); Anion Gap 7.7 mmol/L (3-11); Basophils % 0.5; Eosinophils % 3.6; Immature Grans % 0.7; Monocytes % 13.5; Neutrophils % 64.7; Sodium 138 mmol/L (136-145)
[2023-08-01 12:45] LABS: Potassium 4.4 mmol/L (3.5-5.1)
[2023-08-01 13:09] LABS: ALT 23 U/L (14-59); AST 62 U/L (15-37); Alkaline Phosphatase 243 U/L (46-116); Bilirubin, Total 0.8 mg/dL (0.2-1.0); Ferritin 130 ng/mL (8-252); LDH 276 U/L (81-234); Total Protein 6.5 g/dL (6.4-8.2)
== END 2023-08-01 03:16 | disposition home or self-care (01) ==
LOC: LBO 03:16
PROVIDERS: Nurse Practitioner Adult Health; PCP Family Medicine; Visit Provider Student in an Organized Health Care Education/Training Program
DX: E11.9 Type 2 diabetes mellitus without complications; N18.9 Chronic kidney disease, unspecified
CPT/HCPCS: 36415; 80048; 80053; 85027; 82728; 83036; 83615; 85025

== ENCOUNTER 2023-08-11 16:01 | Outpatient (CLI) | payer OTHER, SELFPAY ==
--- NOTE | 2023-08-11 14:00 | DI.RAD_ITS ---
Exam(s) XR HIP RT AP LAT ONLY EXAM: XR HIP RT AP LAT ONLY CLINICAL HISTORY: s/p surgery. TECHNIQUE: 2D digital imaging was performed. Two images were obtained. AP and lateral views were ob tained. COMPARISON: CR XR HIP RT AP LAT ONLY from 04/11/2023 RF RF JOINT INJECTION FLUORO GUID from 05/01/2023 XA XR HIP RT IN OR from 07/29/2023 FINDINGS: BONES: There are stable post operative changes of a right total hip replacement present. No fracture or dislocation. The osseous fragment lateral to the acetabular component is unchanged. JOINTS: The orthopedic hardware is in good position. No evidence of hardware loosening. SOFT TISSUE: Atherosclerosis. IMPRESSION: Stable postoperative changes. DATA REPOSITORY: RADIATION DOSE DELIVERED:
== END 2023-08-11 16:02 | disposition home or self-care (01) ==
LOC: DIORS 16:01
PROVIDERS: PCP Family Medicine; Referring Provider Family Medicine; Visit Provider Student in an Organized Health Care Education/Training Program
DX: Z47.1 Aftercare following joint replacement surgery; Z96.641 Presence of right artificial hip joint
CPT/HCPCS: 73502

== ENCOUNTER 2023-08-13 00:40 | Observation (INO) | payer OTHER, SELFPAY ==
[2023-08-13] VITALS (59 sets, daily range): BP systolic 121–245; BP diastolic 46–98; PULSE 67–99; RESP 10–40; TEMP 36.1–37; O2SAT 85–98
--- NOTE | 2023-08-13 | DI.US_ITS ---
Exam(s) US EXTREMITY VENOUS BI EXAM: US EXTREMITY VENOUS BI CLINICAL HISTORY: Acute PE TECHNIQUE: Grayscale, color, and doppler imaging of the deep venous system of both lower extremities was performed. COMPARISON: US POCUS EXAM from 07/29/2023 FINDINGS: There is no evidence of intraluminal thrombus and there is normal compression and augmentation demons trated within the common femoral veins, femoral veins, and popliteal veins of both lower extremities. In the calves the interrogated veins also exhibit normal compression/ augmentation properties. The greater saphenous veins also appear patent as do the saphenofemoral junctions bilaterally.. IMPRESSION: 1. No ultrasound evidence of DVT in either lower extremity. DATA REPOSITORY:
--- NOTE | 2023-08-13 00:30 | RT.EKG_ITS ---
APPROVED REPORT Exam: Resting ECG Reason for Exam: SOB Patient Location: E HR:88 bpm ECG Measurements Heart Rate 88 AX[address] ME [id number] P [id number] QRSd 81 QRS 82 QT 393 T 60 QTc 478 Conclusion Atrial fibrillation...V-rate 65-109, irreg A-activity Low voltage, extremity and precordial leads...extremity<0.5mV, precordial<1.0mV afib, normal axis, normal intervals, non ischemic
--- NOTE | 2023-08-13 00:45 | DI.CT_ITS ---
Exam(s) CT CHEST PE CTA EXAM: CT CHEST PE CTA CLINICAL HISTORY: recent hip surgery, sob, hypoxia. TECHNIQUE: Imaging Protocol: CT angiography of the chest was performed using pulmonary embolus jeanne col. Multi planar reconstructions were performed. CONTRAST MATERIAL: Intravenous: Omnipaque 350 Contrast volume: 100 cc COMPARISON: CT CT CHEST W from 10/30/2021 FINDINGS: CHEST: PULMONARY ARTERIES: There are intraluminal filling defects consistent with pulmonary emboli within th e left lower lobe pulmonary arteries. No intraluminal filling defects seen elsewhere in the left jaime g. No emboli seen in the opposite-right lung. There are moderate size bilateral equal size pleural effusions. Appearance of the lungs is somewhat limited by motion artifact but there is probably an e lement of pulmonary edema here. There are no focal findings in the trachea and mainstem bronchi. LUNGS: As above. MEDIASTINUM: There is no hilar nor mediastinal adenopathy. CARDIAC: There is an aortic valve TAVR. Diameter of the ascending thoracic aorta is upper normal. N o dissection. Atherosclerotic descending thoracic aorta noted. No pericardial effusion. Ventricula r ratio is estimated at 1/1. No reflux of contrast seen into the intrahepatic IVC. PARTIALLY VISUALIZED UPPERMOST ABDOMEN: Cirrhotic appearing liver. No obvious ascites. OSSEOUS: No significant osseous lesions.. IMPRESSION: 1. This study is positive 4 pulmonary emboli in segmental arteries of the left lower lobe..No pleural effusions. 2. There are moderate size bilateral pleural effusions and an aortic valve TAVR. This together with findings in the lung mcclendon has appearance of pulmonary edema in addition to the left lung pulmonary emboli. First read by [facility]. RADIATION DOSE DELIVERED: Total DLP DATA REPOSITORY: All CT scans at this facility are submitted to the National Radiology Data Registry (NRDR) Dose Index Registry (DIR) with the [employer] (A[employer]). RADIATION OPTIMIZATION: All CT scans at this facility use at least one of these dose optimization te chniques: automated exposure control; mA and/or kV adjustment per patient size (includes targeted exa ms where dose is matched to clinical indication); or iterative reconstruction.
--- NOTE | 2023-08-13 00:56 | ED.GENADUL_ITS ---
Discharge Plan Disposition Patient Disposition: Admit to [facility] Condition: Stable Discharge Details Chief Complaint: SOB Clinical Impression: Pleural effusion, Pulmonary edema, Pulmonary embolism, Hypertension Primary Care Provider: Jena Mitchell ED Provider: Yan Redding Home Meds and New Rx's Prescriptions: No Action gabapentin 100 mg capsule 100 mg PO QHS Hold Instructions: has not getting this medication from the pharmacy ferrous sulfate [Feosol] 325 mg (65 mg iron) tablet 650 mg PO Q OTHER DAY Patient Comments: pt states not taking bupropion HCl 100 mg tablet 100 mg PO DAILY pantoprazole 40 mg tablet,delayed release (DR/EC) 40 mg PO DAILY Jardiance 10 mg tablet 10 mg PO DAILY Hold Instructions: patient state stopped taking before surgery metoprolol succinate 25 mg tablet extended release 24 hr 25 mg PO DAILY Patient Comments: pot states she cut s this pill in half. Dose is 12.5 mg clopidogrel 75 mg tablet 75 mg PO DAILY diltiazem HCl [Cartia XT] 300 MG capsule,extended release 24hr 300 mg PO DAILY escitalopram oxalate 20 MG tablet 20 mg PO DAILY fluticasone propionate [Allergy Relief (fluticasone)] 50 mcg/actuation spray,suspension 2 spray intranasal DAILY PRN Rx Instructions: administer into each nostril aspirin [Adult Aspirin Regimen] 81 mg tablet,delayed release (DR/EC) 81 mg PO DAILY Patient Comments: pt states not taking levothyroxine 125 mcg Tablet 150 mcg PO DAILY meclizine 12.5 mg tablet See Rx Instructions PO DAILY PRN Rx Instructions: take 1-2 tablets every 8 hours as needed for nausea. AZO Complete Feminine Balance 5 billion cell Capsule 1 cap PO DIRECTED PRN Patient Comments: pt states not taking furosemide 40 mg tablet 40 mg PO BID Patient Comments: Take 1 tablet by mouth twice a day am and 2 pm rosuvastatin 20 mg tablet 20 mg PO DAILY Patient Comments: TAKE ONE TABLET BY MOUTH EVERY DAY meloxicam 15 mg tablet 15 mg PO DAILY Qty: 30 1RF Rx Instructions: Take one tablet daily for pain and inflammation acetaminophen 500 mg tablet 1,000 mg PO Q8H PRN Qty: 90 0RF Rx Instructions: Take two tablets up to every 8 hours as needed for pain docusate sodium [Colace] 100 mg capsule 100 mg PO BID Qty: 30 0RF oxycodone 5 mg tablet 5 mg PO Q6H PRNQty: 12 0RF Rx Instructions: Take one tablet up to every 6 hours as needed for severe postoperative pain Medical Decision Making 78-year-old female recent right hip replacement, history of valvular replacement, history of cardiac stents, diabetes presents with shortness of breath over the last day, noted to be hypoxic to the 80s on room air placed on nasal cannula now saturating in the 90s, tachypneic speaking in short sentences, lungs clear without appreciable wheeze or rhonchi or rails, patient noted to be hypertensive with edema to bilateral ankles, must consider PE versus pulmonary edema versus ACS lower suspicion for aortic pathology was also consider pneumonia versus pleural effusion, will obtain screening labs stat CT, EKG, consider Lasix and antihypertensive agent, disposition pending reassessment and results 2: 24 patient feeling much better after nitro and Lasix administration. Starting to put out good urine. CT showing mild pulmonary edema and pleural effusion, small left lower segmental PE; discussed case with radiologist no radiographic evidence of heart strain, troponin negative, patient has chronically elevated BNP; was on Eliquis for A-fib was taken off after Watchman device was placed. I have been able to down titrate patient's oxygen requirement to less than 1 L nasal cannula. As she diuresis and blood pressure improves we will continue to wean off of O2. Given hemodynamic stability and improvement of respiratory status patient may be a candidate for oral anticoagulation at home with close follow-up. Likely component of fluid overload state in the setting of holding her Lasix for the last couple of weeks. 3: 22 given persistent oxygen requirement ranging between 1 to 2 L/min nasal cannula patient be admitted for further diuresis, will administer first dose of Lovenox. HPI General Date/Time Provider Initiated Documentation: 08/13/23 00:45 . HPI Narrative: 78-year-old female history of recent right hip replacement, valvular replacement in the past, cardiac stents, diabetes, presents with shortness of breath over the last day with pain when breathing. Denies history of thromboembolic disease. Endorses possible asthma in the past, no history of COPD no history of smoking. Related Data Home Medications Medication Instructions Recorded Confirmed diltiazem HCl 300 mg 300 mg PO DAILY 02/29/16 08/13/23 capsule,extended release 24 hr (Cartia XT) escitalopram oxalate 20 mg tablet 20 mg PO DAILY 02/29/16 08/13/23 gabapentin 100 mg capsule 100 mg PO QHS 12/11/20 08/13/23 fluticasone propionate 50 2 spray intranasal DAILY PRN 04/25/21 08/13/23 mcg/actuation nasal spray,suspension (Allergy Relief (fluticasone)) levothyroxine 125 mcg tablet 150 mcg PO DAILY 06/06/21 08/13/23 meclizine 12.5 mg tablet See Rx Instructions PO DAILY PRN 10/25/21 08/13/23 aspirin 81 mg tablet,delayed 81 mg PO DAILY 06/19/22 08/13/23 release (Adult Aspirin Regimen) L. crispatus, gasseri, jensenii, 1 cap PO DIRECTED PRN 07/16/22 08/13/23 rhamnosus 5 billion cell capsule (AZO Complete Feminine Balance) furosemide 40 mg tablet 40 mg PO BID 02/07/23 08/13/23 rosuvastatin 20 mg tablet 20 mg PO DAILY 02/07/23 08/13/23 bupropion HCl 100 mg tablet 100 mg PO DAILY 05/20/23 08/13/23 clopidogrel 75 mg tablet 75 mg PO DAILY 05/20/23 08/13/23 empagliflozin 10 mg tablet 10 mg PO DAILY 05/20/23 08/13/23 (Jardiance) metoprolol succinate 25 mg 25 mg PO DAILY 05/20/23 08/13/23 tablet,extended release 24 hr pantoprazole 40 mg tablet,delayed 40 mg PO DAILY 05/20/23 08/13/23 release ferrous sulfate 325 mg (65 mg 650 mg PO Q OTHER DAY 07/08/23 08/13/23 iron) tablet (Feosol) acetaminophen 500 mg tablet 1,000 mg (2 x 500 mg) PO Q8H PRN 07/29/23 08/13/23 pain #90 tabs docusate sodium 100 mg capsule 100 mg PO BID #30 caps 07/29/23 08/13/23 (Colace) meloxicam 15 mg tablet 15 mg PO DAILY #30 tabs 07/29/23 08/13/23 oxycodone 5 mg tablet 5 mg PO Q6H PRN #12 tabs 07/29/23 08/13/23 Previous Rx's Medication Instructions Recorded acetaminophen 500 mg tablet 1,000 mg (2 x 500 mg) PO Q8H PRN 07/29/23 pain #90 tabs docusate sodium 100 mg capsule 100 mg PO BID #30 caps 07/29/23 (Colace) meloxicam 15 mg tablet 15 mg PO DAILY #30 tabs 07/29/23 oxycodone 5 mg tablet 5 mg PO Q6H PRN #12 tabs 07/29/23 Allergies Allergy/AdvReac Type Severity Reaction Status Date / Time tamoxifen Allergy Intermediate liver Verified 08/13/23 01:48 complications amlodipine AdvReac Intermediate leg pain Verified 08/13/23 01:48 atenolol AdvReac Intermediate leg pain Verified 08/13/23 01:48 doxazosin AdvReac Intermediate leg pain Verified 08/13/23 01:48 enalapril AdvReac Intermediate leg pain Verified 08/13/23 01:48 glipizide AdvReac Intermediate body aches Verified 08/13/23 01:48 lisinopril AdvReac Intermediate leg pain Verified 08/13/23 01:48 sertraline AdvReac Intermediate leg pain Verified 08/13/23 01:48 simvastatin [From Zocor] AdvReac Intermediate leg pain Verified 08/13/23 01:48 Vyplfcs-ZHF-VoR Reductase AdvReac Intermediate leg pains Verified 08/13/23 01:48 Inhibitor [Fyqcpnr-Qhp-Kbm Reductase Inhibitor] ticlopidine AdvReac Intermediate leg pain Verified 08/13/23 01:48 valsartan AdvReac Intermediate leg pain Verified 08/13/23 01:48 General Stated Complaint: SOB JUANITA: 3 Review of Systems Narrative: Review of Systems Constitutional: negative Eyes: negative ENT: negative Cardiovascular: negative Respiratory: Shortness of breath, pain when breathing Gastrointestinal: negative : negative Musculoskeletal: negative Skin: negative Neurologic: negative Psych: negative PFSH All Active Problems (Updated 08/13/23 @ 03:23 by Yan Redding MD) Hypertension (Chronic) Pulmonary embolism (Chronic) Pulmonary edema (Acute) Pleural effusion (Acute) Loosening of prosthesis of right hip joint (Acute) s/p Revision R Acetabular Component (07/29/23) History of revision of total hip arthroplasty (Acute 07/29/23) Strain of right iliopsoas muscle (Acute) Imbalance (Acute) Displaced fracture of greater trochanter of right femur, subsequent encounter f or closed fracture with nonunion (Acute) Strain of right iliopsoas muscle (Acute) Unstable angina (Acute) Dyspnea (Acute) Angina at rest (Acute) Coronary atherosclerosis (Acute) Spinal stenosis (Acute) Left knee DJD (Acute) Depo-Medrol injection: 06/24/2022 Benign paroxysmal positional vertigo (Acute) Sleep apnea (Acute) Mitral regurgitation (Chronic) Diastolic dysfunction (Acute) CKD (chronic kidney disease) (Chronic) 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 She has had previous intubations with VL grade 1 view. Also easy mask with 90 mm OPA, and successful LMA placement in the past. Shortness of breath Nasal septal deviation Sensorineural hearing loss of both ears Recurrent UTI (03/15/16) Type 2 diabetes mellitus with diabetic peripheral angiopathy without gangrene Gastro-esophageal reflux disease without esophagitis Hyperlipidemia STEVENS (nonalcoholic steatohepatitis) TERRY (obstructive sleep apnea) PVD (peripheral vascular disease) Dyslipidemia Hypertension Hypothyroidism Diabetes mellitus Syncope SVT (supraventricular tachycardia) F/U with Dr. Sweet Lymphoma Breast Cancer Surgical History History of heart assist device WATCHMEN IN SITU History of lumpectomy of right breast Hx of tonsillectomy History of total left hip replacement History of esophagogastroduodenoscopy (EGD) (~07/2021) History of colonoscopy (~07/2021) Rotator Cuff Repair Partial mastectomy with sentinal node Pt. states this is incorrect, she had a lumpectomy Nail removal (toe) Excision of neck mass Social History Smoking/Tobacco Use Status: Never Smoking risk assessment performed?: Yes Alcohol Intake: never Drug use: Never Substance use type: does not use Housing: house Do you feel safe at home: Yes Do you feel safe in your relationship?: Yes Female Reproductive History Menstrual Menopause type: natural Exam Narrative Exam Narrative: Physical Examination General: alert, awake, cooperative, resting comfortably, no acute distress HEENT: normocephalic, atraumatic; PERRL, EOM intact, conjunctiva normal; no nasal discharge; moist mucous membranes, oral and pharyngeal mucosa normal, tolerating secretions Neck: supple, trachea midline; full ROM Chest: normal to inspection Respiratory: Tachypnea, speaking in short sentences, no wheezes appreciated Cardiac: regular rate, regular rhythm, S1S2 intact, no murmurs rubs or gallops GI: abdomen soft, non-tender, non-distended; no palpable mass or hepatosplenomegaly Skin: no lesions, rashes or trauma appreciated Neuro: AAOx3, normal speech, moving all extremities Extremities: Edema to bilateral ankles Psych: Appropriate mood and affect Course Vital Signs Vital signs: Vital Signs Temperature 36.8 C 08/13/23 00:44 Pulse 99 H 08/13/23 00:44 Respiratory Rate 40 H 08/13/23 00:44 Blood Pressure 245/95 H 08/13/23 00:44 Pulse Oximetry 85 L 08/13/23 00:44 Temperature 36.8 C 08/13/23 00:44 Pulse 99 H 08/13/23 00:44 Respiratory Rate 40 H 08/13/23 00:44 Blood Pressure 245/95 H 08/13/23 00:44 Pulse Oximetry 85 L 08/13/23 00:44 Oxygen Delivery Method Room Air 08/13/23 00:44 Oxygen Flow Rate 0 08/13/23 00:44
[2023-08-13] MEDS: Omnipaque 350 MG/ML 100 ML BTL IJ (00:59)
[2023-08-13 01:00] LABS: Abs Immature Grans 0.03 10^3/uL (0.0-0.06); Absolute Basophil Count 0.06 10^3/uL (0.0-0.2); Absolute Eosinophil Count 0.24 10^3/uL (0.0-0.7); Absolute Lymphocyte Count 1.17 10^3/uL (1.2-3.4); Absolute Monocyte Count 0.83 10^3/uL (0.1-0.8); Absolute Neutrophil Count 5.77 10^3/uL (1.2-6.7); BE (Venous) -1 mmol/L (-2-3); Basophils % 0.7; HCO3 (Venous) 24 mmol/L (23-28); HCT 36.6 % (36.0-46.0); HGB 11.5 g/dL (11.2-15.7); Immature Grans % 0.4; Lymphocytes % 14.4; MCH 30.8 pg (27.0-33.0); MCHC 31.4 % (32.0-36.0); MCV 98 fL (80-95); MPV 10.2 fL (8.0-11.0); Monocytes % 10.2; Neutrophils % 71.3; O2 Sat (Venous) 87 %; Platelet Count 167 10^3/uL (130-400); RBC 3.73 10^6/uL (3.93-5.22); RDW 15.4 % (11.7-14.6); RDW-SD 55.1 fL; TCO2 (Venous) 22 mmol/L (24-29); pCO2 (Venous) 40 mmHg (41-51); pH (Venous) 7.39 (7.31-7.41); pO2 (Venous) 53 mmHg
[2023-08-13] MEDS: Normal Saline - Diluent 50 ML VIAL IJ (01:00)
[2023-08-13] MEDS: Normal Saline Flush 10 ML SYR IVP ×5 (01:00→19:59)
[2023-08-13 01:14] LABS: INR 1.1 (0.9-1.1); PTT Activated 18.7 sec (23.6-32.8); Prothrombin Time 10.8 sec (9.1-11.1)
[2023-08-13 01:27] LABS: ALT 35 U/L (14-59); AST 40 U/L (15-37); Albumin 3.5 g/dL (3.4-5.0); Alkaline Phosphatase 391 U/L (46-116); BUN 27 mg/dL (7-18); Bilirubin, Total 1.1 mg/dL (0.2-1.0); CREATININE 1.4 mg/dL (0.55-1.02); Calcium 9.1 mg/dL (8.5-10.1); Chloride 107 mmol/L (98-107); Estimated GFR 38.03 (mL/min/1.73m2); Glucose 156 mg/dL (74-106); Magnesium 2.3 mg/dL (1.8-2.4); NT-proBNP 1957 pg/mL (<300); Potassium 4.2 mmol/L (3.5-5.1); Sodium 142 mmol/L (136-145); TSH (W/Ref FT4) 0.88 uIU/mL (0.36-3.74); Total Protein 6.7 g/dL (6.4-8.2); Troponin I < 50 ng/L (<or=60)
[2023-08-13] MEDS: nitroGLYcerin 0.4 MG TAB SL ×2 (01:32→02:04)
[2023-08-13] MEDS: Furosemide 100 MG/10 ML VIAL 80 MG IVP ×3 (01:32→15:57)
--- NOTE | 2023-08-13 01:35 | DI.VRAD_ITS ---
Addendum created by Lenny Garcia MD on 08/13/2023 2:00:12 AM EST: THIS REPORT CONTAINS FINDINGS THAT MAY BE CRITICAL TO PATIENT CARE. The findings were discussed with Yan Redding at 2:00 AM EST on 08/13/2023. The findings were acknowledged and understood. Initial report created on 08/13/2023 1:34:27 AM EST: PROCEDURE INFORMATION: Exam: CTA Chest With Contrast Exam date and time: 08/13/2023 1:08 AM Age: 78 years old Clinical indication: Shortness of breath and other: Hypoxia; Prior surgery; Surgery date: 6+ months; Surgery type: Watchman, stent; Patient HX: Recent hip surgery, SOB, hypoxia TECHNIQUE: Imaging protocol: Computed tomographic angiography of the chest with contrast. Exam focused on the arteries. 3D rendering (Not supervised by radiologist): MIP and/or 3D reconstructed images were created by the technologist. Radiation optimization: All CT scans at this facility use at least one of these dose optimization techniques: automated exposure control; mA and/or kV adjustment per patient size (includes targeted exams where dose is matched to clinical indication); or iterative reconstruction. Contrast material: OMNIPAQUE 350; Contrast volume: 100 ml; Contrast route: INTRAVENOUS (IV); COMPARISON: CT CHEST PE CTA 04/18/2021 1:21 PM FINDINGS: Pulmonary arteries: small segmental pulmonary embolus of the inferior left lower lobe with a couple possible tiny peripheral pulmonary emboli seen in other arteries but with evaluation limited due to motion. Evaluation for pulmonary emboli is limited due to respiratory artifact. Aorta: Unremarkable. No aortic aneurysm. No aortic dissection. Lungs: Mild pulmonary edema. Pleural spaces: A small bilateral pleural effusions. Heart: Unremarkable. No cardiomegaly. No pericardial effusion. Lymph nodes: Unremarkable. No enlarged lymph nodes. Liver: Hepatic cirrhosis. Bones/joints: Unremarkable. No acute fracture. Soft tissues: Unremarkable. IMPRESSION: 1. Small segmental pulmonary embolus of the inferior left lower lobe with a couple possible tiny peripheral pulmonary emboli seen in other arteries but with evaluation limited due to motion. 2. A small bilateral pleural effusions. 3. Mild pulmonary edema. Dictated and Authenticated by: Lenny Garcia MD. Ordering:P.DISST Miladis Heredia MD
[2023-08-13 02:46] LABS: COVID-19 PCR Negative (Negative); Influenza A PCR Negative (Negative); Influenza B PCR Negative (Negative); RSV PCR Negative (Negative)
[2023-08-13 02:49] LABS: Source Nasopharynx
[2023-08-13] MEDS: Enoxaparin 100 MG/ML SYR SC ×2 (03:20→16:42)
--- NOTE | 2023-08-13 03:56 | HPE_ITS ---
Date of service: 08/13/23 Time of Service: 03:56 Assessment and Plan Assessment and plan (1) Pulmonary edema: Start date: 08/13/23 Status: Acute Assessment and plan: This is an 78-year-old lady who has a history of CHF off Lasix recently after hip surgery which most likely was to be restarted after surgery. She has done well with IV Lasix 80 mg and continue IV Lasix 80 mg twice daily with close monitoring of diuresis and avoiding overdiuresis. She does currently have hypertension and has a history of CAD with no evidence of ischemia with her event. She was hypoxic which is improving and chronically is not on oxygen at home. Her has been Plavix has been restarted and now Lasix will be restarted. Prognosis good the patient will recover quickly on her usual medical regimen and she will continue heart rate control and blood pressure control with beta- damián and calcium channel blockers with a history of paroxysmal atrial fibrillation status post Watchman procedure off Eliquis with recent right hip surgery and edema possibly prompting this acute pulmonary embolus which is small on the left side. She will be on Lovenox during the hospital stay and may be restart Eliquis for treatment of her PE and be reevaluated for need for chronic anticoagulation with if this was unprovoked event. She did not have unilateral swelling and was fairly immobile after her surgery she is a full code. Qualifiers: Chronicity: acute Qualified Code(s): J81.0 - Acute pulmonary edema (2) Pulmonary embolism: Start date: 08/13/23 Status: Acute Assessment and plan: No last 100 mg subcu twice daily and consider Eliquis as outpatient for up to 6 weeks versus chronic treatment. She has been off Eliquis since she had a Watchman procedure for atrial fibrillation. Qualifiers: Pulmonary embolism type: single subsegmental (without acute cor pulmonale) Qualified Code(s): I26.93 - Single subsegmental pulmonary embolism without acute cor pulmonale (3) CKD (chronic kidney disease): Status: Chronic Assessment and plan: This appears stable but monitor closely with aggressive diuresis for worsening. Qualifiers: Chronic kidney disease stage: stage 3 (moderate) Chronic kidney disease stage 3 subtype: stage 3b (GFR 30-44) Qualified Code(s): N18.32 - Chronic kidney disease, stage 3b (4) Diabetes type 2, controlled: Status: Chronic Assessment and plan: On Farxiga chronically which will be held with patient to have glucometer measurements before meals and bedtime and short acting insulin coverage while hospitalized. Patient is on a heart healthy diabetic diet. Qualifiers: Diabetes mellitus complication status: with other specified complication Diabetes mellitus emt intermediate insulin use: without emt intermediate use Qualified Code(s): E11.69 - Type 2 diabetes mellitus with other specified complication (5) PAF (paroxysmal atrial fibrillation): Status: Chronic Assessment and plan: Patient presently in atrial fibrillation with controlled rate with outpatient medication to be continued the same. Reconsideration of Eliquis chronically with her PE with patient having this medication at home. History of Present Illness History of Present Illness Chief Complaint: Shortness of breath with hypoxemia Narrative: This is an 78-year-old l female patient who has a history of paroxysmal atrial fibrillation with recent Watchman procedure off Eliquis having had a recent right hip replacement revised earlier this month presenting with progressive shortness of breath over the last day and peripheral edema with hypoxemia in the ED requiring oxygen supplementation. Imaging in the ED did reveal pulmonary edema and left lower segment pulmonary embolus with patient treated with IV Lasix 80 mg initially and improved shortness of breath and hypoxemia. She was also started on Lovenox being off Eliquis. Her peripheral edema had improved with IV diuresis and she did have a Munoz draining clear urine. She does have a history of CAD and valvular replacement with patient stating that she does have an aortic valve murmur. She denies any chest pain with her recent onset of symptoms and troponin was negative. Cardiac rhythm was atrial fibrillation at the time of my examination the patient not having palpitations. She had no discomfort with deep breathing. She agreed to stay for IV diuresis and will need Lovenox treatment for PE with consideration of the venous Dopplers with recent edema and recent surgery. Long-term she needs to decide on whether she should be on Eliquis if this PE was not provoked but the watchman's procedure was performed to get her off of Eliquis because of risk of bleeding and she has been off for the last 6 months stated. She is a full code. Review of Systems Narrative: 13 point review of systems otherwise unrevealing or stable. Patient is chronically obese and does not usually have peripheral edema. She has been off Lasix since her surgery 07/29/2023. She also held her aspirin and Plavix. She denies any bruising and stated had no chest pain with her shortness of breath. [facility] All Active Problems (Updated 08/13/23 @ 10:33 by Herminio Duke) PAF (paroxysmal atrial fibrillation) (Chronic) Diabetes type 2, controlled (Chronic) Hypertension (Chronic) Pulmonary embolism (Acute) Pulmonary edema (Acute) Pleural effusion (Acute) Loosening of prosthesis of right hip joint (Acute) s/p Revision R Acetabular Component (07/29/23) History of revision of total hip arthroplasty (Acute 07/29/23) Strain of right iliopsoas muscle (Acute) Imbalance (Acute) Displaced fracture of greater trochanter of right femur, subsequent encounter for closed fracture with nonunion (Acute) Strain of right iliopsoas muscle (Acute) Unstable angina (Acute) Dyspnea (Acute) Angina at rest (Acute) Coronary atherosclerosis (Acute) Spinal stenosis (Acute) Left knee DJD (Acute) Depo-Medrol injection: 06/24/2022 Benign paroxysmal positional vertigo (Acute) Sleep apnea (Acute) Mitral regurgitation (Chronic) Diastolic dysfunction (Acute) CKD (chronic kidney disease) (Chronic) 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 She has had previous intubations with VL grade 1 view. Also easy mask with 90 mm OPA, and successful LMA placement in the past. Shortness of breath Nasal septal deviation Sensorineural hearing loss of both ears Recurrent UTI (03/15/16) Type 2 diabetes mellitus with diabetic peripheral angiopathy without gangrene Gastro-esophageal reflux disease without esophagitis Hyperlipidemia STEVENS (nonalcoholic steatohepatitis) TERRY (obstructive sleep apnea) PVD (peripheral vascular disease) Dyslipidemia Hypertension Hypothyroidism Diabetes mellitus Syncope SVT (supraventricular tachycardia) F/U with Dr. Sweet Lymphoma Breast Cancer Surgical History History of heart assist device WATCHMEN IN SITU History of lumpectomy of right breast Hx of tonsillectomy History of total left hip replacement History of esophagogastroduodenoscopy (EGD) (~07/2021) History of colonoscopy (~07/2021) Rotator Cuff Repair Partial mastectomy with sentinal node Pt. states this is incorrect, she had a lumpectomy Nail removal (toe) Excision of neck mass Social History Smoking/Tobacco Use Status: Never Smoking risk assessment performed?: Yes Alcohol Intake: never Drug use: Never Substance use type: does not use Housing: house Do you feel safe at home: Yes Do you feel safe in your relationship?: Yes Female Reproductive History Menstrual Menopause type: natural Meds Allergies and Home Medications Allergies Allergy/AdvReac Type Severity Reaction Status Date / Time tamoxifen Allergy Intermediate liver Verified 08/13/23 01:48 complications amlodipine AdvReac Intermediate leg pain Verified 08/13/23 01:48 atenolol AdvReac Intermediate leg pain Verified 08/13/23 01:48 doxazosin AdvReac Intermediate leg pain Verified 08/13/23 01:48 enalapril AdvReac Intermediate leg pain Verified 08/13/23 01:48 glipizide AdvReac Intermediate body aches Verified 08/13/23 01:48 lisinopril AdvReac Intermediate leg pain Verified 08/13/23 01:48 sertraline AdvReac Intermediate leg pain Verified 08/13/23 01:48 simvastatin [From Zocor] AdvReac Intermediate leg pain Verified 08/13/23 01:48 Irlkbya-SGQ-UzD Reductase AdvReac Intermediate leg pains Verified 08/13/23 01:48 Inhibitor [Yrwdwhb-Pda-Rxy Reductase Inhibitor] ticlopidine AdvReac Intermediate leg pain Verified 08/13/23 01:48 valsartan AdvReac Intermediate leg pain Verified 08/13/23 01:48 Home Medications Medication Instructions Recorded Confirmed Type diltiazem HCl 300 mg 300 mg PO DAILY 02/29/16 08/13/23 History capsule,extended release 24 hr (Cartia XT) escitalopram oxalate 20 mg tablet 20 mg PO DAILY 02/29/16 08/13/23 History gabapentin 100 mg capsule 100 mg PO QHS 12/11/20 08/13/23 History fluticasone propionate 50 2 spray intranasal DAILY PRN 04/25/21 08/13/23 History mcg/actuation nasal spray,suspension (Allergy Relief (fluticasone)) levothyroxine 125 mcg tablet 150 mcg PO DAILY 06/06/21 08/13/23 History meclizine 12.5 mg tablet See Rx Instructions PO DAILY PRN 10/25/21 08/13/23 History aspirin 81 mg tablet,delayed 81 mg PO DAILY 06/19/22 08/13/23 History release (Adult Aspirin Regimen) L. crispatus, gasseri, jensenii, 1 cap PO DIRECTED PRN 07/16/22 08/13/23 History rhamnosus 5 billion cell capsule (AZO Complete Feminine Balance) furosemide 40 mg tablet 40 mg PO BID 02/07/23 08/13/23 History rosuvastatin 20 mg tablet 20 mg PO DAILY 02/07/23 08/13/23 History clopidogrel 75 mg tablet 75 mg PO DAILY 05/20/23 08/13/23 History empagliflozin 10 mg tablet 10 mg PO DAILY 05/20/23 08/13/23 History (Jardiance) metoprolol succinate 25 mg 25 mg PO DAILY 05/20/23 08/13/23 History tablet,extended release 24 hr pantoprazole 40 mg tablet,delayed 40 mg PO DAILY 05/20/23 08/13/23 History release ferrous sulfate 325 mg (65 mg 650 mg PO Q OTHER DAY 07/08/23 08/13/23 History iron) tablet (Feosol) acetaminophen 500 mg tablet 1,000 mg (2 x 500 mg) PO Q8H PRN 07/29/23 08/13/23 Rx pain #90 tabs docusate sodium 100 mg capsule 100 mg PO BID #30 caps 07/29/23 08/13/23 Rx (Colace) meloxicam 15 mg tablet 15 mg PO DAILY #30 tabs 07/29/23 08/13/23 Rx oxycodone 5 mg tablet 5 mg PO Q6H PRN #12 tabs 07/29/23 08/13/23 Rx bupropion HCl 100 mg tablet,12 hr 100 mg PO DAILY 08/13/23 08/13/23 History sustained-release levothyroxine 150 mcg tablet 150 mcg PO DAILY 08/13/23 08/13/23 History Exam Narrative Exam Narrative: General: Patient appears appropriate for age, moderately obese in no acute distress. She is speaking without dyspnea and normal tone and liyah. She is on O2 nasal cannula. She is alert and oriented x 3. HEENT: Normocephalic, eyes with pupils equal and reactive to light symmetrically, extraocular movement intact and sclera anicteric. Oropharynx with moist mucosa. Neck: Supple without JVD. Back: Stooped posture without CVA tenderness. Lungs: Fair aeration and clear to auscultation and percussion without focalizing rales or rhonchi. Heart: Irregularly irregular rhythm with normal rate, systolic murmur upper left sternal border with no gallops or rubs. Breast: Exam deferred. Abdomen: Obese contour, soft nontender to palpation no palpable hepatosplenomegaly. Bowel sounds positive all quadrants. Genitalia/rectal: Exam deferred. Patient does have Munoz catheter in place. Extremities: Nonpitting edema both lower extremities with good capillary refill. No cyanosis or clubbing. Skin: Normal color, warm and dry with no bruising noted. Neuro: Cranial nerves II through XII grossly intact, no focal motor deficits or tremor. Psych: Normal affect and mood. No abnormal thought processes. Remote and recent memory intact. Results Imaging Imaging Studies: Exam: CTA Chest With Contrast Exam date and time: 08/13/2023 1:08 AM Age: 78 years old Clinical indication: Shortness of breath and other: Hypoxia; Prior surgery; Surgery date: 6+ months; Surgery type: Watchman, stent; Patient HX: Recent hip surgery, SOB, hypoxia TECHNIQUE: Imaging protocol: Computed tomographic angiography of the chest with contrast. Exam focused on the arteries. 3D rendering (Not supervised by radiologist): MIP and/or 3D reconstructed images were created by the technologist. Radiation optimization: All CT scans at this facility use at least one of these dose optimization techniques: automated exposure control; mA and/or kV adjustment per patient size (includes targeted exams where dose is matched to clinical indication); or iterative reconstruction. Contrast material: OMNIPAQUE 350; Contrast volume: 100 ml; Contrast route: INTRAVENOUS (IV); COMPARISON: CT CHEST PE CTA 04/18/2021 1:21 PM FINDINGS: Pulmonary arteries: small segmental pulmonary embolus of the inferior left lower lobe with a couple possible tiny peripheral pulmonary emboli seen in other arteries but with evaluation limited due to motion. Evaluation for pulmonary emboli is limited due to respiratory artifact. Aorta: Unremarkable. No aortic aneurysm. No aortic dissection. Lungs: Mild pulmonary edema. Pleural spaces: A small bilateral pleural effusions. Heart: Unremarkable. No cardiomegaly. No pericardial effusion. Lymph nodes: Unremarkable. No enlarged lymph nodes. Liver: Hepatic cirrhosis. Bones/joints: Unremarkable. No acute fracture. Soft tissues: Unremarkable. IMPRESSION: 1. Small segmental pulmonary embolus of the inferior left lower lobe with a couple possible tiny peripheral pulmonary emboli seen in other arteries but with evaluation limited due to motion. 2. A small bilateral pleural effusions. 3. Mild pulmonary edema. Labs 08/13/23 00:55 08/13/23 00:55 Labs: Laboratory Results - last 24 hr 08/13/23 08/13/23 00:55 02:06 WBC 8.10 RBC 3.73 L Hgb 11.5 Hct 36.6 MCV 98 H MCH 30.8 MCHC 31.4 L RDW 15.4 H Plt Count 167 MPV 10.2 Immature Gran % 0.4 Neutrophils % 71.3 Lymphocytes % 14.4 Monocytes % 10.2 Eosinophils % 3.0 Basophils % 0.7 Nucleated RBC % 0.0 Absolute Neutrophils 5.77 Absolute Lymphocytes 1.17 L Absolute Monocytes 0.83 H Absolute Eosinophils 0.24 Absolute Basophils 0.06 PT 10.8 INR 1.1 APTT 18.7 L VBG pH 7.39 VBG pCO2 40 L VBG pO2 53 VBG HCO3 24 VBG Total CO2 22 L VBG O2 Saturation 87 VBG Base Excess -1 Sodium 142 Potassium 4.2 Chloride 107 Carbon Dioxide 25.0 Anion Gap 10.0 BUN 27 H Creatinine 1.4 H Est GFR (CKD-EPI 2020) 38.03 Glucose 156 H Calcium 9.1 Magnesium 2.3 Total Bilirubin 1.1 H AST 40 H ALT 35 Alkaline Phosphatase 391 H Troponin I < 50 NT-Pro-B Natriuret Pep 1957 H Total Protein 6.7 Albumin 3.5 TSH 0.88 COVID-19 Source Nasopharynx SARS-CoV-2 (PCR) Negative Influenza Type A (PCR) Negative Influenza Type B (PCR) Negative RSV (PCR) Negative Last Vital Signs Temp 36.8 C 08/13/23 00:44 Pulse 84 08/13/23 03:16 Resp 24 08/13/23 03:16 BP 192/71 H 08/13/23 03:16 Pulse Ox 97 08/13/23 03:16 Time Spent Time spent with Patient: >75 minutes Time was spent: preparing to see the patient(eg.review tests), obtaining and/or reviewing separately otained hiistory, ordering medications,tests, procedures, referring, communicating with other health care clinician and indepentently interpreting results
[2023-08-13 04:29] LABS: Troponin I < 50 ng/L (<or=60)
[2023-08-13 06:45] LABS: HCT 34.1 % (36.0-46.0); HGB 10.9 g/dL (11.2-15.7); MCV 97 fL (80-95); MPV 10.4 fL (8.0-11.0); Platelet Count 137 10^3/uL (130-400); RBC 3.52 10^6/uL (3.93-5.22); RDW 15.4 % (11.7-14.6); RDW-SD 54.3 fL
[2023-08-13 07:10] LABS: ALT 27 U/L (14-59); AST 33 U/L (15-37); Albumin 3.1 g/dL (3.4-5.0); Alkaline Phosphatase 336 U/L (46-116); BUN 24 mg/dL (7-18); Bilirubin, Total 1.1 mg/dL (0.2-1.0); CREATININE 1.3 mg/dL (0.55-1.02); Chloride 106 mmol/L (98-107); Estimated GFR 41.57 (mL/min/1.73m2); Glucose 131 mg/dL (74-106); Potassium 3.7 mmol/L (3.5-5.1); Sodium 143 mmol/L (136-145); Total Protein 6.4 g/dL (6.4-8.2)
[2023-08-13] MEDS: Escitalopram 20 MG TAB PO (08:33)
[2023-08-13] MEDS: Levothyroxine 75 MCG TAB 150 MCG PO (08:33)
[2023-08-13] MEDS: Ferrous Sulfate 325 MG TAB 650 MG PO (08:36)
[2023-08-13] MEDS: Clopidogrel 75 MG TAB PO (08:37)
[2023-08-13] MEDS: buPROPion 100 MG TAB PO (08:37)
[2023-08-13] MEDS: dilTIAZem CD 300 MG CAPCR PO (08:37)
[2023-08-13] MEDS: Docusate Sodium 100 MG CAP PO ×2 (08:37→19:59)
[2023-08-13] MEDS: Pantoprazole 40 MG TABCR PO (08:38)
[2023-08-13] MEDS: Metoprolol CR 25 MG TABCR PO (08:38)
[2023-08-13] MEDS: Meloxicam 15 MG TAB PO (08:38)
[2023-08-13] MEDS: Aspirin E.C. 81 MG TABEC PO (08:39)
--- NOTE | 2023-08-13 12:19 | PDOC.CMIN ---
Date of service: 08/13/23 Time of Service: 12:19 Care Management Initial Assmt Initial Assessment REASON FOR HOSPITALIZATION:: pulmonary edema, PE PREVIOUS FUNCTIONAL STATUS/SOCIAL/FAMILY SUPPORTS:: Silvia resides in [facility], she is with four children, nine grandchildren, and many great grandchildren. 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 She moved from her home in [place] to a friend's home, [address], who helps support her with transportation, meals, companionship, and any other needs that present. She is mostly independent with ADLs, does require minimum assistance with ambulation. CURRENT FUNCTIONAL STATUS:: Cherry was lying in bed when CM met with her. She was pleasant and engaged well in conversation. She stated that she is doing well, and wondered if she is being discharged home today. Per report, the provider plans to continue to monitor her overnight, as she continues to require supplemental O2 and anticoagulation. She is comfortable with this plan, and agreeable to the provider's recommendations. She discussed her [place] plans, which she will be spending with family, and is very excited to attend. CM will continue to follow. ADVANCE DIRECTIVES:: Not on file at [employer] [employer]. CM will offer forms. Has patient been provided with info about the portal/API?: Yes Did the patient sign up for the portal?: No CODE STATUS:: Full Code INSURANCE COVERAGE / FINANCIAL ISSUES:: [employer] CURRENT HOME/COMMUNITY SERVICES/EQUIPMENT:: [employer] PRIMARY CARE PHYSICIAN:: Jena Mitchell POTENTIAL DISCHARGE NEEDS:: Evaluations for further needs, follow up appointments. PATIENT/FAMILY EDUCATION NEEDS:: Review discharge instructions and limitations, discussion of self care needs including ask me three. ANTICIPATED BARRIERS TO DISCHARGE:: None identified. TRANSPORTATION:: Via private vehicle by family. PLAN:: Anticipate Cherry will return home once medically cleared. She will be driven home via private vehicle by her friend, [address], when ready. She will follow up with her PCP and discharge plan of care. CM will continue to follow. PFSH All Active Problems (Updated 08/13/23 @ 10:33 by Herminio Duke) PAF (paroxysmal atrial fibrillation) (Chronic) Diabetes type 2, controlled (Chronic) Hypertension (Chronic) Pulmonary embolism (Acute) Pulmonary edema (Acute) Pleural effusion (Acute) Loosening of prosthesis of right hip joint (Acute) s/p Revision R Acetabular Component (07/29/23) History of revision of total hip arthroplasty (Acute 07/29/23) Strain of right iliopsoas muscle (Acute) Imbalance (Acute) Displaced fracture of greater trochanter of right femur, subsequent encounter for closed fracture with nonunion (Acute) Strain of right iliopsoas muscle (Acute) Unstable angina (Acute) Dyspnea (Acute) Angina at rest (Acute) Coronary atherosclerosis (Acute) Spinal stenosis (Acute) Left knee DJD (Acute) Depo-Medrol injection: 06/24/2022 Benign paroxysmal positional vertigo (Acute) Sleep apnea (Acute) Mitral regurgitation (Chronic) Diastolic dysfunction (Acute) CKD (chronic kidney disease) (Chronic) 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 She has had previous intubations with VL grade 1 view. Also easy mask with 90 mm OPA, and successful LMA placement in the past. Shortness of breath Nasal septal deviation Sensorineural hearing loss of both ears Recurrent UTI (03/15/16) Type 2 diabetes mellitus with diabetic peripheral angiopathy without gangrene Gastro-esophageal reflux disease without esophagitis Hyperlipidemia STEVENS (nonalcoholic steatohepatitis) TERRY (obstructive sleep apnea) PVD (peripheral vascular disease) Dyslipidemia Hypertension Hypothyroidism Diabetes mellitus Syncope SVT (supraventricular tachycardia) F/U with Dr. Sweet Lymphoma Breast Cancer Surgical History History of heart assist device WATCHMEN IN SITU History of lumpectomy of right breast Hx of tonsillectomy History of total left hip replacement History of esophagogastroduodenoscopy (EGD) (~07/2021) History of colonoscopy (~07/2021) Rotator Cuff Repair Partial mastectomy with sentinal node Pt. states this is incorrect, she had a lumpectomy Nail removal (toe) Excision of neck mass Social History Smoking/Tobacco Use Status: Never Smoking risk assessment performed?: Yes Alcohol Intake: never Drug use: Never Substance use type: does not use Housing: house Do you feel safe at home: Yes Do you feel safe in your relationship?: Yes Female Reproductive History Menstrual Menopause type: natural
--- NOTE | 2023-08-13 15:25 | PHA.REVIEW2 ---
Pharmacy Admission Review Admission Clinical Review Admission Pharmacy Review: (Updated 08/13/23 @ 10:33 by Herminio Duke) Pulmonary embolism (Acute) Pulmonary edema (Acute) Pleural effusion (Acute) tamoxifen Allergy (Intermediate, Verified 08/13/23 01:48) liver complications amlodipine Adverse Reaction (Intermediate, Verified 08/13/23 01:48) leg pain atenolol Adverse Reaction (Intermediate, Verified 08/13/23 01:48) leg pain doxazosin Adverse Reaction (Intermediate, Verified 08/13/23 01:48) leg pain enalapril Adverse Reaction (Intermediate, Verified 08/13/23 01:48) leg pain glipizide Adverse Reaction (Intermediate, Verified 08/13/23 01:48) body aches lisinopril Adverse Reaction (Intermediate, Verified 08/13/23 01:48) leg pain sertraline Adverse Reaction (Intermediate, Verified 08/13/23 01:48) leg pain simvastatin [From Zocor] Adverse Reaction (Intermediate, Verified 08/13/23 01:48) leg pain Lbjveay-AMZ-OuA Reductase Inhibitor [Mxqswko-Ueu-Jpz Reductase Inhibitor] Adverse Reaction (Intermediate, Verified 08/13/23 01:48) leg pains ticlopidine Adverse Reaction (Intermediate, Verified 08/13/23 01:48) leg pain valsartan Adverse Reaction (Intermediate, Verified 08/13/23 01:48) leg pain Resuscitation Status Full Code Height 5 ft 3 in Weight 102.149 kg Comments Comments/Follow Ups: Patient has order right now for gabapentin 100mg HS (this is from home med list, confirmed with patient). Patient brought up issues with restless leg and was curious about increasing the dose. Discussed with provider. Patient also stated she has trouble sleeping. States taking 40mg of melatonin at bedtime, looking at med list I believe she is actually doing 2 tablets of the 10mg melatonin. But did tell her this was a lot to be taking and discussed with provider about sleeping issues. Pharmacy Admission Review Renal Dosing Renal Dosing: BUN 24 mg/dL (7-18) H 08/13/23 06:25 Creatinine 1.3 mg/dL (0.55-1.02) H 08/13/23 06:25 Medications needing adjustments: Reviewed (CrCl 39.39 mL/min) Anticoagulation Anticoagulation: Hgb 10.9 g/dL (11.2-15.7) L 08/13/23 06:25 Hct 34.1 % (36.0-46.0) L 08/13/23 06:25 Plt Count 137 10^3/uL (130-400) 08/13/23 06:25 INR 1.1 (0.9-1.1) 08/13/23 00:55 Creatinine 1.3 mg/dL (0.55-1.02) H 08/13/23 06:25 Therapeutic Anticoagulation: Intervened Medications: Enoxaparin (100mg q24h, noticed a 20kg difference between 2 documented weights this morning for patient. Called nursing to re-check and confirmed dose with provider.) Relevant Labs Relevant Labs: Sodium 143 mmol/L (136-145) 08/13/23 06:25 Potassium 3.7 mmol/L (3.5-5.1) 08/13/23 06:25 Chloride 106 mmol/L (98-107) 08/13/23 06:25 Magnesium 2.0 mg/dL (1.8-2.4) 08/13/23 06:25 Electrolytes, C-Reactive P, ESR: Reviewed DM Control DM Control: Reviewed (Type 2) Insulin Dosing, Diabetic Medication: Currently has orders for SS insulin. Currently takes Jardiance at home (in process of switching to Invokana, waiting on insurance, confirmed with patient and updated med list.) Patient states she was told to hold Jardiance before recent surgery (hip replacement) and was never told to resume it. Sounds like she hasn't been taking it since her surgery. Spoke with provider. Cardiac Review Cardiac Review: Troponin I < 50 ng/L (<or=60) 08/13/23 04:06 NT-Pro-B Natriuret Pep 1957 pg/mL (<300) H 08/13/23 00:55 BP, HR, EF%: Reviewed (BP 127/51, HR WNL, Ox 90) QTc Review QTc: Reviewed (478 08/13/23) IV to PO Switch IV Medications: Reviewed Home Meds Home Med List reviewed: Intervened Relevent Home Meds Not ordered & why?: Multiple discrepancies found on patients home med list. Requested copy of med list from PCP office (Dr. Mitchell) and went to patients room to discuss her home meds. The following changes were made (spoke with provider about changes): - On med list but no longer taking: docusate, oxycodone, and pantoprazole. All were taken off home med list - Not on med list but currently taking: spironolactone, irbesartan, melatonin, and PRN nitroglycerin. All were added to home med list. Per patient she was told to hold the spironolactone post recent hip surgery and was never told to resume it. Spoke with provider. - Metoprolol had a note stating that patient was only taking 1/2 tablet at home (12.5mg) but order was for 25mg. Confirmed with patient that she is taking a whole tablet and note was removed from med list. - Ferrous sulfate was listed on home med list as 2 tablets every other day. Confirmed with med list from PCP and patient that she only takes 1 tablet every other day. Home med list was corrected and order was corrected to 1 tablet. - Bupropion was on med list as regular dose, patient takes the SR tablet. Updated this on home med list and new order was put in by provider. - Gabapentin was listed as on hold on home med list, confirmed with patient that she is taking it and changed to taking. - Updated Jardiance/Invokana as mentioned above Medication adherence barriers identified?: Patient stated she has not been taking her Eliquis due to cost. It is not currently on her home med list. Spoke with provider about this, will add to home med list if patient agrees to start taking again. Current Meds Current Medication Order Review: Reviewed Comments Comments/Follow Ups: Patient has order right now for gabapentin 100mg HS (this is from home med list, confirmed with patient). Patient brought up issues with restless leg and was curious about increasing the dose. Discussed with provider. Patient also stated she has trouble sleeping. States taking 40mg of melatonin at bedtime, looking at med list I believe she is actually doing 2 tablets of the 10mg melatonin. But did tell her this was a lot to be taking and discussed with provider about sleeping issues.
--- NOTE | 2023-08-13 17:09 | CHAPLAIN ---
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 Cherry talked about being short of breath and how scary that was for her before coming to the ED. She recently had a hip replaced and said she isn't feeling pain there and is happy to be pain-free. Cherry was very pleasant and easily engaged in a conversation. She had a visitor with her when I stopped in.
[2023-08-13] MEDS: Acetaminophen 325 MG TAB PO (19:58)
[2023-08-13] MEDS: Irbesartan 75 MG TAB PO (19:59)
[2023-08-13] MEDS: Rosuvastatin 20 MG TAB PO (19:59)
[2023-08-13] MEDS: Gabapentin 100 MG CAP PO (21:17)
[2023-08-13] MEDS: Melatonin 3 MG TAB 18 MG PO (21:17)
[2023-08-14] VITALS (10 sets, daily range): BP systolic 117–137; BP diastolic 56–72; PULSE 62–82; RESP 10–24; TEMP 34.6–36.7; O2SAT 9–97
[2023-08-14] MEDS: Enoxaparin 100 MG/ML SYR SC (03:58)
[2023-08-14] MEDS: Levothyroxine 150 MCG TAB PO (05:23)
[2023-08-14] MEDS: Normal Saline Flush 10 ML SYR IVP ×2 (07:41→20:06)
[2023-08-14] MEDS: Furosemide 100 MG/10 ML VIAL 80 MG IVP (07:41)
[2023-08-14] MEDS: Pantoprazole 40 MG TABCR PO (07:42)
[2023-08-14] MEDS: Escitalopram 20 MG TAB PO (07:42)
[2023-08-14] MEDS: Meloxicam 15 MG TAB PO (07:42)
[2023-08-14] MEDS: Aspirin E.C. 81 MG TABEC PO (07:42)
[2023-08-14] MEDS: Metoprolol CR 25 MG TABCR PO (07:42)
[2023-08-14] MEDS: Docusate Sodium 100 MG CAP PO ×2 (07:42→20:06)
[2023-08-14] MEDS: Spironolactone 25 MG TAB 12.5 MG PO (07:42)
[2023-08-14] MEDS: buPROPion-CR 100 MG TABCR PO (07:42)
[2023-08-14] MEDS: Clopidogrel 75 MG TAB PO (07:43)
[2023-08-14] MEDS: dilTIAZem CD 300 MG CAPCR PO (07:43)
[2023-08-14 09:33] LABS: Abs Immature Grans 0.02 10^3/uL (0.0-0.06); Absolute Basophil Count 0.04 10^3/uL (0.0-0.2); Absolute Lymphocyte Count 0.63 10^3/uL (1.2-3.4); Absolute Monocyte Count 0.63 10^3/uL (0.1-0.8); Absolute Neutrophil Count 3.92 10^3/uL (1.2-6.7); Basophils % 0.7; Eosinophils % 3.7; HCT 34.5 % (36.0-46.0); HGB 11.1 g/dL (11.2-15.7); Immature Grans % 0.4; Lymphocytes % 11.6; MCHC 32.2 % (32.0-36.0); MCV 96 fL (80-95); MPV 10.3 fL (8.0-11.0); Monocytes % 11.6; Platelet Count 163 10^3/uL (130-400); RBC 3.58 10^6/uL (3.93-5.22); RDW 15.4 % (11.7-14.6); RDW-SD 54.4 fL; WBC 5.44 10^3/uL (4.4-10.8)
[2023-08-14 09:46] LABS: Anion Gap 7.1 mmol/L (3-11); BUN 25 mg/dL (7-18); CO2 30.9 mmol/L (21.0-32.0); CREATININE 1.5 mg/dL (0.55-1.02); Calcium 8.8 mg/dL (8.5-10.1); Chloride 104 mmol/L (98-107); Estimated GFR 35.01 (mL/min/1.73m2); Glucose 158 mg/dL (74-106); Magnesium 1.8 mg/dL (1.8-2.4); Potassium 3.3 mmol/L (3.5-5.1); Sodium 142 mmol/L (136-145)
--- NOTE | 2023-08-14 10:57 | PGE_ITS ---
Date of Service Date of service: 08/14/23 Time of Service: 10:58 Assessment and Plan Assessment and plan (1) Pulmonary edema: Start date: 08/13/23 Status: Acute Assessment and plan: PMH of heart failure , pulmonary edema as per CT on admission day, treated with lasix IV, transitioning to oral lasix Stop furosemide IV Start furosemide 80 mg oral BID Qualifiers: Chronicity: acute Qualified Code(s): J81.0 - Acute pulmonary edema (2) Pulmonary embolism: Start date: 08/13/23 Status: Acute Assessment and plan: patient was initially on LMWH at a therapeutic dosing for 3 doses .Transitioning to DOAC; Eliquis 10 mg PO Q12 for the remaining 11 doses, then 5mg Q12 for a total duration of anticoagulation 3 months. Consulted with [facility] cardiovascular Mann Matthews APRN: recommendation to continue ASA and stop clopidogrel. The next option if bleeding: stop ASA. The patient also has a scheduled 6 month f/u at [facility] as per the provider spoken to. Once the treament is completed consideration to be given for lifelong therapy w ASA 81 mg Qualifiers: Pulmonary embolism type: single subsegmental (without acute cor pulmonale) Qualified Code(s): I26.93 - Single subsegmental pulmonary embolism without acute cor pulmonale (3) CKD (chronic kidney disease): Status: Chronic Assessment and plan: History of CKD [employer] Cr was 1.3 and at 1.5 today Will continue to monitor,was on SGLT2 inhibitor at home but held since prior to surgery re; plans to change the agent. PCP to f/u Qualifiers: Chronic kidney disease stage: stage 3 (moderate) Chronic kidney disease stage 3 subtype: stage 3b (GFR 30-44) Qualified Code(s): N18.32 - Chronic kidney disease, stage 3b (4) Diabetes type 2, controlled: Status: Chronic Assessment and plan: Blood glucose:94 to 158, continue capillary blood glucose AC and HS Continue SS insulin coverage and diabetic diet Canagliflozin 100 mg oral daily versus Jardiance 10 mg oral daily is getting evaluated by PCP d/t insurance issues; f/u with PCP on discharge Qualifiers: Diabetes mellitus complication status: with other specified complication Diabetes mellitus half-way insulin use: without half-way use Qualified Code(s): E11.69 - Type 2 diabetes mellitus with other specified complication (5) PAF (paroxysmal atrial fibrillation): Status: Chronic Assessment and plan: On telemetry , Afib w MVR / controlled HR 65-79, on metoprolol succinate and Diltiazem CD Will continue telemetry and antiarrhythmics (6) CHF (congestive heart failure): Status: Chronic Assessment and plan: In 2020 LVEF, was 60 to 66%, repeated study today, awaiting reading on LEVF % (7) Hypokalemia: Status: Acute Assessment and plan: K replete BMP in AM Magnesium borderline low at 1.8, as patient is getting furosemide, it will most likely be lower, will replete and recheck in AM (8) Discharge planning issues: Status: Acute Assessment and plan: Home 1-2 days with f/u with PCP discussed with Dr. Ibarra Subjective Subjective Patient reports: no new complaints, feels better, pain is less, tolerating liquids well, tolerating a regular diet, voiding w/o difficulty, flatus and bowel movement; denies diarrhea, blood in stool, nausea, vomiting, shortness of breath or fever Exam Narrative Exam Narrative: Constitutional The patient is in bed comfortable and cooperative during the interview. The patient is without acute distress HENMT: Head is atraumatic, normocephalic. Facial structures with normal appearance Eyes: Well aligned, intact ROM Neck: Normal ROM, no meningeal signs Neuro:alert and oriented to self, person, place, time and situation. No neurological focal deficit. Resp: Normal respiratory pattern,on RA, speaks in full sentences, unlabored breathing, clear lung bilaterally Cardio: Tele A-Fib w MVR, HR 65-79, S1, S2, no murmur, capillary refill<3 sec., bilateral radial and dorsalis pedis pulses are positive, trace LE edema GI: Abdomen is not distended, soft and non tender, bowel sounds are present : Negative Costovertebral angle tenderness, no bladder distension, hong in place Back/spine/Pelvis: No back tenderness, normal alignment Integumentary: No skin lesions or rash, right hip surgical scar healed Extremities: strength 5/5 to bilateral lower and upper extremities Psych: RASS 0, congruent mood and normal affect. Objective Last Vital Signs Temp 36.4 C L 08/14/23 07:23 Pulse 69 08/14/23 07:23 Resp 15 12/21/23 07:23 BP 124/62 08/14/23 07:23 Pulse Ox 92 08/14/23 08:32 Laboratory Results - last 24 hr 08/14/23 09:05 WBC 5.44 RBC 3.58 L Hgb 11.1 L Hct 34.5 L MCV 96 H MCH 31.0 MCHC 32.2 RDW 15.4 H Plt Count 163 MPV 10.3 Immature Gran % 0.4 Neutrophils % 72.0 Lymphocytes % 11.6 Monocytes % 11.6 Eosinophils % 3.7 Basophils % 0.7 Nucleated RBC % 0.0 Absolute Neutrophils 3.92 Absolute Lymphocytes 0.63 L Absolute Monocytes 0.63 Absolute Eosinophils 0.20 Absolute Basophils 0.04 Sodium 142 Potassium 3.3 L Chloride 104 Carbon Dioxide 30.9 Anion Gap 7.1 BUN 25 H Creatinine 1.5 H Est GFR (CKD-EPI 2020) 35.01 Glucose 158 H Calcium 8.8 Magnesium 1.8 Time Spent with Patient Time Spent with Patient: >50 minutes Time was spent: preparing to see the patient(eg.review tests), ordering medications,tests, procedures, referring, communicating with other health health care attorney, indepentently interpreting results, counseling the patient and care coordination
[2023-08-14] MEDS: POTASSIUM CHLORIDE 20 MEQ/100 ML BAG 50 MEQ IVPB (12:35)
--- NOTE | 2023-08-14 12:37 | CMPROGNOTE_ITS ---
Date of service: 08/14/23 Time of Service: 12:37 Care Management Progress Note Progress Note Text Progress Note Text: S/O: Cherry was out of the room having testing when CM attempted to meet with her. Per provider, she will have a new prescription for Eliquis upon discharge; CM completed a PA requesting coverage for this medication. Per report, the provider contacted [facility] for medication recommendations. CM will continue to follow. A: Cherry is an 78 year old female admitted to [facility] on 08/13/21 for pulmonary edema, PE. P: Anticipate Cherry will return home once medically cleared. She will be driven home via private vehicle by her friend, Rd, when ready. She will follow up with her PCP and discharge plan of care. CM will continue to follow.
[2023-08-14] MEDS: Furosemide 40 MG TAB 80 MG PO (16:02)
[2023-08-14] MEDS: MAGNESIUM SULFATE 1 GM/100 ML BAG IVPB (16:07)
[2023-08-14] MEDS: Acetaminophen 325 MG TAB PO (16:14)
[2023-08-14] MEDS: Irbesartan 75 MG TAB PO (20:06)
[2023-08-14] MEDS: Rosuvastatin 20 MG TAB PO (20:06)
[2023-08-14] MEDS: Apixaban 5 MG TAB 10 MG PO (20:07)
[2023-08-14] MEDS: Gabapentin 100 MG CAP PO (20:09)
[2023-08-14] MEDS: Melatonin 3 MG TAB 18 MG PO (20:10)
[2023-08-15 00:48] VITALS: RESP 20
[2023-08-15 03:35] VITALS: BP 118/80; PULSE 66; RESP 19; TEMP 35.9; O2SAT 99
[2023-08-15] MEDS: Levothyroxine 150 MCG TAB PO (06:28)
[2023-08-15 06:51] LABS: Abs Immature Grans 0.01 10^3/uL (0.0-0.06); Absolute Basophil Count 0.03 10^3/uL (0.0-0.2); Absolute Eosinophil Count 0.26 10^3/uL (0.0-0.7); Absolute Lymphocyte Count 0.78 10^3/uL (1.2-3.4); Absolute Monocyte Count 0.69 10^3/uL (0.1-0.8); Absolute Neutrophil Count 3.16 10^3/uL (1.2-6.7); Basophils % 0.6; Eosinophils % 5.3; HCT 33.9 % (36.0-46.0); Immature Grans % 0.2; Lymphocytes % 15.8; MCH 31.5 pg (27.0-33.0); MCHC 32.4 % (32.0-36.0); MCV 97 fL (80-95); MPV 10.6 fL (8.0-11.0); Neutrophils % 64.1; Platelet Count 144 10^3/uL (130-400); RBC 3.49 10^6/uL (3.93-5.22); RDW 15.3 % (11.7-14.6); RDW-SD 54.5 fL; WBC 4.93 10^3/uL (4.4-10.8)
[2023-08-15 06:56] VITALS: BP 154/78; PULSE 80; RESP 16; TEMP 36.6; O2SAT 94
[2023-08-15 07:09] LABS: Anion Gap 7.4 mmol/L (3-11); BUN 31 mg/dL (7-18); CO2 29.6 mmol/L (21.0-32.0); CREATININE 1.8 mg/dL (0.55-1.02); Calcium 9.2 mg/dL (8.5-10.1); Chloride 105 mmol/L (98-107); Estimated GFR 28.13 (mL/min/1.73m2); Glucose 124 mg/dL (74-106); Magnesium 2.2 mg/dL (1.8-2.4); Potassium 3.4 mmol/L (3.5-5.1); Sodium 142 mmol/L (136-145)
[2023-08-15] MEDS: Pantoprazole 40 MG TABCR PO (07:25)
[2023-08-15] MEDS: Potassium Chloride 20 MEQ TABCR PO (08:26)
[2023-08-15] MEDS: Apixaban 5 MG TAB 10 MG PO (08:26)
[2023-08-15] MEDS: Furosemide 40 MG TAB 80 MG PO (08:26)
[2023-08-15] MEDS: Escitalopram 20 MG TAB PO (08:26)
[2023-08-15] MEDS: Meloxicam 15 MG TAB PO (08:27)
[2023-08-15] MEDS: dilTIAZem CD 300 MG CAPCR PO (08:27)
[2023-08-15] MEDS: buPROPion-CR 100 MG TABCR PO (08:27)
[2023-08-15] MEDS: Docusate Sodium 100 MG CAP PO (08:27)
[2023-08-15] MEDS: Metoprolol CR 25 MG TABCR PO (08:27)
[2023-08-15] MEDS: Aspirin E.C. 81 MG TABEC PO (08:27)
[2023-08-15] MEDS: Ferrous Sulfate 325 MG TAB PO (08:27)
[2023-08-15] MEDS: Normal Saline Flush 10 ML SYR IVP (08:29)
[2023-08-15] MEDS: Spironolactone 25 MG TAB 12.5 MG PO (08:35)
[2023-08-15] MEDS: Acetaminophen 325 MG TAB PO (10:15)
--- NOTE | 2023-08-15 11:02 | PDOC.CMDIS ---
Date of service: 08/15/23 Time of Service: 11:02 LACE Index Scoring Tool Questions: Length of Stay (in days): 2 Was the patient admitted via the E.D.?: Yes Comorbidities: Diabetes w/o Complication, Congestive Heart Failure and Liver or Renal Disease E.D. Visits: 3 Answers: Total Score: 13 Risk of Readmission: High Risk Care Management Discharge Plan Reason for Hospitalization: pulmonary edema, PE Discharge Plan: Cherry will return home with no new services. She will have a new prescription for Eliquis; PENNY completed a PA which was approved. Her friend Rd will drive her home via private vehicle when ready. She will follow up with her PCP and discharge plan of care. She is happy to be going home. Patient/Family Education Needs: Review discharge instructions and limitations, discussion of self care needs including ask me three.
--- NOTE | 2023-08-15 11:04 | W.PM.DS.N ---
Date of service: 08/15/23 Time of Service: 09:00 DS: Diagnosis Discharge Diagnosis (1) Pulmonary edema: Status: Acute (2) Pulmonary embolism: Status: Acute (3) CKD (chronic kidney disease): Status: Chronic (4) Diabetes type 2, controlled: Status: Chronic (5) PAF (paroxysmal atrial fibrillation): Status: Chronic (6) CHF (congestive heart failure): Status: Chronic (7) Hypokalemia: Status: Acute (8) Discharge planning issues: Status: Acute Discharge Plan Disposition Patient Disposition: Home Condition: Stable Condition: Improving Discharge Details Reason For Visit: Pulmonary Edema, PE Admit Date/Time: 08/13/23 03:58 Admit Provider: Herminio Duke Attending Provider: Herminio Duke Primary Care Provider: Jena Mitchell Hospital Course Hospital Course: This is an 78-year-old l female patient with a past medical ?history of paroxysmal atrial fibrillation with recent Watchman procedure off Eliquis having had a recent right hip replacement revised earlier this month presented to the ED at [facility] on 08/13/2023 with shortness of breath for one day and peripheral edema and hypoxemia with oxygen requirement. The patient also has a history of coronary artery disease, trans-catheter aortic valve replacement by cardiovascular surgery at [facility] ([facility]). She denied chest pain or discomfort with deep breathing but reported a history of a chronic aortic valve murmur In the ED CTA showed pulmonary edema and left lower segment pulmonary embolus (PE). Treatment with IV Lasix 80 mg initially and improved shortness of breath and hypoxemia. Lovenox 100 mg SC BID started for the treatment of PE as she was off ?Eliquis. A Munoz catheter was inserted to monitor diuresis. Troponin was negative, and the cardiac rhythm was atrial fibrillation with moderate ventricular response. The hospitalist admitted the patient to the medical surgical unit with telemetry for evaluation and management of heart failure exacerbation peripheral edema, and pulmonary embolism. ? During her stay, a venous Doppler of the lower extremity was performed and ruled out deep vein thrombosis in the context of diagnosed PE and recent hip surgery. IV Lasix 80 mg twice a day continued then the regimen changed to oral Lasix. Her peripheral edema improved with diuresis. The Munoz catheter was discontinued. After consulting Mann Matthews APRN from the cardiovascular team at [facility], the patient was transitioned to Eliquis and Lovenox stopped. Clopidogrel was also stopped. As per cardiovascular at [facility], the patient is to be scheduled for a six-month follow-up with them. The patient will go home on Eliquis 10 mg oral twice a day until 08/19/2023 inclusively. On 08/20/2023, the patient will start taking Eliquis 5mg oral twice a day. The patient will follow up with her PCP for the continuation of her treatment and montoring. The patient has also been referred to hematology/oncology for the pulmonary embolism. Home Meds and New Rx's Prescriptions: New acetaminophen 325 mg Tablet 325 - 650 mg PO Q6H Qty: 60 0RF Eliquis 5 mg Tablet 10 mg PO BID Qty: 70 0RF Rx Instructions: Take 10 mg (2 pills) every 12 hours until 08/19/2023 inclusively On 08/20/2023 start taking 5mg every 12 hours, your PCP will follow-up with you for refills potassium chloride [Klor-Con M20] 20 mEq Tablet,Er Particles/Crystals 20 meq PO DAILY Qty: 10 0RF furosemide 20 mg Tablet 60 mg PO BID@0830,1600 Qty: 180 0RF Continued gabapentin 100 mg capsule 100 mg PO QHS Hold Instructions: has not getting this medication from the pharmacy metoprolol succinate 25 mg tablet extended release 24 hr 25 mg PO DAILY diltiazem HCl [Cartia XT] 300 MG capsule,extended release 24hr 300 mg PO DAILY escitalopram oxalate 20 MG tablet 20 mg PO DAILY fluticasone propionate [Allergy Relief (fluticasone)] 50 mcg/actuation spray,suspension 2 spray intranasal DAILY PRN Rx Instructions: administer into each nostril aspirin [Adult Aspirin Regimen] 81 mg tablet,delayed release (DR/EC) 81 mg PO DAILY Patient Comments: pt states not taking meclizine 12.5 mg tablet See Rx Instructions PO DAILY PRN Rx Instructions: take 1-2 tablets every 8 hours as needed for nausea. rosuvastatin 20 mg tablet 20 mg PO DAILY Patient Comments: TAKE ONE TABLET BY MOUTH EVERY DAY bupropion HCl 100 mg tablet sustained-release 12 hr 100 mg PO DAILY levothyroxine 150 mcg tablet 150 mcg PO DAILY Patient Comments: TAKE ONE TABLET BY MOUTH EVERY MORNING irbesartan 75 mg tablet 75 mg PO QPM nitroglycerin 0.4 mg tablet, sublingual 0.4 mg sublingual Q5M PRN Patient Comments: PLACE ONE TABLET UNDER THE TONGUE EVERY 5 MINUTES FOR UP TO 3 DOSES NEEDED FOR CHEST PAIN. IF CHEST PAIN STILL PERSISTS CONTACT 911 spironolactone 25 mg tablet 12.5 mg PO DAILY Patient Comments: TAKE ONE-HALF TABLET BY MOUTH EVERY DAY melatonin 10 mg tablet 20 mg PO HS Patient Comments: Take 2 tablet by mouth at bedtime Invokana 100 mg tablet 100 mg PO DAILY Patient Comments: Not started, waiting for insurance approval. Will be replacing Jardiance Held Jardiance 10 mg tablet 10 mg PO DAILY Hold Instructions: Resume on 08/28/23. As per PCP Patient Comments: will stop once she starts Invokana acetaminophen 500 mg tablet 1,000 mg PO Q8H PRN Qty: 90 0RF Hold Instructions: Resume on 08/21/23. Rx Instructions: Take two tablets up to every 8 hours as needed for pain Discontinued clopidogrel 75 mg tablet 75 mg PO DAILY furosemide 40 mg tablet 40 mg PO BID Patient Comments: Take 1 tablet by mouth twice a day am and 2 pm meloxicam 15 mg tablet 15 mg PO DAILY Qty: 30 1RF Rx Instructions: Take one tablet daily for pain and inflammation No Action ferrous sulfate [Feosol] 325 mg (65 mg iron) tablet 325 mg PO Q OTHER DAY Discharge Instructions Instructions: Pulmonary Edema (DC) Stand Alone Forms: Nursing Discharge Form Referrals: HEMATOLOGY/ONC,[facility] [OTHER] - (Office will call you with appointment. Provoked PE post hip surgery This is an 78-year-old l female patient who has a history of paroxysmal atrial fibrillation with recent Watchman procedure off Eliquis having had a recent right hip replacement revised earlier this month presenting with progressive shortness of breath over the last day and peripheral edema with hypoxemia in the ED requiring oxygen supplementation after hip surgery. PE found post hip surgery, on Eliquis now and ASA as per [facility] cardiovascular (Dr. Campos team).) Jena Mitchell MD [Primary Care Provider] - 08/22/23 10:30 am (This is an 78-year-old l female patient who has a history of paroxysmal atrial fibrillation with recent Watchman procedure off Eliquis having had a recent right hip replacement revised earlier this month presenting with progressive shortness of breath over the last day and peripheral edema with hypoxemia in the ED requiring oxygen supplementation. Admitted and treated for PE and CHF exacerbation, discharged on Eliquis and ASA after consulting with cardiovascular at [facility]; Plavix was stopped.Needs Eliquis management by PCP, hematology referral and needs a 6-month from intervention f/u with [facility] cardiovascular; they have not given her appointment.) Equipment/Supplies: Walker Activity:: Activity as Tolerated Activity:: Activity as Tolerated Equipment/Supplies:: Walker Diet:: diabetic , heart healthy Discharge Orders Discharge Orders: Discharge Order (Routine); Ordered 08/15/23 Ordered By: Evie Ruiz DS: Summary Time Spent with Patient providing and/or coordinating discharge services: Greater than 30 minutes Status at Discharge Functional status at discharge: uses cane/walker Overall status at discharge: patient is not back to baseline Mental Status: mental status grossly normal Speech and Movement: speech and movement normal Mood: congruent mood Affect: normal affect Exam Narrative Exam Narrative: Constitutional The patient sits at the edge of the bed during examination from a recumbent position, no acute distress HENMT: Head is atraumatic, normocephalic. Facial structures with normal appearance Eyes: Well aligned, intact ROM Neck: Normal ROM, no meningeal signs Neuro:alert and oriented to self, person, place, time and situation. No neurological focal deficit. Resp: Normal respiratory pattern,on RA, speaks in full sentences, unlabored breathing, clear lung bilaterally Cardio: Tele A-Fib w MVR, S1, S2, no murmur, positive pulses to all 4 extremities GI: Abdomen is not distended, soft and non tender, bowel sounds are present : Negative Costovertebral angle tenderness, no bladder distension Back/spine/Pelvis: No back tenderness, normal alignment Integumentary: No skin lesions or rash, right hip surgical scar healed Extremities: strength 5/5 to bilateral lower and upper extremities Psych: RASS 0, congruent- engaged mood and normal- joyful affect. Psych Mental Status: mental status grossly normal Speech and Movement: speech and movement normal Mood: congruent mood Affect: normal affect DS: Data Vitals/I&O Vitals and I&O: Vital Signs Temperature 36.6 C 08/15/23 06:56 Temperature Source Tympanic 08/15/23 06:56 Pulse 80 08/15/23 06:56 Pulse Rhythm Regular 08/15/23 09:13 Pulse 81 08/13/23 04:31 Respiratory Rate 16 08/15/23 06:56 Respiratory Effort Normal, Non-Labored 08/15/23 09:13 Respiratory Depth Normal 08/15/23 09:13 Respiratory Pattern Normal 08/15/23 09:13 Blood Pressure 154/78 H 08/15/23 06:56 Blood Pressure Mean 90 08/13/23 04:31 Pulse Oximetry 94 08/15/23 06:56 Oxygen Delivery Method Room Air 08/15/23 06:56 Oxygen Flow Rate 0 08/15/23 06:56 Fraction of Inspired Oxygen (FIO2) 24 08/14/23 04:56 Pain Level 0 08/15/23 06:56 Intake & Output 08/14/23 08/14/23 08/15/23 11:59 23:59 11:59 Intake Total 360 / 810 450 / 810 Output Total 1150 / 1500 350 / 1500 800 / 800 Balance -790 / -690 100 / -690 -800 / -800 Weight 100.2 kg Intake: IV 200 / 200 Oral 360 / 610 250 / 610 Output: Urine 1150 / 1500 350 / 1500 800 / 800 Stool 0 / 0 Other: Urine Color Yellow Yellow Yellow Urine Appearance Clear Clear Clear Urine Odor None Strong Normal Comment Not sure how much was exactly voided, around 50ml putting a hat in toilet to see. Stool Size Moderate Moderate Stool Characteristics Soft Formed Formed Voiding Methods Indwelling Catheter Toilet Toilet Data Completed and Pending Labs on day of discharge: Labs from last 24 hours 08/15/23 06:20 WBC 4.93 RBC 3.49 L Hgb 11.0 L Hct 33.9 L MCV 97 H MCH 31.5 MCHC 32.4 RDW 15.3 H Plt Count 144 MPV 10.6 Immature Gran % 0.2 Neutrophils % 64.1 Lymphocytes % 15.8 Monocytes % 14.0 Eosinophils % 5.3 Basophils % 0.6 Nucleated RBC % 0.0 Absolute Neutrophils 3.16 Absolute Lymphocytes 0.78 L Absolute Monocytes 0.69 Absolute Eosinophils 0.26 Absolute Basophils 0.03 Sodium 142 Potassium 3.4 L Chloride 105 Carbon Dioxide 29.6 Anion Gap 7.4 BUN 31 H Creatinine 1.8 H Est GFR (CKD-EPI 2020) 28.13 Glucose 124 H Calcium 9.2 Magnesium 2.2 PFSH All Active Problems (Updated 08/14/23 @ 17:13 by Evie Ruiz APRN) Discharge planning issues (Acute) Hypokalemia (Acute) CHF (congestive heart failure) (Chronic) PAF (paroxysmal atrial fibrillation) (Chronic) Diabetes type 2, controlled (Chronic) Hypertension (Chronic) Pulmonary embolism (Acute) Pulmonary edema (Acute) Pleural effusion (Acute) Loosening of prosthesis of right hip joint (Acute) s/p Revision R Acetabular Component (07/29/23) History of revision of total hip arthroplasty (Acute 07/29/23) Strain of right iliopsoas muscle (Acute) Imbalance (Acute) Displaced fracture of greater trochanter of right femur, subsequent encounter for closed fracture with nonunion (Acute) Strain of right iliopsoas muscle (Acute) Unstable angina (Acute) Dyspnea (Acute) Angina at rest (Acute) Coronary atherosclerosis (Acute) Spinal stenosis (Acute) Left knee DJD (Acute) Depo-Medrol injection: 06/24/2022 Benign paroxysmal positional vertigo (Acute) Sleep apnea (Acute) Mitral regurgitation (Chronic) Diastolic dysfunction (Acute) CKD (chronic kidney disease) (Chronic) 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 She has had previous intubations with VL grade 1 view. Also easy mask with 90 mm OPA, and successful LMA placement in the past. Shortness of breath Nasal septal deviation Sensorineural hearing loss of both ears Recurrent UTI (03/15/16) Type 2 diabetes mellitus with diabetic peripheral angiopathy without gangrene Gastro-esophageal reflux disease without esophagitis Hyperlipidemia STEVENS (nonalcoholic steatohepatitis) TERRY (obstructive sleep apnea) PVD (peripheral vascular disease) Dyslipidemia Hypertension Hypothyroidism Diabetes mellitus Syncope SVT (supraventricular tachycardia) F/U with Dr. Sweet Lymphoma Breast Cancer Surgical History History of heart assist device WATCHMEN IN SITU History of lumpectomy of right breast Hx of tonsillectomy History of total left hip replacement History of esophagogastroduodenoscopy (EGD) (~07/2021) History of colonoscopy (~07/2021) Rotator Cuff Repair Partial mastectomy with sentinal node Pt. states this is incorrect, she had a lumpectomy Nail removal (toe) Excision of neck mass Social History Smoking/Tobacco Use Status: Never Smoking risk assessment performed?: Yes Alcohol Intake: never Drug use: Never Substance use type: does not use Housing: house Do you feel safe at home: Yes Do you feel safe in your relationship?: Yes Female Reproductive History Menstrual Menopause type: natural Time Spent with Patient Time Spent with Patient: 70-84 minutes4 Time was spent: preparing to see the patient(eg.review tests), ordering medications,tests, procedures, referring, communicating with other health youth care specialist, indepentently interpreting results, counseling the patient and care coordination
[2023-08-15 11:16] VITALS: BP 129/78; PULSE 73; RESP 19; TEMP 36; O2SAT 98
[2023-08-15] MEDS: Potassium Chloride 20 MEQ TABCR 40 MEQ PO (11:28)
== END 2023-08-15 13:58 | disposition home or self-care (01) ==
LOC: ER 03:23 → MS 05:00
PROVIDERS: Internal Medicine; Admitting Provider Family Medicine; Emergency Provider Emergency Medicine; PCP Family Medicine; Visit Provider Family Medicine
DX: I26.93 Single subsegmental thrombotic pulmonary embolism without acute cor pulmonale (principal); I13.0 Hypertensive heart and chronic kidney disease with heart failure and stage 1 through stage 4 chronic kidney disease, or unspecified chronic kidney disease; N18.32 Chronic kidney disease, stage 3b; I48.0 Paroxysmal atrial fibrillation; E87.6 Hypokalemia; I25.10 Atherosclerotic heart disease of native coronary artery without angina pectoris; R09.02 Hypoxemia; I50.9 Heart failure, unspecified; E11.22 Type 2 diabetes mellitus with diabetic chronic kidney disease; Z79.84 Long term (current) use of oral hypoglycemic drugs; Z95.818 Presence of other cardiac implants and grafts; Z96.641 Presence of right artificial hip joint; Z95.4 Presence of other heart-valve replacement; M48.00 Spinal stenosis, site unspecified; I25.118 Atherosclerotic heart disease of native coronary artery with other forms of angina pectoris; M17.12 Unilateral primary osteoarthritis, left knee; I34.0 Nonrheumatic mitral (valve) insufficiency; D64.9 Anemia, unspecified; K21.9 Gastro-esophageal reflux disease without esophagitis; I47.10 Supraventricular tachycardia, unspecified; I70.1 Atherosclerosis of renal artery; E11.51 Type 2 diabetes mellitus with diabetic peripheral angiopathy without gangrene; G47.33 Obstructive sleep apnea (adult) (pediatric); E78.5 Hyperlipidemia, unspecified; K75.81 Nonalcoholic steatohepatitis (NASH); H90.3 Sensorineural hearing loss, bilateral; E03.9 Hypothyroidism, unspecified; Z85.3 Personal history of malignant neoplasm of breast
CPT/HCPCS: 00123; 36415; 36416; 51702; 71275; 80048; 80053; 82805; 82962; 85027; 87637; 93005; 96365; 96366; 96367; 96372; 96374; 96375; 96376; 99285; 83735; 83880; 84443; 84484; 85025; 85610; 85730; 93010; 93306; 93970; 94660; 94760; 99223; 99233; 99239; J1650; J1940; J3475; J3480; J3490

== ENCOUNTER → 2023-08-21 00:20 | Outpatient (CLI) | payer OTHER, SELFPAY ==
--- NOTE | 2023-08-21 | DI.US_ITS ---
Exam(s) US PELVIS TRANSVAGINAL EXAM: US PELVIS TRANSVAGINAL CLINICAL HISTORY: F/U THICKENED ENDOMETRIUM,R93.89,BLEEDING,S/P ATTEMPTED ENDOMETRIAL BX TECHNIQUE: Transabdominal and transvaginal imaging was performed using standard protocol. COMPARISON: 15 April 2023 FINDINGS: UTERUS: Anteverted. 4.9 x 2.2 x 4.9 cm Endometrium: 3 mm , cystic spaces no longer present. Myometrium: Unremarkable. Cervix: Unremarkable. OVARIES: Not visualized CUL-DE-SAC: Free fluid: None. IMPRESSION: 1. Normal-appearing uterus with endometrial stripe within normal limits. 2. Ovaries not visualized DATA REPOSITORY:
== END ==
PROVIDERS: PCP Family Medicine; Visit Provider Obstetrics & Gynecology
DX: R93.89 Abnormal findings on diagnostic imaging of other specified body structures (principal)
CPT/HCPCS: 76830; 76856

== ENCOUNTER 2023-09-04 14:06 | Outpatient (REF) | payer OTHER, SELFPAY ==
[2023-09-03 20:15] LABS: HCT 38.5 % (36.0-46.0); HGB 12.6 g/dL (11.2-15.7); MCH 32.2 pg (27.0-33.0); MCHC 32.7 % (32.0-36.0); MCV 99 fL (80-95); MPV 11.1 fL (8.0-11.0); Platelet Count 217 10^3/uL (130-400); RBC 3.91 10^6/uL (3.93-5.22); RDW-SD 49.7 fL; WBC 9.63 10^3/uL (4.4-10.8)
[2023-09-03 20:37] LABS: Anion Gap 9.7 mmol/L (3-11); BUN 20 mg/dL (7-18); CO2 25.3 mmol/L (21.0-32.0); CREATININE 1.8 mg/dL (0.55-1.02); Chloride 105 mmol/L (98-107); Estimated GFR 28.13 (mL/min/1.73m2); Glucose 156 mg/dL (74-106); NT-proBNP 1053 pg/mL (<300); Potassium 4.2 mmol/L (3.5-5.1); Sodium 140 mmol/L (136-145)
== END 2023-09-04 14:07 | disposition home or self-care (01) ==
LOC: NCHCN 14:06
PROVIDERS: PCP Family Medicine; Visit Provider Family Medicine
DX: I50.30 Unspecified diastolic (congestive) heart failure (principal); I26.99 Other pulmonary embolism without acute cor pulmonale
CPT/HCPCS: 80048; 85027; 83880

== ENCOUNTER → 2023-09-08 14:07 | Outpatient (BNVA) | payer OTHER, SELFPAY | PROVIDERS: PCP Family Medicine; Visit Provider Student in an Organized Health Care Education/Training Program | DX: Z47.1 Aftercare following joint replacement surgery (principal); Z96.641 Presence of right artificial hip joint ==

== ENCOUNTER 2023-09-12 18:13 | Outpatient (REF) | payer OTHER, SELFPAY ==
[2023-09-12 18:32] LABS: HCT 40.1 % (36.0-46.0); HGB 12.8 g/dL (11.2-15.7); MCH 30.3 pg (27.0-33.0); MCHC 31.9 % (32.0-36.0); MCV 95 fL (80-95); MPV 10.9 fL (8.0-11.0); Platelet Count 182 10^3/uL (130-400); RBC 4.22 10^6/uL (3.93-5.22); RDW 13.6 % (11.7-14.6); RDW-SD 47.5 fL
[2023-09-12 19:00] LABS: ALT 29 U/L (14-59); AST 57 U/L (15-37); Albumin 3.6 g/dL (3.4-5.0); Alkaline Phosphatase 290 U/L (46-116); Anion Gap 9.3 mmol/L (3-11); BUN 21 mg/dL (7-18); Bilirubin, Total 0.7 mg/dL (0.2-1.0); CO2 31.7 mmol/L (21.0-32.0); CREATININE 1.5 mg/dL (0.55-1.02); Calcium 9.7 mg/dL (8.5-10.1); Chloride 103 mmol/L (98-107); Estimated GFR 35.01 (mL/min/1.73m2); Glucose 113 mg/dL (74-106); Lipase 47 U/L (16-77); Potassium 4.1 mmol/L (3.5-5.1); Sodium 144 mmol/L (136-145)
== END 2023-09-12 18:14 | disposition home or self-care (01) ==
LOC: NCHCN 18:13
PROVIDERS: PCP Family Medicine; Visit Provider Family Medicine
DX: R11.0 Nausea (principal); R10.9 Unspecified abdominal pain
CPT/HCPCS: 80053; 83690; 85027

== ENCOUNTER 2023-10-20 10:00 | Outpatient (RCR) | payer OTHER, SELFPAY | END 2023-10-23 23:59 | disposition home or self-care (01) | LOC: CR 10:00 | PROVIDERS: PCP Family Medicine; Visit Provider Internal Medicine Cardiovascular Disease | DX: I35.0 Nonrheumatic aortic (valve) stenosis (principal); Z51.89 Encounter for other specified aftercare | CPT/HCPCS: S9472 ==

== ENCOUNTER 2023-11-19 11:15 | Outpatient (RCR) | payer OTHER, SELFPAY ==
--- NOTE | 2023-11-12 16:03 | NUR.NOTE ---
Nursing Note:Patient's BP noted to be high in CR. Denies any headache, dizziness or any other symptoms. Patient notes she did not take her morning medications today. States she will go home and take these and recheck BP in approx 2 hours. S/S of when to seek care urgently. Patient states understanding and left ambulatory in no apparent distress. 1552: Nursing called to check in on patient and she notes her BP is now 116/60 after she took her medication when returning home form CR. States she is feeling well.
== END 2023-11-23 23:59 | disposition home or self-care (01) ==
LOC: CR 11:15
PROVIDERS: PCP Family Medicine; Visit Provider Internal Medicine Cardiovascular Disease
DX: I50.33 Acute on chronic diastolic (congestive) heart failure (principal); Z51.89 Encounter for other specified aftercare
CPT/HCPCS: S9472

== ENCOUNTER 2023-11-28 10:16 | Observation (INO) | payer OTHER, SELFPAY ==
[2023-11-28] VITALS (8 sets, daily range): BP systolic 120–154; BP diastolic 58–86; PULSE 58–75; RESP 15–22; TEMP 35.6–36.4; O2SAT 90–96
--- NOTE | 2023-11-28 | DI.CT_ITS ---
Exam(s) CT CHEST PE CTA EXAM: CT CHEST PE CTA CLINICAL HISTORY: hypoxia. TECHNIQUE: Imaging Protocol: Axial CT angiography was performed with multi-slice acquisition and mu lti-planar reconstructions as well as axial, coronal and sagittal MIP reconstructions. CONTRAST MATERIAL: Intravenous: Omnipaque 350 Contrast volume:80 mL COMPARISON: CT CT CHEST PE CTA from 04/18/2021 CR XR CHEST 2V PA LATERAL from 07/11/[address] CHEST PE CTA from 08/13/2023 CR XR PORTABLE CHEST AP from 11/28/2023 FINDINGS: Pulmonary Arteries: No evidence of filling defect to suggest pulmonary emboli. Tracheobronchial tree: No mucous plugging. Mediastinum and Shelley: No dominant adenopathy or fluid collection. Pulmonary parenchyma: Exam mildly limited by respiratory motion and expiratory changes. Atelectasis adjacent to right pleural effusion. No consolidation or dominant measurable mass. Pleura: Moderate-sized right pleural effusion. Small right pleural effusion. Heart: The heart is mildly dilated. Aortic and tricuspid valve replacements. Coronary artery calcifi cations are seen. Aorta: Thoracic aorta non-dilated. No dissection. Atherosclerotic changes. Upper abdomen: Cirrhotic liver. Left upper quadrant varices. Bones: Degenerative changes in the thoracic spine. Tubes, Catheters, and Lines: None Soft tissues: Unremarkable. IMPRESSION: No evidence of pulmonary embolism. Moderate size right pleural effusion. Small left pleural effusion RADIATION DOSE DELIVERED: Total DLP DATA REPOSITORY: All CT scans at this facility are submitted to the National Radiology Data Registry (NRDR) Dose Index Registry (DIR) with the [employer] (A[employer]). RADIATION OPTIMIZATION: All CT scans at this facility use at least one of these dose optimization te chniques: automated exposure control; mA and/or kV adjustment per patient size (includes targeted exa ms where dose is matched to clinical indication); or iterative reconstruction.
--- NOTE | 2023-11-28 10:15 | RT.EKG_ITS ---
APPROVED REPORT Exam: Resting ECG Reason for Exam: Shortness of breath, heart failure. Patient Location: E HR:72 bpm ECG Measurements Heart Rate 72 AXIS TN [id number] P [id number] QRSd 70 QRS 63 QT 404 T 31 QTc 442 Conclusion Atrial fibrillation...? atrial activity Low voltage, extremity and precordial leads...extremity<0.5mV, precordial<1.0mV AFIB, NORMAL AXIS, NO STEMI, NO SIGNIFICANT CHANGES FROM PREVIOUS
--- NOTE | 2023-11-28 11:00 | DI.RAD_ITS ---
Exam(s) XR PORTABLE CHEST AP EXAM: XR PORTABLE CHEST AP CLINICAL HISTORY: SHORTNESS OF BREATH. TECHNIQUE: 2D digital imaging was performed. COMPARISON: CR XR CHEST 2V PA LATERAL from 07/11/2023 FINDINGS: Single AP portable view. Heart size is upper normal. The mediastinum is not widened. No new infiltrates but there is a small-moderate size right pleural effusion again noted, unchanged. Mild pulmonary venous hypertension pattern also evident. This patient has an aortic valve TAVR agai n evident. IMPRESSION: Aortic valve TAVR. Pulmonary venous congestion and persistent unchanged size right pleural effusion. DATA REPOSITORY: RADIATION DOSE DELIVERED:
--- NOTE | 2023-11-28 11:02 | ED.GENADUL_ITS ---
Discharge Plan Disposition Patient Disposition: Admit to [facility] Condition: Improving Discharge Details Clinical Impression: CHF (congestive heart failure), Dyspnea, Hypoxia, Decreased renal function Admit Date/Time: 11/28/23 16:06 Admit Provider: Nico Chavez Attending Provider: Nico Chavez Primary Care Provider: Jena Mitchell ED Provider: Velia Gurrola Discharge Data Discharge Date/Time-TO BE ENTERED AT DEPARTURE: 11/28/23 17:00 HPI General Date/Time Provider Initiated Documentation: 11/28/23 11:02 . Information obtained by: patient . HPI Narrative: Time seen was 1103 in bed 9. The patient is an 78-year-old female, with a history of aortic valve replacement or possibly a TAVR who also has a history of atrial fibrillation treated with a watchman, who was sent from cardiac rehab for shortness of breath. The patient states she has been short of breath primarily with exertion for several weeks. She takes 80 mg of Lasix daily and tells me she does not think it is working. She denies any increase in salt. Her home O2 sat has been 89 to 91%. She also endorses feeling exhausted but denies any chest pain. She also states she has had bilateral leg swelling. She did have surgery on her right leg in March 2023. She denies any fevers or chills. She has no history of OK but did have a cardiac stent placed. She tells me she has had 2 small strokes with no real residual deficits and because of that she has gone to cardiac rehab. She has had bilateral leg swelling. She denies any paroxysmal nocturnal dyspnea. She denies any chest pain. She denies eating anything with increased sodium recently. She denies any fevers or chills. She denies any URI symptoms. She denies any asymmetric leg swelling. She denies abdominal pain or dysuria. She feels improved with supplemental oxygen. She does not use supplemental oxygen at home Related Data Home Medications Medication Instructions Recorded Confirmed diltiazem HCl 300 mg 300 mg PO DAILY 02/29/16 11/28/23 capsule,extended release 24 hr (Cartia XT) escitalopram oxalate 20 mg tablet 20 mg PO DAILY 02/29/16 11/28/23 gabapentin 100 mg capsule 100 mg PO QHS 12/11/20 11/28/23 fluticasone propionate 50 2 spray intranasal DAILY PRN 04/25/21 11/28/23 mcg/actuation nasal spray,suspension (Allergy Relief (fluticasone)) meclizine 12.5 mg tablet See Rx Instructions PO DAILY PRN 10/25/21 11/28/23 aspirin 81 mg tablet,delayed 81 mg PO DAILY 06/19/22 11/28/23 release (Adult Aspirin Regimen) rosuvastatin 20 mg tablet 20 mg PO DAILY 02/07/23 11/28/23 empagliflozin 10 mg tablet 10 mg PO DAILY 05/20/23 11/28/23 (Jardiance) metoprolol succinate 25 mg 25 mg PO DAILY 05/20/23 11/28/23 tablet,extended release 24 hr ferrous sulfate 325 mg (65 mg 325 mg PO Q OTHER DAY 07/08/23 11/28/23 iron) tablet (Feosol) acetaminophen 500 mg tablet 1,000 mg (2 x 500 mg) PO Q8H PRN 07/29/23 11/28/23 pain #90 tabs bupropion HCl 100 mg tablet,12 hr 100 mg PO DAILY 08/13/23 11/28/23 sustained-release canagliflozin 100 mg tablet 100 mg PO DAILY 08/13/23 11/28/23 (Invokana) irbesartan 75 mg tablet 75 mg PO QPM 08/13/23 11/28/23 levothyroxine 150 mcg tablet 150 mcg PO DAILY 08/13/23 11/28/23 melatonin 10 mg tablet 20 mg PO HS 08/13/23 11/28/23 nitroglycerin 0.4 mg sublingual 0.4 mg sublingual Q5M PRN 08/13/23 11/28/23 tablet spironolactone 25 mg tablet 12.5 mg PO DAILY 08/13/23 11/28/23 acetaminophen 325 mg tablet 325 - 650 mg (1 - 2 x 325 mg) PO 08/15/23 11/28/23 Q6H #60 tabs apixaban 5 mg tablet (Eliquis) 10 mg (2 x 5 mg) PO BID Pulmonary 08/15/23 11/28/23 embolism #70 tabs furosemide 20 mg tablet 60 mg (3 x 20 mg) PO BID@0830,1600 08/15/23 11/28/23 #180 tabs potassium chloride 20 mEq 20 meq PO DAILY #10 tabs 08/15/23 11/28/23 tablet,extended release(part/cryst) (Klor-Con M) Previous Rx's Medication Instructions Recorded acetaminophen 500 mg tablet 1,000 mg (2 x 500 mg) PO Q8H PRN 07/29/23 pain #90 tabs acetaminophen 325 mg tablet 325 - 650 mg (1 - 2 x 325 mg) PO 08/15/23 Q6H #60 tabs apixaban 5 mg tablet (Eliquis) 10 mg (2 x 5 mg) PO BID Pulmonary 08/15/23 embolism #70 tabs furosemide 20 mg tablet 60 mg (3 x 20 mg) PO BID@0830,1600 08/15/23 #180 tabs potassium chloride 20 mEq 20 meq PO DAILY #10 tabs 08/15/23 tablet,extended release(part/cryst) (Klor-Con M) Allergies Allergy/AdvReac Type Severity Reaction Status Date / Time tamoxifen Allergy Intermediate liver Verified 09/08/23 14:24 complications amlodipine AdvReac Intermediate leg pain Verified 09/08/23 14:24 atenolol AdvReac Intermediate leg pain Verified 09/08/23 14:24 doxazosin AdvReac Intermediate leg pain Verified 09/08/23 14:24 enalapril AdvReac Intermediate leg pain Verified 09/08/23 14:24 glipizide AdvReac Intermediate body aches Verified 09/08/23 14:24 lisinopril AdvReac Intermediate leg pain Verified 09/08/23 14:24 sertraline AdvReac Intermediate leg pain Verified 09/08/23 14:24 simvastatin [From Zocor] AdvReac Intermediate leg pain Verified 09/08/23 14:24 Aaoavzs-GII-AeX Reductase AdvReac Intermediate leg pains Verified 09/08/23 14:24 Inhibitor [Jjbodjy-Rhl-Wjm Reductase Inhibitor] ticlopidine AdvReac Intermediate leg pain Verified 09/08/23 14:24 valsartan AdvReac Intermediate leg pain Verified 09/08/23 14:24 General Stated Complaint: SOB JUANITA: 3 Review of Systems Narrative: see hpi Exam Narrative Exam Narrative: The patient is a well-developed well-nourished female who does appear mildly dyspneic at rest. She is slightly hypertensive with a blood pressure of 148/77. She is not tachycardic tachypneic or febrile. Her O2 sat on supplemental oxygen is 93%. She is able to speak in full sentences. Her GCS is 15. Const General: cooperative, healthy appearing, comfortable, no acute distress, well developed, well groomed and well hydrated Nutritional Appearance: average body habitus and well nourished Orientation: alert, awake and oriented x3 HENMT Head: normal to inspection, normocephalic and atraumatic Ears: hearing grossly normal bilaterally and external ears normal General nose exam: external nose normal, nares normal and no nasal discharge Face and sinus: normal facial exam, sinuses nontender and face symmetric Mouth: oral mucosae normal, lip normal, tongue normal, oropharynx normal, moist mucous membranes and other (Normal phonation. The patient is handling secretions.) Throat: posterior oropharynx normal and uvula midline Eyes General: appearance normal, both eyes and all related structures Eyelids: eyelids normal Conjunctivae: conjunctivae normal Sclera: sclerae normal Cornea: corneas normal Pupils: PERRL EOM: EOM intact bilaterally and No nystagmus Neck Neck: normal visual inspection, full ROM, no lymphadenopathy, no meningeal sig ns, trachea midline and supple Lymphatic: no lymphadenopathy noted Other: No audible bruits Chest Chest: normal inspection of the chest Other: No sternotomy Resp Effort & Inspection: normal respiratory effort, able to speak in complete sentences, no audible wheezes, no nasal flaring, no respiratory distress, no retractions, no stridor, not tachypneic, no tracheal deviation, no use of accessory muscles, No prolonged expiratory phase and other (Normal inspiratory to expiratory ratio.) Auscultation: clear to auscultation bilaterally, rales (Bibasilar), no rhonchi, no wheezes and no rubs Tactile Fremitus: tactile fremitus absent Cardio Jugular venous pressure: no JVD Palpation: normal PMI Rate: regular rate Rhythm: abnormal rhythm Heart Sounds: S1 normal, S2 normal, no gallops, no murmurs and no rubs Pulses: brachial pulses present and radial pulses present GI Inspection: normal to inspection and non-distended Palpation: soft, no hepatosplenomegaly, no guarding and nontender Percussion: normal to percussion Auscultation: normal bowel sounds General: No CVA tenderness Back/Spine/Pelvis Back: no CVA tenderness and No back tenderness Cervical Spine: normal cervical lordosis, cervical ROM normal, No cervical muscular tenderness, No pain with cervical ROM, No cervical spinal tenderness and No step off deformity Thoracic/Lumbar Spine: thoracic and lumbar spine normal to inspection, No thoracic spinal tenderness and No lumbar spinal tenderness Pelvis: no pain with anterior-posterior compression and no pain with lateral compression Skin General skin exam: no rashes or lesions noted, turgor normal, no petechiae, no purpura and other (Skin is normal for ethnicity.) Lesions: no lesions Rashes: no rashes Trauma: no lacerations or abrasions Neuro General: patient alert, patient awake, patient oriented x3, moves all extremities, no meningeal signs, no focal motor deficits and CN's II-XI intact bilaterally Cranial Nerves: CN's II-XI intact bilaterally, PERRL, accommodation normal, EOM intact bilaterally, no nystagmus, facial strength normal, tongue midline, hearing normal and no nystagmus Cognition: normal cognition Gait: normal gait Motor: muscle tone normal throughout and strength 5/5 throughout Sensory Exam: no sensory deficits noted Extrem General: normal to inspection, full ROM, capillary refill normal, no clubbing, cyanosis or edema and no calf tenderness Other: The patient has bilateral symmetric pedal edema from the feet up to the knees. It is pitting and 3+. Distal pulses are intact. There is no cyanosis. There are no embolic lesions. She has full range of motion of her legs. No evidence of cellulitis. Psych Appearance: grossly normal Affect: normal affect Attitude: cooperative Thought Process: normal Thought Content: normal Insight: insight good Judgment: judgment good Other: The patient appears to have capacity make medical decisions. Course 3:23 PM I reviewed the patient's labs and radiographs. She has put out a significant amount of urine according to the nursing staff but still requires oxygen. She has an elevated D-dimer but her renal function is impaired and she cannot get CTA of the chest. I will page the hospitalist and update the rodrigo ent. I have updated the patient. She inquired about being discharged home on oxygen and I explained it is not that simple. She feels much improved. I am awaiting callback from Dr. Chavez the hospitalist. 1558: I have discussed the case with Dr. Chavez who accepted the patient and asked that I order a VQ scan. I have done that. Vital Signs Vital signs: Vital Signs Temperature 36.4 C 11/28/23 10:25 Pulse 75 11/28/23 10:25 Respiratory Rate 20 11/28/23 10:25 Blood Pressure 148/77 H 11/28/23 10:25 Pulse Oximetry 93 11/28/23 10:25 Temperature 36.4 C 11/28/23 10:25 Temperature Source Temporal Artery Scan 11/28/23 10:25 Pulse 75 11/28/23 10:25 Respiratory Rate 22 11/28/23 10:51 Respiratory Effort Short of Breath 11/28/23 10:51 Respiratory Depth Normal 11/28/23 10:51 Respiratory Pattern Normal 11/28/23 10:51 Blood Pressure 148/77 H 11/28/23 10:25 Blood Pressure Position Sitting 11/28/23 10:25 Pulse Oximetry 93 11/28/23 10:25 Oxygen Delivery Method Nasal Cannula 11/28/23 10:25 Oxygen Flow Rate 2 11/28/23 10:25 Medical Decision Making This is an 78-year-old female who presents with gradually increasing shortness of breath. She has had an aortic valve replacement and has had bilateral leg swelling and dyspnea on exertion. She has had a prior stent placement and does have a history of atrial fibrillation. She tells me she is not sure if she has ever had a history of congestive heart failure. She does have rales in the bibasilar area and significant pedal edema which extends to her calves. They do not appear asymmetrically swollen. Other considerations are PE since she does have atrial fibrillation although it is unlikely since she has an implanted Watchman which she feels is very effective. She is not tachycardic and is u nlikely that she is having a rapid ventricular response. Other considerations are pneumonia, other infection such as COVID RSV or influenza although she has not felt well and denies any URI symptoms. My plan is to obtain a a portable chest x-ray, EKG checking for pneumonia and congestive heart failure. I will check a COVID RSV and influenza. We will check a CBC since anemia could cause shortness of breath. I will check a comprehensive metabolic panel and check her albumin and I will give her IV Lasix. If she diuresis and no longer has an oxygen requirement she will be discharged home though I think it more likely that she will stay overnight for diuresis. Differential Diagnosis Differential Diagnosis: CHF, pneumonia, PE, hypoalbuminemia, renal failure Medical Records Medical records reviewed: Yes I reviewed the patient's medical records. Imaging Data Radiologic Study: Imaging: X-Ray (Portable chest) Radiologist's impression: Aortic valve TAVR. Pulmonary venous congestion and persistent unchanged size right pleural effusion. Lab Data Lab results reviewed: Yes I reviewed the patient's lab results. Lab results narrative: Normal white count. Normal H&H. No significant abnormalities on differential. Elevated D-dimer. Elevated proBNP. Slightly low albumin. Slightly low TSH and slightly elevated free T4. Urine demonstrates trace urine leukocyte Estrace. I have ordered a culture. Glucosuria. COVID influenza and RSV are negative ECG Data Attestation: I personally reviewed and interpreted this ECG (s) as follows: Prior ECG tracings: available for review Quality:SDOH Health Related Social Needs: No Data to Display Critical Care Time Critical Care Time Critical Care Time: Yes Total Critical Care Time: 55 Attestation: This includes time at the bedside. Review of old records, interpretation of EKG, review and interpretation of labs. Reassessment and updating of the patient and consultation with the hospitalist [facility] All Active Problems CKD (chronic kidney disease) (Chronic) PAF (paroxysmal atrial fibrillation) (Acute) Acute hypoxic respiratory failure (Acute) Decreased renal function (Acute) Hypoxia (Acute) CHF (congestive heart failure) (Chronic) Diabetes type 2, controlled (Chronic) Hypertension (Chronic) Pulmonary embolism (Acute) Loosening of prosthesis of right hip joint (Acute) s/p Revision R Acetabular Component (07/29/23) History of revision of total hip arthroplasty (Acute 07/29/23) Strain of right iliopsoas muscle (Acute) Imbalance (Acute) Displaced fracture of greater trochanter of right femur, subsequent encounter for closed fracture with nonunion (Acute) Strain of right iliopsoas muscle (Acute) Unstable angina (Acute) Dyspnea (Acute) Angina at rest (Acute) Coronary atherosclerosis (Acute) Spinal stenosis (Acute) Left knee DJD (Acute) Depo-Medrol injection: 06/24/2022 Benign paroxysmal positional vertigo (Acute) Sleep apnea (Acute) Mitral regurgitation (Chronic) Diastolic dysfunction (Acute) 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 She has had previous intubations with VL grade 1 view. Also easy mask with 90 mm OPA, and successful LMA placement in the past. Shortness of breath Nasal septal deviation Sensorineural hearing loss of both ears Recurrent UTI (03/15/16) Type 2 diabetes mellitus with diabetic peripheral angiopathy without gangrene Gastro-esophageal reflux disease without esophagitis Hyperlipidemia STEVENS (nonalcoholic steatohepatitis) TERRY (obstructive sleep apnea) PVD (peripheral vascular disease) Dyslipidemia Hypertension Hypothyroidism Diabetes mellitus Syncope SVT (supraventricular tachycardia) F/U with Dr. Sweet Lymphoma Breast Cancer Surgical History History of heart assist device WATCHMEN IN SITU History of lumpectomy of right breast Hx of tonsillectomy History of total left hip replacement History of esophagogastroduodenoscopy (EGD) (~07/2021) History of colonoscopy (~07/2021) Rotator Cuff Repair Partial mastectomy with sentinal node Pt. states this is incorrect, she had a lumpectomy Nail removal (toe) Excision of neck mass Social History Smoking/Tobacco Use Status: Never Smoking risk assessment performed?: Yes Alcohol Intake: never Drug use: Never Substance use type: does not use Housing: house Do you feel safe at home: Yes Do you feel safe in your relationship?: Yes Female Reproductive History Menstrual Menopause type: natural
[2023-11-28 12:06] LABS: Abs Immature Grans 0.02 10^3/uL (0.0-0.06); Absolute Basophil Count 0.05 10^3/uL (0.0-0.2); Absolute Eosinophil Count 0.45 10^3/uL (0.0-0.7); Absolute Lymphocyte Count 1.13 10^3/uL (1.2-3.4); Absolute Monocyte Count 0.75 10^3/uL (0.1-0.8); Absolute Neutrophil Count 3.48 10^3/uL (1.2-6.7); BE (Venous) 6 mmol/L (-2-3); Basophils % 0.9; Eosinophils % 7.7; HCO3 (Venous) 31 mmol/L (23-28); HCT 36.6 % (36.0-46.0); HGB 11.3 g/dL (11.2-15.7); Immature Grans % 0.3; Lymphocytes % 19.2; MCHC 30.9 % (32.0-36.0); MCV 91 fL (80-95); MPV 11.2 fL (8.0-11.0); Monocytes % 12.8; Neutrophils % 59.1; O2 Sat (Venous) 63 %; Platelet Count 166 10^3/uL (130-400); RBC 4.04 10^6/uL (3.93-5.22); RDW 14.6 % (11.7-14.6); RDW-SD 48.3 fL; TCO2 (Venous) 29 mmol/L (24-29); WBC 5.88 10^3/uL (4.4-10.8); pCO2 (Venous) 51 mmHg (41-51); pH (Venous) 7.39 (7.31-7.41); pO2 (Venous) 34 mmHg
[2023-11-28 12:14] LABS: COVID-19 PCR Negative (Negative); Influenza A PCR Negative (Negative); Influenza B PCR Negative (Negative); RSV PCR Negative (Negative)
[2023-11-28] MEDS: Furosemide 100 MG/10 ML VIAL 80 MG IVP (12:14)
[2023-11-28 12:18] LABS: Bilirubin Negative (Negative); Blood Negative (Negative); Clarity Clear (Clear); Glucose 500 mg/dL (Negative); Ketones Negative (Negative); Leukocyte Esterase Trace (Negative); Nitrite Negative (Negative); Specific Gravity 1.015 (1.005-1.025); Urobilinogen 0.2 mg/dL (Up to 0.2)
[2023-11-28 12:22] LABS: Source Nasopharynx
[2023-11-28 12:27] LABS: Bacteria Few HPF (Negative); Crystals Negative HPF (Negative); Epithelial Cells Rare HPF (Negative); Mucus Negative (Negative); Other Cells Negative (Negative); RBC Negative HPF (0-2)
[2023-11-28 12:27] LABS: INR 1.2 (0.9-1.1); PTT Activated 23.6 sec (23.6-32.8); Prothrombin Time 11.8 sec (9.1-11.1)
[2023-11-28 12:28] LABS: C & S Indicated? No; Casts Negative LPF (Negative)
[2023-11-28 12:42] LABS: D-Dimer 2730 ng/mlFEU (<500)
[2023-11-28 12:46] LABS: ALT 21 U/L (14-59); AST 35 U/L (15-37); Albumin 3.3 g/dL (3.4-5.0); Alkaline Phosphatase 212 U/L (46-116); Anion Gap 8.5 mmol/L (3-11); BUN 27 mg/dL (7-18); Bilirubin, Total 0.9 mg/dL (0.2-1.0); CO2 30.5 mmol/L (21.0-32.0); CREATININE 1.8 mg/dL (0.55-1.02); Chloride 106 mmol/L (98-107); Estimated GFR 28.13 (mL/min/1.73m2); Glucose 122 mg/dL (74-106); Magnesium 2.3 mg/dL (1.8-2.4); NT-proBNP 1035 pg/mL (<300); Potassium 3.5 mmol/L (3.5-5.1); Sodium 145 mmol/L (136-145); TSH (W/Ref FT4) 0.32 uIU/mL (0.36-3.74); Total Protein 6.7 g/dL (6.4-8.2); Troponin I < 50 ng/L (< or =60)
[2023-11-28 13:24] LABS: FREE T4 1.51 ng/dL (0.76-1.46)
[2023-11-28 14:50] LABS: Troponin I < 50 ng/L (< or =60)
--- NOTE | 2023-11-28 16:11 | HPE_ITS ---
Date of service: 11/28/23 Time of Service: 16:11 Assessment and Plan Assessment and plan (1) Acute hypoxic respiratory failure: Status: Acute Assessment and plan: admitted to med/surg on oxygen, wean as able. CTA for PE was negative for pulmonary embolism. 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 She did receive IV contrast this evening so will hold all nephrotoxic medications She will be given 1 L of gentle IV hydration overnight and recheck labs in the morning Qualifiers: Chronic kidney disease stage: stage 3 (moderate) Chronic kidney disease stage 3 subtype: stage 3b (GFR 30-44) Qualified Code(s): N18.32 - Chronic kidney disease, stage 3b (5) PAF (paroxysmal atrial fibrillation): Status: Acute Assessment and plan: She is not anticoagulated, s/p Watchman procedure Continue Metroprolol discussed with Dr Chavez History of Present Illness History of Present Illness Chief Complaint: Shortness of breath Narrative: This is an 78-year-old female patient past medical history significant for pulmonary embolism diabetes mellitus type 2 paroxysmal atrial fibrillation, diastolic heart failure, sleep apnea treated with CPAP, cirrhosis of the liver, chronic kidney disease who presented to the emergency department with worsening shortness of breath. She states this has been ongoing since August but worsened recently. She states while at cardiac rehab today she has significant shortness of breath so they referred her to the emergency department. She has had bilateral lower extremity swelling. She states her symptoms are similar to symptoms that she had in July where she was diagnosed with a pulmonary embolism. She states that she was prescribed Eliquis to treat her pulmonary embolism but there was a to mixup with the pharmacy so by the time she got her medications she states it was to be finished so she never started taking it. Her workup in the emergency department was thought to be more related to heart failure so she was given 80 mg of IV Lasix. She was diuresed 1 L of urine but had no improvement in her symptoms continuing to require oxygen. Her D-dimer was elevated at 2900 and in light of the fact that she reportedly never treated her pulmonary embolism I do feel a CT for PE protocol is essential at this point. Imtiaz is on-call Review of Systems All systems reviewed & are unremarkable except as noted in HPI and below PFSH All Active Problems (Updated 11/28/23 @ 21:27 by Sugey Kaplan NP) Heart failure with preserved left ventricular function (Acute) CKD (chronic kidney disease) (Chronic) PAF (paroxysmal atrial fibrillation) (Acute) Acute hypoxic respiratory failure (Acute) Decreased renal function (Acute) Hypoxia (Acute) CHF (congestive heart failure) (Chronic) Diabetes type 2, controlled (Chronic) Hypertension (Chronic) Pulmonary embolism (Acute) Loosening of prosthesis of right hip joint (Acute) s/p Revision R Acetabular Component (07/29/23) History of revision of total hip arthroplasty (Acute 07/29/23) Strain of right iliopsoas muscle (Acute) Imbalance (Acute) Displaced fracture of greater trochanter of right femur, subsequent encounter for closed fracture with nonunion (Acute) Strain of right iliopsoas muscle (Acute) Unstable angina (Acute) Dyspnea (Acute) Angina at rest (Acute) Coronary atherosclerosis (Acute) Spinal stenosis (Acute) Left knee DJD (Acute) Depo-Medrol injection: 06/24/2022 Benign paroxysmal positional vertigo (Acute) Sleep apnea (Acute) Mitral regurgitation (Chronic) Diastolic dysfunction (Acute) 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 She has had previous intubations with VL grade 1 view. Also easy mask with 90 mm OPA, and successful LMA placement in the past. Shortness of breath Nasal septal deviation Sensorineural hearing loss of both ears Recurrent UTI (03/15/16) Type 2 diabetes mellitus with diabetic peripheral angiopathy without gangrene Gastro-esophageal reflux disease without esophagitis Hyperlipidemia STEVENS (nonalcoholic steatohepatitis) TERRY (obstructive sleep apnea) PVD (peripheral vascular disease) Dyslipidemia Hypertension Hypothyroidism Diabetes mellitus Syncope SVT (supraventricular tachycardia) F/U with Dr. Sweet Lymphoma Breast Cancer Surgical History History of heart assist device WATCHMEN IN SITU History of lumpectomy of right breast Hx of tonsillectomy History of total left hip replacement History of esophagogastroduodenoscopy (EGD) (~07/2021) History of colonoscopy (~07/2021) Rotator Cuff Repair Partial mastectomy with sentinal node Pt. states this is incorrect, she had a lumpectomy Nail removal (toe) Excision of neck mass Social History Smoking/Tobacco Use Status: Never Smoking risk assessment performed?: Yes Alcohol Intake: never Drug use: Never Substance use type: does not use Housing: house Do you feel safe at home: Yes Do you feel safe in your relationship?: Yes Female Reproductive History Menstrual Menopause type: natural Meds Allergies and Home Medications Allergies Allergy/AdvReac Type Severity Reaction Status Date / Time tamoxifen Allergy Intermediate liver Verified 09/08/23 14:24 complications amlodipine AdvReac Intermediate leg pain Verified 09/08/23 14:24 atenolol AdvReac Intermediate leg pain Verified 09/08/23 14:24 doxazosin AdvReac Intermediate leg pain Verified 09/08/23 14:24 enalapril AdvReac Intermediate leg pain Verified 09/08/23 14:24 glipizide AdvReac Intermediate body aches Verified 09/08/23 14:24 lisinopril AdvReac Intermediate leg pain Verified 09/08/23 14:24 sertraline AdvReac Intermediate leg pain Verified 09/08/23 14:24 simvastatin [From Zocor] AdvReac Intermediate leg pain Verified 09/08/23 14:24 Xqnbakr-MBS-WkR Reductase AdvReac Intermediate leg pains Verified 09/08/23 14:24 Inhibitor [Wszafhh-Hiv-Cej Reductase Inhibitor] ticlopidine AdvReac Intermediate leg pain Verified 09/08/23 14:24 valsartan AdvReac Intermediate leg pain Verified 09/08/23 14:24 Home Medications Medication Instructions Recorded Confirmed Type diltiazem HCl 300 mg 300 mg PO DAILY 02/29/16 11/28/23 History capsule,extended release 24 hr (Cartia XT) escitalopram oxalate 20 mg tablet 20 mg PO DAILY 02/29/16 11/28/23 History gabapentin 100 mg capsule 100 mg PO QHS 12/11/20 11/28/23 History fluticasone propionate 50 2 spray intranasal DAILY PRN 04/25/21 11/28/23 History mcg/actuation nasal spray,suspension (Allergy Relief (fluticasone)) meclizine 12.5 mg tablet See Rx Instructions PO DAILY PRN 10/25/21 11/28/23 History aspirin 81 mg tablet,delayed 81 mg PO DAILY 06/19/22 11/28/23 History release (Adult Aspirin Regimen) rosuvastatin 20 mg tablet 20 mg PO DAILY 02/07/23 11/28/23 History empagliflozin 10 mg tablet 10 mg PO DAILY 05/20/23 11/28/23 History (Jardiance) metoprolol succinate 25 mg 25 mg PO DAILY 05/20/23 11/28/23 History tablet,extended release 24 hr ferrous sulfate 325 mg (65 mg 325 mg PO Q OTHER DAY 07/08/23 11/28/23 History iron) tablet (Feosol) acetaminophen 500 mg tablet 1,000 mg (2 x 500 mg) PO Q8H PRN 07/29/23 11/28/23 Rx pain #90 tabs bupropion HCl 100 mg tablet,12 hr 100 mg PO DAILY 08/13/23 11/28/23 History sustained-release canagliflozin 100 mg tablet 100 mg PO DAILY 08/13/23 11/28/23 History (Invokana) irbesartan 75 mg tablet 75 mg PO QPM 08/13/23 11/28/23 History levothyroxine 150 mcg tablet 150 mcg PO DAILY 08/13/23 11/28/23 History melatonin 10 mg tablet 20 mg PO HS 08/13/23 11/28/23 History nitroglycerin 0.4 mg sublingual 0.4 mg sublingual Q5M PRN 08/13/23 11/28/23 History tablet spironolactone 25 mg tablet 12.5 mg PO DAILY 08/13/23 11/28/23 History acetaminophen 325 mg tablet 325 - 650 mg (1 - 2 x 325 mg) PO 08/15/23 11/28/23 Rx Q6H #60 tabs apixaban 5 mg tablet (Eliquis) 10 mg (2 x 5 mg) PO BID Pulmonary 08/15/23 11/28/23 Rx embolism #70 tabs furosemide 20 mg tablet 60 mg (3 x 20 mg) PO BID@0830,1600 08/15/23 11/28/23 Rx #180 tabs potassium chloride 20 mEq 20 meq PO DAILY #10 tabs 08/15/23 11/28/23 Rx tablet,extended release(part/cryst) (Klor-Con M) Results Labs 11/28/23 11:50 11/28/23 11:50 Labs: Laboratory Results - last 24 hr 11/28/23 11/28/23 11/28/23 11:31 11:50 11:50 WBC 5.88 RBC 4.04 Hgb 11.3 Hct 36.6 MCV 91 MCH 28.0 MCHC 30.9 L RDW 14.6 Plt Count 166 MPV 11.2 H Immature Gran % 0.3 Neutrophils % 59.1 Lymphocytes % 19.2 Monocytes % 12.8 Eosinophils % 7.7 Basophils % 0.9 Nucleated RBC % 0.0 Absolute Neutrophils 3.48 Absolute Lymphocytes 1.13 L Absolute Monocytes 0.75 Absolute Eosinophils 0.45 Absolute Basophils 0.05 PT 11.8 H INR 1.2 H APTT 23.6 D-Dimer 2730 H VBG pH 7.39 VBG pCO2 51 VBG pO2 34 VBG HCO3 31 H VBG Total CO2 29 VBG O2 Saturation 63 VBG Base Excess 6 H Sodium 145 Potassium 3.5 Chloride 106 Carbon Dioxide 30.5 Anion Gap 8.5 BUN 27 H Creatinine 1.8 H Est GFR (CKD-EPI 2020) 28.13 Glucose 122 H Calcium 9.0 Magnesium 2.3 Total Bilirubin 0.9 AST 35 ALT 21 Alkaline Phosphatase 212 H Troponin I < 50 NT-Pro-B Natriuret Pep 1035 H Total Protein 6.7 Albumin 3.3 L TSH 0.32 L Cancelled Free T4 1.51 H Urine Color Urine Clarity Urine pH Ur Specific [place] Urine Protein Urine Ketones Urine Blood Urine Nitrite Urine Bilirubin Urine Urobilinogen Ur Leukocyte Esterase Urine RBC Urine WBC Ur Epithelial Cells Urine Crystals Urine Bacteria Urine Casts Urine Mucus Urine Other Ur Culture Indicated? Urine Glucose COVID-19 Source Nasopharynx SARS-CoV-2 (PCR) Negative Influenza Type A (PCR) Negative Influenza Type B (PCR) Negative RSV (PCR) Negative 11/28/23 11/28/23 12:10 14:25 WBC RBC Hgb Hct MCV MCH MCHC RDW Plt Count MPV Immature Gran % Neutrophils % Lymphocytes % Monocytes % Eosinophils % Basophils % Nucleated RBC % Absolute Neutrophils Absolute Lymphocytes Absolute Monocytes Absolute Eosinophils Absolute Basophils PT INR APTT D-Dimer VBG pH VBG pCO2 VBG pO2 VBG HCO3 VBG Total CO2 VBG O2 Saturation VBG Base Excess Sodium Potassium Chloride Carbon Dioxide Anion Gap BUN Creatinine Est GFR (CKD-EPI 2020) Glucose Calcium Magnesium Total Bilirubin AST ALT Alkaline Phosphatase Troponin I < 50 NT-Pro-B Natriuret Pep Total Protein Albumin TSH Free T4 Urine Color Yellow Urine Clarity Clear Urine pH 7.[address] [place] 1.015 Urine Protein Negative Urine Ketones Negative Urine Blood Negative Urine Nitrite Negative Urine Bilirubin Negative Urine Urobilinogen 0.2 Ur Leukocyte Esterase Trace H Urine RBC Negative Urine WBC 3-5 Ur Epithelial Cells Rare Urine Crystals Negative Urine Bacteria Few Urine Casts Negative Urine Mucus Negative Urine Other Negative Ur Culture Indicated? No Urine Glucose 500 H COVID-19 Source SARS-CoV-2 (PCR) Influenza Type A (PCR) Influenza Type B (PCR) RSV (PCR) Last Vital Signs Temp 36.4 C 11/28/23 10:25 Pulse 75 11/28/23 10:25 Resp 22 11/28/23 10:51 BP 148/77 H 11/28/23 10:25 Pulse Ox 93 11/28/23 10:25 Time Spent Time spent with Patient: 40-54 minutes Time was spent: preparing to see the patient(eg.review tests), obtaining and/or reviewing separately otained hiistory, ordering medications,tests, procedures, indepentently interpreting results and counseling the patient
[2023-11-28] MEDS: Normal Saline - Diluent 50 ML VIAL IJ (16:44)
[2023-11-28] MEDS: Omnipaque 350 MG/ML 100 ML BTL IJ (16:47)
--- NOTE | 2023-11-28 20:37 | RESPIRATORY ---
RT seen pt. for TERRY diagnosis. Pt. states has HU caled ResMed 11, has Auto-CPAP 11-20 cm H2O without supplement of O2 but did not bring it here today. Pt. has accepted to use hospital's CPAP machine. Pt. also advised that family member will be bring her HU by tomorrow if she is going to stay more nights in hospital. DME is unsure by pt.
[2023-11-28] MEDS: Normal Saline Flush 10 ML SYR IVP (21:00)
[2023-11-28] MEDS: Gabapentin 100 MG CAP PO (21:00)
[2023-11-28] MEDS: Rosuvastatin 20 MG TAB PO (21:00)
[2023-11-28] MEDS: Acetaminophen 325 MG TAB 650 MG PO (21:08)
[2023-11-28] MEDS: Normal Saline 1,000 ML 100 ML IV (23:05)
[2023-11-29 00:05] VITALS: BP 138/69; PULSE 56; RESP 18; O2SAT 93
[2023-11-29] MEDS: Melatonin 3 MG TAB 18 MG PO (00:08)
[2023-11-29 03:05] VITALS: RESP 17
[2023-11-29] MEDS: Acetaminophen 325 MG TAB 650 MG PO (05:40)
[2023-11-29] MEDS: Levothyroxine 150 MCG TAB PO (05:40)
[2023-11-29 06:00] VITALS: O2SAT 93
[2023-11-29 06:54] LABS: Abs Immature Grans 0.02 10^3/uL (0.0-0.06); Absolute Basophil Count 0.04 10^3/uL (0.0-0.2); Absolute Eosinophil Count 0.34 10^3/uL (0.0-0.7); Absolute Lymphocyte Count 1.02 10^3/uL (1.2-3.4); Absolute Monocyte Count 0.71 10^3/uL (0.1-0.8); Absolute Neutrophil Count 2.95 10^3/uL (1.2-6.7); Basophils % 0.8; Eosinophils % 6.7; HCT 35.6 % (36.0-46.0); HGB 11.1 g/dL (11.2-15.7); Immature Grans % 0.4; Lymphocytes % 20.1; MCH 28.2 pg (27.0-33.0); MCHC 31.2 % (32.0-36.0); MCV 90 fL (80-95); MPV 11.2 fL (8.0-11.0); Platelet Count 144 10^3/uL (130-400); RBC 3.94 10^6/uL (3.93-5.22); RDW 14.6 % (11.7-14.6); RDW-SD 47.8 fL; WBC 5.08 10^3/uL (4.4-10.8)
[2023-11-29 07:06] LABS: Anion Gap 8.9 mmol/L (3-11); BUN 29 mg/dL (7-18); CO2 27.1 mmol/L (21.0-32.0); CREATININE 1.8 mg/dL (0.55-1.02); Calcium 8.8 mg/dL (8.5-10.1); Chloride 107 mmol/L (98-107); Estimated GFR 28.13 (mL/min/1.73m2); Glucose 125 mg/dL (74-106); Potassium 3.4 mmol/L (3.5-5.1); Sodium 143 mmol/L (136-145)
[2023-11-29 07:53] VITALS: BP 134/65; PULSE 71; RESP 18; TEMP 35.5; O2SAT 94
[2023-11-29] MEDS: Escitalopram 20 MG TAB PO (07:59)
[2023-11-29] MEDS: Normal Saline Flush 10 ML SYR IVP (07:59)
[2023-11-29] MEDS: Potassium Chloride 20 MEQ TABCR PO ×2 (08:00→11:48)
[2023-11-29] MEDS: Aspirin E.C. 81 MG TABEC PO (08:00)
[2023-11-29] MEDS: Ferrous Sulfate 325 MG TAB PO (08:00)
[2023-11-29] MEDS: Metoprolol CR 25 MG TABCR PO (08:00)
[2023-11-29] MEDS: buPROPion-CR 100 MG TABCR PO (08:18)
[2023-11-29] MEDS: dilTIAZem CD 300 MG CAPCR PO (08:18)
[2023-11-29 08:30] VITALS: O2SAT 95
[2023-11-29] MEDS: Furosemide 20 MG TAB 60 MG PO (09:35)
[2023-11-29] MEDS: Spironolactone 25 MG TAB 12.5 MG PO (09:35)
--- NOTE | 2023-11-29 10:01 | PDOC.CMIN ---
Date of service: 11/29/23 Time of Service: 10:01 Care Management Initial Assmt Initial Assessment REASON FOR HOSPITALIZATION:: respiratory failure and CHF PREVIOUS FUNCTIONAL STATUS/SOCIAL/FAMILY SUPPORTS:: Cherry lives in [facility]. She is with four children, nine grandchildren, and many great grandchildren. 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 She moved from her home in [place] to her friend Rd's home. He helps support her with transportation, meals and companionship and she supports him as well. She is mostly independent with ADLs but does require minimum assistance with ambulation. CURRENT FUNCTIONAL STATUS:: Cherry was sitting up in bed when CM met with her. She was preparing for discharge but had some questions. Cherry asked CM if there was anything she could do to prevent another episode of CHF. She did not seem to have a good understanding of the disease process and contributing factors. Cherry also does not seem to know which medications she is supposed to take and when. CM discussed dietary restrictions, specifically sodium, and identified some of the foods to avoid. CM also discussed reading labels to identify high sodium foods. Cherry admitted that she does not like to cook and has had [place] take out, pizza and store made meals too often. CM also talked about the importance of daily weights and when to report weight gains. Cherry would likely benefit from additional education about CHF. Her discharge instructions from the provider address many of these issues. CM provided Cherry with a new pill case that is divided into morning, noon and night compartments for each day of the week. She stated that she has one at home but hasn't been using it. CM also provided her with a pill splitter since one of her medications needs to he cut in half. ADVANCE DIRECTIVES:: none on file Has patient been provided with info about the portal/API?: Yes Did the patient sign up for the portal?: No CODE STATUS:: Full Code INSURANCE COVERAGE / FINANCIAL ISSUES:: [employer] PRIMARY CARE PHYSICIAN:: Jena Mitchell POTENTIAL DISCHARGE NEEDS:: follow up with community providers and plan of care would likely benefit from additional education about CHF, dietary restrictions and daily weights PATIENT/FAMILY EDUCATION NEEDS:: Review discharge instructions, activity, limitations, diet, medications, follow up plan, discuss Ask Me Three TRANSPORTATION:: via private vehicle with family PLAN:: Anticipate Cherry will be discharged home with no new services when medically stable. She will follow up with her community providers and plan of care and transport with family. CM will follow and continue to assess for discharge planning needs. [facility] All Active Problems (Updated 11/28/23 @ 21:27 by Sugey Kaplan NP) Heart failure with preserved left ventricular function (Acute) CKD (chronic kidney disease) (Chronic) PAF (paroxysmal atrial fibrillation) (Acute) Acute hypoxic respiratory failure (Acute) Decreased renal function (Acute) Hypoxia (Acute) CHF (congestive heart failure) (Chronic) Diabetes type 2, controlled (Chronic) Hypertension (Chronic) Pulmonary embolism (Acute) Loosening of prosthesis of right hip joint (Acute) s/p Revision R Acetabular Component (07/29/23) History of revision of total hip arthroplasty (Acute 07/29/23) Strain of right iliopsoas muscle (Acute) Imbalance (Acute) Displaced fracture of greater trochanter of right femur, subsequent encounter for closed fracture with nonunion (Acute) Strain of right iliopsoas muscle (Acute) Unstable angina (Acute) Dyspnea (Acute) Angina at rest (Acute) Coronary atherosclerosis (Acute) Spinal stenosis (Acute) Left knee DJD (Acute) Depo-Medrol injection: 06/24/2022 Benign paroxysmal positional vertigo (Acute) Sleep apnea (Acute) Mitral regurgitation (Chronic) Diastolic dysfunction (Acute) 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 She has had previous intubations with VL grade 1 view. Also easy mask with 90 mm OPA, and successful LMA placement in the past. Shortness of breath Nasal septal deviation Sensorineural hearing loss of both ears Recurrent UTI (03/15/16) Type 2 diabetes mellitus with diabetic peripheral angiopathy without gangrene Gastro-esophageal reflux disease without esophagitis Hyperlipidemia STEVENS (nonalcoholic steatohepatitis) TERRY (obstructive sleep apnea) PVD (peripheral vascular disease) Dyslipidemia Hypertension Hypothyroidism Diabetes mellitus Syncope SVT (supraventricular tachycardia) F/U with Dr. Sweet Lymphoma Breast Cancer Surgical History History of heart assist device WATCHMEN IN SITU History of lumpectomy of right breast Hx of tonsillectomy History of total left hip replacement History of esophagogastroduodenoscopy (EGD) (~07/2021) History of colonoscopy (~07/2021) Rotator Cuff Repair Partial mastectomy with sentinal node Pt. states this is incorrect, she had a lumpectomy Nail removal (toe) Excision of neck mass Social History Smoking/Tobacco Use Status: Never Smoking risk assessment performed?: Yes Alcohol Intake: never Drug use: Never Substance use type: does not use Housing: house Do you feel safe at home: Yes Do you feel safe in your relationship?: Yes Female Reproductive History Menstrual Menopause type: natural SDOH(Care Management) Screening Will the Patient Participate in the Screening?: Yes Do you worry about having a steady place to live?: yes Problems where you live: Carbon monoxide detectors missing or not working In the past 12 months, have you had to go without electric, gas, oil or water in your home?: no Have you or anyone in your house had to go without enough food to eat?: no Has lack of transportation kept you from medical appointments or from doing things needed for daily living?: no Has anyone in your support network made you feel unsafe for any reason?: no Social Determinants of Health Comments(SDOH Details): need walk in shower Health Related Social Needs Health related social needs: inadequate housing(Z59.1) and housing instability, housed, with risk of homelessness(Z59.811)
--- NOTE | 2023-11-29 10:56 | W.PM.DS.N ---
Date of service: 11/29/23 Time of Service: 10:56 DS: Diagnosis Discharge Diagnosis (1) Acute hypoxic respiratory failure: Status: Acute (2) Heart failure with preserved left ventricular function: Status: Acute (3) Diabetes type 2, controlled: Status: Chronic (4) CKD (chronic kidney disease): Status: Chronic (5) PAF (paroxysmal atrial fibrillation): Status: Acute Discharge Plan Disposition Patient Disposition: Home Condition: Improving Discharge Details Reason For Visit: hypoxic respiratory failure Admit Date/Time: 11/28/23 16:06 Admit Provider: Nico Chavez Attending Provider: Nico Chavez Primary Care Provider: Jena Mitchell [facility] Hospital Course: This is an 78-year-old female patient with complex past medical history including type 2 diabetes mellitus heart failure with preserved ejection fraction chronic kidney disease paroxysmal atrial fibrillation status post Watchman procedure, type 2 diabetes, history of hip replacement with postoperative pulmonary embolism chronic kidney disease who presented to the emergency department with worsening shortness of breath and hypoxic respiratory failure requiring oxygen at 2 L nasal cannula to maintain sats in the low 90s. It was first thought her symptoms were due to heart failure and she was given Lasix with good diuresis diuresing approximately 1 L but she still had oxygen requirements. apparently she never took her apixaban that was prescribed when she was diagnosed with a pulmonary embolism in August. Her workup in the emergency department did show an elevated D-dimer at 2800 so definitely pulmonary embolism became high on the differential so we did obtain a CT for PE protocol which was negative. She was given IV diuretics with improvement in her symptoms. Overnight she rested comfortably with her symptoms improving. Labs checked in the morning showed stable kidney function. She is hemodynamically stable has been weaned off oxygen and feels closer to her baseline and wanting discharge to home. There is some medication compliance questions as she seems to be a poor historian about her medications and seems to have some difficulties obtaining some of the meds from the pharmacy. We did discuss home health services with her and she stated that in the past they did try setting her up with bubble packs but this became too financially burdensome for her so she stopped doing that. I do recommend that she calls her primary care provider first thing Friday morning to complete a med reconciliation and to set up an appointment to go over all of her medications and possibly using a pillbox system. She was advised to continue furosemide twice daily and spironolactone daily. I have removed Yuliana as she is no longer taking and does not have a pulmonary embolism. Home Meds and New Rx's Prescriptions: Continued gabapentin 100 mg capsule 100 mg PO QHS Hold Instructions: has not getting this medication from the pharmacy ferrous sulfate [Feosol] 325 mg (65 mg iron) tablet 325 mg PO Q OTHER DAY Jardiance 10 mg tablet 10 mg PO DAILY Hold Instructions: Resume on 08/28/23. As per PCP Patient Comments: will stop once she starts Invokana metoprolol succinate 25 mg tablet extended release 24 hr 25 mg PO DAILY diltiazem HCl [Cartia XT] 300 MG capsule,extended release 24hr 300 mg PO DAILY escitalopram oxalate 20 MG tablet 20 mg PO DAILY fluticasone propionate [Allergy Relief (fluticasone)] 50 mcg/actuation spray,suspension 2 spray intranasal DAILY PRN Rx Instructions: administer into each nostril aspirin [Adult Aspirin Regimen] 81 mg tablet,delayed release (DR/EC) 81 mg PO DAILY Patient Comments: pt states not taking meclizine 12.5 mg tablet See Rx Instructions PO DAILY PRN Rx Instructions: take 1-2 tablets every 8 hours as needed for nausea. rosuvastatin 20 mg tablet 20 mg PO DAILY Patient Comments: TAKE ONE TABLET BY MOUTH EVERY DAY bupropion HCl 100 mg tablet sustained-release 12 hr 100 mg PO DAILY levothyroxine 150 mcg tablet 150 mcg PO DAILY Patient Comments: TAKE ONE TABLET BY MOUTH EVERY MORNING irbesartan 75 mg tablet 75 mg PO QPM nitroglycerin 0.4 mg tablet, sublingual 0.4 mg sublingual Q5M PRN Patient Comments: PLACE ONE TABLET UNDER THE TONGUE EVERY 5 MINUTES FOR UP TO 3 DOSES NEEDED FOR CHEST PAIN. IF CHEST PAIN STILL PERSISTS CONTACT 911 spironolactone 25 mg tablet 12.5 mg PO DAILY Patient Comments: TAKE ONE-HALF TABLET BY MOUTH EVERY DAY melatonin 10 mg tablet 20 mg PO HS Patient Comments: Take 2 tablet by mouth at bedtime Invokana 100 mg tablet 100 mg PO DAILY Patient Comments: Not started, waiting for insurance approval. Will be replacing Jardiance acetaminophen 325 mg Tablet 325 - 650 mg PO Q6H Qty: 60 0RF potassium chloride [Klor-Con M20] 20 mEq Tablet,Er Particles/Crystals 20 meq PO DAILY Qty: 10 0RF furosemide 20 mg Tablet 60 mg PO BID@0830,1600 Qty: 180 0RF acetaminophen 500 mg tablet 1,000 mg PO Q8H PRN Qty: 90 0RF Hold Instructions: Resume on 08/21/23. Rx Instructions: Take two tablets up to every 8 hours as needed for pain Discontinued Eliquis 5 mg Tablet 10 mg PO BID Qty: 70 0RF Rx Instructions: Take 10 mg (2 pills) every 12 hours until 08/19/2023 inclusively On 08/20/2023 start taking 5mg every 12 hours, your PCP will follow-up with you for refills Discharge Instructions Instructions: Heart Failure (DC), Low-Sodium Diet (DC) Additional Instructions: Please contact your primary care provider's office first thing Friday to complete a med reconciliation as it is unclear which medications you should be and are currently taking. Please continue taking your diuretics including furosemide twice daily and spironolactone daily as previously directed Monitor daily weights to bring to your follow-up appointment Referrals: Jena Mitchell MD [Primary Care Provider] - Activity:: Activity as Tolerated Equipment/Supplies:: No Equipment Needed Diet:: Low Sodium Discharge Orders Discharge Orders: Discharge Order (Routine); Ordered 11/29/23 Ordered By: Sugey Kaplan DS: Summary Time Spent with Patient providing and/or coordinating discharge services: Greater than 30 minutes Status at Discharge Functional status at discharge: independent ambulation Overall status at discharge: patient is progressing back to baseline Mental Status: mental status grossly normal Speech and Movement: speech and movement normal Mood: congruent mood Affect: normal affect Quality:SDOH Health Related Social Needs: Health related social needs inadequate housing, risk of homeless Exam Const General: cooperative, healthy appearing, comfortable and well groomed Nutritional Appearance: obese Orientation: alert, awake and oriented x3 HENMT Head: normal to inspection, normocephalic and atraumatic Mouth: oral mucosae normal Resp Effort & Inspection: normal respiratory effort Auscultation: clear to auscultation bilaterally Cardio Rate: regular rate Rhythm: regular rhythm Heart Sounds: murmur GI Inspection: normal to inspection Palpation: soft and nontender Skin General skin exam: no rashes or lesions noted Extrem General: normal to inspection and full ROM Psych Mental Status: mental status grossly normal Speech and Movement: speech and movement normal Mood: congruent mood Affect: normal affect DS: Data Vitals/I&O Vitals and I&O: Vital Signs Temperature 35.5 C L 11/29/23 07:53 Temperature Source Tympanic 11/29/23 07:53 Pulse 71 11/29/23 07:53 Pulse Rhythm Irregular 11/29/23 09:51 Respiratory Rate 18 11/29/23 07:53 Respiratory Effort Normal 11/29/23 09:51 Respiratory Depth Normal 11/29/23 09:51 Respiratory Pattern Normal 11/29/23 09:51 Blood Pressure 134/65 11/29/23 07:53 Blood Pressure Position Sitting 11/28/23 10:25 Pulse Oximetry 94 11/29/23 07:53 Oxygen Delivery Method Nasal Cannula 11/29/23 07:53 Oxygen Flow Rate 1 11/29/23 07:53 Fraction of Inspired Oxygen (FIO2) 11/29/23 03:05 Pain Level 8 11/29/23 07:53 Intake & Output 11/28/23 11/28/23 11/29/23 11:59 23:59 11:59 Intake Total 1350 / 1350 Output Total 1700 / 1700 Balance -350 / -350 Weight 97.976 kg 100.062 kg Intake: IV 1000 / 1000 Oral 350 / 350 Output: Urine 1700 / 1700 Other: Urine Color Yellow Pale Urine Appearance Clear Clear Comment hong catheter in place. Stool Size Large Stool Characteristics Formed Data Completed and Pending Labs on day of discharge: Labs from last 24 hours 11/29/23 11/28/23 11/28/23 06:10 14:25 12:10 WBC 5.08 RBC 3.94 Hgb 11.1 L Hct 35.6 L MCV 90 MCH 28.2 MCHC 31.2 L RDW 14.6 Plt Count 144 MPV 11.2 H Immature Gran % 0.4 Neutrophils % 58.0 Lymphocytes % 20.1 Monocytes % 14.0 Eosinophils % 6.7 Basophils % 0.8 Nucleated RBC % 0.0 Absolute Neutrophils 2.95 Absolute Lymphocytes 1.02 L Absolute Monocytes 0.71 Absolute Eosinophils 0.34 Absolute Basophils 0.04 PT INR APTT D-Dimer VBG pH VBG pCO2 VBG pO2 VBG HCO3 VBG Total CO2 VBG O2 Saturation VBG Base Excess Sodium 143 Potassium 3.4 L Chloride 107 Carbon Dioxide 27.1 Anion Gap 8.9 BUN 29 H Creatinine 1.8 H Est GFR (CKD-EPI 2020) 28.13 Glucose 125 H Calcium 8.8 Magnesium Total Bilirubin AST ALT Alkaline Phosphatase Troponin I < 50 NT-Pro-B Natriuret Pep Total Protein Albumin TSH Free T4 Urine Color Yellow Urine Clarity Clear Urine pH 7.0 Ur Specific [place] 1.015 Urine Protein Negative Urine Ketones Negative Urine Blood Negative Urine Nitrite Negative Urine Bilirubin Negative Urine Urobilinogen 0.2 Ur Leukocyte Esterase Trace H Urine RBC Negative Urine WBC 3-5 Ur Epithelial Cells Rare Urine Crystals Negative Urine Bacteria Few Urine Casts Negative Urine Mucus Negative Urine Other Negative Ur Culture Indicated? No Urine Glucose 500 H COVID-19 Source SARS-CoV-2 (PCR) Influenza Type A (PCR) Influenza Type B (PCR) RSV (PCR) 11/28/23 11/28/23 11/28/23 11:50 11:50 11:31 WBC 5.88 RBC 4.04 Hgb 11.3 Hct 36.6 MCV 91 MCH 28.0 MCHC 30.9 L RDW 14.6 Plt Count 166 MPV 11.2 H Immature Gran % 0.3 Neutrophils % 59.1 Lymphocytes % 19.2 Monocytes % 12.8 Eosinophils % 7.7 Basophils % 0.9 Nucleated RBC % 0.0 Absolute Neutrophils 3.48 Absolute Lymphocytes 1.13 L Absolute Monocytes 0.75 Absolute Eosinophils 0.45 Absolute Basophils 0.05 PT 11.8 H INR 1.2 H APTT 23.6 D-Dimer 2730 H VBG pH 7.39 VBG pCO2 51 VBG pO2 34 VBG HCO3 31 H VBG Total CO2 29 VBG O2 Saturation 63 VBG Base Excess 6 H Sodium 145 Potassium 3.5 Chloride 106 Carbon Dioxide 30.5 Anion Gap 8.5 BUN 27 H Creatinine 1.8 H Est GFR (CKD-EPI 2020) 28.13 Glucose 122 H Calcium 9.0 Magnesium 2.3 Total Bilirubin 0.9 AST 35 ALT 21 Alkaline Phosphatase 212 H Troponin I < 50 NT-Pro-B Natriuret Pep 1035 H Total Protein 6.7 Albumin 3.3 L TSH Cancelled 0.32 L Free T4 1.51 H Urine Color Urine Clarity Urine pH Ur Specific [place] Urine Protein Urine Ketones Urine Blood Urine Nitrite Urine Bilirubin Urine Urobilinogen Ur Leukocyte Esterase Urine RBC Urine WBC Ur Epithelial Cells Urine Crystals Urine Bacteria Urine Casts Urine Mucus Urine Other Ur Culture Indicated? Urine Glucose COVID-19 Source Nasopharynx SARS-CoV-2 (PCR) Negative Influenza Type A (PCR) Negative Influenza Type B (PCR) Negative RSV (PCR) Negative 11/28/23 18:00 Urine - Voided Urine Culture - Pending Preliminary micro results at discharge 11/28/23 18:00 Urine Culture - Pending Urine - Voided PFSH All Active Problems (Updated 11/28/23 @ 21:27 by Sugey Kaplan NP) Heart failure with preserved left ventricular function (Acute) CKD (chronic kidney disease) (Chronic) PAF (paroxysmal atrial fibrillation) (Acute) Acute hypoxic respiratory failure (Acute) Decreased renal function (Acute) Hypoxia (Acute) CHF (congestive heart failure) (Chronic) Diabetes type 2, controlled (Chronic) Hypertension (Chronic) Pulmonary embolism (Acute) Loosening of prosthesis of right hip joint (Acute) s/p Revision R Acetabular Component (07/29/23) History of revision of total hip arthroplasty (Acute 07/29/23) Strain of right iliopsoas muscle (Acute) Imbalance (Acute) Displaced fracture of greater trochanter of right femur, subsequent encounter for closed fracture with nonunion (Acute) Strain of right iliopsoas muscle (Acute) Unstable angina (Acute) Dyspnea (Acute) Angina at rest (Acute) Coronary atherosclerosis (Acute) Spinal stenosis (Acute) Left knee DJD (Acute) Depo-Medrol injection: 06/24/2022 Benign paroxysmal positional vertigo (Acute) Sleep apnea (Acute) Mitral regurgitation (Chronic) Diastolic dysfunction (Acute) 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 She has had previous intubations with VL grade 1 view. Also easy mask with 90 mm OPA, and successful LMA placement in the past. Shortness of breath Nasal septal deviation Sensorineural hearing loss of both ears Recurrent UTI (03/15/16) Type 2 diabetes mellitus with diabetic peripheral angiopathy without gangrene Gastro-esophageal reflux disease without esophagitis Hyperlipidemia STEVENS (nonalcoholic steatohepatitis) TERRY (obstructive sleep apnea) PVD (peripheral vascular disease) Dyslipidemia Hypertension Hypothyroidism Diabetes mellitus Syncope SVT (supraventricular tachycardia) F/U with Dr. Sweet Lymphoma Breast Cancer Surgical History History of heart assist device WATCHMEN IN [facility]IT[facility] History of lumpectomy of right breast Hx of tonsillectomy History of total left hip replacement History of esophagogastroduodenoscopy (EGD) (~07/2021) History of colonoscopy (~07/2021) Rotator Cuff Repair Partial mastectomy with sentinal node Pt. states this is incorrect, she had a lumpectomy Nail removal (toe) Excision of neck mass Social History Smoking/Tobacco Use Status: Never Smoking risk assessment performed?: Yes Alcohol Intake: never Drug use: Never Substance use type: does not use Housing: house Do you feel safe at home: Yes Do you feel safe in your relationship?: Yes Female Reproductive History Menstrual Menopause type: natural Time Spent with Patient Time Spent with Patient: 45-69 minutes Time was spent: preparing to see the patient(eg.review tests), obtaining and/or reviewing separately otained hiistory, ordering medications,tests, procedures, indepentently interpreting results, counseling the patient and care coordination
== END 2023-11-29 13:21 | disposition home or self-care (01) | DRG 291 ==
LOC: ER 16:43 → MS 17:05
PROVIDERS: Nurse Practitioner Acute Care; Admitting Provider Family Medicine; Emergency Provider Emergency Medicine Emergency Medical Services; PCP Family Medicine; Visit Provider Family Medicine
DX: I50.33 Acute on chronic diastolic (congestive) heart failure (principal); J96.01 Acute respiratory failure with hypoxia; I47.19 Other supraventricular tachycardia; E11.22 Type 2 diabetes mellitus with diabetic chronic kidney disease; N18.32 Chronic kidney disease, stage 3b; I48.0 Paroxysmal atrial fibrillation; Z95.818 Presence of other cardiac implants and grafts; Z86.711 Personal history of pulmonary embolism; K74.60 Unspecified cirrhosis of liver; R79.1 Abnormal coagulation profile; I13.0 Hypertensive heart and chronic kidney disease with heart failure and stage 1 through stage 4 chronic kidney disease, or unspecified chronic kidney disease; I25.110 Atherosclerotic heart disease of native coronary artery with unstable angina pectoris; I08.0 Rheumatic disorders of both mitral and aortic valves; Z96.641 Presence of right artificial hip joint; Z95.828 Presence of other vascular implants and grafts; I73.9 Peripheral vascular disease, unspecified; K21.9 Gastro-esophageal reflux disease without esophagitis; I70.1 Atherosclerosis of renal artery; E03.9 Hypothyroidism, unspecified; G47.33 Obstructive sleep apnea (adult) (pediatric); H90.3 Sensorineural hearing loss, bilateral
CPT/HCPCS: 00123; 36415; 51702; 71275; 80048; 80053; 82805; 87637; 93005; 96360; 96361; 96374; 99291; 71045; 81003; 81015; 83735; 83880; 84439; 84443; 84484; 85025; 85379; 85610; 85730; 87086; 93010; 94660; 99222; 99239; G0378; J1940; J3490

== ENCOUNTER 2023-12-15 17:11 | Outpatient (REF) | payer OTHER, SELFPAY ==
[2023-12-15 18:56] LABS: HCT 37.2 % (36.0-46.0); HGB 11.7 g/dL (11.2-15.7); MCH 28.2 pg (27.0-33.0); MCHC 31.5 % (32.0-36.0); MCV 90 fL (80-95); MPV 11.5 fL (8.0-11.0); Platelet Count 152 10^3/uL (130-400); RBC 4.15 10^6/uL (3.93-5.22); RDW 15.2 % (11.7-14.6); RDW-SD 49.7 fL; WBC 5.15 10^3/uL (4.4-10.8)
[2023-12-15 19:15] LABS: Anion Gap 10.1 mmol/L (3-11); BUN 27 mg/dL (7-18); CO2 29.9 mmol/L (21.0-32.0); CREATININE 1.7 mg/dL (0.55-1.02); Chloride 106 mmol/L (98-107); Estimated GFR 30.13 (mL/min/1.73m2); Glucose 130 mg/dL (74-106); NT-proBNP 1079 pg/mL (<300); Potassium 3.6 mmol/L (3.5-5.1); Sodium 146 mmol/L (136-145)
[2023-12-15 19:17] LABS: Hemoglobin A1C 6.7 % (<5.7)
== END 2023-12-15 17:12 | disposition home or self-care (01) ==
LOC: NCHCN 17:11
PROVIDERS: PCP Family Medicine; Visit Provider Family Medicine
DX: E11.9 Type 2 diabetes mellitus without complications (principal); I50.30 Unspecified diastolic (congestive) heart failure
CPT/HCPCS: 80048; 85027; 83036; 83880

== ENCOUNTER 2023-12-22 10:20 | Outpatient (RCR) | payer OTHER, SELFPAY ==
--- NOTE | 2023-11-28 10:26 | NUR.NOTE ---
Nursing Note: Patient presented for CR today and noted she was very SOB. Patient noted to be speaking in full sentences and able to converse with CR staff. O2 noted to be 91-92% RA. Placed on 2L O2. Patient denied chest pain, fevers, or any other symptoms. Very fine crackles noted in bilat bases and bilat middle lobes. Notes she has had increased SOB in the last few days but her PCP was away and she did not want to see another provider. Patient agreeable to be evaluated in ED and report was give to Abigal by CR RN. Patient brought down ED via wheelchair.
== END 2023-12-23 23:59 | disposition home or self-care (01) ==
LOC: CR 10:20
PROVIDERS: PCP Family Medicine; Visit Provider Internal Medicine Cardiovascular Disease
DX: I50.33 Acute on chronic diastolic (congestive) heart failure (principal); Z51.89 Encounter for other specified aftercare
CPT/HCPCS: S9472

== ENCOUNTER 2023-12-31 14:33 | Outpatient (REF) | payer OTHER, SELFPAY ==
[2023-12-31 19:20] LABS: Anion Gap 10.9 mmol/L (3-11); BUN 17 mg/dL (7-18); CO2 28.1 mmol/L (21.0-32.0); CREATININE 1.7 mg/dL (0.55-1.02); Calcium 8.7 mg/dL (8.5-10.1); Chloride 106 mmol/L (98-107); Estimated GFR 30.13 (mL/min/1.73m2); Glucose 161 mg/dL (74-106); NT-proBNP 1306 pg/mL (<300); Potassium 3.5 mmol/L (3.5-5.1); Sodium 145 mmol/L (136-145)
== END 2023-12-31 14:34 | disposition home or self-care (01) ==
LOC: NCHCN 14:33
PROVIDERS: PCP Family Medicine; Visit Provider Family Medicine
DX: R06.09 Other forms of dyspnea (principal)
CPT/HCPCS: 80048; 83880

== ENCOUNTER → 2024-01-23 00:17 | Outpatient (CLI) | payer OTHER, SELFPAY ==
--- NOTE | 2024-01-23 13:00 | DI.US_ITS ---
APPROVED REPORT EXAM: Comprehensive 2D, Doppler, and color-flow Echocardiogram Patient Location: Out-Patient Wire Coater: Yao Junior RDCS (AE) Indications: Increasing CHENG, s/p TAVR Other Information Technically limited study due to body habitus. Conclusion Left ventricle is borderline dilated. Wall thickness is normal. Ejection fraction is 60 to 65%. Wa ll motion is normal Normal right ventricular size and function Both atria are moderately dilated There is a bioprosthetic aortic valve replacement. Mean gradient is 13 mmHg. There is no aortic reg urgitation Mildly thickened mitral leaflets. Moderate central mitral regurgitation Mild to moderate tricuspid regurgitation. Estimated right ventricular systolic pressure is 36 mmHg Ascending aorta measures 3.42 cm Wall motion Left Ventricle Left ventricle is mildly dilated. The left ventricular systolic function is normal. The left ventricu lar ejection fraction is within the normal range. There is normal left ventricular wall thickness. Th ere is normal LV segmental wall motion. There is no ventricular septal defect visualized. LVEF is 60- 65%. Right Ventricle The right ventricle is normal size. The right ventricular systolic function is normal. Atria Left atrium is moderately dilated. Right atrium is moderately dilated. The interatrial septum is inta ct with no evidence for an atrial septal defect. Aortic Valve TAVR is present. Mean gradient is 13 mmHg No aortic regurgitation is present. Mitral Valve Mitral valve leaflets are mildly thickened. Mild mitral annular calcification. No evidence of mitral valve stenosis. Moderate mitral regurgitation. Tricuspid Valve The tricuspid valve is normal in structure. There is no tricuspid valve stenosis. Mild to moderate tr icuspid regurgitation. The RVSP is 36.3 mmHg. Pulmonic Valve The pulmonary valve is normal in structure. There is no pulmonic valvular stenosis. Trace pulmonic re gurgitation. Great Vessels The aortic root is not well visualized but is probably normal size. The ascending aorta is mildly dil ated. Aortic arch is normal in caliber. IVC is normal in size and collapses >50% with inspiration. Pericardium There is no pericardial effusion. 2D Dimensions IVSD d PLAX 0.78 cm F: 0.6-1.0 Ao Asc Diam d 3.42 cm F: 2.3 - 3.1 LVPW d PLAX 0.75 cm F: 0.6 - 1.0 LVID d PLAX 5.64 cm F: 3.8 - 5.2 LVDs 3.81 cm F: 2.2 - 3.5 LV EF Teichholz 60.1 % FS 32.42 % LV EDV (Teich) 156.2 mL LV ESV (Teich) 62.4 mL Stroke Vol Index (Teich) 46.90 M-Mode TAPSE 2.06 cm (M/F) >1.7 Auto EF LV EDV A4C 95.3 mL LV EDV A2C 111.9 mL LV EDV BP 103.6 mL LV ESV A4C 34.1 mL LV ESV A2C 42.3 mL LV ESV BP 38.5 mL LVEF(%) A4C 64.2 % LVEF(%) A2C 62.2 % LVEF(%) BP 62.9 % LV SV A4C 61.2 ml LV SV A2C 69.6 ml LV SV BP 65.1 ml LV CO A4C 3.6 L/min LV CO A2C 3.6 L/min LV CO BP 3.6 L/min HR A4C 59.41 BPM HR A2C 51.65 BPM LV EDV Index (BP) LA Volume LA Length A4C 7.5 cm LA Length A2C 5.9 cm LA Area A4C s 22.16 cm2 LA Area A2C s 19.87 cm2 LA Vol A4C A-L 55.38 mL LA Vol A2C A-L 56.78 mL LA Vol Biplane A-L 63.3 mL LA Vol/BSA A4C A-L LA Vol/BSA A2C A-L LA Vol/BSA BP A-L 31.7 mL/m2 LA Vol A4C MOD 54.8 mL LA Vol A2C MOD 56.2 mL LA Vol BP MOD 61.9 mL RA Volume RA Area A4C 21.8 cm2 RA ESV A4C (A-L) 76.2mL RA Vol/BSA A4C A-L RA Length A4C 5.3 cm RA ESV A4C (MOD) 68.3mL LV Diastology MV E' medial 0.092 (>0.07 m/s) MV E Vmax 1.87 (0.4-1.3 m/s) MV E' lateral 0.079 (>0.1 m/s) Aortic Valve AoV Vmax 2.40 m/s LVOT Vmax 1.35 m/s AoV Peak Grad 23.1 mmHg LVOT Peak Grad 7.3 mmHg AoV VTI 0.546 m LVOT VTI 0.390 m AoV Mean Onesimo. 1.74 m/s LVOT Mean Grad 4.9 mmHg AoV Mean Grad 13.3 mmHg Velocity Ratio 0.56 Mitral Valve MV Vmax TIPS 2.13 m/s MR Vmax 5.35 m/s MV Mean Grad 4.5 (<2mmHg) MR VTI 1.654 m MV VTI 0.479 m MR Peak Grad 114.5 mmHg MR Mean Grad 72.0 mmHg MR PISA Radius 0.65 cm MR Aliasing Velocity 0.36 m/s Pulmonary Valve PV Vmax 0.93 (0.5-1.5 m/s) RVOT Vmax 0.63 m/s PV Peak Grad 3.5 mmHg RVOT Peak Gr. 1.6 mmHg PV Mean Onesimo 0.60 m/s RVOT VTI 0.146 m PV Mean Grad 1.7 mmHg RVOT Mean Gr. 0.9 mmHg Tricuspid Valve RA Pressure 3.00 mmHg TR Vmax 2.88 m/s TR Peak Grad 33.2 mmHg RVSP (TR) 36.3 mmHg
== END ==
PROVIDERS: PCP Family Medicine; Visit Provider Family Medicine
DX: R06.09 Other forms of dyspnea (principal)
CPT/HCPCS: 93306

== ENCOUNTER 2024-01-23 10:41 | Outpatient (RCR) | payer OTHER, SELFPAY | END 2024-01-23 23:59 | disposition home or self-care (01) | LOC: CR 10:41 | PROVIDERS: PCP Family Medicine; Visit Provider Internal Medicine Cardiovascular Disease | DX: I25.10 Atherosclerotic heart disease of native coronary artery without angina pectoris (principal); I50.33 Acute on chronic diastolic (congestive) heart failure; Z51.89 Encounter for other specified aftercare | CPT/HCPCS: S9472 ==

== ENCOUNTER 2024-02-04 09:00 | Outpatient (RCR) | payer OTHER, SELFPAY | END 2024-02-22 23:59 | disposition home or self-care (01) | LOC: CR 09:00 | PROVIDERS: PCP Family Medicine; Visit Provider Internal Medicine Cardiovascular Disease | DX: I35.0 Nonrheumatic aortic (valve) stenosis (principal) | CPT/HCPCS: S9472 ==

== ENCOUNTER → 2024-02-12 00:29 | Outpatient (CLI) | payer OTHER, SELFPAY ==
--- NOTE | 2024-02-12 | DI.MAMMO_ITS ---
Exam(s) MG MAMMO SCREENING 60 MIN DUR EXAM: MG MAMMO SCREENING 60 MIN DUR CLINICAL HISTORY: Z12.39 screening mammogram, HX personal Breast CA TECHNIQUE: Bilateral full field digital CC and MLO mammographic images were obtained with 3D tomosyn thesis and utilizing computer aided detection (CAD). COMPARISON: Available for comparison. FINDINGS: Masses/Architectural Distortion: The patient is status post right lumpectomy. There are no suspiciou s mass is seen. No new areas of architectural distortion are seen. Microcalcifications: No suspicious pleomorphic-type are seen. There again seen benign type calcificat ions in both breasts. Skin Thickening/Nipple Retraction: None. IMPRESSION: 1. No significant interval change with no specific features of malignancy noted. 2. Unless there is more urgent need, screening mammography is recommended, as per [employer] guidelines. 3. Findings were discussed with the patient on the date of the examination. BI-RADS Category 2 - Benign Findings Breast Density - Category B - Scattered areas of fibroglandular density Breast density category C or D implies that the patient has dense breast tissue. Dense breast tissue is very common and is not abnormal but dense breast tissue can make it harder to find cancer on a ma mmogram. Also, dense breast tissue may increase their breast cancer risk. This information about the result of the mammogram report was provided to the patient to raise their awareness. Use this report when you speak with the patient about their risks for breast cancer, which includes their family hist ory. At that time, you may recommend for more screening tests (Ultrasound or MRI) as they might be us eful based on their risk. A negative radiographic report should not delay biopsy if a dominant or clinically suspicious mass is present. Up to ten percent of cancers are not identified on mammography. A negative report may reinforce clinical impression. Adenosis and dense breasts may obscure an underlying neoplasm. False positive reports average 6 to 10%. Patient will receive a letter notifying them of these results.
== END ==
PROVIDERS: PCP Family Medicine; Visit Provider Family Medicine
DX: Z12.31 Encounter for screening mammogram for malignant neoplasm of breast (principal)
CPT/HCPCS: 77063; 77067

== ENCOUNTER 2024-03-22 11:36 | Outpatient (REF) | payer OTHER, SELFPAY ==
[2024-03-22 16:12] LABS: HCT 42.3 % (36.0-46.0); HGB 13.6 g/dL (11.2-15.7); MCH 29.9 pg (27.0-33.0); MCHC 32.2 % (32.0-36.0); MCV 93 fL (80-95); MPV 10.9 fL (8.0-11.0); Platelet Count 146 10^3/uL (130-400); RBC 4.55 10^6/uL (3.93-5.22); RDW 14.6 % (11.7-14.6); RDW-SD 49.4 fL; WBC 5.26 10^3/uL (4.4-10.8)
[2024-03-22 16:36] LABS: Hemoglobin A1C 7.2 % (<5.7)
[2024-03-22 16:37] LABS: Anion Gap 7.7 mmol/L (3-11); BUN 23 mg/dL (7-18); CO2 29.3 mmol/L (21.0-32.0); CREATININE 1.7 mg/dL (0.55-1.02); Calcium 9.5 mg/dL (8.5-10.1); Chloride 106 mmol/L (98-107); Estimated GFR 29.94 (mL/min/1.73m2); Ferritin 78 ng/mL (8-252); Glucose 147 mg/dL (74-106); Potassium 3.9 mmol/L (3.5-5.1); Sodium 143 mmol/L (136-145)
== END 2024-03-22 11:37 | disposition home or self-care (01) ==
LOC: NCHCN 11:36
PROVIDERS: PCP Family Medicine; Visit Provider Family Medicine
DX: E11.9 Type 2 diabetes mellitus without complications (principal); I10 Essential (primary) hypertension; K27.9 Peptic ulcer, site unspecified, unspecified as acute or chronic, without hemorrhage or perforation
CPT/HCPCS: 80048; 85027; 82728; 83036

== ENCOUNTER 2024-04-28 02:37 | Outpatient (CLI) | payer OTHER, SELFPAY ==
[2024-04-28 12:52] LABS: Abs Immature Grans 0.02 10^3/uL (0.0-0.06); Absolute Basophil Count 0.03 10^3/uL (0.0-0.2); Absolute Eosinophil Count 0.21 10^3/uL (0.0-0.7); Absolute Lymphocyte Count 0.88 10^3/uL (1.2-3.4); Absolute Monocyte Count 0.61 10^3/uL (0.1-0.8); Absolute Neutrophil Count 3.59 10^3/uL (1.2-6.7); Basophils % 0.6 %; Eosinophils % 3.9 %; HCT 42.6 % (36.0-46.0); HGB 14.1 g/dL (11.2-15.7); Immature Grans % 0.4 %; Lymphocytes % 16.5 %; MCH 30.5 pg (27.0-33.0); MCHC 33.1 % (32.0-36.0); MCV 92 fL (80-95); MPV 10.2 fL (8.0-11.0); Monocytes % 11.4 %; Neutrophils % 67.2 %; Platelet Count 129 10^3/uL (130-400); RBC 4.62 10^6/uL (3.93-5.22); RDW 13.9 % (11.7-14.6); RDW-SD 47.3 fL; WBC 5.34 10^3/uL (4.4-10.8)
[2024-04-28 13:10] LABS: ALT 24 U/L (14-59); AST 43 U/L (15-37); Albumin 3.3 g/dL (3.4-5.0); Alkaline Phosphatase 205 U/L (46-116); Anion Gap 8.5 mmol/L (3-11); BUN 22 mg/dL (7-18); Bilirubin, Total 0.74 mg/dL (0.2-1.0); CO2 29.5 mmol/L (21.0-32.0); CREATININE 1.8 mg/dL (0.55-1.02); Calcium 9.8 mg/dL (8.5-10.1); Chloride 105 mmol/L (98-107); Estimated GFR 27.96 (mL/min/1.73m2); Glucose 147 mg/dL (74-106); LDH 224 U/L (81-234); Potassium 3.6 mmol/L (3.5-5.1); Sodium 143 mmol/L (136-145); Total Protein 6.8 g/dL (6.4-8.2)
[2024-04-29 09:08] LABS: IgA 145 mg/dL (85-499); IgG 1010 mg/dL (610-1616); IgM 114 mg/dL (35-242)
== END 2024-04-28 02:38 | disposition home or self-care (01) ==
PROVIDERS: PCP Family Medicine; Referring Provider Internal Medicine Hematology & Oncology; Visit Provider Internal Medicine Hematology & Oncology
DX: C85.80 Other specified types of non-Hodgkin lymphoma, unspecified site (principal)
CPT/HCPCS: 36415; 80053; 82784; 83615; 85025

== ENCOUNTER 2024-04-30 18:15 | Outpatient (REF) | payer OTHER, SELFPAY ==
[2024-04-30 19:58] LABS: TSH (W/Ref FT4) 1.09 uIU/mL (0.36-3.74); Vitamin D 25 Total 35.7 ng/mL (30-100)
[2024-04-30 20:18] LABS: NT-proBNP 1765 pg/mL (<300); PHOSPHORUS 3.7 mg/dL (2.6-4.7)
[2024-05-03 08:47] LABS: Parathyroid Hormone,Intact 43 pg/mL (19-88)
== END 2024-04-30 18:16 | disposition home or self-care (01) ==
LOC: NCHCN 18:15
PROVIDERS: PCP Family Medicine; Visit Provider Family Medicine
DX: E03.9 Hypothyroidism, unspecified (principal); I50.30 Unspecified diastolic (congestive) heart failure
CPT/HCPCS: 82306; 83880; 83970; 84100; 84443

== ENCOUNTER 2024-05-24 02:04 | Outpatient (CLI) | payer OTHER, SELFPAY ==
--- NOTE | 2024-05-24 | DI.US_ITS ---
Exam(s) US ABDOMEN LIMITED EXAM: US ABDOMEN LIMITED CLINICAL HISTORY: CIRRHOSIS OF LIVER, K74.60 TECHNIQUE: Ultrasound abdomen performed using standard protocol. COMPARISON: US US ABDOMEN LIMITED from 11/25/2022 FINDINGS: LIVER: 16.8 cm in length.. Coarsened liver echotexture. Nodular surface. No focal liver lesions ar e seen.. GALLBLADDER: No evidence of cholelithiasis. No evidence of wall thickening. No pericholecystic fluid identified. CARRERA'S SIGN: Negative. BILIARY SYSTEM: No intrahepatic or extrahepatic biliary ductal dilation. RIGHT KIDNEY: Normal size. No evidence of renal calculi. No evidence of hydronephrosis. No suspicious renal mass. No cyst identified. PANCREAS: Normal where visualized. ABDOMINAL AORTA AND IVC: Visualized portions normal caliber. ASCITES: None seen. IMPRESSION: The liver has a cirrhotic appearance. No masses are identified. DATA REPOSITORY:
== END 2024-05-24 02:24 ==
LOC: DI 02:04
PROVIDERS: PCP Family Medicine; Visit Provider Family Medicine
DX: K74.60 Unspecified cirrhosis of liver (principal)
CPT/HCPCS: 76705

== ENCOUNTER → 2024-06-01 12:54 | Outpatient (BNVA) | payer OTHER, SELFPAY | PROVIDERS: PCP Family Medicine; Referring Provider Family Medicine; Visit Provider Psychiatry & Neurology Neurology | DX: G25.0 Essential tremor (principal); I63.9 Cerebral infarction, unspecified; R41.3 Other amnesia | CPT/HCPCS: 99215 ==

== ENCOUNTER 2024-08-02 15:23 | Outpatient (CLI) | payer OTHER, SELFPAY ==
--- NOTE | 2024-08-02 13:15 | DI.RAD_ITS ---
Exam(s) XR HIP RT AP LAT ONLY EXAM: XR HIP RT AP LAT ONLY INDICATION: F/U RIGHT EVAN. COMPARISON: CR XR HIP RT AP LAT ONLY from 08/11/2023 TECHNIQUE: 2D digital imaging was performed. Two views. FINDINGS: Stable alignment of the right hip prosthesis. No abnormal surrounding bony lucencies. The soft tiss ue calcification is again noted lateral to the hip prosthesis. DATA REPOSITORY: RADIATION DOSE DELIVERED:
== END 2024-08-02 15:24 | disposition home or self-care (01) ==
LOC: DIORS 15:23
PROVIDERS: PCP Family Medicine; Visit Provider Student in an Organized Health Care Education/Training Program
DX: Z47.1 Aftercare following joint replacement surgery (principal); Z96.641 Presence of right artificial hip joint
CPT/HCPCS: 99213; 73502

== ENCOUNTER 2024-08-25 13:37 | Emergency (ER) | payer MEDICARE, SELFPAY ==
[2024-08-25] VITALS (17 sets, daily range): BP systolic 160–184; BP diastolic 57–85; PULSE 56–85; RESP 15–24; TEMP 36.2; O2SAT 92–95
--- NOTE | 2024-08-25 13:30 | RT.EKG_ITS ---
APPROVED REPORT Exam: Resting ECG Reason for Exam: sob/intermittent left sided CP Patient Location: E HR:76 bpm ECG Measurements Heart Rate 76 AXIS VT [id number] P [id number] QRSd 71 QRS 65 QT 400 T 27 QTc 451 Conclusion Atrial fibrillation...V-rate 68- 89, irreg A-activity Low voltage, extremity and precordial leads...extremity<0.5mV, precordial<1.0mV Physician: no stemi
--- NOTE | 2024-08-25 14:00 | DI.RAD_ITS ---
Exam(s) XR PORTABLE CHEST AP EXAM: XR PORTABLE CHEST AP CLINICAL HISTORY: SOB. TECHNIQUE: 2D digital imaging was performed. COMPARISON: CR XR PORTABLE CHEST AP from 11/28/2023 FINDINGS: Single AP portable view. Aortic valve TAVR again noted Heart size is upper normal. The mediastinum is not widened. No pulmonary edema nor obvious pleural effusions evident on this single portable view. There is slig ht asymmetry and density of the lower right lung field but no air bronchograms. Mild pulmonary venou s hypertension pattern but no airspace pulmonary edema. IMPRESSION: Aortic valve TAVR. Heart size upper normal. Mild pulmonary venous hypertension pattern but no airsp leno pulmonary edema. DATA REPOSITORY: RADIATION DOSE DELIVERED:
[2024-08-25] MEDS: Furosemide 100 MG/10 ML VIAL 80 MG IVP (14:19)
[2024-08-25 14:25] LABS: Abs Immature Grans 0.01 10^3/uL (0.0-0.06); Absolute Basophil Count 0.04 10^3/uL (0.0-0.2); Absolute Eosinophil Count 0.22 10^3/uL (0.0-0.7); Absolute Lymphocyte Count 0.98 10^3/uL (1.2-3.4); Basophils % 0.8 %; Eosinophils % 4.3 %; HCT 39.3 % (36.0-46.0); HGB 13.1 g/dL (11.2-15.7); Immature Grans % 0.2 %; MCH 31.2 pg (27.0-33.0); MCHC 33.3 % (32.0-36.0); MCV 94 fL (80-95); MPV 10.9 fL (8.0-11.0); Monocytes % 13.6 %; Neutrophils % 62.1 %; Platelet Count 132 10^3/uL (130-400); RDW 13.9 % (11.7-14.6); RDW-SD 47.1 fL; WBC 5.15 10^3/uL (4.4-10.8)
[2024-08-25 14:38] LABS: ALT 22 U/L (14-59); AST 41 U/L (15-37); Albumin 3.2 g/dL (3.4-5.0); Alkaline Phosphatase 212 U/L (46-116); Anion Gap 2.4 mmol/L (3-11); BUN 16 mg/dL (7-18); Bilirubin, Total 0.89 mg/dL (0.2-1.0); CO2 34.6 mmol/L (21.0-32.0); CREATININE 1.7 mg/dL (0.55-1.02); Chloride 108 mmol/L (98-107); Estimated GFR 29.94 (mL/min/1.73m2); Glucose 179 mg/dL (74-106); Potassium 3.9 mmol/L (3.5-5.1); Sodium 145 mmol/L (136-145); Total Protein 6.5 g/dL (6.4-8.2)
[2024-08-25 14:49] LABS: NT-proBNP 1404 pg/mL (<300); Troponin I 11 ng/L (<or=51)
[2024-08-25] MEDS: Acetaminophen 500 MG TAB 1000 MG PO (15:05)
--- NOTE | 2024-08-25 15:17 | ED.GENADUL_ITS ---
Discharge Plan Disposition Patient Disposition: Home Discharge Details Clinical Impression: Breath shortness, Heart failure with preserved left ventricular function Primary Care Provider: Jena Mitchell ED Provider: Mamie Goodman Home Meds and New Rx's Prescriptions: No Action gabapentin 100 mg capsule 100 mg PO QHS ferrous sulfate [Feosol] 325 mg (65 mg iron) tablet 325 mg PO Q OTHER DAY Jardiance 10 mg tablet 10 mg PO DAILY Patient Comments: will stop once she starts Invokana metoprolol succinate 25 mg tablet extended release 24 hr 25 mg PO DAILY diltiazem HCl [Cartia XT] 300 MG capsule,extended release 24hr 300 mg PO DAILY escitalopram oxalate 20 MG tablet 20 mg PO DAILY fluticasone propionate [Allergy Relief (fluticasone)] 50 mcg/actuation s pray,suspension 2 spray intranasal DAILY PRN Rx Instructions: administer into each nostril aspirin [Adult Aspirin Regimen] 81 mg tablet,delayed release (DR/EC) 81 mg PO DAILY ammonium lactate 12 % cream 1 applic topical DAILY clopidogrel 75 mg tablet 75 mg PO DAILY diltiazem HCl 180 mg capsule,extended release 24 hr 180 mg PO DAILY gabapentin 300 mg capsule 300 mg PO QDAY meclizine 12.5 mg tablet 12.5 mg PO TID PRN Rx Instructions: TAKE ONE TO TWO TABLETS BY MOUTH EVERY 8 HOURS NEEDED ondansetron 4 mg tablet,disintegrating 4 mg PO Q8H pantoprazole 40 mg tablet,delayed release (DR/EC) 40 mg PO DAILY torsemide 20 mg tablet 20 mg PO DAILY Rx Instructions: TAKE 2 TABLETS BY MOUTH IN THE MORNING AND 1 TABLET AT NOON rosuvastatin 20 mg tablet 20 mg PO DAILY Patient Comments: TAKE ONE TABLET BY MOUTH EVERY DAY bupropion HCl 100 mg tablet sustained-release 12 hr 100 mg PO DAILY levothyroxine 150 mcg tablet 150 mcg PO DAILY Patient Comments: TAKE ONE TABLET BY MOUTH EVERY MORNING irbesartan 75 mg tablet 75 mg PO QPM nitroglycerin 0.4 mg tablet, sublingual 0.4 mg sublingual Q5M PRN Patient Comments: PLACE ONE TABLET UNDER THE TONGUE EVERY 5 MINUTES FOR UP TO 3 DOSES NEEDED FOR CHEST PAIN. IF CHEST PAIN STILL PERSISTS CONTACT 911 spironolactone 25 mg tablet 12.5 mg PO DAILY Patient Comments: TAKE ONE-HALF TABLET BY MOUTH EVERY DAY melatonin 10 mg tablet 20 mg PO HS Patient Comments: Take 2 tablet by mouth at bedtime Invokana 100 mg tablet 100 mg PO DAILY Patient Comments: Not started, waiting for insurance approval. Will be replacing Jardiance acetaminophen 325 mg Tablet 325 - 650 mg PO Q6H Qty: 60 0RF potassium chloride [Klor-Con M20] 20 mEq Tablet,Er Particles/Crystals 20 meq PO DAILY Qty: 10 0RF acetaminophen 500 mg tablet 1,000 mg PO Q8H PRN Qty: 90 0RF Rx Instructions: Take two tablets up to every 8 hours as needed for pain Discharge Instructions Instructions: Heart failure with preserved ejection fraction Additional Instructions: You were given a dose of IV Lasix to help with your diuresis. Tomorrow take your medication as discussed and follow-up with your doctor as already scheduled. Return to the emergency department with chest pain severe worsening of your symptoms or any other concerns HPI General Date/Time Provider Initiated Documentation: 08/25/24 14:01 . Limitations to Documentation: no limitations . Information obtained by: patient . HPI Narrative: 79Y F with PMH including HFPEF, CKD, PAF, DM, HTN presents for evaluation of 1 week of SOB. reports symptoms are worse after exertion and also after eating. Reports some mild Chest pain today, but hasn't been having chest pain this week. Has noted some weight gain, but isn't sure if this is because she hasn't been sticking to her diet. Denies fever. Denies cough. Denies leg swelling. Related Data Home Medications ?Medication ?Instructions ?Recorded ?Confirmed diltiazem HCl 300 mg 300 mg PO DAILY 02/29/16 08/25/24 capsule,extended release 24 hr (Cartia XT) escitalopram oxalate 20 mg tablet 20 mg PO DAILY 02/29/16 08/25/24 gabapentin 100 mg capsule 100 mg PO QHS 12/11/20 08/25/24 fluticasone propionate 50 2 spray intranasal DAILY PRN 04/25/21 08/25/24 mcg/actuation nasal spray,suspension (Allergy Relief (fluticasone)) aspirin 81 mg tablet,delayed 81 mg PO DAILY 06/19/22 08/25/24 release (Adult Aspirin Regimen) rosuvastatin 20 mg tablet 20 mg PO DAILY 02/07/23 08/25/24 empagliflozin 10 mg tablet 10 mg PO DAILY 05/20/23 08/25/24 (Jardiance) metoprolol succinate 25 mg 25 mg PO DAILY 05/20/23 08/25/24 tablet,extended release 24 hr ferrous sulfate 325 mg (65 mg 325 mg PO Q OTHER DAY 07/08/23 08/25/24 iron) tablet (Feosol) acetaminophen 500 mg tablet 1,000 mg (2 x 500 mg) PO Q8H PRN 07/29/23 08/25/24 pain #90 tabs bupropion HCl 100 mg tablet,12 hr 100 mg PO DAILY 08/13/23 08/25/24 sustained-release canagliflozin 100 mg tablet 100 mg PO DAILY 08/13/23 08/25/24 (Invokana) irbesartan 75 mg tablet 75 mg PO QPM 08/13/23 08/25/24 levothyroxine 150 mcg tablet 150 mcg PO DAILY 08/13/23 08/25/24 melatonin 10 mg tablet 20 mg PO HS 08/13/23 08/25/24 nitroglycerin 0.4 mg sublingual 0.4 mg sublingual Q5M PRN 08/13/23 08/25/24 tablet spironolactone 25 mg tablet 12.5 mg PO DAILY 08/13/23 08/25/24 acetaminophen 325 mg tablet 325 - 650 mg (1 - 2 x 325 mg) PO 08/15/23 08/25/24 Q6H #60 tabs potassium chloride 20 mEq 20 meq PO DAILY #10 tabs 08/15/23 08/25/24 tablet,extended release(part/cryst) (Klor-Con M) ammonium lactate 12 % topical cream 1 applic topical DAILY 02/10/24 08/25/24 clopidogrel 75 mg tablet 75 mg PO DAILY 02/10/24 08/25/24 diltiazem HCl 180 mg capsule,24 180 mg PO DAILY 02/10/24 08/25/24 hr,extended release gabapentin 300 mg capsule 300 mg PO QDAY 02/10/24 08/25/24 meclizine 12.5 mg tablet 12.5 mg PO TID PRN 02/10/24 08/25/24 ondansetron 4 mg disintegrating 4 mg PO Q8H 02/10/24 08/25/24 tablet pantoprazole 40 mg tablet,delayed 40 mg PO DAILY 02/10/24 08/25/24 release torsemide 20 mg tablet 20 mg PO DAILY 02/10/24 08/25/24 Previous Rx's ?Medication ?Instructions ?Recorded acetaminophen 500 mg tablet 1,000 mg (2 x 500 mg) PO Q8H PRN 07/29/23 pain #90 tabs acetaminophen 325 mg tablet 325 - 650 mg (1 - 2 x 325 mg) PO 08/15/23 Q6H #60 tabs potassium chloride 20 mEq 20 meq PO DAILY #10 tabs 08/15/23 tablet,extended release(part/cryst) (Klor-Con M) Allergies Allergy/AdvReac Type Severity Reaction Status Date / Time tamoxifen Allergy Intermediate liver Verified 08/25/24 13:47 complications amlodipine AdvReac Intermediate leg pain Verified 08/25/24 13:47 atenolol AdvReac Intermediate leg pain Verified 08/25/24 13:47 doxazosin AdvReac Intermediate leg pain Verified 08/25/24 13:47 enalapril AdvReac Intermediate leg pain Verified 08/25/24 13:47 glipizide AdvReac Intermediate body aches Verified 08/25/24 13:47 lisinopril AdvReac Intermediate leg pain Verified 08/25/24 13:47 sertraline AdvReac Intermediate leg pain Verified 08/25/24 13:47 simvastatin (From Zocor) AdvReac Intermediate leg pain Verified 08/25/24 13:47 Mronpzx-WGJ-JmV Reductase AdvReac Intermediate leg pains Verified 08/25/24 13:47 Inhibitor (Gyppqzp-Lln-Svt Reductase Inhibitor) ticlopidine AdvReac Intermediate leg pain Verified 08/25/24 13:47 valsartan AdvReac Intermediate leg pain Verified 08/25/24 13:47 General Stated Complaint: SOB JUANITA: 3 Exam Narrative Exam Narrative: Review of Systems: All systems reviewed & are unremarkable except as noted in HPI and below Well-developed, no acute distress NCAT PERRL, normal conjunctiva RRR no murmur Unlabored respiratory effort no hypoxia, crackles at bases Nondistended abdomen Trace pedal edema Course Vital Signs Vital signs: Vital Signs Temperature 36.2 C L 08/25/24 13:40 Pulse 85 08/25/24 13:40 Respiratory Rate 20 08/25/24 13:40 Blood Pressure 180/85 H 08/25/24 13:40 Pulse Oximetry 95 08/25/24 13:40 Temperature 36.2 C L 08/25/24 13:50 Temperature Source Tympanic 08/25/24 13:50 Pulse 62 08/25/24 14:01 Pulse 82 08/25/24 14:20 Respiratory Rate 18 08/25/24 14:20 Blood Pressure 167/57 H 08/25/24 14:01 Blood Pressure Mean 92 08/25/24 14:01 Blood Pressure Position Sitting 08/25/24 13:50 Pulse Oximetry 94 08/25/24 14:20 Oxygen Delivery Method Room Air 08/25/24 13:50 Oxygen Flow Rate 0 08/25/24 13:50 Pain Level 8 08/25/24 15:05 Lab/Test Results Lab/Test Results: Laboratory Tests Range/Units 08/25/24 14:07 WBC (4.4-10.8) 10^3/uL 5.15 RBC (3.93-5.22) 10^6/uL 4.20 Hgb (11.2-15.7) g/dL 13.1 Hct (36.0-46.0) % 39.3 MCV (80-95) fL 94 MCH (27.0-33.0) pg 31.2 MCHC (32.0-36.0) % 33.3 RDW (11.7-14.6) % 13.9 Plt Count (130-400) 10^3/uL 132 MPV (8.0-11.0) fL 10.9 Immature Gran % % 0.2 Neutrophils % % 62.1 Lymphocytes % % 19.0 Monocytes % % 13.6 Eosinophils % % 4.3 Basophils % % 0.8 Nucleated RBC % (0.0-0.3) % 0.0 Absolute Neutrophils (1.2-6.7) 10^3/uL 3.20 Absolute Lymphocytes (1.2-3.4) 10^3/uL 0.98 L Absolute Monocytes (0.1-0.8) 10^3/uL 0.70 Absolute Eosinophils (0.0-0.7) 10^3/uL 0.22 Absolute Basophils (0.0-0.2) 10^3/uL 0.04 Sodium (136-145) mmol/L 145 Potassium (3.5-5.1) mmol/L 3.9 Chloride (98-107) mmol/L 108 H Carbon Dioxide (21.0-32.0) mmol/L 34.6 H Anion Gap (3-11) mmol/L 2.4 L BUN (7-18) mg/dL 16 Creatinine (0.55-1.02) mg/dL 1.7 H Est GFR (CKD-EPI 2020) (mL/min/1.73m2) 29.94 Glucose (74-106) mg/dL 179 H Calcium (8.5-10.1) mg/dL 9.0 Magnesium (1.8-2.4) mg/dL 2.0 Total Bilirubin (0.2-1.0) mg/dL 0.89 AST (15-37) U/L 41 H ALT (14-59) U/L 22 Alkaline Phosphatase (46-116) U/L 212 H Troponin I (<or=51) ng/L 11 NT-Pro-B Natriuret Pep (<300) pg/mL 1404 H Total Protein (6.4-8.2) g/dL 6.5 Albumin (3.4-5.0) g/dL 3.2 L Medical Decision Making Emergent evaluation of shortness of breath. Initial differential includes viral illness, pneumonia, CHF exacerbation. She does have some crackles on examination though she is not hypoxic or having any signs of respiratory distress. Plan for IV diuretic, lab work and chest x-ray imaging. On lab work review, there is no leukocytosis or anemia. No significant electrolyte derangement. Her creatinine is at baseline. Her troponin is not elevated. Her BNP is slightly elevated but not a significant value for this patient. Chest xray doesn't reveal focal consolidation or pleural effusion. Ambulatory trial didn't result in hypoxia. Stable for discharge home. Has follow-up scheduled with PCP in 5 days. Will start daily weights and return precautions advised. Quality:SDOH Health Related Social Needs: No Data to Display PFSH All Active Problems (Updated 08/25/24 @ 15:52 by Mamie Goodman MD) Breath shortness (Acute) Memory changes (Acute) Essential tremor (Acute) Heart failure with preserved left ventricular function (Acute) CKD (chronic kidney disease) (Chronic) PAF (paroxysmal atrial fibrillation) (Acute) Acute hypoxic respiratory failure (Acute) Decreased renal function (Acute) Hypoxia (Acute) CHF (congestive heart failure) (Chronic) Diabetes type 2, controlled (Chronic) Hypertension (Chronic) Pulmonary embolism (Acute) Loosening of prosthesis of right hip joint (Acute) s/p Revision R Acetabular Component (07/29/23) History of revision of total hip arthroplasty (Acute 07/29/23) Strain of right iliopsoas muscle (Acute) Imbalance (Acute) Displaced fracture of greater trochanter of right femur, subsequent encounter for closed fracture with nonunion (Acute) Strain of right iliopsoas muscle (Acute) Unstable angina (Acute) Dyspnea (Acute) Angina at rest (Acute) Coronary atherosclerosis (Acute) Spinal stenosis (Acute) Left knee DJD (Acute) Depo-Medrol injection: 06/24/2022 Benign paroxysmal positional vertigo (Acute) Sleep apnea (Acute) Mitral regurgitation (Chronic) Diastolic dysfunction (Acute) 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) GERD (gastroesophageal reflux disease) (Chronic) Renal artery stenosis (Chronic) History of syncope (Chronic) SVT (supraventricular tachycardia) (Chronic) Diabetes mellitus (Chronic) Medical History History of stent insertion of renal artery Atherosclerosis of coronary artery bypass graft without angina pectoris Cerebral infarction Malignant neoplasm of breast (female) Obesity Carotid artery stenosis Femoral artery stenosis History of transcatheter aortic valve implantation (DRE) Urge incontinence of urine Peptic ulcer Type 2 diabetes mellitus Headache Cirrhosis of liver Insomnia Splenomegaly Postmenopausal osteoporosis Edema of both lower extremities Depressive disorder Marginal zone lymphoma Heart failure Hypokalemia Pulmonary edema Pleural effusion History of small bowel obstruction Dizziness Difficult airway Per [facility] anesthesia notes she is a difficult airway. She has had previous intubations with VL grade 1 view. Also easy mask with 90 mm OPA, and successful LMA placement in the past. Shortness of breath Nasal septal deviation Sensorineural hearing loss of both ears Recurrent UTI (03/15/16) Gastro-esophageal reflux disease without esophagitis Hyperlipidemia STEVENS (nonalcoholic steatohepatitis) TERRY (obstructive sleep apnea) PVD (peripheral vascular disease) Hypertension Hypothyroidism Syncope SVT (supraventricular tachycardia) F/U with Dr. Sweet Surgical History S/P cardiac catheterization History of heart assist device [employer] [facility] [employer] History of lumpectomy of right breast Hx of tonsillectomy History of total left hip replacement History of esophagogastroduodenoscopy (EGD) (~07/2021) History of colonoscopy (~07/2021) Rotator Cuff Repair Partial mastectomy with sentinal node Pt. states this is incorrect, she had a lumpectomy Nail removal (toe) Excision of neck mass Family History Mother Malignant tumor of stomach Father Malignant carcinoid tumor of lung Social History Smoking/Tobacco Use Status: Never Smoking risk assessment performed?: Yes Alcohol Intake: never Drug use: Never Substance use type: does not use Household members: significant other Housing: house Number of Children: 4 current occupation: Retired Do you feel safe at home: Yes Do you feel safe in your relationship?: Yes Female Reproductive History Menstrual Menopause type: natural
[2024-08-25 15:30] LABS: Troponin I 12 ng/L (<or=51)
== END 2024-08-25 16:05 | disposition home or self-care (01) ==
PROVIDERS: Emergency Provider Emergency Medicine; PCP Family Medicine
DX: R06.02 Shortness of breath (principal); R07.9 Chest pain, unspecified; E11.22 Type 2 diabetes mellitus with diabetic chronic kidney disease; I13.0 Hypertensive heart and chronic kidney disease with heart failure and stage 1 through stage 4 chronic kidney disease, or unspecified chronic kidney disease; N18.9 Chronic kidney disease, unspecified; I50.32 Chronic diastolic (congestive) heart failure; I25.10 Atherosclerotic heart disease of native coronary artery without angina pectoris; I25.2 Old myocardial infarction; I48.0 Paroxysmal atrial fibrillation; Z95.5 Presence of coronary angioplasty implant and graft; Z79.01 Long term (current) use of anticoagulants
CPT/HCPCS: 80053; 93005; 96374; 99284; 71045; 83735; 83880; 84484; 85025; 93010; J1940

== ENCOUNTER 2024-08-30 16:05 | Outpatient (REF) | payer MEDICARE, SELFPAY ==
[2024-08-30 19:47] LABS: COMMENT (LAB VIEW ONLY) 28.21 mg/dL; Microalb ug/mg Crea 21.6 ug/mg Cr
== END 2024-08-30 16:06 | disposition home or self-care (01) ==
LOC: NCHCN 16:05
PROVIDERS: PCP Family Medicine; Visit Provider Family Medicine
DX: E11.9 Type 2 diabetes mellitus without complications (principal)
CPT/HCPCS: 82043; 82570

== ENCOUNTER 2024-09-14 18:25 | Outpatient (REF) | payer MEDICARE, SELFPAY ==
[2024-09-14 20:06] LABS: BUN 24 mg/dL (7-18); CREATININE 1.7 mg/dL (0.55-1.02); Calcium 9.1 mg/dL (8.5-10.1); Chloride 104 mmol/L (98-107); Estimated GFR 29.94 (mL/min/1.73m2); Glucose 278 mg/dL (74-106); Potassium 4.1 mmol/L (3.5-5.1); Sodium 142 mmol/L (136-145)
== END 2024-09-14 18:26 | disposition home or self-care (01) ==
LOC: NCHCN 18:25
PROVIDERS: PCP Family Medicine; Visit Provider Family Medicine
DX: I50.9 Heart failure, unspecified (principal)
CPT/HCPCS: 80048

== ENCOUNTER 2024-11-12 14:32 | Outpatient (REF) | payer MEDICARE, SELFPAY ==
[2024-11-12 21:49] LABS: ALT 35 U/L (14-59); AST 45 U/L (15-37); Albumin 3.5 g/dL (3.4-5.0); Alkaline Phosphatase 188 U/L (46-116); Anion Gap 10.6 mmol/L (3-11); BUN 19 mg/dL (7-18); CO2 28.4 mmol/L (21.0-32.0); CREATININE 1.8 mg/dL (0.55-1.02); Calcium 9.4 mg/dL (8.5-10.1); Chloride 104 mmol/L (98-107); Estimated GFR 27.96 (mL/min/1.73m2); Glucose 190 mg/dL (74-106); Potassium 3.5 mmol/L (3.5-5.1); Sodium 143 mmol/L (136-145); Total Protein 6.4 g/dL (6.4-8.2)
[2024-11-12 21:56] LABS: TSH (W/Ref FT4) 0.11 uIU/mL (0.36-3.74)
[2024-11-13 22:08] LABS: T4, Free 2.1 ng/dL (0.8-2.2)
== END 2024-11-12 14:33 | disposition home or self-care (01) ==
LOC: NCHCN 14:32
PROVIDERS: PCP Family Medicine; Visit Provider Family Medicine
DX: E03.9 Hypothyroidism, unspecified (principal); I50.30 Unspecified diastolic (congestive) heart failure
CPT/HCPCS: 80053; 84439; 84443

== ENCOUNTER 2025-02-11 14:43 | Outpatient (REF) | payer MEDICARE, SELFPAY ==
[2025-02-11 21:42] LABS: Anion Gap 9.3 mmol/L (3-11); BUN 23 mg/dL (7-18); CO2 29.7 mmol/L (21.0-32.0); CREATININE 1.9 mg/dL (0.55-1.02); Calcium 9.4 mg/dL (8.5-10.1); Chloride 101 mmol/L (98-107); Glucose 279 mg/dL (74-106); Potassium 3.1 mmol/L (3.5-5.1); Sodium 140 mmol/L (136-145); TSH (W/Ref FT4) 0.06 uIU/mL (0.36-3.74)
[2025-02-11 22:03] LABS: FREE T4 1.41 ng/dL (0.76-1.46)
== END 2025-02-11 14:44 | disposition home or self-care (01) ==
LOC: NCHCN 14:43
PROVIDERS: PCP Family Medicine; Visit Provider Family Medicine
DX: E03.9 Hypothyroidism, unspecified (principal)
CPT/HCPCS: 80048; 84439; 84443

== ENCOUNTER 2025-02-28 14:25 | Outpatient (REF) | payer MEDICARE, SELFPAY ==
[2025-02-28 21:21] LABS: Anion Gap 10.1 mmol/L (3-11); BUN 22 mg/dL (7-18); CO2 26.9 mmol/L (21.0-32.0); Calcium 9.0 mg/dL (8.5-10.1); Chloride 105 mmol/L (98-107); Estimated GFR 29.94 (mL/min/1.73m2); Glucose 243 mg/dL (74-106); Potassium 4.6 mmol/L (3.5-5.1); Sodium 142 mmol/L (136-145)
== END 2025-02-28 14:26 | disposition home or self-care (01) ==
LOC: LBN 14:25
PROVIDERS: PCP Family Medicine; Visit Provider Nurse Practitioner Family
DX: E87.6 Hypokalemia (principal)
CPT/HCPCS: 80048

== ENCOUNTER 2025-03-16 08:47 | Outpatient (CLI) | payer MEDICARE, SELFPAY ==
--- NOTE | 2025-03-16 06:00 | DI.RAD_ITS ---
Exam(s) XR PAIN CLINIC LUMBAR SP 2V EXAM: XR PAIN CLINIC LUMBAR SP 2V CLINICAL HISTORY: Dx: Lumbar Spondylosis TECHNIQUE: 2D and realtime digital imaging was performed. CONTRAST MATERIAL: Refer to procedure report. COMPARISON: No exams were available for comparison FINDINGS: Fluoroscopy was provided for Dr. Burk during the performance of a lumbar medial branch block. Please refer to the procedure report for complete details. Ka,r=25 mGy IMPRESSION: RADIATION DOSE DELIVERED: 0.0 0.0 0
[2025-03-16 08:38] VITALS: BP 137/68; PULSE 76; RESP 18; TEMP 36.5; O2SAT 97
[2025-03-16 09:22] VITALS: PULSE 78; PULSE 80; RESP 20; O2SAT 95
[2025-03-16 09:30] VITALS: PULSE 81; PULSE 90; RESP 19; O2SAT 95
[2025-03-16 09:31] VITALS: BP 124/69; PULSE 68; PULSE 69; RESP 22; O2SAT 95
--- NOTE | 2025-03-16 09:37 | PDOC.PAIN_ITS ---
Date of service: 03/16/25 Time of Service: 09:37 Pain Managment Procedure Note Procedure Note Procedure Note: PROCEDURE NOTE Bilateral Lumbar Medial Branch Blocks Date of Service: March 16, 2025 Patient: Silvia Vega Provider: Shawn Burk DO, MPH Silvia Love Vega has been referred to the [facility] for lumbar medial branch blocks. Pre-operative diagnosis: Lumbar Spondylosis without Myelopathy ICD-10 M47.816 Post-operative diagnosis: Same Pre-procedure pain: VAS= 7/10 COMMENTS: I previously evaluated her in the office. Her symptoms are unchanged. Tabatha was interviewed and the medical records were reviewed. There were no medical, pharmacologic, radiographic or other structural contraindications to attempting fluoroscopically guided local anesthetic lumbar medial branch blocks. Risks and potential side effects were discussed. I also discussed the potential benefit(s) of the procedure with Silvia, and voiced concerns were addressed. After Silvia was completely informed about the procedure, the printed consent form was signed. A standard time-out procedure was performed. Silvia was placed in the prone position on the fluoroscopy table. Automated blood pressure cuff and pulse oximeter were applied. The skin entry points for approaching the anatomic target points of the segmental medial branches of clarissa ateral L3,L4,L5 were identified with fluoroscopy and marked. The skin at the target site area was thoroughly prepared with Chlorhexadine. The skin was then draped. Next, a 25 gauge 3.5 spinal needle was placed under fluoroscopic guidance down on to the target point (the articular pillar) for each respective segmental medial branch. Position was confirmed in A/P and lateral views. Aspiration revealed no blood or clear fluid. Next, 0.25ml of omnipaque 240 was injected at each level. No contrast following a vascular or neural pattern was visualized under continuous fluoroscopy. Next, 0.25 ml of preservative-free 0.5% bupivicaine was injected at each level. There was no unusual discomfort expressed by Silvia. The needles were withdrawn without difficulty. (49 mls of Omnipaque was wasted) Silvia was observed and was without hemodynamic, neurologic, or allergic reactions.? Fluoroscopic images were digitally archived. Provacative testing using the Modified Jacobsen's facet loading test- Left side Right Side Directly before the block VAS (0-10) = 7/10 VAS (0-10) = 7/10 Five minutes after the block VAS (0-10) = 0/10 VAS (0-10) = 0/10 Percentage relief obtained with this diagnostic block 100% 100% Any improved physical functioning directly after the blocks? Able to bend and rotate at the low back with very little pain. Follow up plans and appointments were discussed with Silvia. Silvia was instructed to keep careful note of how the usual pain was modified by these injections. Specifically, to keep a pain diary for the next 4 hours using a numeric pain scale of 0-10 and report these results. Post procedure instruction was given as documented in the nursing documentation and having met discharge criteria, the patient was [facility] from the [facility]. Based on the medial branches blocked today, if they patient has adequate relief and we are able to proceed to radiofrequency ablation, the treatment should result in the denervation of the bilateral L4-L5 and L5-S1 facet joints. We would expect to denervate a total of 4 facets during the radiofrequency ablation. COMMENTS: No apparent complications. Post-procedure pain: VAS= 0/10 Silvia will call back with 0-4 hour post-procedure pain scores. I personally performed the entire procedure. SHAWN BURK DO, MPH ABPM&R-subspecialty board certification in Pain Medicine [facility] Coding Conscious Sedation used for procedure: No CPT Codes: LMBB (includes Fluoro) Lumbar/Sacral, 2nd lvl - 24172 ([id number] ~G) LMBB (includes Fluoro) Lumbar/Sacral, single lvl *BILATERAL* - [id number] ([id number]~G5) Additional Codes: Date of Service (01814) Date of service: 03/16/25 Diagnoses: Lumbosacral spondylosis without myelopathy
[2025-03-16] MEDS: Bupivacaine 0.5% Pres-Free 10 ML VIAL IJ (09:42)
[2025-03-16] MEDS: Nerve Block Tray 1 EACH MC (09:42)
[2025-03-16] MEDS: Omnipaque 240 MG/ML 50 ML BTL IJ (09:42)
== END 2025-03-16 08:48 | disposition home or self-care (01) ==
LOC: PC 08:47
PROVIDERS: PCP Family Medicine; Visit Provider Preventive Medicine Occupational Medicine
DX: M54.50 Low back pain, unspecified (principal); M47.816 Spondylosis without myelopathy or radiculopathy, lumbar region
CPT/HCPCS: 64493; 64494; 72100; J0665; Q9967

== ENCOUNTER 2025-05-06 15:09 | Outpatient (REF) | payer MEDICARE, SELFPAY ==
[2025-05-06 21:42] LABS: Anion Gap 7.6 mmol/L (3-11); BUN 19 mg/dL (7-18); CO2 27.4 mmol/L (21.0-32.0); Calcium 9.8 mg/dL (8.5-10.1); Chloride 105 mmol/L (98-107); Estimated GFR 24.48 (mL/min/1.73m2); Glucose 165 mg/dL (74-106); Potassium 3.9 mmol/L (3.5-5.1); Sodium 140 mmol/L (136-145); TSH (W/Ref FT4) 0.07 uIU/mL (0.36-3.74)
== END 2025-05-06 15:10 | disposition home or self-care (01) ==
LOC: NCHCN 15:09
PROVIDERS: PCP Family Medicine; Visit Provider Family Medicine
DX: E03.9 Hypothyroidism, unspecified (principal)
CPT/HCPCS: 80048; 84439; 84443

== ENCOUNTER 2025-05-26 20:14 | Outpatient (REF) | payer MEDICARE, SELFPAY ==
[2025-05-26 21:16] LABS: RBC 0-2 HPF (0-2)
== END 2025-05-26 20:15 | disposition home or self-care (01) ==
LOC: LBN 20:14
PROVIDERS: PCP Family Medicine; Referring Provider Physician Assistant Medical; Visit Provider Physician Assistant Medical
DX: N39.0 Urinary tract infection, site not specified (principal)
CPT/HCPCS: 87077; 81015; 87086; 87186

== ENCOUNTER 2025-05-28 09:54 | Emergency (ER) | payer MEDICARE, SELFPAY ==
[2025-05-28] VITALS (44 sets, daily range): BP systolic 124–191; BP diastolic 51–97; PULSE 70–103; RESP 11–21; TEMP 36.6; O2SAT 93–98
--- NOTE | 2025-05-28 10:00 | RT.EKG_ITS ---
APPROVED REPORT Exam: Resting ECG Reason for Exam: Dizziness Patient Location: E HR:89 bpm ECG Measurements Heart Rate 89 AXIS MD [id number] P [id number] QRSd 104 QRS 61 QT 419 T -10 QTc 512 Conclusion Atrial fibrillation...V-rate 74- 99, irreg A-activity Low voltage, extremity and precordial leads...extremity<0.5mV, precordial<1.0mV Consider anteroseptal infarct...Q >30mS, dimin R, V1-V2 Prolonged QT interval...QTc >500mS
--- NOTE | 2025-05-28 10:15 | DI.RAD_ITS ---
Exam(s) XR CHEST 2V PA LATERAL EXAM: XR CHEST 2V PA LATERAL CLINICAL HISTORY: Falls, Dizzy. TECHNIQUE: 2D digital imaging was performed. COMPARISON: CR XR PORTABLE CHEST AP from 02/07/2023 CR XR PORTABLE CHEST AP from 08/25/2024 FINDINGS: 2 views: There is an aortic valve TAVR again noted Heart size is normal. The mediastinum is not widened. The left lung is clear. There is a new nodule in the mid right lung field measuring 9 mm. There also mildly increased markings in the right lung base which may represent developing infiltrate. There are no pleural effusions IMPRESSION: There is a new 9 mm noncalcified nodule in the mid right lung. Follow-up CT scan recommended.There are mildly increased markings in the right lung base region which may represent developing infiltrate. There are no pleural effusions. Preliminary virtual Radiology report was reviewed. DATA REPOSITORY: RADIATION DOSE DELIVERED:
--- NOTE | 2025-05-28 10:30 | DI.RAD_ITS ---
Exam(s) XR WRIST RT COMPLETE EXAM: XR WRIST RT COMPLETE CLINICAL HISTORY: Deformity, Fall. TECHNIQUE: 2D digital imaging was performed. COMPARISON: No exams were available for comparison FINDINGS: 3 views No evidence of acute fracture nor dislocation. There is mild positive ulnar variance. Scaphoid and scapholunate distance are normal. There are moderate degenerative changes in the 1st carpometacarpal joint. Other articulations of the wrist appear unremarkable. No osseous lesions nor erosions. No radiopaque foreign bodies. IMPRESSION: No obvious fractures evident. Mild positive ulnar variance noted. There are moderate degenerative changes in the 1st carpometacarpal joint. DATA REPOSITORY: RADIATION DOSE DELIVERED:
--- NOTE | 2025-05-28 10:32 | W.ED.GENAD ---
Discharge Plan Disposition Patient Disposition: Home Condition: Stable Discharge Details Clinical Impression: Acute hypokalemia, Closed fracture of scaphoid of right wrist Primary Care Provider: Jena Mitchell ED Provider: Sylvia Fernandez Kelly Meds and New Rx's Prescriptions: Continued gabapentin 100 mg capsule 100 mg PO QHS Patient Comments: prn ferrous sulfate [Feosol] 325 mg (65 mg iron) tablet 325 mg PO Q OTHER DAY metoprolol succinate 25 mg tablet extended release 24 hr 25 mg PO DAILY dapagliflozin propanediol [Farxiga] 10 mg tablet 10 mg PO DAILY diltiazem HCl [Cartia XT] 300 MG capsule,extended release 24hr 300 mg PO DAILY Patient Comments: not on med list from pharmacy escitalopram oxalate 20 MG tablet 20 mg PO DAILY fluticasone propionate [Allergy Relief (fluticasone)] 50 mcg/actuation spray,suspension 2 spray intranasal DAILY PRN Patient Comments: prn Rx Instructions: administer into each nostril aspirin [Adult Aspirin Regimen] 81 mg tablet,delayed release (DR/EC) 81 mg PO DAILY ammonium lactate 12 % cream 1 applic topical DAILY diltiazem HCl 180 mg capsule,extended release 24 hr 180 mg PO DAILY gabapentin 300 mg capsule 300 mg PO QDAY Patient Comments: prn meclizine 12.5 mg tablet 12.5 mg PO TID PRN Patient Comments: prn Rx Instructions: TAKE ONE TO TWO TABLETS BY MOUTH EVERY 8 HOURS NEEDED ondansetron 4 mg tablet,disintegrating 4 mg PO Q8H Patient Comments: prn pantoprazole 40 mg tablet,delayed release (DR/EC) 40 mg PO DAILY torsemide 20 mg tablet 20 mg PO DAILY Rx Instructions: TAKE 2 TABLETS BY MOUTH IN THE MORNING AND 1 TABLET AT NOON rosuvastatin 20 mg tablet 20 mg PO DAILY Patient Comments: TAKE ONE TABLET BY MOUTH EVERY DAY bupropion HCl 100 mg tablet sustained-release 12 hr 100 mg PO DAILY Patient Comments: not on med list from pharmacy levothyroxine 150 mcg tablet 150 mcg PO DAILY Patient Comments: TAKE ONE TABLET BY MOUTH EVERY MORNING irbesartan 75 mg tablet 75 mg PO QPM Patient Comments: not on med list from pharmacy nitroglycerin 0.4 mg tablet, sublingual 0.4 mg sublingual Q5M PRN Patient Comments: PLACE ONE TABLET UNDER THE TONGUE EVERY 5 MINUTES FOR UP TO 3 DOSES NEEDED FOR CHEST PAIN. IF CHEST PAIN STILL PERSISTS CONTACT 911 spironolactone 25 mg tablet 12.5 mg PO DAILY Patient Comments: TAKE ONE-HALF TABLET BY MOUTH EVERY DAY melatonin 10 mg tablet 20 mg PO HS Patient Comments: Take 2 tablet by mouth at bedtime Invokana 100 mg tablet 100 mg PO DAILY Patient Comments: Not started, waiting for insurance approval. Will be replacing Jardiance acetaminophen 325 mg Tablet 325 - 650 mg PO Q6H Qty: 60 0RF Patient Comments: prn potassium chloride [Klor-Con M20] 20 mEq Tablet,Er Particles/Crystals 20 meq PO DAILY Qty: 10 0RF acetaminophen 500 mg tablet 1,000 mg PO Q8H PRN Qty: 90 0RF Patient Comments: prn Rx Instructions: Take two tablets up to every 8 hours as needed for pain cephalexin 250 mg capsule 250 mg PO BID Rybelsus 3 mg tablet 3 mg PO DAILY Patient Comments: TAKE ONE TABLET BY MOUTH EVERY DAY Discharge Instructions Instructions: Hypokalemia, High Potassium Diet, Wrist Fracture (DC) Additional Instructions: Your potassium was very low today, you were given oral and IV replenishment of the potassium. There is possible a subtle non-displaced fracture in a small bone of your wrist. Please wear the splint except for showering. Please elevate it while sitting or lying down and apply ice every 20 minutes for the first 2 to 3 days. Please follow-up with orthopedics within the next week for further evaluation and imaging. There is also a small questionable lung nodule on the right mid lobe. Please follow-up regarding this with your primary care provider for repeat imaging and follow-up. Follow up with primary care provider in 3-5 days. Return to ED sooner if any worsening or concerns. Referrals: Jena Mitchell MD [Primary Care Provider, Medicine] - 5 days Referral Note: ER follow up please call for an appointment Clinical Impression: Acute hypokalemia Jose Alberto Galindo MD [ [facility] STAFF PHYSICIAN, Orthopaedic Surgical] - 1 week Referral Note: ER follow up Right wrist scaphoid fracture? Discharge Data Discharge Date/Time-TO BE ENTERED AT DEPARTURE: 05/28/25 15:30 HPI General Mode of arrival: wheelchair. Date/Time Provider Initiated Documentation: 05/28/25 10:21. Limitations to Documentation: no limitations. Information obtained by: patient, family, RN notes reviewed and old records reviewed. HPI Narrative: 80-year-old female presents to the ER accompanied by her with a chief complaint of multiple falls over the last week. Patient states that last night while she was in the kitchen in front of the refrigerator she became dizzy and fell injuring her right wrist. She is unsure if this occurs with changing positions. She was recently diagnosed with urinary tract infection and started cephalexin 250 mg yesterday. She denies any loss of consciousness or hitting her head. Her did witness the fall. She also endorses some right lower quadrant abdominal pain which radiates into the back which prompted her to be seen in the clinic and diagnosed with a UTI. This is associated with nausea vomiting diarrhea. She does have a past medical history of renal artery atherosclerosis stents placed in her renal artery, CVA, breast neoplasm, carotid artery stenosis, TAVR, heart failure, CKD, PVD, type 2 diabetes, cirrhosis, depression hypokalemia, GERD, STEVENS, obstructive sleep apnea, peripheral vascular disease, hypertension hypothyroidism and SVT. She has had a total left hip replacement rotator cuff repair mastectomy. Related Data Home Medications ?Medication ?Instructions ?Recorded ?Confirmed diltiazem HCl 300 mg 300 mg PO DAILY 02/29/16 05/28/25 capsule,extended release 24 hr (Cartia XT) escitalopram oxalate 20 mg tablet 20 mg PO DAILY 02/29/16 05/28/25 gabapentin 100 mg capsule 100 mg PO QHS 12/11/20 05/28/25 fluticasone propionate 50 2 spray intranasal DAILY PRN 04/25/21 05/28/25 mcg/actuation nasal spray,suspension (Allergy Relief (fluticasone)) aspirin 81 mg tablet,delayed 81 mg PO DAILY 06/19/22 05/28/25 release (Adult Aspirin Regimen) rosuvastatin 20 mg tablet 20 mg PO DAILY 02/07/23 05/28/25 metoprolol succinate 25 mg 25 mg PO DAILY 05/20/23 05/28/25 tablet,extended release 24 hr ferrous sulfate 325 mg (65 mg 325 mg PO Q OTHER DAY 07/08/23 05/28/25 iron) tablet (Feosol) acetaminophen 500 mg tablet 1,000 mg (2 x 500 mg) PO Q8H PRN 07/29/23 05/28/25 pain #90 tabs bupropion HCl 100 mg tablet,12 hr 100 mg PO DAILY 08/13/23 05/28/25 sustained-release canagliflozin 100 mg tablet 100 mg PO DAILY 08/13/23 05/28/25 (Invokana) irbesartan 75 mg tablet 75 mg PO QPM 08/13/23 05/28/25 levothyroxine 150 mcg tablet 150 mcg PO DAILY 08/13/23 05/28/25 melatonin 10 mg tablet 20 mg PO HS 08/13/23 05/28/25 nitroglycerin 0.4 mg sublingual 0.4 mg sublingual Q5M PRN 08/13/23 05/28/25 tablet spironolactone 25 mg tablet 12.5 mg PO DAILY 08/13/23 05/28/25 acetaminophen 325 mg tablet 325 - 650 mg (1 - 2 x 325 mg) PO 08/15/23 05/28/25 Q6H #60 tabs potassium chloride 20 mEq 20 meq PO DAILY #10 tabs 08/15/23 05/28/25 tablet,extended release(part/cryst) (Klor-Con M) ammonium lactate 12 % topical cream 1 applic topical DAILY 02/10/24 05/28/25 diltiazem HCl 180 mg capsule,24 180 mg PO DAILY 02/10/24 05/28/25 hr,extended release gabapentin 300 mg capsule 300 mg PO QDAY 02/10/24 05/28/25 meclizine 12.5 mg tablet 12.5 mg PO TID PRN 02/10/24 05/28/25 ondansetron 4 mg disintegrating 4 mg PO Q8H 02/10/24 05/28/25 tablet pantoprazole 40 mg tablet,delayed 40 mg PO DAILY 02/10/24 05/28/25 release torsemide 20 mg tablet 20 mg PO DAILY 02/10/24 05/28/25 dapagliflozin propanediol 10 mg 10 mg PO DAILY 01/12/25 05/28/25 tablet (Farxiga) cephalexin 250 mg capsule 250 mg PO BID 05/28/25 05/28/25 semaglutide 3 mg tablet (Rybelsus) 3 mg PO DAILY 05/28/25 05/28/25 Previous Rx's ?Medication ?Instructions ?Recorded acetaminophen 500 mg tablet 1,000 mg (2 x 500 mg) PO Q8H PRN 07/29/23 pain #90 tabs acetaminophen 325 mg tablet 325 - 650 mg (1 - 2 x 325 mg) PO 08/15/23 Q6H #60 tabs potassium chloride 20 mEq 20 meq PO DAILY #10 tabs 08/15/23 tablet,extended release(part/cryst) (Klor-Con M) Allergies Allergy/AdvReac Type Severity Reaction Status Date / Time tamoxifen Allergy Intermediate liver Verified 05/28/25 10:08 complications amlodipine AdvReac Intermediate leg pain Verified 05/28/25 10:08 atenolol AdvReac Intermediate leg pain Verified 05/28/25 10:08 doxazosin AdvReac Intermediate leg pain Verified 05/28/25 10:08 enalapril AdvReac Intermediate leg pain Verified 05/28/25 10:08 glipizide AdvReac Intermediate body aches Verified 05/28/25 10:08 lisinopril AdvReac Intermediate leg pain Verified 05/28/25 10:08 sertraline AdvReac Intermediate leg pain Verified 05/28/25 10:08 simvastatin (From Zocor) AdvReac Intermediate leg pain Verified 05/28/25 10:08 Clcakco-AOH-PbU Reductase AdvReac Intermediate leg pains Verified 05/28/25 10:08 Inhibitor (Bzofwar-Huu-Ejs Reductase Inhibitor) ticlopidine AdvReac Intermediate leg pain Verified 05/28/25 10:08 valsartan AdvReac Intermediate leg pain Verified 05/28/25 10:08 General Stated Complaint: Dizzy/Sync JUANITA: 3 Review of Systems All systems reviewed & are unremarkable except as noted in HPI and below Constitutional Constitutional: Reports as per HPI, Reports frequent falls and Reports headache(s) ENT Ears, Nose, Mouth, and Throat: Reports headache(s) Cardiovascular Cardiovascular: Denies chest pain and Denies dyspnea Respiratory Respiratory: Denies chest congestion, Denies cough, Denies dyspnea and Denies wheezing Gastrointestinal Gastrointestinal: Reports abdominal pain, Reports diarrhea, Reports nausea and Reports vomiting Neurologic Neurologic: Reports frequent falls, Reports headache(s) and Denies other visual disturbances Allergic/Immunologic Allergic/Immunologic: Denies wheezing Exam Narrative Exam Narrative: Constitutional: Alert and oriented x3. Appears stated age. Normal body habitus. Head: Normocephalic, no trauma. Eyes: Pupils PERRL, Red reflex noted, EOM's intact. Eyelids symmetrical without lesions, discharge, or swelling. ENT: Bilateral TM's WNL, External ear normal to inspection, no mastoid TTP, swelling, or erythema, Nasal turbinates WNL, no nasal discharge. Normal dentition, Posterior pharynx WNL, no exudate. Chest: RRRnormal S1, S2, distal pulses intact. Resp: Lungs clear to auscultation bilaterally, no wheezes, rales, or rhonchi. Abdomen: Soft, non-distended, Normoactive bowel sounds all 4 quads. Musculoskeletal: Normal gait, Moves all 4 extremities without difficulty. Skin: No suspicious rashes or lesions. Capillary refill less than 2 sec. Neurologic: Cranial nerves II-XII intact. Alert and oriented x 3. Motor: No deficits noted. Sensory: Intact bilaterally all 4 extremities. Hematologic/Lymphatic: No ecchymosis, no lymphadenopathy. Course Vital Signs Vital signs: Vital Signs Temperature 36.6 C 05/28/25 10:04 Pulse 97 H 05/28/25 10:04 Respiratory Rate 16 05/28/25 10:04 Blood Pressure 191/97 H 05/28/25 10:04 Pulse Oximetry 96 05/28/25 10:04 Temperature 36.6 C 05/28/25 10:04 Temperature Source Oral 05/28/25 10:04 Pulse 97 H 05/28/25 10:04 Respiratory Rate 16 05/28/25 10:04 Blood Pressure 191/97 H 05/28/25 10:04 Blood Pressure Position Supine 05/28/25 10:04 Pulse Oximetry 96 05/28/25 10:04 Oxygen Delivery Method Room Air 05/28/25 10:04 Oxygen Flow Rate 0 05/28/25 10:04 Pain Level 9 05/28/25 10:04 Medical Decision Making 80-year-old female presents to the ER accompanied by her with a chief complaint of multiple falls over the last week. Patient states that last night while she was in the kitchen in front of the refrigerator she became dizzy and fell injuring her right wrist. She is unsure if this occurs with changing positions. She was recently diagnosed with urinary tract infection and started cephalexin 250 mg yesterday. She denies any loss of consciousness or hitting her head. Her did witness the fall. She also endorses some right lower quadrant abdominal pain which radiates into the back which prompted her to be seen in the clinic and diagnosed with a UTI. This is associated with nausea vomiting diarrhea. Workup ordered including CBC CMP serial troponins, lipase magnesium, UA, CT head CT abdomen pelvis with IV contrast. Chest x-ray. Critical low potassium result received potassium is 2.7, chloride 97, BUN 29 creatinine 2.2 GFR 21 glucose 162 total bilirubin is 1.7 AST is 54 ALT 36 alk phos 182. Initial troponin 24, lipase 48, urinalysis shows 30 protein 1.0 urobilinogen better glucose culture not indicated at this time. Potassium 40 mill equivalents p.o., 20 mill equivalents IV and 200 mL normal saline an hour ordered. Repeat BMP shows potassium at 3.9 which is a vast improvement. Patient reports feeling much better. Discussed home care, follow-up care she verbalized understanding. Discussed high-protein diet. Patient was discharged into the care of her . This text was generated using [employer] dictation system, please disregard any oddities of phrase or misspellings. Medical Records Medical records reviewed: Yes I reviewed the patient's medical records. Imaging Data Radiologic Study: Imaging: CT Scan Radiologist's impression: IMPRESSION: No acute intracranial abnormality. 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 If there is a discrepancy between the preliminary and final interpretation, please notify [facility] via [email or web address]. If you do not have access to our QA portal, call our QA team at [phone] CONFIDENTIALITY STATEMENT This report is intended only for the use of the referring physician, and only in accordance with law, If you received this in error, call [phone] Page 2 of 2 Clinical indication: Dizziness and other: Dizziness, frequent falls TECHNIQUE: Imaging protocol: Computed tomography of the cervical spine without contrast. COMPARISON: CT NECK W 10/30/2021 3:11 PM FINDINGS: Bones: C6-C7 and C7-T1 degenerative disc space narrowing, endplate sclerosis/irregularity, and minimal osteophyte formation. Mild multilevel bilateral facet and uncovertebral arthropathy. Congenital incomplete fusion of the posterior arch of C1. Left C6-C7 neural foraminal narrowing. No acute fracture or malalignment. Lungs: Lung apices are normal. Soft tissues: Normal. IMPRESSION: No acute fracture or malalignment. Radiologic Study #2: Imaging: X-Ray Radiologist's impression: Exam: XR Right Wrist Exam date and time: 05/28/2025 12:25 PM Age: 80 years old Clinical indication: Pain; Wrist; Right TECHNIQUE: Imaging protocol: Radiologic exam of the right wrist. Views: 3 or more views. COMPARISON: US EXTREMITY VENOUS BI 13/08/2023 11:08 FINDINGS: Bones/joints: Degenerative changes of the 1st metacarpal carpal joint. No displaced fracture or dislocation. Decreased bone mineralization. Positive ulnar variance. Vague lucency seen in the distal scaphoid on the oblique view may represent an occult fracture. Soft tissues: Soft tissue swelling of the wrist. IMPRESSION: 1. Soft tissue swelling. 2. Vague lucency seen within the scaphoid warrants further evaluation with additional images or CT to rule out an occult fracture. 3. Degenerative changes of the 1st metacarpal carpal joint. 4. Positive ulnar variance. Thank you for allowing us to participate in the care of your patient. Dictated and Authenticated by: Ramila Zhong MD Radiologic Study #3: Imaging: X-Ray Radiologist's impression: Imaging protocol: Radiologic exam of the chest. Views: 2 views. COMPARISON: CR XR PORTABLE CHEST AP 08/25/2024 14:55 FINDINGS: Lungs: 0.7 cm nodule right mid lung versus artifact which is new compared with the prior study. Mild asymmetric reticular markings at the right base may represent developing infiltrate. Pleural spaces: Unremarkable. No pleural effusion. No pneumothorax. Heart/Mediastinum: Prosthetic aortic valve. Vasculature: Atherosclerotic disease. Bones/joints: Degenerative changes of the right and left shoulder. Multilevel degenerative scoliotic changes of the spine. IMPRESSION: 1. New 0.7 cm nodule right mid lung warrants further evaluation. 2. Vague increased reticular markings right lower lobe may represent developing infiltrate. Thank you for allowing us to participate in the care of your patient. Dictated and Authenticated by: Ramila Zhong MD Radiologic Study #4: Imaging: CT Scan Radiologist's impression: IMPRESSION: 1. Marked streak artifact degrades image quality in the right lower quadrant. Recommend ultrasound for further evaluation of right lower quadrant pain. 2. Possible air within the urinary bladder 3. Nodular cirrhotic liver. 4. Splenomegaly. 5. Advanced atherosclerotic disease with mural thrombus involving the mid abdominal aorta. 6. Additional findings as discussed above. Thank you for allowing us to participate in the care of your patient. Dictated and Authenticated by: Ramila Zhong MD Lab Data Labs: Laboratory Tests Range/Units 05/28/25 05/28/25 05/28/25 10:52 11:00 12:00 WBC (4.4-10.8) 10^3/uL 8.81 RBC (3.93-5.22) 10^6/uL 5.34 H Hgb (11.2-15.7) g/dL 16.5 H Hct (36.0-46.0) % 47.8 H MCV (80-95) fL 90 MCH (27.0-33.0) pg 30.9 MCHC (32.0-36.0) % 34.5 RDW (11.7-14.6) % 14.2 Plt Count (130-400) 10^3/uL 126 L MPV (8.0-11.0) fL 11.0 Immature Gran % % 0.3 Neutrophils % % 72.3 Lymphocytes % % 12.5 Monocytes % % 13.1 Eosinophils % % 1.2 Basophils % % 0.6 Nucleated RBC % (0.0-0.3) % 0.0 Absolute Neutrophils (1.2-6.7) 10^3/uL 6.37 Absolute Lymphocytes (1.2-3.4) 10^3/uL 1.10 L Absolute Monocytes (0.1-0.8) 10^3/uL 1.15 H Absolute Eosinophils (0.0-0.7) 10^3/uL 0.11 Absolute Basophils (0.0-0.2) 10^3/uL 0.05 PT (9.1-11.1) sec 11.6 H INR (0.9-1.1) 1.2 H Sodium (136-145) mmol/L 140 Potassium (3.5-5.1) mmol/L 2.7 L* Chloride (98-107) mmol/L 97 L Carbon Dioxide (21.0-32.0) mmol/L 30.3 Anion Gap (3-11) mmol/L 12.7 H BUN (7-18) mg/dL 29 H Creatinine (0.55-1.02) mg/dL 2.2 H Est GFR (CKD-EPI 2020) (mL/min/1.73m2) 21.84 Glucose (74-106) mg/dL 162 H Calcium (8.5-10.1) mg/dL 10.2 H Magnesium (1.8-2.4) mg/dL 2.4 Total Bilirubin (0.2-1.0) mg/dL 1.7 H AST (15-37) U/L 54 H ALT (14-59) U/L 36 Alkaline Phosphatase (46-116) U/L 182 H Troponin I (<or=51) ng/L 24 Cancelled Total Protein (6.4-8.2) g/dL 7.3 Albumin (3.4-5.0) g/dL 3.9 Lipase (<78) U/L 48 Urine Color (Yellow) Yellow Urine Clarity (Clear) Clear Urine pH (5-8) 5.5 Ur Specific [place] (1.005-1.025) 1.010 Urine Protein (Neg-Trace) mg/dL 30 H Urine Ketones (Negative) mg/dL Negative Urine Blood (Negative) Negative Urine Nitrite (Negative) Negative Urine Bilirubin (Negative) Negative Urine Urobilinogen (Up to 0.2) mg/dL 1.0 H Ur Leukocyte Esterase (Negative) Negative Urine RBC (0-2) HPF 0-2 Urine WBC (0-5) HPF 5-10 Ur Epithelial Cells (Negative) HPF Many Urine Crystals (Negative) HPF Few Amorphous Urine Bacteria (Negative) HPF Few Urine Casts (Negative) LPF 10-20 Fine Granular Urine Mucus (Negative) Trace Urine Other (Negative) Few Renal Ur Culture Indicated? No Urine Glucose (Negative) mg/dL 500 H Range/Units 05/28/25 12:37 WBC (4.4-10.8) 10^3/uL RBC (3.93-5.22) 10^6/uL Hgb (11.2-15.7) g/dL Hct (36.0-46.0) % MCV (80-95) fL MCH (27.0-33.0) pg MCHC (32.0-36.0) % RDW (11.7-14.6) % Plt Count (130-400) 10^3/uL MPV (8.0-11.0) fL Immature Gran % % Neutrophils % % Lymphocytes % % Monocytes % % Eosinophils % % Basophils % % Nucleated RBC % (0.0-0.3) % Absolute Neutrophils (1.2-6.7) 10^3/uL Absolute Lymphocytes (1.2-3.4) 10^3/uL Absolute Monocytes (0.1-0.8) 10^3/uL Absolute Eosinophils (0.0-0.7) 10^3/uL Absolute Basophils (0.0-0.2) 10^3/uL PT (9.1-11.1) sec INR (0.9-1.1) Sodium (136-145) mmol/L Potassium (3.5-5.1) mmol/L Chloride (98-107) mmol/L Carbon Dioxide (21.0-32.0) mmol/L Anion Gap (3-11) mmol/L BUN (7-18) mg/dL Creatinine (0.55-1.02) mg/dL Est GFR (CKD-EPI 2020) (mL/min/1.73m2) Glucose (74-106) mg/dL Calcium (8.5-10.1) mg/dL Magnesium (1.8-2.4) mg/dL Total Bilirubin (0.2-1.0) mg/dL AST (15-37) U/L ALT (14-59) U/L Alkaline Phosphatase (46-116) U/L Troponin I (<or=51) ng/L 21 Total Protein (6.4-8.2) g/dL Albumin (3.4-5.0) g/dL Lipase (<78) U/L Urine Color (Yellow) Urine Clarity (Clear) Urine pH (5-8) Ur Specific [place] (1.005-1.025) Urine Protein (Neg-Trace) mg/dL Urine Ketones (Negative) mg/dL Urine Blood (Negative) Urine Nitrite (Negative) Urine Bilirubin (Negative) Urine Urobilinogen (Up to 0.2) mg/dL Ur Leukocyte Esterase (Negative) Urine RBC (0-2) HPF Urine WBC (0-5) HPF Ur Epithelial Cells (Negative) HPF Urine Crystals (Negative) HPF Urine Bacteria (Negative) HPF Urine Casts (Negative) LPF Urine Mucus (Negative) Urine Other (Negative) Ur Culture Indicated? Urine Glucose (Negative) mg/dL Critical Care Time Critical Care Time Critical Care Time: Yes Total Critical Care Time: 35 Attestation: I spent greater than 35 minutes addressing this patient's acute life threatening illness. This time was spent engaged in actions directly related to the patient's care. Failure to initiate these interventions would have likely resulted in clinically significant or life threatening deterioration in the patients condition. PFSH All Active Problems (Updated 05/28/25 @ 15:04 by Sylvia Fernandez NP) Closed fracture of scaphoid of right wrist (Acute) Acute hypokalemia (Acute) Lumbosacral spondylosis without myelopathy (Acute) Cervical spondylosis without myelopathy (Acute) Memory changes (Acute) Essential tremor (Acute) Heart failure with preserved left ventricular function (Acute) CKD (chronic kidney disease) (Chronic) PAF (paroxysmal atrial fibrillation) (Acute) Acute hypoxic respiratory failure (Acute) Decreased renal function (Acute) Hypoxia (Acute) CHF (congestive heart failure) (Chronic) Diabetes type 2, controlled (Chronic) Hypertension (Chronic) Pulmonary embolism (Acute) Loosening of prosthesis of right hip joint (Acute) s/p Revision R Acetabular Component (07/29/23) History of revision of total hip arthroplasty (Acute 07/29/23) Strain of right iliopsoas muscle (Acute) Imbalance (Acute) Displaced fracture of greater trochanter of right femur, subsequent encounter for closed fracture with nonunion (Acute) Strain of right iliopsoas muscle (Acute) Unstable angina (Acute) Dyspnea (Acute) Angina at rest (Acute) Coronary atherosclerosis (Acute) Spinal stenosis (Acute) Left knee DJD (Acute) Depo-Medrol injection: 06/24/2022 Benign paroxysmal positional vertigo (Acute) Sleep apnea (Acute) Mitral regurgitation (Chronic) Diastolic dysfunction (Acute) 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) GERD (gastroesophageal reflux disease) (Chronic) Renal artery stenosis (Chronic) History of syncope (Chronic) SVT (supraventricular tachycardia) (Chronic) Diabetes mellitus (Chronic) Medical History Atherosclerosis of renal artery Not for resuscitation History of stent insertion of renal artery Atherosclerosis of coronary artery bypass graft without angina pectoris Cerebral infarction Malignant neoplasm of breast (female) Obesity Carotid artery stenosis Femoral artery stenosis History of transcatheter aortic valve implantation (DRE) Urge incontinence of urine Peptic ulcer Type 2 diabetes mellitus Headache Cirrhosis of liver Insomnia Splenomegaly Postmenopausal osteoporosis Edema of both lower extremities Depressive disorder Marginal zone lymphoma Heart failure Hypokalemia Pulmonary edema Pleural effusion History of small bowel obstruction Dizziness Difficult airway Per [facility] anesthesia notes she is a difficult airway. She has had previous intubations with VL grade 1 view. Also easy mask with 90 mm OPA, and successful LMA placement in the past. Shortness of breath Nasal septal deviation Sensorineural hearing loss of both ears Recurrent UTI (03/15/16) Gastro-esophageal reflux disease without esophagitis Hyperlipidemia STEVENS (nonalcoholic steatohepatitis) TERRY (obstructive sleep apnea) PVD (peripheral vascular disease) Hypertension Hypothyroidism Syncope SVT (supraventricular tachycardia) F/U with Dr. Sweet Surgical History S/P TAVR (transcatheter aortic valve replacement) S/P cardiac catheterization History of heart assist device [employer] [facility] History of lumpectomy of right breast Hx of tonsillectomy History of total left hip replacement History of esophagogastroduodenoscopy (EGD) (~07/2021) History of colonoscopy (~07/2021) Rotator Cuff Repair Partial mastectomy with sentinal node Pt. states this is incorrect, she had a lumpectomy Nail removal (toe) Excision of neck mass Family History Mother Malignant tumor of stomach Father Malignant carcinoid tumor of lung Social History Smoking/Tobacco Use Status: Never Smoking risk assessment performed?: Yes Alcohol Intake: never Drug use: Never Substance use type: does not use Household members: significant other Housing: house Number of Children: 4 current occupation: Retired Do you feel safe at home: Yes Do you feel safe in your relationship?: Yes Female Reproductive History Menstrual Menopause type: natural
[2025-05-28 11:02] LABS: Abs Immature Grans 0.03 10^3/uL (0.0-0.06); HCT 47.8 % (36.0-46.0); HGB 16.5 g/dL (11.2-15.7); Immature Grans % 0.3 %; MCH 30.9 pg (27.0-33.0); MCHC 34.5 % (32.0-36.0); MCV 90 fL (80-95); MPV 11.0 fL (8.0-11.0); Platelet Count 126 10^3/uL (130-400); RBC 5.34 10^6/uL (3.93-5.22); RDW 14.2 % (11.7-14.6); RDW-SD 46.7 fL; WBC 8.81 10^3/uL (4.4-10.8)
[2025-05-28 11:12] LABS: INR 1.2 (0.9-1.1); Prothrombin Time 11.6 sec (9.1-11.1)
[2025-05-28 11:15] LABS: Glucose 500 mg/dL (Negative)
[2025-05-28 11:23] LABS: ALT 36 U/L (14-59); AST 54 U/L (15-37); Albumin 3.9 g/dL (3.4-5.0); Alkaline Phosphatase 182 U/L (46-116); Anion Gap 12.7 mmol/L (3-11); BUN 29 mg/dL (7-18); Bilirubin, Total 1.7 mg/dL (0.2-1.0); CO2 30.3 mmol/L (21.0-32.0); Calcium 10.2 mg/dL (8.5-10.1); Chloride 97 mmol/L (98-107); Estimated GFR 21.84 (mL/min/1.73m2); Glucose 162 mg/dL (74-106); Lipase 48 U/L (<78); Magnesium 2.4 mg/dL (1.8-2.4); Sodium 140 mmol/L (136-145); Total Protein 7.3 g/dL (6.4-8.2); Troponin I 24 ng/L (<or=51)
[2025-05-28 11:29] LABS: Potassium 2.7 mmol/L (3.5-5.1)
[2025-05-28 11:30] LABS: RBC 0-2 HPF (0-2)
[2025-05-28 11:31] LABS: C & S Indicated? No
--- NOTE | 2025-05-28 11:45 | DI.CT_ITS ---
Exam(s) CT ABDOMEN PELVIS WO EXAM: CT ABDOMEN PELVIS WO CLINICAL HISTORY: RLQ abd pain, N/V/D. TECHNIQUE: Imaging Protocol: Axial computed tomography images with coronal and sagittal reformatted images were created and reviewed CONTRAST MATERIAL: Intravenous: none Oral: None COMPARISON: CT CT CHEST PE CTA from 11/28/2023 FINDINGS: VISUALIZED LUNG BASES: No nodules nor pleural effusions evident. Previously present pleural effusions which were evident on CT scan of November 2023 no longer seen. On the present study the visualized lung bases are clear. ABDOMEN: There is no ascites. LIVER: Cirrhotic liver again noted. Small hypodensity in the upper right hepatic lobe noted measuring 1.1 x 0.9 cm somewhat difficult to assess without IV contrast but more evident than on the prior November [address]23 CT scan. No other obvious focal liver findings on this non infused CT study.. GALLBLADDER/BILIARY: No obvious gallbladder pathology. CBD is not dilated. PANCREAS: No evidence of pancreatic mass nor dilatation of the pancreatic duct. SPLEEN: Splenomegaly is again noted. Craniocaudal length of the spleen is 16 cm. ADRENALS: Small exophytic nodule off the posterior aspect of the spleen is unchanged, measuring 1 cm. KIDNEYS:No cysts evident. No solid renal masses. No calculi nor hydronephrosis. . ABDOMINAL AORTA: Calcified. There is a mild fusiform infrarenal abdominal aortic aneurysm which measures 2.3 cm. There is a stent in the proximal right renal artery. Possible also stent at the origin the left renal artery. Common iliac arteries are calcified but not enlarged. LYMPH NODES: There is no retroperitoneal nor paraaortic adenopathy. ABDOMINAL WALL: No evidence of significant anterior abdominal wall nor inguinal hernia. GI: Speckled material in the colon is probably ingested medication by the patient. It this is seen throughout the length of the colon. PELVIS: LYMPH NODES: There is no intrapelvic nor inguinal adenopathy. GI: No evidence of appendicitis.Sigmoid diverticuli. No obvious acute diverticulitis although the lower sigmoid is somewhat obscured by beam hardening artifact from bilateral hip prostheses. URINARY BLADDER: Contains some air but difficult to assess bladder because of beam hardening artifact from bilateral hip prostheses. REPRODUCTIVE: Uterus and adnexal regions appear age-appropriate. Adnexa regions are partially obscured by beam hardening artifact from bilateral hip prostheses. There does not appear to be any obvious free fluid in the pelvis. OSSEOUS: Bilateral hip prostheses. Bones in a sacroiliac joints appear unremarkable. No fractures. Multilevel chronic degenerative disc disease. No listhesis. IMPRESSION: 1. In this patient with right lower quadrant pain the appendix appears unremarkable and there are no obvious acute findings in the pelvis although part of the bladder and adnexal regions are obscured by beam hardening artifact from the bilateral hip prostheses here. 2. There are sigmoid diverticuli but no evidence of obvious acute diverticulitis. 3. Air within the urinary bladder. The bladder does not appear overly distended. Bladder is difficult to assess because of beam hardening artifact from bilateral hip prostheses. 4. Hepatic cirrhosis and splenomegaly again noted. There does appear to be a small hypodensity in the right hepatic lobe which is more evident than on prior studies, this measuring approximately 1 centimeter. This is difficult to assess without IV contrast. Preliminary virtual Radiology report was reviewed. RADIATION DOSE DELIVERED: 827.22mGy.cm Total DLP DATA REPOSITORY: All CT scans at this facility are submitted to the National Radiology Data Registry (NRDR) Dose Index Registry (DIR) with the [employer] (ACR). RADIATION OPTIMIZATION: All CT scans at this facility use at least one of these dose optimization techniques: automated exposure control; mA and/or kV adjustment per patient size (includes targeted exams where dose is matched to clinical indication); or iterative reconstruction.
--- NOTE | 2025-05-28 11:45 | DI.CT_ITS ---
Exam(s) CT HEAD NECK WO EXAM: CT HEAD NECK WO CLINICAL HISTORY: Dizziness, frequent falls. TECHNIQUE: Imaging Protocol: Axial computed tomography images with coronal and sagittal reformatted images were created and reviewed COMPARISON: CT CT HEAD CERVICAL SPINE WO from 02/17/2023 FINDINGS: BRAIN: There are no skull fractures nor fluid in the visualized paranasal sinuses. There is no evidence of intracranial hemorrhage, mass effect, or shift of midline structures. There are no extra-axial fluid collections. The ventricles are not enlarged or shifted and there is no blood within the ventricular system nor within the basal cisterns. CERVICAL SPINE: There is no evidence of fracture nor listhesis. No significant prevertebral soft tissue swelling. Some moderate disc space narrowing noted at C6-7. Other disc spaces exhibit normal height. Multilevel facet arthropathy. There is no significant facet joint malalignment. No significant osseous lesions evident. IMPRESSION: No acute intracranial findings on this noninfused CT scan of the brain. No evidence of cervical spine fracture, malalignment, nor acute compromise of the cervical spinal canal. Multilevel degenerative changes. RADIATION DOSE DELIVERED: 1,207.12mGy.cm Total DLP DATA REPOSITORY: All CT scans at this facility are submitted to the National Radiology Data Registry (NRDR) Dose Index Registry (DIR) with the [employer] (ACR). RADIATION OPTIMIZATION: All CT scans at this facility use at least one of these dose optimization techniques: automated exposure control; mA and/or kV adjustment per patient size (includes targeted exams where dose is matched to clinical indication); or iterative reconstruction.
[2025-05-28] MEDS: Potassium Chloride Liquid 20 MEQ PKT 40 MEQ PO (11:51)
[2025-05-28] MEDS: LORazepam 0.5 MG TAB PO (12:35)
[2025-05-28] MEDS: Normal Saline 1,000 ML 200 ML IV (12:37)
[2025-05-28] MEDS: POTASSIUM CHLORIDE 20 MEQ/100 ML BAG 50 MEQ IV_INF (12:39)
[2025-05-28 13:09] LABS: Troponin I 21 ng/L (<or=51)
[2025-05-28] MEDS: Acetaminophen 500 MG TAB PO (13:28)
--- NOTE | 2025-05-28 14:21 | DI.VRAD_ITS ---
PROCEDURE INFORMATION: Exam: CT Head Without Contrast Exam date and time: 05/28/2025 12:02 PM Age: 80 years old Clinical indication: Dizziness and other: Dizziness, frequent falls TECHNIQUE: Imaging protocol: Computed tomography of the head without contrast. COMPARISON: CT HEAD CERVICAL SPINE WO 02/17/2023 7:10 PM FINDINGS: Brain: Periventricular and subcortical white matter areas of hypoattenuation, likely chronic small vessel ischemic change, demyelination, or gliosis. No intracranial mass, acute hemorrhage, or acute infarction. Cerebral ventricles: No ventriculomegaly. Paranasal sinuses: Visualized sinuses are unremarkable. No fluid levels. Mastoid air cells: Normal as visualized. Bones: Unremarkable. No acute fracture. Soft tissues: Unremarkable. Vasculature: Atherosclerotic vascular disease. IMPRESSION: No acute intracranial abnormality. PROCEDURE INFORMATION: Exam: CT Cervical Spine Without Contrast Exam date and time: 05/28/2025 12:02 PM Age: 80 years old Clinical indication: Dizziness and other: Dizziness, frequent falls TECHNIQUE: Imaging protocol: Computed tomography of the cervical spine without contrast. COMPARISON: CT NECK W 10/30/2021 3:11 PM FINDINGS: Bones: C6-C7 and C7-T1 degenerative disc space narrowing, endplate sclerosis/irregularity, and minimal osteophyte formation. Mild multilevel bilateral facet and uncovertebral arthropathy. Congenital incomplete fusion of the posterior arch of C1. Left C6-C7 neural foraminal narrowing. No acute fracture or malalignment. Lungs: Lung apices are normal. Soft tissues: Normal. IMPRESSION: No acute fracture or malalignment. Dictated and Authenticated by: Kain Jean MD. Orderin Jim Ward MD
--- NOTE | 2025-05-28 14:39 | DI.VRAD_ITS ---
PROCEDURE INFORMATION: Exam: CT Abdomen And Pelvis Without Contrast Exam date and time: 05/28/2025 12:06 PM Age: 80 years old Clinical indication: Nausea and vomiting and other: Rlq pain; Rlq pain, n/v/d TECHNIQUE: Imaging protocol: Computed tomography of the abdomen and pelvis without contrast. COMPARISON: CT ABDOMEN PELVIS WO 10/25/2021 03:17 FINDINGS: Limitations: Marked streak artifact. Coronary arteries: Calcified coronary arteries. Liver: Enlarged nodular irregular contour of the liver consistent with cirrhosis. Gallbladder and biliary ducts: Vague hypodensity in the dome of the liver series 2, image 50 incompletely evaluated on this noncontrast CT. Distended gallbladder. Pancreas: Normal. No ductal dilation. Spleen: Splenomegaly. The spleen measures 16.3 cm. Small splenule. Adrenal glands: Normal. No mass. Kidneys and ureters: Normal. No hydronephrosis. Stomach and bowel: Diverticulosis. No obstruction. No mucosal thickening. Appendix: No evidence of appendicitis. Intraperitoneal space: Unremarkable. No free air. No significant fluid collection. Vasculature: Atherosclerotic disease. Stenosis at the origin of the superior mesenteric artery and the celiac artery. Mural thrombus involving the mid abdominal aorta series 2, image 149 -180. Lymph nodes: Unremarkable. No enlarged lymph nodes. Urinary bladder: Possible air in the urinary bladder series 2, image 329, however the images are limited secondary to metallic artifact. Reproductive: Unremarkable as visualized. Bones/joints: Bilateral total hip arthroplasties. Multilevel degenerative scoliotic changes of the visualized thoracic and lumbar spine. Soft tissues: Umbilical hernia with omental fat. IMPRESSION: 1. Marked streak artifact degrades image quality in the right lower quadrant. Recommend ultrasound for further evaluation of right lower quadrant pain. 2. Possible air within the urinary bladder 3. Nodular cirrhotic liver. 4. Splenomegaly. 5. Advanced atherosclerotic disease with mural thrombus involving the mid abdominal aorta. 6. Additional findings as discussed above. Dictated and Authenticated by: Ramila Zhong MD. Orderin Jim Ward MD
--- NOTE | 2025-05-28 14:49 | DI.VRAD_ITS ---
PROCEDURE INFORMATION: Exam: XR Right Wrist Exam date and time: 05/28/2025 12:25 PM Age: 80 years old Clinical indication: Pain; Wrist; Right TECHNIQUE: Imaging protocol: Radiologic exam of the right wrist. Views: 3 or more views. COMPARISON: US EXTREMITY VENOUS BI 13/08/2023 11:08 FINDINGS: Bones/joints: Degenerative changes of the 1st metacarpal carpal joint. No displaced fracture or dislocation. Decreased bone mineralization. Positive ulnar variance. Vague lucency seen in the distal scaphoid on the oblique view may represent an occult fracture. Soft tissues: Soft tissue swelling of the wrist. IMPRESSION: 1. Soft tissue swelling. 2. Vague lucency seen within the scaphoid warrants further evaluation with additional images or CT to rule out an occult fracture. 3. Degenerative changes of the 1st metacarpal carpal joint. 4. Positive ulnar variance. Dictated and Authenticated by: Ramila Zhong MD. Orderin Jim Ward MD
--- NOTE | 2025-05-28 14:52 | DI.VRAD_ITS ---
PROCEDURE INFORMATION: Exam: XR Chest Exam date and time: 05/28/2025 12:17 PM Age: 80 years old Clinical indication: Shortness of breath TECHNIQUE: Imaging protocol: Radiologic exam of the chest. Views: 2 views. COMPARISON: CR XR PORTABLE CHEST AP 08/25/2024 14:55 FINDINGS: Lungs: 0.7 cm nodule right mid lung versus artifact which is new compared with the prior study. Mild asymmetric reticular markings at the right base may represent developing infiltrate. Pleural spaces: Unremarkable. No pleural effusion. No pneumothorax. Heart/Mediastinum: Prosthetic aortic valve. Vasculature: Atherosclerotic disease. Bones/joints: Degenerative changes of the right and left shoulder. Multilevel degenerative scoliotic changes of the spine. IMPRESSION: 1. New 0.7 cm nodule right mid lung warrants further evaluation. 2. Vague increased reticular markings right lower lobe may represent developing infiltrate. Dictated and Authenticated by: Ramila Zhong MD. Orderin Jim Ward MD
[2025-05-28 14:54] LABS: Anion Gap 9.5 mmol/L (3-11); BUN 29 mg/dL (7-18); CO2 29.5 mmol/L (21.0-32.0); Calcium 9.5 mg/dL (8.5-10.1); Chloride 99 mmol/L (98-107); Estimated GFR 24.48 (mL/min/1.73m2); Glucose 132 mg/dL (74-106); Potassium 3.9 mmol/L (3.5-5.1); Sodium 138 mmol/L (136-145)
--- NOTE | 2025-05-30 17:14 | NUR.NOTE ---
Access chart to determine if a referral was done and completed. Nursing Note:
== END 2025-05-28 15:30 | disposition home or self-care (01) ==
PROVIDERS: Emergency Provider Registered Nurse Emergency; PCP Family Medicine
DX: S62.001A Unspecified fracture of navicular [scaphoid] bone of right wrist, initial encounter for closed fracture (principal); R42 Dizziness and giddiness; I10 Essential (primary) hypertension; E87.6 Hypokalemia; R10.31 Right lower quadrant pain; Z86.79 Personal history of other diseases of the circulatory system; W19.XXXA Unspecified fall, initial encounter
CPT/HCPCS: 36415; 80048; 80053; 83690; 93005; 96360; 96361; 99291; 70450; 70490; 71046; 73110; 74176; 81003; 81015; 83735; 84484; 85025; 85610; 93010; J3480

== ENCOUNTER 2025-06-13 12:22 | Outpatient (CLI) | payer MEDICARE, SELFPAY ==
--- NOTE | 2025-06-13 11:45 | DI.RAD_ITS ---
Exam(s) XR WRIST RT COMPLETE EXAM: XR WRIST RT COMPLETE CLINICAL HISTORY: F/U R SCAPHOID FX. TECHNIQUE: 2D digital imaging was performed of the right wrist. Three views were obtained. PA, lateral and oblique views were obtained. COMPARISON: CR,XR XR WRIST RT COMPLETE from 05/28/2025 FINDINGS: BONES: On the oblique view, there is a persistent lucency partially through the waist of the scaphoid. This may be artifactual. This is not confirmed on the other views obtained. There is overlapping of the distal radius in this region contributing to the artifact. There is no periosteal reaction. No bony destructive lesion is seen. JOINTS: The carpal bones are normally aligned. There are moderate degenerative changes seen at the 1st CMC joint. SOFT TISSUE: Normal. IMPRESSION: No definite scaphoid fracture is seen. A scaphoid view and/or CT scan is recommended for further evaluation. DATA REPOSITORY: RADIATION DOSE DELIVERED:
== END 2025-06-13 12:23 | disposition home or self-care (01) ==
LOC: DIORS 12:23
PROVIDERS: PCP Family Medicine; Referring Provider Family Medicine; Visit Provider Student in an Organized Health Care Education/Training Program
DX: S62.001A Unspecified fracture of navicular [scaphoid] bone of right wrist, initial encounter for closed fracture (principal); M75.81 Other shoulder lesions, right shoulder; M25.512 Pain in left shoulder; M25.511 Pain in right shoulder; W19.XXXA Unspecified fall, initial encounter
CPT/HCPCS: 99213; 20610; J1010; 73110

== ENCOUNTER 2025-06-14 10:38 | Outpatient (CLI) | payer MEDICARE, SELFPAY | END 2025-06-14 10:39 | disposition home or self-care (01) | PROVIDERS: PCP Family Medicine; Visit Provider Family Medicine | DX: R55 Syncope and collapse (principal) | CPT/HCPCS: 93246 ==

== ENCOUNTER 2025-06-21 14:02 | Outpatient (REF) | payer MEDICARE, SELFPAY ==
[2025-06-21 20:13] LABS: Anion Gap 11.8 mmol/L (3-11); BUN 15 mg/dL (7-18); CO2 25.2 mmol/L (21.0-32.0); Calcium 9.0 mg/dL (8.5-10.1); Chloride 105 mmol/L (98-107); Estimated GFR 32.00 (mL/min/1.73m2); Glucose 119 mg/dL (74-106); Potassium 3.5 mmol/L (3.5-5.1); Sodium 142 mmol/L (136-145); TSH (W/Ref FT4) 0.87 uIU/mL (0.36-3.74)
== END 2025-06-21 14:03 | disposition home or self-care (01) ==
LOC: NCHCN 14:02
PROVIDERS: PCP Family Medicine; Visit Provider Family Medicine
DX: N18.9 Chronic kidney disease, unspecified (principal); E03.9 Hypothyroidism, unspecified
CPT/HCPCS: 80048; 84443

== ENCOUNTER 2025-06-29 08:00 | Outpatient (CLI) | payer MEDICARE, SELFPAY ==
--- NOTE | 2025-06-29 06:00 | DI.RAD_ITS ---
Exam(s) XR PAIN CLINIC LUMBAR SP 2V EXAM: XR PAIN CLINIC LUMBAR SP 2V CLINICAL HISTORY: Dx: Lumbar Spondylosis TECHNIQUE: 2D and realtime digital imaging was performed. Radiologist not present. CONTRAST MATERIAL: None. COMPARISON: No exams were available for comparison FINDINGS: Fluoroscopy was provided for pain management therapy. Lumbar branch block Please refer to procedure report or details. Radiation Exposure Index: Ka,r=16.30 mGy IMPRESSION: As above. RADIATION DOSE DELIVERED:
[2025-06-29 08:35] VITALS: BP 121/73; PULSE 76; RESP 18; TEMP 36.3; O2SAT 99
--- NOTE | 2025-06-29 09:27 | PDOC.PAIN_ITS ---
Date of service: 06/29/25 Time of Service: 09:27 Pain Managment Procedure Note Procedure Note Procedure Note: PROCEDURE NOTE Bilateral Lumbar Medial Branch Blocks Date of Service: June 29, 2025 Patient: Silvia Vega Provider: Herminio Burk DO, MPH [place] Vega has been referred to the [facility] for lumbar medial branch blocks. Pre-operative diagnosis: Lumbar Spondylosis without Myelopathy ICD-10 M47.816 Post-operative diagnosis: Same Pre-procedure pain: VAS= 4/10 COMMENTS: She did very well with her first LMBBs. We had a delay in this second one as she had a UTI. This is cleared up and she is off antibiotics. Silvia was interviewed and the medical records were reviewed. There were no medical, pharmacologic, radiographic or other structural contraindications to attempting fluoroscopically guided local anesthetic lumbar medial branch blocks. Risks and potential side effects were discussed. I also discussed the potential benefit(s) of the procedure with Silvia, and voiced concerns were addressed. After Silvia was completely informed about the procedure, the printed consent form was signed. A standard time-out procedure was performed. Silvia was placed in the prone position on the fluoroscopy table. Automated blood pressure cuff and pulse oximeter were applied. The skin entry points for approaching the anatomic target points of the segmental medial branches of bilateral L3,L4,L5 were identified with fluoroscopy and marked. The skin at the target site area was thoroughly prepared with Chlorhexadine. The skin was then draped. Next, a 25 gauge 3.5 spinal needle was placed under fluoroscopic guidance down on to the target point (the articular pillar) for each respective segmental medial branch. Position was confirmed in A/P and lateral views. Aspiration revealed no blood or clear fluid. Next, 0.25ml of omnipaque 240 was injected at each level. No contrast following a vascular or neural pattern was visualized under continuous fluoroscopy. Next, 0.25 ml of preservative-free 0.5% bupivicaine was injected at each level. There was no unusual discomfort expressed by Silvia. The needles were withdrawn without difficulty. (49 mls of Omnipaque was wasted) Silvia was observed and was without hemodynamic, neurologic, or allergic reactions. Fluoroscopic images were digitally archived. Provacative testing using the Modified Jacobsen's facet loading test- Left side Right Side Directly before the block VAS (0-10) = 4/10 VAS (0-10) = 4/10 Five minutes after the block VAS (0-10) = 0/10 VAS (0-10) = 0/10 Percentage relief obtained with this diagnostic block 100% 100% Any improved physical functioning directly after the blocks? Able to more easily move her low back. Follow up plans and appointments were discussed with Silvia. Silvia was instructed to keep careful note of how the usual pain was modified by these injections. Specifically, to keep a pain diary for the next 4 hours using a numeric pain scale of 0-10 and report these results. Post procedure instruction was given as documented in the nursing documentation and having met discharge criteria, the patient was [facility] from the [facility]. Based on the medial branches blocked today, if they patient has adequate relief and we are able to proceed to radiofrequency ablation, the treatment should result in the denervation of the bilateral L4-L5 and L5-S1 facet joints. We would expect to denervate a total of 4 facets during the radiofrequency ablation. COMMENTS: No apparent complications. Post-procedure pain: VAS= 0/10 Silvia will call back with 0-4 hour post-procedure pain scores. I personally performed the entire procedure. HERMINIO BURK DO, MPH ABPM&R-subspecialty board certification in Pain Medicine [facility] Coding Conscious Sedation used for procedure: No CPT Codes: LMBB (includes Fluoro) Lumbar/Sacral, 2nd lvl - 71255 ([id number] ~G) LMBB (includes Fluoro) Lumbar/Sacral, single lvl *BILATERAL* - [id number] ([id number]~G5) Additional Codes: Date of Service () Diagnoses: lumbar spondylosis without myelopathy
[2025-06-29 09:35] VITALS: BP 135/76; PULSE 69; RESP 18; O2SAT 96
[2025-06-29] MEDS: Omnipaque 240 MG/ML 50 ML BTL IJ (09:37)
[2025-06-29] MEDS: Nerve Block Tray 1 EACH MC (09:37)
[2025-06-29] MEDS: Bupivacaine 0.5% Pres-Free 10 ML VIAL IJ (09:37)
== END 2025-06-29 08:01 | disposition home or self-care (01) ==
LOC: PC 08:00
PROVIDERS: PCP Family Medicine; Visit Provider Preventive Medicine Occupational Medicine
DX: M54.50 Low back pain, unspecified (principal); M47.816 Spondylosis without myelopathy or radiculopathy, lumbar region
CPT/HCPCS: 64493; 64494; 72100; J0665; Q9967

== ENCOUNTER → 2025-07-04 10:17 | Outpatient (BNVA) | payer MEDICARE, SELFPAY | PROVIDERS: PCP Family Medicine; Referring Provider Family Medicine; Visit Provider Physician Assistant | DX: M75.81 Other shoulder lesions, right shoulder (principal); S69.91XD Unspecified injury of right wrist, hand and finger(s), subsequent encounter; W19.XXXD Unspecified fall, subsequent encounter | CPT/HCPCS: 99212 ==

== ENCOUNTER 2025-07-05 07:22 | Outpatient (CLI) | payer MEDICARE, SELFPAY ==
--- NOTE | 2025-07-05 09:28 | W.CARDEVENT ---
Date of service: 07/05/25 Time of Service: 09:28 Cardiac Event Recorder Referring Provider:: Jena Mitchell Indications:: Syncope Cardiac Event Note: This is a cardiac event monitor. Patient was monitored for 1 day and 11 hours Rhythm throughout was atrial fibrillation. Average 65. Minimum was 41, maximum 102 There were very rare isolated ventricular ectopic beats There were no pauses greater than 3 seconds, no high-grade AV block No symptoms were reported
== END 2025-07-05 07:23 | disposition home or self-care (01) ==
LOC: CARDOPNVT 07:22
PROVIDERS: PCP Family Medicine; Visit Provider Internal Medicine Cardiovascular Disease
DX: R55 Syncope and collapse (principal)
CPT/HCPCS: 93248

== ENCOUNTER → 2025-08-17 00:08 | Outpatient (CLI) | payer MEDICARE, SELFPAY ==
--- NOTE | 2025-08-17 13:47 | DI.CT_ITS ---
Exam(s) CT CHEST WO EXAM: CT CHEST WO CLINICAL HISTORY: R91.1 SOLITARY PULMONARY NODULE. TECHNIQUE: Multi planar reconstructions were performed. CONTRAST MATERIAL: None COMPARISON: CT CT CHEST PE CTA from 11/28/2023 CR,XR XR CHEST 2V PA LATERAL from 05/28/2025 FINDINGS: CHEST: LUNGS: There are few tiny benign calcified granulomas in the left lung. No confluent infiltrates nor ominous left lung nodules and no left pleural effusion. In the right-side there is a small pleural effusion evident. Also some benign- appearing pleural thickening anteriorly, noncalcified. There is an anteriorly located nodular density in in the right upper lobe measuring 1.0 x 0.6 cm, this possibly corresponding to the finding seen on recent chest x-ray. MEDIASTINUM: There is no obvious hilar nor mediastinal adenopathy. Thyroid gland is diminutive.No obvious axillary adenopathy CARDIAC: Heart size is normal. There is no pericardial effusion.There is an aortic valve TAVR in place. Another device is seen in the left side of the left atrium VISUALIZED UPPER ABDOMEN:Cirrhotic appearing liver. Splenomegaly. No significant adrenal masses. No ascites. Bilateral renal artery stents are also noted. OSSEOUS: No significant osseous lesions.. IMPRESSION: 1. There is a small unilateral right pleural effusion. Small density in the anterior right lung right upper lobe as described above which probably corresponds to the small nodule seen on the recent chest x-ray. Recommend repeat imaging in 3 months. The opposite-left lung is clear. No intrathoracic adenopathy evident. 2. Aortic valve TAVR evident. Another stent like device is seen in the left side of the heart, possibly related to left atrial appendage. 3. Hepatic cirrhosis. Splenomegaly. Bilateral renal artery stents. RADIATION DOSE DELIVERED: 267.67mGy.cm Total DLP DATA REPOSITORY: All CT scans at this facility are submitted to the National Radiology Data Registry (NRDR) Dose Index Registry (DIR) with the [employer] (ACR). RADIATION OPTIMIZATION: All CT scans at this facility use at least one of these dose optimization techniques: automated exposure control; mA and/or kV adjustment per patient size (includes targeted exams where dose is matched to clinical indication); or iterative reconstruction.
== END ==
LOC: DI 00:08
PROVIDERS: PCP Family Medicine; Visit Provider Family Medicine
DX: R91.1 Solitary pulmonary nodule (principal); K70.30 Alcoholic cirrhosis of liver without ascites; R16.1 Splenomegaly, not elsewhere classified; I70.1 Atherosclerosis of renal artery
CPT/HCPCS: 71250